=== PATIENT | female | born 1945 | race Caucasian/White ===

== ENCOUNTER 2020-06-04 11:11 | Outpatient (CLI) | payer MEDICARE, SELFPAY ==
--- NOTE | 2020-06-04 11:16 | ECG_ITS ---
Measurements Intervals [place] Rate: 115 P: [place]: 0 QRS: 224 QRSD: 149 T: 64 QT: 329 QTc: 457 Interpretive Statements ATRIAL FLUTTER/TACHYCARDIA WITH RAPID VENTRICULAR RESPONSE RIGHT AXIS DEVIATION RIGHT BUNDLE BRANCH BLOCK ABNORMAL ECG Electronically Signed On 06-04-2020 11:35:34 CDT by Eriberto Barone D.O.
== END 2020-06-04 11:12 | disposition home or self-care (01) ==
LOC: CHSCARD 11:16
PROVIDERS: PCP Nurse Practitioner Family; Visit Provider Family Medicine
DX: R00.0 Tachycardia, unspecified (principal)
CPT/HCPCS: 93005

== ENCOUNTER 2020-06-04 13:12 | Inpatient (IN) | payer MEDICARE, SELFPAY ==
[2020-06-04] VITALS (9 sets, daily range): BP systolic 122–145; BP diastolic 74–85; PULSE 116–120; RESP 13–20; TEMP 36.3–36.7; O2SAT 96–100; BMI 28.2
--- NOTE | ~2020-06-04 | XR_ITS ---
EXAMINATION: XR chest 2V DATE: 06/04/2020 14:31 INDICATION: Tachycardia. Chronic obstructive pulmonary disease. TECHNIQUE: Frontal and lateral views of the chest were obtained. COMPARISON: Chest 2 views 07/10/2017 FINDINGS: The chest demonstrates clear lungs without pneumonia, pleural effusion, or pneumothorax. Th e heart size is normal. IMPRESSION: 1. No acute cardiopulmonary disease. Reviewed, dictated and finalized at location A.
--- NOTE | 2020-06-04 13:39 | ECG_ITS ---
Measurements Intervals [place] Rate: 117 P: 178 NM: 231 QRS: 257 QRSD: 141 T: -19 QT: 372 QTc: 519 Interpretive Statements ATRIAL FLUTTER/TACHYCARDIA WITH RAPID VENTRICULAR RESPONSE RIGHT AXIS DEVIATION RIGHT BUNDLE BRANCH BLOCK ABNORMAL ECG Electronically Signed On 06-04-2020 14:12:55 CDT by Eriberto Barone D.O.
[2020-06-04] MEDS: SODIUM CHLORIDE 0.9% IV 1,000 ML 999 ML IV CONT (13:50)
[2020-06-04 14:12] LABS: Hematocrit 41.8 % (35.0-42.0); Hemoglobin 14.3 g/dL (11.7-13.8); Mean Corpuscular HGB Conc 34.2 g/dL (32.0-36.0); Mean Corpuscular Hemoglobin 33.3 pg (27.0-31.0); Mean Corpuscular Volume 97.4 fL (78.0-102.0); Mean Platelet Volume 8.6 fl (9.2-11.8); Platelet Count Result 248 K/mm3 (150-420); Red Blood Count 4.29 M/mm3 (4.20-5.40); Red Cell Distribution Width 14.1 % (11.6-14.4); White Blood Count 7.3 K/mm3 (4.8-10.8)
[2020-06-04 14:28] LABS: BNP 162 pg/mL (0-100)
[2020-06-04 14:38] LABS: Alanine Aminotransferase 20 U/L (14-59); Albumin Level 3.7 g/dL (3.4-5.0); Alkaline Phosphatase 97 U/L (46-116); Anion Gap 9 mmol/L (8-16); Aspartate Amino Transferase 18 U/L (15-37); Bilirubin,Total 0.7 mg/dL (0.00-1.00); Blood Urea Nitrogen 9 mg/dL (7-18); Carbon Dioxide 29 mmol/L (21-32); Chloride 98 mmol/L (98-108); Estimated Glomerular Filt Rate > 60; Glucose 138 mg/dL (70-99); Osmolality Calculated 282 mOsm/kg (285-295); Potassium 3.7 mmol/L (3.5-5.1); Sodium 136 mmol/L (136-145); Total Protein 7.1 g/dL (6.4-8.2)
[2020-06-04 14:39] LABS: Thyroid Stimulating Hormone 1.45 uIU/mL (0.36-3.74); Troponin I < 0.02 ng/mL (0.00-0.056)
[2020-06-04] MEDS: dilTIAZem HCl INJ 25 MG/5 ML VIAL 10 MG IV PUSH ×2 (14:48→15:30)
--- NOTE | 2020-06-04 16:01 | ED.ARRPALP ---
HPI - Arrhythmia/Palpitations General Chief Complaint: Arrhythmia/Palpitations Stated Complaint: Heart rate is high Source: patient and family Mode of arrival: ambulatory History of Present Illness HPI narrative: this is a 74-year-old female that presents after her primary care physician reviewed her EKG and found that she was in AFib/a flutter and recommended that she present to the emergency department. Currently the patient is asymptomatic with no chest pain no shortness of breath no abdominal no palpitations no fever chills. Patient has a history of COPD, diabetes mellitus type 2 with hypertension and a history of alcohol use drinks about 2 to 3 glasses of whiskey with Coke each night. MD complaint: rapid heart beat and atrial fibrillation Onset (ago): hour(s) Duration: constant Severity: moderate Context: occurred during rest Associated symptoms: denies other symptoms Related Data Home Medications Medication Instructions Recorded Confirmed budesonide 0.5 mg/2 mL suspension 0.5 mg INHALATION BID ml 08/12/19 06/04/20 for nebulization formoterol fumarate 20 mcg/2 mL 20 mcg INHALATION BID ml 08/12/19 06/04/20 solution for nebulization vitamins A,C,R-wewn-zxklka 14,320 1 cap PO BID 08/12/19 06/04/20 unit-226 mg-200 unit capsule amlodipine 10 mg PO DAILY 06/04/20 06/04/20 atenolol 50 mg PO DAILY 06/04/20 06/04/20 cholecalciferol (vitamin D3) 50 50 mcg PO DAILY 06/04/20 06/04/20 mcg (2,000 unit) capsule meloxicam 7.5 mg PO DAILY 06/04/20 06/04/20 metformin 500 mg PO DAILY 06/04/20 06/04/20 spironolactone 50 mg PO DAILY 06/04/20 06/04/20 Allergies Allergy/AdvReac Type Severity Reaction Status Date / Time JOAQUINA Inhibitors Allergy Intermediate angioedema Verified 06/13/11 14:19 acetaminophen Allergy Intermediate Sleepiness Verified 05/12/14 11:16 [Tylenol-Codeine #3] codeine [Tylenol-Codeine #3] Allergy Intermediate Sleepiness Verified 05/12/14 11:16 hydrochlorothiazide [Dyazide] Allergy Intermediate Hyponatremi Verified 06/13/11 13:49 a lisinopril Allergy Intermediate TONGUE Verified 08/28/18 12:34 SWELLING tramadol Allergy Intermediate nausea Verified 05/12/14 11:16 triamterene [Dyazide] Allergy Intermediate Hyponatremi Verified 06/13/11 13:49 a Review of Systems Review of Systems: All systems reviewed & are unremarkable except as noted in HPI and below PMFSH Past Medical History Medical History COPD (chronic obstructive pulmonary disease) Hearing loss Hypertension associated with diabetes Hypertensive retinopathy of both eyes Left wrist pain Macular degeneration Nicotine dependence Osteoarthritis Osteopenia Overweight Pseudophakia Type 2 diabetes mellitus, without long-term current use of insulin Venous stasis ulcer Vitamin D deficiency Surgical History Surgical History History of appendectomy History of cataract removal with insertion of prosthetic lens Right eye only History of cholecystectomy History of right knee joint replacement (~2014) Family History Family History Father Hypertension Mother Hypertension Ovarian cancer Social History Social History Smoking packs per day: 1 Smoking cigarettes per day: 20.0 Years smoked: 60 Smoking pack-years: 60.00 Smoking status: Current every day smoker Tobacco type: cigarettes Alcohol intake: never Substance use: never Substance use type: does not use 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 Gender identity (if verbalized by the patient): Female Exam Const: General: healthy appearing, no acute distress and alert Orientation/consciousness: patient oriented x3 HENMT: Head: normal to inspection Eyes: Conjunctivae: conjunctivae normal Pupils: Equal, round and reac
--- NOTE | 2020-06-04 17:00 | PC.NURSE ---
Patient admitted to floor from ED, oriented to room and call light. Telemetry applied.
[2020-06-04 17:01] LABS: Magnesium 1.5 mg/dL (1.8-2.4)
[2020-06-04] MEDS: BUDESONIDE RESPULE NEB 0.5 MG/2 ML AMP INHALATION (17:54)
[2020-06-04 18:52] LABS: Troponin I < 0.02 ng/mL (0.00-0.056)
[2020-06-04] MEDS: APIXABAN 2.5 MG TABLET PO (21:01)
[2020-06-04 21:39] LABS: Troponin I < 0.02 ng/mL (0.00-0.056)
[2020-06-05] VITALS (15 sets, daily range): BP systolic 112–141; BP diastolic 57–87; PULSE 56–120; RESP 16–18; TEMP 36.4–36.7; O2SAT 94–98
--- NOTE | 2020-06-05 03:34 | PC.NURSE ---
Telemetry continues. Denies discomfort.
[2020-06-05 05:56] LABS: Basophils Absolute Auto 0.04 K/mm3 (0.00-0.10); Basophils Percent Auto 0.6 % (0.0-1.0); Eosinophils Absolute Auto 0.11 K/mm3 (0.02-0.50); Eosinophils Percent Auto 1.7 % (1.0-6.0); Hematocrit 43.2 % (35.0-42.0); Hemoglobin 14.4 g/dL (11.7-13.8); Immature Granulocyte Absolute 0.01 K/mm3 (0.00-0.00); Immature Granulocyte Percent A 0.2 % (0.0-0.0); Lymphocytes Absolute Auto 1.78 K/mm3 (1.10-4.50); Lymphocytes Percent Auto 27.3 % (18.0-42.0); Mean Corpuscular HGB Conc 33.3 g/dL (32.0-36.0); Mean Corpuscular Hemoglobin 32.9 pg (27.0-31.0); Mean Corpuscular Volume 98.6 fL (78.0-102.0); Mean Platelet Volume 8.4 fl (9.2-11.8); Monocytes Absolute Auto 0.86 K/mm3 (0.10-0.90); Monocytes Percent Auto 13.2 % (2.0-11.0); Neutrophils Absolute Auto 3.7 K/mm3 (1.7-7.2); Platelet Count Result 240 K/mm3 (150-420); Red Blood Count 4.38 M/mm3 (4.20-5.40); Red Cell Distribution Width 14.4 % (11.6-14.4); White Blood Count 6.5 K/mm3 (4.8-10.8)
[2020-06-05 06:12] LABS: Alanine Aminotransferase 20 U/L (14-59); Albumin Level 3.9 g/dL (3.4-5.0); Alkaline Phosphatase 98 U/L (46-116); Anion Gap 9 mmol/L (8-16); Aspartate Amino Transferase 19 U/L (15-37); Bilirubin,Total 0.9 mg/dL (0.00-1.00); Blood Urea Nitrogen 5 mg/dL (7-18); Carbon Dioxide 29 mmol/L (21-32); Chloride 99 mmol/L (98-108); Estimated Glomerular Filt Rate > 60; Glucose 123 mg/dL (70-99); Osmolality Calculated 282 mOsm/kg (285-295); Potassium 3.4 mmol/L (3.5-5.1); Sodium 137 mmol/L (136-145); Total Protein 7.4 g/dL (6.4-8.2)
--- NOTE | 2020-06-05 07:15 | ECG_ITS ---
Measurements Intervals [place] Rate: 117 P: [place]: 0 QRS: 214 QRSD: 142 T: 23 QT: 361 QTc: 505 Interpretive Statements ATRIAL FLUTTER/TACHYCARDIA WITH RAPID VENTRICULAR RESPONSE RIGHT AXIS DEVIATION RIGHT BUNDLE BRANCH BLOCK BASELINE ARTIFACT- V3-V4 ABNORMAL ECG Electronically Signed On 06-05-2020 8:05:48 CDT by Eriberto Barone D.O.
--- NOTE | 2020-06-05 07:18 | PC.NURSE ---
Up in chair, denies needs, wants to go home, no chest pain
[2020-06-05] MEDS: BUDESONIDE RESPULE NEB 0.5 MG/2 ML AMP INHALATION ×2 (09:18→17:59)
[2020-06-05] MEDS: POTASSIUM CHLORIDE 20 MEQ TABLET 40 MEQ PO (09:24)
[2020-06-05] MEDS: APIXABAN 2.5 MG TABLET PO ×2 (09:25→11:06)
[2020-06-05] MEDS: metFORMIN HCL 500 MG TABLET PO (09:26)
[2020-06-05] MEDS: SPIRONOLACTONE 25 MG TABLET 50 MG PO (09:26)
[2020-06-05] MEDS: atenoloL 50 MG TABLET PO (09:26)
[2020-06-05] MEDS: OPTI-GEN TAB 1 TABLET PO ×2 (09:26→16:48)
[2020-06-05] MEDS: CHOLECALCIFEROL 1,000 UNITS TABLET 2000 UNITS PO (09:27)
--- NOTE | 2020-06-05 09:35 | PC.NURSE ---
Echo complete, am meds given, care coordination in to speak with patient, telemetry afib 118
--- NOTE | 2020-06-05 10:32 | PHAR ---
VERIFIED PT.'S PROAIR INHALER. TLS
--- NOTE | 2020-06-05 11:20 | PM.IMHP ---
H&P: HPI History of Present Illness Date/Time: 06/05/20 11:20 <MIKE Isaacs - Last Filed: 06/05/20 11:43> Chief complaint: tachycardia afib <MIKE Isaacs - Last Filed: 06/05/20 11:43> Narrative: Kelly Kaba is a 74 year old female that was sent from her primary care office Angélica Wang NP due to a EKG that indicated that she was in A. fib/a flutter. Patient has a past medical history of COPD, hearing loss, hypertension, diabetes, macular degeneration, nicotine dependency, osteoarthritis, osteopenia overweight, venous status ulcer, vitamin D and pseudophakia. The patient is asymptomatic and has no complaints of chest pain, palpitation, shortness of breath, dizziness, confusion, or weakness. Patient lives vital signs are 98.1, 18, 98, 123/80 with a heart rate between 110's and 120s. While in the ED patient was given Cardizem 20 mg IV, she was prescribed Cardizem 180 mg daily which was changed to 240 mg daily. Patient was also placed on Eliquis 5 mg every 12 hours. Patient has no complaints at this time and is anxious for discharge. She will possibly discharge tomorrow once her heart rate is better controlled. <MIKE Isaacs - Last Filed: 06/05/20 11:43> Review of Systems Review of Systems: All systems reviewed & are unremarkable except as noted in HPI and below (10 point system review) <MIKE Isaacs - Last Filed: 06/05/20 11:43> [facility] Past Medical History Medical History: Medical History COPD (chronic obstructive pulmonary disease) Hearing loss Hypertension associated with diabetes Hypertensive retinopathy of both eyes Left wrist pain Macular degeneration Nicotine dependence Osteoarthritis Osteopenia Overweight Pseudophakia Type 2 diabetes mellitus, without long-term current use of insulin Venous stasis ulcer Vitamin D deficiency <MIKE Isaacs - Last Filed: 06/05/20 11:43> Surgical History Surgical History: Surgical History History of appendectomy History of cataract removal with insertion of prosthetic lens Right eye only History of cholecystectomy History of right knee joint replacement (~2014) <MIKE Isaacs - Last Filed: 06/05/20 11:43> Family History Family History: Family History Father Hypertension Mother Hypertension Ovarian cancer <MIKE Isaacs - Last Filed: 06/05/20 11:43> Social History Social History: Social History Smoking packs per day: 1 Smoking cigarettes per day: 20.0 Years smoked: 60 Smoking pack-years: 60.00 Smoking status: Current every day smoker Tobacco type: cigarettes Second hand tobacco smoke exposure: No Alcohol intake: never Drinks per week: 21 Substance use: never Substance use type: does not use 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 Gender identity (if verbalized by the patient): Female Spiritual care concerns: No <MIKE Isaacs - Last Filed: 06/05/20 11:43> Meds Home Medications and Allergies Home medications: Home Medications Medication Instructions Recorded Confirmed Type budesonide 0.5 mg/2 mL suspension 0.5 mg INHALATION BID ml 08/12/19 06/04/20 History for nebulization formoterol fumarate 20 mcg/2 mL 20 mcg INHALATION BID ml 08/12/19 06/04/20 History solution for nebulization vitamins A,C,F-xcmy-qjumov 14,320 1 cap PO BID 08/12/19 06/04/20 History unit-226 mg-200 unit capsule amlodipine 10 mg PO DAILY 06/04/20 06/04/20 History atenolol 50 mg PO DAILY 06/04/20 06/04/20 History cholecalciferol (vitamin D3) 50 50 mcg PO DAILY 06/04/20 06/04/20 History mcg (2,000 unit) capsule meloxicam 7.5 mg PO DAILY 06/04/20 06/04/20 History metformin 500 mg PO PETER
--- NOTE | 2020-06-05 15:52 | PC.NURSE ---
In chair, denies needs, watching TV, telemetry rate decreased to 60 at this time
--- NOTE | 2020-06-05 16:17 | ECHO_ITS ---
Patient Info Name: Kelly Kaba Age: 74 years : 1945 Gender: Female Ht: 59 in Wt: 139 lbs BSA: 1.64 m2 HR: 116 bpm BP: 123 / 80 mmHg Technical Quality: Fair Exam Date: 06/05/2020 8:06 AM Exam Location: [facility] EM[facility] Patient Status: Inpatient Admit Date: 06/04/2020 Staff Ordering Physician: Bon King MD Cot Assembler: Wanda Packer RDCS Attending Provider: Bon King MD Referring Physician: Fernando BOOGIE; Exam Type: CA echo doppler color flow Study Info Indications I45.10 - Unspecified right bundle-branch block R94.31 - Abnormal electrocardiogram ECG EKG R00.0 - Tachycardia, unspecified I49.9 - Cardiac arrhythmia, unspecified Complete two-dimensional, color flow and Doppler transthoracic echocardiogram is performed. Strain analysis performed. History/Risk Factors Hypertension: Yes Congenital Heart Disease (CHD): No Diabetic Therapy: Oral Myocardial Infarction (MS): No Chronic Lung Disease: No Obesity: Yes Renal Disease: No Coronary Artery Disease (CAD) No Congestive Heart Failure (CHF): No Cardiomyopathy/LV Systolic Dysfunction: No Date of Last Tobacco Use: 06/04/2020 Diabetes Mellitus: Type II COPD: On Meds Tobacco Use: Current - Every Day If Any Current, Tobacco Type: Cigarettes If Current - Every Day \T\ Cigarettes, Amount: Heavy Tobacco Use (>=10/day) Cerebrovascular Disease: No DVT Treatment: Apixaban Deep Vein Thrombosis (DVT): None Dialysis: None Cardiac Arrest: No Summary 1. Complete two-dimensional, color flow and Doppler transthoracic echocardiogram is performed. 2. Left ventricular chamber dimension is normal. 3. Left ventricular systolic function is normal, estimated at 60-65%. 4. There is moderately increased left ventricular wall thickness. 5. The left ventricular diastolic function is abnormal. 6. E/e' 16 is elevated. 7. Global longitudinal strain is abnormal at -15.7%. 8. Left atrial chamber dimension is mildly enlarged. 9. There is mild aortic valve sclerosis. 10. There is mild tricuspid valve regurgitation. 11. Mild pulmonary hypertension, estimated pulmonary arterial systolic pressure is 44 mmHg. 12. Normal inferior vena cava with <50% collapse upon inspiration consistent with elevated right atrial pressure, 10 mmHg. Recommendations * Continue medical therapy for diabetes. * Smoking cessation counseling is recommended for this patient. Left Ventricle E/e' 16 is elevated. Global longitudinal strain is abnormal at -15.7%. Left ventricular chamber dimension is normal. Left ventricular systolic function is normal, estimated at 60-65%. There is moderately increased left ventricular wall thickness. The left ventricular diastolic function is abnormal. Right Ventricle Right ventricular chamber dimension is normal. Right ventricular systolic function is normal. Left Atria Left atrial chamber dimension is mildly enlarged. Right Atria Right atrial chamber dimension is normal. Aortic Valve The aortic valve is trileaflet. There is mild aortic valve sclerosis. There is no aortic valve stenosis. There is no aortic valve regurgitation. Pulmonic Valve There is no pulmonic regurgitation. Mitral Valve There is no mitral valve stenosis. There is no mitral valve regurgitation. Tricuspid Valve There is mild tricuspid valve regurgitation. Mild pulmonary hypertension, estimated pulmonary arterial systo
[2020-06-05] MEDS: APIXABAN 2.5 MG TABLET 5 MG PO (20:44)
--- NOTE | 2020-06-05 23:57 | PC.NURSE ---
Telemetry continues. Denies discomfort.
[2020-06-06] VITALS (14 sets, daily range): BP systolic 106–134; BP diastolic 52–84; PULSE 43–120; RESP 16–18; TEMP 36.4–37.1; O2SAT 95–98
[2020-06-06] MEDS: BUDESONIDE RESPULE NEB 0.5 MG/2 ML AMP INHALATION ×2 (05:35→17:50)
[2020-06-06 05:42] LABS: Hematocrit 41.2 % (35.0-42.0); Hemoglobin 13.8 g/dL (11.7-13.8); Mean Corpuscular HGB Conc 33.5 g/dL (32.0-36.0); Mean Corpuscular Hemoglobin 32.9 pg (27.0-31.0); Mean Corpuscular Volume 98.1 fL (78.0-102.0); Mean Platelet Volume 8.7 fl (9.2-11.8); Platelet Count Result 236 K/mm3 (150-420); Red Cell Distribution Width 14.2 % (11.6-14.4); White Blood Count 7.3 K/mm3 (4.8-10.8)
[2020-06-06 05:58] LABS: Alanine Aminotransferase 21 U/L (14-59); Albumin Level 3.7 g/dL (3.4-5.0); Alkaline Phosphatase 92 U/L (46-116); Anion Gap 7 mmol/L (8-16); Aspartate Amino Transferase 19 U/L (15-37); Bilirubin,Total 0.8 mg/dL (0.00-1.00); Blood Urea Nitrogen 6 mg/dL (7-18); CRP < 0.5 mg/dL (0.0-0.9); Calcium 9.6 mg/dL (8.5-10.1); Carbon Dioxide 28 mmol/L (21-32); Chloride 100 mmol/L (98-108); Estimated Glomerular Filt Rate > 60; Glucose 125 mg/dL (70-99); Magnesium 1.7 mg/dL (1.8-2.4); Osmolality Calculated 278 mOsm/kg (285-295); Potassium 4.1 mmol/L (3.5-5.1); Sodium 135 mmol/L (136-145); Total Protein 7.2 g/dL (6.4-8.2)
--- NOTE | 2020-06-06 07:18 | PC.NURSE ---
2330 Pt's heart rate is 39-40; Pt doesnt voice any c/o dizziness, weakness or shortness of breath.
[2020-06-06] MEDS: CHOLECALCIFEROL 1,000 UNITS TABLET 2000 UNITS PO (08:50)
[2020-06-06] MEDS: SPIRONOLACTONE 25 MG TABLET 50 MG PO (08:51)
[2020-06-06] MEDS: metFORMIN HCL 500 MG TABLET PO (08:51)
[2020-06-06] MEDS: atenoloL 50 MG TABLET PO (08:51)
[2020-06-06] MEDS: dilTIAZem HCL CD 180 MG CAP.ER.24H PO (08:51)
[2020-06-06] MEDS: OPTI-GEN TAB 1 TABLET PO ×2 (08:51→16:47)
[2020-06-06] MEDS: APIXABAN 2.5 MG TABLET 5 MG PO ×2 (08:51→20:07)
--- NOTE | 2020-06-06 09:24 | P.PN_ITS ---
Progress Note: A&P Assessment and Plan (1) Atypical atrial flutter: Code(s): I48.4 - Atypical atrial flutter Status: Acute Assessment and Plan: * EKG indicate a flutter/tachycardia with RVR with a heart rate of 117 * Patient asymptomatic * Started Cardizem 240 mg yesterday decrease the amount to Cardizem 180 mg daily due to bradycardia * Continue telemetry * Heart rate as high as 120 while standing up or ambulating and went as low as 30s to 40s overnight * Will adjust medication as needed * Patient on atenolol 50 mg daily * Eliquis 5 mg every 12 hours started (2) Tachycardia: Code(s): R00.0 - Tachycardia, unspecified Status: Acute Assessment and Plan: * Refer to Donell maldonado (3) Nicotine dependence: Code(s): F17.200 - Nicotine dependence, unspecified, uncomplicated Status: Acute Assessment and Plan: * Patient refused nicotine * Educated on cessation (4) COPD (chronic obstructive pulmonary disease): Code(s): J44.9 - Chronic obstructive pulmonary disease, unspecified Status: Acute Assessment and Plan: * Stable * Continue budesonide and as needed albuterol (5) Type 2 diabetes mellitus, without long-term current use of insulin: Code(s): E11.9 - Type 2 diabetes mellitus without complications Status: Acute Assessment and Plan: * Stable * Blood sugar 125 * Continue metformin 500 mg p.o. daily * (6) Vitamin D deficiency: Code(s): E55.9 - Vitamin D deficiency, unspecified Status: Acute Assessment and Plan: * Continue cholecalciferol (7) Hypertension associated with diabetes: Code(s): E11.59 - Type 2 diabetes mellitus with other circulatory complications; I10 - Essential (primary) hypertension Status: Acute Assessment and Plan: * * Continue spironolactone 50 mg p.o. daily and atenolol 50 mg p.o. daily * Will adjust as needed * Vital signs as ordered (8) Alcohol use disorder: Status: Acute Assessment and Plan: * Patient drinks 2 to 3 glasses of whiskey with coke daily * Librium added as needed for withdrawal symptoms * Patient educated on cessation Review of Systems Review of Systems: All systems reviewed & are unremarkable except as noted in HPI and below (10 point system review) Exam Narrative: Exam Narrative: GENERAL: This is a well-nourished, well-developed patient, in no apparent distress. HEAD: normocephalic, atraumatic. EYES: PERRL. Sclera clear/white. Vision is grossly intact. EARS: External ears normal, auditory canals clear and without drainage, TMs normal without perforation. Hearing grossly intact. NOSE: External nose normal with no obvious nasal discharge, nares without redness, no rhinorrhea. THROAT: Mucous membranes moist, posterior pharynx clear. NECK: Neck supple, non-tender without lymphadenopathy, masses or thyromegaly. CARDIOVASCULAR: irregular rate and irregular rhythm RESPIRATORY: Clear to auscultation. Breath sounds equal bilaterally. No wheezes, rales, or rhonchi. GASTROINTESTINAL: Abdomen soft, non-tender, nondistended. Bowel sounds are active. No hepato-splenomegaly, or palpable masses. No guarding. SKIN: warm, intact with no suspicious lesions or rash, good texture and turgor. NEURO: awake, alert, and oriented to person, place and time. There were no obvious focal neurologic abnormalities. Steady gait EXTREMITIES: Normal range of motion. No edema. No calf tenderness. Negative Homans sign bilaterally. BACK: Nontender without deformity or crepitance. No flank tendern
--- NOTE | 2020-06-06 09:24 | WPDPN ---
Progress Note: A&P Assessment and Plan (1) Atypical atrial flutter: Code(s): I48.4 - Atypical atrial flutter Status: Acute Assessment and Plan: EKG indicate a flutter/tachycardia with RVR with a heart rate of 117 Patient asymptomatic Started Cardizem 240 mg yesterday decrease the amount to Cardizem 180 mg daily due to bradycardia Continue telemetry Heart rate as high as 120 while standing up or ambulating and went as low as 30s to 40s overnight Will adjust medication as needed Patient on atenolol 50 mg daily Eliquis 5 mg every 12 hours started (2) Tachycardia: Code(s): R00.0 - Tachycardia, unspecified Status: Acute Assessment and Plan: Refer to AKasey maldonado (3) Nicotine dependence: Code(s): F17.200 - Nicotine dependence, unspecified, uncomplicated Status: Acute Assessment and Plan: Patient refused nicotine Educated on cessation (4) COPD (chronic obstructive pulmonary disease): Code(s): J44.9 - Chronic obstructive pulmonary disease, unspecified Status: Acute Assessment and Plan: Stable Continue budesonide and as needed albuterol (5) Type 2 diabetes mellitus, without long-term current use of insulin: Code(s): E11.9 - Type 2 diabetes mellitus without complications Status: Acute Assessment and Plan: Stable Blood sugar 125 Continue metformin 500 mg p.o. daily (6) Vitamin D deficiency: Code(s): E55.9 - Vitamin D deficiency, unspecified Status: Acute Assessment and Plan: Continue cholecalciferol (7) Hypertension associated with diabetes: Code(s): E11.59 - Type 2 diabetes mellitus with other circulatory complications; I10 - Essential (primary) hypertension Status: Acute Assessment and Plan: Continue spironolactone 50 mg p.o. daily and atenolol 50 mg p.o. daily Will adjust as needed Vital signs as ordered (8) Alcohol use disorder: Status: Acute Assessment and Plan: Patient drinks 2 to 3 glasses of whiskey with coke daily Librium added as needed for withdrawal symptoms Patient educated on cessation Review of Systems Review of Systems: All systems reviewed & are unremarkable except as noted in HPI and below (10 point system review) Exam Narrative: Exam Narrative: GENERAL: This is a well-nourished, well-developed patient, in no apparent distress. HEAD: normocephalic, atraumatic. EYES: PERRL. Sclera clear/white. Vision is grossly intact. EARS: External ears normal, auditory canals clear and without drainage, TMs normal without perforation. Hearing grossly intact. NOSE: External nose normal with no obvious nasal discharge, nares without redness, no rhinorrhea. THROAT: Mucous membranes moist, posterior pharynx clear. NECK: Neck supple, non-tender without lymphadenopathy, masses or thyromegaly. CARDIOVASCULAR: irregular rate and irregular rhythm RESPIRATORY: Clear to auscultation. Breath sounds equal bilaterally. No wheezes, rales, or rhonchi. GASTROINTESTINAL: Abdomen soft, non-tender, nondistended. Bowel sounds are active. No hepato-splenomegaly, or palpable masses. No guarding. SKIN: warm, intact with no suspicious lesions or rash, good texture and turgor. NEURO: awake, alert, and oriented to person, place and time. There were no obvious focal neurologic abnormalities. Steady gait EXTREMITIES: Normal range of motion. No edema. No calf tenderness. Negative Homans sign bilaterally. BACK: Nontender without deformity or crepitance. No flank tenderness. Objective Data Vital Signs Vital Signs: Vital Signs - 24 hr 06/05/20 09:26 06/05/20 09:29 06/05/20 11:12 Temperature Pulse Rate 116 H 119 H 118 H Respiratory Rate 18 Blood Pressure Pulse Oximetry 06/05/20 12:00 06/05/20 14:01 06/05/20 15:07 Temperature 98.1 F 97.8 F Pulse Rate 116 H 80 60 Respiratory Rate 18 18 Blood Pressure 141/87 H 112/57 L Pulse Oximetry 95 98 06/05/20 18
[2020-06-06] MEDS: MAGNESIUM SULF 2 GM/WATER 50ML 2 GM/50 ML BAG IVPB (09:30)
[2020-06-06 11:27] LABS: D Dimer 0.53 mg/L (0.19-0.50)
--- NOTE | 2020-06-06 15:21 | PC.NURSE ---
In chair watching TV, denies needs, no chest pain, no sob noted, independent in room
--- NOTE | 2020-06-06 16:31 | PC.NURSE ---
No needs voiced, in chair at this time
--- NOTE | 2020-06-06 20:21 | PC.NURSE ---
In bed watching TV, personal items and call light in reach of patient, denies needs
--- NOTE | 2020-06-06 21:40 | PM.EVENT ---
Event Note Event Note Event Note: I have examined the patient and reviewed the chart. I discussed the patient's care with Keyshawn Beebe APN and agree with her assessment and plan.
--- NOTE | 2020-06-06 22:49 | PC.NURSE ---
Eyes closed respirations non labored, telemetry afib 58
--- NOTE | 2020-06-07 01:35 | PC.NURSE ---
Resting in bed, no distress, telemetry afib 58-60
--- NOTE | 2020-06-07 03:30 | PC.NURSE ---
Resting in bed, no distress noted, call light in reach
[2020-06-07 04:00] VITALS: BP 112/60; PULSE 58; RESP 18; TEMP 36.6; O2SAT 95
--- NOTE | 2020-06-07 05:13 | PC.NURSE ---
Awake, up in chair, denies needs, telemetry afib 70's
[2020-06-07 05:33] LABS: Hematocrit 38.6 % (35.0-42.0); Mean Corpuscular HGB Conc 33.7 g/dL (32.0-36.0); Mean Corpuscular Hemoglobin 33.1 pg (27.0-31.0); Mean Corpuscular Volume 98.2 fL (78.0-102.0); Platelet Count Result 239 K/mm3 (150-420); Red Blood Count 3.93 M/mm3 (4.20-5.40); Red Cell Distribution Width 14.2 % (11.6-14.4); White Blood Count 7.4 K/mm3 (4.8-10.8)
[2020-06-07] MEDS: BUDESONIDE RESPULE NEB 0.5 MG/2 ML AMP INHALATION (05:35)
[2020-06-07 05:37] VITALS: PULSE 65; RESP 16
[2020-06-07 05:47] VITALS: PULSE 66; RESP 16
[2020-06-07 05:50] LABS: Alanine Aminotransferase 18 U/L (14-59); Albumin Level 3.7 g/dL (3.4-5.0); Alkaline Phosphatase 90 U/L (46-116); Anion Gap 8 mmol/L (8-16); Aspartate Amino Transferase 16 U/L (15-37); Bilirubin,Total 0.7 mg/dL (0.00-1.00); Blood Urea Nitrogen 8 mg/dL (7-18); Calcium 9.2 mg/dL (8.5-10.1); Carbon Dioxide 28 mmol/L (21-32); Chloride 98 mmol/L (98-108); Estimated Glomerular Filt Rate > 60; Glucose 128 mg/dL (70-99); Osmolality Calculated 278 mOsm/kg (285-295); Potassium 4.2 mmol/L (3.5-5.1); Sodium 134 mmol/L (136-145); Total Protein 6.7 g/dL (6.4-8.2)
[2020-06-07 07:40] VITALS: BP 115/59; PULSE 60; RESP 18; TEMP 36.9; O2SAT 97
[2020-06-07] MEDS: OPTI-GEN TAB 1 TABLET PO (08:31)
[2020-06-07] MEDS: CHOLECALCIFEROL 1,000 UNITS TABLET 2000 UNITS PO (08:31)
[2020-06-07 08:32] VITALS: PULSE 60
[2020-06-07] MEDS: SPIRONOLACTONE 25 MG TABLET 50 MG PO (08:32)
[2020-06-07] MEDS: atenoloL 50 MG TABLET PO (08:32)
[2020-06-07] MEDS: metFORMIN HCL 500 MG TABLET PO (08:32)
[2020-06-07] MEDS: dilTIAZem HCL CD 180 MG CAP.ER.24H PO (08:32)
[2020-06-07] MEDS: APIXABAN 2.5 MG TABLET 5 MG PO (08:32)
--- NOTE | 2020-06-07 09:00 | P.DS_ITS ---
DS: Admitting Diagnosis Admitting Diagnosis Admitting Diagnosis: tachycardia afib DS: Discharge Diagnosis Discharge Diagnosis (1) Atypical atrial flutter: Code(s): I48.4 - Atypical atrial flutter Status: Acute Assessment and Plan: * EKG indicate a flutter/tachycardia with RVR with a heart rate of 117 * Patient asymptomatic * Started Cardizem 240 mg yesterday decrease the amount to Cardizem 180 mg daily due to bradycardia * Continue telemetry * Heart rate as high as 120 while standing up or ambulating and went as low as 30s to 40s overnight * Will adjust medication as needed * Patient on atenolol 50 mg daily * Eliquis 5 mg every 12 hours started * Heart rate on the day of discharge between 58 while sleeping and 80s (2) Tachycardia: Code(s): R00.0 - Tachycardia, unspecified Status: Acute Assessment and Plan: * Refer to A. erica * Patient will be referred to a cardiology (3) Nicotine dependence: Code(s): F17.200 - Nicotine dependence, unspecified, uncomplicated Status: Acute Assessment and Plan: * Patient refused nicotine * Educated on cessation (4) COPD (chronic obstructive pulmonary disease): Code(s): J44.9 - Chronic obstructive pulmonary disease, unspecified Status: Acute Assessment and Plan: * Stable * Continue budesonide and as needed albuterol (5) Type 2 diabetes mellitus, without long-term current use of insulin: Code(s): E11.9 - Type 2 diabetes mellitus without complications Status: Acute Assessment and Plan: * Stable * Blood sugar 176 * Continue metformin 500 mg p.o. daily * (6) Vitamin D deficiency: Code(s): E55.9 - Vitamin D deficiency, unspecified Status: Acute Assessment and Plan: * Continue cholecalciferol (7) Hypertension associated with diabetes: Code(s): E11.59 - Type 2 diabetes mellitus with other circulatory complications; I10 - Essential (primary) hypertension Status: Acute Assessment and Plan: * * Continue spironolactone 50 mg p.o. daily and atenolol 50 mg p.o. daily * Will adjust as needed * Vital signs as ordered (8) Alcohol use disorder: Status: Acute Assessment and Plan: * Patient drinks 2 to 3 glasses of whiskey with coke daily * No withdrawal symptoms this day * Patient educated on cessation * Patient is educated on high risk for bleeding due to anticoagulant and alcohol use DS: Summary Time Spent with Patient Time attestation: Total time spent providing and/or coordinating discharge services:60 Exam Narrative: Exam Narrative: GENERAL: This is a well-nourished, well-developed patient, in no apparent distress. HEAD: normocephalic, atraumatic. EYES: PERRL. Sclera clear/white. Vision is grossly intact. EARS: External ears normal, auditory canals clear and without drainage, TMs normal without perforation. Hearing grossly intact. NOSE: External nose normal with no obvious nasal discharge, nares without redness, no rhinorrhea. THROAT: Mucous membranes moist, posterior pharynx clear. NECK: Neck supple, non-tender without lymphadenopathy, masses or thyromegaly. CARDIOVASCULAR: irregular rate and irregular rhythm RESPIRATORY: Clear to auscultation. Breath sounds equal bilaterally. No wheezes, rales, or rhonchi. GASTROINTESTINAL: Abdomen soft, non-tender, nondistended. Bowel sounds are active. No hepato-splenomegaly, or palpable masses. No guarding. SKIN: warm, intact with no suspicious lesions or rash, good texture and turgor. NEURO: awake, alert
--- NOTE | 2020-06-07 09:00 | PM.DS ---
DS: Admitting Diagnosis Admitting Diagnosis Admitting Diagnosis: tachycardia afib DS: Discharge Diagnosis Discharge Diagnosis (1) Atypical atrial flutter: Code(s): I48.4 - Atypical atrial flutter Status: Acute Assessment and Plan: EKG indicate a flutter/tachycardia with RVR with a heart rate of 117 Patient asymptomatic Started Cardizem 240 mg yesterday decrease the amount to Cardizem 180 mg daily due to bradycardia Continue telemetry Heart rate as high as 120 while standing up or ambulating and went as low as 30s to 40s overnight Will adjust medication as needed Patient on atenolol 50 mg daily Eliquis 5 mg every 12 hours started Heart rate on the day of discharge between 58 while sleeping and 80s (2) Tachycardia: Code(s): R00.0 - Tachycardia, unspecified Status: Acute Assessment and Plan: Refer to Angelita. erica Patient will be referred to a cardiology (3) Nicotine dependence: Code(s): F17.200 - Nicotine dependence, unspecified, uncomplicated Status: Acute Assessment and Plan: Patient refused nicotine Educated on cessation (4) COPD (chronic obstructive pulmonary disease): Code(s): J44.9 - Chronic obstructive pulmonary disease, unspecified Status: Acute Assessment and Plan: Stable Continue budesonide and as needed albuterol (5) Type 2 diabetes mellitus, without long-term current use of insulin: Code(s): E11.9 - Type 2 diabetes mellitus without complications Status: Acute Assessment and Plan: Stable Blood sugar 176 Continue metformin 500 mg p.o. daily (6) Vitamin D deficiency: Code(s): E55.9 - Vitamin D deficiency, unspecified Status: Acute Assessment and Plan: Continue cholecalciferol (7) Hypertension associated with diabetes: Code(s): E11.59 - Type 2 diabetes mellitus with other circulatory complications; I10 - Essential (primary) hypertension Status: Acute Assessment and Plan: Continue spironolactone 50 mg p.o. daily and atenolol 50 mg p.o. daily Will adjust as needed Vital signs as ordered (8) Alcohol use disorder: Status: Acute Assessment and Plan: Patient drinks 2 to 3 glasses of whiskey with coke daily No withdrawal symptoms this day Patient educated on cessation Patient is educated on high risk for bleeding due to anticoagulant and alcohol use DS: Summary Time Spent with Patient Time attestation: Total time spent providing and/or coordinating discharge services:60 Exam Narrative: Exam Narrative: GENERAL: This is a well-nourished, well-developed patient, in no apparent distress. HEAD: normocephalic, atraumatic. EYES: PERRL. Sclera clear/white. Vision is grossly intact. EARS: External ears normal, auditory canals clear and without drainage, TMs normal without perforation. Hearing grossly intact. NOSE: External nose normal with no obvious nasal discharge, nares without redness, no rhinorrhea. THROAT: Mucous membranes moist, posterior pharynx clear. NECK: Neck supple, non-tender without lymphadenopathy, masses or thyromegaly. CARDIOVASCULAR: irregular rate and irregular rhythm RESPIRATORY: Clear to auscultation. Breath sounds equal bilaterally. No wheezes, rales, or rhonchi. GASTROINTESTINAL: Abdomen soft, non-tender, nondistended. Bowel sounds are active. No hepato-splenomegaly, or palpable masses. No guarding. SKIN: warm, intact with no suspicious lesions or rash, good texture and turgor. NEURO: awake, alert, and oriented to person, place and time. There were no obvious focal neurologic abnormalities. Steady gait EXTREMITIES: Normal range of motion. No edema. No calf tenderness. Negative Homans sign bilaterally. BACK: Nontender without deformity or crepitance. No flank tenderness. CONSTITUTIONAL: Denies fever, chills, sweats. EYES: Denies visual changes, redness, discharge. ENT: Denies rhinorrhea, congestion, sore throat, otalgia. CARDI
== END 2020-06-07 11:35 | disposition home or self-care (01) | DRG 310 ==
LOC: CHSED 16:11 → CHS2ND 06-05 07:07
PROVIDERS: Nurse Practitioner; Admitting Provider Emergency Medicine; Emergency Provider Emergency Medicine; PCP Nurse Practitioner Family; Visit Provider Emergency Medicine
DX: I48.4 Atypical atrial flutter (principal); J44.9 Chronic obstructive pulmonary disease, unspecified; E11.9 Type 2 diabetes mellitus without complications; I10 Essential (primary) hypertension; E55.9 Vitamin D deficiency, unspecified; I87.2 Venous insufficiency (chronic) (peripheral); H35.033 Hypertensive retinopathy, bilateral; H35.30 Unspecified macular degeneration; M19.90 Unspecified osteoarthritis, unspecified site; M85.80 Other specified disorders of bone density and structure, unspecified site; Z96.651 Presence of right artificial knee joint; Z98.41 Cataract extraction status, right eye; Z96.1 Presence of intraocular lens; I48.92 Unspecified atrial flutter; F17.210 Nicotine dependence, cigarettes, uncomplicated; Z72.89 Other problems related to lifestyle
CPT/HCPCS: 36415; 71046; 80053; 83735; 83880; 84443; 84484; 85025; 85027; 85380; 86140; 93005; 93306; 94640; 96361; 96374; 96376; 99285; A9270; J3475; J7030

== ENCOUNTER 2020-06-13 10:07 | Outpatient (CLI) | payer MEDICARE, SELFPAY ==
[2020-06-13 10:27] LABS: Basophils Absolute Auto 0.05 K/mm3 (0.00-0.10); Basophils Percent Auto 0.6 % (0.0-1.0); Eosinophils Absolute Auto 0.09 K/mm3 (0.02-0.50); Eosinophils Percent Auto 1.1 % (1.0-6.0); Hematocrit 41.3 % (35.0-42.0); Hemoglobin 13.8 g/dL (11.7-13.8); Immature Granulocyte Absolute 0.03 K/mm3 (0.00-0.00); Immature Granulocyte Percent A 0.4 % (0.0-0.0); Lymphocytes Absolute Auto 2.28 K/mm3 (1.10-4.50); Lymphocytes Percent Auto 27.9 % (18.0-42.0); Mean Corpuscular HGB Conc 33.4 g/dL (32.0-36.0); Mean Corpuscular Hemoglobin 32.6 pg (27.0-31.0); Mean Corpuscular Volume 97.6 fL (78.0-102.0); Mean Platelet Volume 8.4 fl (9.2-11.8); Monocytes Absolute Auto 1.03 K/mm3 (0.10-0.90); Monocytes Percent Auto 12.6 % (2.0-11.0); Neutrophils Absolute Auto 4.7 K/mm3 (1.7-7.2); Neutrophils Percent Auto 57.4 % (50.0-70.0); Platelet Count Result 295 K/mm3 (150-420); Red Blood Count 4.23 M/mm3 (4.20-5.40); Red Cell Distribution Width 13.5 % (11.6-14.4); White Blood Count 8.2 K/mm3 (4.8-10.8)
[2020-06-13 10:37] LABS: Creatinine Urine 48.12 mg/dL (40-278)
[2020-06-13 10:43] LABS: Microalbumin Urine Random < 13.0 mg/L
[2020-06-13 10:47] LABS: Hemoglobin A1C 5.5 % (<5.7)
[2020-06-13 11:08] LABS: Alanine Aminotransferase 22 U/L (14-59); Albumin Level 4.1 g/dL (3.4-5.0); Alkaline Phosphatase 115 U/L (46-116); Anion Gap 9 mmol/L (8-16); Aspartate Amino Transferase 16 U/L (15-37); Bilirubin,Total 0.5 mg/dL (0.00-1.00); Blood Urea Nitrogen 7 mg/dL (7-18); Calcium 9.4 mg/dL (8.5-10.1); Carbon Dioxide 29 mmol/L (21-32); Chloride 98 mmol/L (98-108); Cholesterol 173 mg/dL (0-200); Estimated Glomerular Filt Rate > 60; Glucose 107 mg/dL (70-99); HDL Direct 79 mg/dL (40-60); LDL Cholesterol Calculated 82 mg/dL (<130); Osmolality Calculated 280 mOsm/kg (285-295); Sodium 136 mmol/L (136-145); Total Protein 7.9 g/dL (6.4-8.2); Triglycerides 58 mg/dL (0-150)
--- NOTE | 2020-06-15 15:40 | WPDHOLTEREM ---
Holter/Event Monitor Holter/Event Monitor Date of procedure: 06/13/20 Procedure Type: 48 hour holter monitor Indications: Atrial flutter Conclusion: 1. 48 hour holter monitor on 06/13/20. 2. Underlying rhythm is atrial flutter. HR range 54-124 bpm; average HR 103 bpm. 3. There are no other supraventricular arrrhythmias other than atrial flutter. 4. There are 1,420 premature ventricular complexes, 5 couplets and 3 ventricular trigeminy. No ventricular tachycardia. 5. The longest pause was indicated as 3.1 seconds at 4:04 am, but no strips of it noted. 6. No symptoms available for correlation.
== END 2020-06-13 10:08 | disposition home or self-care (01) ==
PROVIDERS: PCP Nurse Practitioner Family; Visit Provider Internal Medicine Cardiovascular Disease
DX: I48.4 Atypical atrial flutter (principal); E11.59 Type 2 diabetes mellitus with other circulatory complications; I10 Essential (primary) hypertension
CPT/HCPCS: 36415; 80053; 80061; 82043; 83036; 85025; 93225; 93226

== ENCOUNTER 2020-11-13 09:35 | Outpatient (CLI) | payer MEDICARE, SELFPAY ==
--- NOTE | ~2020-11-13 | XR_ITS ---
EXAMINATION: XR knee RT 3V DATE: 11/13/2020 09:56 INDICATION: Right knee pain. TECHNIQUE: 3 views of right knee were obtained. COMPARISON: Right knee radiographs 10/27/2014, 11/27/2018 FINDINGS: There is a total right knee arthroplasty with patellar resurfacing. Tibia demonstrate 6 deg juany valgus angulation and 9 degrees posterior angulation with respect to tibial component, which is stable from 10/27/2014. No fracture. No periprosthetic lucency to suggest loosening or infection. Ther e is diffuse osteopenia. No knee joint effusion. IMPRESSION: 1. Total right knee arthroplasty without change in alignment. Reviewed, dictated and finalized at location A. INSTRUCTOR
== END 2020-11-13 09:36 | disposition home or self-care (01) ==
LOC: CHSIMG 09:38
PROVIDERS: PCP Nurse Practitioner Family; Visit Provider Orthopaedic Surgery
DX: Z96.651 Presence of right artificial knee joint (principal)
CPT/HCPCS: 73562

== ENCOUNTER 2021-02-16 06:24 | Observation (INO) | payer MEDICARE, SELFPAY ==
[2021-02-16] VITALS (15 sets, daily range): BP systolic 131–151; BP diastolic 66–86; PULSE 18–118; RESP 18–98; TEMP 36.2–37.2; O2SAT 92–100; BMI 25.7
--- NOTE | ~2021-02-16 | XR_ITS ---
EXAMINATION: XR chest 1V portable EXAM DATE: 02/16/2021 06:52 INDICATION: Dyspnea and wheezing. TECHNIQUE: Portable AP frontal chest x-ray was obtained. Comparison is made to prior examination from 06/04/2020. FINDINGS: Small amount of bibasilar subsegmental atelectasis or possibly pneumonia. The lungs are oth erwise clear. There are no pleural effusions. The cardiomediastinal silhouette is within normal kohler its. There is no pneumothorax suspected. There is aortic arteriosclerosis. There are mild bony dege nerative changes. IMPRESSION: Small amount of bibasilar atelectasis or less likely pneumonia. Reviewed, dictated and finalized at location A.
--- NOTE | ~2021-02-16 | CT_ITS ---
EXAMINATION: CTA chest PE protocol EXAM DATE: 02/18/2021 03:58 INDICATION: Dyspnea. Eccentric pulse. TECHNIQUE: Spiral CTA of the chest (pulmonary arteries) was performed with 100 cc Omnipaque 350 intr avenous contrast injection. Images were acquired during the pulmonary arterial phase. Coronal maxi mum intensity projection 3D-reconstructions were created by the technologist on dedicated workstation . Axial, coronal and sagittal reformatted images were reviewed. The dose-length product (DLP) for t his examination was 198.81 mGy-cm. The exposure was tailored according to patient size (auto mA exp osure control), and iterative reconstruction (ASIR) was used as additional dose reduction technique. Correlation is made to chest x-ray 02/16/2021. FINDINGS: Pulmonary arteries are well opacified and without intraluminal filling defects. No thora cic aortic dissection. The lungs are clear. There are no pleural or pericardial effusions. Trach eobronchial tree is patent. There is no mediastinal, hilar or axillary lymphadenopathy. There is no pneumothorax. Heart normal in size. There is moderate coronary arterial calcification, arteria l sclerosis. Left adrenal 1.2 cm nodule probably adenoma. There is a left renal fluid density lesion consistent with cyst measuring 4 cm. There is mild thoracic spondylosis without osteoblastic or ost eolytic lesions identified. IMPRESSION: 1. No pulmonary emboli or acute cardiopulmonary findings. Reviewed, dictated and finalized at location A.
--- NOTE | 2021-02-16 06:29 | ED.SOB ---
HPI - SOB/Dyspnea General Chief Complaint: Unspecified <Boris Andrew MD - Last Filed: 02/16/21 07:09> Stated Complaint: shortness of breathe <Boris Andrew MD - Last Filed: 02/16/21 07:09> Time Seen by Provider: 02/16/21 06:30 <Boris Andrew MD - Last Filed: 02/16/21 07:09> Source: patient and family <Boris Andrew MD - Last Filed: 02/16/21 07:09> Mode of arrival: ambulatory <Boris Andrew MD - Last Filed: 02/16/21 07:09> Limitations: no limitations <Boris Andrew MD - Last Filed: 02/16/21 07:09> History of Present Illness HPI Narrative: 75-year-old woman with a history of smoking and COPD comes to the ER today with shortness of breath, cough, and rhinorrhea that started yesterday. She states that cough is nonproductive and she is having no Fever, ankle swelling, sore throat, back pain, or chest pain. She had the COVID vaccine and has had no sick exposures. <Boris Andrew MD - Last Filed: 02/16/21 07:09> MD elicited complaint: shortness of breath and cough <Boris Andrew MD - Last Filed: 02/16/21 07:09> Pertinent past history: COPD <Boris Andrew MD - Last Filed: 02/16/21 07:09> Onset (ago): day(s) (1) <Boris Andrew MD - Last Filed: 02/16/21 07:09> Timing: constant <Boris Andrew MD - Last Filed: 02/16/21 07:09> Severity: moderate <Boris Andrew MD - Last Filed: 02/16/21 07:09> Exacerbating factors: exertion <Boris Andrew MD - Last Filed: 02/16/21 07:09> Relieving factors: rest <Boris Andrew MD - Last Filed: 02/16/21 07:09> Known history of: COPD <Boris Andrew MD - Last Filed: 02/16/21 07:09> Associated symptoms: cough, wheezing and sputum production (clear) <Boris Andrew MD - Last Filed: 02/16/21 07:09> Treatment prior to arrival: none <Boris Andrew MD - Last Filed: 02/16/21 07:09> Related Data Home oxygen amount: none <Boris Andrew MD - Last Filed: 02/16/21 07:09> Home Medications: Home Medications Medication Instructions Recorded Confirmed budesonide 0.5 mg/2 mL suspension 0.5 mg INHALATION BID ml 08/12/19 02/16/21 for nebulization formoterol fumarate 20 mcg/2 mL 20 mcg INHALATION BID ml 08/12/19 02/16/21 solution for nebulization vitamins A,C,T-jqfb-mjowod 14,320 1 cap PO BID 08/12/19 02/16/21 unit-226 mg-200 unit capsule cholecalciferol (vitamin D3) 50 50 mcg PO DAILY 06/04/20 02/16/21 mcg (2,000 unit) capsule <Boris Andrew MD - Last Filed: 02/16/21 07:09> Allergies/Adverse Reactions: Allergies Allergy/AdvReac Type Severity Reaction Status Date / Time JOAQUINA Inhibitors Allergy Intermediate angioedema Verified 11/13/20 10:13 acetaminophen Allergy Intermediate Sleepiness Verified 11/13/20 10:13 [Tylenol-Codeine #3] codeine [Tylenol-Codeine #3] Allergy Intermediate Sleepiness Verified 11/13/20 10:13 hydrochlorothiazide [Dyazide] Allergy Intermediate Hyponatremi Verified 11/13/20 10:13 a lisinopril Allergy Intermediate TONGUE Verified 11/13/20 10:13 SWELLING tramadol Allergy Intermediate nausea Verified 11/13/20 10:13 triamterene [Dyazide] Allergy Intermediate Hyponatremi Verified 11/13/20 10:13 a <Boris Andrew MD - Last Filed: 02/16/21 07:09> Review of Systems Review of Systems: All systems reviewed & are unremarkable except as noted in HPI and below <Boris Andrew MD - Last Filed: 02/16/21 07:09> Constitutional: Constitutional: Denies chills and Denies fever(s) <Boris Andrew MD - Last Filed: 02/16/21 07:09> Eyes: Eyes: Denies change in vision and Denies photophobia <Boris Andrew MD - Last Filed: 02/16/21 07:09> ENT: Reports nasal congestion and Denies sore throat <Boris Andrew MD - Last Filed: 02/16/21 07:09> Cardiovascular: Cardiovascular: Denies chest pain and Denies radiating jaw, neck or arm pain <Kedar
--- NOTE | 2021-02-16 06:34 | ECG_ITS ---
Measurements Intervals Griffin Rate: 80 P: -35 NE: 99 QRS: 256 QRSD: 117 T: -25 QT: 348 QTc: 403 Interpretive Statements SINUS OR ECTOPIC ATRIAL RHYTHM WITH SHORT NE INTERVAL SUPRAVENTRICULAR BIGEMINY RIGHT AXIS DEVIATION RIGHT BUNDLE BRANCH BLOCK BASELINE ARTIFACT- I, II, III, AVR, AVL, AVF, V1-V6 ABNORMAL ECG Electronically Signed On 02-16-2021 18:01:16 CDT by Eriberto Barone D.O.
[2021-02-16 06:57] LABS: Basophils Absolute Auto 0.04 K/mm3 (0.00-0.10); Basophils Percent Auto 0.5 % (0.0-1.0); Eosinophils Absolute Auto 0.03 K/mm3 (0.02-0.50); Eosinophils Percent Auto 0.4 % (1.0-6.0); Hematocrit 42.5 % (35.0-42.0); Hemoglobin 14.8 g/dL (11.7-13.8); Immature Granulocyte Absolute 0.05 K/mm3 (0.00-0.00); Immature Granulocyte Percent A 0.6 % (0.0-0.0); Lymphocytes Absolute Auto 0.87 K/mm3 (1.10-4.50); Lymphocytes Percent Auto 10.7 % (18.0-42.0); Mean Corpuscular HGB Conc 34.8 g/dL (32.0-36.0); Mean Corpuscular Hemoglobin 34.3 pg (27.0-31.0); Mean Corpuscular Volume 98.6 fL (78.0-102.0); Mean Platelet Volume 8.2 fl (9.2-11.8); Monocytes Absolute Auto 0.67 K/mm3 (0.10-0.90); Monocytes Percent Auto 8.2 % (2.0-11.0); Neutrophils Absolute Auto 6.5 K/mm3 (1.7-7.2); Neutrophils Percent Auto 79.6 % (50.0-70.0); Platelet Count Result 270 K/mm3 (150-420); Red Blood Count 4.31 M/mm3 (4.20-5.40); Red Cell Distribution Width 13.4 % (11.6-14.4); White Blood Count 8.1 K/mm3 (4.8-10.8)
[2021-02-16] MEDS: methylPREDNISolone SOD SUCC 40 MG VIAL 80 MG IV PUSH (07:10)
[2021-02-16] MEDS: ALBUTEROL SULFATE (*SP) INHALER 4 PUFF INHALATION (07:11)
[2021-02-16 07:13] LABS: Lactic Acid Reflex 1.5 mmol/L (0.4-2.0)
[2021-02-16 07:15] LABS: SARS-CoV-2 Ag Negative (Negative)
[2021-02-16 07:17] LABS: Alanine Aminotransferase 22 U/L (14-59); Albumin Level 3.6 g/dL (3.4-5.0); Alkaline Phosphatase 155 U/L (46-116); Anion Gap 14 mmol/L (8-16); Aspartate Amino Transferase 16 U/L (15-37); Bilirubin,Total 0.2 mg/dL (0.00-1.00); Blood Urea Nitrogen 5 mg/dL (7-18); Carbon Dioxide 25 mmol/L (21-32); Chloride 94 mmol/L (98-108); Estimated CRCL calculation 58 ml/min; Estimated Glomerular Filt Rate > 60; Glucose 113 mg/dL (70-99); NT Pro B Type Natriuretic Pept 585 pg/mL (0-125); Osmolality Calculated 274 mOsm/kg (285-295); Potassium 4.1 mmol/L (3.5-5.1); Sodium 133 mmol/L (136-145); Total Protein 7.4 g/dL (6.4-8.2); Troponin I 8.3 ng/L (0.00-60.4)
[2021-02-16] MEDS: ALBUTEROL SULFATE NEB 2.5 MG/3 ML INH INHALATION (07:20)
[2021-02-16] MEDS: IPRATROPIUM 0.5 MG/ALBUTEROL SULFATE 2.5 MG AMPUL.NEB 3 ML INHALATION ×3 (07:20→17:59)
--- NOTE | 2021-02-16 07:53 | PC.NURSE ---
PT SPO2 88% ON RA, PT PLACED ON 2 L/NC PER [facility]OR[facility] DR BRADFORD. SPO2 UP TO 93% ON 2L/NC. PT STATES SHE FEELS BETTER, DR BRADFORD SPEAKING WITH PT ABOUT ADMISSION TO HOSPITAL. PT AGREES. FAMIY AT BEDSIDE.
--- NOTE | 2021-02-16 09:11 | PM.IMHP ---
H&P: HPI History of Present Illness Date/Time: 02/16/21 09:11 this is a 75-year-old female presented to emergency department due to shortness of breath. Patient has a past medical history of atypical atrial flutter, COPD, hypertension osteoarthritis, osteopenia, tachycardia, venous stasis ulcer, and vitamin D deficiency. According to patient yesterday her shortness of breath worsened patient notes that she took an inhaler and nebulizer treatment at home with no improvement. Patient notes this morning her breathing worsened she was unable to give herself a breathing treatment. Patient WBCs 8.1, hemoglobin 14.8, hematocrit 42.5, platelets 270, sodium 133, potassium 4.1, BUN 5, creatinine 0.5, liver function within normal limit, troponin 8.3, BUN 585, chest x-ray indicate possible pneumonia. While in the ED patient received Rocephin, azithromycin, Solu-Medrol, duo nebulizer, patient condition has improved . Patient did note that she has a chronic productive cough due to her COPD which is unchanged. Patient notes that the color of her sputum sputum is clear. Patient being admitted for COPD exacerbation and pneumonia Observation Time spent 60 minutes Chief complaint shortness of breath Disposition: Discharge home possibly tomorrow Chief Complaint: Shortness of breath Review of Systems Review of Systems: Narrative: A 14 organ system Review of Systems was performed and pertinent positives included in the HPI, otherwise remaining ROS is negative. [facility] Past Medical History Medical History (Updated 02/16/21 @ 09:22 by ELYSE IsaacsC) Atypical atrial flutter COPD (chronic obstructive pulmonary disease) Hearing loss Hypertension associated with diabetes Hypertensive retinopathy of both eyes Left wrist pain Macular degeneration Nicotine dependence Osteoarthritis Osteopenia Overweight Pseudophakia Tachycardia Type 2 diabetes mellitus, without long-term current use of insulin Venous stasis ulcer Vitamin D deficiency Surgical History Surgical History History of appendectomy History of cataract removal with insertion of prosthetic lens Right eye only History of cholecystectomy History of right knee joint replacement (~2014) Family History Family History (Updated 11/13/20 @ 14:51 by Taylor Ferreira, RT(R)) Father Hypertension Mother Hypertension Ovarian cancer Other Arthritis Diabetes mellitus Social History Social History Smoking packs per day: 1 Smoking cigarettes per day: 20.0 Years smoked: 60 Smoking pack-years: 60.00 Smoking status: Current every day smoker Tobacco type: cigarettes Second hand tobacco smoke exposure: No Alcohol intake: current Drinks per week: 3 Substance use: never Substance use type: does not use 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 Gender identity (if verbalized by the patient): Female Spiritual care concerns: No Meds Home Medications and Allergies Home Medications Medication Instructions Recorded Confirmed Type budesonide 0.5 mg/2 mL suspension 0.5 mg INHALATION BID ml 08/12/19 02/16/21 History for nebulization formoterol fumarate 20 mcg/2 mL 20 mcg INHALATION BID ml 08/12/19 02/16/21 History solution for nebulization vitamins A,C,Z-jbsd-jkqymq 14,320 1 cap PO BID 08/12/19 02/16/21 History unit-226 mg-200 unit capsule cholecalciferol (vitamin D3) 50 50 mcg PO DAILY 06/04/20 02/16/21 History mcg (2,000 unit) capsule diltiazem HCl 240 mg 240 mg PO DAILY #90 cap 07/09/20 02/16/21 Rx capsule,extended release 24 hr, controlled atenolol 50 mg tablet See Rx Instructions .ROUTE 10/26/20 02/16/21 Rx .COMPLEX #90 tablet metformin 500 mg tablet See Rx Instructions .ROUTE 11/02/20 02/16/21 Rx .COMPLEX #90 tablet spironolactone 50 mg tablet See Rx Instructions .ROUTE 11/02/20 02/16/21 Rx .CO
--- NOTE | 2021-02-16 10:55 | PC.NURSE ---
Pt admitted to 226 from the ER. DX: Pneumonia , COPD exacerbation. O2 @ 2L/ NC. Pt is alert and oreintated. All personal belongings kept with pt.
[2021-02-16] MEDS: methylPREDNISolone SOD SUCC 40 MG VIAL IV PUSH ×2 (11:58→17:59)
[2021-02-16 12:07] LABS: Glucose Point of Care 235 mg/dl (65-105)
[2021-02-16 17:07] LABS: Glucose Point of Care 197 mg/dl (65-105)
[2021-02-16] MEDS: APIXABAN 2.5 MG TABLET 5 MG BY MOUTH (17:59)
[2021-02-16] MEDS: OPTI-GEN TAB 1 TABLET PO (17:59)
[2021-02-16] MEDS: BUDESONIDE RESPULE NEB 0.5 MG/2 ML AMP INHALATION (18:00)
[2021-02-16] MEDS: guaiFENesin 12 HR 600 MG TABCR 1200 MG PO (20:46)
[2021-02-16 20:52] LABS: Glucose Point of Care 198 mg/dl (65-105)
--- NOTE | 2021-02-16 22:57 | PC.NURSE ---
PT RESTING IN BED, REPORT TO ALICE LOMELI. CALL DANIEL IN REACH. OXYGEN REMAINS ON.
[2021-02-17] VITALS (15 sets, daily range): BP systolic 103–151; BP diastolic 62–86; PULSE 80–123; RESP 16–20; TEMP 36.6–37.1; O2SAT 94–99
[2021-02-17] MEDS: methylPREDNISolone SOD SUCC 40 MG VIAL IV PUSH ×5 (00:37→23:37)
[2021-02-17] MEDS: IPRATROPIUM 0.5 MG/ALBUTEROL SULFATE 2.5 MG AMPUL.NEB 3 ML INHALATION ×3 (00:37→18:06)
[2021-02-17] MEDS: BUDESONIDE RESPULE NEB 0.5 MG/2 ML AMP INHALATION ×2 (06:34→18:05)
[2021-02-17 07:16] LABS: Hemoglobin 13.9 g/dL (11.7-13.8); Immature Granulocyte Absolute 0.02 K/mm3 (0.00-0.00); Immature Granulocyte Percent A 0.4 % (0.0-0.0); Lymphocytes Percent Auto 16.8 % (18.0-42.0); Mean Corpuscular HGB Conc 33.9 g/dL (32.0-36.0); Mean Corpuscular Hemoglobin 33.5 pg (27.0-31.0); Mean Corpuscular Volume 98.8 fL (78.0-102.0); Mean Platelet Volume 8.5 fl (9.2-11.8); Monocytes Absolute Auto 0.26 K/mm3 (0.10-0.90); Monocytes Percent Auto 4.9 % (2.0-11.0); Neutrophils Absolute Auto 4.2 K/mm3 (1.7-7.2); Neutrophils Percent Auto 77.9 % (50.0-70.0); Platelet Count Result 272 K/mm3 (150-420); Red Blood Count 4.15 M/mm3 (4.20-5.40); Red Cell Distribution Width 13.3 % (11.6-14.4); White Blood Count 5.4 K/mm3 (4.8-10.8)
[2021-02-17 07:39] LABS: Glucose Point of Care 206 mg/dl (65-105)
[2021-02-17 07:41] LABS: Alanine Aminotransferase 18 U/L (14-59); Albumin Level 3.5 g/dL (3.4-5.0); Alkaline Phosphatase 144 U/L (46-116); Anion Gap 7 mmol/L (8-16); Aspartate Amino Transferase 18 U/L (15-37); Bilirubin,Total 0.2 mg/dL (0.00-1.00); Blood Urea Nitrogen 6 mg/dL (7-18); Calcium 9.6 mg/dL (8.5-10.1); Carbon Dioxide 31 mmol/L (21-32); Chloride 93 mmol/L (98-108); Estimated CRCL calculation 56 ml/min; Estimated Glomerular Filt Rate > 60; Glucose 207 mg/dL (70-99); Magnesium 1.8 mg/dL (1.8-2.4); Osmolality Calculated 275 mOsm/kg (285-295); Potassium 3.9 mmol/L (3.5-5.1); Sodium 131 mmol/L (136-145); Total Protein 7.1 g/dL (6.4-8.2)
[2021-02-17 07:44] LABS: NT Pro B Type Natriuretic Pept 1352 pg/mL (0-125)
[2021-02-17] MEDS: guaiFENesin 12 HR 600 MG TABCR 1200 MG PO ×2 (09:36→21:09)
[2021-02-17] MEDS: CHOLECALCIFEROL 1,000 UNITS TABLET 2000 UNITS PO (09:36)
[2021-02-17] MEDS: metFORMIN HCL 500 MG TABLET PO (09:36)
[2021-02-17] MEDS: OPTI-GEN TAB 1 TABLET PO ×2 (09:36→16:33)
[2021-02-17] MEDS: APIXABAN 2.5 MG TABLET 5 MG BY MOUTH ×2 (09:37→16:34)
[2021-02-17] MEDS: SPIRONOLACTONE 25 MG TABLET 50 MG PO (09:37)
[2021-02-17] MEDS: atenoloL 50 MG TABLET BY MOUTH (09:37)
[2021-02-17] MEDS: SODIUM CHLORIDE 1 GM TABLET PO ×2 (10:14→16:34)
--- NOTE | 2021-02-17 11:11 | PC.NURSE ---
Pt has been off O2 for 2 hours. Pulse ox on RA is 97%.
[2021-02-17 11:36] LABS: Glucose Point of Care 203 mg/dl (65-105)
--- NOTE | 2021-02-17 12:20 | P.PN_ITS ---
Progress Note: A&P Assessment and Plan (1) Pneumonia: Qualifiers: Laterality: right Lung location: lower lobe of lung Pneumonia type: due to unspecified organism Qualified Code(s): J18.9 - Pneumonia, unspecified organism Code(s): J18.9 - Pneumonia, unspecified organism Status: Acute Assessment and Plan: * Chest x-ray indicates possible pneumonia * Continue Rocephin daily Solu-Medrol, duo nebulizer, and supplementary oxygen and guaifenesin. We will add Bactrim as request * Blood culture pending * Patient afebrile with WBCs within normal limits we will continue to monitor (2) COPD (chronic obstructive pulmonary disease): Qualifiers: COPD type: COPD with acute exacerbation Qualified Code(s): J44.1 - Chronic obstructive pulmonary disease with (acute) exacerbation Code(s): J44.9 - Chronic obstructive pulmonary disease, unspecified Status: Acute Assessment and Plan: * Worsened by pneumonia * Continue Solu-Medrol, Rocephin, supplementary oxygen, and duo nebulizers * Continue oxygen as ordered (3) Atypical atrial flutter: Code(s): I48.4 - Atypical atrial flutter Status: Acute Assessment and Plan: * Controlled * Continue Eliquis, atenolol, and Cardizem (4) Nicotine dependence: Qualifiers: Nicotine product type: cigarettes Substance use status: uncomplicated Qualified Code(s): F17.210 - Nicotine dependence, cigarettes, uncomplicated Code(s): F17.200 - Nicotine dependence, unspecified, uncomplicated Status: Acute Assessment and Plan: * Will start nicotine patch (5) Vitamin D deficiency: Code(s): E55.9 - Vitamin D deficiency, unspecified Status: Acute Assessment and Plan: * Continue home medication (6) Osteoarthritis: Qualifiers: Osteoarthritis location: unspecified site Osteoarthritis type: primary Qualified Code(s): M19.91 - Primary osteoarthritis, unspecified site Code(s): M19.90 - Unspecified osteoarthritis, unspecified site Status: Acute Assessment and Plan: * Continue home medication (7) Type 2 diabetes mellitus, without long-term current use of insulin: Code(s): E11.9 - Type 2 diabetes mellitus without complications Status: Acute Assessment and Plan: * Controlled slightly elevated due to use of steroids * Continue Metformin with hypoglycemic protocol, sliding scale and Accu-Cheks * Will adjust medication as needed (8) Osteopenia: Qualifiers: Osteopenia location: unspecified Qualified Code(s): M85.80 - Other specified disorders of bone density and structure, unspecified site Code(s): M85.80 - Other specified disorders of bone density and structure, unspecified site Status: Acute Assessment and Plan: * Continue home medication (9) Hypertension associated with diabetes: Code(s): E11.59 - Type 2 diabetes mellitus with other circulatory complications; I10 - Essential (primary) hypertension Status: Acute Assessment and Plan: * Control * Continue atenolol and spironolactone * Vital signs as ordered * Will adjust medication as needed (10) Sinus tachycardia: Code(s): R00.0 - Tachycardia, unspecified Status: Acute Assessment and Plan: * Heart rates as high as 120 * According to patient this is her baseline, she notes that when she take your breathing treatment it goes even higher * We will continue to monitor Review of Systems Review of Systems: Narrative: A 14 organ system Review o
--- NOTE | 2021-02-17 12:20 | WPDPN ---
Progress Note: A&P Assessment and Plan (1) Pneumonia: Qualifiers: Laterality: right Lung location: lower lobe of lung Pneumonia type: due to unspecified organism Qualified Code(s): J18.9 - Pneumonia, unspecified organism Code(s): J18.9 - Pneumonia, unspecified organism Status: Acute Assessment and Plan: Chest x-ray indicates possible pneumonia Continue Rocephin daily Solu-Medrol, duo nebulizer, and supplementary oxygen and guaifenesin. We will add Bactrim as request Blood culture pending Patient afebrile with WBCs within normal limits we will continue to monitor (2) COPD (chronic obstructive pulmonary disease): Qualifiers: COPD type: COPD with acute exacerbation Qualified Code(s): J44.1 - Chronic obstructive pulmonary disease with (acute) exacerbation Code(s): J44.9 - Chronic obstructive pulmonary disease, unspecified Status: Acute Assessment and Plan: Worsened by pneumonia Continue Solu-Medrol, Rocephin, supplementary oxygen, and duo nebulizers Continue oxygen as ordered (3) Atypical atrial flutter: Code(s): I48.4 - Atypical atrial flutter Status: Acute Assessment and Plan: Controlled Continue Eliquis, atenolol, and Cardizem (4) Nicotine dependence: Qualifiers: Nicotine product type: cigarettes Substance use status: uncomplicated Qualified Code(s): F17.210 - Nicotine dependence, cigarettes, uncomplicated Code(s): F17.200 - Nicotine dependence, unspecified, uncomplicated Status: Acute Assessment and Plan: Will start nicotine patch (5) Vitamin D deficiency: Code(s): E55.9 - Vitamin D deficiency, unspecified Status: Acute Assessment and Plan: Continue home medication (6) Osteoarthritis: Qualifiers: Osteoarthritis location: unspecified site Osteoarthritis type: primary Qualified Code(s): M19.91 - Primary osteoarthritis, unspecified site Code(s): M19.90 - Unspecified osteoarthritis, unspecified site Status: Acute Assessment and Plan: Continue home medication (7) Type 2 diabetes mellitus, without long-term current use of insulin: Code(s): E11.9 - Type 2 diabetes mellitus without complications Status: Acute Assessment and Plan: Controlled slightly elevated due to use of steroids Continue Metformin with hypoglycemic protocol, sliding scale and Accu-Cheks Will adjust medication as needed (8) Osteopenia: Qualifiers: Osteopenia location: unspecified Qualified Code(s): M85.80 - Other specified disorders of bone density and structure, unspecified site Code(s): M85.80 - Other specified disorders of bone density and structure, unspecified site Status: Acute Assessment and Plan: Continue home medication (9) Hypertension associated with diabetes: Code(s): E11.59 - Type 2 diabetes mellitus with other circulatory complications; I10 - Essential (primary) hypertension Status: Acute Assessment and Plan: Control Continue atenolol and spironolactone Vital signs as ordered Will adjust medication as needed (10) Sinus tachycardia: Code(s): R00.0 - Tachycardia, unspecified Status: Acute Assessment and Plan: Heart rates as high as 120 According to patient this is her baseline, she notes that when she take your breathing treatment it goes even higher We will continue to monitor Review of Systems Review of Systems: Narrative: A 14 organ system Review of Systems was performed and pertinent positives included in the HPI, otherwise remaining ROS is negative. Exam Narrative: Exam Narrative: GENERAL: This is a well-nourished, well-developed patient, in no apparent distress. HEAD: normocephalic, atraumatic. EYES: PERRL. Sclera clear/white. Vision is grossly intact. EARS: External ears normal, auditory canals clear and without drainage, TMs normal without perforatio
[2021-02-17] MEDS: atenoloL 25 MG TABLET PO (14:30)
[2021-02-17 16:45] LABS: Glucose Point of Care 122 mg/dl (65-105)
[2021-02-17 21:29] LABS: Glucose Point of Care 178 mg/dl (65-105)
--- NOTE | 2021-02-17 22:50 | PC.NURSE ---
report to arabella bonilla.
--- NOTE | 2021-02-17 23:51 | PC.NURSE ---
Pt given solumedrol 40 mg IVP as ordered.
[2021-02-18] VITALS (9 sets, daily range): BP systolic 131–140; BP diastolic 66–84; PULSE 69–133; RESP 20; TEMP 35.9–36.6; O2SAT 90–99
--- NOTE | 2021-02-18 03:16 | PC.NURSE ---
Dr. Salamanca notified of pt's heart rate of 135; New orders received and noted.
--- NOTE | 2021-02-18 03:23 | PC.NURSE ---
0315 physician notified 0g HR up to 136 then back down to 91 the back up to 135, back down to 90. Pt denies discomfort.
--- NOTE | 2021-02-18 03:30 | PC.NURSE ---
Pt taken to x-ray by wheelchair for CT scan
[2021-02-18 05:05] LABS: Hematocrit 41.8 % (35.0-42.0); Hemoglobin 13.9 g/dL (11.7-13.8); Mean Corpuscular HGB Conc 33.3 g/dL (32.0-36.0); Mean Corpuscular Hemoglobin 32.9 pg (27.0-31.0); Mean Corpuscular Volume 99.1 fL (78.0-102.0); Mean Platelet Volume 8.8 fl (9.2-11.8); Platelet Count Result 283 K/mm3 (150-420); Red Blood Count 4.22 M/mm3 (4.20-5.40); Red Cell Distribution Width 13.3 % (11.6-14.4); White Blood Count 10.3 K/mm3 (4.8-10.8)
[2021-02-18 05:32] LABS: Alanine Aminotransferase 18 U/L (14-59); Albumin Level 3.4 g/dL (3.4-5.0); Alkaline Phosphatase 126 U/L (46-116); Anion Gap 7 mmol/L (8-16); Aspartate Amino Transferase 14 U/L (15-37); Bilirubin,Total 0.3 mg/dL (0.00-1.00); Blood Urea Nitrogen 12 mg/dL (7-18); Calcium 9.4 mg/dL (8.5-10.1); Carbon Dioxide 29 mmol/L (21-32); Chloride 95 mmol/L (98-108); Estimated CRCL calculation 54 ml/min; Estimated Glomerular Filt Rate > 60; Glucose 184 mg/dL (70-99); Osmolality Calculated 276 mOsm/kg (285-295); Potassium 3.7 mmol/L (3.5-5.1); Sodium 131 mmol/L (136-145); Total Protein 6.8 g/dL (6.4-8.2)
[2021-02-18 05:33] LABS: Free T4 Free Thyroxine 0.94 ng/dL (0.76-1.46); Thyroid Stimulating Hormone 0.81 uIU/mL (0.36-3.74)
[2021-02-18] MEDS: BUDESONIDE RESPULE NEB 0.5 MG/2 ML AMP INHALATION (05:33)
[2021-02-18] MEDS: IPRATROPIUM 0.5 MG/ALBUTEROL SULFATE 2.5 MG AMPUL.NEB 3 ML INHALATION (05:34)
[2021-02-18] MEDS: methylPREDNISolone SOD SUCC 40 MG VIAL IV PUSH (06:00)
--- NOTE | 2021-02-18 06:00 | PC.NURSE ---
Pt given solumedrol 40 mg IVP as ordered.
--- NOTE | 2021-02-18 06:15 | PC.NURSE ---
Stool sample #2 obtained & sent to lab.
--- NOTE | 2021-02-18 06:21 | ECG_ITS ---
Measurements Intervals [place] Rate: 97 P: 230 TN: 182 QRS: -78 QRSD: 147 T: -32 QT: 371 QTc: 473 Interpretive Statements ATRIAL FLUTTER/TACHYCARDIA RIGHT BUNDLE BRANCH BLOCK LEFT ANTERIOR FASCICULAR BLOCK BASELINE ARTIFACT- I, III, AVR, AVL, AVF, V1, V3-V6 ABNORMAL ECG Electronically Signed On 02-18-2021 12:06:22 CDT by Eriberto Barone D.O.
[2021-02-18] MEDS: APIXABAN 2.5 MG TABLET 5 MG BY MOUTH (08:25)
[2021-02-18] MEDS: OPTI-GEN TAB 1 TABLET PO (08:25)
[2021-02-18] MEDS: metFORMIN HCL 500 MG TABLET PO (08:25)
[2021-02-18] MEDS: CHOLECALCIFEROL 1,000 UNITS TABLET 2000 UNITS PO (08:25)
[2021-02-18] MEDS: SODIUM CHLORIDE 1 GM TABLET PO (08:25)
[2021-02-18] MEDS: SPIRONOLACTONE 25 MG TABLET 50 MG PO (08:26)
[2021-02-18] MEDS: guaiFENesin 12 HR 600 MG TABCR 1200 MG PO (08:26)
[2021-02-18] MEDS: atenoloL 25 MG TABLET 75 MG BY MOUTH (08:26)
--- NOTE | 2021-02-18 11:05 | P.DS_ITS ---
DS: Admitting Diagnosis Admitting Diagnosis Admitting Diagnosis: COPD, pneumonia DS: Discharge Diagnosis Discharge Diagnosis (1) Pneumonia: Qualifiers: Laterality: right Lung location: lower lobe of lung Pneumonia type: due to unspecified organism Qualified Code(s): J18.9 - Pneumonia, unspecified organism Code(s): J18.9 - Pneumonia, unspecified organism Status: Acute Assessment and Plan: * Chest x-ray indicates possible pneumonia * Continue Rocephin daily Solu-Medrol, duo nebulizer, and supplementary oxygen and guaifenesin. We will add Bactrim as request * Blood culture preliminary no growth * Patient afebrile with WBCs within normal limits we will continue to monitor * Patient will discharge home with Bactrim and cefdinir x7 days (2) COPD (chronic obstructive pulmonary disease): Qualifiers: COPD type: COPD with acute exacerbation Qualified Code(s): J44.1 - Chronic obstructive pulmonary disease with (acute) exacerbation Code(s): J44.9 - Chronic obstructive pulmonary disease, unspecified Status: Acute Assessment and Plan: * Worsened by pneumonia * Continue Solu-Medrol, Rocephin, supplementary oxygen, and duo nebulizers * Continue oxygen as ordered (3) Atypical atrial flutter: Code(s): I48.4 - Atypical atrial flutter Status: Acute Assessment and Plan: * Controlled * Continue Eliquis, atenolol, and Cardizem * Spoke with patient's clinical trials manager Dr. Barone. Patient will need to follow-up within 1 week (4) Nicotine dependence: Qualifiers: Nicotine product type: cigarettes Substance use status: uncomplicated Qualified Code(s): F17.210 - Nicotine dependence, cigarettes, uncomplicated Code(s): F17.200 - Nicotine dependence, unspecified, uncomplicated Status: Acute Assessment and Plan: * Will start nicotine patch (5) Vitamin D deficiency: Code(s): E55.9 - Vitamin D deficiency, unspecified Status: Acute Assessment and Plan: * Continue home medication (6) Osteoarthritis: Qualifiers: Osteoarthritis location: unspecified site Osteoarthritis type: primary Qualified Code(s): M19.91 - Primary osteoarthritis, unspecified site Code(s): M19.90 - Unspecified osteoarthritis, unspecified site Status: Acute Assessment and Plan: * Continue home medication (7) Type 2 diabetes mellitus, without long-term current use of insulin: Code(s): E11.9 - Type 2 diabetes mellitus without complications Status: Acute Assessment and Plan: * Controlled slightly elevated due to use of steroids * Continue Metformin with hypoglycemic protocol, sliding scale and Accu-Cheks * Will adjust medication as needed (8) Osteopenia: Qualifiers: Osteopenia location: unspecified Qualified Code(s): M85.80 - Other specified disorders of bone density and structure, unspecified site Code(s): M85.80 - Other specified disorders of bone density and structure, unspecified site Status: Acute Assessment and Plan: * Continue home medication (9) Hypertension associated with diabetes: Code(s): E11.59 - Type 2 diabetes mellitus with other circulatory complications; I10 - Essential (primary) hypertension Status: Acute Assessment and Plan: * Control * Continue atenolol and spironolactone * Vital signs as ordered * Will adjust medication as needed (10) Sinus tachycardia: Code(s): R00.0 - Tachycardia, unspecified Status: Acute Assessment and Plan: * Sherlyn
--- NOTE | 2021-02-18 11:05 | PM.DS ---
DS: Admitting Diagnosis Admitting Diagnosis Admitting Diagnosis: COPD, pneumonia DS: Discharge Diagnosis Discharge Diagnosis (1) Pneumonia: Qualifiers: Laterality: right Lung location: lower lobe of lung Pneumonia type: due to unspecified organism Qualified Code(s): J18.9 - Pneumonia, unspecified organism Code(s): J18.9 - Pneumonia, unspecified organism Status: Acute Assessment and Plan: Chest x-ray indicates possible pneumonia Continue Rocephin daily Solu-Medrol, duo nebulizer, and supplementary oxygen and guaifenesin. We will add Bactrim as request Blood culture preliminary no growth Patient afebrile with WBCs within normal limits we will continue to monitor Patient will discharge home with Bactrim and cefdinir x7 days (2) COPD (chronic obstructive pulmonary disease): Qualifiers: COPD type: COPD with acute exacerbation Qualified Code(s): J44.1 - Chronic obstructive pulmonary disease with (acute) exacerbation Code(s): J44.9 - Chronic obstructive pulmonary disease, unspecified Status: Acute Assessment and Plan: Worsened by pneumonia Continue Solu-Medrol, Rocephin, supplementary oxygen, and duo nebulizers Continue oxygen as ordered (3) Atypical atrial flutter: Code(s): I48.4 - Atypical atrial flutter Status: Acute Assessment and Plan: Controlled Continue Eliquis, atenolol, and Cardizem Spoke with patient's stock mixer Dr. Barone. Patient will need to follow-up within 1 week (4) Nicotine dependence: Qualifiers: Nicotine product type: cigarettes Substance use status: uncomplicated Qualified Code(s): F17.210 - Nicotine dependence, cigarettes, uncomplicated Code(s): F17.200 - Nicotine dependence, unspecified, uncomplicated Status: Acute Assessment and Plan: Will start nicotine patch (5) Vitamin D deficiency: Code(s): E55.9 - Vitamin D deficiency, unspecified Status: Acute Assessment and Plan: Continue home medication (6) Osteoarthritis: Qualifiers: Osteoarthritis location: unspecified site Osteoarthritis type: primary Qualified Code(s): M19.91 - Primary osteoarthritis, unspecified site Code(s): M19.90 - Unspecified osteoarthritis, unspecified site Status: Acute Assessment and Plan: Continue home medication (7) Type 2 diabetes mellitus, without long-term current use of insulin: Code(s): E11.9 - Type 2 diabetes mellitus without complications Status: Acute Assessment and Plan: Controlled slightly elevated due to use of steroids Continue Metformin with hypoglycemic protocol, sliding scale and Accu-Cheks Will adjust medication as needed (8) Osteopenia: Qualifiers: Osteopenia location: unspecified Qualified Code(s): M85.80 - Other specified disorders of bone density and structure, unspecified site Code(s): M85.80 - Other specified disorders of bone density and structure, unspecified site Status: Acute Assessment and Plan: Continue home medication (9) Hypertension associated with diabetes: Code(s): E11.59 - Type 2 diabetes mellitus with other circulatory complications; I10 - Essential (primary) hypertension Status: Acute Assessment and Plan: Control Continue atenolol and spironolactone Vital signs as ordered Will adjust medication as needed (10) Sinus tachycardia: Code(s): R00.0 - Tachycardia, unspecified Status: Acute Assessment and Plan: Heart rates as high as 120 better controlled today According to patient this is her baseline, she notes that when she take your breathing treatment it goes even higher We will continue to monitor Follow-up with the stock mixer DS: Summary Hospital Course Reason for hospitalization: this is a 75-year-old female presented to emergency department due to shortness of breath. Patient has a past medical history
[2021-02-18 11:43] LABS: Glucose Point of Care 203 mg/dl (65-105)
--- NOTE | 2021-02-20 10:09 | PC.NURSE ---
Pt states she received and understood her discharge instructions. Pt also states her care was great.
--- NOTE | 2021-02-28 17:12 | ED.GENADULT ---
HPI - General Adult General Chief complaint: Unspecified Stated complaint: shortness of breathe Time Seen by Provider: 02/16/21 06:30 Source: patient and family Mode of arrival: ambulatory Limitations: no limitations Related Data Home Medications Medication Instructions Recorded Confirmed budesonide 0.5 mg/2 mL suspension 0.5 mg INHALATION BID ml 08/12/19 02/16/21 for nebulization formoterol fumarate 20 mcg/2 mL 20 mcg INHALATION BID ml 08/12/19 02/16/21 solution for nebulization vitamins A,C,K-uzyd-hyityn 14,320 1 cap PO BID 08/12/19 02/16/21 unit-226 mg-200 unit capsule cholecalciferol (vitamin D3) 50 50 mcg PO DAILY 06/04/20 02/16/21 mcg (2,000 unit) capsule Allergies Allergy/AdvReac Type Severity Reaction Status Date / Time JOAQUINA Inhibitors Allergy Intermediate angioedema Verified 02/21/21 10:24 acetaminophen Allergy Intermediate Sleepiness Verified 02/21/21 10:24 [Tylenol-Codeine #3] codeine [Tylenol-Codeine #3] Allergy Intermediate Sleepiness Verified 02/21/21 10:24 hydrochlorothiazide [Dyazide] Allergy Intermediate Hyponatremi Verified 02/21/21 10:24 a lisinopril Allergy Intermediate TONGUE Verified 02/21/21 10:24 SWELLING tramadol Allergy Intermediate nausea Verified 02/21/21 10:24 triamterene [Dyazide] Allergy Intermediate Hyponatremi Verified 02/21/21 10:24 a [facility] Past Medical History Medical History Atypical atrial flutter COPD (chronic obstructive pulmonary disease) Hearing loss Hypertension associated with diabetes Hypertensive retinopathy of both eyes Left wrist pain Macular degeneration Nicotine dependence Osteoarthritis Osteopenia Overweight Pseudophakia Tachycardia Type 2 diabetes mellitus, without long-term current use of insulin Venous stasis ulcer Vitamin D deficiency Surgical History Surgical History History of appendectomy History of cataract removal with insertion of prosthetic lens Right eye only History of cholecystectomy History of right knee joint replacement (~2014) Family History Family History Father Hypertension Mother Hypertension Ovarian cancer Other Arthritis Diabetes mellitus Social History Social History Smoking packs per day: 1 Smoking cigarettes per day: 20.0 Years smoked: 40 Smoking pack-years: 40.00 Smoking status: Current every day smoker Tobacco type: cigarettes Second hand tobacco smoke exposure: No Alcohol intake: current Drinks per week: 2 Substance use: never Substance use type: does not use 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 Gender identity (if verbalized by the patient): Female Spiritual care concerns: No Course Vital Signs Vital signs: Vital Signs Temperature 37.1 C 02/16/21 06:26 Pulse Rate 100 02/16/21 06:26 Respiratory Rate 22 H 02/16/21 06:26 Blood Pressure 151/80 H 02/16/21 06:26 Pulse Oximetry 93 02/16/21 06:26 Temperature 36.3 C L 02/18/21 07:42 Pulse Rate 94 02/18/21 08:26 Respiratory Rate 20 02/18/21 07:42 Blood Pressure 140/66 02/18/21 07:42 Pulse Oximetry 96 02/18/21 07:42 Medical Decision Making Vital Signs Vital Signs: Vital Signs Temperature 37.1 C 02/16/21 06:26 Pulse Rate 100 02/16/21 06:26 Respiratory Rate 22 H 02/16/21 06:26 Blood Pressure 151/80 H 02/16/21 06:26 Pulse Oximetry 93 02/16/21 06:26 Temperature 36.3 C L 02/18/21 07:42 Pulse Rate 94 02/18/21 08:26 Respiratory Rate 20 02/18/21 07:42 Blood Pressure 140/66 02/18/21 07:42 Pulse Oximetry 96 02/18/21 07:42 Lab Data Result diagrams: 02/18/21 04:42 02/18/21 04:42 Labs: Lab Results 02/16/21 02/16/21 02/16/21 Range/Units 06:50 06:50 06:50
== END 2021-02-18 11:30 | disposition home or self-care (01) ==
LOC: CHSED 07:56 → CHS2ND 09:16
PROVIDERS: Emergency Medicine; Admitting Provider Emergency Medicine; Emergency Provider Emergency Medicine; PCP Nurse Practitioner Family; Visit Provider Nurse Practitioner
DX: J44.1 Chronic obstructive pulmonary disease with (acute) exacerbation (principal); J44.0 Chronic obstructive pulmonary disease with (acute) lower respiratory infection; J18.9 Pneumonia, unspecified organism; I48.4 Atypical atrial flutter; I83.009 Varicose veins of unspecified lower extremity with ulcer of unspecified site; L97.909 Non-pressure chronic ulcer of unspecified part of unspecified lower leg with unspecified severity; E11.9 Type 2 diabetes mellitus without complications; E55.9 Vitamin D deficiency, unspecified; E66.3 Overweight; H35.033 Hypertensive retinopathy, bilateral; H35.30 Unspecified macular degeneration; M85.80 Other specified disorders of bone density and structure, unspecified site; M19.90 Unspecified osteoarthritis, unspecified site; R00.0 Tachycardia, unspecified; F17.200 Nicotine dependence, unspecified, uncomplicated; Z20.822 Contact with and (suspected) exposure to COVID-19; Z79.4 Long term (current) use of insulin; Z96.651 Presence of right artificial knee joint; Z90.49 Acquired absence of other specified parts of digestive tract; Z98.41 Cataract extraction status, right eye; Z96.1 Presence of intraocular lens
CPT/HCPCS: 36415; 71045; 71275; 80053; 82948; 83605; 83735; 83880; 84439; 84443; 84484; 85025; 85027; 87040; 87426; 93005; 94640; 96365; 96366; 96367; 96375; 96376; 99285; A9270; C9803; G0378; J0456; J0696; J1815; J2920; Q9967

== ENCOUNTER 2021-02-21 09:39 | Outpatient (CLI) | payer MEDICARE, SELFPAY ==
[2021-02-21 10:39] LABS: Alanine Aminotransferase 26 U/L (14-59); Albumin Level 3.6 g/dL (3.4-5.0); Alkaline Phosphatase 110 U/L (46-116); Anion Gap 13 mmol/L (8-16); Aspartate Amino Transferase 14 U/L (15-37); Bilirubin,Total 0.4 mg/dL (0.00-1.00); Blood Urea Nitrogen 14 mg/dL (7-18); Calcium 9.7 mg/dL (8.5-10.1); Carbon Dioxide 24 mmol/L (21-32); Chloride 91 mmol/L (98-108); Estimated Glomerular Filt Rate > 60; Glucose 146 mg/dL (70-99); Osmolality Calculated 269 mOsm/kg (285-295); Potassium 4.9 mmol/L (3.5-5.1); Sodium 128 mmol/L (136-145); Total Protein 6.8 g/dL (6.4-8.2)
== END 2021-02-21 09:40 | disposition home or self-care (01) ==
LOC: CHSLAB 09:42
PROVIDERS: PCP Nurse Practitioner Family; Visit Provider Nurse Practitioner
DX: E87.1 Hypo-osmolality and hyponatremia (principal)
CPT/HCPCS: 36415; 80053

== ENCOUNTER 2021-07-16 13:44 | Outpatient (CLI) | payer MEDICARE, SELFPAY ==
[2021-07-16 13:56] LABS: Basophils Absolute Auto 0.07 K/mm3 (0.00-0.10); Basophils Percent Auto 0.9 % (0.0-1.0); Eosinophils Absolute Auto 0.17 K/mm3 (0.02-0.50); Eosinophils Percent Auto 2.2 % (1.0-6.0); Hematocrit 46.7 % (35.0-42.0); Hemoglobin 15.9 g/dL (11.7-13.8); Immature Granulocyte Absolute 0.01 K/mm3 (0.00-0.00); Immature Granulocyte Percent A 0.1 % (0.0-0.0); Lymphocytes Absolute Auto 3.13 K/mm3 (1.10-4.50); Lymphocytes Percent Auto 40.3 % (18.0-42.0); Mean Corpuscular Hemoglobin 32.7 pg (27.0-31.0); Mean Corpuscular Volume 96.1 fL (78.0-102.0); Mean Platelet Volume 8.5 fl (9.2-11.8); Monocytes Absolute Auto 0.84 K/mm3 (0.10-0.90); Monocytes Percent Auto 10.8 % (2.0-11.0); Neutrophils Absolute Auto 3.5 K/mm3 (1.7-7.2); Neutrophils Percent Auto 45.7 % (50.0-70.0); Platelet Count Result 275 K/mm3 (150-420); Red Blood Count 4.86 M/mm3 (4.20-5.40); Red Cell Distribution Width 13.1 % (11.6-14.4); White Blood Count 7.8 K/mm3 (4.8-10.8)
[2021-07-16 14:05] LABS: Hemoglobin A1C 5.8 % (<5.7)
[2021-07-16 14:14] LABS: Creatinine Urine 89.81 mg/dL (40-278); MALB Creatinine Ratio 37.7 mg/g (0-30); Microalbumin Urine Random 33.9 mg/L
[2021-07-16 14:21] LABS: Alanine Aminotransferase 23 U/L (14-59); Albumin Level 4.4 g/dL (3.4-5.0); Alkaline Phosphatase 130 U/L (46-116); Anion Gap 10 mmol/L (8-16); Aspartate Amino Transferase 20 U/L (15-37); Bilirubin,Total 0.6 mg/dL (0.00-1.00); Blood Urea Nitrogen 7 mg/dL (7-18); Calcium 9.5 mg/dL (8.5-10.1); Carbon Dioxide 30 mmol/L (21-32); Chloride 96 mmol/L (98-108); Cholesterol 171 mg/dL (0-200); Estimated Glomerular Filt Rate > 60; Glucose 96 mg/dL (70-99); HDL Direct 79 mg/dL (40-60); LDL Cholesterol Calculated 82 mg/dL (<130); Osmolality Calculated 280 mOsm/kg (285-295); Potassium 4.4 mmol/L (3.5-5.1); Sodium 136 mmol/L (136-145); Total Protein 7.3 g/dL (6.4-8.2); Triglycerides 51 mg/dL (0-150)
== END 2021-07-16 13:45 | disposition home or self-care (01) ==
PROVIDERS: PCP Nurse Practitioner Family; Visit Provider Nurse Practitioner Family
DX: E11.59 Type 2 diabetes mellitus with other circulatory complications (principal); I10 Essential (primary) hypertension
CPT/HCPCS: 36415; 80053; 80061; 82043; 83036; 85025

== ENCOUNTER 2022-02-25 09:26 | Outpatient (CLI) | payer MEDICARE, SELFPAY ==
--- NOTE | ~2022-02-25 | US_ITS ---
EXAMINATION: US thyroid DATE: 02/25/2022 11:00 INDICATION: Nontoxic single thyroid nodule. TECHNIQUE: Multiple ultrasound images of the thyroid were obtained. COMPARISON: Ultrasound 12/14/2013 FINDINGS: The right thyroid lobe measures 4.6 x 1.8 x 1.9 cm. The left thyroid lobe measures 4.9 x 2.7 x 1.9 c m. In the left thyroid lobe, there is a 2.4 cm solid, hypoechoic, wider than tall nodule with smooth margin without echogenic foci (TI-RADS TR4), stable from 12/14/13, likely benign. In the left thyroid lobe, there is a 5 mm solid, hypoechoic, wider than tall nodule with smooth margin and peripheral gary cifications (TR4), stable from 12/14/13, likely benign. In the left thyroid lobe, there is a 10 mm anali d, isoechoic, wider than tall nodule with smooth margin without echogenic foci (TR3). In the right th yroid lobe, there is a 12 mm solid, isoechoic, wider than tall nodule with ill-defined margin without echogenic foci (TR3). IMPRESSION: 1. Thyroid nodules, likely not clinically significant. No follow-up is needed. Reviewed, dictated and finalized at location B.
== END 2022-02-25 09:27 | disposition home or self-care (01) ==
LOC: CHSIMG 09:30
PROVIDERS: PCP Nurse Practitioner Family; Visit Provider Nurse Practitioner Family
DX: E04.1 Nontoxic single thyroid nodule (principal)
CPT/HCPCS: 76536

== ENCOUNTER 2022-09-10 09:43 | Inpatient (IN) | payer MEDICARE, SELFPAY ==
[2022-09-10] VITALS (16 sets, daily range): BP systolic 145–197; BP diastolic 59–74; PULSE 62–70; RESP 16–24; TEMP 36.4–36.7; O2SAT 95–100; BMI 24.2
--- NOTE | ~2022-09-10 | MR_ITS ---
MRI of the brain Clinical History: Altered mental status, slurred speech Technique: Axial and sagittal T1-weighted images were acquired. These were followed by axial T2-weigh lorena, diffusion weighted, gradient, and FLAIR images. Following intravenous administration of 11 cc Mu ltiHance gadolinium, T1-weighted fat-sat imaging was performed in the axial, coronal, and sagittal pl anes. Findings: There is an 8 mm focal area of restricted diffusion in the anterior left thalamus, consiste nt with focal acute infarct. No intracranial hemorrhage identified. There is diffuse background chron ic white matter disease on FLAIR images, the additional involvement of the akash. Ventricles and subarachnoid spaces are mildly dilated. Orbits are unremarkable. Paranasal sinuses and mastoid air cells are clear. Major intracranial flow voids appear intact. Sagittal midline structures are intact. No abnormal postcontrast enhancement identified. IMPRESSION: 8 mm focal acute infarct in the anterior left thalamus. Diffuse chronic white matter disease, most likely severe chronic microvascular ischemic change. Reviewed, dictated and finalized at [facility]. OR WEB ARCHITECT
--- NOTE | ~2022-09-10 | XR_ITS ---
Clinical Indication: Altered mental status PA and lateral views of the chest: Comparison: 02/16/2021 Findings: The lungs are clear, without evidence of focal consolidation or pleural effusion. Cardiome diastinal silhouette is within normal limits. Bones and soft tissues are unremarkable. Impression: Normal chest. Reviewed, dictated and finalized at [facility]. OR OFFICE ASSISTANT Impression: Normal chest.
--- NOTE | ~2022-09-10 | CT_ITS ---
EXAMINATION: CTA BRAIN/CAROTID DATE: 09/10/2022 11:07 INDICATION: Subacute stroke TECHNIQUE: Computed tomographic angiography (CTA) of the head and neck was performed with 100 mL Omni paque-350 intravenous contrast. Multiplanar reconstructions and maximum intensity projection 3D-recon structions of the carotid arteries and of the intracranial arteries were created by the technologist on a separate workstation. Precontrast CT of the head was also obtained. Automated exposure control and iterative reconstruction technique were employed.The dose-length product was 895.10 mGy-cm. COMPARISON: None. FINDINGS: Carotid arteries: There is 20% stenosis of the right carotid bulb relative to normal distal artery lumen diameter (NASC ET criteria). There is 35% stenosis of the left carotid bulb relative to normal distal artery lumen d iameter. Visualized aortic arch is normal in caliber with scattered nonhemodynamically significant at herosclerotic plaque. There is mild nonhemodynamically significant atherosclerotic plaque at the inno minate and along the left common carotid arteries. 80% stenosis at the origin of the left subclavian artery. The vertebral arteries are codominant. The left vertebral artery has a normal anatomic varian t direct origin at the aortic arch between the left common carotid and left subclavian arteries with 40% stenosis at its origin. There is also 40% stenosis at the origin of the right vertebral artery wi th normal origin arising from the right subclavian artery. Multinodular goiter with dominant hyperenh ancing 2.6 cm left thyroid nodule. Visualized cervical soft tissues and the visualized upper mediasti num are otherwise unremarkable. Visualized airway and bilateral upper lungs are clear. Moderate lower cervical spondylosis. Intracranial arteries Atherosclerotic plaque without hemodynamically significant stenosis along the bilateral carotid sipho ns. There is no hemodynamically significant stenosis in the vertebral, basilar and internal carotid a rteries. Vertebral arteries are codominant. There are no aneurysms identified. Both A1 and P1 segmen ts are patent. The right P1 segment is diminutive with majority of flow to the right posterior circul ation arising from the right internal carotid artery via a patent right posterior communicating arter y. Cerebral arterial arborization appears symmetric. No abnormally enhancing brain lesions identified . IMPRESSION: 1. 20% stenosis of the right carotid bulb relative to normal distal artery lumen diameter (NASCET cri teria). 2. 35% stenosis of the left carotid bulb relative to normal distal artery lumen diameter. 3. Atherosclerotic plaque at the aortic arch and great vessels arising from the arch with 80% stenosi s at the proximal left subclavian artery and 40% stenosis at the origin of the bilateral vertebral ar teries, the left vertebral artery with normal anatomic variant separate origin from the aortic arch. 3. No cerebral arterial aneurysm or hemodynamically significant stenosis with normal anatomic variant diminutive right P1 segment with collateral supply via a larger caliber right posterior communicatin g artery. 4. Multinodular goiter. Recommend thyroid ultrasound for risk stratification with 2.5 m enhancing lef t thyroid nodule likely meeting criteria for ultrasound-guided biopsy. Reviewed, dictated and finalized at location A. O CASE AND BENCH ASSEMBLER IMPRESSION: 1. 20% stenosis of the right carotid bulb relative to normal distal artery lume n diameter (NASCET criteria). 2. 35% stenosis of the left carotid bulb relative to normal distal artery lumen diameter. 3. Atherosclerotic plaque at the aortic arch and great vessels arising from the arch with 80% stenosis at the proximal left subclavian artery and 40% stenosis at the
--- NOTE | ~2022-09-10 | US_ITS ---
Thyroid ultrasound. Clinical History: Thyroid nodule Findings: Real-time sonography of the thyroid gland was performed. The right lobe measures 4.2 x 1.4 x 1.5 cm. The left lobe measures 5.3 x 3.1 x 1.9 cm. The isthmus is 5 mm in AP diameter. There is a 1.0 x 0.8 x 0.7 cm solid round nodule at the right lower pole, with portions which are bot h isoechoic and hypoechoic. There is a 2.5 x 2.3 x 1.9 cm solid, mildly hypoechoic nodule at the left midpole posteriorly. Impression: 2.5 cm solid left midpole nodule, consistent with TR-4 lesion. Given size, FNA is advised. Reviewed, dictated and finalized at location . RVER GRAVITY PROSPECTING Impression: 2.5 cm solid left midpole nodule, consistent with TR-4 lesion. Given size, FNA is advised.
--- NOTE | ~2022-09-10 | CT_ITS ---
EXAMINATION: CT brain wo con INDICATION: Confusion COMPARISON: None TECHNIQUE: Standard unenhanced head CT. The dose-length product (DLP) was 529.67 mGy-cm. The mA was a djusted according to patient size. Iterative reconstruction technique was employed. FINDINGS: There is no acute intraparenchymal hemorrhage. No evidence of mass lesion. There is low-att enuation in the anterior limb of the right internal capsule and adjacent basal ganglia. There is mild periventricular and subcortical hypodensity probably related to small vessel ischemic disease. There is mild prominence of the sulci and ventricles related to cerebral atrophy. Intracranial calcified c erebral atherosclerosis is noted. There are no extra-axial collections. There is no mass effect or mi dline shift. Changes in the globes are likely from ocular lens surgery. The visualized sinuses and ma stoid air cells are well aerated. IMPRESSION: 1. Age indeterminate infarct of the right internal capsule and basal ganglia, possibly subacute. 2. Age related findings. Reviewed, dictated and finalized at location B. OSITE BOND WORKER IMPRESSION: 1. Age indeterminate infarct of the right internal capsule and basal ganglia, p ossibly subacute. 2. Age related findings.
--- NOTE | ~2022-09-10 | US_ITS ---
EXAMINATION: US FNA w image guidance DATE: 09/12/2022 12:42 INDICATION: Left thyroid nodule TECHNIQUE: A time-out was performed to verify the patient's name, date of , and procedure to be performed . The procedure and its benefits and risks were discussed with the patient. Risks specifically discus sed included bleeding and infection. The patient understood the risks and agreed to proceed. The neck was prepped and draped in the usual sterile manner. 3 mL 1% lidocaine was used for local anesthesia . 6 passes were made with a 25G needle into the lesion. Appropriate needle location was documented with continuous sonographic guidance. A sterile bandage was applied. There were no immediate compli cations. FINDINGS: Grayscale ultrasound images demonstrate biopsy needles advanced into the 2.9 cm TI RADS 4 nodule conc moshe at the mid to inferior left thyroid. IMPRESSION: 1. Successful ultrasound-guided fine needle aspiration of a 2.9 cm TI RADS 4 left thyroid nodule. Reviewed, dictated and finalized at location A. EM DEVELOPMENT ENGINEER IMPRESSION: 1. Successful ultrasound-guided fine needle aspiration of a 2.9 cm TI RADS 4 l eft thyroid nodule.
--- NOTE | 2022-09-10 09:52 | ECG_ITS ---
Measurements Intervals [place] Rate: 61 P: 66 DC: 204 QRS: 246 QRSD: 142 T: -8 QT: 445 QTc: 451 Interpretive Statements SINUS RHYTHM RIGHT BUNDLE BRANCH BLOCK [120+ ms QRS DURATION, UPRIGHT V1, 40+ ms S IN I/aVL/V4/V5/V6] COMPARED TO ECG 02/18/2021 06:32:59 SINUS RHYTHM NOW PRESENT Electronically Signed On 09-10-2022 13:23:12 [employer] by Simeon Lockwood M.D.
--- NOTE | 2022-09-10 09:58 | PC.NURSE ---
Dr. Borges at bedside to assess pt.
--- NOTE | 2022-09-10 10:10 | ED.AMS ---
HPI - Altered Mental Status General Chief Complaint: Altered Mental Status Stated Complaint: ams Time Seen by Provider: 09/10/22 09:45 Source: patient, family, RN notes reviewed and old records reviewed Mode of arrival: ambulatory Limitations: altered mental status History of Present Illness HPI narrative: This is a 77 year old female who presents with for evaluation of altered mental status. Patient's states patient has been acting odd for 2 days. He states last night she went to sleep with her hearing aides and dentures and he states that is abnormal. This morning patient was holding her nebulizer up to her ear, and she told her that is how you use it so he brought her in . He also reports patient has had delayed speech for a few weeks. He is unaware of medication change. he denies any recent falls. Patent is oriented to person, age and place. She denies any pain or any complaints. She denies weakness. Related Data Home Medications Medication Instructions Recorded Confirmed vitamins A,C,D-ifet-izypea 14,320 1 cap PO BID 08/12/19 09/10/22 unit-226 mg-200 unit capsule (ICaps AREDS) cholecalciferol (vitamin D3) 50 50 mcg PO DAILY 06/04/20 09/10/22 mcg (2,000 unit) capsule amlodipine 10 mg tablet 10 mg PO DAILY 10/07/21 09/10/22 Allergies Allergy/AdvReac Type Severity Reaction Status Date / Time JOAQUINA Inhibitors Allergy Intermediate angioedema Verified 04/14/22 13:14 acetaminophen Allergy Intermediate Sleepiness Verified 04/14/22 13:14 [Tylenol-Codeine #3] codeine [Tylenol-Codeine #3] Allergy Intermediate Sleepiness Verified 04/14/22 13:14 hydrochlorothiazide [Dyazide] Allergy Intermediate Hyponatremi Verified 04/14/22 13:14 a lisinopril Allergy Intermediate TONGUE Verified 04/14/22 13:14 SWELLING tramadol Allergy Intermediate nausea Verified 04/14/22 13:14 triamterene [Dyazide] Allergy Intermediate Hyponatremi Verified 04/14/22 13:14 a Review of Systems Review of Systems: ROS unobtainable: Yes unobtainable due to mental status PMFSH Past Medical History Medical History Alcohol use disorder Atypical atrial flutter COPD (chronic obstructive pulmonary disease) COPD exacerbation Edema of both legs Hearing loss Hypertension associated with diabetes Hypertensive retinopathy of both eyes Hyponatremia Left wrist pain Macular degeneration Nicotine dependence Osteoarthritis Osteopenia Pneumonia Preoperative general physical examination Pseudophakia Sinus tachycardia Tachycardia Tobacco abuse Type 2 diabetes mellitus, without long-term current use of insulin Venous stasis ulcer Vitamin D deficiency Surgical History Surgical History History of appendectomy History of cataract removal with insertion of prosthetic lens Right eye only History of cholecystectomy History of right knee joint replacement (~2014) Family History Family History Father Hypertension Mother Hypertension Ovarian cancer Other Arthritis Diabetes mellitus Social History Social History (Updated 09/10/22 @ 16:57 by Suad Aden NP) Social History: The patient continues to smoke 1 pack a cigarettes per day. She drinks 2 highballs a night. She lives with her . He is the durable power printing sales representative for healthcare. She has 2 children. 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 Code status full code Smoking packs per day: 1 Smoking cigarettes per day: 20.0 Years smoked: 40 Smoking pack-years: 40.00 Smoking status: Current every day smoker Tobacco type: cigarettes Second hand tobacco smoke exposure: Yes Alcohol intake: current Drinks per week: 2 Substance use: never Substance use type: does not use Lack of Transportation: No Lack of Food: Never True Current Housing: I Have Housing Concerned Abou
[2022-09-10 10:29] LABS: Basophils Absolute Auto 0.1 K/mm3 (0.0-0.1); Basophils Percent Auto 0.7 % (0.2-1.2); Eosinophils Absolute Auto 0.2 K/mm3 (0-0.3); Eosinophils Percent Auto 2.3 % (0-4.4); Hematocrit 46.3 % (37.0-47.0); Immature Granulocyte Absolute 0.02 K/mm3 (0.00-0.031); Immature Granulocyte Percent A 0.2 % (0-0.5); Lymphocytes Absolute Auto 1.86 K/mm3 (0.9-3.2); Lymphocytes Percent Auto 19.6 % (18.3-44.2); Mean Corpuscular HGB Conc 32.4 g/dl (32-36); Mean Corpuscular Hemoglobin 31.5 pg (26-34); Mean Corpuscular Volume 97.3 fl (80-100); Mean Platelet Volume 9.5 fl (7.4-10.4); Monocytes Percent Auto 10.1 % (2.6-8.5); Neutrophils Absolute Auto 6.4 K/mm3 (1.3-6.7); Neutrophils Percent Auto 67.1 % (45.5-73.1); Platelet Count Result 289 k/mm3 (150-375); Red Blood Count 4.76 M/mm3 (4.2-5.4); Red Cell Distribution Width 14.1 % (11.5-14.5); White Blood Count 9.5 K/mm3 (4.5-10.0)
[2022-09-10 10:38] LABS: Alanine Aminotransferase 33 U/L (6-35); Albumin Level 4.4 g/dL (3.5-5.1); Alkaline Phosphatase 101 U/L (38-126); Anion Gap 7 mmol/L (8-16); Aspartate Amino Transferase 50 U/L (14-36); Bilirubin,Total 0.9 mg/dL (0.2-1.3); Blood Urea Nitrogen 13 mg/dL (7-17); Calcium 9.4 mg/dL (8.4-10.2); Carbon Dioxide 28 mmol/L (22-30); Chloride 99 mmol/L (98-107); Estimated CRCL calculation 58 ml/min; Estimated Glomerular Filt Rate > 60; Glucose 112 mg/dL (65-110); Potassium 3.9 mmol/L (3.4-5.0); Sodium 134 mmol/L (137-145)
[2022-09-10 10:40] LABS: INR 1.3; Prothrombin Time 15.5 Seconds (11.1-14.7)
--- NOTE | 2022-09-10 10:40 | PC.NURSE ---
Patient off unit to CT.
[2022-09-10 10:41] LABS: Partial Thromboplastin Time 36.9 SECONDS (22.3-36.8)
--- NOTE | 2022-09-10 11:08 | PC.NURSE ---
Patient report given to ALICE Tenorio. All questions answered and care of patient transferred.
[2022-09-10] MEDS: LOSARTAN POTASSIUM 100 MG TABLET PO (11:26)
[2022-09-10] MEDS: ASPIRIN 81 MG CHEWABLE TABLET 324 MG PO (11:26)
[2022-09-10] MEDS: atenoloL 25 MG TABLET PO (11:26)
[2022-09-10 12:10] LABS: Troponin I < 0.012 ng/mL (0.000-0.034)
[2022-09-10 12:32] LABS: Influenza A QL RT-PCR Negative (Negative); Influenza B QL RT-PCR Negative (Negative); SARS-CoV-2 RNA PCR Negative
[2022-09-10 12:37] LABS: Add Urine Microscopic? YES; Appearance Urine Clear (Clear); Bilirubin Urine 1+ (Negative); Blood Urine Negative (Negative); Color Urine Light Yellow (Yellow); Glucose Urine UA Negative (Negative); Ketones Urine Negative (Negative); Leukocyte Esterase Ur Negative LEU/UL (Negative); Nitrate Urine Negative (Negative); Protein Urine Negative (Negative); Specific Grav Ur <= 1.005 (1.001-1.035); Urobilinogen Urine 0.2 mg/dL (<2.0)
[2022-09-10 12:39] LABS: Mucus Urine Rare /lpf; RBC Urine 0-2 /hpf (0-2); Squamous Epithelial Cell Urine Rare /hpf (Few); WBC Urine 0-3 /hpf
[2022-09-10 12:42] LABS: Ethanol < 10 mg/dL (<10)
[2022-09-10 12:52] LABS: Amphetamine Screen Urine Negative (Negative); Barbiturate Screen Urine Negative (Negative); Benzodiazepines Screen Urine Negative (Negative); Cannabinoid Screen Urine Negative (Negative); Cocaine Screen Urine Negative (Negative); Methadone Screen Urine Negative (Negative); Opiate Screen Urine Negative (Negative); Phencyclidine Screen Urine Negative (Negative)
--- NOTE | 2022-09-10 13:17 | PM.IMHP ---
H&P: HPI History of Present Illness Date/Time: 09/10/22 13:17 Chief Complaint: Altered mental status Narrative: This is a 77-year-old female patient who does have a history of hypertension. The patient was brought in to the emergency room for evaluation of altered mental status. According to the the patient has been acting odd for the last 2 days. The patient went to sleep in her hearing H which is not normal for her. She also slipped in her dentures which is not normal for her. This morning the patient was holding up her nebulizer treatment to her ear and stated this is how use a breathing machine. She has also had delayed speech for the last few weeks. No medication changes. The patient is orientated to person and place and her age. The patient is able to answer some questions but is also hard of hearing. Her speech is slow and delayed. The is answering the majority of the questions for me during the interview. The patient was noted to have a mild left facial droop and some mild weakness in the left upper and left lower extremity. Head and neck CTA was read as the following. 20% stenosis of the right carotid bulb relative to normal distal artery lumen diameter (NASCET criteria). 2. 35% stenosis of the left carotid bulb relative to normal distal artery lumen diameter. 3. Atherosclerotic plaque at the aortic arch and great vessels arising from the arch with 80% stenosis at the proximal left subclavian artery and 40% stenosis at the origin of the bilateral vertebral arteries, the left vertebral artery with normal anatomic variant separate origin from the aortic arch. 3. No cerebral arterial aneurysm or hemodynamically significant stenosis with normal anatomic variant diminutive right P1 segment with collateral supply via a larger caliber right posterior communicating artery. 4. Multinodular goiter. Recommend thyroid ultrasound for risk stratification with 2.5 m enhancing left thyroid nodule likely meeting criteria for ultrasound-guided biopsy. Chest x-ray is normal. Head CT was read as the following1. Age indeterminate infarct of the right internal capsule and basal ganglia, possibly subacute. 2. Age related findings. The patient is currently on Eliquis the patient is being admitted to observation status on the date of service of 2021. Review of Systems Review of Systems: See HPI All systems reviewed & are unremarkable except as noted in HPI and below Constitutional: Constitutional: Reports as per HPI and Reports no additional constitutional complaints Eyes: Eyes: Reports as per HPI and Reports no additional eye complaints ENT: Reports system reviewed and no additional complaints, except as documented and Reports Normal hearing present Cardiovascular: Cardiovascular: Reports no additional cardiovascular complaints Respiratory: Respiratory: Reports no additional respiratory complaints and Reports no additional respiratory complaints Gastrointestinal: Gastrointestinal: Reports as per HPI and Reports no additional gastrointestinal complaints Musculoskeletal: Musculoskeletal: Reports no additional musculoskeletal complaints Integumentary/Breasts: Skin/Breast: Reports system reviewed and no additional complaints, except as docu and Reports as per HPI Neurologic: Reports system reviewed and no additional complaints, except as documented, Reports as per HPI and Reports Normal hearing present Psychiatric: Psychiatric: Reports no additional psychiatric complaints and Reports as per HPI Endocrine: Endocrine: Reports no additional endocrine complaints Hematologic/Lymphatic: Hematologic/Lymphatic: Reports no additional hematologic/lymphatic complaints Allergic/Immunologic: Allergic/Immunologic: Reports no additional allergic/immunologic complaints PMFSH Past Medical History Medical History Alcohol use disorder Atypical atrial flutter COPD (chronic obstructive pulmonary
--- NOTE | 2022-09-10 14:37 | ADMGEN ---
This patient, Kelly Kaba, was admitted to [facility] Room 306-02. Patient/family oriented to hospital policies and general routines including ID bracelet, bed and alarms, visiting hours, pain management, procedures, bathroom and other care routines, personal items, smoking policy, room service/diet, and visiting hours. Information on how to activate the Rapid Response Team has been discussed. Patient/Family are encouraged to report perceived risks to care and to ask questions if they do not understand what they are told or what they should do.
[2022-09-10 16:55] LABS: Glucose Point of Care 93 mg/dl (65-105)
[2022-09-10 17:16] LABS: Hemoglobin A1C 5.8 % (<5.7)
[2022-09-10] MEDS: APIXABAN 5 MG TABLET BY MOUTH (17:34)
[2022-09-10] MEDS: amLODIPine BESYLATE 5 MG TABLET 10 MG PO (17:34)
[2022-09-10] MEDS: BUDESONIDE RESPULE NEB 0.5 MG/2 ML AMP INHALATION (20:38)
[2022-09-11] VITALS (10 sets, daily range): BP systolic 125–147; BP diastolic 58–65; PULSE 60–67; RESP 14–18; TEMP 36.3–36.6; O2SAT 95–99
[2022-09-11 00:14] LABS: Glucose Point of Care 124 mg/dl (65-105)
[2022-09-11 07:00] LABS: Glucose Point of Care 121 mg/dl (65-105)
[2022-09-11 07:05] LABS: Basophils Absolute Auto 0.1 K/mm3 (0.0-0.1); Basophils Percent Auto 0.8 % (0.2-1.2); Eosinophils Absolute Auto 0.3 K/mm3 (0-0.3); Immature Granulocyte Absolute 0.01 K/mm3 (0.00-0.031); Immature Granulocyte Percent A 0.1 % (0-0.5); Lymphocytes Absolute Auto 2.08 K/mm3 (0.9-3.2); Lymphocytes Percent Auto 26.9 % (18.3-44.2); Mean Corpuscular HGB Conc 33.3 g/dl (32-36); Mean Corpuscular Hemoglobin 31.2 pg (26-34); Mean Corpuscular Volume 93.6 fl (80-100); Mean Platelet Volume 9.7 fl (7.4-10.4); Monocytes Absolute Auto 0.7 K/mm3 (0.1-0.6); Monocytes Percent Auto 9.4 % (2.6-8.5); Neutrophils Absolute Auto 4.5 K/mm3 (1.3-6.7); Neutrophils Percent Auto 58.8 % (45.5-73.1); Platelet Count Result 281 k/mm3 (150-375); Red Blood Count 4.81 M/mm3 (4.2-5.4); Red Cell Distribution Width 13.9 % (11.5-14.5); White Blood Count 7.7 K/mm3 (4.5-10.0)
[2022-09-11 07:12] LABS: Alanine Aminotransferase 32 U/L (6-35); Albumin Level 4.1 g/dL (3.5-5.1); Alkaline Phosphatase 96 U/L (38-126); Anion Gap 7 mmol/L (8-16); Aspartate Amino Transferase 37 U/L (14-36); Bilirubin,Total 0.8 mg/dL (0.2-1.3); Blood Urea Nitrogen 10 mg/dL (7-17); Carbon Dioxide 29 mmol/L (22-30); Chloride 99 mmol/L (98-107); Estimated CRCL calculation 61 ml/min; Estimated Glomerular Filt Rate > 60; Glucose 108 mg/dL (65-110); Magnesium 1.8 mg/dL (1.6-2.3); Potassium 3.5 mmol/L (3.4-5.0); Sodium 135 mmol/L (137-145)
[2022-09-11 07:13] LABS: Lactic Acid Reflex 0.9 mmol/L (0.7-2.0)
[2022-09-11] MEDS: BUDESONIDE RESPULE NEB 0.5 MG/2 ML AMP INHALATION ×2 (08:15→21:47)
[2022-09-11 09:01] LABS: Glucose Point of Care 106 mg/dl (65-105)
[2022-09-11] MEDS: APIXABAN 5 MG TABLET BY MOUTH (09:35)
[2022-09-11] MEDS: FLUTICASONE PROPIONATE 0.05% NA SPR 16 GM BTL (*BKC) 2 SPRAY NASAL (09:35)
[2022-09-11] MEDS: CHOLECALCIFEROL 1,000 UNITS TABLET 2000 UNITS PO (09:35)
[2022-09-11] MEDS: SPIRONOLACTONE 50 MG TABLET BY MOUTH (09:35)
[2022-09-11] MEDS: atenoloL 25 MG TABLET BY MOUTH (09:36)
[2022-09-11] MEDS: amLODIPine BESYLATE 5 MG TABLET 10 MG PO (09:36)
[2022-09-11] MEDS: LOSARTAN POTASSIUM 100 MG TABLET PO (09:36)
[2022-09-11 09:43] LABS: Cholesterol 160 mg/dL (0-200); HDL Direct 39 mg/dL; Triglycerides 106 mg/dL (<150)
[2022-09-11 09:53] LABS: LDL Cholesterol Direct 80 mg/dL
--- NOTE | 2022-09-11 11:30 | PM.IMPN ---
Progress Note: A&P Assessment and Plan (1) CVA (cerebral vascular accident): Code(s): I63.9 - Cerebral infarction, unspecified Status: Acute Assessment and Plan: CT of the brain showed age-indeterminate infarct of the right internal capsule and basal ganglia possible subacute MRI of the brain did show an 8 mm infarct of the anterior left thalamus Head CT 20% stenosis of the right carotid bulb, 35% stenosis of the left carotid bulb, plaque at the aortic arch and great vessels from the arch with 80% stenosis of the subclavian, 40% stenosis of the bilateral vertebral arteries Dr. Carey has been consulted. Switch Eliquis to Xarelto since she had a new stroke Echo with bubble study has been ordered, but not taken PT OT and speech therapy evaluation would greatly be appreciated. (2) Thyroid nodule: Code(s): E04.1 - Nontoxic single thyroid nodule Status: Acute Assessment and Plan: Thyroid ultrasound on 02/26/2020 to which shows thyroid nodules likely not clinically significant no follow-up needed. Head neck CTA it shows a multi nodule goiter recommend thyroid ultrasound for risk stratification with a 2.5 mm enhance left thyroid nodule likely meeting criteria for ultrasound-guided biopsy. Ultrasound identified 2.5cm solid left midpole nodule consistent with TR-4, given size FNA recommended FNA ordered Await pathology report (3) Atypical atrial flutter: Code(s): I48.4 - Atypical atrial flutter Status: Acute Assessment and Plan: -the patient is on apixaban, which should be switched Xarelto as the patient has failed eliquis -continue with beta-link -tele monitor -Trend Heart rate (4) Macular degeneration: Code(s): H35.30 - Unspecified macular degeneration Status: Acute Assessment and Plan: -continue with patient's home medication (5) Hypertension associated with diabetes: Code(s): E11.59 - Type 2 diabetes mellitus with other circulatory complications; I10 - Essential (primary) hypertension Status: Acute Assessment and Plan: Current BP 147/65 Continue home medications Continue to trend BP Adjust therapy as indicated (6) Type 2 diabetes mellitus, without long-term current use of insulin: Code(s): E11.9 - Type 2 diabetes mellitus without complications Status: Acute Assessment and Plan: -sliding scale insulin with hypoglycemic protocol. -hold metformin and due to the recent dye injection -Current glucose 108 -Trend glucose -adjust therapy as indicated -Accu Cheks AC/HS (7) COPD (chronic obstructive pulmonary disease): Qualifiers: COPD type: COPD with acute exacerbation Qualified Code(s): J44.1 - Chronic obstructive pulmonary disease with (acute) exacerbation Code(s): J44.9 - Chronic obstructive pulmonary disease, unspecified Status: Acute Assessment and Plan: -continue with home inhalers and nebulizers. -Stable no complaints of increased wheezes, sputum, or shortness of breath -Continue to trend respiratory status Time Spent With Patient Time with patient: Greater than 35 minutes Subjective Date/time seen: 09/11/22 1130 Interval history: 09/11/221129 Patient is doing ok. She denies any current complaints. She did state that the facial drooping on the left was new. Will switch her from Eliquis to Xarelto as she failed Eliquis at this time. Ultrasound of the thyroid did show the patient is an FNA which has been ordered. Patient is unaware of why she is on Eliquis. Patient does seem to have some comprehension deficits. She denies any chest pain, shortness a breath, nausea, vomiting, diarrhea, constipation, weakness or fatigue. 09/10/22? 13:17 This is a 77-year-old female patient who does have a history of hypertension.? The patient was brought in to the emergency room for evaluati
[2022-09-11 12:43] LABS: Glucose Point of Care 148 mg/dl (65-105)
--- NOTE | 2022-09-11 12:48 | WPDNEURCNPN ---
Assessment and Plan Assessment and plan (1) CVA (cerebral vascular accident): Code(s): I63.9 - Cerebral infarction, unspecified Status: Acute Plan 1. Cerebrovascular accident with need for the echo with bubble study and further evaluation accordingly 2. Noted Meri thyroid nodule to be pursued further 3. Atypical flutter 4. Underlying macular degeneration 5. Hypertension 6. Diabetes mellitus Consult date: 09/11/22 HPI: Kelly Kaba is a 77 year old female admitted to the hospital through the emergency room for the complaints of change in the mental status. As per the information available from the patient's in the ER reportedly patient has been acting ordered for 48 hours and in the morning patient were noted to holding her nebulizer up to the ear and night before she went to sleep with her hearing aids and dentures on patient has been noted Meri not speaking well for the last several weeks. He has been taking only amlodipine 10 mg daily but does have ongoing history of atypical atrial flutter with alcohol use disorder COPD hypertension diabetes mellitus and macular degeneration in addition to the venous stasis ulcers, she does have ongoing history of smoking 40 pack years with currently everyday smoker currently alcohol intake or 2 drinks per week initial CT scan was documented as abnormal because of the subacute cerebrovascular accident her vital signs were fairly stable except her being hypertensive routine CBC was normal and so as the BMP except sodium of 134 hemoglobin A1c was 5.8. The CT scan documented age indeterminate infarct of the right internal capsule, basal ganglia and raising the possibility of subacute in time but CTA documented only 20% stenosis of right carotid bulb 35% stenosis of left carotid bulb atherosclerotic plaques in the aortic arch with 80% stenosis of the proximal left subclavian artery and 40% stenosis at the origin of the bilateral vertebral artery she was also noted to have multi nodular goiter Review of Systems Review of Systems: All systems reviewed & are unremarkable except as noted in HPI and below PMFSH Past Medical History Medical History Alcohol use disorder Atypical atrial flutter COPD (chronic obstructive pulmonary disease) COPD exacerbation Edema of both legs Hearing loss Hypertension associated with diabetes Hypertensive retinopathy of both eyes Hyponatremia Left wrist pain Macular degeneration Nicotine dependence Osteoarthritis Osteopenia Pneumonia Preoperative general physical examination Pseudophakia Sinus tachycardia Tachycardia Tobacco abuse Type 2 diabetes mellitus, without long-term current use of insulin Venous stasis ulcer Vitamin D deficiency Surgical History Surgical History History of appendectomy History of cataract removal with insertion of prosthetic lens Right eye only History of cholecystectomy History of right knee joint replacement (~2014) Family History Family History Father Hypertension Mother Hypertension Ovarian cancer Other Arthritis Diabetes mellitus Social History Social History (Updated 09/10/22 @ 16:57 by Suad Aden NP) Social History: The patient continues to smoke 1 pack a cigarettes per day. She drinks 2 highballs a night. She lives with her . He is the durable power assistant attorney general for healthcare. She has 2 children. 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 Code status full code Smoking packs per day: 1 Smoking cigarettes per day: 20.0 Years smoked: 40 Smoking pack-years: 40.00 Smoking status: Current every day smoker Tobacco type: cigarettes Second hand tobacco smoke exposure: Yes Alcohol intake: current Drinks per week: 2 Substance use: never Substance use type: does not use Lack of Transportation: No Lack of Food: Never
[2022-09-11 16:44] LABS: Free T4 Free Thyroxine 1.54 ng/mL (0.78-2.19)
[2022-09-11 17:25] LABS: Folic Acid > 20.0 ng/mL (2.76->20)
[2022-09-11 17:32] LABS: Glucose Point of Care 159 mg/dl (65-105)
[2022-09-11 21:22] LABS: Glucose Point of Care 161 mg/dl (65-105)
[2022-09-12] VITALS (7 sets, daily range): BP systolic 125–149; BP diastolic 60–66; PULSE 58–68; RESP 14–16; TEMP 36.3; O2SAT 96–100
--- NOTE | 2022-09-12 | ECHO_ITS ---
Patient Info Name: Kelly Kaba Age: 77 years : 1945 Gender: Female Ht: 61 in Wt: 128 lbs BSA: 1.59 m2 HR: 66 bpm Heart Rhythm: Sinus Rhythm Technical Quality: Good Exam Date: 09/12/2022 9:36 AM Exam Location: [facility] Patient Status: Inpatient Admit Date: 09/11/2022 Staff Ordering Physician: Suad Aden NP Drama Professor: Corrina Aragon RDCS Attending Provider: Pal Harding MD Referring Physician: Keiko SCHOFIELD; Exam Type: CA echo doppler w bubble study Study Info Indications - CVA Complete two-dimensional, color flow and Doppler transthoracic echocardiogram is performed with agitated saline. Contrast/Agitated Saline Contrast/Ag. Saline: Agitated Saline Amount: 20.00 ml Administered By: Corrina Aragon [facility] Existing IV Access: Yes IV Access Condition: patent with no signs of infiltration History/Risk Factors Hypertension: Yes Congenital Heart Disease (CHD): No Diabetic Therapy: Oral Myocardial Infarction (NC): No Chronic Lung Disease: No Obesity: Yes Renal Disease: No Coronary Artery Disease (CAD) No Congestive Heart Failure (CHF): No Cardiomyopathy/LV Systolic Dysfunction: No Date of Last Tobacco Use: 06/04/2020 Diabetes Mellitus: Type II COPD: On Meds Tobacco Use: Current - Every Day If Any Current, Tobacco Type: Cigarettes If Current - Every Day \T\ Cigarettes, Amount: Heavy Tobacco Use (>=10/day) Cerebrovascular Disease: No DVT Treatment: Apixaban Deep Vein Thrombosis (DVT): None Dialysis: None Cardiac Arrest: No Summary 1. Moderate concentric left ventricular hypertrophy with vigorous systolic function. 2. No significant valvular disease. 3. Moderately dilated left atrium. 4. Agitated saline contrast injection demonstrates no intracardiac shunts. 5. Normal sinus rhythm. Recommendations * Continue medical therapy for diabetes. * Smoking cessation counseling is recommended for this patient. Left Ventricle Left ventricular chamber dimension is normal. Left ventricular systolic function is normal, estimated at 65-70%. There is moderate concentric increased left ventricular wall thickness. The left ventricular diastolic function is grade I diastolic dysfunction. Right Ventricle Right ventricular chamber dimension is normal. Left Atria Left atrial chamber dimension is moderately enlarged. Right Atria Right atrial chamber dimension is normal. Atrial Septum Intact interatrial septum visualized by agitated saline imaging. Aortic Valve The aortic valve is normal. Pulmonic Valve The pulmonic valve is normal. There is trace pulmonic regurgitation. Mitral Valve The mitral valve has normal leaflets. Tricuspid Valve The tricuspid valve leaflets are normal. There is trace tricuspid valve regurgitation. Pericardium/Pleural The pericardium appears normal. Aorta The aortic root size at the sinus of Valsalva is normal. Left Ventricular Outflow Tract Name Value Normal LVOT 2D LVOT Diameter 2.0 cm LVOT Doppler
[2022-09-12 07:03] LABS: Basophils Absolute Auto 0.1 K/mm3 (0.0-0.1); Basophils Percent Auto 0.6 % (0.2-1.2); Eosinophils Absolute Auto 0.3 K/mm3 (0-0.3); Eosinophils Percent Auto 3.2 % (0-4.4); Hematocrit 44.2 % (37.0-47.0); Hemoglobin 14.6 g/dL (12.0-15.0); Immature Granulocyte Absolute 0.01 K/mm3 (0.00-0.031); Immature Granulocyte Percent A 0.1 % (0-0.5); Lymphocytes Absolute Auto 2.07 K/mm3 (0.9-3.2); Lymphocytes Percent Auto 24.9 % (18.3-44.2); Mean Corpuscular Hemoglobin 31.1 pg (26-34); Mean Platelet Volume 9.6 fl (7.4-10.4); Monocytes Absolute Auto 0.8 K/mm3 (0.1-0.6); Monocytes Percent Auto 10.1 % (2.6-8.5); Neutrophils Absolute Auto 5.1 K/mm3 (1.3-6.7); Neutrophils Percent Auto 61.1 % (45.5-73.1); Platelet Count Result 283 k/mm3 (150-375); White Blood Count 8.3 K/mm3 (4.5-10.0)
[2022-09-12 07:17] LABS: Alanine Aminotransferase 34 U/L (6-35); Albumin Level 4.1 g/dL (3.5-5.1); Alkaline Phosphatase 93 U/L (38-126); Anion Gap 7 mmol/L (8-16); Aspartate Amino Transferase 41 U/L (14-36); Bilirubin,Total 0.6 mg/dL (0.2-1.3); Blood Urea Nitrogen 12 mg/dL (7-17); Calcium 9.2 mg/dL (8.4-10.2); Carbon Dioxide 28 mmol/L (22-30); Chloride 105 mmol/L (98-107); Estimated CRCL calculation 61 ml/min; Estimated Glomerular Filt Rate > 60; Glucose 131 mg/dL (65-110); Potassium 3.5 mmol/L (3.4-5.0); Sodium 140 mmol/L (137-145)
[2022-09-12 07:56] LABS: Glucose Point of Care 131 mg/dl (65-105)
[2022-09-12] MEDS: BUDESONIDE RESPULE NEB 0.5 MG/2 ML AMP INHALATION ×2 (08:24→20:46)
[2022-09-12] MEDS: UMECLIDINIUM/VILANTEROL 62.5-25 MCG ELLIPTA 1 PUFF INHALATION (08:24)
[2022-09-12] MEDS: amLODIPine BESYLATE 5 MG TABLET 10 MG PO (09:17)
[2022-09-12] MEDS: CHOLECALCIFEROL 1,000 UNITS TABLET 2000 UNITS PO (09:17)
[2022-09-12] MEDS: FLUTICASONE PROPIONATE 0.05% NA SPR 16 GM BTL (*BKC) 2 SPRAY NASAL (09:18)
[2022-09-12] MEDS: atenoloL 25 MG TABLET BY MOUTH (09:18)
[2022-09-12] MEDS: SPIRONOLACTONE 50 MG TABLET BY MOUTH (09:18)
[2022-09-12] MEDS: LOSARTAN POTASSIUM 100 MG TABLET PO (09:18)
--- NOTE | 2022-09-12 10:54 | PCOTNOTE ---
Attempted to see pt for Occupational Therapy treatment, however, pt is unavailable at this time due to being in testing currently.
[2022-09-12 11:40] LABS: Glucose Point of Care 174 mg/dl (65-105)
--- NOTE | 2022-09-12 13:50 | WPDNEUROLOGY ---
Neurology EEG Report General Information Date of Study: 09/12/22 TEST eeg DIAGNOSIS altered mental status CONDITION OF RECORDING awake drowsy and sleep EEG NUMBER [id number] CLINICAL HISTORY patient was brought in to the hospital for confusion and weakness. EEG DESCRIPTION Background rhythm consists of low to medium voltage 5 to 7 hertz per 2nd theta activity admixed with intermittent 3 to 4 hertz per 2nd delta activity. Bilateral symmetrical sleep activity seen during sleep. Hyperventilation not done. Photic stimulation not done. Non paroxysmal. Nonfocal. Nonlateralizing. IMPRESSION Abnormal record due to the presence of bihemispheric slow activity without any paroxysmal discharge. This abnormality suggestive of underlying organic or metabolic encephalopathy or postictal slowing clinical correlation recommended
--- NOTE | 2022-09-12 14:30 | PM.IMPN ---
Progress Note: A&P Assessment and Plan (1) CVA (cerebral vascular accident): Code(s): I63.9 - Cerebral infarction, unspecified Status: Acute Assessment and Plan: CT of the brain showed age-indeterminate infarct of the right internal capsule and basal ganglia possible subacute MRI of the brain did show an 8 mm infarct of the anterior left thalamus Head CT 20% stenosis of the right carotid bulb, 35% stenosis of the left carotid bulb, plaque at the aortic arch and great vessels from the arch with 80% stenosis of the subclavian, 40% stenosis of the bilateral vertebral arteries Dr. Carey has been consulted. Switch Eliquis to Xarelto since she had a new stroke Echo with bubble study EF of 65-70% left ventricle wall thickness with a grade 1 diastolic dysfunction. PT OT and speech therapy evaluation would greatly be appreciated. (2) Thyroid nodule: Code(s): E04.1 - Nontoxic single thyroid nodule Status: Acute Assessment and Plan: Thyroid ultrasound on 02/26/2020 to which shows thyroid nodules likely not clinically significant no follow-up needed. Head neck CTA it shows a multi nodule goiter recommend thyroid ultrasound for risk stratification with a 2.5 mm enhance left thyroid nodule likely meeting criteria for ultrasound-guided biopsy. Ultrasound identified 2.5cm solid left midpole nodule consistent with TR-4, given size FNA recommended FNA performed Await pathology report (3) Atypical atrial flutter: Code(s): I48.4 - Atypical atrial flutter Status: Acute Assessment and Plan: -the patient is on apixaban, which should be switched Xarelto as the patient has failed eliquis -continue with beta-link -tele monitor -Trend Heart rate (4) Macular degeneration: Code(s): H35.30 - Unspecified macular degeneration Status: Acute Assessment and Plan: -continue with patient's home medication (5) Hypertension associated with diabetes: Code(s): E11.59 - Type 2 diabetes mellitus with other circulatory complications; I10 - Essential (primary) hypertension Status: Acute Assessment and Plan: Current BP 125/60 Continue home medications Continue to trend BP Adjust therapy as indicated (6) Type 2 diabetes mellitus, without long-term current use of insulin: Code(s): E11.9 - Type 2 diabetes mellitus without complications Status: Acute Assessment and Plan: -sliding scale insulin with hypoglycemic protocol. -hold metformin and due to the recent dye injection -Current glucose 131 -Trend glucose -adjust therapy as indicated -Accu Cheks AC/HS (7) COPD (chronic obstructive pulmonary disease): Qualifiers: COPD type: COPD with acute exacerbation Qualified Code(s): J44.1 - Chronic obstructive pulmonary disease with (acute) exacerbation Code(s): J44.9 - Chronic obstructive pulmonary disease, unspecified Status: Acute Assessment and Plan: -continue with home inhalers and nebulizers. -Stable no complaints of increased wheezes, sputum, or shortness of breath -Continue to trend respiratory status Time Spent With Patient Time with patient: Greater than 35 minutes Subjective Date/time seen: 09/12/22 143 Interval history: 09/12/221429 Patient is doing ok today. She does not complain of any current problems, including chest pain, shortness of breath, nausea, vomiting, diarrhea, constipation, weakness, fatigue. Site from the biopsy is clean, dry, and intact. 09/11/22 1130 Patient is doing ok. She denies any current complaints. She did state that the facial drooping on the left was new. Will switch her from Eliquis to Xarelto as she failed Eliquis at this time. Ultrasound of the thyroid did show the patient is an FNA which has been ordered. Patient is unaware of why she is on Eliquis. Patient does seem to have so
[2022-09-12 16:36] LABS: Glucose Point of Care 134 mg/dl (65-105)
[2022-09-13 05:38] VITALS: BP 146/60; PULSE 60; RESP 18; TEMP 36.3; O2SAT 98
[2022-09-13 07:51] LABS: Basophils Absolute Auto 0.1 K/mm3 (0.0-0.1); Basophils Percent Auto 0.6 % (0.2-1.2); Eosinophils Absolute Auto 0.2 K/mm3 (0-0.3); Eosinophils Percent Auto 2.9 % (0-4.4); Hematocrit 44.1 % (37.0-47.0); Hemoglobin 14.2 g/dL (12.0-15.0); Immature Granulocyte Absolute 0.02 K/mm3 (0.00-0.031); Immature Granulocyte Percent A 0.2 % (0-0.5); Lymphocytes Absolute Auto 2.27 K/mm3 (0.9-3.2); Lymphocytes Percent Auto 27.7 % (18.3-44.2); Mean Corpuscular HGB Conc 32.2 g/dl (32-36); Mean Corpuscular Volume 96.3 fl (80-100); Mean Platelet Volume 9.4 fl (7.4-10.4); Monocytes Absolute Auto 0.7 K/mm3 (0.1-0.6); Monocytes Percent Auto 8.4 % (2.6-8.5); Neutrophils Absolute Auto 4.9 K/mm3 (1.3-6.7); Neutrophils Percent Auto 60.2 % (45.5-73.1); Platelet Count Result 250 k/mm3 (150-375); Red Blood Count 4.58 M/mm3 (4.2-5.4); White Blood Count 8.2 K/mm3 (4.5-10.0)
[2022-09-13 08:07] LABS: Alanine Aminotransferase 31 U/L (6-35); Albumin Level 4.1 g/dL (3.5-5.1); Alkaline Phosphatase 87 U/L (38-126); Anion Gap 5 mmol/L (8-16); Aspartate Amino Transferase 34 U/L (14-36); Bilirubin,Total 0.5 mg/dL (0.2-1.3); Blood Urea Nitrogen 11 mg/dL (7-17); Carbon Dioxide 29 mmol/L (22-30); Chloride 101 mmol/L (98-107); Estimated CRCL calculation 61 ml/min; Estimated Glomerular Filt Rate > 60; Glucose 129 mg/dL (65-110); Magnesium 1.9 mg/dL (1.6-2.3); Potassium 3.7 mmol/L (3.4-5.0); Sodium 135 mmol/L (137-145)
[2022-09-13 08:27] LABS: Glucose Point of Care 139 mg/dl (65-105)
[2022-09-13] MEDS: CHOLECALCIFEROL 1,000 UNITS TABLET 2000 UNITS PO (08:51)
[2022-09-13] MEDS: atenoloL 25 MG TABLET BY MOUTH (08:51)
[2022-09-13] MEDS: SPIRONOLACTONE 50 MG TABLET BY MOUTH (08:51)
[2022-09-13] MEDS: amLODIPine BESYLATE 5 MG TABLET 10 MG PO (08:51)
[2022-09-13] MEDS: LOSARTAN POTASSIUM 100 MG TABLET PO (08:51)
[2022-09-13] MEDS: FLUTICASONE PROPIONATE 0.05% NA SPR 16 GM BTL (*BKC) 2 SPRAY NASAL (08:51)
[2022-09-13] MEDS: ASPIRIN 81 MG ENTERIC TABLET PO (08:52)
[2022-09-13] MEDS: BUDESONIDE RESPULE NEB 0.5 MG/2 ML AMP INHALATION (09:10)
[2022-09-13] MEDS: UMECLIDINIUM/VILANTEROL 62.5-25 MCG ELLIPTA 1 PUFF INHALATION (09:10)
[2022-09-13 09:12] VITALS: PULSE 62; RESP 14; O2SAT 97
--- NOTE | 2022-09-13 09:30 | PM.DS ---
DS: Admitting Diagnosis Discharge Date 09/13/22929 Admitting Diagnosis Acute CVA DS: Discharge Diagnosis Discharge Diagnosis (1) CVA (cerebral vascular accident): Code(s): I63.9 - Cerebral infarction, unspecified Status: Acute Assessment and Plan: CT of the brain showed age-indeterminate infarct of the right internal capsule and basal ganglia possible subacute MRI of the brain did show an 8 mm infarct of the anterior left thalamus Head CT 20% stenosis of the right carotid bulb, 35% stenosis of the left carotid bulb, plaque at the aortic arch and great vessels from the arch with 80% stenosis of the subclavian, 40% stenosis of the bilateral vertebral arteries Dr. Carey has been consulted. Switch Eliquis to Xarelto since she had a new stroke Echo with bubble study EF of 65-70% left ventricle wall thickness with a grade 1 diastolic dysfunction. PT OT and speech therapy evaluation would greatly be appreciated. (2) Thyroid nodule: Code(s): E04.1 - Nontoxic single thyroid nodule Status: Acute Assessment and Plan: Thyroid ultrasound on 02/26/2020 to which shows thyroid nodules likely not clinically significant no follow-up needed. Head neck CTA it shows a multi nodule goiter recommend thyroid ultrasound for risk stratification with a 2.5 mm enhance left thyroid nodule likely meeting criteria for ultrasound-guided biopsy. Ultrasound identified 2.5cm solid left midpole nodule consistent with TR-4, given size FNA recommended FNA performed Await pathology report (3) Atypical atrial flutter: Code(s): I48.4 - Atypical atrial flutter Status: Acute Assessment and Plan: -the patient is on apixaban, which should be switched Xarelto as the patient has failed eliquis -continue with beta-link -tele monitor -Trend Heart rate (4) Macular degeneration: Code(s): H35.30 - Unspecified macular degeneration Status: Acute Assessment and Plan: -continue with patient's home medication (5) Hypertension associated with diabetes: Code(s): E11.59 - Type 2 diabetes mellitus with other circulatory complications; I10 - Essential (primary) hypertension Status: Acute Assessment and Plan: Current BP 125/60 Continue home medications Continue to trend BP Adjust therapy as indicated (6) Type 2 diabetes mellitus, without long-term current use of insulin: Code(s): E11.9 - Type 2 diabetes mellitus without complications Status: Acute Assessment and Plan: -sliding scale insulin with hypoglycemic protocol. -hold metformin and due to the recent dye injection -Current glucose 131 -Trend glucose -adjust therapy as indicated -Accu Cheks AC/HS (7) COPD (chronic obstructive pulmonary disease): Qualifiers: COPD type: COPD with acute exacerbation Qualified Code(s): J44.1 - Chronic obstructive pulmonary disease with (acute) exacerbation Code(s): J44.9 - Chronic obstructive pulmonary disease, unspecified Status: Acute Assessment and Plan: -continue with home inhalers and nebulizers. -Stable no complaints of increased wheezes, sputum, or shortness of breath -Continue to trend respiratory status DS: Summary Hospital Course Hospital Course: Patient is a 77-year-old female with a past medical history of AFib, hypertension, diabetes who presented to the hospital with slight confusion, delayed speech and left-sided facial droop. CT of the brain showed age-indeterminate infarct of the right internal capsule and basal ganglia. CTA of the head showed 20% stenosis of the right carotid bulb, 35% stenosis of left carotid bulb, plaque at the aortic arch and great vessels from the arch 80% stenosis in the subclavian 40% stenosis of the bilateral vertebral arteries. MRI of the brain did show an 8 mm infarct to the anterior left thalamus. Patient
== END 2022-09-13 12:41 | disposition home health service (06) | DRG 65 ==
LOC: ANHED 10:08 → ANH3MEDSUR 14:03
PROVIDERS: Nurse Practitioner; Psychiatry & Neurology Neurology; Admitting Provider Internal Medicine; Emergency Provider General Practice; PCP Nurse Practitioner Family; Visit Provider Nurse Practitioner
DX: I63.9 Cerebral infarction, unspecified (principal); I48.4 Atypical atrial flutter; I65.23 Occlusion and stenosis of bilateral carotid arteries; I65.03 Occlusion and stenosis of bilateral vertebral arteries; I70.0 Atherosclerosis of aorta; I10 Essential (primary) hypertension; J44.9 Chronic obstructive pulmonary disease, unspecified; E04.1 Nontoxic single thyroid nodule; E11.9 Type 2 diabetes mellitus without complications; E55.9 Vitamin D deficiency, unspecified; M85.80 Other specified disorders of bone density and structure, unspecified site; M19.90 Unspecified osteoarthritis, unspecified site; H35.033 Hypertensive retinopathy, bilateral; H35.30 Unspecified macular degeneration; H91.90 Unspecified hearing loss, unspecified ear; F10.90 Alcohol use, unspecified, uncomplicated; F17.210 Nicotine dependence, cigarettes, uncomplicated; Z20.822 Contact with and (suspected) exposure to COVID-19; Z96.651 Presence of right artificial knee joint; Z79.01 Long term (current) use of anticoagulants
CPT/HCPCS: 10005; 36415; 51701; 70450; 70496; 70498; 70553; 71046; 76536; 80053; 80061; 80307; 81001; 82607; 82746; 82948; 83036; 83605; 83735; 84439; 84443; 84484; 85025; 85610; 85730; 87636; 88173; 88305; 92507; 92523; 93005; 93306; 94640; 95816; 96375; 97110; 97116; 97161; 97166; 97530; 99285; A9270; A9577; G0378; Q9967

== ENCOUNTER 2022-11-13 10:33 | Outpatient (CLI) | payer MEDICARE, SELFPAY ==
--- NOTE | 2022-11-13 10:40 | ECG_ITS ---
Measurements Intervals [place] Rate: 75 P: CA: 0 QRS: 256 QRSD: 147 T: 76 QT: 436 QTc: 490 Interpretive Statements ATRIAL FLUTTER/TACHYCARDIA RIGHT AXIS DEVIATION RIGHT BUNDLE BRANCH BLOCK ABNORMAL ECG COMPARED TO ECG 09/10/2022 09:57:46 ATRIAL FLUTTER NOW PRESENT Electronically Signed On 11-13-2022 11:13:36 BOWLING FLOOR MANAGER by Eriberto Barone D.O.
== END 2022-11-13 10:34 | disposition home or self-care (01) ==
LOC: CHSLAB 10:34
PROVIDERS: PCP Nurse Practitioner Family; Visit Provider Internal Medicine Cardiovascular Disease
DX: I48.4 Atypical atrial flutter (principal); R94.31 Abnormal electrocardiogram [ECG] [EKG]
CPT/HCPCS: 93005

== ENCOUNTER 2022-12-04 09:51 | Outpatient (CLI) | payer MEDICARE, SELFPAY ==
--- NOTE | ~2022-12-04 | US_ITS ---
EXAMINATION: US carotid duplex BI DATE: 12/04/2022 12:05 INDICATION: Left subclavian artery stenosis TECHNIQUE: Grayscale, color Doppler, and pulsed Doppler images of the cervical carotid arteries were obtained. The degree of vessel stenosis is placed in one of the following categories: normal, <50%, 5 0-69%, >=70% but less than near-occlusion, near-occlusion, or total occlusion. Note that percent sten osis relative to normal distal artery lumen diameter is indirectly measured from velocity measurement s as described by Adalid, et al. Radiology 2003; 229:340-346. COMPARISON: Carotid CT angiogram dated 09/10/2022 FINDINGS: RIGHT: The right common carotid artery (CCA) peak systolic velocity (PSV) is 89 cm/s. The right internal car otid artery (ICA) PSV is 78 cm/s. The right ICA end-diastolic velocity (EDV) is 17 cm/s. The right IC A/CCA PSV ratio is 0.9. Grayscale and color Doppler images yield an estimate of <50% diameter reducti on from plaque in the ICA. The external carotid artery (ECA) PSV is 94 cm/s. There is antegrade flow in the right vertebral artery. LEFT: The left CCA PSV is 48 cm/s. The left ICA PSV is 46 cm/s. The left ICA EDV is 11 cm/s. The left ICA/C CA PSV ratio is 1.0. Grayscale and color Doppler images yield an estimate of <50% diameter reduction from plaque in the ICA. The ECA PSV is 324 cm/s. There is antegrade flow in the left vertebral artery . IMPRESSION: 1. <50% stenosis in the right internal carotid artery. 2. <50% stenosis in the left internal carotid artery. 3. Cardiac arrhythmias present. Correlate with EKG. Reviewed, dictated and finalized at location A.
== END 2022-12-04 09:52 | disposition home or self-care (01) ==
PROVIDERS: PCP Nurse Practitioner Family
DX: I77.1 Stricture of artery (principal); I65.23 Occlusion and stenosis of bilateral carotid arteries; I49.8 Other specified cardiac arrhythmias
CPT/HCPCS: 93880

== ENCOUNTER 2023-01-05 16:46 | Observation (INO) | payer MEDICARE, SELFPAY ==
[2023-01-05] VITALS (11 sets, daily range): BP systolic 124–139; BP diastolic 54–74; PULSE 68–79; RESP 17; TEMP 37.4–37.8; O2SAT 96–100; BMI 22.6
--- NOTE | ~2023-01-05 | CT_ITS ---
EXAMINATION: CT brain wo con DATE: 01/05/2023 17:35 INDICATION: FEVER W/CONFUSION FATIGUE. HX STROKE IN AUG 2022. . TECHNIQUE: Computed tomography (CT) of the head was performed without intravenous contrast. The mA wa s adjusted according to patient size. Iterative reconstruction technique was employed. The dose-lengt h product was 529.67 mGy-cm. COMPARISON: None. FINDINGS: No acute intracranial hemorrhage or extra-axial fluid collection. No hydrocephalus, mass, or herniation. No acute ischemic infarct. Unremarkable dural venous sinus attenuation. No acute osseous abnormality. Mucosal thickening in the ethmoid air cells, aerated secretions in the right sphenoid sinus, the heather ining aerated spaces are clear. Moderate atrophy and severe chronic white matter change. Right frontal lobe laminar necrosis. Atheros clerotic intracranial calcification. Bilateral old basal ganglia and left thalamic lacunar infarcts. IMPRESSION: No acute intracranial process. Right sphenoid findings may represent acute sinusitis in the appropria te clinical context. Reviewed, dictated and finalized at location K. IMPRESSION: No acute intracranial process. Right sphenoid findings may represent acute sinu sitis in the appropriate clinical context.
--- NOTE | ~2023-01-05 | XR_ITS ---
EXAMINATION: XR chest 1V portable Exam Date/Time: 01/05/2023 17:30 CDT HISTORY: FEVER WITH CONFUSION AND FATIGUE. Comparison: 09/10/2022. RESULT: Lines, tubes, and devices: None. Lungs and pleura: Clear. Cardiomediastinal silhouette: Stable. Other: No acute osseous or upper abdominal finding. IMPRESSION: No acute cardiopulmonary process. Reviewed, dictated and finalized at location K.
--- NOTE | 2023-01-05 16:48 | ECG_ITS ---
Measurements Intervals [place] Rate: 75 P: [place]: 0 QRS: 265 QRSD: 158 T: 25 QT: 423 QTc: 475 Interpretive Statements ATRIAL FIBRILLATION RIGHT AXIS DEVIATION [QRS AXIS > 100] RIGHT BUNDLE BRANCH BLOCK [120+ ms QRS DURATION, UPRIGHT V1, 40+ ms S IN I/aVL/V4/V5/V6] ABNORMAL ECG COMPARED TO ECG 11/13/2022 10:46:56 ATRIAL FIBRILLATION NOW PRESENT Electronically Signed On 01-06-2023 14:27:14 CDT by Austin Alonzo M.D.
--- NOTE | 2023-01-05 16:52 | ED.AMS ---
HPI - Altered Mental Status General Chief Complaint: Altered Mental Status Stated Complaint: altered mental status Time Seen by Provider: 01/05/23 16:48 History of Present Illness HPI narrative: Pt presents with confusion and altered mental status since around 0700 this morning. Pt was confused about her medication per her son and had two pills in her hand that she had not taken and said she was going to throw them away. Pt had CVA end of last year and had speech therapy there today and they felt her speech was more slurred per son. Pt not aware of cough or fever. Pt denies MARQUEZ. Related Data Home Medications Medication Instructions Recorded Confirmed vitamins A,C,P-csoz-ehrbdv 4,296 1 cap PO BID 08/12/19 01/05/23 mcg-226 mg-90 mg capsule (ICaps AREDS) cholecalciferol (vitamin D3) 50 50 mcg PO DAILY 06/04/20 01/05/23 mcg (2,000 unit) capsule Allergies Allergy/AdvReac Type Severity Reaction Status Date / Time JOAQUINA Inhibitors Allergy Intermediate angioedema Verified 01/05/23 16:52 acetaminophen Allergy Intermediate Sleepiness Verified 01/05/23 16:52 [Tylenol-Codeine #3] codeine [Tylenol-Codeine #3] Allergy Intermediate Sleepiness Verified 01/05/23 16:52 hydrochlorothiazide [Dyazide] Allergy Intermediate Hyponatremi Verified 01/05/23 16:52 a lisinopril Allergy Intermediate TONGUE Verified 01/05/23 16:52 SWELLING tramadol Allergy Intermediate nausea Verified 01/05/23 16:52 triamterene [Dyazide] Allergy Intermediate Hyponatremi Verified 01/05/23 16:52 a Review of Systems Review of Systems: All systems reviewed & are unremarkable except as noted in HPI and below PMFSH Past Medical History Medical History Alcohol use disorder Atypical atrial flutter COPD (chronic obstructive pulmonary disease) COPD exacerbation Edema of both legs Hearing loss Hypertension associated with diabetes Hypertensive retinopathy of both eyes Hyponatremia Left wrist pain Macular degeneration Nicotine dependence Osteoarthritis Osteopenia Pneumonia Preoperative general physical examination Pseudophakia Sinus tachycardia Tachycardia Tobacco abuse Type 2 diabetes mellitus, without long-term current use of insulin Venous stasis ulcer Vitamin D deficiency Surgical History Surgical History History of appendectomy History of cataract removal with insertion of prosthetic lens Right eye only History of cholecystectomy History of right knee joint replacement (~2014) Family History Family History Father Hypertension Mother Hypertension Ovarian cancer Other Arthritis Diabetes mellitus Social History Social History Social History: The patient continues to smoke 1 pack a cigarettes per day. She drinks 2 highballs a night. She lives with her . He is the durable power personal injury attorney for healthcare. She has 2 children. 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 Code status full code Smoking packs per day: 0.5 Smoking cigarettes per day: 10.0 Years smoked: 40 Smoking pack-years: 20.00 Smoking status: Current every day smoker Tobacco type: cigarettes Second hand tobacco smoke exposure: Yes Alcohol intake: former Drinks per week: 2 Substance use: never Substance use type: does not use Lack of Transportation: No Lack of Food: Never True Current Housing: I Have Housing Concerned About Future Housing: No Difficulty Paying Gas/Electric Bills: No Difficulty Paying for Meds: No Currently Unemployed: No Education: High School Diploma/GED Difficulty w/ Childcare or Family Care: No Living arrangements: with family 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
[2023-01-05 17:12] LABS: Basophils Absolute Auto 0.07 K/mm3 (0.00-0.10); Basophils Percent Auto 0.8 % (0.0-1.0); Eosinophils Absolute Auto 0.03 K/mm3 (0.02-0.50); Eosinophils Percent Auto 0.3 % (1.0-6.0); Hematocrit 29.8 % (35.0-42.0); Hemoglobin 9.4 g/dL (11.7-13.8); Immature Granulocyte Absolute 0.04 K/mm3 (0.00-0.00); Immature Granulocyte Percent A 0.4 % (0.0-0.0); Lymphocytes Absolute Auto 1.56 K/mm3 (1.10-4.50); Mean Corpuscular HGB Conc 31.5 g/dL (32.0-36.0); Mean Corpuscular Hemoglobin 30.3 pg (27.0-31.0); Mean Corpuscular Volume 96.1 fL (78.0-102.0); Monocytes Absolute Auto 1.07 K/mm3 (0.10-0.90); Monocytes Percent Auto 11.6 % (2.0-11.0); Neutrophils Absolute Auto 6.4 K/mm3 (1.7-7.2); Neutrophils Percent Auto 69.9 % (50.0-70.0); Platelet Count Result 279 K/mm3 (150-420); Red Cell Distribution Width 16.5 % (11.6-14.4); White Blood Count 9.2 K/mm3 (4.8-10.8)
[2023-01-05 17:25] LABS: INR 1.3; Partial Thromboplastin Time 35.2 SEC (23.90-30.70)
[2023-01-05 17:27] LABS: Alanine Aminotransferase 19 U/L (14-59); Albumin Level 3.3 g/dL (3.4-5.0); Alkaline Phosphatase 114 U/L (46-116); Anion Gap 7 mmol/L (8-16); Aspartate Amino Transferase 24 U/L (15-37); Bilirubin,Total 0.3 mg/dL (0.00-1.00); Blood Urea Nitrogen 16 mg/dL (7-18); Carbon Dioxide 29 mmol/L (21-32); Chloride 100 mmol/L (98-108); Estimated Glomerular Filt Rate > 60; Glucose 120 mg/dL (70-99); Osmolality Calculated 284 mOsm/kg (285-295); Potassium 3.6 mmol/L (3.5-5.1); Sodium 136 mmol/L (136-145); Total Protein 6.8 g/dL (6.4-8.2)
[2023-01-05 17:32] LABS: Lactic Acid Reflex 1.5 mmol/L (0.4-2.0)
[2023-01-05 17:48] LABS: Influenza A QL RT-PCR Negative (Negative); Influenza B QL RT-PCR Negative (Negative); SARS-CoV-2 RNA PCR Positive (Negative)
--- NOTE | 2023-01-05 17:58 | PC.NURSE ---
patient straight cath for urine sample, RN at bedside for rectal exam.
[2023-01-05 18:01] LABS: Appearance Urine Clear (Clear); Bilirubin Urine Negative (Negative); Blood Urine Negative (Negative); Color Urine Yellow (Yellow); Glucose Urine UA Negative (Negative); Ketones Urine Negative (Negative); Leukocyte Esterase Ur Negative LEU/UL (Negative); Nitrate Urine Negative (Negative); Protein Urine Negative (Negative); Specific Grav Ur 1.015 (1.010-1.020)
[2023-01-05 18:06] LABS: Add Urine Microscopic? YES; Bacteria Urine Trace /hpf; RBC Urine 0-2 /hpf (0-2); Squamous Epithelial Cell Urine Few /hpf (Few); WBC Urine 0-3 /hpf (0-3)
[2023-01-05 18:31] LABS: Occult Blood Positive (Negative)
--- NOTE | 2023-01-05 19:10 | ADMGEN ---
This patient, Kelly Kaba, was admitted to 2nd Floor Room 206-1. Patient/family oriented to hospital policies and general routines including ID bracelet, bed and alarms, visiting hours, pain management, procedures, bathroom and other care routines, personal items, smoking policy, room service/diet, and visiting hours. Information on how to activate the Rapid Response Team has been discussed. Patient/Family are encouraged to report perceived risks to care and to ask questions if they do not understand what they are told or what they should do.
[2023-01-05] MEDS: RIVAROXABAN 10 MG TABLET 20 MG PO (21:06)
[2023-01-05] MEDS: ATORVASTATIN 40 MG TABLET PO (21:06)
[2023-01-05] MEDS: ALBUTEROL SULFATE (*SP) INHALER 2 PUFF INHALATION (21:06)
[2023-01-05] MEDS: OPTI-GEN TAB 1 TABLET PO (21:06)
[2023-01-05] MEDS: traZODone HCL 50 MG TABLET PO (21:07)
[2023-01-05 21:16] LABS: Glucose Point of Care 88 mg/dl (65-105)
[2023-01-06] VITALS: BP 152/68; PULSE 72; RESP 17; TEMP 36.9; O2SAT 97
--- NOTE | 2023-01-06 02:00 | PC.NURSE ---
Pt awake in bed, states she needs to go to toilet, states she attempted to use call light x2. Pt assisted to toilet, when back in bed education given production superintendent light use, pt able to return demonstration. Speech and mentation noted to be slow. Pt denies complaints.
[2023-01-06 05:14] LABS: Hematocrit 32.2 % (35.0-42.0); Hemoglobin 10.3 g/dL (11.7-13.8); Platelet Count Result 294 K/mm3 (150-420); Red Blood Count 3.32 M/mm3 (4.20-5.40); White Blood Count 9.5 K/mm3 (4.8-10.8)
[2023-01-06 05:35] LABS: Alanine Aminotransferase 22 U/L (14-59); Albumin Level 3.3 g/dL (3.4-5.0); Alkaline Phosphatase 115 U/L (46-116); Anion Gap 9 mmol/L (8-16); Aspartate Amino Transferase 20 U/L (15-37); Bilirubin,Total 0.5 mg/dL (0.00-1.00); Blood Urea Nitrogen 12 mg/dL (7-18); Calcium 9.1 mg/dL (8.5-10.1); Carbon Dioxide 29 mmol/L (21-32); Chloride 99 mmol/L (98-108); Estimated CRCL calculation 45 ml/min; Estimated Glomerular Filt Rate > 60; Glucose 108 mg/dL (70-99); Osmolality Calculated 284 mOsm/kg (285-295); Potassium 3.3 mmol/L (3.5-5.1); Sodium 137 mmol/L (136-145); Total Protein 6.9 g/dL (6.4-8.2)
[2023-01-06] MEDS: ALBUTEROL SULFATE (*SP) INHALER 2 PUFF INHALATION ×4 (05:56→20:30)
[2023-01-06] MEDS: SALMET XINAFT/FLUTIC PROPIN 250 MCG/50 MCG INH CAP 1 PUFF INHALATION ×2 (05:59→18:19)
[2023-01-06 08:00] VITALS: BP 156/72; PULSE 84; RESP 20; TEMP 36.1; O2SAT 95
--- NOTE | 2023-01-06 08:00 | PM.IMHP ---
H&P: HPI History of Present Illness Date/Time: 01/06/23 08:00 Chief Complaint: ams Narrative: this is a 77-year-old the meta presented to our emergency department with complaints altered mental status per her . Patient has a past medical history of alcohol use disorder, atypical AFib, COPD, edema of both legs, hypertension, diabetes, hyponatremia, nicotine dependence, osteoarthritis, osteopenia, sinus tachycardia , vitamin-D deficiency and history of a CVA. According to her she seen to be more confused since 7:00 a.m. yesterday morning. Patient does have a history of CVA and has been confused since her CVA but he notes that her confusion seems to have worsened yesterday . On admission patient's temperature was 101? WBC is 9.2, hemoglobin 9.4, hematocrit 29.8, platelets 279, sodium 136, potassium 3.6, BUN 16, creatinine 0.76, platelets 120 patient positive for COVID. CT of the head no new findings. Patient condition has improved today. Spoke with her he will feel more comfortable patient remained for 1 additional day for monitoring. Explained to him that she will need to be discharged tomorrow will keep patient for 1 additional day for monitoring. The patient denies SOB, CP, palpitation, extremity numbness, lightheadedness, dizziness, constipation, diarrhea, chills, or fever. Review of Systems Review of Systems: All systems reviewed & are unremarkable except as noted in HPI and below PMFSH Past Medical History Medical History Alcohol use disorder Atypical atrial flutter COPD (chronic obstructive pulmonary disease) COPD exacerbation Edema of both legs Hearing loss Hypertension associated with diabetes Hypertensive retinopathy of both eyes Hyponatremia Left wrist pain Macular degeneration Nicotine dependence Osteoarthritis Osteopenia Pneumonia Preoperative general physical examination Pseudophakia Sinus tachycardia Tachycardia Tobacco abuse Type 2 diabetes mellitus, without long-term current use of insulin Venous stasis ulcer Vitamin D deficiency Surgical History Surgical History History of appendectomy History of cataract removal with insertion of prosthetic lens Right eye only History of cholecystectomy History of right knee joint replacement (~2014) Family History Family History Father Hypertension Mother Hypertension Ovarian cancer Other Arthritis Diabetes mellitus Social History Social History Social History: The patient continues to smoke 1 pack a cigarettes per day. She drinks 2 highballs a night. She lives with her . He is the durable power kier operator for healthcare. She has 2 children. 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 Code status full code Smoking packs per day: 1 Smoking cigarettes per day: 20.0 Years smoked: 61 Smoking pack-years: 61.00 Smoking status: Current every day smoker Tobacco type: cigarettes Second hand tobacco smoke exposure: Yes Alcohol intake: current Drinks per week: 1 Substance use: never Substance use type: does not use Lack of Transportation: No Lack of Food: Never True Current Housing: I Have Housing Concerned About Future Housing: No Difficulty Paying Gas/Electric Bills: No Difficulty Paying for Meds: No Currently Unemployed: No Education: High School Diploma/GED Difficulty w/ Childcare or Family Care: No Living arrangements: with family 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
[2023-01-06 08:38] LABS: Glucose Point of Care 92 mg/dl (65-105)
[2023-01-06] MEDS: CHOLECALCIFEROL 1,000 UNITS TABLET 2000 UNITS PO (08:40)
[2023-01-06] MEDS: FLUTICASONE PROPIONATE 0.05% NA SPR 16 GM BTL (*BKC) 1 SPRAY NASAL (08:40)
[2023-01-06] MEDS: LOSARTAN POTASSIUM 50 MG TABLET 100 MG PO (08:41)
[2023-01-06] MEDS: SPIRONOLACTONE 25 MG TABLET 50 MG PO (08:41)
[2023-01-06] MEDS: ASPIRIN 81 MG ENTERIC TABLET PO (08:41)
[2023-01-06 08:42] VITALS: PULSE 84
[2023-01-06] MEDS: OPTI-GEN TAB 1 TABLET PO ×2 (08:42→16:38)
[2023-01-06] MEDS: AMIODARONE HCL 200 MG TABLET PO (08:42)
[2023-01-06] MEDS: POTASSIUM CHLORIDE 20 MEQ TABLET 40 MEQ PO (08:42)
[2023-01-06 09:33] VITALS: PULSE 80
[2023-01-06] MEDS: atenoloL 50 MG TABLET PO (09:33)
[2023-01-06 11:59] LABS: Glucose Point of Care 132 mg/dl (65-105)
[2023-01-06 15:33] VITALS: BP 141/76; PULSE 71; RESP 22; TEMP 36.5; O2SAT 95
[2023-01-06 16:38] LABS: Glucose Point of Care 120 mg/dl (65-105)
[2023-01-06] MEDS: RIVAROXABAN 10 MG TABLET 20 MG PO (16:38)
[2023-01-06 20:00] VITALS: PULSE 71; RESP 22; O2SAT 95
[2023-01-06] MEDS: traZODone HCL 50 MG TABLET PO (20:31)
[2023-01-06] MEDS: ATORVASTATIN 40 MG TABLET PO (20:31)
[2023-01-07] VITALS: BP 146/76; PULSE 101; RESP 18; TEMP 36.4; O2SAT 92
[2023-01-07 05:23] LABS: Hematocrit 29.4 % (35.0-42.0); Hemoglobin 9.3 g/dL (11.7-13.8); Mean Corpuscular HGB Conc 31.6 g/dL (32.0-36.0); Mean Corpuscular Hemoglobin 30.3 pg (27.0-31.0); Mean Corpuscular Volume 95.8 fL (78.0-102.0); Mean Platelet Volume 9.4 fl (9.2-11.8); Platelet Count Result 289 K/mm3 (150-420); Red Blood Count 3.07 M/mm3 (4.20-5.40)
[2023-01-07 05:34] LABS: Alanine Aminotransferase 20 U/L (14-59); Albumin Level 2.8 g/dL (3.4-5.0); Alkaline Phosphatase 98 U/L (46-116); Anion Gap 7 mmol/L (8-16); Aspartate Amino Transferase 24 U/L (15-37); Bilirubin,Total 0.5 mg/dL (0.00-1.00); Blood Urea Nitrogen 12 mg/dL (7-18); Calcium 8.6 mg/dL (8.5-10.1); Carbon Dioxide 28 mmol/L (21-32); Chloride 101 mmol/L (98-108); Estimated CRCL calculation 47 ml/min; Estimated Glomerular Filt Rate > 60; Glucose 116 mg/dL (70-99); Osmolality Calculated 282 mOsm/kg (285-295); Potassium 4.2 mmol/L (3.5-5.1); Sodium 136 mmol/L (136-145); Total Protein 7.1 g/dL (6.4-8.2)
[2023-01-07] MEDS: SALMET XINAFT/FLUTIC PROPIN 250 MCG/50 MCG INH CAP 1 PUFF INHALATION (05:45)
[2023-01-07] MEDS: ALBUTEROL SULFATE (*SP) INHALER 2 PUFF INHALATION (05:47)
[2023-01-07 08:00] VITALS: BP 115/69; PULSE 60; RESP 14; TEMP 36.4; O2SAT 98
--- NOTE | 2023-01-07 08:17 | PC.NURSE ---
Pt blood sugar is 116 this am per lab draw.
[2023-01-07] MEDS: LOSARTAN POTASSIUM 50 MG TABLET 100 MG PO (09:05)
[2023-01-07] MEDS: OPTI-GEN TAB 1 TABLET PO (09:05)
[2023-01-07 09:06] VITALS: PULSE 60
[2023-01-07] MEDS: CHOLECALCIFEROL 1,000 UNITS TABLET 2000 UNITS PO (09:06)
[2023-01-07] MEDS: atenoloL 50 MG TABLET PO (09:06)
[2023-01-07] MEDS: AMIODARONE HCL 200 MG TABLET PO (09:06)
[2023-01-07] MEDS: SPIRONOLACTONE 25 MG TABLET 50 MG PO (09:06)
[2023-01-07] MEDS: ASPIRIN 81 MG ENTERIC TABLET PO (09:07)
[2023-01-07] MEDS: FLUTICASONE PROPIONATE 0.05% NA SPR 16 GM BTL (*BKC) 1 SPRAY NASAL (09:07)
--- NOTE | 2023-01-07 11:10 | PC.NURSE ---
Pt discharged to home. RN gave discharge instructions to pt and spouse. Reviewed oxygen use at 2L/NC while active , reviewed safty policy with home O2. Medications reviewed, dosages, times, purpose and SE. Pt assisted to the family car via WC and assisted to get in.
[2023-01-07 11:17] VITALS: PULSE 60; RESP 14; O2SAT 95
[2023-01-07 12:00] LABS: Glucose Point of Care 181 mg/dl (65-105)
[2023-01-07 13:03] LABS: Glucose Point of Care 121 mg/dl (65-105)
--- NOTE | 2023-01-07 13:51 | PC.NURSE ---
Pt dischagred to home with [facility] from [place]. Discharge orders faxed to [facility]. Medication instruction regarding respiratory medications given to both pt and spouse. Pt and Spouse educated regarding S&S to report to PCP or come back to the ER if temp 100.5 or higher, increased SOB. Follow up appoint for 01/20/23 at [facility] [employer]. Pt and CG voiced understanding of all instructions.
--- NOTE | 2023-01-08 09:28 | PCCCNOTE ---
Faxed discharge information to [facility], discharge summary not available yet.
--- NOTE | 2023-01-09 14:40 | PC.NURSE ---
Spouse states they received and understood the discharge instructions. Spouse also states she's doing better than she did after her stroke .
--- NOTE | 2023-01-12 20:12 | PM.DS ---
DS: Admitting Diagnosis Discharge Date 01/07/23 Admitting Diagnosis confusion, COVID, Anemia DS: Discharge Diagnosis Discharge Diagnosis (1) COVID-19: Code(s): U07.1 - COVID-19 Status: Acute Assessment and Plan: asymptomatic continue to treat symptoms as they arise (2) Altered mental status: Code(s): R41.82 - Altered mental status, unspecified Status: Acute Assessment and Plan: stable at this time Follow up with primary care provider as needed (3) Anemia: Code(s): D64.9 - Anemia, unspecified Status: Acute Assessment and Plan: Stable at this time. Follow up with PCP as they will need to have hgb monitored (4) CVA (cerebral vascular accident): Code(s): I63.9 - Cerebral infarction, unspecified Status: Acute Assessment and Plan: Stable no s/s of anything acute rule out. DS: Summary Hospital Course Reason for hospitalization: Confusion, COVID- Asymptomatic Hospital Course: This is a 77 year old that has become more confused per family and was brought in although she has been confused since she had a stroke. Patient has greatly improved and was not having any distress noted and has remained a febrile. Mrs. Markham is Alert and somewhat orientated with confusion but back to her normal state. patient vitals on discharge. patient was treated with antipyretics, initially receive some IV fluids breathing treatments as needed no oxygen was indicated patient was placed in droplet isolation and she continued to improve. Patient is able to eat and drink without any difficulties with no nausea vomiting and/or diarrhea prior to discharge patient remained afebrile for the past 24 hours and was monitored for an additional 24 hours when she has remained stable. Patient will return home with home health patient's vitals on discharge was 115/69, pulse 60, respirations 14, temperature 97.6? Time Spent with Patient Time attestation: Total time spent providing and/or coordinating discharge services: Exam Narrative: GENERAL: This is a well-nourished, well-developed patient, in no apparent distress. HEAD: normocephalic, atraumatic. EYES: PERRL. Sclera clear/white. Vision is grossly intact. EARS: External ears normal NOSE: External nose normal THROAT: Mucous membranes moist, posterior pharynx clear. NECK: Neck supple CARDIOVASCULAR: Regular rate and rhythm RESPIRATORY: Clear to auscultation. Breath sounds equal bilaterally. GASTROINTESTINAL: Abdomen soft, non-tender, nondistended. Bowel sounds are active. SKIN: warm, intact with no suspicious lesions or rash, good texture and turgor. NEURO: awake, alert, to person and place which is her baseline per her . left-sided facial drooping due to a past CVA with slight cognitive impairment EXTREMITIES: Normal range of motion. No edema. Discharge Plan Discharge Attending physician on discharge: Dat Guillory Consulting providers: Mariah Beebe; Austin Alonzo; Robert Gautam Discharging Clinician: Angela Graham Anticipated Discharge Date/Time: 01/07/23 08:45 Patient Disposition: Home, Self-Care Activity: january shower Diet: diabetic Wound Care Instructions: follow printed instructions Discharge Instructions: Resume [facility]. Care Coordination has contacted them that you discharged today. Patient Instructions: Antibiotic Form, Albuterol (By breathing), Dementia (ED), Fall Prevention for Older Adults (DC), Weakness (DC), How to Use a Metered-Dose Inhaler and a Spacer (DC), COVID-19 (Coronavirus Disease 2019) (DC), COVID-19 and Chronic Health Conditions (DC) Stand Alone Forms: General Discharge Information Follow-up/Referrals: Angélica Horton NP [Primary Care Provider] - 01/20/23 10:15 am (Follow up in 7-10 days ) Discharge Medications: New albuterol sulfate [Proventil HFA] 90 mcg/actuation Hfa Aerosol Inhaler 2 puff inhalation
== END 2023-01-07 13:15 | disposition home or self-care (01) ==
LOC: CHSED 18:40 → CHS2ND 18:49
PROVIDERS: Nurse Practitioner; Admitting Provider Internal Medicine; Emergency Provider Emergency Medicine; PCP Nurse Practitioner Family; Visit Provider Internal Medicine
DX: U07.1 COVID-19 (principal); R41.82 Altered mental status, unspecified; I48.4 Atypical atrial flutter; I10 Essential (primary) hypertension; I87.2 Venous insufficiency (chronic) (peripheral); D64.9 Anemia, unspecified; J44.9 Chronic obstructive pulmonary disease, unspecified; E11.319 Type 2 diabetes mellitus with unspecified diabetic retinopathy without macular edema; E55.9 Vitamin D deficiency, unspecified; I69.319 Unspecified symptoms and signs involving cognitive functions following cerebral infarction; I69.392 Facial weakness following cerebral infarction; R19.5 Other fecal abnormalities; M85.80 Other specified disorders of bone density and structure, unspecified site; M19.90 Unspecified osteoarthritis, unspecified site; H35.30 Unspecified macular degeneration; F10.10 Alcohol abuse, uncomplicated; F17.210 Nicotine dependence, cigarettes, uncomplicated; Z96.651 Presence of right artificial knee joint; Z79.82 Long term (current) use of aspirin; Z96.1 Presence of intraocular lens
CPT/HCPCS: 36415; 70450; 71045; 80053; 81001; 82272; 82948; 83605; 85025; 85027; 85610; 85730; 87040; 87636; 93005; 99285; A9270; G0378

== ENCOUNTER 2023-01-20 11:07 | Outpatient (CLI) | payer MEDICARE, SELFPAY ==
[2023-01-20 11:20] LABS: Basophils Absolute Auto 0.06 K/mm3 (0.00-0.10); Basophils Percent Auto 0.5 % (0.0-1.0); Eosinophils Percent Auto 1.7 % (1.0-6.0); Hematocrit 28.8 % (35.0-42.0); Immature Granulocyte Absolute 0.08 K/mm3 (0.00-0.00); Immature Granulocyte Percent A 0.7 % (0.0-0.0); Lymphocytes Absolute Auto 2.33 K/mm3 (1.10-4.50); Lymphocytes Percent Auto 19.5 % (18.0-42.0); Mean Corpuscular HGB Conc 31.3 g/dL (32.0-36.0); Mean Corpuscular Hemoglobin 30.6 pg (27.0-31.0); Monocytes Percent Auto 7.5 % (2.0-11.0); Neutrophils Absolute Auto 8.4 K/mm3 (1.7-7.2); Neutrophils Percent Auto 70.1 % (50.0-70.0); Platelet Count Result 391 K/mm3 (150-420); Red Blood Count 2.94 M/mm3 (4.20-5.40); Red Cell Distribution Width 16.4 % (11.6-14.4); White Blood Count 11.9 K/mm3 (4.8-10.8)
[2023-01-20 11:36] LABS: Hemoglobin A1C 5.9 % (<5.7)
[2023-01-20 12:02] LABS: Alanine Aminotransferase 19 U/L (14-59); Albumin Level 3.5 g/dL (3.4-5.0); Alkaline Phosphatase 116 U/L (46-116); Anion Gap 8 mmol/L (8-16); Aspartate Amino Transferase 29 U/L (15-37); Bilirubin,Total 0.5 mg/dL (0.00-1.00); Blood Urea Nitrogen 21 mg/dL (7-18); Calcium 9.4 mg/dL (8.5-10.1); Carbon Dioxide 29 mmol/L (21-32); Chloride 102 mmol/L (98-108); Estimated Glomerular Filt Rate > 60; Glucose 108 mg/dL (70-99); Osmolality Calculated 292 mOsm/kg (285-295); Potassium 4.9 mmol/L (3.5-5.1); Sodium 139 mmol/L (136-145); Total Protein 6.7 g/dL (6.4-8.2)
== END 2023-01-20 11:08 | disposition home or self-care (01) ==
LOC: CHSLAB 11:10
PROVIDERS: PCP Nurse Practitioner Family; Visit Provider Nurse Practitioner Family
DX: E11.9 Type 2 diabetes mellitus without complications (principal); I10 Essential (primary) hypertension; D64.9 Anemia, unspecified
CPT/HCPCS: 36415; 80053; 83036; 85025

== ENCOUNTER 2023-03-10 13:49 | Outpatient (CLI) | payer MEDICARE, SELFPAY ==
--- NOTE | 2023-03-10 14:05 | ECG_ITS ---
Measurements Intervals [place] Rate: 57 P: IA: 0 QRS: -84 QRSD: 151 T: 20 QT: 479 QTc: 470 Interpretive Statements ATRIAL FIBRILLATION WITH SLOW VENTRICULAR RESPONSE LEFT AXIS DEVIATION [QRS AXIS < -30] RIGHT BUNDLE BRANCH BLOCK [120+ ms QRS DURATION, UPRIGHT V1, 40+ ms S IN I/aVL/V4/V5/V6] ABNORMAL ECG COMPARED TO ECG 01/05/2023 17:01:13 LEFT-AXIS DEVIATION NOW PRESENT Electronically Signed On 03-11-2023 11:50:42 CDT by Austin Alonzo M.D.
== END 2023-03-10 13:50 | disposition home or self-care (01) ==
LOC: CHSCARD 13:52
PROVIDERS: PCP Nurse Practitioner Family; Visit Provider Internal Medicine Cardiovascular Disease
DX: I48.4 Atypical atrial flutter (principal); I45.19 Other right bundle-branch block; R94.31 Abnormal electrocardiogram [ECG] [EKG]
CPT/HCPCS: 93005

== ENCOUNTER 2023-07-23 15:06 | Outpatient (CLI) | payer MEDICARE, SELFPAY ==
--- NOTE | 2023-07-23 15:14 | ECG_ITS ---
Measurements Intervals [place] Rate: 53 P: 89 WV: 231 QRS: 201 QRSD: 149 T: 66 QT: 498 QTc: 469 Interpretive Statements SINUS BRADYCARDIA WITH FIRST DEGREE AV BLOCK RIGHT BUNDLE BRANCH BLOCK CANNOT RULE OUT SEPTAL INFARCT, AGE INDETERMINATE BASELINE ARTIFACT- I, III, AVR, AVL, AVF ABNORMAL ECG COMPARED TO ECG 03/10/2023 14:16:39 SINUS BRADYCARDIA NOW PRESENT FIRST DEGREE AV BLOCK NOW PRESENT Electronically Signed On 07-23-2023 18:50:42 AGENCY SALES DEVELOPMENT ASSOCIATE by Eriberto Barone D.O.
== END 2023-07-23 15:07 | disposition home or self-care (01) ==
LOC: CHSCARD 15:09
PROVIDERS: PCP Nurse Practitioner Family; Visit Provider Internal Medicine Cardiovascular Disease
DX: I48.4 Atypical atrial flutter (principal); R00.1 Bradycardia, unspecified; I45.10 Unspecified right bundle-branch block; R94.31 Abnormal electrocardiogram [ECG] [EKG]
CPT/HCPCS: 93005

== ENCOUNTER 2023-07-27 11:05 | Emergency (ER) | payer MEDICARE, SELFPAY ==
[2023-07-27] VITALS (71 sets, daily range): BP systolic 104–157; BP diastolic 40–83; PULSE 31–60; RESP 10–23; TEMP 36.3–36.8; O2SAT 96–100
--- NOTE | ~2023-07-27 | XR_ITS ---
EXAMINATION: XR chest 1V portable DATE: 07/27/2023 11:20 INDICATION: Bradycardia. TECHNIQUE: A single frontal view of the chest was obtained. COMPARISON: Chest single view 01/05/2023 FINDINGS: There is no pneumonia, pleural effusion, or pneumothorax. The heart size is normal. IMPRESSION: 1. No acute cardiopulmonary disease. Reviewed, dictated and finalized at location A. RPRISE INFRASTRUCTURE ARCHITECT
--- NOTE | 2023-07-27 11:10 | ECG_ITS ---
Measurements Intervals [place] Rate: 34 P: 68 [place]: 196 QRS: 241 QRSD: 146 T: 46 QT: 547 QTc: 413 Interpretive Statements SLOW SINUS BRADYCARDIA RIGHT AXIS DEVIATION RIGHT BUNDLE BRANCH BLOCK ABNORMAL ECG COMPARED TO ECG 07/23/2023 15:25:25 HEART RATE HAS DECREASED Electronically Signed On 07-27-2023 12:56:38 ASSIGNMENT DESK ASSISTANT by Eriberto Barone D.O.
--- NOTE | 2023-07-27 11:11 | ED.WEAKNESS ---
HPI - Weakness General Chief complaint: Weakness Stated complaint: low heart rate Time Seen by Provider: 07/27/23 11:10 History of Present Illness HPI Narrative: Patient is a 77 year old female with history of prior CVA, afib/flutter, DM, HTN, COPD, ETOH abuse here with bradycardia from the clinic. Patient notes that she has been feeling weak for about a week or so. She denies any chest pain or shortness of breath. She denies any diarrhea or abdominal pain. She did see her senior product marketing manager, Dr. Barone for these symptoms on 07/23 and it appears that they started her on Amiodarone 200 mg daily for paroxysmal rapid rate a. flutter. She is on Eliquis. HR during that visit was in the 50s. She did get a call from Dr. Barone today and he decreased her Atenolol from 50 to 12.5. No cough, congestion, fever, chills. Related Data Home Medications Medication Instructions Recorded Confirmed vitamins A,C,E-ipim-dnntul 4,296 1 cap PO BID 08/12/19 07/27/23 mcg-226 mg-90 mg capsule (ICaps AREDS) cholecalciferol (vitamin D3) 50 50 mcg PO DAILY 06/04/20 07/27/23 mcg (2,000 unit) capsule losartan 50 mg tablet 50 mg PO DAILY 07/23/23 07/27/23 Allergies Allergy/AdvReac Type Severity Reaction Status Date / Time JOAQUINA Inhibitors Allergy Intermediate angioedema Verified 07/27/23 11:17 acetaminophen Allergy Intermediate Sleepiness Verified 07/27/23 11:17 [Tylenol-Codeine #3] codeine [Tylenol-Codeine #3] Allergy Intermediate Sleepiness Verified 07/27/23 11:17 hydrochlorothiazide [Dyazide] Allergy Intermediate Hyponatremi Verified 07/27/23 11:17 a lisinopril Allergy Intermediate TONGUE Verified 07/27/23 11:17 SWELLING tramadol Allergy Intermediate nausea Verified 07/27/23 11:17 triamterene [Dyazide] Allergy Intermediate Hyponatremi Verified 07/27/23 11:17 a cephalexin AdvReac Mild rash Verified 07/27/23 11:17 Review of Systems Review of Systems: All systems reviewed & are unremarkable except as noted in HPI and below PMFSH Past Medical History Medical History Alcohol use disorder Atypical atrial flutter COPD (chronic obstructive pulmonary disease) COPD exacerbation Edema of both legs Hearing loss Hypertension associated with diabetes Hypertensive retinopathy of both eyes Hyponatremia Left wrist pain Macular degeneration Nicotine dependence Osteoarthritis Osteopenia Pneumonia Preoperative general physical examination Pseudophakia Sinus tachycardia Tachycardia Tobacco abuse Type 2 diabetes mellitus, without long-term current use of insulin Venous stasis ulcer Vitamin D deficiency Surgical History Surgical History History of appendectomy History of cataract removal with insertion of prosthetic lens Right eye only History of cholecystectomy History of right knee joint replacement (~2014) Family History Family History Father Hypertension Mother Hypertension Ovarian cancer Other Arthritis Diabetes mellitus Social History Social History Social History: Patient lives with her . He is the durable power civil rights attorney for healthcare. She has 2 children. She is a retired [employer] for [employer]. Code status full code Smoking packs per day: 0.5 Smoking cigarettes per day: 10.0 Years smoked: 61 Smoking pack-years: 30.50 Smoking status: Current every day smoker Tobacco type: cigarettes Second hand tobacco smoke exposure: Yes Alcohol intake: former Substance use: never Substance use type: does not use Lack of Transportation: No Lack of Food: Never True Current Housing: I Have Housing Concerned About Future Housing: No Difficulty Paying Gas/Electric Bills: No Difficulty Paying for Meds: No Currently Unemployed: No Education: High School Diploma/GED Susi
[2023-07-27 11:28] LABS: Glucose Point of Care 112 mg/dl (65-105)
[2023-07-27 11:28] LABS: Basophils Absolute Auto 0.04 K/mm3 (0.00-0.10); Basophils Percent Auto 0.5 % (0.0-1.0); Eosinophils Absolute Auto 0.13 K/mm3 (0.02-0.50); Eosinophils Percent Auto 1.6 % (1.0-6.0); Hemoglobin 7.3 g/dL (11.7-13.8); Immature Granulocyte Absolute 0.03 K/mm3 (0.00-0.00); Immature Granulocyte Percent A 0.4 % (0.0-0.0); Lymphocytes Absolute Auto 2.08 K/mm3 (1.10-4.50); Lymphocytes Percent Auto 25.8 % (18.0-42.0); Mean Corpuscular HGB Conc 29.2 g/dL (32.0-36.0); Mean Corpuscular Hemoglobin 23.1 pg (27.0-31.0); Mean Corpuscular Volume 79.1 fL (78.0-102.0); Mean Platelet Volume 9.3 fl (9.2-11.8); Monocytes Absolute Auto 0.57 K/mm3 (0.10-0.90); Monocytes Percent Auto 7.1 % (2.0-11.0); Neutrophils Absolute Auto 5.2 K/mm3 (1.7-7.2); Neutrophils Percent Auto 64.6 % (50.0-70.0); Platelet Count Result 417 K/mm3 (150-420); Red Blood Count 3.16 M/mm3 (4.20-5.40); Red Cell Distribution Width 18.3 % (11.6-14.4); White Blood Count 8.1 K/mm3 (4.8-10.8)
[2023-07-27 11:44] LABS: INR 1.1; Partial Thromboplastin Time 31.1 SEC (23.90-30.70); Prothrombin Time 12.4 Seconds (9.50-12.10)
[2023-07-27 11:52] LABS: Alanine Aminotransferase 25 U/L (14-59); Albumin Level 3.3 g/dL (3.4-5.0); Alkaline Phosphatase 131 U/L (46-116); Anion Gap 10 mmol/L (8-16); Aspartate Amino Transferase 17 U/L (15-37); Bilirubin,Total 0.3 mg/dL (0.00-1.00); Blood Urea Nitrogen 45 mg/dL (7-18); Calcium 9.3 mg/dL (8.5-10.1); Carbon Dioxide 27 mmol/L (21-32); Chloride 104 mmol/L (98-108); Estimated CRCL calculation 22 ml/min; Estimated Glomerular Filt Rate 35; Glucose 112 mg/dL (70-99); Magnesium 2.3 mg/dL (1.8-2.4); NT Pro B Type Natriuretic Pept 1059 pg/mL (0-450); Osmolality Calculated 304 mOsm/kg (285-295); Potassium 4.8 mmol/L (3.5-5.1); Sodium 141 mmol/L (136-145); Troponin I 13.9 ng/L (0.00-60.4)
--- NOTE | 2023-07-27 12:40 | PC.NURSE ---
PT IS SLEEPING ON STRETCHER IN EXAM ROOM WITH AT BEDSIDE. PT AROUSES TO VERBAL STIMULI. PT CONTINUES TO DENY ANY NEEDS OR COMPLAINTS. PT IS AWAITING ON RETURN CALL FROM [facility] AT THIS TIME. WILL CONTINUE TO MONITOR.
[2023-07-27 14:50] LABS: Troponin I 13.6 ng/L (0.00-60.4)
--- NOTE | 2023-07-27 18:36 | PC.NURSE ---
SPOKE WITH GILLES, PUNCHER AND FASTENER AT [facility]. NO ROOM ASSIGNMENT AT THIS TIME. NO CHANGE IN PT STATUS. HR REMAINS IN THE 50'S AT THIS TIME, BP STABLE. PT COLOR HAS IMPROVED. PT REPORTS SHE IS FEELING MUCH BETTER THAN WHEN SHE CAME IN. WILL CONTINUE TO MONITOR.
[2023-07-27] MEDS: SODIUM CHLORIDE 0.9% IV 1,000 ML 150 ML IV CONT (18:50)
--- NOTE | 2023-07-27 19:00 | PC.NURSE ---
patient report received from ALICE Harkins. Patient awake and alert resting on stretcher with VSS. Patient offered food/drink at this time although patient refused. patient denies pain and states she is comfortable. RN monitoring. patient awaiting bed at transfer facility.
[2023-07-27 19:02] LABS: Appearance Urine Clear (Clear); Bilirubin Urine Negative (Negative); Blood Urine Trace-Intact (Negative); Color Urine Light Yellow (Yellow); Glucose Urine UA Negative (Negative); Ketones Urine Negative (Negative); Leukocyte Esterase Ur 1+ LEU/UL (Negative); Nitrate Urine Negative (Negative); Protein Urine Negative (Negative); Specific Grav Ur 1.015 (1.010-1.020); Urobilinogen Urine 0.2 mg/dL (0.2-1.0)
[2023-07-27 19:07] LABS: Add Urine Microscopic? YES; Bacteria Urine 1+ /hpf; Squamous Epithelial Cell Urine Few /hpf (Few)
[2023-07-27 21:16] LABS: Glucose Point of Care 77 mg/dl (65-105)
--- NOTE | 2023-07-30 13:49 | PC.NURSE ---
urine culture reviewed, no growth noted
== END 2023-07-27 21:29 | disposition short-term general hospital (02) ==
PROVIDERS: Emergency Provider Student in an Organized Health Care Education/Training Program; PCP Nurse Practitioner Family
DX: R00.1 Bradycardia, unspecified (principal); N39.0 Urinary tract infection, site not specified; D64.9 Anemia, unspecified; I48.91 Unspecified atrial fibrillation; E11.9 Type 2 diabetes mellitus without complications; I10 Essential (primary) hypertension; J44.9 Chronic obstructive pulmonary disease, unspecified; F17.210 Nicotine dependence, cigarettes, uncomplicated; Z86.73 Personal history of transient ischemic attack (TIA), and cerebral infarction without residual deficits
CPT/HCPCS: 36415; 71045; 80053; 81001; 82948; 83735; 83880; 84484; 85025; 85610; 85730; 87086; 93005; 96361; 96365; 99285; J0696; J7030

== ENCOUNTER 2023-07-27 22:38 | Inpatient (IN) | payer MEDICARE, SELFPAY ==
--- NOTE | ~2023-07-27 | XR_ITS ---
EXAMINATION: XR chest 1V portable DATE: 07/29/2023 12:46 INDICATION: Fluid overload. TECHNIQUE: A single frontal view of the chest was obtained. COMPARISON: Chest single view 07/27/2023 FINDINGS: There is no pneumonia, pleural effusion, or pneumothorax. The heart size is normal. IMPRESSION: 1. No acute cardiopulmonary disease. Reviewed, dictated and finalized at location A. ANDRY TECHNICIAN
--- NOTE | ~2023-07-27 | XR_ITS ---
EXAMINATION: XR chest 2V DATE: 08/02/2023 08:04 INDICATION: Atelectasis. TECHNIQUE: Frontal and lateral views of the chest were obtained. COMPARISON: Chest 2 views 07/31/2023, chest CT 02/18/2021 FINDINGS: There are airspace opacities at left lung base. There are small pleural effusions. No pneum othorax. The heart size is normal. There is an electronic implant in the heart. IMPRESSION: 1. Airspace opacities at left lung base with interval improvement, consistent with atelectasis versus pneumonia. 2. Small pleural effusions. Reviewed, dictated and finalized at location A. ANALYST DEVELOPER IMPRESSION: 1. Airspace opacities at left lung base with interval improvement, consistent w ith atelectasis versus pneumonia. 2. Small pleural effusions.
--- NOTE | ~2023-07-27 | XR_ITS ---
EXAMINATION: XR chest 1V portable DATE: 07/30/2023 16:03 INDICATION: Pacemaker insertion TECHNIQUE: frontal view of the chest was obtained. COMPARISON: Chest radiograph dated 07/29/23 FINDINGS: Airspace opacities in the left mid and lower lung zone with sharply defined oblique margin at the med ial mid lung zone. There is both elevation of the left hemidiaphragm as well as afterward shift of th e heart and mediastinum consistent with significant associated volume loss. Right lung remains clear. No pneumothorax or right-sided pleural effusion. Heart size is normal. New likely phleboliths intrav entricular pacemaker projecting over the heart. Partially visualized lumbar dextroscoliosis. IMPRESSION: 1. Opacities in the left mid and lower lung zones with significant associated volume loss and favor a telectasis including at least partial left lower lobar collapse over pneumonia. Reviewed, dictated and finalized at location A. [employer] IMPRESSION: 1. Opacities in the left mid and lower lung zones with significant associated v olume loss and favor atelectasis including at least partial left lower lobar co llapse over pneumonia.
--- NOTE | ~2023-07-27 | XR_ITS ---
EXAMINATION: XR chest 2V DATE: 07/31/2023 14:08 INDICATION: Pacer placement. TECHNIQUE: Frontal and lateral views of the chest were obtained. COMPARISON: Chest single view 07/30/2023, 07/29/23, chest CT 02/18/2021 FINDINGS: There is volume loss of left hemithorax with leftward shift the mediastinum. There are airs pace opacities in left mid and lower lung zones. No pleural effusion or pneumothorax. The heart size is normal. An implant overlies the heart. IMPRESSION: 1. Worsened volume loss of left hemithorax with worsened airspace opacities in left mid and lower alvaro g zones, consistent with atelectasis which may be secondary to mucous plugging. Reviewed, dictated and finalized at location A. [employer] IMPRESSION: 1. Worsened volume loss of left hemithorax with worsened airspace opacities in left mid and lower lung zones, consistent with atelectasis which may be seconda ry to mucous plugging.
[2023-07-27 10:00] VITALS: BP 151/58; PULSE 53; RESP 18; TEMP 36.4; O2SAT 100
--- NOTE | 2023-07-27 22:03 | PC.NURSE ---
This patient, Kelly Kaba, was admitted to IMU Room 200-01. Patient/family oriented to hospital policies and general routines including ID bracelet, bed and alarms, visiting hours, pain management, procedures, bathroom and other care routines, personal items, smoking policy, room service/diet, and visiting hours. Information on how to activate the Rapid Response Team has been discussed. Patient/Family are encouraged to report perceived risks to care and to ask questions if they do not understand what they are told or what they should do.
--- NOTE | 2023-07-27 22:39 | PM.IMHP ---
H&P: HPI History of Present Illness Date/Time: 07/27/23 22:45 Chief Complaint: Bradycardia. Narrative: This is a pleasant 77-year-old female smoker with history of stroke with residual right-sided facial droop, atrial fibrillation/flutter, hypertension, chronic obstructive pulmonary disease, type 2 diabetes mellitus, and alcohol use disorder (she denies alcohol in the last several weeks) who is being directly admitted to the IMU from the ED at the [facility] for further evaluation and Cardiology consultation after she was found to be bradycardic. The patient provides the following history. She had a routine appointment with her primary care provider and Dr. Barone today. She reported feeling weak and fatigued for about a week or so and office notes indicate that she complained of feeling lightheaded and that she would fall asleep while in the examination room. She was found to be bradycardic and she was sent to the ED for evaluation. On arrival to the outside ED, she was found to have heart rate in the 30s with stable blood pressures. She was not and has not had any active chest pain or shortness of breath and she has remained stable since that time. Looking through her chart, looks like she was recently started on amiodarone 200 mg daily for paroxysmal atrial flutter/fibrillation and she is also on atenolol 50 mg daily. Those medications are currently on hold and she is being transferred to [place] for consultation with her pet supplies salesperson, Dr. Barone. At the time my evaluation she is resting comfortably and has no current complaints. Of note she was unable to urinate at the outside facility and a Aleman catheter has been inserted. She reports that at time she has difficulties urinating but she has never had issues with retention to her knowledge. She denies fever, chills, sweats, nausea, vomiting, diarrhea, and dysuria. She also denies syncope or near syncope. On exam she is wearing a cardiac event monitor but does not remember why she is wearing it. She denies that she could have taken any extra medications than what is prescribed to her. Review of Systems Review of Systems: Twelve systems were reviewed. She reports chronic right-sided facial droop and slurred speech. No known history of thyroid disease. No longer on medication for diabetes after weight loss. Except as documented, all other systems were reviewed and are negative. [facility] Past Medical History Medical History (Updated 07/27/23 @ 22:51 by Pepper Faye PA-C) Alcohol use disorder Atypical atrial flutter Chronic anticoagulation Chronic obstructive pulmonary disease Hypertension associated with diabetes Hypertensive retinopathy of both eyes Macular degeneration Nicotine dependence Osteoarthritis Osteopenia Pseudophakia Tobacco abuse Type 2 diabetes mellitus, without long-term current use of insulin Venous stasis ulcer Vitamin D deficiency Surgical History Surgical History (Updated 07/27/23 @ 22:42 by Pepper Faye PA-C) History of appendectomy History of cataract removal with insertion of prosthetic lens Right eye only History of cholecystectomy History of right knee joint replacement (2014) Family History Family History Father Hypertension Mother Hypertension Ovarian cancer Other Arthritis Diabetes mellitus Social History Social History (Updated 07/27/23 @ 23:21 by Pepper Faye PA-C) Social History: Surrogate medical decision maker: Tomas Kaba, spouse. Code status: Full code. Smoking packs per day: 0.75 Smoking cigarettes per day: 15.0 Years smoked: 63 Smoking pack-years: 47.25 Smoking status: Current every day smoker Tobacco type: cigarettes Second hand tobacco smoke exposure: Yes Alcohol intake: current Alcohol use details: No alcohol in 2 weeks as of 07/27/2023. Substance use: never Substance use type: does not use Lack of Transpo
[2023-07-27 23:08] LABS: Anion Gap 10 mmol/L (8-16); Blood Urea Nitrogen 32 mg/dL (7-17); Carbon Dioxide 20 mmol/L (22-30); Chloride 110 mmol/L (98-107); Estimated Glomerular Filt Rate 54; Glucose 76 mg/dL (65-110); Magnesium 2.1 mg/dL (1.6-2.3); Potassium 4.3 mmol/L (3.4-5.0); Sodium 140 mmol/L (137-145)
[2023-07-27 23:36] VITALS: BP 145/52; PULSE 51; RESP 18; TEMP 36.4; O2SAT 100
[2023-07-28] VITALS (29 sets, daily range): BP systolic 88–169; BP diastolic 34–54; PULSE 33–64; RESP 14–18; TEMP 36.2–36.8; O2SAT 97–100; BMI 22.1
[2023-07-28] MEDS: ATORVASTATIN 40 MG TABLET BY MOUTH ×2 (00:10→20:35)
--- NOTE | 2023-07-28 07:53 | PM.CNCAR ---
Assessment and Plan Assessment and plan (1) Paroxysmal atrial fibrillation: Code(s): I48.0 - Paroxysmal atrial fibrillation Status: Acute Assessment and Plan: In sinus rhythm. HR did go as low at 38 bpm. Stopped Atenolol. Decrease Amiodarone 50 mg daily to maintain sinus rhythm. If HR drops with it, then will stop Amiodarone completely. [id number] 5. On Xarelto. (2) Bradycardia: Code(s): R00.1 - Bradycardia, unspecified Status: Inactive Assessment and Plan: Monitor on telemetry. (3) Anemia: Code(s): D64.9 - Anemia, unspecified Status: Acute Assessment and Plan: Workup as per hospitalist. If bleeding, may hold Xarelto. (4) Hypertension associated with diabetes: Code(s): E11.59 - Type 2 diabetes mellitus with other circulatory complications; I10 - Essential (primary) hypertension Status: Acute Assessment and Plan: Stable. (5) Nicotine dependence: Qualifiers: Nicotine product type: cigarettes Substance use status: uncomplicated Qualified Code(s): F17.210 - Nicotine dependence, cigarettes, uncomplicated Code(s): F17.200 - Nicotine dependence, unspecified, uncomplicated Status: Acute Assessment and Plan: Counseled regarding smoking cessation. (6) Urinary retention: Code(s): R33.9 - Retention of urine, unspecified Status: Acute Assessment and Plan: Workup as per hospitalist. History of Present Illness History of Present Illness Consult date/time: 07/28/23 07:53 Reason For Visit: Bradycardia Narrative: 77 yr old woman who is my regular cardiology patient presents to [facility] for fatigue then transferred to [place] for bradycardia. She has a history of paroxysmal atrial fib/flutter, DM, hypertension (allergic to Unruly inhibitors such as Lisinopril, HCTZ), COPD, smoking, alcohol abuse, covid infection on 01/05/23. In [facility] her HR was 38 bpm in sinus rhythm. Amiodarone and Atenolol discontinued and her HR as been in 50's bpm range. She had a confusion and believed to be due to a stroke in November 2022.? She has fatigue. Reports she can walk 1 block then has BOLAÑOS.? She smokes 1/2 ppd. Swelling of legs resolved.? Denies palpitations, chest pain, sob, orthopnea, PND, dizziness. Cardiovascular Procedures Echo/MUGA:: 09/02/22 Echo: EF 65-70%, mod LVH, grade I diastolic dysfunction, mod LAE, trace TR/PI. 06/05/20 Echo: EF 60-65%, mod LVH, diastolic dysfunction (E/e' 16), mild LAE, mild TR, RVSP 44 mmHg. Electrophysiology:: 03/10/23 EKG: Atrial fibrillation at 57 bpm, RBBB, QTc 470 ms. 01/05/23 EKG: Atrial fibrillation at 75 bpm, RAD, RBBB, QTc 475 ms. 11/13/22 EKG: Atrial fib/flutter at 75 bpm, RBBB. 09/10/22 EKG: Sinus rhythm, RBBB. 02/18/21 EKG: Atrial flutter at 97 bpm, RBBB, LAFB. 06/13/20 Holter: Atrial flutter at 54-124 bpm; average 103 bpm, 1,420 PVC's, 5 couplets and 3 trigeminy, 3.1 second pause at 4:04 am. 06/05/20 EKG: Atrial flutter at 117 bpm, RBBB. Stress Tests:: 12/04/22 Carotid duplex: <50% ICA stenosis bilaterally. 09/10/22 CT neck: 20% right ICA, 35% left ICA, prox ostial left subclavian 80%, 40 bilateral vertebral artery stenosis. 09/10/22 MRI brain: Severe chronic microvascular ischemic disease. 02/18/21 CT chest: No pulm embolism. Review of Systems Review of Systems: All systems reviewed & are unremarkable except as noted in HPI and below Constitutional: Constitutional: Reports as per HPI, Denies chills, Reports fatigue and Denies fever(s) Cardiovascular: Cardiovascular: Reports as per HPI, Denies chest pain and Denies irregular heart rhythm Respiratory: Respiratory: Reports as per HPI and Denies dyspnea Gastrointestinal: Gastrointestinal: Reports as per HPI and Denies abdominal pain Genitourinary: Genitourinary: Reports as per HPI Musculoskeletal: Musculoskeletal: Reports as per HPI Neurologic: Reports as per HPI, Denies dizziness and Denies syncope [facility] Past Medical History Medical
[2023-07-28 08:39] LABS: Hematocrit 25.8 % (37.0-47.0); Hemoglobin 7.5 g/dL (12.0-15.0); Mean Corpuscular HGB Conc 29.1 g/dl (32-36); Mean Corpuscular Hemoglobin 22.9 pg (26-34); Mean Corpuscular Volume 78.7 fl (80-100); Mean Platelet Volume 9.3 fl (7.4-10.4); Platelet Count Result 413 k/mm3 (150-375); Red Blood Count 3.28 M/mm3 (4.2-5.4); Red Cell Distribution Width 18.6 % (11.5-14.5); White Blood Count 8.6 K/mm3 (4.5-10.0)
[2023-07-28 08:43] LABS: Glucose Point of Care 133 mg/dl (65-105)
[2023-07-28 08:43] LABS: Glucose Point of Care 68 mg/dl (65-105)
[2023-07-28] MEDS: CHOLECALCIFEROL 1,000 UNITS TABLET 2000 UNITS PO (08:51)
[2023-07-28] MEDS: AMIODARONE HCL 50 MG TABLET PO (08:51)
[2023-07-28] MEDS: LOSARTAN POTASSIUM 50 MG TABLET PO (08:51)
[2023-07-28 08:55] LABS: Iron 27 ug/dL (37-170)
[2023-07-28 09:00] LABS: Transferrin 300 mg/dL (206-381)
[2023-07-28 09:05] LABS: Percent Iron Saturation 7 % (20-50)
[2023-07-28 09:55] LABS: Folic Acid 18.6 ng/mL (2.76->20)
--- NOTE | 2023-07-28 10:51 | ECG_ITS ---
Measurements Intervals [place] Rate: 35 P: IA: 0 QRS: 261 QRSD: 136 T: 15 QT: 562 QTc: 434 Interpretive Statements SLOW JUNCTIONAL RHYTHM RIGHT BUNDLE BRANCH BLOCK ABNORMAL ECG COMPARED TO ECG 07/28/2023 11:07:25 JUNCTIONAL RHYTHM NOW PRESENT Electronically Signed On 07-28-2023 11:29:19 [employer]LL[employer] by Eriberto Barone D.O.
[2023-07-28] MEDS: SODIUM CHLORIDE 0.9% IV 500 ML 75 ML IV CONT (11:25)
[2023-07-28] MEDS: ATROPINE SULFATE 1 MG/10 ML SYRINGE 0.5 MG IV PUSH (11:45)
[2023-07-28] MEDS: INSULIN ASPART (*BKC) 100 UNITS/ML SUB-Q (12:03)
[2023-07-28 12:20] LABS: Glucose Point of Care 259 mg/dl (65-105)
--- NOTE | 2023-07-28 14:02 | PM.IMPN ---
Progress Note: A&P Assessment and Plan (1) Bradycardia: Code(s): R00.1 - Bradycardia, unspecified Status: Inactive Assessment and Plan: Recently started on amlodipine 200 mg daily; also on atenolol 50 mg daily though that was decreased. Dr. Barone has been consulted and his input is appreciated. Dr. Garcia decreased patient's amlodipine 250 mg daily. Atenolol continue to hold. TSH within normal limits. (2) Urinary retention: Code(s): R33.9 - Retention of urine, unspecified Status: Acute Assessment and Plan: Patient had difficulties urinating at the outside facility and was found to be retaining greater than 400 cc of urine. Continue Aleman catheter for now. Will need voiding trial prior to discharge. (3) Anemia: Code(s): D64.9 - Anemia, unspecified Status: Acute Assessment and Plan: Patient was found to have a hemoglobin of 7.3 at [facility]. Repeat CBC with hemoglobin of 7.5. Xarelto on hold. Anemia labs ordered and revealed severe iron deficiency anemia. Will do 3 days of iron infusions. Daily iron supplement. Monitor CBC daily. Occult stool ordered. (4) Paroxysmal atrial fibrillation: Code(s): I48.0 - Paroxysmal atrial fibrillation Status: Acute Assessment and Plan: Currently in a sinus bradycardia. Amlodipine decreased to 50 mg daily. Atenolol on hold. Xarelto on hold due to anemia (5) Chronic obstructive pulmonary disease: Code(s): J44.9 - Chronic obstructive pulmonary disease, unspecified Status: Acute Assessment and Plan: No acute evidence to suggest exacerbation. Continue maintenance inhalers and p.r.n. nebulizers. (6) Tobacco abuse: Code(s): Z72.0 - Tobacco use Status: Acute Assessment and Plan: Smoking cessation is imperative and was discussed. (7) Alcohol use disorder: Status: Acute Assessment and Plan: Patient denies ever having signs or symptoms of alcohol withdrawal or withdrawal seizures. She has not had alcohol for 2 weeks. No signs of withdrawal. (8) Type 2 diabetes mellitus, without long-term current use of insulin: Qualifiers: Diabetes mellitus complication status: with ophthalmic complications Diabetes mellitus complication detail: with diabetic retinopathy Diabetic retinopathy severity: with unspecified retinopathy severity Diabetes mellitus macular edema: macular edema presence unspecified Laterality: unspecified laterality Qualified Code(s): E11.319 - Type 2 diabetes mellitus with unspecified diabetic retinopathy without macular edema Code(s): E11.9 - Type 2 diabetes mellitus without complications Status: Acute Assessment and Plan: Random glucose was 112, recent hemoglobin A1c was 5.9%. Hold metformin for now. Initiate sliding scale insulin, Accu-Cheks, and hypoglycemic protocol. Subjective Date/time seen: 07/28/23 14:02 Interval history: Patient is very thin and appears to be overall very weak. Will order PT and OT for the patient. She continues to be bradycardic. She was found to have a hemoglobin of 7.3 at [facility] and repeat was 7.5. Will hold her Xarelto for now. Anemia labs revealing severe iron deficiency anemia. Iron infusions will be given over the next 3 days. Continue to monitor H&H. Patient states that she does not feel particularly different. Her feels as if she has been more weak over the past several days. This could have been from her bradycardia or anemia. She denies any chest pain or heart palpitations, shortness of breath, dizziness, lightheadedness or pain. Cardiology following with appreciate their recommendations. Exam Narrative: GENERAL: Comfortable, no acute distress, thin HENMT: moist mucous membranes EYES: EOM intact b/l NECK: no lymphadenopathy RESPIRATORY: clear to auscultation CARDIO: regular rhythm, bradycardic GI:
[2023-07-28] MEDS: DOPamine 400 MG/D5W 250 ML 400 MG/250 ML BAG 5.79 MG IV CONT (16:27)
--- NOTE | 2023-07-28 17:24 | PM.CNCAR ---
Assessment and Plan Assessment and plan (1) Symptomatic bradycardia: Code(s): R00.1 - Bradycardia, unspecified Status: Acute Assessment and Plan: Patient presents with symptomatic sinus bradycardia and intermittent junctional rhythm. Has been on low-dose beta-link and amiodarone for paroxysmal atrial fibrillation. Options are to discontinue these and see how she tolerates recurrent AFib, but she had tachycardia in the past so the best option is to place a pacemaker for tachy-jordon syndrome. Discussed pacemaker implant with patient and and they are interested in proceeding with pacemaker implant. --last dose of Xarelto was Thursday so she should be okay for pacemaker implant on Thursday. --NPO after midnight for pacemaker implant. (2) Junctional rhythm: Code(s): I49.8 - Other specified cardiac arrhythmias Status: Acute Assessment and Plan: Intermittent junctional rhythm noted. 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 (5) H/O: stroke: Code(s): Z86.73 - Personal history of transient ischemic attack (TIA), and cerebral infarction without residual deficits Status: Acute Assessment and Plan: History of stroke, with persistent confusion. (6) Anemia, iron deficiency: Code(s): D50.9 - Iron deficiency anemia, unspecified Status: Acute Assessment and Plan: Longstanding microcytic anemia, slowly progressing. Noted to be iron deficient this admission. --GI evaluation? Iron infusion? --preferable to resume Xarelto after pacer implant due to CHADS2 Vasc score of 6 and high risk of recurrent stroke. History of Present Illness History of Present Illness Consult date/time: 07/28/23 17:24 Reason For Visit: Bradycardia Narrative: Kelly Kaba is a 77-year-old female whom we are asked to see at the request of Dr. Barone for advice and opinion regarding bradycardia and need for pacemaker implant, in consultation. She is followed by Dr. Barone far paroxysmal atrial fib/flutter, for which she takes amiodarone 100 mg daily, atenolol 12.5 mg daily and Xarelto. She also has hypertension, diabetes, COPD, tobacco use, and alcohol abuse. She has had trouble with confusion thought to be related to a stroke in November 2022. The patient can not give much history, so history was obtained from EMR and her . According to her , she has been sleeping 10-12 Hrs/night but in last 2 weeks has also been napping more, and using cane more, has more trouble walking, uses pineda for balance, more wobbly than normal and weaker than usual. When she saw Dr. Barone a week ago her heart rate was 57 but when she saw her PCP Angélica Horton yesterday her heart rate was in the 30s and she was admitted. She has sinus bradycardia and some junctional rhythm has been started on dopamine at 3 mics per kilos per minute. No CHF. No chest pain or shortness of breath, no syncope, or edema. Last dose of Xarelto was Thursday night. Last echo in 2019 showed normal LV systolic function EF 60-65% with diastolic dysfunction. No history of clavicular fracture. Review of Systems Constitutional: Constitutional: Reports fatigue, Denies fever(s), Reports lethargy and Reports weakness Eyes: Eyes: Reports no additional eye complaints ENT: Denies epistaxis Cardiovascular: Cardiovascular: Denies chest pain, Denies pedal edema, Denies lightheadedness and Denies dyspnea Respiratory: Respiratory: Denies chest congestion and Denies dyspnea Gastrointestinal: Gastrointestinal: Denies abdominal pain and Denies hematochezia Genitour
[2023-07-28 17:27] LABS: Glucose Point of Care 153 mg/dl (65-105)
--- NOTE | 2023-07-28 19:43 | PC.NURSE ---
1600 - CALLED [facility]- SPOKE WITH FRANCES JENKINS AND ASKED HER IF PT TOOK XARELTO ; SHE STATED PT DID NOT HAVE ANY PO MEDS HOME MEDS SINCE THE TIME SHE ARRIVED IN ED-10AM TO 9PM; PT THEN TRANSFERRED TO [facility]
[2023-07-28 20:28] LABS: Glucose Point of Care 169 mg/dl (65-105)
[2023-07-29] VITALS (26 sets, daily range): BP systolic 104–177; BP diastolic 42–75; PULSE 38–61; RESP 15–19; TEMP 36.2–37.1; O2SAT 90–100
[2023-07-29 05:33] LABS: Hematocrit 25.1 % (37.0-47.0); Hemoglobin 7.6 g/dL (12.0-15.0); Mean Corpuscular HGB Conc 30.3 g/dl (32-36); Mean Corpuscular Hemoglobin 23.1 pg (26-34); Mean Corpuscular Volume 76.3 fl (80-100); Mean Platelet Volume 9.8 fl (7.4-10.4); Platelet Count Result 457 k/mm3 (150-375); Red Blood Count 3.29 M/mm3 (4.2-5.4); Red Cell Distribution Width 18.5 % (11.5-14.5); White Blood Count 13.4 K/mm3 (4.5-10.0)
[2023-07-29 05:41] LABS: Alanine Aminotransferase 18 U/L (6-35); Albumin Level 3.7 g/dL (3.5-5.1); Alkaline Phosphatase 100 U/L (38-126); Anion Gap 10 mmol/L (8-16); Aspartate Amino Transferase 25 U/L (14-36); Bilirubin,Total 0.5 mg/dL (0.2-1.3); Blood Urea Nitrogen 33 mg/dL (7-17); Calcium 9.3 mg/dL (8.4-10.2); Carbon Dioxide 23 mmol/L (22-30); Chloride 106 mmol/L (98-107); Estimated CRCL calculation 26 ml/min; Estimated Glomerular Filt Rate 44; Glucose 141 mg/dL (65-110); Potassium 4.5 mmol/L (3.4-5.0); Sodium 139 mmol/L (137-145)
--- NOTE | 2023-07-29 07:18 | PM.PNCARD ---
Progress Note: A&P Assessment and Plan (1) Symptomatic bradycardia: Code(s): R00.1 - Bradycardia, unspecified Status: Acute (2) Anemia, iron deficiency: Code(s): D50.9 - Iron deficiency anemia, unspecified Status: Acute Plan 77-year-old lady with paroxysmal atrial fib/flutter concerning symptomatic bradycardia with junctional rhythm in the 30s at times. Implantation of pacemaker is reasonable but it is clearly not emergent and it is in my opinion it is imprudent to proceed with this non emergent procedure in the face of hemoglobin of 7.5. My recommendation is that she received 2 units of packed red blood cells today and I will try to get her back on the schedule for a Micra implant tomorrow Bon Adorno MD [facility] Subjective Date/time seen: Date of service 07/29/23 07:18 Interval history: Follow-up in this 77-year-old lady with concerning bradycardia she has paroxysmal atrial fib/flutter, concerning bradycardia with junctional rhythm and pacemaker implantation has been recommended. Discovered upon reviewing her chart this morning she is severely anemic with hemoglobin of 7.5 with microcytic indices. Patient is very hard of hearing but otherwise free of complaints this morning Exam Const: Other: Very frail pale-appearing elderly lady HENMT: Mouth: Yes moist mucous membranes Eyes: Sclera: sclerae normal Neck: Neck: supple and no JVD Resp: Effort & Inspection: normal respiratory effort Auscultation: clear to auscultation bilaterally Cardio: Rate: regular rate Rhythm: regular rhythm GI: GI Palp: Yes Soft to palpation Auscultation: normal bowel sounds Skin: Other: Skin is pale Neuro: Other: Alert and responsive very hard of hearing Extrem: Other: Adequate perfusion Objective Data Vital Signs Vital Signs: Vital Signs - 24 hr 07/28/23 07:52 07/28/23 08:51 07/28/23 10:20 Temperature 36.2 C L Pulse Rate 57 L 64 39 L Respiratory Rate 14 Blood Pressure 133/46 L Pulse Oximetry 100 Oxygen Delivery 07/28/23 10:20 07/28/23 10:30 07/28/23 10:30 Temperature Pulse Rate 39 L 39 L Respiratory Rate 16 16 Blood Pressure 95/37 L 116/40 L Pulse Oximetry Oxygen Delivery 07/28/23 12:00 07/28/23 08:09 07/28/23 12:15 Temperature 36.4 C L Pulse Rate 35 L 60 44 L Respiratory Rate 18 Blood Pressure 103/42 L Pulse Oximetry 100 Oxygen Delivery 07/28/23 14:00 07/28/23 15:20 07/28/23 15:25 Temperature Pulse Rate 43 L 38 L 35 L Respiratory Rate 16 Blood Pressure 88/35 L Pulse Oximetry Oxygen Delivery 07/28/23 15:30 07/28/23 16:27 07/28/23 17:00 Temperature 36.8 C Pulse Rate 40 L 39 L 39 L Respiratory Rate 16 16 Blood Pressure 91/39 L 95/34 L 122/46 L Pulse Oximetry 100 Oxygen Delivery 07/28/23 16:00 07/28/23 18:00 07/28/23 17:30 Temperature Pulse Rate 38 L 39 L 38 L Respiratory Rate Blood Pressure 103/41 L Pulse Oximetry Oxygen Delivery 07/28/23 18:19 07/28/23 19:32 07/28/23 20:34 Temperature 36.2 C L Pulse Rate 40 L 40 L 42 L Respiratory Rate 16 Blood Pressure 94/41 L 96/45 L Pulse Oximetry 99 Oxygen Delivery 07/28/23 22:21 07/28/23 22:25 07/28/23 20:00 Temperature Pulse Rate 33 L 33 L 37 L Respiratory Rate Blood Pressure 110/47 L 110/47 L Pulse Oximetry Oxygen Delivery 07/28/23 20:00 07/28/23 22:00 07/28/23 23:10 Temperature 36.4 C L Pulse Rate 37 L 57 L Respiratory Rate 16 Blood Pressure 169/54 H Pulse Oximetry 97 Oxygen Delivery Room Air 07/29/23 00:00 07/29/23 00:00 07/29/23 02:00 Temperature Pulse Rate 57 L 53 L Respiratory Rate Blood Pressure Pulse Oximetry Oxygen Delivery Room Air 07/29/23 04:00 07/29/23 04:00 07/29/23 04:00 Temperature 36.2 C L Pulse Rate 48 L 40 L Respiratory Rate 16 Blood Pressure 104/54 L Pulse Oximetry 98 Oxygen Delivery Room Air
--- NOTE | 2023-07-29 07:48 | PM.PNCARD ---
Progress Note: A&P Assessment and Plan (1) Paroxysmal atrial fibrillation: Code(s): I48.0 - Paroxysmal atrial fibrillation Status: Acute Assessment and Plan: In sinus rhythm. HR did go as low at 38 bpm. Stopped Atenolol. Tried low dose Amiodarone 50 mg daily but she had pauses up to 3.5 seconds and bradycardia with slow junctional rhythm in low 30's bpm. [id number] 5. Was on Xarelto, last dose on Thursday. (2) Anemia: Code(s): D64.9 - Anemia, unspecified Status: Acute Assessment and Plan: Workup and management as per hospitalist. Transfuse PRBC today. (3) Hypertension associated with diabetes: Code(s): E11.59 - Type 2 diabetes mellitus with other circulatory complications; I10 - Essential (primary) hypertension Status: Acute Assessment and Plan: Stable on Dopamine drip. (4) Nicotine dependence: Qualifiers: Nicotine product type: cigarettes Substance use status: uncomplicated Qualified Code(s): F17.210 - Nicotine dependence, cigarettes, uncomplicated Code(s): F17.200 - Nicotine dependence, unspecified, uncomplicated Status: Acute Assessment and Plan: Counseled regarding smoking cessation. (5) Urinary retention: Code(s): R33.9 - Retention of urine, unspecified Status: Acute Assessment and Plan: Workup as per hospitalist. (6) Symptomatic bradycardia: Code(s): R00.1 - Bradycardia, unspecified Status: Acute Assessment and Plan: Monitor on telemetry. Started Dopamine drip to maintain HR above 50 bpm and SBP>100 mmHg. Consulted [facility] [place] PPM and appreciate Dr. Viera's evaluation. Plan was for PPM today, but she is very anemic still with Hb 7.6 today. Plan for PRBC transfusion today and PPM implant for tomorrow by [facility]. (7) Tachy-jordon syndrome: Code(s): I49.5 - Sick sinus syndrome Status: Acute Subjective Date/time seen: 07/29/23 07:48 Interval history: Denies chest pain or sob. Feels weak. Hard of hearing. Exam Const: General: cooperative, healthy appearing and comfortable Orientation/consciousness: oriented to person, oriented to place and oriented to time Resp: Auscultation: clear to auscultation bilaterally, no crackles, no rales, no rhonchi and no wheezes Cardio: Rate: bradycardic Rhythm: regular rhythm Heart sounds: no murmurs Neuro: General: oriented to person, oriented to place and oriented to time Extrem: Right lower extremity: no edema Left lower extremity: no edema Objective Data Vital Signs Vital Signs: Vital Signs - 24 hr 07/28/23 07:52 07/28/23 08:51 07/28/23 10:20 Temperature 97.2 F L Pulse Rate 57 L 64 39 L Respiratory Rate 14 Blood Pressure 133/46 L Pulse Oximetry 100 Oxygen Delivery 07/28/23 10:20 07/28/23 10:30 07/28/23 10:30 Temperature Pulse Rate 39 L 39 L Respiratory Rate 16 16 Blood Pressure 95/37 L 116/40 L Pulse Oximetry Oxygen Delivery 07/28/23 12:00 07/28/23 08:09 07/28/23 12:15 Temperature 97.5 F L Pulse Rate 35 L 60 44 L Respiratory Rate 18 Blood Pressure 103/42 L Pulse Oximetry 100 Oxygen Delivery 07/28/23 14:00 07/28/23 15:20 07/28/23 15:25 Temperature Pulse Rate 43 L 38 L 35 L Respiratory Rate 16 Blood Pressure 88/35 L Pulse Oximetry Oxygen Delivery 07/28/23 15:30 07/28/23 16:27 07/28/23 17:00 Temperature 98.2 F Pulse Rate 40 L 39 L 39 L Respiratory Rate 16 16 Blood Pressure 91/39 L 95/34 L 122/46 L Pulse Oximetry 100 Oxygen Delivery 07/28/23 16:00 07/28/23 18:00 07/28/23 17:30 Temperature Pulse Rate 38 L 39 L 38 L Respiratory Rate Blood Pressure 103/41 L Pulse Oximetry Oxygen Delivery 07/28/23 18:19 07/28/23 19:32 07/28/23 20:34 Temperature 97.2 F L Pulse Rate 40 L 40 L 42 L Respiratory Rate 16 Blood Pressure 94/41 L 96/45 L Pulse Oximetry 99 Oxygen Delivery 07/28/23 22:21 07/28/23 22:25 07/28/23
[2023-07-29 08:38] LABS: Glucose Point of Care 141 mg/dl (65-105)
[2023-07-29] MEDS: CHOLECALCIFEROL 1,000 UNITS TABLET 2000 UNITS PO (08:42)
[2023-07-29] MEDS: IRON SUCROSE COMPLEX 500 MG in SODIUM CHLORIDE 0.9% IV 250 ML 78.57 MG IVPB (08:43)
[2023-07-29] MEDS: FERROUS GLUCONATE 324 MG TABLET PO (08:43)
[2023-07-29 08:55] LABS: Hematocrit 26.2 % (37.0-47.0); Hemoglobin 7.6 g/dL (12.0-15.0); Mean Corpuscular Hemoglobin 22.6 pg (26-34); Mean Platelet Volume 9.7 fl (7.4-10.4); Platelet Count Result 442 k/mm3 (150-375); Red Blood Count 3.36 M/mm3 (4.2-5.4); Red Cell Distribution Width 18.6 % (11.5-14.5); White Blood Count 10.9 K/mm3 (4.5-10.0)
--- NOTE | 2023-07-29 10:28 | P.PNIM_ITS ---
Progress Note: A&P Assessment and Plan (1) Bradycardia: Code(s): R00.1 - Bradycardia, unspecified Status: Inactive Assessment and Plan: 07/28/23: * Recently started on amlodipine 200 mg daily; also on atenolol 50 mg daily though that was decreased. * Dr. Barone has been consulted and his input is appreciated. * Dr. Garcia decreased patient's amlodipine 250 mg daily. * Atenolol continue to hold. * TSH within normal limits. 07/29/23: * H/H this a.m. 7.6/26.2, plan to transfuse 2 units PRBC today * Order for PICC line to be placed * Continue Dopamine infusion * Plan for PPM tomorrow with cardiology. (2) Urinary retention: Code(s): R33.9 - Retention of urine, unspecified Status: Acute Assessment and Plan: 07/28/23: * Patient had difficulties urinating at the outside facility and was found to be retaining greater than 400 cc of urine. * Continue Diaz catheter for now. * Will need voiding trial prior to discharge. 07/29/23: * Continue with diaz catheter for now * BUN 33, Creatinine 1.20, eGFR 44 (3) Anemia: Code(s): D64.9 - Anemia, unspecified Status: Acute Assessment and Plan: 07/28/23: * Patient was found to have a hemoglobin of 7.3 at [place]. Repeat CBC with hemoglobin of 7.5. * Xarelto on hold. * Anemia labs ordered and revealed severe iron deficiency anemia. * Will do 3 days of iron infusions. * Daily iron supplement. * Monitor CBC daily. * Occult stool ordered. 07/29/23: * H/H 7.6/26.2 will give 2 Units PRBC today * Recheck H/H post 2nd transfusion (4) Paroxysmal atrial fibrillation: Code(s): I48.0 - Paroxysmal atrial fibrillation Status: Acute Assessment and Plan: 07/28/23: * Currently in a sinus bradycardia. * Amlodipine decreased to 50 mg daily. * Atenolol on hold. * Xarelto on hold due to anemia 07/29/23: * Continue with current treatment plan (5) Chronic obstructive pulmonary disease: Code(s): J44.9 - Chronic obstructive pulmonary disease, unspecified Status: Acute Assessment and Plan: 07/28/23: * No acute evidence to suggest exacerbation. * Continue maintenance inhalers and p.r.n. nebulizers. 07/29/23: * Continue with current treatment plan * Lungs course to auscultation, patient has raspy cough, will get a chest x-ray today. (6) Tobacco abuse: Code(s): Z72.0 - Tobacco use Status: Acute Assessment and Plan: 07/28/23: * Smoking cessation is imperative and was discussed. 07/29/23: * Continue with current treatment plan (7) Alcohol use disorder: Status: Acute Assessment and Plan: 07/28/23: * Patient denies ever having signs or symptoms of alcohol withdrawal or withdrawal seizures. She has not had alcohol for 2 weeks. No signs of withd rishabh. 07/29/23: * No change to current treatment plan (8) Type 2 diabetes mellitus, without long-term current use of insulin: Qualifiers: Diabetes mellitus complication detail: with diabetic retinopathy Diabetes mellitus complication status: with ophthalmic complications Diabetes mellitus macular edema: macular edema presence unspecified Diabetic retinopathy severity: with unspecified retinopathy severity Laterality: unspecified laterality Qualified Code(s): E11.319 - Type 2 diabetes mellitus with unspecified diabetic retinopathy without macular edema Code(s): E11.
--- NOTE | 2023-07-29 10:28 | PM.IMPN ---
Progress Note: A&P Assessment and Plan (1) Bradycardia: Code(s): R00.1 - Bradycardia, unspecified Status: Inactive Assessment and Plan: 07/28/23: Recently started on amlodipine 200 mg daily; also on atenolol 50 mg daily though that was decreased. Dr. Barone has been consulted and his input is appreciated. Dr. Garcia decreased patient's amlodipine 250 mg daily. Atenolol continue to hold. TSH within normal limits. 07/29/23: H/H this a.m. 7.6/26.2, plan to transfuse 2 units PRBC today Order for PICC line to be placed Continue Dopamine infusion Plan for PPM tomorrow with cardiology. (2) Urinary retention: Code(s): R33.9 - Retention of urine, unspecified Status: Acute Assessment and Plan: 07/28/23: Patient had difficulties urinating at the outside facility and was found to be retaining greater than 400 cc of urine. Continue Diaz catheter for now. Will need voiding trial prior to discharge. 07/29/23: Continue with diaz catheter for now BUN 33, Creatinine 1.20, eGFR 44 (3) Anemia: Code(s): D64.9 - Anemia, unspecified Status: Acute Assessment and Plan: 07/28/23: Patient was found to have a hemoglobin of 7.3 at [place]. Repeat CBC with hemoglobin of 7.5. Xarelto on hold. Anemia labs ordered and revealed severe iron deficiency anemia. Will do 3 days of iron infusions. Daily iron supplement. Monitor CBC daily. Occult stool ordered. 07/29/23: H/H 7.6/26.2 will give 2 Units PRBC today Recheck H/H post 2nd transfusion (4) Paroxysmal atrial fibrillation: Code(s): I48.0 - Paroxysmal atrial fibrillation Status: Acute Assessment and Plan: 07/28/23: Currently in a sinus bradycardia. Amlodipine decreased to 50 mg daily. Atenolol on hold. Xarelto on hold due to anemia 07/29/23: Continue with current treatment plan (5) Chronic obstructive pulmonary disease: Code(s): J44.9 - Chronic obstructive pulmonary disease, unspecified Status: Acute Assessment and Plan: 07/28/23: No acute evidence to suggest exacerbation. Continue maintenance inhalers and p.r.n. nebulizers. 07/29/23: Continue with current treatment plan Lungs course to auscultation, patient has raspy cough, will get a chest x-ray today. (6) Tobacco abuse: Code(s): Z72.0 - Tobacco use Status: Acute Assessment and Plan: 07/28/23: Smoking cessation is imperative and was discussed. 07/29/23: Continue with current treatment plan (7) Alcohol use disorder: Status: Acute Assessment and Plan: 07/28/23: Patient denies ever having signs or symptoms of alcohol withdrawal or withdrawal seizures. She has not had alcohol for 2 weeks. No signs of withdrawal. 07/29/23: No change to current treatment plan (8) Type 2 diabetes mellitus, without long-term current use of insulin: Qualifiers: Diabetes mellitus complication detail: with diabetic retinopathy Diabetes mellitus complication status: with ophthalmic complications Diabetes mellitus macular edema: macular edema presence unspecified Diabetic retinopathy severity: with unspecified retinopathy severity Laterality: unspecified laterality Qualified Code(s): E11.319 - Type 2 diabetes mellitus with unspecified diabetic retinopathy without macular edema Code(s): E11.9 - Type 2 diabetes mellitus without complications Status: Acute Assessment and Plan: 07/28/23: Random glucose was 112, recent hemoglobin A1c was 5.9%. Hold metformin for now. Initiate sliding scale insulin, Accu-Cheks, and hypoglycemic protocol. 07/29/23: BG ranging 141-169 Continue with current treatment plan Subjective Date/time seen: 07/29/23 10:28 Interval history: Interval history: This is a 77 year old female who presented to the hospital on 07/27/23 for bradycardia. She initially presented to [facility]
[2023-07-29 12:29] LABS: Glucose Point of Care 125 mg/dl (65-105)
[2023-07-29] MEDS: SODIUM CHLORIDE 0.9% IV 250 ML 30 ML IV CONT (13:23)
[2023-07-29] MEDS: TUBING, BLOOD PLUM PUMP TUBING 1 EACH XX ×2 (13:23→18:28)
[2023-07-29 16:48] LABS: Glucose Point of Care 192 mg/dl (65-105)
[2023-07-29] MEDS: SODIUM CHLORIDE 0.9% IV 250 ML 30 ML (18:28)
[2023-07-29 20:34] LABS: Glucose Point of Care 171 mg/dl (65-105)
[2023-07-29] MEDS: ATORVASTATIN 40 MG TABLET BY MOUTH (20:56)
[2023-07-29] MEDS: DOPamine 400 MG/D5W 250 ML 400 MG/250 ML BAG 9.66 MG IV CONT (20:56)
[2023-07-30] VITALS (20 sets, daily range): BP systolic 122–169; BP diastolic 43–69; PULSE 57–70; RESP 16–20; TEMP 36.2–37; O2SAT 94–100
[2023-07-30 03:35] LABS: Basophils Absolute Auto 0.1 K/mm3 (0.0-0.1); Basophils Percent Auto 0.4 % (0.2-1.2); Eosinophils Absolute Auto 0.1 K/mm3 (0-0.3); Eosinophils Percent Auto 0.9 % (0-4.4); Hematocrit 33.4 % (37.0-47.0); Hemoglobin 10.4 g/dL (12.0-15.0); Immature Granulocyte Absolute 0.04 K/mm3 (0.00-0.031); Immature Granulocyte Percent A 0.3 % (0-0.5); Lymphocytes Percent Auto 17.1 % (18.3-44.2); Mean Corpuscular HGB Conc 31.1 g/dl (32-36); Mean Corpuscular Hemoglobin 24.5 pg (26-34); Mean Corpuscular Volume 78.8 fl (80-100); Mean Platelet Volume 9.2 fl (7.4-10.4); Monocytes Absolute Auto 1.2 K/mm3 (0.1-0.6); Monocytes Percent Auto 9.5 % (2.6-8.5); Neutrophils Absolute Auto 8.8 K/mm3 (1.3-6.7); Neutrophils Percent Auto 71.8 % (45.5-73.1); Platelet Count Result 376 k/mm3 (150-375); Red Blood Count 4.24 M/mm3 (4.2-5.4); White Blood Count 12.3 K/mm3 (4.5-10.0)
[2023-07-30 07:45] LABS: Glucose Point of Care 117 mg/dl (65-105)
--- NOTE | 2023-07-30 08:01 | PM.PNCARD ---
Progress Note: A&P Assessment and Plan (1) Paroxysmal atrial fibrillation: Code(s): I48.0 - Paroxysmal atrial fibrillation Status: Acute Assessment and Plan: In sinus rhythm. HR did go as low at 38 bpm. Stopped Atenolol. Tried low dose Amiodarone 50 mg daily but she had pauses up to 3.5 seconds and bradycardia with slow junctional rhythm in low 30's bpm. [id number] 5. Was on Xarelto, last dose on Thursday. (2) Anemia: Code(s): D64.9 - Anemia, unspecified Status: Acute Assessment and Plan: Workup and management as per hospitalist. Transfused 2 units PRBC on 07/29/23. (3) Hypertension associated with diabetes: Code(s): E11.59 - Type 2 diabetes mellitus with other circulatory complications; I10 - Essential (primary) hypertension Status: Acute Assessment and Plan: Stable on Dopamine drip. (4) Nicotine dependence: Qualifiers: Nicotine product type: cigarettes Substance use status: uncomplicated Qualified Code(s): F17.210 - Nicotine dependence, cigarettes, uncomplicated Code(s): F17.200 - Nicotine dependence, unspecified, uncomplicated Status: Acute Assessment and Plan: Counseled regarding smoking cessation. (5) Urinary retention: Code(s): R33.9 - Retention of urine, unspecified Status: Acute Assessment and Plan: Workup as per hospitalist. (6) Symptomatic bradycardia: Code(s): R00.1 - Bradycardia, unspecified Status: Acute Assessment and Plan: Monitor on telemetry. Started Dopamine drip to maintain HR above 50 bpm and SBP>100 mmHg. Consulted [facility] for PPM and appreciate Dr. Viera's evaluation. Plan was for PPM today. Then can stop Dopamine drip. And, then will resume Amiodarone. (7) Tachy-jordon syndrome: Code(s): I49.5 - Sick sinus syndrome Status: Acute Subjective Date/time seen: 07/30/23 08:01 Interval history: Denies chest pain or sob. Hard of hearing. Exam Const: General: cooperative, healthy appearing and comfortable Orientation/consciousness: oriented to person, oriented to place and oriented to time Resp: Auscultation: clear to auscultation bilaterally, no crackles, no rales, no rhonchi and no wheezes Cardio: Rate: regular rate Rhythm: regular rhythm Heart sounds: no murmurs Neuro: General: oriented to person, oriented to place and oriented to time Extrem: Right lower extremity: no edema Left lower extremity: no edema Objective Data Vital Signs Vital Signs: Vital Signs - 24 hr 07/29/23 11:05 07/29/23 13:20 07/29/23 12:00 Temperature 98.4 F 97.7 F Pulse Rate 42 L 45 L Respiratory Rate 15 18 Blood Pressure 121/42 L 135/49 L Pulse Oximetry 91 90 Oxygen Delivery Room Air 07/29/23 13:35 07/29/23 14:35 07/29/23 15:47 Temperature 98.4 F 98.4 F 98.4 F Pulse Rate 58 L 41 L 41 L Respiratory Rate 18 17 17 Blood Pressure 142/52 H 118/64 118/64 Pulse Oximetry 96 100 100 Oxygen Delivery 07/29/23 16:00 07/29/23 15:30 07/29/23 18:10 Temperature 97.8 F 97.6 F Pulse Rate 44 L 43 L Respiratory Rate 18 18 Blood Pressure 124/52 L 129/43 L Pulse Oximetry 100 99 Oxygen Delivery Room Air 07/29/23 18:25 07/29/23 19:25 07/29/23 10:00 Temperature 97.6 F 98.6 F Pulse Rate 45 L 60 38 L Respiratory Rate 19 16 Blood Pressure 129/48 L 177/61 H Pulse Oximetry 97 100 Oxygen Delivery 07/29/23 12:00 07/29/23 14:00 07/29/23 16:00 Temperature Pulse Rate 47 L 56 L 46 L Respiratory Rate Blood Pressure Pulse Oximetry Oxygen Delivery 07/29/23 18:00 07/29/23 19:46 07/29/23 20:00 Temperature 98.6 F Pulse Rate 43 L 60 Respiratory Rate 16 Blood Pressure 177/61 H Pulse Oximetry 100 Oxygen Delivery Room Air 07/29/23 20:25 07/29/23 20:56 07/29/23 23:04 Temperature 97.6 F 97.7 F Pulse Rate 59 L 61 59 L Respiratory Rate 16 16 Blood Pressure 172/75 H 163/64 H Pulse Oximetry 99 97 Oxygen Delivery
--- NOTE | 2023-07-30 08:42 | P.PNIM_ITS ---
Progress Note: A&P Assessment and Plan (1) Bradycardia: Code(s): R00.1 - Bradycardia, unspecified Status: Inactive Assessment and Plan: 07/28/23: * Recently started on amlodipine 200 mg daily; also on atenolol 50 mg daily though that was decreased. * Dr. Barone has been consulted and his input is appreciated. * Dr. Garcia decreased patient's amlodipine 250 mg daily. * Atenolol continue to hold. * TSH within normal limits. 07/29/23: * H/H this a.m. 7.6/26.2, plan to transfuse 2 units PRBC today * Order for PICC line to be placed * Continue Dopamine infusion * Plan for PPM tomorrow with cardiology. 07/30/23: * Hemoglobin 10.4, hematocrit 33.4 * Dopamine infusion discontinued. * Continue IV fluids overnight, will reassess morning * Patient taken to [employer] today for permanent pacemaker with Cardiology and had a Medtronic Micra 2 AV leadless pacemaker placed with anesthesia, without difficulty * Cardiology following * Right lower extremity restraint applied due to decreased mental status post PPM placement and inability to keep her leg straight until bedrest is up. May discontinue when bedrest is over. (2) Urinary retention: Code(s): R33.9 - Retention of urine, unspecified Status: Acute Assessment and Plan: 07/28/23: * Patient had difficulties urinating at the outside facility and was found to be retaining greater than 400 cc of urine. * Continue Diaz catheter for now. * Will need voiding trial prior to discharge. 07/29/23: * Continue with diaz catheter for now * BUN 33, Creatinine 1.20, eGFR 44 07/30/23: * Continue with Diaz catheter for now, will reassess in the morning for removal * BUN 20, creatinine 0.8 and GFR is>60 (3) Anemia: Code(s): D64.9 - Anemia, unspecified Status: Acute Assessment and Plan: 07/28/23: * Patient was found to have a hemoglobin of 7.3 at [place]. Repeat CBC with hemoglobin of 7.5. * Xarelto on hold. * Anemia labs ordered and revealed severe iron deficiency anemia. * Will do 3 days of iron infusions. * Daily iron supplement. * Monitor CBC daily. * Occult stool ordered. 07/29/23: * H/H 7.6/26.2 will give 2 Units PRBC today * Recheck H/H post 2nd transfusion 07/30/23: * H&H stable * No further transfusion needed * See above (4) Paroxysmal atrial fibrillation: Code(s): I48.0 - Paroxysmal atrial fibrillation Status: Acute Assessment and Plan: 07/28/23: * Currently in a sinus bradycardia. * Amlodipine decreased to 50 mg daily. * Atenolol on hold. * Xarelto on hold due to anemia 07/29/23: * Continue with current treatment plan 07/30/23: * Continue with current treatment plan (5) Chronic obstructive pulmonary disease: Code(s): J44.9 - Chronic obstructive pulmonary disease, unspecified Status: Acute Assessment and Plan: 07/28/23: * No acute evidence to suggest exacerbation. * Continue maintenance inhalers and p.r.n. nebulizers. 07/29/23: * Continue with current treatment plan * Lungs course to auscultation, patient has raspy cough, will get a chest x-ray today. 07/30/23: * Continue with current treatment (6) Tobacco abuse: Code(s): Z72.0 - Tobacco use Status: Acute Assessment and Plan: 07/28/23: * Smoking cessation is imperative and was discussed. 07/29/23: * Continue with current treatment plan
--- NOTE | 2023-07-30 08:42 | PM.IMPN ---
Progress Note: A&P Assessment and Plan (1) Bradycardia: Code(s): R00.1 - Bradycardia, unspecified Status: Inactive Assessment and Plan: 07/28/23: Recently started on amlodipine 200 mg daily; also on atenolol 50 mg daily though that was decreased. Dr. Barone has been consulted and his input is appreciated. Dr. Garcia decreased patient's amlodipine 250 mg daily. Atenolol continue to hold. TSH within normal limits. 07/29/23: H/H this a.m. 7.6/26.2, plan to transfuse 2 units PRBC today Order for PICC line to be placed Continue Dopamine infusion Plan for PPM tomorrow with cardiology. 07/30/23: Hemoglobin 10.4, hematocrit 33.4 Dopamine infusion discontinued. Continue IV fluids overnight, will reassess morning Patient taken to cath lab nurse today for permanent pacemaker with Cardiology and had a Medtronic Micra 2 AV leadless pacemaker placed with anesthesia, without difficulty Cardiology following Right lower extremity restraint applied due to decreased mental status post PPM placement and inability to keep her leg straight until bedrest is up. May discontinue when bedrest is over. (2) Urinary retention: Code(s): R33.9 - Retention of urine, unspecified Status: Acute Assessment and Plan: 07/28/23: Patient had difficulties urinating at the outside facility and was found to be retaining greater than 400 cc of urine. Continue Diaz catheter for now. Will need voiding trial prior to discharge. 07/29/23: Continue with diaz catheter for now BUN 33, Creatinine 1.20, eGFR 44 07/30/23: Continue with Diaz catheter for now, will reassess in the morning for removal BUN 20, creatinine 0.8 and GFR is>60 (3) Anemia: Code(s): D64.9 - Anemia, unspecified Status: Acute Assessment and Plan: 07/28/23: Patient was found to have a hemoglobin of 7.3 at [place]. Repeat CBC with hemoglobin of 7.5. Xarelto on hold. Anemia labs ordered and revealed severe iron deficiency anemia. Will do 3 days of iron infusions. Daily iron supplement. Monitor CBC daily. Occult stool ordered. 07/29/23: H/H 7.6/26.2 will give 2 Units PRBC today Recheck H/H post 2nd transfusion 07/30/23: H&H stable No further transfusion needed See above (4) Paroxysmal atrial fibrillation: Code(s): I48.0 - Paroxysmal atrial fibrillation Status: Acute Assessment and Plan: 07/28/23: Currently in a sinus bradycardia. Amlodipine decreased to 50 mg daily. Atenolol on hold. Xarelto on hold due to anemia 07/29/23: Continue with current treatment plan 07/30/23: Continue with current treatment plan (5) Chronic obstructive pulmonary disease: Code(s): J44.9 - Chronic obstructive pulmonary disease, unspecified Status: Acute Assessment and Plan: 07/28/23: No acute evidence to suggest exacerbation. Continue maintenance inhalers and p.r.n. nebulizers. 07/29/23: Continue with current treatment plan Lungs course to auscultation, patient has raspy cough, will get a chest x-ray today. 07/30/23: Continue with current treatment (6) Tobacco abuse: Code(s): Z72.0 - Tobacco use Status: Acute Assessment and Plan: 07/28/23: Smoking cessation is imperative and was discussed. 07/29/23: Continue with current treatment plan 07/30/23: no change to current treatment plan (7) Alcohol use disorder: Status: Acute Assessment and Plan: 07/28/23: Patient denies ever having signs or symptoms of alcohol withdrawal or withdrawal seizures. She has not had alcohol for 2 weeks. No signs of withdrawal. 07/29/23: No change to current treatment plan 07/30/23: No change to current treatment plan (8) Type 2 diabetes mellitus, without long-term current use of insulin: Qualifiers: Diabetes mellitus complication detail: with diabetic retinopathy Diabetes mellitus c
[2023-07-30 08:57] LABS: Alanine Aminotransferase 18 U/L (6-35); Albumin Level 3.7 g/dL (3.5-5.1); Alkaline Phosphatase 112 U/L (38-126); Anion Gap 10 mmol/L (8-16); Aspartate Amino Transferase 30 U/L (14-36); Bilirubin,Total 0.7 mg/dL (0.2-1.3); Blood Urea Nitrogen 20 mg/dL (7-17); Calcium 9.3 mg/dL (8.4-10.2); Carbon Dioxide 22 mmol/L (22-30); Chloride 108 mmol/L (98-107); Estimated CRCL calculation 38 ml/min; Estimated Glomerular Filt Rate > 60; Glucose 119 mg/dL (65-110); Potassium 4.3 mmol/L (3.4-5.0); Sodium 140 mmol/L (137-145)
[2023-07-30] MEDS: IRON SUCROSE COMPLEX 500 MG in SODIUM CHLORIDE 0.9% IV 250 ML 78.57 MG IVPB (10:01)
[2023-07-30] MEDS: CHOLECALCIFEROL 1,000 UNITS TABLET 2000 UNITS PO (10:02)
[2023-07-30] MEDS: FERROUS GLUCONATE 324 MG TABLET PO (10:02)
[2023-07-30 12:26] LABS: Glucose Point of Care 93 mg/dl (65-105)
--- NOTE | 2023-07-30 13:11 | WPDMODSED ---
Moderate Sedation Note-Pt Data Patient Data Diagnosis: paroxysmal atrial fibrillation with sick sinus syndrome Present Complaint: no complaints Procedure to be performed/Plan: permanent pacemaker implantation Allergies Allergy/AdvReac Type Severity Reaction Status Date / Time JOAQUINA Inhibitors Allergy Intermediate angioedema Verified 07/27/23 22:14 hydrochlorothiazide [Dyazide] Allergy Intermediate Hyponatremi Verified 07/27/23 22:14 a lisinopril Allergy Intermediate TONGUE Verified 07/27/23 22:14 SWELLING triamterene [Dyazide] Allergy Intermediate Hyponatremi Verified 07/27/23 22:14 a codeine [Tylenol-Codeine #3] AdvReac Intermediate Sleepiness Verified 07/28/23 08:14 tramadol AdvReac Intermediate nausea Verified 07/28/23 08:14 cephalexin AdvReac Mild rash Verified 07/27/23 22:14 Home Medications Medication Instructions Recorded Confirmed Type vitamins A,C,U-fbtu-faeyno 4,296 1 cap PO BID 08/12/19 07/27/23 History mcg-226 mg-90 mg capsule (ICaps AREDS) cholecalciferol (vitamin D3) 50 50 mcg PO DAILY 06/04/20 07/27/23 History mcg (2,000 unit) capsule aspirin 81 mg tablet,delayed 81 mg PO QAM #30 tabs 09/13/22 07/27/23 Rx release metformin 500 mg tablet See Rx Instructions .Route 02/16/23 07/27/23 Rx .COMPLEX #90 tabs spironolactone 50 mg tablet See Rx Instructions .Route 03/05/23 07/27/23 Rx .COMPLEX #90 tabs amiodarone 200 mg tablet 100 mg PO DAILY #90 tabs 03/30/23 07/27/23 Rx rivaroxaban 20 mg tablet (Xarelto) See Rx Instructions .Route 04/21/23 07/27/23 Rx .COMPLEX #90 tabs atorvastatin 40 mg tablet See Rx Instructions .Route 07/14/23 07/27/23 Rx .COMPLEX #90 tabs losartan 50 mg tablet 50 mg PO DAILY 07/23/23 07/27/23 History atenolol 25 mg tablet 12.5 mg PO DAILY #45 tabs 07/27/23 07/27/23 Rx Current Medications: Active Medications Acetaminophen (Acetaminophen 325 Mg Tablet) 650 mg PO Q4H PRN PRN Reason: Mild Pain (1-3) or Fever Atorvastatin Calcium (Atorvastatin 40 Mg Tablet) 40 mg BY MOUTH HS [facility] Last Admin: 07/29/23 20:56 Dose: 40 mg Dextrose (Dextrose 50% 25 Gm/50 Ml Syringe) 12.5 gm IV PUSH PRN PRN; Protocol PRN Reason: Hypoglycemia Ferrous Gluconate (Ferrous Gluconate 324 Mg Tablet) 324 mg PO DAILY@0800 [facility] Last Admin: 07/30/23 10:02 Dose: 324 mg Glucagon (Glucagon For Inj 1 Mg Vial) 1 mg IM PRN PRN; Protocol PRN Reason: Hypoglycemia Glucose (Glucose Oral Gel 15 Gm Of Glucse In 37.5 Gm Tube) 15 gm PO PRN PRN; Protocol PRN Reason: Hypoglycemia Dextrose (Dextrose 5% 1,000 Ml) 1,000 mls @ 100 mls/hr IVPB PRN PRN; Protocol PRN Reason: Hypoglycemia Iron Sucrose 500 mg/ Sodium (Chloride) 275 mls @ 78.571 mls/hr IVPB DAILY [place] Stop: 07/31/23 09:01 Last Admin: 07/30/23 10:01 Dose: 78.57 mls/hr Dopamine HCl/Dextrose (Dopamine 400 Mg/D5w 250 Ml) 400 mg in 250 mls @ 9.656 mls/hr IV CONT .Q24H [place] Last Infusion: 07/30/23 04:56 Dose: 5 mcg/kg/min, 9.66 mls/hr Insulin Aspart (Insulin Aspart (*Bkc) 100 Units/Ml) 2 - 5 units SUB-Q TIDWM [place]; Protocol Last Admin: 07/30/23 12:28 Dose: Not Given Insulin Aspart (Insulin Aspart (*Bkc) 100 Units/Ml) 1 - 2 units SUB-Q HS [place]; Protocol Last Admin: 07/29/23 20:53 Dose: Not Given Losartan Potassium (Losartan Potassium 50 Mg Tablet) 50 mg PO DAILY [facility] Last Admin: 07/28/23 08:51 Dose: 50 mg Vitamin D (Cholecalciferol 1,000 Units Tablet) 2,000 units PO DAILY [facility] Last Admin: 07/30/23 10:02 Dose: 2,000 units Sedation/Anesthesia: No previous sedation/anesthesia problems (including family history). [facility] Past Medical History Medical History (Updated 07/29/23 @ 07:53 by Eriberto Barone DO) Alcohol use disorder Anemia, iron deficiency Atypical atrial flutter Chronic anticoagulation Chronic obstructive pulmonary disease H/O: stroke Hypertension associated with diabetes Hypertensive retinopathy of both eyes Junctional rhythm Macular degeneration Nicotine dependence Osteoarthritis O
--- NOTE | 2023-07-30 13:46 | PCPTNOTE ---
Attempted PT evaluation, pt off the unit for procedure. Will follow.
--- NOTE | 2023-07-30 13:50 | ECG_ITS ---
Measurements Intervals [place] Rate: 61 P: 63 LA: 192 QRS: -69 QRSD: 148 T: 21 QT: 462 QTc: 466 Interpretive Statements SINUS RHYTHM RIGHT BUNDLE BRANCH BLOCK LEFT ANTERIOR FASCICULAR BLOCK BASELINE ARTIFACT- I, II, III, V1-V2, V4-V6 ABNORMAL ECG COMPARED TO ECG 07/28/2023 11:10:27 SINUS RHYTHM NOW PRESENT Electronically Signed On 07-30-2023 15:51:37 [employer]APH[employer]PER[employer] APPRENTICE by Eriberto Barone D.O.
--- NOTE | 2023-07-30 13:52 | P.PCNCC_ITS ---
Cardiac Cath Procedure Note Date of procedure:: 07/30/23 Performing physician:: Bon Adorno MD Indication:: paroxysmal atrial fibrillation with tachy-jordon syndrome Brief clinical history:: this is a 77 old woman with a history of paroxysmal atrial fibrillation has rhythm alternating with a between AF/ RVR and severe sinus bradycardia which is been symptomatic. Pacemaker implantation has been requested to allow for medical treatment of her AFib. Leadless device was recommended as the patient is rather frail Procedure Procedure performed:: implantation of Medtronic Micra AV leadless pacemaker Sedation/Medication given:: Versed 4 mg Access site:: right femoral vein Estimated blood loss:: 20 cc Procedure note:: patient was brought to the cardiac catheterization lab in the postabsorptive state the right femoral triangle was prepared and draped in the usual fashion. Anesthesia was infiltrated with 15 cc of block 1% lidocaine. Using the modified Seldinger technique the right femoral vein was punctured and a 5 Cameroonian vascular sheath was placed. The 5 Cameroonian sheath was then used to place a Super Stiff Amplatz wire into the venous circulation, through the IVC through the right atrium and out into the superior vena cava. Five Cameroonian sheath was then exchanged for a 22 Cameroonian dilator. This was then withdrawn and the Micra insertion sheath was placed into the puncture site and advanced under fluoroscopic visualization to the level of the right atrium. The dilator and Super Stiff wire were then removed. The Micra delivery system was then advanced into the level of the right atrium the inner delivery sheath was then withdrawn into the IVC. Both the sheath and the delivery catheter were connected to saline flush. The delivery catheter was then used to steer the tip of the delivery catheter across the tricuspid valve into the right ventricle. In the CARL projection with contrast injection septal position was confirmed. In the AP projection pressure was and exerted on to the catheter to create a gooseneck and the device was unlocked from the tether. The device was then deployed into the septal position and the delivery catheter was withdrawn into the vicinity of the tricuspid annulus. The annulus was used to confirm appropriate pacing and sensing performance as well as impedance measurements. Following this under fluoroscopic visualization the tug was made on the tether a demonstrating good movement of all 4 tines. The tether was then cut and slowly withdrawn from the device and then removed from the delivery system. The delivery system was then withdrawn from the sheath. A [id number] stitch was then made in the groin and as the delivery sheath was removed the knot was tied and direct pressure was then exert to obtain hemostasis for 17 minutes. Following this patient was taken to the holding area procedure was well tolerated and uncomplicated. Findings:: Patient received a Medtronic Micra AV2 leadless pacemaker model [id number] serial number [id number]. the R-waves are sensed at 8.7 mV impedance 790 Ohms pacing threshold 0.38 volts at 0.24 millisecond. Device is programmed VDD lower rate limit 50 upper rate limit 130 Conclusion:: successful uncomplicated implantation of Medtronic Micra 2 AV pacemaker for treatment of symptomatic sinus bradycardia and junctional bradycardia in this 77-year-old woman who also has paroxysmal AFib with RVR. Bon Adorno MD [facility]
[2023-07-30] MEDS: SODIUM CHLORIDE 0.9% IV 1,000 ML 50 ML IV CONT (16:11)
[2023-07-30 17:22] LABS: Glucose Point of Care 102 mg/dl (65-105)
[2023-07-30] MEDS: ATORVASTATIN 40 MG TABLET BY MOUTH (20:33)
[2023-07-30 20:43] LABS: Glucose Point of Care 105 mg/dl (65-105)
[2023-07-31] VITALS (11 sets, daily range): BP systolic 122–136; BP diastolic 49–59; PULSE 60–67; RESP 16–19; TEMP 36.4–36.8; O2SAT 94–95
[2023-07-31 05:37] LABS: Basophils Percent Auto 0.2 % (0.2-1.2); Eosinophils Percent Auto 0.1 % (0-4.4); Hematocrit 29.4 % (37.0-47.0); Hemoglobin 9.1 g/dL (12.0-15.0); Immature Granulocyte Absolute 0.07 K/mm3 (0.00-0.031); Immature Granulocyte Percent A 0.6 % (0-0.5); Lymphocytes Absolute Auto 1.26 K/mm3 (0.9-3.2); Mean Corpuscular Hemoglobin 24.8 pg (26-34); Mean Corpuscular Volume 80.1 fl (80-100); Mean Platelet Volume 9.8 fl (7.4-10.4); Monocytes Absolute Auto 1.5 K/mm3 (0.1-0.6); Monocytes Percent Auto 12.9 % (2.6-8.5); Neutrophils Absolute Auto 8.6 K/mm3 (1.3-6.7); Neutrophils Percent Auto 75.2 % (45.5-73.1); Platelet Count Result 320 k/mm3 (150-375); Red Blood Count 3.67 M/mm3 (4.2-5.4); White Blood Count 11.4 K/mm3 (4.5-10.0)
[2023-07-31 05:44] LABS: Alanine Aminotransferase 15 U/L (6-35); Albumin Level 3.4 g/dL (3.5-5.1); Alkaline Phosphatase 103 U/L (38-126); Anion Gap 10 mmol/L (8-16); Aspartate Amino Transferase 22 U/L (14-36); Bilirubin,Total 0.9 mg/dL (0.2-1.3); Blood Urea Nitrogen 15 mg/dL (7-17); Carbon Dioxide 22 mmol/L (22-30); Chloride 109 mmol/L (98-107); Estimated CRCL calculation 43 ml/min; Estimated Glomerular Filt Rate > 60; Glucose 104 mg/dL (65-110); Potassium 3.7 mmol/L (3.4-5.0); Sodium 141 mmol/L (137-145)
--- NOTE | 2023-07-31 07:37 | PM.PNCARD ---
Progress Note: A&P Assessment and Plan (1) Paroxysmal atrial fibrillation: Code(s): I48.0 - Paroxysmal atrial fibrillation Status: Acute Assessment and Plan: In sinus rhythm. HR did go as low at 38 bpm. Stopped Atenolol. Tried low dose Amiodarone 50 mg daily but she had pauses up to 3.5 seconds and bradycardia with slow junctional rhythm in low 30's bpm. [id number] 5. Was on Xarelto, last dose on Thursday. Resume Amiodarone low dose 100 mg daily to maintain sinus rhythm. (2) Anemia: Code(s): D64.9 - Anemia, unspecified Status: Acute Assessment and Plan: Workup and management as per hospitalist. Transfused 2 units PRBC on 07/29/23. (3) Hypertension associated with diabetes: Code(s): E11.59 - Type 2 diabetes mellitus with other circulatory complications; I10 - Essential (primary) hypertension Status: Acute Assessment and Plan: Stable. (4) Nicotine dependence: Qualifiers: Nicotine product type: cigarettes Substance use status: uncomplicated Qualified Code(s): F17.210 - Nicotine dependence, cigarettes, uncomplicated Code(s): F17.200 - Nicotine dependence, unspecified, uncomplicated Status: Acute Assessment and Plan: Counseled regarding smoking cessation. (5) Urinary retention: Code(s): R33.9 - Retention of urine, unspecified Status: Acute Assessment and Plan: Workup as per hospitalist. (6) Symptomatic bradycardia: Code(s): R00.1 - Bradycardia, unspecified Status: Acute Assessment and Plan: Monitor on telemetry. Started Dopamine drip to maintain HR above 50 bpm and SBP>100 mmHg. [place] [facility] [place] and appreciate Dr. Viera's evaluation. S/P Medtronic Micra leadless pacemaker implant by Dr. Adorno on 07/30/23. CXR showed partial LLL collapse or pneumonia. Start incentive spirometer. (7) Tachy-jordon syndrome: Code(s): I49.5 - Sick sinus syndrome Status: Acute Subjective Date/time seen: 07/31/23 07:37 Interval history: Denies chest pain or sob. Hard of hearing. Exam Const: General: cooperative, healthy appearing and comfortable Orientation/consciousness: oriented to person, oriented to place and oriented to time Resp: Auscultation: no crackles, no rales, no rhonchi, no wheezes and diminished lung sounds Cardio: Rate: regular rate Rhythm: regular rhythm Heart sounds: no murmurs Neuro: General: oriented to person, oriented to place and oriented to time Extrem: Right lower extremity: no edema Left lower extremity: no edema Objective Data Vital Signs Vital Signs: Vital Signs - 24 hr 07/30/23 08:20 07/30/23 12:00 07/30/23 14:15 Temperature 97.7 F 97.4 F L Pulse Rate 59 L 60 59 L Respiratory Rate 18 18 18 Blood Pressure 154/46 H 155/61 H 133/52 L Pulse Oximetry 97 100 95 Oxygen Delivery Room Air 07/30/23 14:30 07/30/23 14:45 07/30/23 15:00 Temperature Pulse Rate 59 L 60 59 L Respiratory Rate 20 20 20 Blood Pressure 169/59 H 166/66 H 146/67 H Pulse Oximetry 94 94 97 Oxygen Delivery Room Air Room Air Room Air 07/30/23 15:30 07/30/23 16:51 07/30/23 19:53 Temperature 98.1 F 98.6 F Pulse Rate 59 L 63 67 Respiratory Rate 18 16 16 Blood Pressure 156/56 H 132/69 141/51 H Pulse Oximetry 100 100 95 Oxygen Delivery Room Air 07/30/23 08:00 07/30/23 08:00 07/30/23 12:00 Temperature Pulse Rate 60 Respiratory Rate Blood Pressure Pulse Oximetry Oxygen Delivery Room Air Room Air 07/30/23 16:00 07/30/23 10:00 07/30/23 12:00 Temperature Pulse Rate 65 58 L Respiratory Rate Blood Pressure Pulse Oximetry Oxygen Delivery Room Air 07/30/23 16:00 07/30/23 18:00 07/30/23 16:00 Temperature 97.3 F L Pulse Rate 61 64 61 Respiratory Rate 20 Blood Pressure 122/43 L Pulse Oximetry 100 Oxygen Delivery 07/30/23 20:00 07/30/23 23:47 07/31/23 00:00 Temperature 97.9 F Pulse Rate 64 Respirato
[2023-07-31 08:11] LABS: Glucose Point of Care 104 mg/dl (65-105)
--- NOTE | 2023-07-31 08:59 | P.PNIM_ITS ---
Progress Note: A&P Assessment and Plan (1) Bradycardia: Code(s): R00.1 - Bradycardia, unspecified Status: Inactive Assessment and Plan: 07/28/23: * Recently started on amlodipine 200 mg daily; also on atenolol 50 mg daily though that was decreased. * Dr. Barone has been consulted and his input is appreciated. * Dr. Garcia decreased patient's amlodipine 250 mg daily. * Atenolol continue to hold. * TSH within normal limits. 07/29/23: * H/H this a.m. 7.6/26.2, plan to transfuse 2 units PRBC today * Order for PICC line to be placed * Continue Dopamine infusion * Plan for PPM tomorrow with cardiology. 07/30/23: * Hemoglobin 10.4, hematocrit 33.4 * Dopamine infusion discontinued. * Continue IV fluids overnight, will reassess morning * Patient taken to cardiac cath tech today for permanent pacemaker with Cardiology and had a Medtronic Micra 2 AV leadless pacemaker placed with anesthesia, without difficulty * Cardiology following * Right lower extremity restraint applied due to decreased mental status post PPM placement and inability to keep her leg straight until bedrest is up. May discontinue when bedrest is over. 07/31/23: * Hemoglobin 9.1, hematocrit 29.4 * IV fluids discontinued * Patient started on a heart healthy diet * Patient is postop day from a permanent pacemaker placement * Changed activity orders to out of bed to chair and ambulate * PT and OT also ordered * Cardiology still following, and started amiodarone today * Continue telemetry monitoring * Will transfer out of IMU today to regular floor with cardiac monitoring (2) Urinary retention: Code(s): R33.9 - Retention of urine, unspecified Status: Acute Assessment and Plan: 07/28/23: * Patient had difficulties urinating at the outside facility and was found to be retaining greater than 400 cc of urine. * Continue Diaz catheter for now. * Will need voiding trial prior to discharge. 07/29/23: * Continue with diaz catheter for now * BUN 33, Creatinine 1.20, eGFR 44 07/30/23: * Continue with Diaz catheter for now, will reassess in the morning for removal * BUN 20, creatinine 0.8 and GFR is>60 07/31/23: * Will remove Diaz catheter today * BUN 15, creatinine 0.7, creatinine clearance 43, EGFR greater than 60 * We will continue to monitor labs (3) Anemia: Code(s): D64.9 - Anemia, unspecified Status: Acute Assessment and Plan: 07/28/23: * Patient was found to have a hemoglobin of 7.3 at [place]. Repeat CBC with hemoglobin of 7.5. * Xarelto on hold. * Anemia labs ordered and revealed severe iron deficiency anemia. * Will do 3 days of iron infusions. * Daily iron supplement. * Monitor CBC daily. * Occult stool ordered. 07/29/23: * H/H 7.6/26.2 will give 2 Units PRBC today * Recheck H/H post 2nd transfusion 07/30/23: * H&H stable * No further transfusion needed * See above 07/31/23: * H&H is stable * No further transfusions needed * Resolved (4) Paroxysmal atrial fibrillation: Code(s): I48.0 - Paroxysmal atrial fibrillation Status: Acute Assessment and Plan: 07/28/23: * Currently in a sinus bradycardia. * Amlodipine decreased to 50 mg daily. * Atenolol on hold. * Xarelto on hold due to anemia 07/29/23: * Continue with current treatment plan 07/30/23: * Continue with current treatment plan (5) Chronic obstructive pulmonary disease: Code(s): J44.9
--- NOTE | 2023-07-31 08:59 | PM.IMPN ---
Progress Note: A&P Assessment and Plan (1) Bradycardia: Code(s): R00.1 - Bradycardia, unspecified Status: Inactive Assessment and Plan: 07/28/23: Recently started on amlodipine 200 mg daily; also on atenolol 50 mg daily though that was decreased. Dr. Barone has been consulted and his input is appreciated. Dr. Garcia decreased patient's amlodipine 250 mg daily. Atenolol continue to hold. TSH within normal limits. 07/29/23: H/H this a.m. 7.6/26.2, plan to transfuse 2 units PRBC today Order for PICC line to be placed Continue Dopamine infusion Plan for PPM tomorrow with cardiology. 07/30/23: Hemoglobin 10.4, hematocrit 33.4 Dopamine infusion discontinued. Continue IV fluids overnight, will reassess morning Patient taken to prosthetics lab technician today for permanent pacemaker with Cardiology and had a Medtronic Micra 2 AV leadless pacemaker placed with anesthesia, without difficulty Cardiology following Right lower extremity restraint applied due to decreased mental status post PPM placement and inability to keep her leg straight until bedrest is up. May discontinue when bedrest is over. 07/31/23: Hemoglobin 9.1, hematocrit 29.4 IV fluids discontinued Patient started on a heart healthy diet Patient is postop day from a permanent pacemaker placement Changed activity orders to out of bed to chair and ambulate PT and OT also ordered Cardiology still following, and started amiodarone today Continue telemetry monitoring Will transfer out of IMU today to regular floor with cardiac monitoring (2) Urinary retention: Code(s): R33.9 - Retention of urine, unspecified Status: Acute Assessment and Plan: 07/28/23: Patient had difficulties urinating at the outside facility and was found to be retaining greater than 400 cc of urine. Continue Diaz catheter for now. Will need voiding trial prior to discharge. 07/29/23: Continue with diaz catheter for now BUN 33, Creatinine 1.20, eGFR 44 07/30/23: Continue with Diaz catheter for now, will reassess in the morning for removal BUN 20, creatinine 0.8 and GFR is>60 07/31/23: Will remove Diaz catheter today BUN 15, creatinine 0.7, creatinine clearance 43, EGFR greater than 60 We will continue to monitor labs (3) Anemia: Code(s): D64.9 - Anemia, unspecified Status: Acute Assessment and Plan: 07/28/23: Patient was found to have a hemoglobin of 7.3 at [place]. Repeat CBC with hemoglobin of 7.5. Xarelto on hold. Anemia labs ordered and revealed severe iron deficiency anemia. Will do 3 days of iron infusions. Daily iron supplement. Monitor CBC daily. Occult stool ordered. 07/29/23: H/H 7.6/26.2 will give 2 Units PRBC today Recheck H/H post 2nd transfusion 07/30/23: H&H stable No further transfusion needed See above 07/31/23: H&H is stable No further transfusions needed Resolved (4) Paroxysmal atrial fibrillation: Code(s): I48.0 - Paroxysmal atrial fibrillation Status: Acute Assessment and Plan: 07/28/23: Currently in a sinus bradycardia. Amlodipine decreased to 50 mg daily. Atenolol on hold. Xarelto on hold due to anemia 07/29/23: Continue with current treatment plan 07/30/23: Continue with current treatment plan (5) Chronic obstructive pulmonary disease: Code(s): J44.9 - Chronic obstructive pulmonary disease, unspecified Status: Acute Assessment and Plan: 07/28/23: No acute evidence to suggest exacerbation. Continue maintenance inhalers and p.r.n. nebulizers. 07/29/23: Continue with current treatment plan Lungs course to auscultation, patient has raspy cough, will get a chest x-ray today. 07/30/23: Continue with current treatment (6) Tobacco abuse: Code(s): Z72.0 - Tobacco use Status: Acute Assessment and Plan: 07/28/23: Smoking cessation is imperative and was d
--- NOTE | 2023-07-31 09:02 | PCPTNOTE ---
Attempted PT evaluation, pt with respiratory. Will follow.
[2023-07-31] MEDS: FERROUS GLUCONATE 324 MG TABLET PO (09:10)
[2023-07-31] MEDS: LOSARTAN POTASSIUM 50 MG TABLET PO (09:10)
[2023-07-31] MEDS: CHOLECALCIFEROL 1,000 UNITS TABLET 2000 UNITS PO (09:10)
[2023-07-31] MEDS: IRON SUCROSE COMPLEX 500 MG in SODIUM CHLORIDE 0.9% IV 250 ML 78 MG IVPB (09:11)
--- NOTE | 2023-07-31 10:28 | PM.PNCARD ---
Progress Note: A&P Assessment and Plan (1) Symptomatic bradycardia: Code(s): R00.1 - Bradycardia, unspecified Status: Acute Plan 77-year-old lady status post implantation of permanent leadless pacemaker system yesterday for treatment of sick sinus syndrome/asystolic pauses also in the setting of paroxysmal AF with RVR. Device is functioning normally this morning. I cut and removed the [id number] stitch at the site of femoral venous access. Venous puncture site looks fine with no hematoma. Will sign off case at this time follow-up ongoing will be with Dr. Barone. Bon Adorno MD [facility] Subjective Date/time seen: Date of service: 07/31/23 10:28 Interval history: Follow-up visit in this 77-year-old lady with paroxysmal atrial fibrillation and sick sinus syndrome status post implantation of leadless pacemaker system yesterday. Device was interrogated this morning and is functioning normally. Patient resting comfortably without complaints Exam Const: Other: Frail elderly lady comfortable HENMT: Mouth: Yes moist mucous membranes Eyes: Sclera: sclerae normal Neck: Neck: supple Resp: Effort & Inspection: normal respiratory effort Auscultation: clear to auscultation bilaterally Cardio: Rate: regular rate Rhythm: regular rhythm Other: Intrinsic sinus rhythm pacemaker is inhibited GI: GI Palp: Yes Soft to palpation Auscultation: normal bowel sounds Skin: General skin exam: normal color Neuro: Other: Alert and oriented x3 Extrem: Other: No edema, good perfusion Objective Data Vital Signs Vital Signs: Vital Signs - 24 hr 07/30/23 12:00 07/30/23 14:15 07/30/23 14:30 Temperature 36.3 C L Pulse Rate 60 59 L 59 L Respiratory Rate 18 18 20 Blood Pressure 155/61 H 133/52 L 169/59 H Pulse Oximetry 100 95 94 Oxygen Delivery Room Air Room Air 07/30/23 14:45 07/30/23 15:00 07/30/23 15:30 Temperature Pulse Rate 60 59 L 59 L Respiratory Rate 20 20 18 Blood Pressure 166/66 H 146/67 H 156/56 H Pulse Oximetry 94 97 100 Oxygen Delivery Room Air Room Air Room Air 07/30/23 16:51 07/30/23 19:53 07/30/23 12:00 Temperature 36.7 C 37.0 C Pulse Rate 63 67 Respiratory Rate 16 16 Blood Pressure 132/69 141/51 H Pulse Oximetry 100 95 Oxygen Delivery Room Air 07/30/23 16:00 07/30/23 12:00 07/30/23 16:00 Temperature Pulse Rate 58 L 61 Respiratory Rate Blood Pressure Pulse Oximetry Oxygen Delivery Room Air 07/30/23 18:00 07/30/23 16:00 07/30/23 20:00 Temperature 36.3 C L Pulse Rate 64 61 Respiratory Rate 20 Blood Pressure 122/43 L Pulse Oximetry 100 Oxygen Delivery Room Air 07/30/23 23:47 07/31/23 00:00 07/30/23 20:00 Temperature 36.6 C Pulse Rate 64 66 Respiratory Rate Blood Pressure 140/48 L Pulse Oximetry 98 Oxygen Delivery Room Air 07/30/23 22:00 07/31/23 00:00 07/31/23 02:00 Temperature Pulse Rate 70 64 62 Respiratory Rate Blood Pressure Pulse Oximetry Oxygen Delivery 07/31/23 03:57 07/31/23 04:00 07/31/23 04:00 Temperature 36.8 C Pulse Rate 66 65 Respiratory Rate 16 Blood Pressure 136/52 L Pulse Oximetry 95 Oxygen Delivery Room Air 07/31/23 06:00 07/31/23 08:00 Temperature 36.7 C Pulse Rate 61 63 Respiratory Rate 19 Blood Pressure 136/59 L Pulse Oximetry 94 Oxygen Delivery Intake/Output Intake/Output: Intake & Output 07/28/23 07/29/23 07/30/23 07/31/23 23:59 23:59 23:59 23:59 Intake Total 1340 1695 352 400 Output Total 530 621 1916 350 Balance 1 9765 1177 50 Meds/Results Medications: Active Medications Generic Name Dose Route Start Last Admin Trade Name Freq PRN Reason Stop Dose Admin Acetaminophen 650 mg 07/27/23 22:38 Acetaminophen 325 Mg Tablet PO Q4H PRN Mild Pain (1-3) or Fever Amiodarone HCl 100 mg 07/31/23 08:00 07/31/23 09:12 Amiodarone Hcl 100 Mg Tablet PO Not Given
--- NOTE | 2023-07-31 12:00 | ADMGEN ---
This patient, Kelly Kaba, was admitted to [facility] Surg Room 306-01 @ 1200. Patient/family oriented to hospital policies and general routines including ID bracelet, bed and alarms, visiting hours, pain management, procedures, bathroom and other care routines, personal items, smoking policy, room service/diet, and visiting hours. Information on how to activate the Rapid Response Team has been discussed. Patient/Family are encouraged to report perceived risks to care and to ask questions if they do not understand what they are told or what they should do.
--- NOTE | 2023-07-31 12:14 | PC.NURSE ---
This patient, Kelly Kaba, was transferred to [facility] on 07/31/23 at 1145. Personal belongings sent with patient. Report given to RN. Appropriate documentation sent with patient.
[2023-07-31 16:48] LABS: Glucose Point of Care 143 mg/dl (65-105)
[2023-07-31] MEDS: ATORVASTATIN 40 MG TABLET BY MOUTH (20:14)
[2023-07-31 23:50] LABS: Glucose Point of Care 161 mg/dl (65-105)
[2023-08-01] VITALS (12 sets, daily range): BP systolic 121–130; BP diastolic 47–56; PULSE 54–65; RESP 18–20; TEMP 36.3–37.9; O2SAT 93–99
--- NOTE | 2023-08-01 00:02 | PC.NURSE ---
reported change in mental status to MD Islas, pt is difficult to arouse. Pt has been drowsy and difficulty to arouse all shift so far. Femoral dressing from pacemaker placement has been saturated twice, once on day shift, and again now. Stat H&h, continuous pulse ox, tele ordered for patient at this time. Md Islas to place other lab orders.
[2023-08-01 00:32] LABS: Glucose Point of Care 117 mg/dl (65-105)
[2023-08-01] MEDS: ACETAMINOPHEN 325 MG TABLET 650 MG PO ×2 (00:39→09:47)
[2023-08-01 01:07] LABS: Hematocrit 27.5 % (37.0-47.0); Hemoglobin 8.5 g/dL (12.0-15.0)
[2023-08-01 01:18] LABS: INR 1.4; Prothrombin Time 17.9 Seconds (11.1-14.7)
[2023-08-01 01:19] LABS: Partial Thromboplastin Time 54.7 SECONDS (22.3-36.8)
[2023-08-01 07:22] LABS: Basophils Percent Auto 0.3 % (0.2-1.2); Eosinophils Absolute Auto 0.1 K/mm3 (0-0.3); Eosinophils Percent Auto 0.5 % (0-4.4); Hematocrit 27.7 % (37.0-47.0); Hemoglobin 8.5 g/dL (12.0-15.0); Immature Granulocyte Absolute 0.07 K/mm3 (0.00-0.031); Immature Granulocyte Percent A 0.7 % (0-0.5); Lymphocytes Absolute Auto 1.15 K/mm3 (0.9-3.2); Lymphocytes Percent Auto 10.7 % (18.3-44.2); Mean Corpuscular HGB Conc 30.7 g/dl (32-36); Mean Corpuscular Hemoglobin 24.9 pg (26-34); Mean Corpuscular Volume 81.2 fl (80-100); Mean Platelet Volume 10.3 fl (7.4-10.4); Monocytes Absolute Auto 1.1 K/mm3 (0.1-0.6); Neutrophils Absolute Auto 8.4 K/mm3 (1.3-6.7); Neutrophils Percent Auto 77.8 % (45.5-73.1); Platelet Count Result 297 k/mm3 (150-375); Red Blood Count 3.41 M/mm3 (4.2-5.4); Red Cell Distribution Width 20.2 % (11.5-14.5); White Blood Count 10.8 K/mm3 (4.5-10.0)
--- NOTE | 2023-08-01 07:29 | PM.PNCARD ---
Progress Note: A&P Assessment and Plan (1) Paroxysmal atrial fibrillation: Code(s): I48.0 - Paroxysmal atrial fibrillation Status: Acute Assessment and Plan: In sinus rhythm. HR did go as low at 38 bpm. Stopped Atenolol. Tried low dose Amiodarone 50 mg daily but she had pauses up to 3.5 seconds and bradycardia with slow junctional rhythm in low 30's bpm. S/P leadless PPM implant. [id number] 5. Was on Xarelto, last dose on Thursday. Resumed Amiodarone low dose 100 mg daily to maintain sinus rhythm. (2) Anemia: Code(s): D64.9 - Anemia, unspecified Status: Acute Assessment and Plan: Workup and management as per hospitalist. Transfused 2 units PRBC on 07/29/23. (3) Hypertension associated with diabetes: Code(s): E11.59 - Type 2 diabetes mellitus with other circulatory complications; I10 - Essential (primary) hypertension Status: Acute Assessment and Plan: Stable. (4) Nicotine dependence: Qualifiers: Nicotine product type: cigarettes Substance use status: uncomplicated Qualified Code(s): F17.210 - Nicotine dependence, cigarettes, uncomplicated Code(s): F17.200 - Nicotine dependence, unspecified, uncomplicated Status: Acute Assessment and Plan: Counseled regarding smoking cessation. (5) Urinary retention: Code(s): R33.9 - Retention of urine, unspecified Status: Acute Assessment and Plan: Workup as per hospitalist. (6) Symptomatic bradycardia: Code(s): R00.1 - Bradycardia, unspecified Status: Acute Assessment and Plan: Monitor on telemetry. Started Dopamine drip to maintain HR above 50 bpm and SBP>100 mmHg. [place] [facility] [place] and appreciate Dr. Viera's evaluation. S/P Medtronic Micra leadless pacemaker implant by Dr. Adorno on 07/30/23. (7) Tachy-jordon syndrome: Code(s): I49.5 - Sick sinus syndrome Status: Acute (8) Collapse of left lung: Code(s): J98.11 - Atelectasis Status: Acute Assessment and Plan: CXR showed worsening of LLL collapse or pneumonia. Started incentive spirometer. May need pulmonary toilet. Management as per hospitalist. Subjective Date/time seen: 08/01/23 07:29 Interval history: Denies chest pain or sob. Hard of hearing. Exam Const: General: cooperative, healthy appearing and comfortable Orientation/consciousness: oriented to person, oriented to place and oriented to time Resp: Auscultation: no crackles, no rales, no rhonchi, no wheezes and diminished lung sounds (coarse breath sounds) Cardio: Rate: regular rate and bradycardic Rhythm: regular rhythm Heart sounds: no murmurs Neuro: General: oriented to person, oriented to place and oriented to time Extrem: Right lower extremity: no edema Left lower extremity: no edema Objective Data Vital Signs Vital Signs: Vital Signs - 24 hr 07/31/23 08:00 07/31/23 08:00 07/31/23 08:00 Temperature 98.1 F Pulse Rate 63 64 64 Respiratory Rate 19 19 Blood Pressure 136/59 L Pulse Oximetry 94 94 Oxygen Delivery Room Air 07/31/23 10:00 07/31/23 14:00 07/31/23 16:00 Temperature 97.5 F L Pulse Rate 64 66 67 Respiratory Rate 16 Blood Pressure 122/49 L Pulse Oximetry 95 Oxygen Delivery 07/31/23 12:00 07/31/23 20:23 07/31/23 20:00 Temperature 98.1 F Pulse Rate 60 Respiratory Rate 18 Blood Pressure 128/52 L Pulse Oximetry 95 95 Oxygen Delivery Room Air Room Air 07/31/23 20:00 08/01/23 00:39 08/01/23 00:00 Temperature 100.3 F H Pulse Rate 63 64 65 Respiratory Rate 18 Blood Pressure 130/53 L Pulse Oximetry 95 Oxygen Delivery 08/01/23 00:39 08/01/23 01:23 08/01/23 00:02 Temperature 100.3 F H 98.9 F 98.9 F Pulse Rate 64 Respiratory Rate 18 Blood Pressure 130/53 L Pulse Oximetry 95 Oxygen Delivery Room Air 08/01/23 02:39 08/01/23 04:00 08/01/23 04:00 Temperature 97.4 F L Pulse Rate 54 L 59 L Respirat
[2023-08-01 07:40] LABS: Alanine Aminotransferase 15 U/L (6-35); Alkaline Phosphatase 104 U/L (38-126); Anion Gap 8 mmol/L (8-16); Aspartate Amino Transferase 22 U/L (14-36); Bilirubin,Total 0.9 mg/dL (0.2-1.3); Blood Urea Nitrogen 16 mg/dL (7-17); Carbon Dioxide 25 mmol/L (22-30); Chloride 108 mmol/L (98-107); Estimated CRCL calculation 43 ml/min; Estimated Glomerular Filt Rate > 60; Glucose 125 mg/dL (65-110); Potassium 3.3 mmol/L (3.4-5.0); Sodium 141 mmol/L (137-145)
[2023-08-01 07:40] LABS: Glucose Point of Care 118 mg/dl (65-105)
--- NOTE | 2023-08-01 08:43 | P.PNIM_ITS ---
Progress Note: A&P Assessment and Plan (1) Bradycardia: Code(s): R00.1 - Bradycardia, unspecified Status: Inactive Assessment and Plan: 07/28/23: * Recently started on amlodipine 200 mg daily; also on atenolol 50 mg daily though that was decreased. * Dr. Barone has been consulted and his input is appreciated. * Dr. Garcia decreased patient's amlodipine 250 mg daily. * Atenolol continue to hold. * TSH within normal limits. 07/29/23: * H/H this a.m. 7.6/26.2, plan to transfuse 2 units PRBC today * Order for PICC line to be placed * Continue Dopamine infusion * Plan for PPM tomorrow with cardiology. 07/30/23: * Hemoglobin 10.4, hematocrit 33.4 * Dopamine infusion discontinued. * Continue IV fluids overnight, will reassess morning * Patient taken to school laboratory technician today for permanent pacemaker with Cardiology and had a Medtronic Micra 2 AV leadless pacemaker placed with anesthesia, without difficulty * Cardiology following * Right lower extremity restraint applied due to decreased mental status post PPM placement and inability to keep her leg straight until bedrest is up. May discontinue when bedrest is over. 07/31/23: * Hemoglobin 9.1, hematocrit 29.4 * IV fluids discontinued * Patient started on a heart healthy diet * Patient is postop day from a permanent pacemaker placement * Changed activity orders to out of bed to chair and ambulate * PT and OT also ordered * Cardiology still following, and started amiodarone today * Continue telemetry monitoring * Will transfer out of IMU today to regular floor with cardiac monitoring 08/01/23: * Patient is post op day 2 from a PPM placement * Continue with PT and OT * Cardiology following * Continue telemetry monitoring. * CXR yesterday revealing worsening volume loss of left hemithorax with worsened airspace opacities in left mid and lower lung zones consistent with atelectasis * I attempted education of the IS however she was unable to perform after multiple attempts, will order Pep therapy considering her non productive cough * Will repeat CXR in the morning. (2) Urinary retention: Code(s): R33.9 - Retention of urine, unspecified Status: Acute Assessment and Plan: 07/28/23: * Patient had difficulties urinating at the outside facility and was found to be retaining greater than 400 cc of urine. * Continue Diaz catheter for now. * Will need voiding trial prior to discharge. 07/29/23: * Continue with diaz catheter for now * BUN 33, Creatinine 1.20, eGFR 44 07/30/23: * Continue with Diaz catheter for now, will reassess in the morning for removal * BUN 20, creatinine 0.8 and GFR is>60 07/31/23: * Will remove Diaz catheter today * BUN 15, creatinine 0.7, creatinine clearance 43, EGFR greater than 60 * We will continue to monitor labs 08/01/23 * Voiding without difficulty * BUN 16, creatinine 0.70 * Continue to trend labs (3) Paroxysmal atrial fibrillation: Code(s): I48.0 - Paroxysmal atrial fibrillation Status: Acute Assessment and Plan: 07/28/23: * Currently in a sinus bradycardia. * Amlodipine decreased to 50 mg daily. * Atenolol on hold. * Xarelto on hold due to anemia 07/29/23: * Continue with current treatment plan 07/30/23: * Continue with current treatment plan (4) Chronic obstructive pulmonary disease: Code(s): J44.9 - Chronic obstructive pulmonary disease, unspecified Status: Acute Assessment and Plan: 07/28/23: * No a
--- NOTE | 2023-08-01 08:43 | PM.IMPN ---
Progress Note: A&P Assessment and Plan (1) Bradycardia: Code(s): R00.1 - Bradycardia, unspecified Status: Inactive Assessment and Plan: 07/28/23: Recently started on amlodipine 200 mg daily; also on atenolol 50 mg daily though that was decreased. Dr. Barone has been consulted and his input is appreciated. Dr. Garcia decreased patient's amlodipine 250 mg daily. Atenolol continue to hold. TSH within normal limits. 07/29/23: H/H this a.m. 7.6/26.2, plan to transfuse 2 units PRBC today Order for PICC line to be placed Continue Dopamine infusion Plan for PPM tomorrow with cardiology. 07/30/23: Hemoglobin 10.4, hematocrit 33.4 Dopamine infusion discontinued. Continue IV fluids overnight, will reassess morning Patient taken to equipment operator/laborer today for permanent pacemaker with Cardiology and had a Medtronic Micra 2 AV leadless pacemaker placed with anesthesia, without difficulty Cardiology following Right lower extremity restraint applied due to decreased mental status post PPM placement and inability to keep her leg straight until bedrest is up. May discontinue when bedrest is over. 07/31/23: Hemoglobin 9.1, hematocrit 29.4 IV fluids discontinued Patient started on a heart healthy diet Patient is postop day from a permanent pacemaker placement Changed activity orders to out of bed to chair and ambulate PT and OT also ordered Cardiology still following, and started amiodarone today Continue telemetry monitoring Will transfer out of IMU today to regular floor with cardiac monitoring 08/01/23: Patient is post op day 2 from a PPM placement Continue with PT and OT Cardiology following Continue telemetry monitoring. CXR yesterday revealing worsening volume loss of left hemithorax with worsened airspace opacities in left mid and lower lung zones consistent with atelectasis I attempted education of the IS however she was unable to perform after multiple attempts, will order Pep therapy considering her non productive cough Will repeat CXR in the morning. (2) Urinary retention: Code(s): R33.9 - Retention of urine, unspecified Status: Acute Assessment and Plan: 07/28/23: Patient had difficulties urinating at the outside facility and was found to be retaining greater than 400 cc of urine. Continue Diaz catheter for now. Will need voiding trial prior to discharge. 11/15/23: Continue with diaz catheter for now BUN 33, Creatinine 1.20, eGFR 44 07/30/23: Continue with Diaz catheter for now, will reassess in the morning for removal BUN 20, creatinine 0.8 and GFR is>60 07/31/23: Will remove Diaz catheter today BUN 15, creatinine 0.7, creatinine clearance 43, EGFR greater than 60 We will continue to monitor labs 08/01/23 Voiding without difficulty BUN 16, creatinine 0.70 Continue to trend labs (3) Paroxysmal atrial fibrillation: Code(s): I48.0 - Paroxysmal atrial fibrillation Status: Acute Assessment and Plan: 07/28/23: Currently in a sinus bradycardia. Amlodipine decreased to 50 mg daily. Atenolol on hold. Xarelto on hold due to anemia 07/29/23: Continue with current treatment plan 07/30/23: Continue with current treatment plan (4) Chronic obstructive pulmonary disease: Code(s): J44.9 - Chronic obstructive pulmonary disease, unspecified Status: Acute Assessment and Plan: 07/28/23: No acute evidence to suggest exacerbation. Continue maintenance inhalers and p.r.n. nebulizers. 07/29/23: Continue with current treatment plan Lungs course to auscultation, patient has raspy cough, will get a chest x-ray today. 07/30/23: Continue with current treatment (5) Tobacco abuse: Code(s): Z72.0 - Tobacco use Status: Acute Assessment and Plan: 07/28/23: Smoking cessation is imperative and was discussed. 07/29/23: Continue with current treatment plan 07/30/23:
[2023-08-01] MEDS: CHOLECALCIFEROL 1,000 UNITS TABLET 2000 UNITS PO (09:47)
[2023-08-01] MEDS: AMIODARONE HCL 100 MG TABLET PO (09:48)
[2023-08-01] MEDS: LOSARTAN POTASSIUM 25 MG TABLET PO (09:48)
[2023-08-01] MEDS: FERROUS GLUCONATE 324 MG TABLET PO (09:48)
[2023-08-01] MEDS: POTASSIUM CHLORIDE 20 MEQ ER TABLET 40 MEQ PO (09:50)
[2023-08-01 17:52] LABS: Glucose Point of Care 120 mg/dl (65-105)
[2023-08-01 17:52] LABS: Glucose Point of Care 153 mg/dl (65-105)
[2023-08-01] MEDS: ATORVASTATIN 40 MG TABLET BY MOUTH (20:06)
[2023-08-01 21:30] LABS: Glucose Point of Care 103 mg/dl (65-105)
[2023-08-02] VITALS (7 sets, daily range): BP systolic 132–136; BP diastolic 52–58; PULSE 54–65; RESP 16–18; TEMP 36.4–36.6; O2SAT 100
[2023-08-02 07:31] LABS: Basophils Percent Auto 0.3 % (0.2-1.2); Eosinophils Absolute Auto 0.2 K/mm3 (0-0.3); Eosinophils Percent Auto 1.9 % (0-4.4); Hematocrit 26.8 % (37.0-47.0); Hemoglobin 8.2 g/dL (12.0-15.0); Immature Granulocyte Absolute 0.04 K/mm3 (0.00-0.031); Immature Granulocyte Percent A 0.4 % (0-0.5); Lymphocytes Absolute Auto 1.19 K/mm3 (0.9-3.2); Lymphocytes Percent Auto 13.3 % (18.3-44.2); Mean Corpuscular HGB Conc 30.6 g/dl (32-36); Mean Corpuscular Hemoglobin 25.2 pg (26-34); Mean Corpuscular Volume 82.5 fl (80-100); Mean Platelet Volume 10.4 fl (7.4-10.4); Monocytes Absolute Auto 0.8 K/mm3 (0.1-0.6); Neutrophils Absolute Auto 6.7 K/mm3 (1.3-6.7); Neutrophils Percent Auto 75.1 % (45.5-73.1); Platelet Count Result 301 k/mm3 (150-375); Red Blood Count 3.25 M/mm3 (4.2-5.4); Red Cell Distribution Width 20.8 % (11.5-14.5)
[2023-08-02 07:43] LABS: Alanine Aminotransferase 14 U/L (6-35); Alkaline Phosphatase 103 U/L (38-126); Anion Gap 7 mmol/L (8-16); Aspartate Amino Transferase 21 U/L (14-36); Bilirubin,Total 0.7 mg/dL (0.2-1.3); Blood Urea Nitrogen 15 mg/dL (7-17); Calcium 8.9 mg/dL (8.4-10.2); Carbon Dioxide 25 mmol/L (22-30); Chloride 108 mmol/L (98-107); Estimated CRCL calculation 43 ml/min; Estimated Glomerular Filt Rate > 60; Glucose 95 mg/dL (65-110); Potassium 3.8 mmol/L (3.4-5.0); Sodium 140 mmol/L (137-145)
--- NOTE | 2023-08-02 08:00 | PM.PNCARD ---
Progress Note: A&P Assessment and Plan (1) Paroxysmal atrial fibrillation: Code(s): I48.0 - Paroxysmal atrial fibrillation Status: Acute Assessment and Plan: In sinus rhythm. HR did go as low at 38 bpm. Stopped Atenolol. Tried low dose Amiodarone 50 mg daily but she had pauses up to 3.5 seconds and bradycardia with slow junctional rhythm in low 30's bpm. S/P leadless PPM implant. [id number] 5. Was on Xarelto, last dose on Thursday. Resumed Amiodarone low dose 100 mg daily to maintain sinus rhythm. Due to worsening anemia will hold off on resuming Xarelto. (2) Anemia: Code(s): D64.9 - Anemia, unspecified Status: Acute Assessment and Plan: Workup and management as per hospitalist. Transfused 2 units PRBC on 07/29/23. (3) Hypertension associated with diabetes: Code(s): E11.59 - Type 2 diabetes mellitus with other circulatory complications; I10 - Essential (primary) hypertension Status: Acute Assessment and Plan: Stable. (4) Nicotine dependence: Qualifiers: Nicotine product type: cigarettes Substance use status: uncomplicated Qualified Code(s): F17.210 - Nicotine dependence, cigarettes, uncomplicated Code(s): F17.200 - Nicotine dependence, unspecified, uncomplicated Status: Acute Assessment and Plan: Counseled regarding smoking cessation. (5) Urinary retention: Code(s): R33.9 - Retention of urine, unspecified Status: Acute Assessment and Plan: Workup as per hospitalist. (6) Symptomatic bradycardia: Code(s): R00.1 - Bradycardia, unspecified Status: Acute Assessment and Plan: Monitor on telemetry. Started Dopamine drip to maintain HR above 50 bpm and SBP>100 mmHg. Consulted [facility] [place] for PPM and appreciate Dr. Viera's evaluation. S/P Medtronic Micra leadless pacemaker implant by Dr. Adorno on 07/30/23. (7) Tachy-jordon syndrome: Code(s): I49.5 - Sick sinus syndrome Status: Acute (8) Collapse of left lung: Code(s): J98.11 - Atelectasis Status: Acute Assessment and Plan: CXR showed worsening of LLL collapse or pneumonia. Started incentive spirometer. May need pulmonary toilet. Management as per hospitalist. Subjective Date/time seen: 08/02/23 08:00 Interval history: Denies chest pain or sob. Hard of hearing. Exam Const: General: cooperative, healthy appearing and comfortable Orientation/consciousness: oriented to person, oriented to place and oriented to time Resp: Auscultation: clear to auscultation bilaterally, no crackles, no rales, no rhonchi and no wheezes Cardio: Rate: regular rate Rhythm: regular rhythm Heart sounds: no murmurs Neuro: General: oriented to person, oriented to place and oriented to time Extrem: Right lower extremity: no edema Left lower extremity: no edema Objective Data Vital Signs Vital Signs: Vital Signs - 24 hr 08/01/23 09:46 08/01/23 09:48 08/01/23 11:31 Temperature Pulse Rate 62 Respiratory Rate Blood Pressure Pulse Oximetry Oxygen Delivery Room Air Room Air 08/01/23 09:45 08/01/23 16:00 08/01/23 20:00 Temperature 97.6 F Pulse Rate 64 Respiratory Rate 18 Blood Pressure 123/56 L Pulse Oximetry 94 94 Oxygen Delivery Room Air Room Air 08/01/23 20:00 08/01/23 20:01 08/01/23 19:45 Temperature 97.5 F L 97.5 F L Pulse Rate 56 L 54 L 54 L Respiratory Rate 20 20 Blood Pressure 126/51 L 126/51 L Pulse Oximetry 99 99 Oxygen Delivery 08/02/23 00:00 08/02/23 04:00 08/02/23 06:30 Temperature 97.6 F Pulse Rate 56 L 57 L 55 L Respiratory Rate 18 Blood Pressure 132/52 L Pulse Oximetry 100 Oxygen Delivery Intake/Output Intake/Output: Intake & Output 07/30/23 07/31/23 08/01/23 08/02/23 23:59 23:59 23:59 23:59 Intake Total 352 1275 530 100 Output Total 1525 350 Balance -1173 925 530 100 Meds/Results Medications: Active Medications Generic Nam
--- NOTE | 2023-08-02 08:11 | PM.DS ---
DS: Admitting Diagnosis Discharge Date 08/02/23 Admitting Diagnosis Bradycardia Urinary retention Paroxysmal atrial fibrillation COPD Tobacco use Alcohol use disorder Type 2 DM DS: Summary Hospital Course Reason for hospitalization: Bradycardia Hospital Course: This is a 77 year old female who presented to the hospital on 07/27/23 for bradycardia. She initially presented to [facility] and was transferred here for direct admission into IMU for closer monitoring and cardiology consultation for PPM placement. Patient reported that she was feeling weak, fatigued, and lightheaded for about 1 week prior to coming to the hospital. In ER they found her HR to be in the 30's however stable blood pressures. She was placed on Dopamine infusion. On 07/29/23 her H/H was low and we transfused 2u PRBC. On 07/30/23 patient went to cardiac quality assurance lab technician and had PPM placed without difficulty. She remained stable and was moved out of IMU and worked with PT and OT. Labs today reveal WBC 9.0, Hgb 8.2, Hct 26.8, Na+ 140, 3.8, Chlor 108, BUN 15, Creatinine 0.70. Blood sugars ranging 93-163. Patient is stable for discharge. She will need to follow up with her PCP and State [employer] Relations Deputy Director in the next week. Status at Discharge Cognitive/behavioral status at discharge: Alert and oriented x4 Functional status at discharge: uses cane/walker Overall status at discharge: patient is progressing back to baseline Time Spent with Patient Time attestation: Total time spent providing and/or coordinating discharge services: Time spent: Greater than 30 minutes Exam Narrative: General: In no acute distress, well nourished Head: atraumatic, no encephalopathy Eyes: EOMI, PERRLA, slcera clear ENT: moist mucous membranes, nasal passages clear Neck: supple, no JVD, no adenopathy, trachea midline Cardiac: Normal S1 and S2. No murmur, gallops or friction rubs, peripheral pulses intact. Respiratory: Lungs clear to auscultation, no adventitious lung sounds Gastrointestinal: soft, non-distended, non-tender, normoactive bowel sounds. : voiding without difficulty. Extremities: moves all extremities well, no edema, good ROM, strength 5/5 Skin: clean, dry, intact. No wounds or lesions. Neuro: Alert and oriented x4, cranial nerves intact, no neuro deficits. Psych: normal mood, normal affect, interactive DS: Data Data Completed and Pending Completed studies during hospitalization: CXR x6 Pending studies at discharge: none Labs on day of discharge: Labs from last 24 hours 08/02/23 08/01/23 08/01/23 06:23 19:49 17:35 WBC 9.0 RBC 3.25 L Hgb 8.2 L Hct 26.8 L MCV 82.5 MCH 25.2 L MCHC 30.6 L RDW 20.8 H Plt Count 301 MPV 10.4 Immature Gran % (Auto) 0.4 Neut % (Auto) 75.1 H Lymph % (Auto) 13.3 L [place] % (Auto) 9.0 H Eos % (Auto) 1.9 Baso % (Auto) 0.3 Lymph # (Auto) 1.19 [place] # (Auto) 0.8 H Eos # (Auto) 0.2 Baso # (Auto) 0.0 Abs Immat Gran (auto) 0.04 H Absolute Neuts (auto) 6.7 Absolute Nucleated RBC 0.0 Nucleated RBC % 0.0 Sodium 140 Potassium 3.8 Chloride 108 H Carbon Dioxide 25 Anion Gap 7 L BUN 15 Creatinine 0.70 Estim Creat Clear Calc 43 Estimated GFR > 60 Glucose 95 POC Capillary Glucose 103 120 H Calcium 8.9 Total Bilirubin 0.7 AST 21 ALT 14 Alkaline Phosphatase 103 Total Protein 6.0 L Albumin 3.0 L 08/01/23 12:17 WBC RBC Hgb Hct MCV MCH MCHC RDW Plt Count MPV Immature Gran % (Auto) Neut % (Auto) Lymph % (Auto) [place] % (Auto) Eos % (Auto) Baso % (Auto) Lymph # (Auto) [place] # (Auto) Eos # (Auto) Baso # (Auto) Abs Immat Gran (auto) Absolute Neuts (auto) Absolute Nucleated RBC Nucleated RBC % Sodium Potassium Chloride Carbon Dioxide Anion Gap BUN Creatinine Estim Creat Clear Calc Estimated GFR Glucose POC Capillary Glucose 153 H Calcium Total Bilirubin AST ALT Alkal
[2023-08-02 08:26] LABS: Glucose Point of Care 93 mg/dl (65-105)
[2023-08-02] MEDS: ACETAMINOPHEN 325 MG TABLET 650 MG PO (08:41)
[2023-08-02] MEDS: AMIODARONE HCL 100 MG TABLET PO (08:42)
[2023-08-02] MEDS: FERROUS GLUCONATE 324 MG TABLET PO (08:42)
[2023-08-02] MEDS: CHOLECALCIFEROL 1,000 UNITS TABLET 2000 UNITS PO (08:42)
[2023-08-02] MEDS: LOSARTAN POTASSIUM 25 MG TABLET PO (08:42)
[2023-08-02 12:07] LABS: Glucose Point of Care 164 mg/dl (65-105)
[2023-08-02 17:26] LABS: Glucose Point of Care 98 mg/dl (65-105)
== END 2023-08-02 18:30 | disposition home or self-care (01) | DRG 229 ==
LOC: ANHIMU 07-30 20:07 → ANH3MEDSUR 07-31 12:14
PROVIDERS: Internal Medicine; Internal Medicine Critical Care Medicine; Physician Assistant; Specialist; Admitting Provider Internal Medicine; PCP Nurse Practitioner Family; Visit Provider Nurse Practitioner Acute Care
PROC: 02HK3NZ Insertion of Intracardiac Pacemaker into Right Ventricle, Percutaneous Approach (ICD-10-PCS; CPT 33274; principal; 2023-07-30 13:00)
DX: I49.5 Sick sinus syndrome (principal); I48.92 Unspecified atrial flutter; J98.11 Atelectasis; I48.0 Paroxysmal atrial fibrillation; I69.392 Facial weakness following cerebral infarction; I69.328 Other speech and language deficits following cerebral infarction; F17.210 Nicotine dependence, cigarettes, uncomplicated; R33.9 Retention of urine, unspecified; D50.9 Iron deficiency anemia, unspecified; F10.10 Alcohol abuse, uncomplicated; E11.311 Type 2 diabetes mellitus with unspecified diabetic retinopathy with macular edema; J44.9 Chronic obstructive pulmonary disease, unspecified; E11.9 Type 2 diabetes mellitus without complications; Z79.84 Long term (current) use of oral hypoglycemic drugs; Z79.82 Long term (current) use of aspirin; Z96.651 Presence of right artificial knee joint; Z79.01 Long term (current) use of anticoagulants
CPT/HCPCS: 33274; 36415; 36430; 36569; 71045; 71046; 80048; 80053; 82607; 82728; 82746; 82948; 83540; 83550; 83735; 84443; 84466; 85014; 85018; 85025; 85027; 85610; 85730; 86850; 86900; 86901; 86923; 93005; 96361; 96374; 97161; 97165; A9270; C1786; C1894; G0378; G0379; J0461; J1265; J1644; J1756; J1815; J2250; J3010; J7030; J7040; J7050; P9016

== ENCOUNTER 2023-08-10 11:26 | Outpatient (CLI) | payer MEDICARE, SELFPAY ==
[2023-08-10 11:38] LABS: Basophils Absolute Auto 0.04 K/mm3 (0.00-0.10); Basophils Percent Auto 0.6 % (0.0-1.0); Eosinophils Absolute Auto 0.17 K/mm3 (0.02-0.50); Eosinophils Percent Auto 2.4 % (1.0-6.0); Hematocrit 32.5 % (35.0-42.0); Hemoglobin 9.6 g/dL (11.7-13.8); Immature Granulocyte Absolute 0.06 K/mm3 (0.00-0.00); Immature Granulocyte Percent A 0.8 % (0.0-0.0); Lymphocytes Absolute Auto 1.35 K/mm3 (1.10-4.50); Mean Corpuscular HGB Conc 29.5 g/dL (32.0-36.0); Mean Corpuscular Hemoglobin 25.2 pg (27.0-31.0); Mean Corpuscular Volume 85.3 fL (78.0-102.0); Mean Platelet Volume 9.9 fl (9.2-11.8); Monocytes Absolute Auto 0.68 K/mm3 (0.10-0.90); Monocytes Percent Auto 9.6 % (2.0-11.0); Neutrophils Absolute Auto 4.8 K/mm3 (1.7-7.2); Neutrophils Percent Auto 67.6 % (50.0-70.0); Platelet Count Result 391 K/mm3 (150-420); Red Blood Count 3.81 M/mm3 (4.20-5.40); Red Cell Distribution Width 24.7 % (11.6-14.4); White Blood Count 7.1 K/mm3 (4.8-10.8)
[2023-08-10 12:28] LABS: Alanine Aminotransferase 41 U/L (14-59); Alkaline Phosphatase 107 U/L (46-116); Anion Gap 7 mmol/L (8-16); Aspartate Amino Transferase 27 U/L (15-37); Bilirubin,Total 0.4 mg/dL (0.00-1.00); Blood Urea Nitrogen 25 mg/dL (7-18); Calcium 8.9 mg/dL (8.5-10.1); Carbon Dioxide 31 mmol/L (21-32); Chloride 104 mmol/L (98-108); Estimated Glomerular Filt Rate 55; Glucose 95 mg/dL (70-99); Iron 66 ug/dL (50-170); Osmolality Calculated 298 mOsm/kg (285-295); Potassium 4.6 mmol/L (3.5-5.1); Sodium 142 mmol/L (136-145); Total Protein 6.2 g/dL (6.4-8.2)
[2023-08-10 12:29] LABS: Ferritin > 1000 ng/mL (8-252)
== END 2023-08-10 11:27 | disposition home or self-care (01) ==
LOC: CHSLAB 11:28
PROVIDERS: PCP Nurse Practitioner Family; Visit Provider Nurse Practitioner Family
DX: D64.9 Anemia, unspecified (principal)
CPT/HCPCS: 36415; 80053; 82728; 83540; 85025

== ENCOUNTER 2023-10-23 12:24 | Emergency (ER) | payer MEDICARE, SELFPAY ==
--- NOTE | ~2023-10-23 | XR_ITS ---
Right ankle Technique: AP, oblique, and lateral views were obtained. Clinical History: Pain Findings: No acute fracture or dislocation is seen. Osseous alignment is anatomic. There is generaliz ed osteopenia. Ankle mortise and other visualized joint spaces are preserved. Soft tissues are other schwab unremarkable. Impression: No fracture or dislocation seen. Generalized osteopenia. If there is concern for radiographically occ ult fracture, then consider MR for more sensitive evaluation for fracture. Reviewed, dictated and finalized at location . ING SUPERVISOR Impression: No fracture or dislocation seen. Generalized osteopenia. If there is concern fo r radiographically occult fracture, then consider MR for more sensitive evaluat ion for fracture.
[2023-10-23 12:24] VITALS: BP 130/68; PULSE 80; RESP 18; TEMP 36.4; O2SAT 100
[2023-10-23] MEDS: FUROSEMIDE 40 MG TABLET PO (12:58)
[2023-10-23 13:00] VITALS: BP 127/65; PULSE 83; RESP 17; O2SAT 99
[2023-10-23 13:30] VITALS: BP 112/66; PULSE 81; RESP 17; O2SAT 99
--- NOTE | 2023-10-23 13:55 | ED.EXTPRO ---
HPI - Extremity Problem General Chief complaint: Extremity Problem,Nontraumatic Stated complaint: right foot and ankle pain Time Seen by Provider: 10/23/23 12:36 Source: patient Mode of arrival: ambulatory Limitations: no limitations History of Present Illness HPI Narrative: patient is a 78-year-old female with significant past medical history that presents today for right ankle edema. Patient is a very good ankle edema for the last couple days now. He has gotten worsen last day. She states that she has been working with physical therapy on debility for clicking. She does have a history of CHF and has a history of some other heart problems. She states her ankle is not very painful but just has some swelling around it. Her left ankle comparable is not very swollen. MD Complaint: extremity swelling Onset (ago): day(s) Pain Consistency: intermittent Location: right Severity scale (1-10): 3 Quality: aching Radiation: none Relieving factors: nothing Exacerbating factors: weight bearing Associated symptoms: denies other symptoms Related Data Home Medications Medication Instructions Recorded Confirmed vitamins A,C,Z-akby-qynuxp 4,296 1 cap PO BID 08/12/19 09/24/23 mcg-226 mg-90 mg capsule (ICaps AREDS) cholecalciferol (vitamin D3) 50 50 mcg PO DAILY 06/04/20 09/24/23 mcg (2,000 unit) capsule losartan 50 mg tablet 50 mg PO DAILY 07/23/23 09/24/23 vit C 250 mg-vit E 200 unit-zinc 1 cap PO BID 08/01/23 09/24/23 ox 12.5 ha-hbwdsv-oblvvb-zeax capsule (ICaps AREDS2) Allergies Allergy/AdvReac Type Severity Reaction Status Date / Time JOAQUINA Inhibitors Allergy Intermediate angioedema Verified 10/23/23 12:33 hydrochlorothiazide [Dyazide] Allergy Intermediate Hyponatremi Verified 10/23/23 12:33 a lisinopril Allergy Intermediate TONGUE Verified 10/23/23 12:33 SWELLING triamterene [Dyazide] Allergy Intermediate Hyponatremi Verified 10/23/23 12:33 a codeine [Tylenol-Codeine #3] AdvReac Intermediate Sleepiness Verified 10/23/23 12:33 tramadol AdvReac Intermediate nausea Verified 10/23/23 12:33 cephalexin AdvReac Mild rash Verified 10/23/23 12:33 Review of Systems Review of Systems: All systems reviewed & are unremarkable except as noted in HPI and below Constitutional: Constitutional: Reports no additional constitutional complaints Eyes: Eyes: Reports no additional eye complaints ENT: Reports system reviewed and no additional complaints, except as documented Cardiovascular: Cardiovascular: Reports no additional cardiovascular complaints Respiratory: Respiratory: Reports no additional respiratory complaints Gastrointestinal: Gastrointestinal: Reports no additional gastrointestinal complaints Genitourinary: Genitourinary: Reports no additional female genitourinary complaints Musculoskeletal: Musculoskeletal: Reports joint swelling (right ankle) Integumentary/Breasts: Skin/Breast: Reports system reviewed and no additional complaints, except as docu Neurologic: Reports system reviewed and no additional complaints, except as documented Psychiatric: Psychiatric: Reports no additional psychiatric complaints Endocrine: Endocrine: Reports no additional endocrine complaints Hematologic/Lymphatic: Hematologic/Lymphatic: Reports no additional hematologic/lymphatic complaints Allergic/Immunologic: Allergic/Immunologic: Reports no additional allergic/immunologic complaints PMFSH Past Medical History Medical History Alcohol use disorder Anemia, iron deficiency Atypical atrial flutter Chronic anticoagulation Chronic obstructive pulmonary disease H/O: stroke Hypertension associated with diabetes Hypertensive retinopathy of both eyes Junctional rhythm Macular degeneration Nicotine dependence Osteoarthritis Osteopenia Pseudophakia Symptomatic bradycardia Tobacco abuse Type 2 diabetes mellitus, without long-term current use of insulin Venous stasi
[2023-10-23 14:00] VITALS: BP 115/60; PULSE 64; RESP 17; O2SAT 99
[2023-10-23 14:30] VITALS: BP 117/60; PULSE 64; RESP 17; O2SAT 99
[2023-10-23 14:43] VITALS: BP 118/63; PULSE 65; RESP 17; TEMP 36.4; O2SAT 100
== END 2023-10-23 14:43 | disposition home or self-care (01) ==
PROVIDERS: Emergency Provider Family Medicine; PCP Family Medicine
DX: R60.0 Localized edema (principal); I11.0 Hypertensive heart disease with heart failure; I50.9 Heart failure, unspecified; E11.9 Type 2 diabetes mellitus without complications; F17.210 Nicotine dependence, cigarettes, uncomplicated; Z86.73 Personal history of transient ischemic attack (TIA), and cerebral infarction without residual deficits
CPT/HCPCS: 73610; 99283; A9270

== ENCOUNTER 2023-11-05 13:00 | Outpatient (RCR) | payer MEDICARE, SELFPAY ==
--- NOTE | 2023-08-13 11:11 | OPREHPOC ---
Outpatient Therapy Plan of Care This is a Multidisciplinary Plan of Care that may contain components documented by all disciplines (PT, OT, and ST.) PT Problem 1 PT Problem #1 Knowledge Deficit PT Goal 1 Goal Patient to demonstrate independence with HEP Target Visit 6 PT Problem 2 PT Problem #2 Impaired Strength PT Goal 1 Goal Patient to demonstrate 5/5 B LE strength to improve ability to complete house hold tasks and get up from chair at PLOF Target Visit 12 PT Problem 3 PT Problem #3 Impaired Functional Mobil PT Goal 1 Goal 1. Patient to complete 6 min walk test with only 1 seated rest break 2. Patient to complete 5TSTS in <15 seconds 3. Patient to complete TUG in <24 seconds to decrease fall risk Target Visit 12
--- NOTE | 2023-08-13 11:13 | PTOPEVAL1 ---
Assessment and note entered by Lorie Montoya DPT Evaluation Information Assessment Status Evaluation Diagnosis LE weakness, impaired balance Onset 08/10/23 Subjective Information Patient had a stroke in Aug. About 2 weeks ago she had a pacemaker placed. Patient reports she does not have any pain. She reports she has weakness and difficulty with balance. She is now walking with a quad cane but does have a walker at home too. She reports no steps or stairs at home. Patient reports she has difficulty with cooking and cleaning, poor balance and difficulty walking prolonged distances. Patient reports her is home with her all the time. Reported Pain Level Pain Score 0: Self Report Assessment PT Clinical Summary Mrs. Kaba is a 78 year old female who presents to PT with LE weakness and impaired balance. She demonstrates decreased B LE strength, impaired balance and impaired gait mechanics. She has difficulty with completing house hold tasks and ambulating at home and in the community. She would benefit from skilled PT to address impairments and return to PLOF. Plan of Care Interventions Gait Training,Hot Pack/Cold Pack,Manual Therapy, Neuro Re-education,Patient/Caregiver Educati, Therapeutic Activities,Therapeutic Exercise PT Services Indicated Yes Treatment Frequency and 2x weekly for 12 visits Duration These treatments will address the objective and functional deficits as defined above. The patient will be advanced safely and appropriately in order for the patient to progress towards his/her prior level of function. Additional exercises will be introduced and as well as a comprehensive home exercise program upon discharge, if needed, ?to ensure carryover of functional gains achieved in the clinic. This treatment plan has been reviewed and agreement upon by the patient.
--- NOTE | 2023-08-18 13:01 | BUSTOPEVAL1 ---
Assessment and note entered by Aliyah Lyles, CIVILIAN JAIL OFFICER Evaluation Information Assessment Status Evaluation Diagnosis CVA Z86.73, Aphasia R47.01 Subjective Information Patient was referred for an ST evaluation due to concerns with Aphasia post CVA. The patient reported that she has difficulty finding the words she wants to say and also has difficulty with her memory which impacts her ability to communicate wants/needs/ideas in various environments. ONSET: August 2022 Reported Pain Level Pain Score 0: Self Report Pain Score 0: Self Report Assessment ST Clinical Summary Patient was referred for an ST evaluation due to continued concerns with Aphasia post CVA one year ago. Patient's reported that the patient had some skilled home health ST treatment but it was infrequent. The patient continues to struggle with her memory, word finding skills and speech which is a change since her PLOF prior to the CVA. The SLUMS was administered and the patient received a score of 12/30. An informal language evaluation and cognitive evaluation was given during the assessment. The patient presented with difficulty following three step directions, moderate paragraph retention, functional reading comprehension skills, higher level confrontational naming, stating object function, divergent naming , thought organization (sequencing, categorization , functional math). The patient present with slurred speech and a wet/gurgle/hoarse vocal quality impacting the patient's overall speech intelligibility skills at the simple word and sentence level. Recommendation for skilled ST treatment to target aphasia post CVA to improve the patient's cognitive-communication skills to improve her ability to communicate with listener and attempt to return to PLOF with cognitive- communication abilities. Recommendation for ST 2x/ week for 10 sessions for the treatment of Aphasia R47.01. Plan of Care Interventions Treatment of Speech,Treatment of Language, Treatment for Cognitive F Treatment Frequency and 2x/week for 10 sessions Duration These treatments will address the objective and functional deficits as defined above. The patient will be advanced safely and appropriately in order for the patient to progress towards his/her prior level of function. Additional exercises will be introduced and as well as a comprehensive home exercise program upon discharge, if needed, ?to ensure carryover of functional gains a
--- NOTE | 2023-08-24 11:28 | BUOTOPEVAL ---
Assessment and note entered by Yee Mccartney OT Evaluation Information Assessment Status Evaluation Diagnosis Personal history of TIA and cerebral infarction Onset 2021 Subjective Information The patient reports that she does not know what she has a hard time doing at home. The patient's reported that he thinks she really needs strengthening in B UE and is not as coordinated as before. 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 Reported Pain Level Pain Score 0: Self Report Pain Score 0: Self Report Pain Score 0: Self Report Pain Score 0: Self Report Pain Score 0: Self Report Pain Score 0: Self Report Assessment OT Clinical Summary The patient is a 78 year old female who was referred to outpatient OT due to history of TIA within the past year. The patient has a pacemaker. The patient demonstrates significant deficits in UE strength, fine motor coordination, latex caster/pinch strength primarily in R UE that affects her ability to perform ADLs/IADLs safely at home. The patient previously demonstrated WFL UE strength, fine motor coordination and latex caster/pinch strength and performed all ADLs/IADLs independently. The patient requires skilled OT to address deficits and retun to PLOF. Plan of Care Interventions Therapeutic Exercise,Manual Therapy,Neuro Re- education,Therapeutic Activities,Hot Pack/Cold Pack,Cognitive Function,Sensory Integrative Techn, Self-Care/Home Management OT Services Indicated Yes Treatment Frequency and 3x/week for 10 visits. Duration These treatments will address the objective and functional deficits as defined above. The patient will be advanced safely and appropriately in order for the patient to progress towards his/her prior level of function. Additional exercises will be introduced and as well as a comprehensive home exercise program upon discharge, if needed, ?to ensure carryover of functional gains achieved in the clinic. This treatment plan has been reviewed and agreement upon by the patient.
--- NOTE | 2023-09-18 15:29 | OTOPPROG ---
Assessment and note entered by Yee Mccartney, OT Evaluation Information Assessment Status Progress Diagnosis Personal history of TIA and cerebral infarction Onset 2021 Subjective Information The patient reports that she does not do her UB exercises at home. She states that she cannot think of anything at home that she needs help to do. She stated that her normally does everything for her at home, there is only some things that she wishes she could do herself but cannot think of them during therapy session. Assessment OT Clinical Summary The patient demonstrates significant progress in UE strength and fine motor coordination leading to increased independence with ADLs of grooming and self feeding. The patient did not make progress in forest fire fighter/pinch strength due to not performing UE HEP. The therapist educated the patient on the importance to perform HEP and for increased improvements that the patient needs to use her hands in daily tasks and do fine motor coordination tasks at home. The patient requires continued skilled OT to address fine motor coordination and increase dexterity of R hand due to limited movement and carryover at home. Plan of Care Interventions Therapeutic Exercise,Manual Therapy,Neuro Re- education,Therapeutic Activities,Hot Pack/Cold Pack,Electrical Stimulation,Sensory Integrative Techn,Self-Care/Home Management,Prosthetic Training OT Services Indicated Yes Treatment Frequency and 2x/week for 4 weeks. Duration These treatments will address the objective and functional deficits as defined above. The patient will be advanced safely and appropriately in order for the patient to progress towards his/her prior level of function. Additional exercises will be introduced and as well as a comprehensive home exercise program upon discharge, if needed, ?to ensure carryover of functional gains achieved in the clinic. This treatment plan has been reviewed and agreement upon by the patient.
--- NOTE | 2023-09-25 07:33 | OPREHPOC ---
Outpatient Therapy Plan of Care This is a Multidisciplinary Plan of Care that may contain components documented by all disciplines (PT, OT, and ST.) PT Problem 1 PT Problem #1 Knowledge Deficit PT Goal 1 Goal Patient to demonstrate independence with HEP Target Visit 18 Progress Partially Met PT Problem 2 PT Problem #2 Impaired Strength PT Goal 1 Goal Patient to demonstrate 5/5 B LE strength to improve ability to complete house hold tasks and get up from chair at PLOF Target Visit 18 Progress Not Met PT Problem 3 PT Problem #3 Impaired Functional Mobil PT Goal 1 Goal 1. Patient to complete 6 min walk test with only 1 seated rest break 2. Patient to complete 5TSTS in <15 seconds 3. Patient to complete TUG in <24 seconds to decrease fall risk 4. tinett to display moderate fall risk or less Target Visit 18 Progress Not Met OT Problem 1 OT Problem #1 Knowledge Deficit OT Goal 1 Goal The patient will demonstrate 100% knowledge and return demonstration for UE HEP in order to improve UE strength for increased independence at home. Progress Partially Met OT Problem 2 OT Problem #2 Impaired Coordination OT Goal 1 Goal The patient will demonstrate increased fine motor coordination of R UE by performing 9-hole peg test in <32 seconds for increased dexterity during daily tasks. Target Visit 10 Progress Partially Met OT Problem 3 OT Problem #3 Impaired Strength OT Goal 1 Goal The patient will demonstrate 4+/5 muscle strength of B UE of B shouders, elbow and wrists with >26 lbs of hospital liaison strength in R hand in order to perform grooming tasks without dropping items. Target Visit [address] Problem 1 ST Problem #[address] Goal 1 Goal 1. Patient and family will participate in home programming to promote carryover/generalization of skills.
--- NOTE | 2023-09-25 07:33 | PTOPPROGNS ---
Assessment and note entered by JT File, PT Evaluation Information Assessment Status Progress Diagnosis LE weakness, impaired balance Onset 08/10/23 Subjective Information patient reports she continues to struggle with balance. she is getting PT, OT, and ST. she reports she continues to be fatigued with exercises in therapy, but thinks they are helping. Assessment PT Clinical Summary mrs. balderrama presents to skilled PT for her 10th skilled therapy visit today. she has made progress towards TUG and 5x sit to stand goals, but is still lacking in achievement of those and 6 minute walk test. she was also found to be a high fall risk per the tinetti today. she would benefit from continued skilled PT to address her remaining objective/functional deficits to achieve goals and return to her prior level functional activity performance/quality of life. Plan of Care Interventions Gait Training,Hot Pack/Cold Pack,Manual Therapy, Neuro Re-education,Patient/Caregiver Educati, Therapeutic Activities,Therapeutic Exercise PT Services Indicated Yes Treatment Frequency and continue skilled PT 2x weekly for 8 more visits Duration from today (18 total on POC) These treatments will address the objective and functional deficits as defined above. The patient will be advanced safely and appropriately in order for the patient to progress towards his/her prior level of function. Additional exercises will be introduced and as well as a comprehensive home exercise program upon discharge, if needed, ?to ensure carryover of functional gains achieved in the clinic. This treatment plan has been reviewed and agreement upon by the patient.
[2023-09-28 14:00] VITALS: O2SAT 60
--- NOTE | 2023-10-05 16:00 | PCSTNOTE ---
Patient called & cancelled scheduled appointment this date due to inclement weather.
[2023-10-08 13:00] VITALS: O2SAT 65
--- NOTE | 2023-10-08 14:06 | STOPPROG ---
Assessment and note entered by Aliyah Lyles, JUDGE Evaluation Information Assessment Status Progress Diagnosis CVA Z86.73, Aphasia R47.01 Onset August 2022 Subjective Information Patient was referred for an ST evaluation due to concerns with Aphasia post CVA. The patient reported that she has difficulty finding the words she wants to say and also has difficulty with her memory which impacts her ability to communicate wants/needs/ideas in various environments. The patient has completed a total of [address] sessions targeting aphasia treatment. Patient reported that she has noticed improvements in her memory, finding the words she wants to say and her speech being more clear. Assessment ST Clinical Summary Patient was referred for an ST evaluation due to continued concerns with Aphasia post CVA a little over one year ago. Patient's reported that the patient had some skilled home health ST treatment but it was infrequent. The patient continues to struggle with her memory, word finding skills and speech which is a change since her PLOF prior to the CVA. The patient has completed a total of [address] treatment sessions for the treatment of Aphasia. The patient reported that she has noticed improvements in her speech skills, memory and verbal expression skills. The SLUMS was re-administered and the patient received a score of 17/30 (improvement from 08/18/23 with a score of 12/30). The patient has shown improvements in short term memory skills , speech intelligibility at the sentence level, functional reading skills, organizational skills ( sequencing, categorizing), and verbal expression. However, the patient continues to demonstrate difficulty in all areas, due to goals not being met yet, therefore skilled ST 2x/week for 10 sessions is recommended. Recommendation for skilled ST treatment to target aphasia post CVA to improve the patient's cognitive-communication skills to improve her ability to communicate with listener and attempt to return to PLOF with cognitive-communication abilities. Recommendation for ST 2x/week for 10 sessions for the treatment of Aphasia R47.01. Plan of Care Interventions Treatment of Speech,Treatment of Language, Treatment for Cognitive F ST Services Indicated Yes
--- NOTE | 2023-10-12 14:19 | PCSTNOTE ---
Patient called & cancelled scheduled appointment this date due to having an eye procedure and being very dizzy.
--- NOTE | 2023-10-13 16:24 | PCPTNOTE ---
patient had an injection in her eye
--- NOTE | 2023-10-20 15:16 | OPREHPOC ---
Outpatient Therapy Plan of Care This is a Multidisciplinary Plan of Care that may contain components documented by all disciplines (PT, OT, and ST.) PT Problem 1 PT Problem #1 Knowledge Deficit PT Goal 1 Goal Patient to demonstrate independence with HEP Target Visit 18 Progress Met PT Problem 2 PT Problem #2 Impaired Strength PT Goal 1 Goal Patient to demonstrate 5/5 B LE strength to improve ability to complete house hold tasks and get up from chair at PLOF Target Visit 18 Progress Not Met PT Problem 3 PT Problem #3 Impaired Functional Mobil PT Goal 1 Goal 1. Patient to complete 6 min walk test with only 1 seated rest break 2. Patient to complete 5TSTS in <15 seconds 3. Patient to complete TUG in <24 seconds to decrease fall risk 4. tinetti to display moderate fall risk or less Target Visit 18 Progress Not Met OT Problem 1 OT Problem #1 Knowledge Deficit OT Goal 1 Goal The patient will demonstrate 100% knowledge and return demonstration for UE HEP in order to improve UE strength for increased independence at home. Progress Partially Met OT Problem 2 OT Problem #2 Impaired Coordination OT Goal 1 Goal The patient will demonstrate increased fine motor coordination of R UE by performing 9-hole peg test in <32 seconds for increased dexterity during daily tasks. 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 Target Visit [address] Problem 1 ST Problem #[address] Goal 1 Goal 1. Patient and family will participate in home programming to promote carryover/generalization of skills.
--- NOTE | 2023-10-20 15:17 | PTOPDC ---
Assessment and note entered by Lorie Montoya DPT Evaluation Information Assessment Status Re-evaluation Diagnosis LE weakness, impaired balance Onset 08/10/23 Subjective Information patient reports her balance has improved as well as her walking distance. She reports she is using the cane at home. she is getting a lot of help from her at home. she reports she does her HEP but is not always doing it everyday. Reported Pain Level Pain Score 0: Self Report Pain Score 0: Self Report Assessment PT Clinical Summary Mrs. Kaba has been seen for 18 visits of skilled PT. She has made minimal objective improvements since last re-evaluation on 10/07/23. She does report that since starting PT she feels she can walk further and has improved balance. She continues to be a high fall risk at this time. She was educated on continued HEP to maintain progress made in skilled PT. She will be discharged from skilled PT at this time. Plan of Care PT Services Indicated No
--- NOTE | 2023-10-30 13:46 | PCOTNOTE ---
The patient cancelled appointment this date due to weather conditions.
[2023-11-02 14:00] VITALS: O2SAT 63
--- NOTE | 2023-11-02 15:44 | OTOPDC ---
Assessment and note entered by Yee Mccartney, OT Evaluation Information Assessment Status Discharge Diagnosis Personal history of TIA and cerebral infarction Subjective Information The patient reports that she feels about the same as the start of therapy. She stated that she does not do many exercises at home. The patient stated that she will try to do her exercises at home after being discharged from OT. Reported Pain Level Pain Score 0: Self Report Pain Score 0: Self Report Assessment OT Clinical Summary The patient demonstrates minimal progress with excellence coach strength, UE strength, HEP carryover and fine motor coordination due to limited completion of exercises at home and patient's cognitive deficits . The patient has been educated to continue with UE HEP and endurance training at home in order to improve overall functioning and maintain safety while at home with decreased risk of decline and falls. The patient is discharged this date due to no longer requiring skilled OT, to perform HEP to maintain strength. Plan of Care OT Services Indicated No
--- NOTE | 2023-11-16 11:36 | PCSTNOTE ---
This treatment is being continued on visit number [id number]. Please see documentation on both accounts to view progress. Completed interventions, outcomes, and problems have been marked as Inactive to facilitate the copying of the Care plan routine for recurring accounts.
== END 2023-11-11 13:01 | disposition still patient (30) ==
LOC: CHSST 13:00
PROVIDERS: PCP Family Medicine; Visit Provider Nurse Practitioner Family
DX: Z95.0 Presence of cardiac pacemaker (principal); R13.0 Aphagia; R29.898 Other symptoms and signs involving the musculoskeletal system; Z86.73 Personal history of transient ischemic attack (TIA), and cerebral infarction without residual deficits
CPT/HCPCS: 92507; 92523; 96125; 97110; 97112; 97116; 97161; 97165; 97530; 97750

== ENCOUNTER 2023-11-27 09:34 | Outpatient (CLI) | payer MEDICARE, SELFPAY ==
[2023-11-27 10:21] LABS: LDL Cholesterol Direct 47 mg/dL (0-130)
[2023-11-27 10:22] LABS: Hemoglobin A1C 5.9 % (<5.7)
== END 2023-11-27 09:35 | disposition home or self-care (01) ==
PROVIDERS: PCP Nurse Practitioner Family; Visit Provider Student in an Organized Health Care Education/Training Program
DX: H35.033 Hypertensive retinopathy, bilateral (principal); E11.319 Type 2 diabetes mellitus with unspecified diabetic retinopathy without macular edema
CPT/HCPCS: 36415; 83036; 83721

== ENCOUNTER 2023-12-14 10:23 | Outpatient (CLI) | payer MEDICARE, SELFPAY ==
--- NOTE | 2023-12-14 10:29 | ECHO_ITS ---
Patient Info Name: Kelly Kaba Age: 78 years : 1945 Gender: Female Ht: 60 in Wt: 110 lbs BSA: 1.46 m2 HR: 75 bpm BP: 155 / 85 mmHg Heart Rhythm: Sinus Rhythm Technical Quality: Good Exam Date: 12/14/2023 10:26 AM Exam Location: Echo Lab Patient Status: Outpatient Admit Date: 12/14/2023 Staff Ordering Physician: Angélica Horton NP Surveying Teacher: Hugo Winter RDCS Attending Provider: Angélica Horton NP Referring Physician: Sol NUNEZ; Exam Type: CA echo doppler color flow Study Info Indications - edema, unspecify Complete two-dimensional, color flow and Doppler transthoracic echocardiogram is performed. History/Risk Factors Hypertension: Yes Congenital Heart Disease (CHD): No Diabetic Therapy: Oral Myocardial Infarction (MD): No Chronic Lung Disease: No Obesity: Yes Renal Disease: No Coronary Artery Disease (CAD) No Congestive Heart Failure (CHF): No Cardiomyopathy/LV Systolic Dysfunction: No Date of Last Tobacco Use: 06/04/2020 Diabetes Mellitus: Type II COPD: On Meds Tobacco Use: Current - Every Day If Any Current, Tobacco Type: Cigarettes If Current - Every Day \T\ Cigarettes, Amount: Heavy Tobacco Use (>=10/day) Cerebrovascular Disease: No DVT Treatment: Apixaban Deep Vein Thrombosis (DVT): None Dialysis: None Cardiac Arrest: No Summary 1. Complete two-dimensional, color flow and Doppler transthoracic echocardiogram is performed. 2. Left ventricular chamber dimension is normal. 3. Left ventricular systolic function is normal, estimated at 60-65%. 4. The left ventricular diastolic function is grade III diastolic dysfunction. 5. E/e' 27 is significantly elevated. 6. Left atrial chamber dimension is mildly enlarged. 7. There is mild aortic valve sclerosis. 8. There is mild mitral valve regurgitation. 9. There is mild tricuspid valve regurgitation. 10. No pulmonary hypertension, estimated pulmonary arterial systolic pressure is 39 mmHg. Recommendations * Continue medical therapy for diabetes. * Smoking cessation counseling is recommended for this patient. Left Ventricle E/e' 27 is significantly elevated. Left ventricular chamber dimension is normal. Left ventricular systolic function is normal, estimated at 60-65%. The left ventricular diastolic function is grade III diastolic dysfunction. Right Ventricle Right ventricular systolic function is normal and with normal TAPSE 2.9 cm. Right ventricular chamber dimension is normal. Left Atria Left atrial chamber dimension is mildly enlarged. Right Atria Right atrial chamber dimension is normal. Aortic Valve The aortic valve is trileaflet. There is mild aortic valve sclerosis. There is no aortic valve stenosis. There is no aortic valve regurgitation. Pulmonic Valve There is no pulmonic regurgitation. Mitral Valve There is no mitral valve stenosis. There is mild mitral valve regurgitation. Tricuspid Valve There is mild tricuspid valve regurgitation. No pulmonary hypertension, estimated pulmonary arterial systolic pressure is 39 mmHg. Pericardium/Pleural There is no pericardial effusion. Inferior Vena Cava Normal inferior vena cava with >50% collapse upon inspiration consistent with normal right atrial pressure, 5 mmHg. Aorta The aortic root size at the sinus of Valsalva is normal. Left Ventricular Outflow Tract Name Value Normal
== END 2023-12-14 10:24 | disposition home or self-care (01) ==
LOC: CHSIMG 10:24
PROVIDERS: PCP Nurse Practitioner Family; Visit Provider Nurse Practitioner Family
DX: R06.02 Shortness of breath (principal); R60.9 Edema, unspecified; I08.3 Combined rheumatic disorders of mitral, aortic and tricuspid valves
CPT/HCPCS: 93306

== ENCOUNTER 2024-02-04 14:00 | Outpatient (RCR) | payer MEDICARE, SELFPAY ==
[2023-11-12 00:01] VITALS: O2SAT 63
--- NOTE | 2023-11-16 11:39 | PCSTNOTE ---
The treatment documented on this account is a continuation of the treatment documented on visit number [id number]. Please see documentation on both accounts to view progress. The Plan of Care has been transitioned and updated within the new V#. I have addressed and agree with the discipline specific Problems, Interventions, and Goals for the current certification period. Completed interventions, outcomes, and problems have been marked as Inactive to facilitate the copying of the Care plan routine for recurring accounts.
--- NOTE | 2023-11-16 12:19 | PCSTNOTE ---
Patient was not seen the week of November 09 due to CUSTOMER TECHNICAL SERVICES MANAGER being out of the office. Patient did not wish to reschedule with alternate CUSTOMER TECHNICAL SERVICES MANAGER.
--- NOTE | 2023-11-24 12:44 | STOPPROG ---
Assessment and note entered by Aliyah Lyles, PACKAGING SALES CONSULTANT Evaluation Information Assessment Status Progress Diagnosis CVA Z86.73, Aphasia R47.01 Onset August 2022 Subjective Information Patient was referred for an ST evaluation due to concerns with Aphasia post CVA. The patient reported that she has difficulty finding the words she wants to say and also has difficulty with her memory which impacts her ability to communicate wants/needs/ideas in various environments. The patient has completed a total of [address] sessions targeting aphasia treatment since the previous progress report that was written. Patient reported that she has noticed improvements in her memory, finding the words she wants to say and her speech being more clear. The patient's has also noticed recent improvements in the patient's overall cognitive-communication skills. Assessment ST Clinical Summary Patient was referred for an ST evaluation due to continued concerns with Aphasia post CVA a little over one year ago. Patient's reported that the patient had some skilled home health ST treatment but it was infrequent. The patient continues to struggle with her memory, word finding skills and speech which is a change since her PLOF prior to the CVA. The patient has completed a total of [address] treatment sessions for the treatment of Aphasia since the previous progress report. The patient's has reported that he has noticed improvements in the patient's speech skills, memory and verbal expression skills. The SLUMS was re-administered and the patient received a score of 17/30 (same score as previous time given on 10/08/23). The MMSE was given during the assessment and the patient scored a 22/30 indicating a mild cognitive impairment. The patient has shown improvements in short term memory skills, speech intelligibility at the complex word , phrase and sentence level, functional reading skills, organizational skills ( sequencing, categorizing), and verbal expression. However, the patient continues to demonstrate difficulty in all areas, due to goals not being met yet, therefore skilled ST 1x/week for 10 sessions is recommended. Recommendation for skilled ST treatment to target aphasia post CVA to improve the patient's cognitive-communication skills to improve her ability to communicate wi
[2023-12-24 13:00] VITALS: O2SAT 85
[2024-02-04 14:00] VITALS: O2SAT 80
--- NOTE | 2024-02-04 16:37 | BUSTOPDC ---
Assessment and note entered by Aliyah Lyles, POST CLOSER Evaluation Information Assessment Status Discharge Diagnosis CVA Z86.73, Aphasia R47.01 Subjective Information Patient was referred for an ST evaluation due to concerns with Aphasia post CVA. The patient reported that she has difficulty finding the words she wants to say and also has difficulty with her memory which impacts her ability to communicate wants/needs/ideas in various environments. The patient has completed a total of [address] sessions targeting aphasia treatment since the previous progress report that was written on . Patient reported that she has noticed improvements in her memory, finding the words she wants to say and her speech being more clear. The patient's has also noticed recent improvements in the patient's overall cognitive- communication skills and is happy with where patient is at currently and is ready for discharge at this time. Reported Pain Level Pain Score 0: Self Report Pain Score 0: Self Report Pain Score 0: Self Report Pain Score 0: Self Report Pain Score 0: Self Report Pain Score 0: Self Report Pain Score 0: Self Report Pain Score 0: Self Report Pain Score 0: Self Report Pain Score 0: Self Report Pain Score 0: Self Report Pain Score 0: Self Report Pain Score 0: Self Report Pain Score 0: Self Report Additional Pain Score Comments Pt. denies having any pain. Assessment ST Clinical Summary Patient was referred for an ST evaluation due to continued concerns with Aphasia post CVA. Patient' s reported that the patient had some skilled home health ST treatment but it was infrequent. The patient continues to struggle with her memory, word finding skills and speech which is a change since her PLOF prior to the CVA. The patient has completed a total of [address] treatment sessions for the treatment of Aphasia since the previous progress report on 11-24-23. The patient's has reported that he has noticed improvements in the patient's speech skills, memory and
== END 2024-02-04 20:00 | disposition home or self-care (01) ==
LOC: CHSST 14:00
PROVIDERS: PCP Family Medicine; Visit Provider Nurse Practitioner Family
DX: Z95.0 Presence of cardiac pacemaker (principal); R13.0 Aphagia; R29.898 Other symptoms and signs involving the musculoskeletal system; Z86.73 Personal history of transient ischemic attack (TIA), and cerebral infarction without residual deficits
CPT/HCPCS: 92507

== ENCOUNTER 2024-06-13 08:32 | Emergency (ER) | payer MEDICARE, SELFPAY ==
[2024-06-13] VITALS (13 sets, daily range): BP systolic 93–113; BP diastolic 50–64; PULSE 60–76; RESP 18–22; TEMP 36.4; O2SAT 98–100
--- NOTE | ~2024-06-13 | CT_ITS ---
CT brain wo con Ordering provider: Paul Lugo DO History: 78 years Female with . AMS, CVA,CONFUSION,INC FATIGUE . Comparison: January 05, 2023 Technique: CT of the head without contrast. Radiation reduction technique utilized.The dose-length product was 605.33 mGy-cm. FINDINGS: BRAIN PARENCHYMA AND CSF SPACES: Hyperdense area seen in the right frontal lobe which is unchanged fr om previous examination suggestive of calcification. Mild leukoaraiosis and diffuse cortical atrophy. Mild atheromatous disease. No midline shift, mass effect or hemorrhage. The brain parenchyma and CS F spaces are otherwise normal. VISUALIZED PARANASAL SINUSES: Well aerated. MASTOIDS: Well aerated. BONES: The bones appear intact. SOFT TISSUES: Visualized nasopharynx is normal. Superficial soft tissues are normal. IMPRESSION: No acute intracranial findings. Reviewed, dictated and finalized at location A.
--- NOTE | 2024-06-13 08:42 | ED.GENADULT ---
HPI - General Adult General Chief complaint: Weakness Stated complaint: fatigue Time Seen by Provider: 06/13/24 08:34 History of Present Illness HPI narrative: Kelly is a 78F with a PMH of DMII, nicotine dependence, Afib, macular degeneration, CHF w/ pacemaker, etoh use disorder, COPD, osteopenia and a history of a CVA that presented to the ED with her with fatigue. She is very tired despite adequate sleep and just feels tired all the time. She denies CP, dyspnea or pain anywhere. She is eating and denies vomiting and diarrhea. She has had worsening facial droop and slurred speech for over a week as well. She has this at baseline from a CVA over a year ago. Related Data Allergies Allergy/AdvReac Type Severity Reaction Status Date / Time JOAQUINA Inhibitors Allergy Intermediate angioedema Verified 06/13/24 08:44 hydrochlorothiazide [Dyazide] Allergy Intermediate Hyponatremi Verified 06/13/24 08:44 a lisinopril Allergy Intermediate TONGUE Verified 06/13/24 08:44 SWELLING triamterene [Dyazide] Allergy Intermediate Hyponatremi Verified 06/13/24 08:44 a codeine [Tylenol-Codeine #3] AdvReac Intermediate Sleepiness Verified 06/13/24 08:44 tramadol AdvReac Intermediate nausea Verified 06/13/24 08:44 cephalexin AdvReac Mild rash Verified 06/13/24 08:44 Review of Systems Review of Systems: All systems reviewed & are unremarkable except as noted in HPI and below PMFSH Past Medical History Medical History Alcohol use disorder Anemia, iron deficiency Atypical atrial flutter Chronic anticoagulation Chronic obstructive pulmonary disease H/O: stroke Hypertension associated with diabetes Hypertensive retinopathy of both eyes Junctional rhythm Macular degeneration Nicotine dependence Osteoarthritis Osteopenia Pseudophakia Symptomatic bradycardia Tobacco abuse Type 2 diabetes mellitus, without long-term current use of insulin Venous stasis ulcer Vitamin D deficiency Surgical History Surgical History History of appendectomy History of cataract removal with insertion of prosthetic lens Right eye only History of cholecystectomy History of right knee joint replacement (2014) Family History Family History Father Hypertension Mother Hypertension Ovarian cancer Other Arthritis Diabetes mellitus Social History Social History Social History: Surrogate medical decision maker: Tomas Kaba, spouse. Code status: Full code. Smoking packs per day: 1 Smoking cigarettes per day: 20.0 Years smoked: 63 Smoking pack-years: 63.00 Smoking status: Current every day smoker Tobacco type: cigarettes Second hand tobacco smoke exposure: Yes Alcohol intake: current Alcohol use details: No alcohol in 2 weeks as of 07/27/2023. Substance use: never Substance use type: does not use Do You Feel Safe in your Home?: Yes Lack of Transportation: No Lack of Food: Never True Current Housing: I Have Housing Concerned About Future Housing: No Difficulty Paying Gas/Electric Bills: No Difficulty Paying for Meds: No Currently Unemployed: No Education: High School Diploma/GED Difficulty w/ Childcare or Family Care: No Living arrangements: with family Occupation/Education: retired Spiritual care concerns: No Exam Const: General: cooperative, comfortable, no acute distress, well developed, alert and awake Orientation/consciousness: oriented to person, oriented to place and oriented to time HENMT: Head: normal to inspection, normocephalic and atraumatic Ears: hearing grossly normal bilaterally and external ears normal Face/Nose/Sinus: Normal external nose present Eyes: General: appearance normal, both eyes and all related structures Periorbital: periorbital findings nor
--- NOTE | 2024-06-13 08:45 | ECG_ITS ---
Test Date: 2024-06-13 08:56:26 Measurements Intervals [place] Rate: 56 P: 0 VA: 0 QRS: 262 QRSD: 158 T: 82 QT: 466 QTc: 452 Interpretive Statements ATRIAL TACHYCARDIA WITH SLOW VENTRICULAR RESPONSE RIGHT AXIS DEVIATION RIGHT BUNDLE BRANCH BLOCK BASELINE ARTIFACT- II, III, AVR, AVL, AVF ABNORMAL ECG No previous ECG available for comparison Electronically Signed On 06-13-2024 09:56:56 CDT by Eriberto Barone D.O.
[2024-06-13 09:00] LABS: Basophils Absolute Auto 0.05 K/mm3 (0.00-0.10); Basophils Percent Auto 0.5 % (0.0-1.0); Eosinophils Absolute Auto 0.09 K/mm3 (0.02-0.50); Eosinophils Percent Auto 0.9 % (1.0-6.0); Hematocrit 29.6 % (35.0-42.0); Hemoglobin 9.3 g/dL (11.7-13.8); Immature Granulocyte Absolute 0.03 K/mm3 (0.00-0.00); Immature Granulocyte Percent A 0.3 % (0.0-0.0); Lymphocytes Absolute Auto 1.89 K/mm3 (1.10-4.50); Lymphocytes Percent Auto 19.8 % (18.0-42.0); Mean Corpuscular HGB Conc 31.4 g/dL (32-36); Mean Corpuscular Hemoglobin 29.2 pg (27.0-31.0); Mean Corpuscular Volume 92.8 fL (78.0-102.0); Mean Platelet Volume 8.8 fl (9.2-11.8); Monocytes Absolute Auto 0.82 K/mm3 (0.10-0.90); Monocytes Percent Auto 8.6 % (2.0-11.0); Neutrophils Absolute Auto 6.68 K/mm3 (1.70-7.20); Neutrophils Percent Auto 69.9 % (50.0-70.0); Platelet Count Result 283 K/mm3 (150-420); Red Blood Count 3.19 M/mm3 (4.20-5.40); Red Cell Distribution Width 15.6 % (11.6-14.4); White Blood Count 9.6 K/mm3 (4.8-10.8)
[2024-06-13 09:28] LABS: CRP 1.8 mg/dL (0.0-0.9); Magnesium 2.1 mg/dL (1.8-2.4); Troponin I 9.3 ng/L (0.00-60.4)
--- NOTE | 2024-06-13 09:34 | PC.NURSE ---
pt has returned from ct, at bedside. nad noted. pt denies any needs or complaints. pt is awaiting results. will continue to monitor.
[2024-06-13 09:35] LABS: SARS-CoV-2 RNA PCR Negative (Negative)
[2024-06-13 09:40] LABS: Influenza A QL RT-PCR Negative (Negative); Influenza B QL RT-PCR Negative (Negative); RSV RNA, RT-PCR Negative (Negative)
[2024-06-13 09:41] LABS: Thyroid Stimulating Hormone 0.98 uIU/mL (0.36-3.74)
[2024-06-13 09:44] LABS: Alanine Aminotransferase 23 U/L (14-59); Albumin Level 2.9 g/dL (3.4-5.0); Alkaline Phosphatase 119 U/L (46-116); Ammonia 17 umol/L (11-32); Anion Gap 6 mmol/L (4-12); Aspartate Amino Transferase 24 U/L (15-37); Bilirubin,Total 0.5 mg/dL (0.00-1.00); Blood Urea Nitrogen 23 mg/dL (7-18); Calcium 9.2 mg/dL (8.5-10.1); Carbon Dioxide 32 mmol/L (21-32); Chloride 103 mmol/L (98-108); Estimated CRCL calculation 31 ml/min; Estimated Glomerular Filt Rate 56; Glucose 124 mg/dL (70-99); Osmolality Calculated 296 mOsm/kg (285-295); Potassium 4.1 mmol/L (3.5-5.1); Sodium 141 mmol/L (136-145); Total Protein 6.8 g/dL (6.4-8.2)
--- NOTE | 2024-06-13 10:28 | PC.NURSE ---
straight cath completed, pt tolerated well. another warm blanket provided, remains at bedside, pt denies any other needs or complaints. will continue to monitor.
[2024-06-13 10:29] LABS: Add Urine Microscopic? YES; Appearance Urine Clear (Clear); Bilirubin Urine Negative (Negative); Blood Urine Negative (Negative); Color Urine Light Yellow (Yellow); Glucose Urine UA Negative (Negative); Ketones Urine Trace (Negative); Leukocyte Esterase Ur 2+ LEU/UL (Negative); Nitrate Urine Negative (Negative); Protein Urine Negative (Negative)
[2024-06-13 10:34] LABS: Bacteria Urine 1+ /hpf; RBC Urine None seen /hpf (0-2); Squamous Epithelial Cell Urine Many /hpf (Few)
[2024-06-13 10:35] LABS: Amphetamine Screen Urine Negative (Negative); Barbiturate Screen Urine Negative (Negative); Benzodiazepines Screen Urine Negative (Negative); Cannabinoid Screen Urine Negative (Negative); Cocaine Screen Urine Negative (Negative); Methadone Screen Urine Negative (Negative); Opiate Screen Urine Negative (Negative); Phencyclidine Screen Urine Negative (Negative)
[2024-06-13 11:01] LABS: Lactic Acid Reflex 1.8 mmol/L (0.4-2.0)
--- NOTE | 2024-06-13 11:28 | PC.NURSE ---
ERP WENT OVER DC INSTRUCTIONS WITH PT AND . HE VERBALIZED UNDERSTANDING. PT DENIES ANY COMPLAINTS OR NEEDS.
--- NOTE | 2024-06-15 12:19 | PC.NURSE ---
urine culture reviewed, no growth noted.
== END 2024-06-13 11:30 | disposition home or self-care (01) ==
PROVIDERS: Emergency Provider Family Medicine; PCP Nurse Practitioner Family
DX: R53.83 Other fatigue (principal); I48.91 Unspecified atrial fibrillation; E11.9 Type 2 diabetes mellitus without complications; I11.0 Hypertensive heart disease with heart failure; I50.9 Heart failure, unspecified; J44.9 Chronic obstructive pulmonary disease, unspecified; F17.210 Nicotine dependence, cigarettes, uncomplicated; Z20.822 Contact with and (suspected) exposure to COVID-19; Z86.73 Personal history of transient ischemic attack (TIA), and cerebral infarction without residual deficits; Z79.899 Other long term (current) drug therapy
CPT/HCPCS: 36415; 70450; 80053; 80307; 81001; 82140; 83605; 83735; 84443; 84484; 85025; 86140; 87086; 87637; 93005; 99284

== ENCOUNTER 2024-08-23 11:30 | Outpatient (RCR) | payer MEDICARE, SELFPAY ==
--- NOTE | 2024-06-28 11:59 | PTOPEVAL1 ---
Assessment and note entered by Lorie Hagan DPT Evaluation Information Assessment Status Evaluation Diagnosis weakness ICD-10 Condition Codes (PT) Weakness R53.1 Subjective Information Patient reports her MD sent her here for weakness. She has a prior history of a stroke and has used a quad cane since. She denies falls. She reports no steps or stairs at home. She reports walking long distances is difficult. She reports her balance is okay . She reports her does the cooking and cleaning. She denies pain Reported Pain Level Pain Score 0: Self Report Assessment PT Clinical Summary Mrs. Kaba is a 78 year old female who presents to PT with weakness. She demonstrates B LE weakness, impaired gait mechanics and impaired balance limiting her ability to ambulate house hold and community distances and complete house hold tasks. She would benefit from skilled PT to address impairments and return to PLOF. Plan of Care Interventions Gait Training,Hot Pack/Cold Pack,Manual Therapy, Neuro Re-education,Patient/Caregiver Educati, Therapeutic Activities,Therapeutic Exercise PT Services Indicated Yes Treatment Frequency and 2x weekly for 10 visits Duration These treatments will address the objective and functional deficits as defined above. The patient will be advanced safely and appropriately in order for the patient to progress towards his/her prior level of function. Additional exercises will be introduced and as well as a comprehensive home exercise program upon discharge, if needed, ?to ensure carryover of functional gains achieved in the clinic. This treatment plan has been reviewed and agreement upon by the patient.
--- NOTE | 2024-07-19 13:35 | BUSTOPEVAL1 ---
Assessment and note entered by Aliyah Lyles, MEDICAL AND HEALTH SERVICES MANAGER Evaluation Information Assessment Status Evaluation Diagnosis CVA I63.9 (2021), Aphasia R47.01, weakness R53.1 ICD-10 Condition Codes (ST) I69.81,I69.82,I69.820 Subjective Information Patient was referred for a skilled ST evaluation due to a recent ER visit with suspected mini stroke on 06-13-24. This impacted the patient's overall speech skills with an increase in difficulty in word finding and production of speech. The patient reported that she has not noticed a significant decrease in skills but her has noticed. Throughout the evaluation the patient demonstrated difficulty with short term memory skills for recent events, difficulty with orientation recall, word retrieval difficulties and decrease speech intelligibility through slurred and slow speech rate due to dysarthria. The Mini-Mental State Examination was administered during the evaluation with a score of 18/30 indicating mild-moderate cognitive impairment ( range for mild cognitive impairment is a score between 18-23). Reported Pain Level Pain Score 0: Self Report Pain Score 0: Self Report Pain Score 0: Self Report Pain Score 0: Self Report Pain Score 0: Self Report Pain Score 0: Self Report Pain Score 0: Self Report Assessment ST Clinical Summary Patient was referred for a skilled ST evaluation due to a recent mini stroke episode on 06-13-24 resulting in increased difficulty with speech and weakness. Patient's reported that he has noticed a change in the patient's overall speech intelligibility skills with increased slurred speech and frequent repetition due to difficulty understanding what the patient is saying. Throughout the assessment the patient presented with dysarthria symptoms through slow, slurred speech with wet/gurgle vocal quality noted. The patient required and increase in time for formulate responses when asked various questions. The Mini-Mental State Examination was administered during the evaluation with a score of 18/30 indicating mild-moderate cognitive impairment ( range for mild cognitive impairment is a score between 18-23). Speech and language skills were evaluated with difficulties noted in moderate/ complex paragraph retention, reading comprehension at the paragraph level, verbal expression skills at the complex word level, sentence level, complex confrontational naming, divergent naming and picture description at the sentence level due to decreased speech intelligibility skills. Recommendation for skilled ST treatment to target speech-language deficits to improve the patient's ability to return to prior level of function with communication skills. Recommendation for skilled ST treatment 1x/week for 10 visits. Plan of Care Interventions Treatment of Speech,Treatment of Language, Treatment for Cognitive F Treatment Frequency and 1x/week for 10 visits Duration These treatments will address the objective and functional deficits as defined above. The patient will be advanced safely and appropriately in order for the patient to progress towards his/her prior level of function. Additional exercises will be introduced and as well as a comprehensive home exercise program upon discharge, if needed, ?to ensure carryover of functional gains achieved in the clinic. This treatment plan has been reviewed and agreement upon by the patient.
--- NOTE | 2024-07-28 13:59 | OPREHPOC ---
Outpatient Therapy Plan of Care This is a Multidisciplinary Plan of Care that may contain components documented by all disciplines (PT, OT, and ST.) PT Problem 1 PT Problem #1 Knowledge Deficit PT Goal 1 Goal / Goal Update patient to demonstrate independence with HEP Target Visit 18 Progress Not Met PT Goal 2 Goal / Goal Update continue PT Problem 2 PT Problem #2 Impaired Strength PT Goal 1 Goal / Goal Update Patient to demonstrate 4+/5 B LE strength to improve ability to ambulate prolonged distance Progress Not Met PT Goal 2 Goal / Goal Update continue Target Visit 18 PT Problem 3 PT Problem #3 Impaired Functional Mobil PT Goal 1 Goal / Goal Update 1. Patient to improve Tinetti Balance score by 5 points to decrease fall risk within the home 2. Patient to demonstrate TUG in <15 seconds to decrease fall risk within the home 3. Patient to ambulate 300' with no instance of R toe drag to decrease fall risk Progress Not Met PT Goal 2 Goal / Goal Update continue Target Visit [address] Problem #[address] Goal 1 Goal / Goal Update 1. Patient will participate in home programming to facilitate improve carryover of skills to home environment. Target Visit [address] Problem #[address] Goal 1 Goal / Goal Update 1. Patient will demonstrate improved orientation skills (temporal) with 90% accuracy and minimal cues. 2. Patient will complete recent memory and working memory tasks through paragraph recall, picture recall, paired words with 90% accuracy and minimal cues. 3. Patient will perform thought organizational tasks (sequencing, categorization tasks) with 90% accuracy and minimal cues. ST Problem 3 ST Problem #[address] Goal 1 Goal / Goal Update 1. Patient will complete word retrieval tasks through word finding activities (opposites, object function, synonyms) with 90% accuracy and minimal cues. 2. Patient will complete convergent/divergent naming tasks with 90% accuracy (naming 12+ items) with minimal cues. Target Visit [address] Problem #[address] Goal 1 Goal / Goal Update 1. Patient will imitate trisyllabic words with 90% accuracy and minimal cues to improve speech intelligibility skills. 2. Patient will imitate sentences at the 7+ word level with 90% accuracy and minimal cues to improve overall speech intelligibility skills through use of SLOP. Target Visit 10
--- NOTE | 2024-07-28 13:59 | PTOPPROG ---
Assessment and note entered by Jennyfer Herrmann, PT Evaluation Information Assessment Status Progress Diagnosis weakness ICD-10 Condition Codes (PT) Weakness R53.1 Other ICD-10 Condition Codes ( I63.9 PT) Onset 06/20/24 Subjective Information Kelly Kaba reports she has not had any falls since she has been participating in PT. Her reports she is able to walk down their hallway without her cane but otherwise she needs to use the cane. He reports she is not doing her exercises at home and he feels she could benefit from more PT. Assessment PT Clinical Summary Kelly Kaba has completed 9 skilled PT visits for weakness following a CVA sustained in 2022. She and her is reporting no falls but she is still weak. She objectively demonstrates decreased dynamic balance, decreased right LE strength, shuffling gait, and decreased endurance. She is making progress toward her goals but has not met them. She will benefit from continued skilled PT to further address ongoing deficits. Plan of Care Interventions Neuro Re-education,Patient/Caregiver Educati, Therapeutic Activities,Therapeutic Exercise PT Services Indicated Yes Treatment Frequency and 2 times a week for 9 more visits Duration These treatments will address the objective and functional deficits as defined above. The patient will be advanced safely and appropriately in order for the patient to progress towards his/her prior level of function. Additional exercises will be introduced and as well as a comprehensive home exercise program upon discharge, if needed, ?to ensure carryover of functional gains achieved in the clinic. This treatment plan has been reviewed and agreement upon by the patient.
[2024-08-04 13:00] VITALS: O2SAT 50
--- NOTE | 2024-08-24 14:31 | OPREHPOC ---
Outpatient Therapy Plan of Care This is a Multidisciplinary Plan of Care that may contain components documented by all disciplines (PT, OT, and ST.) PT Problem 1 PT Problem #1 Knowledge Deficit PT Goal 1 Goal / Goal Update patient to demonstrate independence with HEP Target Visit 18 Progress Not Met PT Goal 2 Goal / Goal Update continue Progress Met PT Problem 2 PT Problem #2 Impaired Strength PT Goal 1 Goal / Goal Update Patient to demonstrate 4+/5 B LE strength to improve ability to ambulate prolonged distance Progress Not Met PT Goal 2 Goal / Goal Update continue Target Visit 18 Progress Partially Met PT Problem 3 PT Problem #3 Impaired Functional Mobility PT Goal 1 Goal / Goal Update 1. Patient to improve Tinetti Balance score by 5 points to decrease fall risk within the home 2. Patient to demonstrate TUG in <15 seconds to decrease fall risk within the home 3. Patient to ambulate 300' with no instance of R toe drag to decrease fall risk Progress Not Met PT Goal 2 Goal / Goal Update continue Target Visit [address] Problem 1 ST Problem #[address] Goal 1 Goal / Goal Update 1. Patient will participate in home programming to facilitate improve carryover of skills to home environment. Target Visit [address] Problem #[address] Goal 1 Goal / Goal Update 1. Patient will demonstrate improved orientation skills (temporal) with 90% accuracy and minimal cues. 2. Patient will complete recent memory and working memory tasks through paragraph recall, picture recall, paired words with 90% accuracy and minimal cues. 3. Patient will perform thought organizational tasks (sequencing, categorization tasks) with 90% accuracy and minimal cues. ST Problem 3 ST Problem #[address] Goal 1 Goal / Goal Update 1. Patient will complete word retrieval tasks through word finding activities (opposites, object function, synonyms) with 90% accuracy and minimal cues. 2. Patient will complete convergent/divergent naming tasks with 90% accuracy (naming 12+ items) with minimal cues. Target Visit [address] Problem #[address] Goal 1 Goal / Goal Update 1. Patient will imitate trisyllabic words with 90% accuracy and minimal cues to improve speech intelligibility skills. 2. Patient will imitate sentences at the 7+ word level with 90% accuracy and minimal cues to improve overall speech intelligibility skills through use of SLOP. Target Visit 10
--- NOTE | 2024-08-24 14:31 | PTOPDC ---
Assessment and note entered by Jennyfer Herrmann, PT Evaluation Information Assessment Status Progress Diagnosis weakness ICD-10 Condition Codes (PT) Weakness R53.1 Other ICD-10 Condition Codes ( I63.9 PT) Onset 06/20/24 Subjective Information Kelly Kaba reports she has not fallen and is ready to be done with PT. She denies pain. Her reports she seems burnt out on PT and he notices she does not put much effort into it anymore. Reported Pain Level Pain Score 0: Self Report Pain Score 0: Self Report Assessment PT Clinical Summary Kelly Kaba has completed 16 skilled PT visits for weakness following a CVA. She is denying falls recently and requests to be discharged from PT. She demonstrates improved LE strength. She continues to demonstrate poor balance, decreased hip strength, and impaired gait. She is still a high fall risk and continues to demonstrate a shuffling gait pattern. She will be discharged to her home exercise program. Plan of Care PT Services Indicated No
--- NOTE | 2024-09-01 14:56 | PCSTNOTE ---
Patient's father called & cancelled scheduled appointment this date due to patient currently in the hospital as an inpatient.
== END 2024-08-23 15:40 | disposition home or self-care (01) ==
LOC: CHSST 11:30
PROVIDERS: PCP Family Medicine; Visit Provider Nurse Practitioner Family
DX: I63.9 Cerebral infarction, unspecified (principal); R53.1 Weakness; R47.01 Aphasia
CPT/HCPCS: 92507; 92523; 96125; 97110; 97112; 97161; 97530; 97750

== ENCOUNTER 2024-08-31 08:06 | Emergency (ER) | payer MEDICARE, SELFPAY ==
[2024-08-31] VITALS (11 sets, daily range): BP systolic 113–132; BP diastolic 55–86; PULSE 65–73; RESP 14–21; TEMP 36.6; O2SAT 96–100
--- NOTE | ~2024-08-31 | XR_ITS ---
XR chest 1V portable Ordering provider: Bryn Talbert MD History: 79 years Female with . neuro symptoms, left leg heaviness . Comparison: August 02, 2023 FINDINGS: MEDIASTINUM: The cardiac silhouette is slightly enlarged. Device projected over the left hemithorax. LUNGS: No infiltrates, effusions or pneumothorax. OTHER: No free air under the diaphragm. IMPRESSION: No acute cardiopulmonary pathology. Reviewed, dictated and finalized at location A. LITY MAINTENANCE HELPER
--- NOTE | ~2024-08-31 | CT_ITS ---
EXAMINATION: CT brain wo con DATE: 08/31/2024 08:52 INDICATION: Weakness TECHNIQUE: Computed tomography (CT) of the head was performed without intravenous contrast. Sagittal and coronal reconstructions were performed. The mA was adjusted according to patient size. Iterative reconstruction technique was employed. The dose-length product was 605.33 mGy-cm. COMPARISON: head CT dated 06/13/24 FINDINGS: There is a small region of increased attenuation along the deep margin of the gyrus in the right fron thu lobe consistent with small focus of hemorrhage and favor intraparenchymal versus subarachnoid. Th ere are small old lacunar infarcts at left thalamus and bilateral basal ganglia including the bilater al lentiform nuclei and right caudate nucleus. No acute infarction or abnormal extra axial fluid gretel ection. There is extensive white matter hypoattenuation consistent with chronic small vessel ischemic disease. Symmetric prominence of the sulci consistent with mild to moderate age-appropriate diffuse cerebral volume loss. Ventricles are normal and symmetric. No mass/mass effect. Changes of bilateral intraocular lens replacement. Mild mucosal thickening with some bubbly mucus in the right sphenoid si nus. The orbits and mastoid air cells are normal. Intracranial calcified cerebral atherosclerosis is noted. IMPRESSION: 1. Small focus of acute hemorrhage at the right frontal lobe and favor intraparenchymal or subarachno id. Dr. Aranda discussed these findings with Dr. Stanton at 8:55 AM. 2. Aging brain with extensive white matter hypoattenuation consistent with chronic small vessel ische ni disease and a few small lacunar infarcts in the bilateral basal ganglia and left thalamus. Reviewed, dictated and finalized at location A. ICAL PSYCHOLOGY TEACHER IMPRESSION: 1. Small focus of acute hemorrhage at the right frontal lobe and favor intrapar enchymal or subarachnoid. Dr. Aranda discussed these findings with Dr. Sam persaud at 8:55 AM. 2. Aging brain with extensive white matter hypoattenuation consistent with chrome tanner pamela small vessel ischemic disease and a few small lacunar infarcts in the bilat eral basal ganglia and left thalamus.
--- NOTE | 2024-08-31 08:14 | ECG_ITS ---
Test Date: 2024-08-31 08:12:18 Measurements Intervals [place] Rate: 75 P: 0 OK: 0 QRS: 88 QRSD: 161 T: -32 QT: 425 QTc: 475 Interpretive Statements ELECTRONIC VENTRICULAR PACEMAKER Compared to ECG 06/13/2024 08:56:26 PACED RHYTHM NOW PRESENT Electronically Signed On 08-31-2024 14:42:13 TALENT ACQUISITION PARTNER by Simeon Lockwood M.D.
[2024-08-31 08:17] LABS: Glucose Point of Care 135 mg/dl (65-105)
[2024-08-31 08:50] LABS: Basophils Percent Auto 0.4 % (0.2-1.2); Eosinophils Absolute Auto 0.1 K/mm3 (0-0.3); Eosinophils Percent Auto 1.5 % (0-4.4); Hematocrit 27.4 % (37.0-47.0); Hemoglobin 8.3 g/dL (12.0-15.0); Immature Granulocyte Absolute 0.03 K/mm3 (0.00-0.031); Immature Granulocyte Percent A 0.3 % (0-0.5); Lymphocytes Absolute Auto 1.76 K/mm3 (0.9-3.2); Lymphocytes Percent Auto 19.2 % (18.3-44.2); Mean Corpuscular HGB Conc 30.3 g/dl (32-36); Mean Corpuscular Volume 89.3 fl (80-100); Mean Platelet Volume 8.8 fl (7.4-10.4); Monocytes Absolute Auto 0.7 K/mm3 (0.1-0.6); Neutrophils Absolute Auto 6.5 K/mm3 (1.3-6.7); Neutrophils Percent Auto 70.6 % (45.5-73.1); Platelet Count Result 370 k/mm3 (150-375); Red Blood Count 3.07 M/mm3 (4.2-5.4); White Blood Count 9.2 K/mm3 (4.5-10.0)
[2024-08-31 09:00] LABS: INR 2.1; Prothrombin Time 23.9 Seconds (11.1-14.7)
[2024-08-31 09:01] LABS: Partial Thromboplastin Time 43.5 Seconds (22.3-36.8)
[2024-08-31 09:07] LABS: Alanine Aminotransferase 28 U/L (6-35); Albumin Level 3.8 g/dL (3.5-5.1); Alkaline Phosphatase 101 U/L (38-126); Anion Gap 5 mmol/L (4-12); Aspartate Amino Transferase 33 U/L (14-36); Bilirubin,Total 0.4 mg/dL (0.2-1.3); Blood Urea Nitrogen 30 mg/dL (7-17); Calcium 9.4 mg/dL (8.4-10.2); Carbon Dioxide 27 mmol/L (22-30); Chloride 109 mmol/L (98-107); Estimated CRCL calculation 61 ml/min; Estimated Glomerular Filt Rate > 60; Glucose 120 mg/dL (65-110); Potassium 4.3 mmol/L (3.4-5.0); Sodium 141 mmol/L (137-145)
[2024-08-31 09:17] LABS: Troponin I < 0.012 ng/mL (0.000-0.034)
--- NOTE | 2024-08-31 09:42 | ED.NEUROSD ---
HPI - Neuro Symptoms/Deficit General Chief Complaint: Neuro Symptoms/Deficit Stated Complaint: left leg heavy, LNK 1800 last night Source: family Mode of arrival: EMS Limitations: no limitations History of Present Illness HPI Narrative: 79-year-old with a history of hypertension, diabetes, hyperlipidemia, AFib on Xarelto, CVA 3 years ago presents to the ER via ambulance with the complaints of left leg heaviness which started this morning. states that she was fine last night woke up this morning with the heaviness in the left leg and unable to ambulate. Patient denies any headache. Denies any falls. Onset (ago): hour(s) (2) Timing confirmed by: spouse Location: left leg Severity: moderate On Anticoagulants: Yes Associated symptoms: denies other symptoms Related Data Allergies Allergy/AdvReac Type Severity Reaction Status Date / Time JOAQUINA Inhibitors Allergy Intermediate angioedema Verified 08/31/24 08:47 hydrochlorothiazide (Dyazide) Allergy Intermediate Hyponatremi Verified 08/31/24 08:47 a lisinopril Allergy Intermediate TONGUE Verified 08/31/24 08:47 SWELLING triamterene (Dyazide) Allergy Intermediate Hyponatremi Verified 08/31/24 08:47 a codeine (Tylenol-Codeine #3) AdvReac Intermediate Sleepiness Verified 08/31/24 08:47 tramadol AdvReac Intermediate nausea Verified 08/31/24 08:47 cephalexin AdvReac Mild rash Verified 08/31/24 08:47 Review of Systems Review of Systems: All systems reviewed & are unremarkable except as noted in HPI and below Constitutional: Constitutional: Reports no additional constitutional complaints Eyes: Eyes: Reports no additional eye complaints ENT: Reports system reviewed and no additional complaints, except as documented Cardiovascular: Cardiovascular: Reports no additional cardiovascular complaints Respiratory: Respiratory: Reports no additional respiratory complaints Gastrointestinal: Gastrointestinal: Reports no additional gastrointestinal complaints Musculoskeletal: Musculoskeletal: Reports no additional musculoskeletal complaints Neurologic: Reports as per HPI Psychiatric: Psychiatric: Reports no additional psychiatric complaints [facility] Past Medical History Medical History Anemia, iron deficiency H/O: stroke Junctional rhythm Symptomatic bradycardia Chronic anticoagulation Chronic obstructive pulmonary disease Tobacco abuse Alcohol use disorder Atypical atrial flutter Pseudophakia Hypertensive retinopathy of both eyes Nicotine dependence Vitamin D deficiency Venous stasis ulcer Osteopenia Osteoarthritis Macular degeneration Hypertension associated with diabetes Type 2 diabetes mellitus, without long-term current use of insulin Surgical History Surgical History History of cataract removal with insertion of prosthetic lens Right eye only History of right knee joint replacement (2014) History of cholecystectomy History of appendectomy Family History Family History Father Hypertension Mother Hypertension Ovarian cancer Other Arthritis Diabetes mellitus Social History Social History Social History: Surrogate medical decision maker: Tomas Kaba, spouse. Code status: Full code. Smoking packs per day: 1 Smoking cigarettes per day: 20.0 Years smoked: 63 Smoking pack-years: 63.00 Smoking status: Current every day smoker Tobacco type: cigarettes Second hand tobacco smoke exposure: Yes Alcohol intake: current Alcohol use details: No alcohol in 2 weeks as of 07/27/2023. Substance use: never Substance use type: does not use Do You Feel Safe in your Home?: Yes Lack of Transportation: No Lack of Food: Never True Current Housing: I Have Housing Concerned About Future Housing: No Difficulty Paying Gas/Electric Bills: No Difficulty Paying for Meds: No Currently Unemployed: No Education: High School Diploma/GED Difficulty w/ Childcare or Family Care: No Living arrangements: with family Occupation/Education: retired Spiritual care concerns: No Exam Narrative: GENERAL: Well-appearing, well-nourished, and in no acute distress. HEAD: Normocephalic, atraumatic. EYES: PERRLA and EOMI. ENT: Nares clear, no rhinorrhea or epistaxis. Mucous membranes moist.has old left facial droop NECK: Supple. CHEST: Clear to auscultation. No respiratory distress. HEART: Regular rate and rhythm. No murmur heard. Normal peripheral pulses. ABDOMEN: Soft, nontender, nondistended, normal active bowel sounds. EXTREMITIES: Normal range of motion. No edema. SKIN: Warm, dry, no rash. NEURO: right hemiplegia Alert and oriented x3. PSYCH: Normal mood and affect. Course Course Emergency Course: Notified patient and about her lab work and CT findings. I discussed with the Stroke Neurology at [facility] agreed with management will accept the pt in transfer . Notified . Dr. Gallardo will accept the Pt. to ED . CT of the head shows a small intraparenchymal bleed , she is on Xarelto will give Kcentra. Vital Signs Vital signs: Vital Signs Temperature 36.6 C 08/31/24 08:04 Pulse Rate 70 08/31/24 08:04 Respiratory Rate 17 08/31/24 08:04 Blood Pressure 132/65 08/31/24 08:04 Pulse Oximetry 100 08/31/24 08:04 Oxygen Delivery Room Air 08/31/24 08:04 Temperature 36.6 C 08/31/24 08:04 Pulse Rate 71 08/31/24 09:15 Respiratory Rate 21 H 08/31/24 09:15 Blood Pressure 116/56 L 08/31/24 09:15 Pulse Oximetry 96 08/31/24 09:15 Oxygen Delivery Room Air 08/31/24 08:04 MDM - Neuro Symptoms/Deficit MDM Narrative Medical decision making narrative: 39-year-old with a history of CVA, AFib on Xarelto with sudden onset of the weakness and, heaviness in the left leg will do a CT of the head to rule out stroke, obtain lab work we did Differential Diagnosis Differential diagnosis: Likely subarachnoid hemorrhage, cerebrovascular accident and transient cerebral ischemia Medical Records Attestation: I reviewed the patient's medical records. Medical records narrative: ITS Impressions Chest X-Ray 08/31/24 08:22 IMPRESSION: No acute cardiopulmonary pathology. Head CT 08/31/24 08:55 IMPRESSION: 1. Small focus of acute hemorrhage at the right frontal lobe and favor intraparenchymal or subarachnoid. Dr. Aranda discussed these findings with Dr. Stanton at 8:55 AM. 2. Aging brain with extensive white matter hypoattenuation consistent with chronic small vessel ischemic disease and a few small lacunar infarcts in the bilateral basal ganglia and left thalamus. Lab Data 08/31/24 08:43 08/31/24 08:43 Labs: Lab Results 08/31/24 08/31/24 Range/Units 08:14 08:43 WBC 9.2 (4.5-10.0) K/mm3 RBC 3.07 L (4.2-5.4) M/mm3 Hgb 8.3 L (12.0-15.0) g/dL Hct 27.4 L (37.0-47.0) % MCV 89.3 (80-100) fl MCH 27.0 (26-34) pg MCHC 30.3 L (32-36) g/dl RDW 15.0 H (11.5-14.5) % Plt Count 370 (150-375) k/mm3 MPV 8.8 (7.4-10.4) fl Immature Gran % (Auto) 0.3 (0-0.5) % Neut % (Auto) 70.6 (45.5-73.1) % Lymph % (Auto) 19.2 (18.3-44.2) % [place] % (Auto) 8.0 (2.6-8.5) % Eos % (Auto) 1.5 (0-4.4) % Baso % (Auto) 0.4 (0.2-1.2) % Lymph # (Auto) 1.76 (0.9-3.2) K/mm3 [place] # (Auto) 0.7 H (0.1-0.6) K/mm3 Eos # (Auto) 0.1 (0-0.3) K/mm3 Baso # (Auto) 0.0 (0.0-0.1) K/mm3 Abs Immat Gran (auto) 0.03 (0.00-0.031) K/mm3 Absolute Neuts (auto) 6.5 (1.3-6.7) K/mm3 Absolute Nucleated RBC 0.000 (0.0-0.012) K/mm3 Nucleated RBC % 0.0 (0.0-0.2) % PT 23.9 H (11.1-14.7) Seconds INR 2.1 APTT 43.5 H (22.3-36.8) Seconds Sodium 141 (137-145) mmol/L Potassium 4.3 (3.4-5.0) mmol/L Chloride 109 H (98-107) mmol/L Carbon Dioxide 27 (22-30) mmol/L Anion Gap 5 (4-12) mmol/L BUN 30 H D (7-17) mg/dL Creatinine 0.90 (0.7-1.0) mg/dL Estim Creat Clear Calc 61 ml/min Estimated GFR > 60 (59 - ) Glucose 120 H (65-110) mg/dL POC Capillary Glucose 135 H (65-105) mg/dl Calcium 9.4 (8.4-10.2) mg/dL Total Bilirubin 0.4 (0.2-1.3) mg/dL AST 33 (14-36) U/L ALT 28 (6-35) U/L Alkaline Phosphatase 101 (38-126) U/L Troponin I < 0.012 (0.000-0.034) ng/mL Total Protein 7.0 (6.3-8.2) g/dL Albumin 3.8 (3.5-5.1) g/dL ECG Data EKG #1: ECG completion date: 08/31/24 ECG completion time: 08:12 Ischemic changes: poor r wave progression EKG Interpretation: normal rate (75) Pacemaker function: normal pacer function Critical Care Time Critical Care Time Critical Care Time: Yes Total Critical Care Time: 45 Discharge Plan Discharge Clinical Impression: Hemorrhagic stroke Patient Disposition: Acute Care Hospital Condition: Stable Patient Language: Moroccan Prescriptions: No Action atenolol 25 mg tablet 12.5 mg .ROUTE .COMPLEX Qty: 45 3RF Rx Instructions: 12.5 mg; aspirin 81 mg Tablet,Delayed Release (Dr/Ec) 81 mg PO QAM Qty: 30 0RF albuterol sulfate 2.5 mg /3 mL (0.083 %) solution for nebulization See Rx Instructions .ROUTE .COMPLEX Qty: 30 11RF Dose Instruction: USE 1 VIAL IN NEBULIZER DAILY - for rescue Rx Instructions: USE 1 VIAL IN NEBULIZER DAILY - for rescue metformin 500 mg tablet See Rx Instructions .ROUTE .COMPLEX Qty: 90 3RF Dose Instruction: TAKE 1 TABLET BY MOUTH DAILY Rx Instructions: TAKE 1 TABLET BY MOUTH DAILY spironolactone 50 mg tablet See Rx Instructions .ROUTE .COMPLEX Qty: 90 3RF Dose Instruction: TAKE 1 TABLET BY MOUTH DAILY Rx Instructions: TAKE 1 TABLET BY MOUTH DAILY losartan 50 mg tablet See Rx Instructions .ROUTE .COMPLEX Qty: 90 3RF Dose Instruction: TAKE 1 TABLET BY MOUTH DAILY Rx Instructions: TAKE 1 TABLET BY MOUTH DAILY amiodarone 100 mg tablet 100 mg PO DAILY Qty: 90 2RF Xarelto 20 mg tablet See Rx Instructions .ROUTE .COMPLEX Qty: 90 3RF Dose Instruction: TAKE 1 TABLET BY MOUTH DAILY AT 1700 Rx Instructions: TAKE 1 TABLET BY MOUTH DAILY AT 1700 atorvastatin 40 mg tablet See Rx Instructions .ROUTE .COMPLEX Qty: 90 3RF Dose Instruction: TAKE 1 TABLET BY MOUTH AT BEDTIME Rx Instructions: TAKE 1 TABLET BY MOUTH AT BEDTIME Perforomist 20 mcg/2 mL solution for nebulization See Rx Instructions .ROUTE .COMPLEX Qty: 60 11RF Dose Instruction: USE 1 VIAL IN NEBULIZER TWICE DAILY - morning and evening Rx Instructions: USE 1 VIAL IN NEBULIZER TWICE DAILY - morning and evening budesonide 0.5 mg/2 mL suspension for nebulization See Rx Instructions .ROUTE .COMPLEX Qty: 60 11RF Dose Instruction: USE 1 VIAL IN NEBULIZER TWICE DAILY - Rinse Mouth After Each Treatment Rx Instructions: USE 1 VIAL IN NEBULIZER TWICE DAILY - Rinse Mouth After Each Treatment Follow-up/Referrals: Angélica Horton NP [Primary Care Provider] - Time of Disposition: 09:57 Quality Stroke Date of last known normal: 08/30/24 Time of last known normal: 18:00 Stroke Scale Stroke Scale 1: Stroke scale date:: 08/31/24 Stroke scale time:: 08:30 1a Level of consciousness: alert-0 1b Level of consciousness questions: answers both correctly-0 1c Level of consciousness commands: obeys both correctly-0 2 Best gaze: normal-0 3 Visual: no visual loss-0 4 Facial palsy: partial paralysis-2 (left( Old )) 5a Motor: left arm: no drift-0 5b Motor: right arm: no drift-0 6a Motor: left leg: no drift-0 6b Motor: right leg: no drift-0 7 Limb ataxia: absent-0 8 Sensory: normal-0 9 Best language: some loss of fluency-1 10 Dysarthria: normal-0 11 Extinction and inattention: no abnormality-0 Level:: 3
[2024-08-31] MEDS: HUMAN PROTHROMBIN COMPLEX IV CONT (09:46)
[2024-08-31] MEDS: [UNRECOGNIZED DRUG - OTHER] IV CONT (09:46)
== END 2024-08-31 10:12 | disposition short-term general hospital (02) ==
PROVIDERS: Emergency Provider Family Medicine; PCP Nurse Practitioner Family
DX: I62.9 Nontraumatic intracranial hemorrhage, unspecified (principal); R29.703 NIHSS score 3; J44.9 Chronic obstructive pulmonary disease, unspecified; I48.91 Unspecified atrial fibrillation; I48.4 Atypical atrial flutter; E11.9 Type 2 diabetes mellitus without complications; I15.2 Hypertension secondary to endocrine disorders; E55.9 Vitamin D deficiency, unspecified; D50.9 Iron deficiency anemia, unspecified; H35.30 Unspecified macular degeneration; H35.033 Hypertensive retinopathy, bilateral; M85.80 Other specified disorders of bone density and structure, unspecified site; M19.90 Unspecified osteoarthritis, unspecified site; F17.210 Nicotine dependence, cigarettes, uncomplicated; Z96.1 Presence of intraocular lens; Z98.41 Cataract extraction status, right eye; Z90.49 Acquired absence of other specified parts of digestive tract; Z79.01 Long term (current) use of anticoagulants; Z79.84 Long term (current) use of oral hypoglycemic drugs; Z79.82 Long term (current) use of aspirin; Z79.899 Other long term (current) drug therapy
CPT/HCPCS: 36415; 70450; 71045; 80053; 82948; 84484; 85025; 85610; 85730; 93005; 96374; 99291; J7168

== ENCOUNTER 2024-11-03 12:18 | Outpatient (CLI) | payer MEDICARE, SELFPAY ==
--- NOTE | ~2024-11-03 | US_ITS ---
EXAMINATION: US thyroid DATE: 11/03/2024 12:49 INDICATION: Nontoxic single thyroid nodule. TECHNIQUE: Multiple ultrasound images of the thyroid were obtained. COMPARISON: Ultrasound 09/02/2022, 12/14/2013 FINDINGS: The right thyroid lobe measures 4.0 x 1.3 x 2.0 cm. The left thyroid lobe measures 4.7 x 1.8 x 2.8 c m. In the right thyroid lobe, there is a 7 mm solid, hypoechoic, solid nodule with lobulated margin without echogenic foci (TI-RADS TR4). In the left thyroid lobe, there is a 6 mm solid, hypoechoic, wi jyothi than tall nodule with smooth margin and peripheral calcifications (TR4). In the left thyroid lobe , there is a 22 mm solid, hypoechoic, wider than tall nodule with smooth margin without echogenic foc i (TR4), stable from 12/14/13, likely benign. IMPRESSION: 1. Thyroid nodules, likely not clinically significant. No follow-up is needed. Reviewed, dictated and finalized at location A. DERING CLERK
--- OUTSIDE RECORDS SUMMARY | 2024-11-03 12:21 | XMS_ITS | Clinical Summary ---
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 Role Phone Angélica Horton NP Primary Care Provider [phone] Allergies Active Allergy Reactions Criticality Noted Date Comments Unruly Inhibitors Angioedema High 10/16/2022 Acetaminophen Fatigue Low 10/16/2022 Codeine Fatigue Low 10/16/2022 Hydrochlorothiazide Other (See comments) High 2022 HYPONATREMIA Lisinopril Swollen tongue High 10/16/2022 Tramadol Nausea only Low 10/16/2022 Triamterene Other (See comments) Low 10/16/2022 HYPONATREMIA Medications Xarelto 20 mg tablet 1 tablet (20 mg total) 3 Active aspirin 81 mg enteric coated tablet 1 tablet (81 mg total) 2 Active atorvastatin (LIPITOR) 40 mg tablet 1 tablet (40 mg total) 3 Active atenoloL (TENORMIN) 25 mg tablet 1 tablet (25 mg total) 2 Active losartan (COZAAR) 100 mg tablet 1 tablet (100 mg total) 2 Active spironolactone (ALDACTONE) 50 mg tablet 1 tablet (50 mg total) 3 Active metFORMIN (GLUCOPHAGE) 500 mg tablet 1 tablet (500 mg total) 3 Active vitamins A,C,E-zinc-mayela er (ICAPS) 14,320-226-200 cmef-mc-owmy capsule Take by mouth Active cholecalciferol (VITAMIN D-3) 81611 unit tablet Take 2,000 Units by mouth daily Active albuterol 2.5 mg /3 mL (0.083 %) nebulizer solution Take 3 mL (2.5 mg total) by nebulization every 6 (six) hours as needed for wheezing Active budesonide (PULMICORT) 0.25 mg/2 mL nebulizer solution Take 2 mL (0.25 mg total) by nebulization daily Rinse mouth with water after use. Do not swallow. Active formoterol (PERFOROMIST) 20 mcg/2 mL nebulizer solution Take by nebulization 2 (two) times a day Active amiodarone (PACERONE) 200 mg tablet Take 1 tablet (200 mg total) by mouth daily 3 Active fluticasone (VERAMYST) 27.5 mcg/actuation nasal sprayIndication s:Allergic Rhinitis Administer 2 sprays into each nostril daily Active Active Problems Problem Noted Date Diagnosed Date Cardiac pacemaker in situ 07/30/2023 Overview (07/30/2023): Medtronic Micra AV Leadless Pacemaker. Dx; Tachy/Deniz, Junctional, PAF. DOI 07/30/2023-Tila. Carelink has not been ordered yet. Atrial fibrillation (CMS/[facility]) 02/20/2023 Aphasia as late effect of stroke 02/20/2023 Neuropathy 02/20/2023 Cerebrovascular accident 02/20/2023 Chronic obstructive pulmonary disease 10/16/2022 Enthesopathy of knee 10/16/2022 Essential hypertension 10/16/2022 Osteoarthritis of knee 10/16/2022 Peripheral enthesopathy 10/16/2022 Right bundle branch block 10/16/2022 Immunizations Immunization Administration Dates Next Due Influenza, Quad, Adjuvantate d, Intramuscular 07/16/2021 Influenza, Quadrivalent, Hig h Dose, Preservative Free, Intrr 07/17/2022 Influenza, Trivalent, High D ose, Split, Preservative Free, Intramuscular 06/21/2019,07/06/2018,06/23/2017,06/30,08/02/2015 Influenza, Unspecified 09/29/2014 Pneumococcal Conjugate PCV 13 06/19/2020 Tdap 03/26/2011 Surgical History Surgery Date Site/Laterality Comments CHOLECYSTECTOMY 09/14/1969 - 09/13/1970 TOTAL KNEE ARTHROPLASTY 09/14/2009 - 09/13/2010 OVARIAN CYST SURGERY 09/14/1971 - 09/13/1972 Medical History Medical History Date Comments Chronic obstructive pulmonary disease (HCC) COPD Hypertension Hypertension Abnormal ECG Carotid artery disease (HCC) Type 2 diabetes mellitus (HCC) Infectious viral hepatitis Osteoarthritis Stroke (HCC) Family History Medical History Relation Name Comments Cancer Brother Heart disease Father Lung cancer Father Cancer Mother Hypertension Mother Other Other No family histo ry of Thyroid disorder; Relation Name Status Comments Brother Father Mother Other Social History Tobacco Use Types Packs/Day Years Used Date Smoking Tobacco: Every Day Cigarettes Smokeless Tobacco: Never Tobacco Cessation:Ready to Q uit: Not Asked; Counseling Given: Not Answered Alcohol Use Standard Drinks/Week Comments Yes 0 (1 standard drink = 0.6 oz pur e alcohol) AUDIT-C Answer Date Recorded Q1: How often do you have a drink containing alcohol? Never 10/16/2022 Q2: How many drinks containi ng alcohol do you have on a typical day when you are drinking? Patient does not drink Q3: How often do you have si x or more drinks on one occasion? 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 Gender Identity Not on file Sexual Orientation Not on file Obstetrics History Last Filed Vital Signs Vital Sign Reading Time Taken Comments Blood Pressure 103/57 02/20/2023 9:22 AM CDT Pulse 53 02/20/2023 9:22 AM CDT Temperature 36.4 C (97.5 F) 12/24/2022 8:33 AM CDT Respiratory Rate - - Oxygen Saturation 100% 12/24/2022 8:33 AM CDT Inhaled Oxygen Concentration - - Weight 57.6 kg (127 lb) 02/20/2023 9:22 AM CDT Height 157.5 cm (5' 2 ) 02/20/2023 9:22 AM CDT Body Mass Index 23.23 02/20/2023 9:22 AM CDT Plan of Treatment Health Maintenance Due Date Last Done Comments Depression Screening 1945 Fall Risk Assessment 1945 Hepatitis C Screening 1945 Osteoporosis Screening-Bone Density Scan 1945 Hepatitis B Screening 1965 Zoster Vaccine (1 of 2) 1997 Well Visit 65+ 2012 Pneumococcal vaccine 65+ (2 of 2 - PPSV23) 08/14/2020 06/19/2020 DTaP/Tdap/Td Vaccine (2 - Td or Tdap) 03/26/2021 03/26/2011 Covid-19 Vaccine (5 - 2023-2 5 season) 2024 07/17/2022, 07/16/2021, 12/13/2020, Additional history exists Influenza Vaccine (#1) 2024 , 07/16/2021, 06/21/2019, Additional history exists Insurance MEDICARE AETNA MEDICARE AETNA Care Teams Dredge Pump Operator Relationship Specialty Start Date End Date Angélica Horton NP [address] [place] [address] PCP - General Nurse Practitioner 10/07/22
--- OUTSIDE RECORDS SUMMARY | 2024-11-03 12:21 | XMS_ITS | Clinical Summary ---
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 Name Role Phone Unavailable Primary Care Provider Unavailabl e Social History Tobacco Use Types Packs/Day Years Used Date Smoking Tobacco: Never Assessed Comments Unknown Sex and Gender Information Value Date Recorded Sex Assigned at Not on file Legal Sex Female 11:51 AM CDT Gender Identity Not on file Sexual Orientation Not on file Plan of Treatment Health Maintenance Due Date Last Done Comments Hepatitis C 1965 DTaP, Tdap and Td Vaccines ( 1 - Tdap) 1966 Zoster Vaccines (1 of 2) 1997 Annual Medicare Wellness Visit 2012 Dexa Scan (General) 2012 Pneumococcal Vaccine: 65+ Ye ars (1 of 1 - PCV) 2012 RSV Immunization or 60+ Years (1 - 1-dose 75+ series) 2022 COVID-19 Vaccine ( - 2023-2 5 season) 2024 Influenza Adult (#1) 2024 Meningococcal B Vaccine Aged Out No l onger eligible based on patient's age to complete this topic Meningococcal Vaccine Aged Out No noris era eligible based on patient's age to complete this topic RSV Immunizations Under 20 Months Aged Out No longer eligible based on patient's age to complete this topic Insurance MEDICARE [facility]
--- OUTSIDE RECORDS SUMMARY | 2024-11-03 12:21 | XMS_ITS | Clinical Summary ---
Author Organization [facility] Address [address] [place] [address] Care Team Providers Care Mottle Lay Up Operator Name Role Phone Provider, No Pcp Primary Care Provider Unavailab le Source Comments [facility],non-owned Affiliates and Associated Physician Practices is amultiple site organization consisting of ambulatory clinics and hospital sitesin [place], [place], [place] and [place]. This disclosure is being madepursuant to the Care Everywhere program and may not contain all information available regarding this patient. Last updated 18.[facility] Allergies Active Allergy Reactions Criticality Noted Date Comments Unruly Inhibitors Angioedema,Anaphylaxis High Acetaminophen Other Low 10/16/2022 Codeine Other Low 10/16/2022 Hydrochlorothiazide Other High 10/16/2022 HYPONATREMIA Tramadol Nausea and/or Vomiting Low 10/16/2022 Triamterene Other Low 10/16/2022 HYPONATREMIA Medications * Be aware that medications may not be up to date on this document. Alwaysverify current medications with the patient. Medication Sig Dispensed Refills Start Date End Date Status amiodarone (Pacerone) 100 MG tabletIndications: Atrial Fibrillation Take 1 (one) tablet by mouth once daily Reasons: Atrial Fibrillation 90 tablet 3 09/04/2024 09/04/2025 Active atenolol (Tenormin) 25 MG tabletIndications: Atrial Fibrillation Take 1 (one) tablet by mouth once daily Reasons: Atrial Fibrillation 90 tablet 3 09/04/2024 09/04/2025 Active atorvastatin (Lipitor) 40 MG tablet Take 1 (one) tablet by mouth at bedtime 100 tablet 3 09/03/2024 09/03/2025 Active losartan (Cozaar) 50 MG tablet Take 1 (one) tablet by mouth once daily 100 tablet 3 09/04/2024 09/04/2025 Active rivaroxaban (Xarelto) 20 MG tabletIndications: Atrial Fibrillation,Deep Vein Thrombosis Take 1 (one) tablet by mouth daily with dinner Reasons: Atrial Fibrillation, Blood Clot in a Deep Vein 90 tablet 3 09/03/2024 09/03/2025 Active spironolactone (Aldactone) 50 MG tablet Take 1 (one) tablet by mouth once daily 90 tablet 3 09/04/2024 09/04/2025 Active vitamin D3 (Cholecalciferol) 25 MCG (1000 UNITS) tablet Take 2 (two) tablets by mouth once daily Active Multiple Vitamins-Minerals (PreserVision AREDS 2) capsule Take 2 (two) capsules by mouth 2 times daily Active Active Problems Problem Noted Date Diagnosed Date Left leg weakness 09/02/2024 ICH (intracerebral hemorrhage) 08/31/2024 A-fib 08/31/2024 COPD (chronic obstructive pulmonary disease) HLD (hyperlipidemia) 08/31/2024 DM (diabetes mellitus) 08/31/2024 Nontraumatic hemorrhage of right cerebral hemisp here 08/31/2024 Generalized weakness 08/31/2024 Encounters Date Type Department Care Team Description 10/31/2024 10:30 AM [facility] Video Visit [facility] - Neurology [address] [place] [address] Maris Abbott PA-C 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) ; Primary hypertension; Longstanding persistent atrial fibrillation (HCC); Type 2 diabetes mellitus without complication, without long-term current use of insulin (HCC) 08/31/2024 10:40 AM PRODUCT C[facility]FTSMAN - 09/03/2024 2:12 PM [facility] Hospital Encounter [facility] 5N ACUTE [address] [place] [id number] Austin Stapleton MD Esechie, Aimalohi, MD Linares, MD [facility] Discharge Disposition: Home or Self Care 08/31/2024 Travel from Last 3 Months Social History Tobacco Use Types Packs/Day Years Used Date Smoking Tobacco: Never Smokeless Tobacco: Never Tobacco Cessation:Counseling Given: Not Answered Alcohol Use Standard Drinks/Week Comments Not Currently 0 (1 standard drink = 0.6 oz pur e alcohol) AUDIT-C Answer Date Recorded Q1: How often do you have a drink containing alc ohol? Monthly or less 08/31/2024 Q2: How many drinks containi ng alcohol do you have on a typical day when you are drinking? 3 or 4 08/31/2024 Q3: How often do you have si x or more drinks on one occasion? Less than monthly 08/31/2024 Overall Financial Resource Strain (CARDIA) Answe r Date Recorded How hard is it for you to pa y for the very basics like food, housing, medical care, and heating? Not hard at all 08/31/2024 PHQ-2 Answer Date Recorded Patient Health Questionnaire-2 Score 0 09/03/2024 [facility] - Occupational Stress Questionnaire Answer Date Recorded Do you feel stress - tense, restless, nervous, or anxious, or unable to sleep at night because your mind is troubled all the time - these days? Only a little 08/31/2024 Hunger Vital Sign Answer Date Recorded Within the past 12 months, y ou worried that your food would run out before you got the money to buy more. Never true 08/31/20 24 Within the past 12 months, t he food you bought just didn't last and you didn't have money to get more. Never true 08/31/2024 PRAPARE - Transportation Answer Date Re corded In the past 12 months, has l ack of transportation kept you from medical appointments or from getting medications? No 08/14 In the past 12 months, has l ack of transportation kept you from meetings, work, or from getting things needed for daily living? No 08/31/2024 Housing Stability Vital Sign Answer Brendon e Recorded In the last 12 months, was t here a time when you were not able to pay the mortgage or rent on time? No 08/31/2024 In the past 12 months, how m any times have you moved where you were living? 0 08/31/2024 At any time in the past 12 m [facility], were you homeless or living in a retirement (including now)? No 08/31/2024 Sex and Gender Information Value Date Recorded Sex Assigned at Not on file Gender Identity Not on file Sexual Orientation Not on file Last Filed Vital Signs Vital Sign Reading Time Taken Comments Blood Pressure 141/70 09/03/2024 8:04 AM PRODUCT [facility]FTSMAN Pulse 105 09/03/2024 8:04 AM [facility]ODUCT [facility]FTSMAN Temperature 36.6 C (97.9 F) 09/03/2024 8:04 AM PRODUCT [facility]FTSMAN Respiratory Rate 18 09/03/2024 8:04 AM PRODUCT CRAFTSMAN Oxygen Saturation 100% 09/03/2024 8:04 AM PRODUCT CRAFTSMAN Inhaled Oxygen Concentration - - Weight 56.7 kg (125 lb) 09/01/2024 8:07 PM PRODUCT C[facility]FTSMAN Height 162.6 cm (5' 4 ) 09/01/2024 8:07 PM [facility]ODUCT [facility]SMAN Body Mass Index 21.46 09/01/2024 8:07 PM PRODUCT CRAFTSMAN Plan of Treatment Health Maintenance Due Date Last Done Comments BONE DENSITY TESTING 1945 MEDICARE AWV 12 MONTHS 1945 HEPATITIS C SCREENING 08/01/1965 DTAP/TDAP/TD VACCINES (1 - Tdap) 1966 PNEUMOCOCCAL VACCINE 50+ (1 of 2 - PCV) 1966 ZOSTER VACCINE (1 of 2) 1997 Respiratory Syncytial Virus (RSV) Vaccine Pt: or over 60 yrs (1 - 1-dose 75+ series) 2022 DIABETES RETINOPATHY SCREENING 08/31/2024 DIABETES-FOOT EXAM WITH MONOFILAMENT 08/31/2024 DEPRESSION SCREENING 09/14/2024 08/31/2024 DIABETES - URINE PROTEIN SCREENING 09/14/2024 DIABETES-HGB A1C 03/01/2025 08/31/2024 DIABETES-SERUM CREATININE 09/03/20252023, 09/02/2024, 09/01/2024, Additional history exists COVID-19 VACCINE Completed 06/07/2024, , 07/17/2022, Additional history exists INFLUENZA VACCINE Completed 06/07/2024, , 07/17/2022, Additional history exists HEPATITIS B VACCINE Aged Out No longe r eligible based on patient's age to complete this topic HIB VACCINE Aged Out No longer eligi ble based on patient's age to complete this topic HPV VACCINE Aged Out No longer eligi ble based on patient's age to complete this topic MENINGOCOCCAL (Group B) VACCINE Aged Out No longer eligible based on patient's age to complete this topic MENINGOCOCCAL VACCINE Aged Out No noris era eligible based on patient's age to complete this topic Procedures Procedure Name Priority Date/Time Associated Diagnosis Comments GLUCOSE - POINT OF CARE Routine 09/03/2024 12:25 PM [facility]SMAN PHOSPHORUS BLOOD Routine 09/03/2024 2:10 AM [facility] [facility]SMAN 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) MAGNESIUM BLOOD Routine 09/03/2024 2:10 AM [employer]SMAN 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) CBC W AUTO DIFFERENTIAL Routine 09/03/2024 2:10 AM [facility] [facility] 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) BASIC METABOLIC PANEL (CALCIUM TOTAL) Routine 09/03/2024 2:10 AM [facility] [facility]SM[facility] 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) GLUCOSE - POINT OF CARE Routine 09/02/2024 11:25 PM [facility]SMAN GLUCOSE - POINT OF CARE Routine 09/02/2024 9:19 PM [facility]SM[facility] MRI BRAIN WO CONTRAST Routine 09/02/2024 4:44 PM [facility] [facility]SMAN 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) GLUCOSE - POINT OF CARE Routine 09/02/2024 11:58 AM [facility] [facility]SMAN VAS BILATERAL VENOUS DUPLEX LE Routine 09/02/2024 11:36 AM [facility] [facility]SMAN Acute deep vein thrombosis (DVT) of distal vein of left lower extremity (HCC) GLUCOSE - POINT OF CARE Routine 09/02/2024 3:55 AM [facility]FTSMAN CBC W AUTO DIFFERENTIAL Routine 09/02/2024 1:56 AM [facility] [facility] 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) PHOSPHORUS BLOOD Routine 09/02/2024 1:55 AM [facility] [facility] 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) MAGNESIUM BLOOD Routine 09/02/2024 1:55 AM [facility] [facility] 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) BASIC METABOLIC PANEL (CALCIUM TOTAL) Routine 09/02/2024 1:55 AM [facility] [facility] 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) GLUCOSE - POINT OF CARE Routine 09/01/2024 11:57 PM [facility] [facility]SMAN GLUCOSE - POINT OF CARE Routine 09/01/2024 8:07 PM [facility] [facility]FTSMAN GLUCOSE - POINT OF CARE Routine 09/01/2024 4:05 PM [facility] [facility]SMAN GLUCOSE - POINT OF CARE Routine 09/01/2024 11:21 AM [employer] [facility]FTSMAN GLUCOSE - POINT OF CARE Routine 09/01/2024 7:57 AM [facility] [facility]FTSMAN GLUCOSE - POINT OF CARE Routine 09/01/2024 3:52 AM [facility] [facility] PHOSPHORUS BLOOD Routine 09/01/2024 1:42 AM [facility]SMAN 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) MAGNESIUM BLOOD Routine 09/01/2024 1:42 AM [facility] [facility]SM[facility] 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) CBC W AUTO DIFFERENTIAL Routine 09/01/2024 1:42 AM [facility] [facility]SM[facility] 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) BASIC METABOLIC PANEL (CALCIUM TOTAL) Routine 09/01/2024 1:42 AM [facility]SM[facility] 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) GLUCOSE - POINT OF CARE Routine 09/01/2024 12:18 AM [facility]SMAN GLUCOSE - POINT OF CARE Routine 08/31/2024 9:27 PM [facility] [facility]FTSMAN GLUCOSE - POINT OF CARE Routine 08/31/2024 6:32 PM [facility]SMAN GLUCOSE - POINT OF CARE Routine 08/31/2024 5:44 PM [facility] BLOOD TYPE VERIFICATION STAT 08/31/2024 4:12 PM [facility] HEMOGLOBIN A1C Add on 08/31/2024 4:12 PM [facility]AN 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) TROPONIN-I HIGH SENSITIVE BASELINE + 1HR Add on 08/31/2024 4:12 PM [facility]SMAN 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) GLUCOSE - POINT OF CARE Routine 08/31/2024 3:01 PM [facility]SMAN URINALYSIS REFLEX TO MICROSCOPIC NO CULTURE STAT 08/31/2024 2:54 PM [facility] [facility]FTSMAN URINE DRUG SCREEN IMMUNOASSAY STAT 08/31/2024 2:54 PM [facility] [facility]SM[facility] 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) CULTURE URINE STAT 08/31/2024 2:54 PM PRODUCT CRAFTSMAN EKG 12-LEAD STAT 08/31/2024 11:06 AM PRODUCT CRAFTSMAN Generalized weakness TYPE + SCREEN PANEL STAT 08/31/2024 1 1:02 AM PRODUCT CRAFTSMAN PTT SLH Routine 08/31/2024 11:02 AM [facility]ODUCT [employer]SMAN 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) PT-INR [facility]H STAT 08/31/2024 11:02 AM [facility] [facility]SMAN COMPREHENSIVE METABOLIC PANEL STAT 08/31/2024 11:02 AM PRODUCT CRAFTSMAN CBC W AUTO DIFFERENTIAL STAT 08/31/2024 11:[address] ANGIO BRAIN NECK STROKE STAT 08/31/2024 11:00 AM PRODUCT CRAFTSMAN Generalized weakness CREATININE - POCT INTERFACED Routine 08/31/2024 10:53 AM PRODUCT CRAFTSMAN INR WHOLE BLOOD - POINT OF CARE (IP) STROKE Routine 08/31/2024 10:[address] BRAIN STROKE STAT 08/31/2024 10:50 AM PRODUCT C[employer]FTSMAN Generalized weakness GLUCOSE - POINT OF CARE Routine 08/31/2024 10:45 AM PRODUCT CRAFTSMAN from Last 3 Months Results * (ABNORMAL) GLUCOSE - POINT OF CARE (09/03/2024 12:25 PM PRODUCT CRAFTSMAN) Only the most recent of17 resultswithin the time period is included. [facility] Glucose WB/POC 168(H) 70 - 99 mg/dL 09/03/2024 2:56 PM PRODUCT C[facility]FTSMAN [facility] Specimen Type Arterial 09/03/2024 2:56 PM PRODUCT C[employer]FTSMAN [facility] Blood BLOOD SPECIMEN / Unknown 09/03/2024 12:25 PM PRODUCT CRAFTSMAN 09/03/2024 2:56 PM PRODUCT CRAFTSMAN Reina Ma MD LAB - POINT OF CARE ORDERABLES Performing Organization Address City/State/[facility] Co de Phone Number [facility] [address] [place] [phone], [facility] [phone] * (ABNORMAL) CBC W AUTO DIFFERENTIAL (09/03/2024 2:10 AM PRODUCT CRAFTSMAN) Only the most recent of4 resultswithin the time period is included. [facility] WBC 9.3 4.0 - 10.7 x10E9/L 09/03/2024 3:08 AM [facility] RBC Count 3.38(L) 3.90 - 5.20 x10E12/L 09/03/2024 3:08 AM [facility] Hemoglobin 9.0(L) 11.9 - 15.8 g/dL 09/03/2024 3:08 AM [facility] Hematocrit 28.4(L) 34.8 - 46.1 % 09/03/2024 3:08 AM [facility] MCV 84.0 80.0 - 98.0 fL 09/03/2024 3:08 AM [facility] MCH 26.6(L) 26.7 - 33.6 pg 09/03/2024 3:08 AM [facility] MCHC 31.7 31.7 - 36.3 g/dL 09/03/2024 3:08 AM [facility] RDW-CV 15.0(H) 11.3 - 14.8 % 09/03/2024 3:08 AM [facility] Platelet Count 356 150 - 420 x10E9/L 09/03/2024 3:08 AM [facility] MPV 9.6 7.8 - 11.4 fL 09/03/2024 3:08 AM [facility] Neutrophil % 56.8 41.0 - 74.0 % 09/03/2024 3:08 AM [facility] Lymphocyte % 28.1 17.0 - 47.0 % 09/03/2024 3:08 AM [facility] Monocyte % 11.5(H) 3.0 - 11.0 % 09/03/2024 3:08 AM [facility] Eosinophil % 2.8 0.0 - 7.0 % 09/03/2024 3:08 AM [facility] Basophil % 0.4 0.0 - 1.6 % 09/03/2024 3:08 AM [facility] Immature Granulocytes % 0.4 0.0 - 1.0 % 09/03/2024 3:08 AM [facility] Neutrophil Absolute 5.27 1.60 - 7.50 x10E9/L 09/03/2024 3:08 AM [facility] Lymphocyte Absolute 2.61 1.00 - 4.40 x10E9/L 09/03/2024 3:08 AM [facility] Monocyte Absolute 1.07(H) 0.15 - 1.00 x10E9/L 09/03/2024 3:08 AM [facility] Eosinophil Absolute 0.26 0.00 - 0.60 x10E9/L 09/03/2024 3:08 AM [facility] Basophil Absolute 0.04 0.00 - 0.13 x10E9/L 09/03/2024 3:08 AM [facility] Blood BLOOD SPECIMEN / Unknown Lab Venipuncture / Unknown 09/03/2024 2:10 AM PR[facility]FTSMAN 09/03/2024 3:02 AM PRODUCT C[employer]FTSMAN Reina aM MD LAB - HEMATOLOGY ORD ERABLES [facility] [address] [place] [address], [facility] [phone] * (ABNORMAL) BASIC METABOLIC PANEL (CALCIUM TOTAL) (09/03/2024 2:10 AM PRODUCT [facility]FTSMAN) Only the most recent of3 resultswithin the time period is included. BUN 26 7 - 26 mg/dL 09/03/2024 3:29 AM [facility] Creatinine 0.87 0.56 - 0.96 mg/dL 09/03/2024 3:29 AM [facility] Sodium 139 136 - 145 mmol/L 09/03/2024 3:29 AM [facility] Potassium 4.6(H) 3.5 - 4.5 mmol/L 09/03/2024 3:29 AM [facility] Chloride 109(H) 98 - 107 mmol/L 09/03/2024 3:29 AM [facility] CO2 22 22 - 29 mmol/L 09/03/2024 3:29 AM [facility] Glucose 125(H) 70 - 99 mg/dL 09/03/2024 3:29 AM [facility] Calcium 8.9 8.4 - 10.2 mg/dL 09/03/2024 3:29 AM [facility] Anion Gap 8 6 - 16 09/03/2024 3:29 AM [facility] BUN/Creatinine Ratio 30(H) 7 - 23 09/03/2024 3:29 AM [facility] Osmolality Calculated 294 275 - 295 mOsm/kg 09/03/2024 3:29 AM [facility] eGFR by CKD-EPI 69(L) >=90 mL/min/1.7 3 m2 09/03/2024 3:29 AM [facility] Blood BLOOD SPECIMEN / Unknown Lab Venipuncture / Unknown 09/03/2024 2:10 AM PR[facility]FTSMAN 09/03/2024 3:02 AM PR[employer] [facility]FTSMAN Reina Ma MD LAB - CHEMISTRY JONG DUNHAM Performing Organization Address City/[facility]/ZIP Co de Phone Number [address] [address], [place] [phone] * PHOSPHORUS BLOOD (09/03/2024 2:10 AM PRODUCT CRAFTSMAN) Only the most recent of3 resultswithin the time period is included. Phosphorus 3.1 2.9 - 5.1 mg/dL 09/03/2024 3:29 AM PR[facility]FTSM[facility] Blood BLOOD SPECIMEN / Unknown Lab Venipuncture / Unknown 09/03/2024 2:10 AM PRODUCT C[employer]FTSMAN 09/03/2024 3:02 AM PRODUCT CRAFTSMAN Reina Ma MD LAB - CHEMISTRY JONG DUNHAM Performing Organization Address [facility] Co de Phone Number [address] [address], [place] [phone] * MAGNESIUM BLOOD (09/03/2024 2:10 AM PRODUCT CRAFTSMAN) Only the most recent of3 resultswithin the time period is included. Magnesium 2.2 1.6 - 2.6 mg/dL 09/03/2024 3:29 AM PR[facility] C[employer]FTSM[facility] Blood BLOOD SPECIMEN / Unknown Lab Venipuncture / Unknown 09/03/2024 2:10 AM PRODUCT [employer]FTSMAN 09/03/2024 3:02 AM PR[employer]RAFTSMAN Reina Ma MD LAB - CHEMISTRY JONG DUNHAM Performing Organization Address [facility]/ZIP Co de Phone Number [address] [address], [place] [phone] * MRI Brain Wo Contrast (09/02/2024 4:44 PM PRODUCT CRAFTSMAN) Anatomical Region Laterality Modality Head Magnetic Resonan ce 09/02/2024 4:25 PM [facility]SMAN Impressions 09/04/2024 12:47 PM [facility] [facility]FTSMAN IMPRESSION: 1. No evidence of acute infarct. 2. Redemonstration of a small evolving intraparenchymal hemorrhage in the right frontal lobe. A small focus of chronic microhemorrhage in the right mesial temporal lobe. 3. Diffuse cerebral volume loss. Extensive periventricular, subcortical, and pontine white matter FLAIR hyperintensities likely represent sequelae of chronic small vessel ischemic disease. Multiple small chronic lacunar infarcts in the basal ganglia and thalami. Preliminary findings were discussed in detail with the patient's care provider, Dr. Brian Randall by Dr. Roberto Eden via telephone at 09/02/2024 5:13 PM with readback comprehension and verification. Report dictated by Roberto Eden MD, PhD (residential therapist). I, Loren Marin MD have personally reviewed and interpreted this examination/study. 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 CONTRAST: COMPARISON: Noncontrast head CT dated 08/31/2024. FINDINGS: No evidence of acute cerebral infarction is seen. There is an area of susceptibility artifact in the right frontal lobe, corresponding to acute intraparenchymal hemorrhages seen on the previous head CT. A small punctate chronic microhemorrhage is noted in the right anterior mesial temporal lobe. There is moderate cerebral volume loss with associated ex vacuo ventricular dilatation. No mass effect or midline shift is seen. Extensive periventricular, subcortical, and pontine white matter FLAIR hyperintensities likely represent sequelae of chronic small vessel ischemic disease. Multiple small chronic lacunar infarcts in the basal ganglia and thalami. Diffuse thinning of the corpus callosum. The posterior fossa, brainstem, and craniocervical junction appear normal. Other than bilateral cataract extractions and chronic right sphenoid sinus disease, the visualized portions of the orbits, paranasal sinuses, and mastoids appear normal. Normal flow voids are demonstrated in the carotid arteries and basilar artery. The calvarium and visualized cervical spine appear normal. 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 CONTRAST: COMPARISON: Noncontrast head CT dated 08/31/2024. FINDINGS: No evidence of acute cerebral infarction is seen. There is an area of susceptibility artifact in the right frontal lobe, corresponding toacute intraparenchymal hemorrhages seen on the previous head CT. A smallpunctate chronic microhemorrhage is noted in the right anterior mesial temporal lobe. There is moderate cerebral volume loss with associated ex vacuo ventricular dilatation. No mass effect or midline shift is seen.Extensive periventricular, subcortical, and pontine white matter FLAIR hyperintensities likely represent sequelae of chronic small vesselischemic disease. Multiple small chronic lacunar infarcts in the basal gangliaand thalami. Diffuse thinning of the corpus callosum. The posterior fossa, brainstem, and craniocervical junction appear normal. Other than bilateral cataract extractions and chronic right sphenoidsinus disease, the visualized portions of the orbits, paranasal sinuses, and mastoids appear normal. Normal flow voids are demonstrated in thecarotid arteries and basilar artery. The calvarium and visualized cervical spine appear normal. IMPRESSION: 1. No evidence of acute infarct. 2. Redemonstration of a small evolving intraparenchymal hemorrhage inthe right frontal lobe. A small focus of chronic microhemorrhage in theright mesial temporal lobe. 3. Diffuse cerebral volume loss. Extensive periventricular, subcortical, and pontine white matter FLAIR hyperintensities likely representsequelae of chronic small vessel ischemic disease. Multiple small chronic lacunar infarcts in the basal ganglia and thalami. Preliminary findings were discussed in detail with the patient's care provider, Dr. Brian Randall by Dr. Roberto Eden via telephone at 09/02/2024 5:13 PM with readback comprehension and verification. Report dictated by Roberto Eden MD, PhD (residential therapist). I, Loren Marin MD have personally reviewed and interpreted this examination/study. > Interpreting Provider: Loren Marin MD on 09/04/2024 12:47 PM Reina Ma MD MR ORDERABLES * VAS Bilateral Venous Duplex Le (09/02/2024 11:36 AM PR[facility]FTSMAN) Anatomical Region Laterality Modality Lower Extremity Ultrasound 09/02/2024 8:59 AM PR[facility]FTSMAN Narrative Procedure Note Bon Garcia MD - 09/02/2024 Reina Ma MD VASCULAR LAB ORDERAB LES * TROPONIN-I HIGH SENSITIVE BASELINE + 1HR (08/31/2024 4:12 PM PRODUCT CRAFTSMAN) Pathologist [facility] Troponin I High Sensitive <3 <=14 ng/L 08/31/2024 5:08 PM PR[facility]FT[facility] Blood BLOOD SPECIMEN / Unknown Lab Venipuncture / Unknown 08/31/2024 4:12 PM PR[facility] C[employer]FTSMAN 08/31/2024 4:32 PM PR[employer]FTSMAN Ayan Livingston MD LAB - CHEMISTRY ORDE ROLY [facility] [address] [place] [address], [place] [phone] * BLOOD TYPE VERIFICATION (08/31/2024 4:12 PM PRODUCT CRAFTSMAN) ABO Rh A POS 08/31/2024 5:1 3 PM [facility] Blood Bank BLOOD SPECIMEN / Unknown Lab Venipuncture / Unknown 08/31/2024 4:12 PM PR[employer] C[employer]FTSMAN 08/31/2024 4:40 PM [employer]FTSMAN Ayan Livingston MD LAB - BLOOD BANK ORD ERABLES [facility] [address] [place] [address], [place] [phone] * (ABNORMAL) HEMOGLOBIN A1C (08/31/2024 4:12 PM [facility] [facility]SM[facility]) Hemoglobin A1c 6.0(H) <=5.6 % 09/01/2024 8:55 AM [facility] Estimated Average Glucose 126 mg/dL 09/01/2024 8:55 AM [facility] Comment: HbA1c Interpretation: Normal : < 5.7% Pre-diabetes: 5.7-6.4% Diabetes: Equal to or greater than 6.5% Test results diagnostic of diabetes should be repeated for confirmation. Treatment target values recommended by ADA and other clinical organizations should be used to evaluate metabolic control in patients. Reference: [place] [employer], Standards of Care in Diabetes -2020 In patients 70 years and older consider HbA1c target range of 7.0-7.5% (Reference: Davon Goldstein et al. JAMDA. 2012) The Sebia assay for the measurement of HbA1c is a National Glycohemoglobin Standardization Program (NGSP) certified method. Blood BLOOD SPECIMEN / Unknown Lab Venipuncture / Unknown 08/31/2024 4:12 PM PRODUCT CRAFTSMAN 08/31/2024 4:33 PM PR[employer]AN Ayan Livingston MD LAB - CHEMISTRY JONG DUNHAM [facility] Organization Address City/State/ZIP Co de Phone Number [address] [address], [facility] [phone] * (ABNORMAL) URINALYSIS REFLEX TO MICROSCOPIC NO CULTURE (08/31/2024 2:54 PM PRODUCT C[employer]FTSMAN) Color UA Yellow Straw, Yellow 08/31/2024 3:23 PM [facility] Clarity UA Clear Clear 08/31/2024 3:23 PM [facility] Specific [place] UA 1.029 1.005 - 1.030 08/31/2024 3:23 PM [facility] pH UA 5.0 5.0 - 8.0 pH 08/31/2024 3:23 PM [facility] Protein UA Negative Negative 08/31/2024 3:23 PM [facility] Glucose UA Negative Negative 08/31/2024 3:23 PM [facility] Ketone UA Negative Negative 08/31/2024 3:23 PM PRODUCT [employer] Bilirubin UA Negative Negative 08/31/2024 3:23 PM [facility] Blood UA Negative Negative 08/31/2024 3:23 PM [facility] Nitrite UA Negative Negative 08/31/2024 3:23 PM [facility] Leukocyte Esterase Negative Negative 08/31/2024 3:23 PM [facility] Urobilinogen UA Negative Negative mg/dL 08/31/2024 3:23 PM [facility] RBC UA 3-5 None Seen, 0-2, 3-5 /HPF 08/31/2024 3:23 PM [facility] WBC UA 6-10(A) None Seen, 0-5 /HPF 08/31/2024 3:23 PM [facility] Squamous Epithelial Cells UA 0-2 None Seen, 0-2, 3-5 /HPF 08/31/2024 3:23 PM [facility] Urine URINE SPECIMEN OBTAINED BY SINGLE CATHETERIZATION OF URINARY BLADDER / Unknown Collection / Unknown 08/31/2024 2:54 PM PRODUCT C[employer]FTSMAN 08/31/2024 3:00 PM PRODUCT C[employer]FTSMAN Narrative [facility] - 08/31/2024 3:23 PM PRODUCT C[employer]FTSMAN Reina Ma MD LAB - URINALYSIS ORD ERABLES [facility] [address] [place] [address], [place] [phone] * CULTURE URINE (08/31/2024 2:54 PM PRODUCT CRAFTSMAN) Culture Urine No growth (<100 CFU/mL) KRISTIN 09/01/2024 9:37 PM PRODUCT CRAFTSMAN [facility] MICROBIOLOGY Urine URINE SPECIMEN OBTAINED BY SINGLE CATHETERIZATION OF URINARY BLADDER / Unknown Collection / Unknown 08/31/2024 2:54 PM PRODUCT C[employer]FTSMAN 08/31/2024 3:00 PM PR[employer] C[employer]FTSMAN Reina Ma MD LAB - MICROBIOLOGY O RDERABLES [facility] MICROBIOLOG[facility] [address] [place] [address], [facility] [phone] * URINE DRUG SCREEN IMMUNOASSAY (08/31/2024 2:54 PM PRODUCT C[employer]FTSMAN) Amphetamines Screen Urine Negative Negative: < 1000 ng/mL 08/31/2024 3:25 PM [facility] Barbiturates Screen Urine Negative Negative: < 200 ng/mL 08/31/2024 3:25 PM [facility] Benzodiazepine Screen Urine Negative Negative: < 200 ng/mL 08/31/2024 3:25 PM [facility] Opiates Urine Negative Negative: < 300 ng/mL 08/31/2024 3:25 PM [facility] Cocaine Metabolites Urine Negative Negative: < 300 ng/mL 08/31/2024 3:25 PM [facility] Phencyclidine Screen Urine Negative Negative: < 25 ng/ml 08/31/2024 3:25 PM [facility] Cannabinoids Screen Urine Negative Negative: <50 ng/mL 08/31/2024 3:25 PM [facility] Methadone Screen Urine Negative Negative: < 300 ng/mL 08/31/2024 3:25 PM [facility] Fentanyl Screen Urine Negative Negative: <1.5 ng/mL 08/31/2024 3:25 PM [facility] Urine URINE / Unknown Collection / Unknown 08/31/2024 2:54 PM PRODUCT [employer]SMAN 08/31/2024 3:00 PM [facility] - 08/31/2024 3:25 PM PRODUCT CRAFTSMAN The Urine Toxicology Screening Panel does not screen for Propoxyphene, Meprobamate, Carisoprodol, Trazodone, annd-www-lpmgzal medications and/or volatiles (Acetone, Isopropanol, Methanol or Ethylene Glycol). Ethanol, Salicylate, Acetaminophen, Tricyclic Antidepressants and several therapeutic drugs may be individually assayed in serum or plasma specimen. Toxicology testing by the [facility] is an aid to medical diagnosis and treatment of patients. No documented chain of custody was maintained. Results are intended to be used for clinical purposes only. Reina Ma MD LAB - URINE CHEMISTR Y ORDERABLES [facility] [address] [place] [address], [facility] [phone] * EKG 12-LEAD (08/31/2024 11:06 AM PRODUCT CRAFTSMAN) [facility] Ventricular Rate 76 BPM [facility] MUSE Atrial Rate 76 BPM [facility] MUSE P-R Interval 384 ms [facility] MUSE QRS Duration ms 160 ms [facility] MUSE Q-T Interval ms 432 ms [facility] MUSE QTC Calculation (Bezet) 486 ms [facility] MUSE Calculated R [employer] -92 degrees [facility] MUSE Calculated T [employer] 43 degrees [facility] MUSE Interpretation EKG SINUS RHYTHM WITH 1ST DEGREE A-V BLOCK RIGHT BUNDLE BRANCH BLOCK ABNORMAL ECG NO PREVIOUS ECGS AVAILABLE Confirmed by KOLE GOODEN MD ([id number]) on 08/31/2024 5:06:06 PM [facility] MUSE 08/31/2024 11:0 6 AM PR[employer]SMAN 08/31/2024 5:06 PM [facility] Ayan Livingston MD ECG ORDERABLES Performing Organization Address City/[facility]/ZIP Co de Phone Number [facility] * (ABNORMAL) PTT [facility] (08/31/2024 11:02 AM PRODUCT CRAFTSMAN) [facility] APTT 40.4(H) 23.0 - 38.4 Seconds 08/31/2024 11:30 AM PR[employer]FTSM[employer] [facility]ORATORY [facility] Comment:Suggested therapeuti c range for full dose I.V. unfractionated heparin therapy for venous thromboembolism is 71 to 109 seconds. Blood BLOOD SPECIMEN / Unknown Venipuncture / Unknown 08/31/2024 11:02 AM PR[employer]SMAN 08/31/2024 11:10 AM PR[employer] Reina Ma MD LAB - COAGULATION OR DERABLES [facility] [address] [place] [address], [facility] [phone] * (ABNORMAL) PT-INR [facility] (08/31/2024 11:02 AM PRODUCT CRAFTSMAN) [facility] PT 18.3(H) 12.1 - 14.8 Seconds 08/31/2024 11:30 AM [facility] INR 1.6 See Comment 08/31/2024 11:30 AM [facility] Comment:The suggested therap eutic range for standard coumadin (warfarin) therapy is an INR of 2.0-3.0. For high-risk patients (Mechanical Mitral Valve Prosthesis, etc.), the suggested prophylactic therapeutic range is an INR of 2.5-3.5. Blood BLOOD SPECIMEN / Unknown Venipuncture / Unknown 08/31/2024 11:02 AM PR[employer]SMAN 08/31/2024 11:10 AM [employer] Ayan Livingston MD LAB - COAGULATION OR DERABLES Performing Organization Address City/[facility]/ZIP Co de Phone Number [address] [address], [facility] [phone] * TYPE + SCREEN PANEL (08/31/2024 11:02 AM PRODUCT CRAFTSMAN) Pathologist [facility] Antibody Screen NEG 11:[address] [facility]OD [facility] LAB ABO Rh A POS 08/31/2024 11:[address] [facility] LAB Blood Bank BLOOD SPECIMEN / Unknown Venipuncture / Unknown 08/31/2024 11:02 AM PRODUCT C[employer]FTSMAN 08/31/2024 11:08 AM PR[employer] Ayan Livingston MD LAB - BLOOD BANK ORD ERABLES Performing Organization Address [facility]/ZIP Co de Phone Number [facility] BLOOD [facility] LAB [address] [place] [address], [facility] [phone] * (ABNORMAL) COMPREHENSIVE METABOLIC PANEL (08/31/2024 11:02 AM PRODUCT C[employer]FTSMAN) BUN 28(H) 7 - 26 mg/dL 08/31/2024 11:[address] [facility] Creatinine 0.79 0.56 - 0.96 mg/dL 08/31/2024 11:36 AM [facility] Sodium 140 136 - 145 mmol/L 08/31/2024 11:36 AM [facility] Potassium 4.2 3.5 - 4.5 mmol/L 08/31/2024 11:36 AM [facility] Chloride 113(H) 98 - 107 mmol/L 08/31/2024 11:36 AM [facility] CO2 25 22 - 29 mmol/L 08/31/2024 11:36 AM [facility] Glucose 87 70 - 99 mg/dL 08/31/2024 11:36 AM [facility] Calcium 9.5 8.4 - 10.2 mg/dL 08/31/2024 11:36 AM [facility] Protein Total 6.4 6.0 - 8.3 g/dL 08/31/2024 11:36 AM [facility] Albumin 3.4 3.4 - 5.0 g/dL 08/31/2024 11:36 AM [facility] Bilirubin Total 0.2 0.2 - 1.2 mg/dL 08/31/2024 11:36 AM [facility] Alkaline Phosphatase 103 40 - 150 U/L 08/31/2024 11:36 AM [facility] ALT 23 5 - 55 U/L 08/31/2024 11:36 AM [facility] AST 22 5 - 34 U/L 08/31/2024 11:36 AM [facility] Anion Gap 2(L) 6 - 16 08/31/2024 11:36 AM [facility] BUN/Creatinine Ratio 35(H) 7 - 23 08/31/2024 11:36 AM [facility] Osmolality Calculated 295 275 - 295 mOsm/kg 08/31/2024 11:36 AM [facility] Albumin/Globulin Ratio 1.1 1.1 - 2.3 08/31/2024 11:36 AM [facility] eGFR by CKD-EPI 77(L) >=90 mL/min/1.7 3 m2 08/31/2024 11:36 AM [facility] Blood BLOOD SPECIMEN / Unknown Venipuncture / Unknown 08/31/2024 11:02 AM [facility] 08/31/2024 11:10 AM [facility] Ayan Livingston MD LAB - CHEMISTRY JONG DUNHAM [facility] Organization Address City/State/ZIP Co de Phone Number [facility] [address] [place] [address], [facility] [phone] * CT ANGIO BRAIN NECK STROKE (08/31/2024 11:00 AM PRODUCT CRAFTSMAN) Anatomical Region Laterality Modality Head Computed Tomogra phy 08/31/2024 11:2 3 AM PRODUCT CRAFTSMAN Impressions 08/31/2024 12:09 PM PRODUCT CRAFTSMAN IMPRESSION: 1. No large arterial occlusions or significant stenoses identified in the head or neck. 2. Multiple bilateral inferior lobar thyroid nodules measuring up to 1 cm. This preliminary report was dictated by Demar Elkins MD (DR/IR Resident). I, Loren Marin MD have personally reviewed and interpreted this examination/study. > Interpreting Provider: Loren Marin MD on 08/31/2024 12:09 PM Narrative 08/31/2024 12:09 PM PRODUCT C[employer]FTSMAN PROCEDURE: CT ANGIO BRAIN NECK STROKE, DATE/TIME OF EXAM: 08/31/2024 11:00 AM, LOCATION [facility] INDICATION: Code Stroke ADDITIONAL CLINICAL INFORMATION: Ordering Provider Reason For Exam: Code stroke Technologist Note: Additional: Code stroke EXAMINATION: 1. Computed tomographic (CT) angiography of the head without and with contrast 2. CT angiography of the neck with contrast TECHNIQUE: CT of the head was performed without contrast according to standard protocol. Then CT angiography of the head and neck was obtained after the uneventful administration of intravenous contrast. Three dimensional postprocessing was performed by the technologist and sent to the workstation for review. CONTRAST: 75 mL Isovue-370 COMPARISON: No prior study is available for comparison at the time of this dictation. FINDINGS: Non-angiographic findings: Head: Please refer to the report of a concurrent noncontrasted head CT for detailed intracranial findings. Neck: There is significant streak artifact noted from left approach contrast bolus. There are multiple bilateral inferior lobe thyroid nodules measuring up to 1 cm. Mild multilevel degenerative disc and joint disease in the cervical spine. Angiographic findings: Neck: There is atherosclerotic disease of the aortic arch. The left vertebral artery arises directly from the aortic arch. There is scattered atherosclerotic calcification of the innominate and subclavian arteries. There is atherosclerotic disease in the right carotid bifurcation and origin of the right internal carotid artery with less than 50 percent focal stenosis. The right common and internal carotid arteries otherwise appear patent. There is atherosclerotic disease in the left carotid bifurcation and origin of the left internal carotid artery with less than 50 percent focal stenosis. The left common and internal carotid arteries otherwise appear patent. Other than mild focal stenosis at their origins due to atherosclerotic disease, the cervical vertebral arteries are patent. Head: There is atherosclerotic disease involving the distal internal carotid arteries without significant focal stenosis. The anterior cerebral arteries are patent. The middle cerebral arteries are patent. The posterior cerebral arteries are patent with origin of the right posterior cerebral artery. The distal vertebral arteries are patent. The basilar artery is patent patent. No aneurysms, spot sign, or signs of a high flow vascular malformation are identified. Procedure Note Loren Marin MD - 08/31/2024 PROCEDURE: CT ANGIO BRAIN NECK STROKE, DATE/TIME OF EXAM: 08/31/2024 11:00 AM, LOCATION [facility] INDICATION: Code Stroke ADDITIONAL CLINICAL INFORMATION: Ordering Provider Reason For Exam: Code stroke Technologist Note: Additional: Code stroke EXAMINATION: 1. Computed tomographic (CT) angiography of the head without and with contrast 2. CT angiography of the neck with contrast TECHNIQUE: CT of the head was performed without contrast according to standard protocol. Then CT angiography of the head and neck was obtained after the uneventful administration of intravenous contrast. Three dimensional postprocessing was performed by the technologist and sent to the workstation for review. CONTRAST: 75 mL Isovue-370 COMPARISON: No prior study is available for comparison at the time ofthis dictation. FINDINGS: Non-angiographic findings: Head: Please refer to the report of a concurrent noncontrasted head CT for detailed intracranial findings. Neck: There is significant streak artifact noted from left approach contrast bolus. There are multiple bilateral inferior lobe thyroid nodules measuring upto 1 cm. Mild multilevel degenerative disc and joint disease in thecervical spine. Angiographic findings: Neck: There is atherosclerotic disease of the aortic arch. The left vertebral artery arises directly from the aortic arch. There is scattered atherosclerotic calcification of the innominate and subclavian arteries. There is atherosclerotic disease in the right carotid bifurcation and origin of the right internal carotid artery with less than 50 percentfocal stenosis. The right common and internal carotid arteries otherwiseappear patent. There is atherosclerotic disease in the left carotid bifurcation and origin of the left internal carotid artery with less than 50 percent focal stenosis. The left common and internal carotid arteries otherwise appear patent. Other than mild focal stenosis at their origins due to atherosclerotic disease, the cervical vertebral arteries are patent. Head: There is atherosclerotic disease involving the distal internal carotid arteries without significant focal stenosis. The anterior cerebralarteries are patent. The middle cerebral arteries are patent. The posterior cerebral arteries are patent with origin of the right posterior cerebral artery. The distal vertebral arteries are patent. The basilar artery is patent patent. No aneurysms, spot sign, or signs of a high flow vascular malformationare identified. IMPRESSION: 1. No large arterial occlusions or significant stenoses identified inthe head or neck. 2. Multiple bilateral inferior lobar thyroid nodules measuring up to 1cm. This preliminary report was dictated by Demar Elkins MD (DR/IR Resident). I, Loren Marin MD have personally reviewed and interpreted this examination/study. > Interpreting Provider: Loren Marin MD on 08/31/2024 12:09 PM Ayan Livingston MD CT ORDERABLES * INR WHOLE BLOOD - POINT OF CARE (IP) STROKE (08/31/2024 10:53 AM PRODUCT CRAFTSMAN) INR 1.2 0.9 - 1.2 08/31/2024 10:54 AM [facility] Device [id number] 08/31/2024 10:54 AM [facility] [employer] Consult[employer] ID [id number] 08/31/2024 10:54 AM [facility] Blood BLOOD SPECIMEN / Unknown 08/31/2024 10:53 AM PRODUCT C[employer]FTSMAN 08/31/2024 10:54 AM PRODUCT CRAFTSMAN Provider Unknown LAB - POINT OF CARE ORDERABLES Performing Organization Address City/State/[facility] Co de Phone Number [facility] [address] [place] [address], [facility] [phone] * CREATININE - POCT INTERFACED (08/31/2024 10:53 AM PRODUCT CRAFTSMAN) Creatinine POCT 0.56 0.30 - 1.30 mg/dL 08/31/2024 11:00 AM [facility] eGFR >90 >=90 mL/min/1.7 3 m2 08/31/2024 11:00 AM [facility] Blood BLOOD SPECIMEN / Unknown 08/31/2024 10:53 AM PR[employer]SMAN 08/31/2024 11:00 AM PRODUCT C[employer]FTSMAN Provider Unknown LAB - POINT OF CARE ORDERABLES [facility] [address] [place] [address], [facility] [phone] * CT BRAIN - Stroke (08/31/2024 10:50 AM PRODUCT CRAFTSMAN) Anatomical Region Laterality Modality Head Computed Tomogra phy 08/31/2024 11:0 4 AM PRODUCT C[employer]FTSMAN Impressions 08/31/2024 11:09 AM PRODUCT C[employer]FTSMAN IMPRESSION: 1. A small amount of hyperattenuation in the right frontal lobe may represent small volume acute intraparenchymal hemorrhage versus mineralization. 2. Chronic small vessel ischemic disease of the brain with cerebral volume loss. These findings were discussed in detail with the patient's care provider, Dr. Rose by Dr. Marin via telephone at 11:08 AM on 08/31/2024 with readback comprehension and verification. > Interpreting Provider: Loren Marin MD on 08/31/2024 11:09 AM Narrative 08/31/2024 11:09 AM PR[employer]SMAN PROCEDURE: CT BRAIN STROKE, DATE/TIME OF EXAM: 08/31/2024 10:50 AM, LOCATION [facility] INDICATION: Code Stroke ADDITIONAL CLINICAL INFORMATION: Ordering Provider Reason For Exam: Technologist Note: Additional: TECHNIQUE: CT of the head was performed without contrast according to standard protocol. CONTRAST: COMPARISON: No prior study is available for comparison at the time of this dictation. FINDINGS: A small amount of hyperattenuation in the right frontal lobe may represent small volume acute intraparenchymal hemorrhage versus mineralization. There is moderate cerebral volume loss with associated ex vacuo ventricular dilatation. The basal cisterns are patent. No mass effect or midline shift is seen. The delaney-white matter differentiation is normal. Extensive periventricular white matter hypoattenuation is nonspecific, but can be seen in the setting of chronic small vessel ischemic disease. There is atherosclerotic calcification of the carotid siphons. Other than mild paranasal sinus disease, the visualized portions of the orbits, paranasal sinuses, and mastoids appear normal. No acute calvarial fracture is identified. Procedure Note Loren Marin MD - 08/31/2024 PROCEDURE: CT BRAIN STROKE, DATE/TIME OF EXAM: 08/31/2024 10:50 AM, LOCATION [facility] INDICATION: Code Stroke ADDITIONAL CLINICAL INFORMATION: Ordering Provider Reason For Exam: Technologist Note: Additional: TECHNIQUE: CT of the head was performed without contrast according to standard protocol. CONTRAST: COMPARISON: No prior study is available for comparison at the time ofthis dictation. FINDINGS: A small amount of hyperattenuation in the right frontal lobe mayrepresent small volume acute intraparenchymal hemorrhage versus mineralization.There is moderate cerebral volume loss with associated ex vacuo ventricular dilatation. The basal cisterns are patent. No mass effect or midlineshift is seen. The delaney-white matter differentiation is normal. Extensive periventricular white matter hypoattenuation is nonspecific, but can be seen in the setting of chronic small vessel ischemic disease. There is atherosclerotic calcification of the carotid siphons. Other than mild paranasal sinus disease, the visualized portions of the orbits, paranasal sinuses, and mastoids appear normal. No acute calvarial fracture is identified. IMPRESSION: 1. A small amount of hyperattenuation in the right frontal lobe may represent small volume acute intraparenchymal hemorrhage versus mineralization. 2. Chronic small vessel ischemic disease of the brain with cerebralvolume loss. These findings were discussed in detail with the patient's careprovider, Dr. Rose by Dr. Marin via telephone at 11:08 AM on 08/31/2024 with readback comprehension and verification. > Interpreting Provider: Loren Marin MD on 08/31/2024 11:09 AM Ayan Livingston MD CT ORDERABLES from Last 3 Months Advance Directives * Full Code (Latest Code Status on File) Date Activated Date Inactivated Comments 08/31/2024 11:06 AM 09/03/2024 3:17 PM Care Teams [employer] Relationship Specialty Start Date End Date Provider, No Pcp PCP - General 08/30/24
--- OUTSIDE RECORDS SUMMARY | 2024-11-03 12:21 | XMS_ITS | Referral Summary ---
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 This disclosure is being madepursuant to the Care Everywhere program and may not contain all information available regarding this patient. 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 Hospital Encounter [facility] 5N ACUTE [address] [place] [address] Austin Stapleton MD Esechie, Aimalohi, MD Linares, Guillermo, MD Neurology Discharge Disposition: Home or Self Care 08/31/2024 Travel from Last 3 Months Allergies Active Allergy Reactions Criticality Noted Date [...] cerebral hemisp here 08/31/2024 Generalized weakness 08/31/2024 Social History Tobacco Use Types Packs/Day Years [...] Recorded Patient Health Questionnaire-2 Score 0 09/03/2024 [facility] - [...] any time in the past 12 m [facility], were you homeless or living in a half-way (including now)? No 08/31/2024 Sex and Gender Information Value Date Recorded Sex Assigned at Not on file Gender Identity Not on file Sexual Orientation Not on file Last Filed Vital Signs Vital Sign Reading Time Taken Comments Blood Pressure 141/70 09/03/2024 8:04 AM FIRST [facility] Pulse 105 09/03/2024 8:04 AM FIRST [facility] Temperature 36.6 C (97.9 F) 09/03/2024 8:04 AM FIRST [facility] Respiratory Rate 18 09/03/2024 8:04 AM FIRST [facility]HER Oxygen Saturation 100% 09/03/2024 8:04 AM FIRST [facility] Inhaled Oxygen Concentration - - Weight 56.7 kg (125 lb) 09/01/2024 8:07 PM FIRST CR[facility]HER Height 162.6 cm (5' 4 ) 09/01/2024 8:07 PM FIRST [facility]HER Body Mass Index 21.46 09/01/2024 8:07 PM [facility]HER Functional Status Functional Status Response Date of Assess ment Is person deaf or have serious hearing difficult y? Yes 08/31/2024 Is person blind or have serious difficulty seein g? No 08/31/2024 Does person have serious dif ficulty walking/climbing stairs? Yes 08/31/2024 Does person have difficulty dressing/bathing? Ye s 08/31/2024 Does person have difficulty doing errands alone? Yes 08/31/2024 Cognitive Status Response Date of Assessm ent Does person have difficulty concentrating/remembering/making decisions? 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) BASIC METABOLIC PANEL (CALCIUM TOTAL) Routine 09/03/2024 2:10 AM [facility] 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) GLUCOSE - POINT OF CARE Routine 09/02/2024 11:25 PM [facility] GLUCOSE - POINT OF CARE Routine 09/02/2024 9:19 PM FIRST [facility] MRI BRAIN WO CONTRAST Routine 09/02/2024 4:44 PM [facility] 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) GLUCOSE - POINT OF CARE Routine 09/02/2024 11:58 AM FIRST CR[facility]HER VAS BILATERAL VENOUS DUPLEX LE Routine 09/02/2024 11:36 AM FIRST [facility] Acute deep vein thrombosis (DVT) of distal vein of left lower extremity (HCC) GLUCOSE - POINT OF CARE Routine 09/02/2024 3:55 AM FIRST CR[facility]HER CBC W AUTO DIFFERENTIAL Routine 09/02/2024 1:56 AM [facility] 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) PHOSPHORUS BLOOD Routine 09/02/2024 1:55 AM [facility] 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) MAGNESIUM BLOOD Routine 09/02/2024 1:55 AM [facility] 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) BASIC METABOLIC PANEL (CALCIUM TOTAL) Routine 09/02/2024 1:55 AM [facility] 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) GLUCOSE - POINT OF CARE Routine 09/01/2024 11:57 PM [facility]HER GLUCOSE - POINT OF CARE Routine 09/01/2024 8:07 PM [facility] GLUCOSE - POINT OF CARE Routine 09/01/2024 4:05 PM [facility] GLUCOSE - POINT OF CARE Routine 09/01/2024 11:21 AM [facility] GLUCOSE - POINT OF CARE Routine 09/01/2024 7:57 AM [facility] GLUCOSE - POINT OF CARE Routine 09/01/2024 3:52 AM [facility] PHOSPHORUS BLOOD Routine 09/01/2024 1:42 AM [facility] 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) MAGNESIUM BLOOD Routine 09/01/2024 1:42 AM [facility] 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) CBC W AUTO DIFFERENTIAL Routine 09/01/2024 1:42 AM [facility] 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) BASIC METABOLIC PANEL (CALCIUM TOTAL) Routine 09/01/2024 1:42 AM [facility] 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) GLUCOSE - POINT OF CARE Routine 09/01/2024 12:18 AM [facility] GLUCOSE - POINT OF CARE Routine 08/31/2024 9:27 PM [facility] GLUCOSE - POINT OF CARE Routine 08/31/2024 6:32 PM [facility] GLUCOSE - POINT OF CARE Routine 08/31/2024 5:44 PM [facility] BLOOD TYPE VERIFICATION STAT 08/31/2024 4:12 PM [facility] HEMOGLOBIN A1C Add on 08/31/2024 4:12 PM [facility] 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) TROPONIN-I HIGH SENSITIVE BASELINE + 1HR Add on 08/31/2024 4:12 PM [facility] 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) GLUCOSE - POINT OF CARE Routine 08/31/2024 3:01 PM [facility]HER URINALYSIS REFLEX TO MICROSCOPIC NO CULTURE STAT 08/31/2024 2:54 PM [facility] URINE DRUG SCREEN IMMUNOASSAY STAT 08/31/2024 2:54 PM [facility] 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) CULTURE URINE STAT 08/31/2024 2:54 PM FIRST [facility] EKG 12-LEAD STAT 08/31/2024 11:06 AM FIRST [facility] Generalized weakness TYPE + SCREEN PANEL STAT 08/31/2024 1 1:02 AM FIRST [facility]HER PTT [facility] Routine 08/31/2024 11:02 AM FIRST [facility] 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) PT-INR [facility] STAT 08/31/2024 11:02 AM [facility] COMPREHENSIVE METABOLIC PANEL STAT 08/31/2024 11:02 AM FIRST [facility] CBC W AUTO DIFFERENTIAL STAT 08/31/2024 11:[address] ANGIO BRAIN NECK STROKE STAT 08/31/2024 11:00 AM FIRST [facility] Generalized weakness CREATININE - POCT INTERFACED Routine 08/31/2024 10:53 AM FIRST CR[facility]HER INR WHOLE BLOOD - POINT OF CARE (IP) STROKE Routine 08/31/2024 10:[address] BRAIN STROKE STAT 08/31/2024 10:50 AM [facility] Generalized weakness GLUCOSE - POINT OF CARE Routine 08/31/2024 10:45 AM FIRST CRUSHER from Last 3 Months Results * (ABNORMAL) GLUCOSE - POINT OF CARE (09/03/2024 12:25 PM FIRST CRUSHER) Only the most recent of17 resultswithin the time period is included. Glucose WB/POC 168(H) 70 - 99 mg/dL 09/03/2024 2:56 PM [facility] Specimen Type Arterial 09/03/2024 2:56 PM [facility] Blood BLOOD SPECIMEN / Unknown 09/03/2024 12:25 PM [facility] 09/03/2024 2:56 PM [facility] Reina Ma MD LAB - POINT OF CARE ORDERABLES [facility] [address] [place] [address], [facility] [phone] * (ABNORMAL) CBC W AUTO DIFFERENTIAL (09/03/2024 2:10 AM FIRST [facility]HER) Only the most recent of4 resultswithin the time period is included. WBC 9.3 4.0 - 10.7 x10E9/L 09/03/2024 3:08 AM [facility] RBC Count 3.38(L) 3.90 - 5.20 x10E12/L 09/03/2024 3:08 AM [facility] Hemoglobin 9.0(L) 11.9 - 15.8 g/dL 09/03/2024 3:08 AM [facility] Hematocrit 28.4(L) 34.8 - 46.1 % 09/03/2024 3:08 AM [facility] MCV 84.0 80.0 - 98.0 fL 09/03/2024 3:08 AM [facility] MCH 26.6(L) 26.7 - 33.6 pg 09/03/2024 3:08 AM [facility] MCHC 31.7 31.7 - 36.3 g/dL 09/03/2024 3:08 AM [facility] RDW-CV 15.0(H) 11.3 - 14.8 % 09/03/2024 3:08 AM [facility] Platelet Count 356 150 - 420 x10E9/L 09/03/2024 3:08 AM [facility] MPV 9.6 7.8 - 11.4 fL 09/03/2024 3:08 AM [facility] Neutrophil % 56.8 41.0 - 74.0 % 09/03/2024 3:08 AM [facility] Lymphocyte % 28.1 17.0 - 47.0 % 09/03/2024 3:08 AM [facility] Monocyte % 11.5(H) 3.0 - 11.0 % 09/03/2024 3:08 AM [facility] Eosinophil % 2.8 0.0 - 7.0 % 09/03/2024 3:08 AM [facility] Basophil % 0.4 0.0 - 1.6 % 09/03/2024 3:08 AM [facility] Immature Granulocytes % 0.4 0.0 - 1.0 % 09/03/2024 3:08 AM [facility] Neutrophil Absolute 5.27 1.60 - 7.50 x10E9/L 09/03/2024 3:08 AM [facility] Lymphocyte Absolute 2.61 1.00 - 4.40 x10E9/L 09/03/2024 3:08 AM [facility] Monocyte Absolute 1.07(H) 0.15 - 1.00 x10E9/L 09/03/2024 3:08 AM [facility] Eosinophil Absolute 0.26 0.00 - 0.60 x10E9/L 09/03/2024 3:08 AM [facility] Basophil Absolute 0.04 0.00 - 0.13 x10E9/L 09/03/2024 3:08 AM [facility] Blood BLOOD SPECIMEN / Unknown Lab Venipuncture / Unknown 09/03/2024 2:10 AM [facility] 09/03/2024 3:[address] [facility] Reina Ma MD LAB - HEMATOLOGY ORD ERABLES [facility] [address] [place] [address], [facility] [phone] * (ABNORMAL) BASIC METABOLIC PANEL (CALCIUM TOTAL) (09/03/2024 2:10 AM [facility]HER) Only the most recent of3 resultswithin the time period is included. BUN 26 7 - 26 mg/dL 09/03/2024 3:29 AM [facility] Creatinine 0.87 0.56 - 0.96 mg/dL 09/03/2024 3:29 AM [facility] Sodium 139 136 - 145 mmol/L 09/03/2024 3:29 AM [facility] Potassium 4.6(H) 3.5 - 4.5 mmol/L 09/03/2024 3:29 AM [facility] Chloride 109(H) 98 - 107 mmol/L 09/03/2024 3:29 AM [facility] CO2 22 22 - 29 mmol/L 09/03/2024 3:29 AM [facility] Glucose 125(H) 70 - 99 mg/dL 09/03/2024 3:29 AM [facility] Calcium 8.9 8.4 - 10.2 mg/dL 09/03/2024 3:29 AM [facility] Anion Gap 8 6 - 16 09/03/2024 3:29 AM [facility] BUN/Creatinine Ratio 30(H) 7 - 23 09/03/2024 3:29 AM [facility] Osmolality Calculated 294 275 - 295 mOsm/kg 09/03/2024 3:29 AM [facility] eGFR by CKD-EPI 69(L) >=90 mL/min/1.7 3 m2 09/03/2024 3:29 AM [facility] Blood BLOOD SPECIMEN / Unknown Lab Venipuncture / Unknown 09/03/2024 2:10 AM [facility] 09/03/2024 3:02 AM [facility] Reina Ma MD LAB - CHEMISTRY [facility] [address] [address], [place] [phone] * PHOSPHORUS BLOOD (09/03/2024 2:10 AM [facility]HER) Only the most recent of3 resultswithin the time period is included. Phosphorus 3.1 2.9 - 5.1 mg/dL 09/03/2024 3:29 AM [facility] Blood BLOOD SPECIMEN / Unknown Lab Venipuncture / Unknown 09/03/2024 2:10 AM [facility] 09/03/2024 3:02 AM [facility] Reina Ma MD LAB - CHEMISTRY [facility] [address] [address], [place] [phone] * MAGNESIUM BLOOD (09/03/2024 2:10 AM FIRST [facility]HER) Only the most recent of3 resultswithin the time period is included. Magnesium 2.2 1.6 - 2.6 mg/dL 09/03/2024 3:29 AM [facility] Blood BLOOD SPECIMEN / Unknown Lab Venipuncture / Unknown 09/03/2024 2:10 AM [facility] 09/03/2024 3:02 AM [facility] Reina Ma MD LAB - CHEMISTRY [facility] Organization Address City/State/ZIP Co de Phone Number [facility] [address] [place] [address], [facility] [phone] * MRI Brain Wo Contrast (09/02/2024 4:44 PM FIRST [facility]HER) Anatomical Region Laterality Modality Head Magnetic Resonan ce 09/02/2024 4:25 PM [facility] Impressions 09/04/2024 12:47 PM [facility] IMPRESSION: 1. No evidence of acute infarct. [...] Report dictated by Roberto Eden MD, PhD (dental resident). I, Loren Marin MD have personally reviewed and interpreted this examination/study. > Interpreting Provider: Loren Marin MD on 09/04/2024 12:47 PM Narrative 09/04/2024 12:47 PM [facility] PROCEDURE: MRI BRAIN WO CONTRAST, DATE/TIME OF EXAM: 09/02/2024 4:44 PM, LOCATION [facility] INDICATION: I61.2: Nontraumatic hemorrhage of right cerebral [...] CONTRAST, DATE/TIME OF EXAM: 09/02/2024 4:44PM, LOCATION [facility] INDICATION: I61.2: Nontraumatic hemorrhage of right cerebral [...] Report dictated by Roberto Eden MD, PhD (dental resident). I, Loren Marin MD have personally reviewed and interpreted this examination/study. > Interpreting Provider: Loren Marin MD on 09/04/2024 12:47 PM Reina Ma MD MR ORDERABLES * VAS Bilateral Venous Duplex Le (09/02/2024 11:36 AM FIRST [facility]HER) Anatomical Region Laterality Modality Lower Extremity Ultrasound 09/02/2024 8:59 AM FIRST [facility] Narrative Procedure Note Bon Garcia MD - 09/02/2024 Reina Ma MD VASCULAR LAB ORDERAB LES * TROPONIN-I HIGH SENSITIVE BASELINE + 1HR (08/31/2024 4:12 PM FIRST [facility]HER) Pathologist [facility] Troponin I High Sensitive <3 <=14 ng/L 08/31/2024 5:08 PM [facility] Blood BLOOD SPECIMEN / Unknown Lab Venipuncture / Unknown 08/31/2024 4:12 PM [facility] 08/31/2024 4:32 PM [facility] Ayan Livingston MD LAB - CHEMISTRY TAISHAE ROLY [facility] [address] [place] [phone], [facility] [phone] * BLOOD TYPE VERIFICATION (08/31/2024 4:12 PM FIRST [facility]HER) ABO Rh A POS 08/31/2024 5:1 3 PM [facility] B[facility] LAB Blood Bank BLOOD SPECIMEN / Unknown Lab Venipuncture / Unknown 08/31/2024 4:12 PM [facility] 08/31/2024 4:40 PM [facility] Ayan Livingston MD LAB - BLOOD BANK ORD TIFFANY Performing Organization Address City/[facility]/ZIP Co de Phone Number [facility] [address] [place] [phone], [facility] [phone] * (ABNORMAL) HEMOGLOBIN A1C (08/31/2024 4:12 PM [facility]HER) Hemoglobin A1c 6.0(H) <=5.6 % 09/01/2024 8:55 AM [facility] Estimated Average Glucose 126 mg/dL 09/01/2024 8:55 AM [facility] Comment: HbA1c Interpretation: Normal : < 5.7% Pre-diabetes: 5.7-6.4% Diabetes: Equal to or greater than 6.5% Test results diagnostic of diabetes should be repeated for confirmation. Treatment target values recommended by ADA and other clinical organizations should be used to evaluate metabolic control in patients. Reference: [place] [employer], Standards of Care in Diabetes -2020 In patients 70 years and older consider HbA1c target range of 7.0-7.5% (Reference: Davon Goldstein et al. JAMDA. 2012) The Sebia assay for the measurement of HbA1c is a National Glycohemoglobin Standardization Program (NGSP) certified method. Blood BLOOD SPECIMEN / Unknown Lab Venipuncture / Unknown 08/31/2024 4:12 PM [facility] 08/31/2024 4:33 PM [facility] Ayan Livingston MD LAB - CHEMISTRY JONG DUNH[facility] [address] [place] [address], [facility] [phone] * (ABNORMAL) URINALYSIS REFLEX TO MICROSCOPIC NO CULTURE (08/31/2024 2:54 PM [facility]HER) Color UA Yellow Straw, Yellow 08/31/2024 3:23 PM [facility] Clarity UA Clear Clear 08/31/2024 3:23 PM [facility] Specific [place]alimar UA 1.029 1.005 - 1.030 08/31/2024 3:23 PM [facility] pH UA 5.0 5.0 - 8.0 pH 08/31/2024 3:23 PM [facility] Protein UA Negative Negative 08/31/2024 3:23 PM [facility] Glucose UA Negative Negative 08/31/2024 3:23 PM [facility] Ketone UA Negative Negative 08/31/2024 3:23 PM [facility] Bilirubin UA Negative Negative 08/31/2024 3:23 PM [facility] Blood UA Negative Negative 08/31/2024 3:23 PM [facility] Nitrite UA Negative Negative 08/31/2024 3:23 PM [facility] Leukocyte Esterase Negative Negative 08/31/2024 3:23 PM [facility] Urobilinogen UA Negative Negative mg/dL 08/31/2024 3:23 PM [facility] RBC UA 3-5 None Seen, 0-2, 3-5 /HPF 08/31/2024 3:23 PM [facility] WBC UA 6-10(A) None Seen, 0-5 /HPF 08/31/2024 3:23 PM [facility] Squamous Epithelial Cells UA 0-2 None Seen, 0-2, 3-5 /HPF 08/31/2024 3:23 PM [facility] Urine URINE SPECIMEN OBTAINED BY SINGLE CATHETERIZATION OF URINARY BLADDER / Unknown Collection / Unknown 08/31/2024 2:54 PM [facility] 08/31/2024 3:00 PM [facility] Narrative [facility] - 08/31/2024 3:23 PM [facility] Reina Ma MD LAB - URINALYSIS ORD ERABLES [facility] [address] [place] [address], [facility] [phone] * CULTURE URINE (08/31/2024 2:54 PM FIRST [facility]HER) Culture Urine No growth (<100 CFU/mL) KRISTIN 09/01/2024 9:37 PM FIRST [facility]CRO[facility]OLOG[facility] Urine URINE SPECIMEN OBTAINED BY SINGLE CATHETERIZATION OF URINARY BLADDER / Unknown Collection / Unknown 08/31/2024 2:54 PM [facility] 08/31/2024 3:00 PM [facility] Reina Ma MD LAB - MICROBIOLOGY O RDERABLES [facility] [address] [place] [address], [facility] [phone] * URINE DRUG SCREEN IMMUNOASSAY (08/31/2024 2:54 PM [facility]) Amphetamines Screen Urine Negative Negative: < 1000 ng/mL 08/31/2024 3:25 PM [facility] Barbiturates Screen Urine Negative Negative: < 200 ng/mL 08/31/2024 3:25 PM [facility] Benzodiazepine Screen Urine Negative Negative: < 200 ng/mL 08/31/2024 3:25 PM [facility] Opiates Urine Negative Negative: < 300 ng/mL 08/31/2024 3:25 PM [facility] Cocaine Metabolites Urine Negative Negative: < 300 ng/mL 08/31/2024 3:25 PM [facility] Phencyclidine Screen Urine Negative Negative: < 25 ng/ml 08/31/2024 3:25 PM [facility] Cannabinoids Screen Urine Negative Negative: <50 ng/mL 08/31/2024 3:25 PM [facility] Methadone Screen Urine Negative Negative: < 300 ng/mL 08/31/2024 3:25 PM [facility] Fentanyl Screen Urine Negative Negative: <1.5 ng/mL 08/31/2024 3:25 PM [facility] Urine URINE / Unknown Collection / Unknown 08/31/2024 2:54 PM [facility] 08/31/2024 3:00 PM [facility] Narrative [facility] - 08/31/2024 3:25 PM FIRST CRUSHER The Urine Toxicology Screening Panel does not screen for Propoxyphene, Meprobamate, Carisoprodol, Trazodone, oecy-sjg-ovrznuo medications and/or volatiles (Acetone, Isopropanol, Methanol or Ethylene Glycol). Ethanol, Salicylate, Acetaminophen, Tricyclic Antidepressants and several therapeutic drugs may be individually assayed in serum or plasma specimen. Toxicology testing by the [facility] is an aid to medical diagnosis and treatment of patients. No documented chain of custody was maintained. Results are intended to be used for clinical purposes only. Reina Ma MD LAB - URINE CHEMISTR Y ORDERABLES Performing Organization Address City/[facility] Co de Phone Number [facility] [address] [place] [address], [facility] [phone] * EKG 12-LEAD (08/31/2024 11:06 AM FIRST [facility]HER) Ventricular Rate 76 BPM SL MUSE Atrial Rate 76 BPM [facility] MUSE P-R Interval 384 ms [facility] MUSE QRS Duration ms 160 ms [facility] MUSE Q-T Interval ms 432 ms [facility] MUSE QTC Calculation (Bezet) 486 ms [facility] MUSE Calculated R Lamont -92 degrees [facility] MUSE Calculated T Lamont 43 degrees [facility] MUSE Interpretation EKG SINUS RHYTHM WITH 1ST DEGREE A-V BLOCK RIGHT BUNDLE BRANCH BLOCK ABNORMAL ECG NO PREVIOUS ECGS AVAILABLE Confirmed by KOLE GOODEN MD ([id number]) on 08/31/2024 5:06:06 PM [facility] MUSE 08/31/2024 11:0 6 AM [facility] 08/31/2024 5:06 PM [facility] Ayan Livingston MD ECG ORDERABLES Performing Organization Address [facility] Co de Phone Number [facility] MUSE * (ABNORMAL) PTT SLH (08/31/2024 11:02 AM FIRST [facility]HER) APTT 40.4(H) 23.0 - 38.4 Seconds 08/31/2024 11:30 AM [facility] Comment:Suggested therapeuti c range for full dose I.V. unfractionated heparin therapy for venous thromboembolism is 71 to 109 seconds. Blood BLOOD SPECIMEN / Unknown Venipuncture / Unknown 08/31/2024 11:02 AM [facility] 08/31/2024 11:10 AM [facility] Reina Ma MD LAB - COAGULATION OR DERABLES Performing Organization Address City/[facility]/ZIP Co de Phone Number [facility] [address] [place] [address], [facility] [phone] * (ABNORMAL) PT-INR [facility] (08/31/2024 11:02 AM FIRST CRUSHER) Pathologist [facility] PT 18.3(H) 12.1 - 14.8 Seconds 08/31/2024 11:30 AM [facility] INR 1.6 See Comment 08/31/2024 11:30 AM [facility] Comment:The suggested therap eutic range for standard coumadin (warfarin) therapy is an INR of 2.0-3.0. For high-risk patients (Mechanical Mitral Valve Prosthesis, etc.), the suggested prophylactic therapeutic range is an INR of 2.5-3.5. Blood BLOOD SPECIMEN / Unknown Venipuncture / Unknown 08/31/2024 11:02 AM [facility] 08/31/2024 11:10 AM [facility] Ayan Livingston MD LAB - COAGULATION OR DERABLES [facility] [address] [place] [phone], [facility] [phone] * TYPE + SCREEN PANEL (08/31/2024 11:02 AM FIRST CRUSHER) Pathologist [facility] Antibody Screen NEG 11:44 AM [facility] ABO Rh A POS 08/31/2024 11:44 AM [facility] LAB Blood Bank BLOOD SPECIMEN / Unknown Venipuncture / Unknown 08/31/2024 11:02 AM [facility] 08/31/2024 11:[address] [facility] Ayan Livingston MD LAB - BLOOD BANK ORD ERABLES Performing Organization Address [facility]/State/ZIP Co de Phone Number [facility] [address] [place] [address] [phone] * (ABNORMAL) COMPREHENSIVE METABOLIC PANEL (08/31/2024 11:[address] [facility]) BUN 28(H) 7 - 26 mg/dL 08/31/2024 11:36 AM [facility] Creatinine 0.79 0.56 - 0.96 mg/dL 08/31/2024 11:36 AM [facility] Sodium 140 136 - 145 mmol/L 08/31/2024 11:36 AM [facility] Potassium 4.2 3.5 - 4.5 mmol/L 08/31/2024 11:36 AM [facility] Chloride 113(H) 98 - 107 mmol/L 08/31/2024 11:36 AM [facility] CO2 25 22 - 29 mmol/L 08/31/2024 11:36 AM [facility] Glucose 87 70 - 99 mg/dL 08/31/2024 11:36 AM [facility] Calcium 9.5 8.4 - 10.2 mg/dL 08/31/2024 11:36 AM [facility] Protein Total 6.4 6.0 - 8.3 g/dL 08/31/2024 11:36 AM [facility] [facility] Albumin 3.4 3.4 - 5.0 g/dL 08/31/2024 11:36 AM [facility] Bilirubin Total 0.2 0.2 - 1.2 mg/dL 08/31/2024 11:36 AM [facility] Alkaline Phosphatase 103 40 - 150 U/L 08/31/2024 11:36 AM [facility] ALT 23 5 - 55 U/L 08/31/2024 11:36 AM [facility] AST 22 5 - 34 U/L 08/31/2024 11:36 AM [facility] Anion Gap 2(L) 6 - 16 08/31/2024 11:36 AM [facility] BUN/Creatinine Ratio 35(H) 7 - 23 08/31/2024 11:36 AM [facility] Osmolality Calculated 295 275 - 295 mOsm/kg 08/31/2024 11:36 AM [facility] Albumin/Globulin Ratio 1.1 1.1 - 2.3 08/31/2024 11:36 AM [facility] eGFR by CKD-EPI 77(L) >=90 mL/min/1.7 3 m2 08/31/2024 11:36 AM [facility] Blood BLOOD SPECIMEN / Unknown Venipuncture / Unknown 08/31/2024 11:02 AM [facility] 08/31/2024 11:10 AM [facility] Ayan Livingston MD [facility] Organization Address City/State/ZIP Co de Phone Number [facility] [address] [place] [phone], [facility] [phone] * CT ANGIO BRAIN NECK STROKE (08/31/2024 11:00 AM [facility]) Anatomical Region Laterality Modality Head Computed Tomogra phy 08/31/2024 11:2 3 AM [facility] Impressions 08/31/2024 12:09 PM [facility] IMPRESSION: 1. No large arterial occlusions or significant stenoses identified in the head or neck. 2. Multiple bilateral inferior lobar thyroid nodules measuring up to 1 cm. This preliminary report was dictated by Demar Elkins MD (DR/IR Resident). I, Loren Marin MD have personally reviewed and interpreted this examination/study. > Interpreting Provider: Loren Marin MD on 08/31/2024 12:09 PM Narrative 08/31/2024 12:09 PM [facility] PROCEDURE: CT ANGIO BRAIN NECK STROKE, DATE/TIME OF EXAM: 08/31/2024 11:00 AM, LOCATION [facility] INDICATION: Code Stroke ADDITIONAL CLINICAL INFORMATION: Ordering [...] DATE/TIME OF EXAM: 08/31/2024 11:00 AM, LOCATION [facility] INDICATION: Code Stroke ADDITIONAL CLINICAL INFORMATION: Ordering [...] OF CARE (IP) STROKE (08/31/2024 10:53 AM [facility]) INR 1.2 0.9 - 1.2 08/31/2024 10:54 AM [facility] Device [id number] 08/31/2024 10:54 AM [facility] Puller Out ID [id number] 08/31/2024 10:54 AM [facility] Blood BLOOD SPECIMEN / Unknown 08/31/2024 10:53 AM [facility] 08/31/2024 10:54 AM [facility] Provider Unknown LAB - POINT OF CARE ORDERABLES [facility] [address] [place] [address], [facility] [phone] * CREATININE - POCT INTERFACED (08/31/2024 10:[address] [facility]) Creatinine POCT 0.56 0.30 - 1.30 mg/dL 08/31/2024 11:00 AM [facility] eGFR >90 >=90 mL/min/1.7 3 m2 08/31/2024 11:00 AM [facility] Blood BLOOD SPECIMEN / Unknown 08/31/2024 10:53 AM [facility] 08/31/2024 11:00 AM [facility] Provider Unknown LAB - POINT OF CARE ORDERABLES Performing Organization Address City/[facility]/ZIP Co de Phone Number [facility] [address] [place] [phone], [facility] [phone] * CT BRAIN - Stroke (08/31/2024 10:50 AM [facility]) Anatomical Region Laterality Modality Head Computed Tomogra phy 08/31/2024 11:0 4 AM [facility] Impressions 08/31/2024 11:09 AM [facility] IMPRESSION: 1. 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
--- OUTSIDE RECORDS SUMMARY | 2024-11-03 12:21 | XMS_ITS | Continuity of Care Document ---
Author Organization [facility] Address [address] [place] [address] Phone Care Team Providers Care Conference Service Coordinator Name Role Phone Femi Wiggins MD Unavailable [...] Diagnoses Date Provider Providers Copied on Encounter [facility], [address], [place], [place], [id number], [place] tel:[phone] SEC Jason SARMIENTO Professional Diabetic eye exam (chief complaint) Type 2 diabetes mellitus without complication sPresence of intraocular lensExdtve age-rel mclr degn, right eye, with inact chrdl neovasNexdtv e age-related mclr degn, left eye, early dry stage 3 Feliciano Kahn. [address] [facility], [facility] [place], [address], [place]. tel:[phone] Referring Provider: Angelina Marroquin MD K, [address], [address], [place], [address]. tel:[phone] Office/outpa tient Visit, Est [facility], [address] [employer] [address], [place], [place], [address], tel:[phone] SEC [place] Professional 6 month Complete (chief complaint) Presence of intraocular lensExdtve age-rel mclr degn, right eye, with inact chrdl neovasHistor y of endophthalmi tisOther secondary cataract, right eyeType 2 diabetes mellitus without complication sVitreous degeneration , bilateral Maurice- 2 Jerrica OD Denise. [facility] [employer], [address], [place], [place], [address], [place]. tel:[phone] Referring Provider: Angelina Dela Cruz, [address] [place] [address], [facility] [address], [place], [address]. tel:[phone] [facility], [facility] [employer] [address], [place], [place], [address], tel:[phone] SEC Jason SARMIENTO Professional 1 month s/p PCIOL (chief complaint) Post op visit Aug- 1 Jerrica OD Denise. [facility] [employer], [address], [place], [place], [address], [place]. tel:[phone] Referring Provider: Angelina Dela Cruz, [address], [facility] [address], [place], [address]. tel:[phone] [facility], [address] [employer] [address], [place], [place], [address], tel:[phone] SEC Jason SARMIENTO Professional 1 wk po PCIOL OS (08/14/21) (chief complaint) Post op visit Dec-0 1 Jerrica OD Denise. [facility] [employer], [address], [place], [place], [address], . tel:[phone] Referring Provider: Angelina Dela Cruz, [address] [facility] [address], [address], [place], [address]. tel:[phone] [facility], [address], [place], [place], [address], [place] tel:[phone] SEC [place] Professional 1 day s/p PCIOL (chief complaint) Post op visit 0 1 Jerrica BRYANT Denise. [address] [place] [address] [address], [address], [place], [place], [address], [place]. tel:[phone] Referring Provider: Angelina Dela Cruz, [address], [facility] [address], [place], [address]. tel:[phone] [facility], [address], [place], [place], [address], [place] tel:[phone] [facility] No Information 1 Feliciano Kahn. [address] [facility], [place], [address], [place]. tel:[phone] Referring Provider: Angelina Dela Cruz, [address] [place] [address], [facility] [address], [place], [address]. tel:[phone] [facility], [address], [place], [place], [address], [place] [phone] SEC Jason GUILLERMINA Professional No Information 1 Feliciano Kahn. [address] [facility], [address], [place], [place], [address], [place]. tel:[phone] Referring Provider: Angelina Dela Cruz, [address], [address], [place], [address]. tel:[phone] Office/outpa tient Visit, Est [facility], [address], [place], [place], [address], [place] [phone] SEC [place] Professional 6 month Cataract check (chief complaint) Exdtve age-rel mclr degn, right eye, with inact chrdl neovasType 2 diabetes mellitus without complication sNexdtve age-related mclr degn, left eye, early dry stageCombine d forms of age-related cataract, left eye Oct-2 1 Feliciano Kahn. [address], [address] [place], [address], [place]. tel:[phone] Referring Provider: Angelina Dela Cruz, [address], [address], [place], [address]. tel:[phone] [facility], [address], [place], [place], [address], [place] tel:[phone] SEC Jason SARMIENTO Professional 6 month Cataract check (chief complaint) Nexdtve age-related mclr degn, left eye, early dry stageExdtve age-rel mclr degn, right eye, with inact chrdl neovasPseudo phakia of right eyeAge-relat ed nuclear cataract, left eyeOther secondary cataract, right eyeVitreous degeneration , bilateralTyp e 2 diabetes mellitus without complication s Apr-2 1 Feliciano Kahn. [address], [place], [place], [address], [place]. tel:[phone] Referring Provider: Angelina Dela Cruz, [address], [address], [place], [address]. tel:[phone] [facility], [address], [place], [place], [address], [place] [phone] SEC Jason [place] Professional No Information Apr-0 1 Feliciano Kahn. [address], [place], [place], [address], [place]. tel:[phone] Office/outpa tient Visit, Est [facility], [address] [place] [address] [address], [place], [place], [address], tel:[phone] SEC Jason SARMIENTO Professional Complete exam (chief complaint) Type 2 diabetes mellitus without complication sPseudophaki a of right eyeNexdtve age-related mclr degn, left eye, early dry stageCombine d forms of age-related cataract, left eyeOther secondary cataract, right eyeExdtve age-rel mclr degn, right eye, with inact chrdl neovas Oct-2 7202 0 Feliciano Kahn. [address] [facility], [address], [place], [place], [address], [place]. tel:[phone] Referring Provider: Angelina Dela Cruz, [address] [place] [address], [facility] [address], [place], [address]. tel:[phone] [facility], [address] [place] [address] [address], [place], [place], [address], tel:[phone] SEC Jason SARMIENTO Professional Postop PCIOL OD (11/30/19) (chief complaint) Post op visit Dec-2 202 0 Bety OD Fermín. [address], [address], [place], [address], [place]. tel:[phone] Referring Provider: Angelina Dela Cruz, [address] [place] [address], [address], [place], [address]. tel:[phone] [facility], [address] [place] [address] [address], [place], [place], [address], [place] tel:[phone] SEC [place] Shelbiyonis 1 week s/p PCIOL (chief complaint) Post op visit Nov-3 0-202 0 Kristy Funes. [address] [place] [address] Drive, [address], [place], [place], [address], [place]. tel:[phone] Referring Provider: Angelina Dela Cruz, [address], [facility] [address], [place], [address]. tel:[phone] [facility], [address], [place], [place], [address], [place] tel:[phone] SEC Jason SARMIENTO Professional 1 day s/p PCIOL (chief complaint) Post op visit 0 Bety MANNY Fermín. [address] [facility], [address], [place], [address], [place]. tel:[phone] Referring Provider: Angelina Dela Cruz, [address], [address], [place], [address]. tel:[phone] [facility], [address], [place], [place], [address], [place] tel:[phone] [facility] No Information 0 Feliciano Kahn. [address] [facility], [facility] [place], [place], [address], [place]. tel:[phone] Referring Provider: Angelina Dela Cruz, [address], [address], [place], [address]. tel:[phone] [facility], [address], [place], [place], [address], [place] tel:[phone] SEC Jason SARMIENTO Professional No Information 0 Feliciano Kahn. [address] [facility], [facility] [place], [address], [place]. tel:[phone] Referring Provider: Angelina Dela Cruz, [address], [address], [place], [address]. tel:[phone] Office/outpa tient Visit, [facility], [address], [place], [place], [address], [place] tel:[phone] SEC Jason SARMIENTO Professional Cataract evaluation (chief complaint) Combined forms of age-related cataract, bilateralTyp e 2 diabetes mellitus without complication sNexdtve age-related mclr degn, left eye, early dry stagePunctat e keratitis, left eyeHistory of endophthalmi tisExdtve age-rel mclr degn, right eye, with inact chrdl neovas 0-202 0 Feliciano Kahn. [address] [facility], [address], [place], [place], [address], [place]. tel:[phone] Referring Provider: Angelina Marroquin MD K, [address], [address], [place], [address]. tel:[phone] [facility], [address], [place], [place], [address], [place] tel:[phone] SEC [place] GUILLERMINA Professional No Information 0 Feliciano Kahn. [address] [facility], [facility] [address], [place], [place], [address], [place]. tel:[phone] [facility], [address], [place], [place], [address], [place] tel:[phone] SEC [place] GUILLERMINA Professional Blurry vision (chief complaint) Lesion of eyelidNuclea r sclerosis of both eyesMacular pigment epithelial detachment, rightType 2 diabetes mellitus without complication s 3-201 6 Feliciano Kahn. [address] [facility], [facility] [address], [place], [place], [address], [place]. tel:[phone] Referring Provider: Sharonda Aparicio OD, [facility] [address] [facility], [place], [address]. tel:[phone] Family History Family Member Type Diagnosis Age At Onset No Information Payers Payer name Insurance type Covered libertarian ID Authoriza tion(s) [place] GRECIA [id number] [employer] Mdcr Supp CI [id number] Social History Type Description Quantity Date Captured [...]
--- OUTSIDE RECORDS SUMMARY | 2024-11-03 12:21 | XMS_ITS | Patient Health Summary ---
Author Organization [facility] [place] Address [address] [place] [address] Care Team Providers Care Industrial Production Manager Name Role Phone Provider, No Pcp Primary Care Provider Unavailab le Note from [facility],non-owned Affiliates and Associated Physician Practices is amultiple site organization consisting of ambulatory clinics and hospital sitesin [place], [place], [place] and [place]. This disclosure is being madepursuant to the Care Everywhere program and may not contain all information available regarding this patient. Last updated 18.[facility] Allergies * Unruly Inhibitors(Angioedema,Anaphylaxis) -High Criticality * Acetaminophen(Other) -Low Criticality * Codeine(Other) -Low Criticality * Hydrochlorothiazide(Other) -High Criticality * Tramadol(Nausea and/or Vomiting) -Low Criticality * Triamterene(Other) -Low Criticality Medications * Be aware that medications may not be up to date on this document. Alwaysverify current medications with the patient. * amiodarone (Pacerone) 100 MG tablet(Started 09/04/2024) Take 1 (one) tablet by mouth once daily Reasons: Atrial Fibrillation 3 refills by 09/03/2025 * atenolol (Tenormin) 25 MG tablet(Started 09/04/2024) Take 1 (one) tablet by mouth once daily Reasons: Atrial Fibrillation 3 refills by 09/03/2025 * atorvastatin (Lipitor) 40 MG tablet(Started 09/03/2024) Take 1 (one) tablet by mouth at bedtime 3 refills by 09/03/2025 * losartan (Cozaar) 50 MG tablet(Started 09/04/2024) Take 1 (one) tablet by mouth once daily 3 refills by 09/03/2025 * rivaroxaban (Xarelto) 20 MG tablet(Started 09/03/2024) Take 1 (one) tablet by mouth daily with dinner Reasons: Atrial Fibrillation, Blood Clot in a Deep Vein 3 refills by 09/03/2025 * spironolactone (Aldactone) 50 MG tablet(Started 09/04/2024) Take 1 (one) tablet by mouth once daily 3 refills by 09/03/2025 * vitamin D3 (Cholecalciferol) 25 MCG (1000 UNITS) tablet Take 2 (two) tablets by mouth once daily * Multiple Vitamins-Minerals (PreserVision AREDS 2) capsule Take 2 (two) capsules by mouth 2 times daily Active Problems Problem Noted Date Diagnosed Date [...] Recorded Patient Health Questionnaire-2 Score 0 09/03/2024 [facility] of Occupat ional Health - Occupational Stress [...] [facility] in the [facility] were you homeless or living in a assisted (including now)? No 08/31/2024 Sex and Gender Information Value Date Recorded Sex Assigned at Not on file Gender Identity Not on file Sexual Orientation Not on file Last Filed Vital Signs Vital Sign Reading Time Taken Comments Blood Pressure 141/70 09/03/2024 8:04 AM ODD SHOE EXAMINER Pulse 105 09/03/2024 8:04 AM ODD SHOE EXAMINER Temperature 36.6 C (97.9 F) 09/03/2024 8:04 AM ODD SHOE EXAMINER Respiratory Rate 18 09/03/2024 8:04 AM ODD SHOE EXAMINER Oxygen Saturation 100% 09/03/2024 8:04 AM ODD SHOE EXAMINER Inhaled Oxygen Concentration - - Weight 56.7 kg (125 lb) 09/01/2024 8:07 PM ODD SHOE EXAMINER Height 162.6 cm (5' 4 ) 09/01/2024 8:07 PM ODD SHOE EXAMINER Body Mass Index 21.46 09/01/2024 8:07 PM ODD SHOE EXAMINER Procedures * GLUCOSE - POINT OF CARE(Performed 09/03/2024) * PHOSPHORUS BLOOD(Performed 09/03/2024) Performed for 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) * MAGNESIUM BLOOD(Performed 09/03/2024) Performed for 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) * CBC W AUTO DIFFERENTIAL(Performed 09/03/2024) Performed for 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) * BASIC METABOLIC PANEL (CALCIUM TOTAL)(Performed 09/03/2024) Performed for 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) * GLUCOSE - POINT OF CARE(Performed 09/02/2024) * GLUCOSE - POINT OF CARE(Performed 09/02/2024) * MRI BRAIN WO CONTRAST(Performed 09/02/2024) Performed for 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) * GLUCOSE - POINT OF CARE(Performed 09/02/2024) * VAS BILATERAL VENOUS DUPLEX LE(Performed 09/02/2024) Performed for Acute deep vein thrombosis (DVT) of distal vein of left lower extremity (HCC) * GLUCOSE - POINT OF CARE(Performed 09/02/2024) * CBC W AUTO DIFFERENTIAL(Performed 09/02/2024) Performed for 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) * PHOSPHORUS BLOOD(Performed 09/02/2024) Performed for 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) * MAGNESIUM BLOOD(Performed 09/02/2024) Performed for 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) * BASIC METABOLIC PANEL (CALCIUM TOTAL)(Performed 09/02/2024) Performed for 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) * GLUCOSE - POINT OF CARE(Performed 09/01/2024) * GLUCOSE - POINT OF CARE(Performed 09/01/2024) * GLUCOSE - POINT OF CARE(Performed 09/01/2024) * GLUCOSE - POINT OF CARE(Performed 09/01/2024) * GLUCOSE - POINT OF CARE(Performed 09/01/2024) * GLUCOSE - POINT OF CARE(Performed 09/01/2024) * PHOSPHORUS BLOOD(Performed 09/01/2024) Performed for 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) * MAGNESIUM BLOOD(Performed 09/01/2024) Performed for 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) * CBC W AUTO DIFFERENTIAL(Performed 09/01/2024) Performed for 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) * BASIC METABOLIC PANEL (CALCIUM TOTAL)(Performed 09/01/2024) Performed for 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) * GLUCOSE - POINT OF CARE(Performed 09/01/2024) * GLUCOSE - POINT OF CARE(Performed 08/31/2024) * GLUCOSE - POINT OF CARE(Performed 08/31/2024) * GLUCOSE - POINT OF CARE(Performed 08/31/2024) * BLOOD TYPE VERIFICATION(Performed 08/31/2024) * HEMOGLOBIN A1C(Performed 08/31/2024) Performed for 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) * TROPONIN-I HIGH SENSITIVE BASELINE + 1HR(Performed 08/31/2024) Performed for 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) * GLUCOSE - POINT OF CARE(Performed 08/31/2024) * URINALYSIS REFLEX TO MICROSCOPIC NO CULTURE(Performed 08/31/2024) * URINE DRUG SCREEN IMMUNOASSAY(Performed 08/31/2024) Performed for 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) * CULTURE URINE(Performed 08/31/2024) * EKG 12-LEAD(Performed 08/31/2024) Performed for Generalized weakness * TYPE + SCREEN PANEL(Performed 08/31/2024) * PTT [facility](Performed 08/31/2024) Performed for 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) * PT-INR [facility](Performed 08/31/2024) * COMPREHENSIVE METABOLIC PANEL(Performed 08/31/2024) * CBC W AUTO DIFFERENTIAL(Performed 08/31/2024) * CT ANGIO BRAIN NECK STROKE(Performed 08/31/2024) Performed for Generalized weakness * CREATININE - POCT INTERFACED(Performed 08/31/2024) * INR WHOLE BLOOD - POINT OF CARE (IP) STROKE(Performed 08/31/2024) * CT BRAIN STROKE(Performed 08/31/2024) Performed for Generalized weakness * GLUCOSE - POINT OF CARE(Performed 08/31/2024) Results * (ABNORMAL) GLUCOSE - POINT OF CARE (09/03/2024 12:25 PM ODD SHOE EXAMINER) Only the most recent of17 resultswithin the time period is included. Glucose WB/POC 168(H) 70 - 99 mg/dL 09/03/2024 2:56 PM ODD SHOE EXAMINER [facility] Specimen Type Arterial 09/03/2024 2:56 PM ODD SHOE EXAMINER [facility] Blood BLOOD SPECIMEN / Unknown 09/03/2024 12:25 PM ODD SHOE EXAMINER 09/03/2024 2:56 PM ODD SHOE EXAMINER Reina Ma MD LAB - POINT OF CARE ORDERABLES [facility] [address] [place] [address], [facility] [phone] * (ABNORMAL) CBC W AUTO DIFFERENTIAL (09/03/2024 2:10 AM ODD SHOE EXAMINER) Only the most recent of4 resultswithin the time period is included. WBC 9.3 4.0 - 10.7 x10E9/L 09/03/2024 3:08 AM [facility] RBC Count 3.38(L) 3.90 - 5.20 x10E12/L 09/03/2024 3:08 AM [facility] Hemoglobin 9.0(L) 11.9 - 15.8 g/dL 09/03/2024 3:08 AM [facility] Hematocrit 28.4(L) 34.8 - 46.1 % 09/03/2024 3:08 AM [facility] MCV 84.0 80.0 - 98.0 fL 09/03/2024 3:08 AM [facility] MCH 26.6(L) 26.7 - 33.6 pg 09/03/2024 3:08 AM [facility] MCHC 31.7 31.7 - 36.3 g/dL 09/03/2024 3:08 AM [facility] RDW-CV 15.0(H) 11.3 - 14.8 % 09/03/2024 3:08 AM [facility] Platelet Count 356 150 - 420 x10E9/L 09/03/2024 3:08 AM [facility] MPV 9.6 7.8 - 11.4 fL 09/03/2024 3:08 AM [facility] Neutrophil % 56.8 41.0 - 74.0 % 09/03/2024 3:08 AM [facility] Lymphocyte % 28.1 17.0 - 47.0 % 09/03/2024 3:08 AM [facility] Monocyte % 11.5(H) 3.0 - 11.0 % 09/03/2024 3:08 AM [facility] Eosinophil % 2.8 0.0 - 7.0 % 09/03/2024 3:08 AM [facility] Basophil % 0.4 0.0 - 1.6 % 09/03/2024 3:08 AM [facility] Immature Granulocytes % 0.4 0.0 - 1.0 % 09/03/2024 3:08 AM [facility] Neutrophil Absolute 5.27 1.60 - 7.50 x10E9/L 09/03/2024 3:08 AM [facility] Lymphocyte Absolute 2.61 1.00 - 4.40 x10E9/L 09/03/2024 3:08 AM [facility] Monocyte Absolute 1.07(H) 0.15 - 1.00 x10E9/L 09/03/2024 3:08 AM [facility] Eosinophil Absolute 0.26 0.00 - 0.60 x10E9/L 09/03/2024 3:08 AM [facility] Basophil Absolute 0.04 0.00 - 0.13 x10E9/L 09/03/2024 3:08 AM [facility] Blood BLOOD SPECIMEN / Unknown Lab Venipuncture / Unknown 09/03/2024 2:10 AM ODD SHOE EXAMINER 09/03/2024 3:02 AM [facility] Reina Ma MD LAB - HEMATOLOGY ORD ERABLES [facility] [address] [place] [id number], [facility] [phone] * (ABNORMAL) BASIC METABOLIC PANEL (CALCIUM TOTAL) (09/03/2024 2:10 AM ODD SHOE EXAMINER) Only the most recent of3 resultswithin the time period is included. BUN 26 7 - 26 mg/dL 09/03/2024 3:29 AM [facility] Creatinine 0.87 0.56 - 0.96 mg/dL 09/03/2024 3:29 AM [facility] Sodium 139 136 - 145 mmol/L 09/03/2024 3:29 AM [facility] Potassium 4.6(H) 3.5 - 4.5 mmol/L 09/03/2024 3:29 AM [facility] Chloride 109(H) 98 - 107 mmol/L 09/03/2024 3:29 AM [facility] CO2 22 22 - 29 mmol/L 09/03/2024 3:29 AM [facility] Glucose 125(H) 70 - 99 mg/dL 09/03/2024 3:29 AM [facility] Calcium 8.9 8.4 - 10.2 mg/dL 09/03/2024 3:29 AM [facility] Anion Gap 8 6 - 16 09/03/2024 3:29 AM [facility] BUN/Creatinine Ratio 30(H) 7 - 23 09/03/2024 3:29 AM [facility] Osmolality Calculated 294 275 - 295 mOsm/kg 09/03/2024 3:29 AM [facility] eGFR by CKD-EPI 69(L) >=90 mL/min/1.7 3 m2 09/03/2024 3:29 AM [facility] Blood BLOOD SPECIMEN / Unknown Lab Venipuncture / Unknown 09/03/2024 2:10 AM ODD SHOE EXAMINER 09/03/2024 3:02 AM ODD SHOE EXAMINER Reina Ma MD LAB - CHEMISTRY ORDE ROLY [facility] Organization Address City/State/ZIP Co de Phone Number [facility] [address] [place] [phone], [facility] [phone] * PHOSPHORUS BLOOD (09/03/2024 2:10 AM ODD SHOE EXAMINER) Only the most recent of3 resultswithin the time period is included. Phosphorus 3.1 2.9 - 5.1 mg/dL 09/03/2024 3:29 AM [facility] Blood BLOOD SPECIMEN / Unknown Lab Venipuncture / Unknown 09/03/2024 2:10 AM ODD SHOE EXAMINER 09/03/2024 3:02 AM ODD SHOE EXAMINER Reina Ma MD LAB - CHEMISTRY ORDE RABLES Performing Organization Address City/[facility]/ZIP Co de Phone Number [facility] [address] [place] [address], [facility] [phone] * MAGNESIUM BLOOD (09/03/2024 2:10 AM ODD SHOE EXAMINER) Only the most recent of3 resultswithin the time period is included. Magnesium 2.2 1.6 - 2.6 mg/dL 09/03/2024 3:29 AM ODD SHOE EXAMINER [facility] Blood BLOOD SPECIMEN / Unknown Lab Venipuncture / Unknown 09/03/2024 2:10 AM ODD SHOE EXAMINER 09/03/2024 3:02 AM ODD SHOE EXAMINER Reina Ma MD LAB - CHEMISTRY JONG DUNHAM Performing Organization Address [facility] Co de Phone Number [place] [id number] [place] [address], [facility] [phone] * MRI Brain Wo Contrast (09/02/2024 4:44 PM ODD SHOE EXAMINER) Anatomical Region Laterality Modality Head Magnetic Resonan ce 09/02/2024 4:25 PM ODD SHOE EXAMINER Impressions 09/04/2024 12:47 PM ODD SHOE EXAMINER IMPRESSION: 1. No evidence of acute infarct. [...] 09/04/2024 12:47 PM Narrative 09/04/2024 12:47 PM ODD SHOE EXAMINER PROCEDURE: MRI BRAIN WO CONTRAST, DATE/TIME OF EXAM: 09/02/2024 4:44 PM, LOCATION [facility] INDICATION: I61.2: Nontraumatic hemorrhage of right [...] CONTRAST, DATE/TIME OF EXAM: 09/02/2024 4:44PM, LOCATION [facility] INDICATION: I61.2: Nontraumatic hemorrhage of right [...] Bilateral Venous Duplex Le (09/02/2024 11:36 AM ODD SHOE EXAMINER) Anatomical Region Laterality Modality Lower Extremity Ultrasound 09/02/2024 8:59 AM ODD SHOE EXAMINER Narrative Procedure Note Bon Garcia MD - 09/02/2024 Reina Ma MD VASCULAR LAB ORDERAB LES * TROPONIN-I HIGH SENSITIVE BASELINE + 1HR (08/31/2024 4:12 PM ODD SHOE EXAMINER) Troponin I High Sensitive <3 <=14 ng/L 08/31/2024 5:08 PM ODD SHOE EXAMINER [facility] Blood BLOOD SPECIMEN / Unknown Lab Venipuncture / Unknown 08/31/2024 4:12 PM ODD SHOE EXAMINER 08/31/2024 4:32 PM ODD SHOE EXAMINER Ayan Livingston MD LAB - CHEMISTRY ORDE RABMERLIN [facility] [address] [place] [address], [facility] [phone] * BLOOD TYPE VERIFICATION (08/31/2024 4:12 PM ODD SHOE EXAMINER) [facility] ABO Rh A POS 08/31/2024 5:1 3 PM [facility] BLOOD [facility] Blood Bank BLOOD SPECIMEN / Unknown Lab Venipuncture / Unknown 08/31/2024 4:12 PM ODD SHOE EXAMINER 08/31/2024 4:40 PM ODD SHOE EXAMINER Ayan Livingston MD LAB - BLOOD BANK ORD ERABLES Performing Organization Address [facility]/ZIP Co de Phone Number [facility] [address] [place] [address], [facility] [phone] * (ABNORMAL) HEMOGLOBIN A1C (08/31/2024 4:12 PM ODD SHOE EXAMINER) [facility] Hemoglobin A1c 6.0(H) <=5.6 % 09/01/2024 8:55 AM [facility] Estimated Average Glucose 126 mg/dL 09/01/2024 8:55 AM [facility] Comment: HbA1c Interpretation: Normal : < 5.7% Pre-diabetes: 5.7-6.4% Diabetes: Equal to or greater than 6.5% Test results diagnostic of diabetes should be repeated for confirmation. Treatment target values recommended by ADA and other clinical organizations should be used to evaluate metabolic control in patients. Reference: [place] [employer], Standards of Care in Diabetes -2020 In patients 70 years and older consider HbA1c target range of 7.0-7.5% (Reference: Davon Goldstein et al. JAMDA. 2012) The Sebia assay for the measurement of HbA1c is a National Glycohemoglobin Standardization Program (NGSP) certified method. Blood BLOOD SPECIMEN / Unknown Lab Venipuncture / Unknown 08/31/2024 4:12 PM ODD SHOE EXAMINER 08/31/2024 4:33 PM ODD SHOE EXAMINER Ayan Livingston MD LAB - CHEMISTRY JONG Burns Organization Address City/State/ZIP Co de Phone Number [facility] [address] [place] [phone], [facility] [phone] * (ABNORMAL) URINALYSIS REFLEX TO MICROSCOPIC NO CULTURE (08/31/2024 2:54 PM ODD SHOE EXAMINER) Color UA Yellow Straw, Yellow 08/31/2024 3:23 PM [facility] Clarity UA Clear Clear 08/31/2024 3:23 PM [facility] Specific [place] UA 1.029 1.005 - 1.030 08/31/2024 3:23 PM [facility] pH UA 5.0 5.0 - 8.0 pH 08/31/2024 3:23 PM [facility] Protein UA Negative Negative 08/31/2024 3:23 PM [facility] Glucose UA Negative Negative 08/31/2024 3:23 PM [facility] Ketone UA Negative Negative 08/31/2024 3:23 PM [facility] Bilirubin UA Negative Negative 08/31/2024 3:23 PM [facility] Blood UA Negative Negative 08/31/2024 3:23 PM [facility] Nitrite UA Negative Negative 08/31/2024 3:23 PM [facility] Leukocyte Esterase Negative Negative 08/31/2024 3:23 PM [facility] Urobilinogen UA Negative Negative mg/dL 08/31/2024 3:23 PM [facility] RBC UA 3-5 None Seen, 0-2, 3-5 /HPF 08/31/2024 3:23 PM [facility] WBC UA 6-10(A) None Seen, 0-5 /HPF 08/31/2024 3:23 PM [facility] Squamous Epithelial Cells UA 0-2 None Seen, 0-2, 3-5 /HPF 08/31/2024 3:23 PM ODD SHOE EXAMINER [facility] Urine URINE SPECIMEN OBTAINED BY SINGLE CATHETERIZATION OF URINARY BLADDER / Unknown Collection / Unknown 08/31/2024 2:54 PM ODD SHOE EXAMINER 08/31/2024 3:00 PM ODD SHOE EXAMINER [facility] - 08/31/2024 3:23 PM ODD SHOE EXAMINER Reina Ma MD LAB - URINALYSIS ORD ERABLES Performing Organization Address City/[facility]/ZIP Co de Phone Number [facility] [address] [place] [address], [facility] [phone] * CULTURE URINE (08/31/2024 2:54 PM ODD SHOE EXAMINER) Culture Urine No growth (<100 CFU/mL) KRISTIN 09/01/2024 9:37 PM ODD SHOE EXAMINER [facility] MICRO[facility] Urine URINE SPECIMEN OBTAINED BY SINGLE CATHETERIZATION OF URINARY BLADDER / Unknown Collection / Unknown 08/31/2024 2:54 PM ODD SHOE EXAMINER 08/31/2024 3:00 PM ODD SHOE EXAMINER Reina Ma MD LAB - MICROBIOLOGY O RDERABLES [facility] [address] [place] [address], [facility] [phone] * URINE DRUG SCREEN IMMUNOASSAY (08/31/2024 2:54 PM ODD SHOE EXAMINER) Amphetamines Screen Urine Negative Negative: < 1000 ng/mL 08/31/2024 3:25 PM ODD SHOE EXAMINER [facility] Barbiturates Screen Urine Negative Negative: < 200 ng/mL 08/31/2024 3:25 PM [facility] Benzodiazepine Screen Urine Negative Negative: < 200 ng/mL 08/31/2024 3:25 PM [facility] Opiates Urine Negative Negative: < 300 ng/mL 08/31/2024 3:25 PM [facility] Cocaine Metabolites Urine Negative Negative: < 300 ng/mL 08/31/2024 3:25 PM [facility] Phencyclidine Screen Urine Negative Negative: < 25 ng/ml 08/31/2024 3:25 PM [facility] Cannabinoids Screen Urine Negative Negative: <50 ng/mL 08/31/2024 3:25 PM [facility] Methadone Screen Urine Negative Negative: < 300 ng/mL 08/31/2024 3:25 PM [facility] Fentanyl Screen Urine Negative Negative: <1.5 ng/mL 08/31/2024 3:25 PM [facility] Urine URINE / Unknown Collection / Unknown 08/31/2024 2:54 PM ODD SHOE EXAMINER 08/31/2024 3:00 PM [facility] Narrative [facility] - 08/31/2024 3:25 PM ODD SHOE EXAMINER The Urine Toxicology Screening Panel does not screen for Propoxyphene, Meprobamate, Carisoprodol, Trazodone, [id number]-[id number]-[id number] medications and/or volatiles (Acetone, Isopropanol, Methanol or Ethylene Glycol). Ethanol, Salicylate, Acetaminophen, Tricyclic Antidepressants and several therapeutic drugs may be individually assayed in serum or plasma specimen. Toxicology testing by the [facility] is an aid to medical diagnosis and treatment of patients. No documented chain of custody was maintained. Results are intended to be used for clinical purposes only. Reina Ma MD LAB - URINE CHEMISTR Y ORDERABLES [facility] [address] [place] [phone], [facility] [phone] * EKG 12-LEAD (08/31/2024 11:06 AM ODD SHOE EXAMINER) Ventricular Rate 76 BPM [facility] Atrial Rate 76 BPM [facility] P-R Interval 384 ms [facility] QRS Duration ms 160 ms [facility] Q-T Interval ms 432 ms [facility] QTC Calculation (Bezet) 486 ms [facility] Calculated R [place] -92 degrees [facility] Calculated T [place] 43 degrees [facility] Interpretation EKG SINUS RHYTHM WITH 1ST DEGREE A-V BLOCK RIGHT BUNDLE BRANCH BLOCK ABNORMAL ECG NO PREVIOUS ECGS AVAILABLE Confirmed by KOLE GOODEN MD ([id number]) on 08/31/2024 5:06:06 PM [facility] 08/31/2024 11:0 6 AM ODD SHOE EXAMINER 08/31/2024 5:06 PM ODD SHOE EXAMINER Ayan Livingston MD ECG ORDERABLES Performing Organization Address [facility] Co de Phone Number [facility] * (ABNORMAL) PTT [facility] (08/31/2024 11:02 AM ODD SHOE EXAMINER) APTT 40.4(H) 23.0 - 38.4 Seconds 08/31/2024 11:30 AM [facility] Comment:Suggested therapeuti c range for full dose I.V. unfractionated heparin therapy for venous thromboembolism is 71 to 109 seconds. Blood BLOOD SPECIMEN / Unknown Venipuncture / Unknown 08/31/2024 11:02 AM ODD SHOE EXAMINER 08/31/2024 11:10 AM ODD SHOE EXAMINER Reina Ma MD LAB - COAGULATION OR DERABLES Performing Organization Address [facility] Co de Phone Number [address] [address], [facility] [phone] * (ABNORMAL) PT-INR [facility] (08/31/2024 11:02 AM ODD SHOE EXAMINER) PT 18.3(H) 12.1 - 14.8 Seconds 08/31/2024 11:30 AM [facility] INR 1.6 See Comment 08/31/2024 11:30 AM [facility] Comment:The suggested therap eutic range for standard coumadin (warfarin) therapy is an INR of 2.0-3.0. For high-risk patients (Mechanical Mitral Valve Prosthesis, etc.), the suggested prophylactic therapeutic range is an INR of 2.5-3.5. Blood BLOOD SPECIMEN / Unknown Venipuncture / Unknown 08/31/2024 11:02 AM ODD SHOE EXAMINER 08/31/2024 11:10 AM ODD SHOE EXAMINER Ayan Livingston MD LAB - COAGULATION OR DERABLES Performing Organization Address [facility] Co de Phone Number [address] [address], [place] [phone] * TYPE + SCREEN PANEL (08/31/2024 11:02 AM ODD SHOE EXAMINER) [facility] Antibody Screen NEG 11:44 AM [facility] LAB ABO Rh A POS 08/31/2024 11:44 AM [facility] Blood Bank BLOOD SPECIMEN / Unknown Venipuncture / Unknown 08/31/2024 11:02 AM ODD SHOE EXAMINER 08/31/2024 11:08 AM [facility] Ayan Livingston MD LAB - BLOOD BANK ORD ERABLES [facility] BLOOD BANK LAB [address] [place] [address], [facility] [phone] * (ABNORMAL) COMPREHENSIVE METABOLIC PANEL (08/31/2024 11:02 AM [facility]) [facility] BUN 28(H) 7 - 26 mg/dL 08/31/2024 11:36 AM [facility] Creatinine 0.79 0.56 - 0.96 mg/dL 08/31/2024 11:36 AM [facility] Sodium 140 136 - 145 mmol/L 08/31/2024 11:36 AM [facility] Potassium 4.2 3.5 - 4.5 mmol/L 08/31/2024 11:36 AM [facility] Chloride 113(H) 98 - 107 mmol/L 08/31/2024 11:36 AM [facility] CO2 25 22 - 29 mmol/L 08/31/2024 11:36 AM [facility] Glucose 87 70 - 99 mg/dL 08/31/2024 11:36 AM [facility] Calcium 9.5 8.4 - 10.2 mg/dL 08/31/2024 11:36 AM [facility] Protein Total 6.4 6.0 - 8.3 g/dL 08/31/2024 11:36 AM [facility] Albumin 3.4 3.4 - 5.0 g/dL 08/31/2024 11:36 AM [facility] Bilirubin Total 0.2 0.2 - 1.2 mg/dL 08/31/2024 11:36 AM [facility] Alkaline Phosphatase 103 40 - 150 U/L 08/31/2024 11:36 AM [facility] ALT 23 5 - 55 U/L 08/31/2024 11:36 AM [facility] AST 22 5 - 34 U/L 08/31/2024 11:36 AM [facility] Anion Gap 2(L) 6 - 16 08/31/2024 11:36 AM [facility] BUN/Creatinine Ratio 35(H) 7 - 23 08/31/2024 11:36 AM [facility] Osmolality Calculated 295 275 - 295 mOsm/kg 08/31/2024 11:36 AM [facility] Albumin/Globulin Ratio 1.1 1.1 - 2.3 08/31/2024 11:36 AM [facility] eGFR by CKD-EPI 77(L) >=90 mL/min/1.7 3 m2 08/31/2024 11:36 AM [facility] Blood BLOOD SPECIMEN / Unknown Venipuncture / Unknown 08/31/2024 11:02 AM ODD SHOE EXAMINER 08/31/2024 11:10 AM ODD SHOE EXAMINER Ayan Livingston MD [facility] Organization Address City/State/ZIP Co de Phone Number [facility] [address] [place] [id number], [facility] [phone] * CT ANGIO BRAIN NECK STROKE (08/31/2024 11:00 AM ODD SHOE EXAMINER) Anatomical Region Laterality Modality Head Computed Tomogra phy 08/31/2024 11:2 3 AM ODD SHOE EXAMINER Impressions 08/31/2024 12:09 PM ODD SHOE EXAMINER IMPRESSION: 1. No large arterial occlusions or significant stenoses identified in the head or neck. 2. Multiple bilateral inferior lobar thyroid nodules measuring up to 1 cm. This preliminary report was dictated by Demar Elkins MD (DR/IR Resident). I, Loren Marin MD have personally reviewed and interpreted this examination/study. > Interpreting Provider: Loren Marin MD on 08/31/2024 12:09 PM Narrative 08/31/2024 12:09 PM ODD SHOE EXAMINER PROCEDURE: CT ANGIO BRAIN NECK STROKE, DATE/TIME OF EXAM: 08/31/2024 11:00 AM, LOCATION [facility] INDICATION: Code Stroke ADDITIONAL CLINICAL INFORMATION: [...] DATE/TIME OF EXAM: 08/31/2024 11:00 AM, LOCATION [facility] INDICATION: Code Stroke ADDITIONAL CLINICAL INFORMATION: [...] OF CARE (IP) STROKE (08/31/2024 10:53 AM ODD SHOE EXAMINER) INR 1.2 0.9 - 1.2 08/31/2024 10:54 AM [facility] Device [id number] 08/31/2024 10:54 AM [facility] Lead Generation Specialist ID [id number] 08/31/2024 10:54 AM [facility] Blood BLOOD SPECIMEN / Unknown 08/31/2024 10:53 AM ODD SHOE EXAMINER 08/31/2024 10:54 AM ODD SHOE EXAMINER Provider Unknown LAB - POINT OF CARE ORDERABLES [facility] [address] [place] [address], [facility] [phone] * CREATININE - POCT INTERFACED (08/31/2024 10:53 AM ODD SHOE EXAMINER) Creatinine POCT 0.56 0.30 - 1.30 mg/dL 08/31/2024 11:00 AM [facility] eGFR >90 >=90 mL/min/1.7 3 m2 08/31/2024 11:00 AM [facility] Blood BLOOD SPECIMEN / Unknown 08/31/2024 10:53 AM ODD SHOE EXAMINER 08/31/2024 11:00 AM ODD SHOE EXAMINER Provider Unknown LAB - POINT OF CARE ORDERABLES [facility] [address] [place] [address], [place] [phone] * CT BRAIN - Stroke (08/31/2024 10:50 AM ODD SHOE EXAMINER) Anatomical Region Laterality Modality Head Computed Tomogra phy 08/31/2024 11:0 4 AM ODD SHOE EXAMINER Impressions 08/31/2024 11:09 AM ODD SHOE EXAMINER IMPRESSION: 1. A small amount of hyperattenuation [...] 08/31/2024 11:09 AM Narrative 08/31/2024 11:09 AM ODD SHOE EXAMINER PROCEDURE: CT BRAIN STROKE, DATE/TIME OF EXAM: 08/31/2024 10:50 AM, LOCATION [facility] INDICATION: Code Stroke ADDITIONAL CLINICAL INFORMATION: [...] DATE/TIME OF EXAM: 08/31/2024 10:50 AM, LOCATION [facility] INDICATION: Code Stroke ADDITIONAL CLINICAL INFORMATION: [...] 11:09 AM Ayan Livingston MD CT ORDERABLES Care Teams Industrial Production Manager Relationship Specialty Start Date End Date Provider, No Pcp PCP - General 08/30/24
--- OUTSIDE RECORDS SUMMARY | 2024-11-03 12:21 | XMS_ITS | Referral Summary ---
Author Organization [facility] [address] Address [address] [place] [address] Care Team Providers Care Teachers' Aide Name Role Phone Angélica Horton NP Primary Care Provider [phone] Allergies Active Allergy Reactions Criticality Noted Date [...] 3 Active vitamins A,C,E-zinc-mayela er (ICAPS) 14,320-226-200 kmdg-mj-dwar capsule Take by mouth Active cholecalciferol (VITAMIN D-3) 17754 unit tablet Take 2,000 Units by mouth [...] has not been ordered yet. 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
== END 2024-11-03 12:19 | disposition home or self-care (01) ==
PROVIDERS: PCP Nurse Practitioner Family; Visit Provider Nurse Practitioner Family
DX: E04.2 Nontoxic multinodular goiter (principal)
CPT/HCPCS: 76536

== ENCOUNTER 2024-11-23 15:39 | Outpatient (CLI) | payer MEDICARE, SELFPAY ==
[2024-11-23 15:48] LABS: Basophils Absolute Auto 0.05 K/mm3 (0.00-0.10); Basophils Percent Auto 0.6 % (0.0-1.0); Eosinophils Absolute Auto 0.15 K/mm3 (0.02-0.50); Eosinophils Percent Auto 1.9 % (1.0-6.0); Hematocrit 31.9 % (35.0-42.0); Hemoglobin 9.6 g/dL (11.7-13.8); Immature Granulocyte Absolute 0.05 K/mm3 (0.00-0.00); Immature Granulocyte Percent A 0.6 % (0.0-0.0); Lymphocytes Absolute Auto 2.52 K/mm3 (1.10-4.50); Lymphocytes Percent Auto 31.5 % (18.0-42.0); Mean Corpuscular HGB Conc 30.1 g/dL (32-36); Mean Corpuscular Hemoglobin 25.7 pg (27.0-31.0); Mean Corpuscular Volume 85.3 fL (78.0-102.0); Mean Platelet Volume 8.9 fl (9.2-11.8); Monocytes Absolute Auto 0.93 K/mm3 (0.10-0.90); Monocytes Percent Auto 11.6 % (2.0-11.0); Neutrophils Absolute Auto 4.29 K/mm3 (1.70-7.20); Neutrophils Percent Auto 53.8 % (50.0-70.0); Platelet Count Result 289 K/mm3 (150-420); Red Blood Count 3.74 M/mm3 (4.20-5.40); Red Cell Distribution Width 20.9 % (11.6-14.4)
[2024-11-23 16:24] LABS: Hemoglobin A1C 7.2 % (<5.7)
[2024-11-23 16:52] LABS: Alanine Aminotransferase 83 U/L (14-59); Albumin Level 3.5 g/dL (3.4-5.0); Alkaline Phosphatase 137 U/L (46-116); Anion Gap 7 mmol/L (4-12); Aspartate Amino Transferase 44 U/L (15-37); Bilirubin,Total 0.3 mg/dL (0.00-1.00); Blood Urea Nitrogen 40 mg/dL (7-18); Calcium 9.5 mg/dL (8.5-10.1); Carbon Dioxide 28 mmol/L (21-32); Chloride 108 mmol/L (98-108); Estimated Glomerular Filt Rate 46; Glucose 84 mg/dL (70-99); Iron 76 ug/dL (50-170); Magnesium 2.3 mg/dL (1.8-2.4); Osmolality Calculated 304 mOsm/kg (285-295); Percent Iron Saturation 19 % (12-57); Potassium 5.1 mmol/L (3.5-5.1); Sodium 143 mmol/L (136-145); Total Protein 6.8 g/dL (6.4-8.2); Vitamin B12 400 pg/mL (193-986)
--- OUTSIDE RECORDS SUMMARY | 2024-11-23 17:32 | XMS_ITS | Clinical Summary ---
Author Organization [facility] [address] Address [address] [place] [address] Care Team Providers Care Casing Splitter Name Role Phone Angélica Horton NP Primary Care Provider [phone] Allergies Active Allergy Reactions Criticality Noted Date [...] 3 Active vitamins A,C,E-zinc-mayela er (ICAPS) 14,320-226-200 lvit-pv-nacp capsule Take by mouth Active cholecalciferol (VITAMIN D-3) 00372 unit tablet Take 2,000 Units by mouth [...] has not been ordered yet. 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
--- OUTSIDE RECORDS SUMMARY | 2024-11-23 17:32 | XMS_ITS | Clinical Summary ---
Author Organization [facility] Address [address] [place] [address] Care Team Providers Care Hi Ranger Operator Name Role Phone Provider, No Pcp Primary Care Provider Unavailab le Source Comments [facility],non-owned Affiliates and Associated Physician Practices is amultiple site organization consisting of ambulatory clinics and hospital sitesin [place], [place], [place] and [place]. This disclosure is being madepursuant to the Care Everywhere program and may not contain all information available regarding this patient. 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) ; Primary hypertension; Longstanding persistent atrial fibrillation (HCC); Type 2 diabetes mellitus without complication, without long-term current use of insulin (HCC) 08/31/2024 10:40 AM MACHINE ASSEMBLER SUPERVISOR - 09/03/2024 2:12 PM MACHINE ASSEMBLER SUPERVISOR Hospital Encounter [facility] 5N ACUTE [address] [place] [id number] Austin Stapleton MD Esechie, Aimalohi, MD Linares, [...] Recorded Patient Health Questionnaire-2 Score 0 09/03/2024 [facility] - [...] any time in the past 12 m [facility], were you homeless or living in a chcf (including now)? No 08/31/2024 Sex and Gender Information Value Date Recorded Sex Assigned at Not on file Gender Identity Not on file Sexual Orientation Not on file Last Filed Vital Signs Vital Sign Reading Time Taken Comments Blood Pressure 141/70 09/03/2024 8:04 AM MACHINE ASSEMBLER SUPERVISOR Pulse 105 09/03/2024 8:04 AM MACHINE ASSEMBLER SUPERVISOR Temperature 36.6 C (97.9 F) 09/03/2024 8:04 AM MACHINE ASSEMBLER SUPERVISOR Respiratory Rate 18 09/03/2024 8:04 AM MACHINE ASSEMBLER SUPERVISOR Oxygen Saturation 100% 09/03/2024 8:04 AM MACHINE ASSEMBLER SUPERVISOR Inhaled Oxygen Concentration - - Weight 56.7 kg (125 lb) 09/01/2024 8:07 PM MACHINE ASSEMBLER SUPERVISOR Height 162.6 cm (5' 4 ) 09/01/2024 8:07 PM MACHINE ASSEMBLER SUPERVISOR Body Mass Index 21.46 09/01/2024 8:07 PM MACHINE ASSEMBLER SUPERVISOR Plan of Treatment Health Maintenance Due Date [...] complete this topic MENINGOCOCCAL (Group B) VACCINE SHARED DECISION-MAKING Aged Out No longer eligible based on patient's age to complete this topic MENINGOCOCCAL GROUPS A/C/Y/W VACCINE Aged Out No longer eligible based on patient's age to complete this topic Procedures Procedure Name Priority Date/Time Associated Diagnosis Comments GLUCOSE - POINT OF CARE Routine 09/03/2024 12:25 PM MACHINE ASSEMBLER SUPERVISOR PHOSPHORUS BLOOD Routine 09/03/2024 2:10 AM MACHINE ASSEMBLER SUPERVISOR 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) MAGNESIUM BLOOD Routine 09/03/2024 2:10 AM MACHINE ASSEMBLER SUPERVISOR 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) CBC W AUTO DIFFERENTIAL Routine 09/03/2024 2:10 AM MACHINE ASSEMBLER SUPERVISOR 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) BASIC METABOLIC PANEL (CALCIUM TOTAL) Routine 09/03/2024 2:10 AM MACHINE ASSEMBLER SUPERVISOR 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) GLUCOSE - POINT OF CARE Routine 09/02/2024 11:25 PM MACHINE ASSEMBLER SUPERVISOR GLUCOSE - POINT OF CARE Routine 09/02/2024 9:19 PM MACHINE ASSEMBLER SUPERVISOR MRI BRAIN WO CONTRAST Routine 09/02/2024 4:44 PM MACHINE ASSEMBLER SUPERVISOR 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) GLUCOSE - POINT OF CARE Routine 09/02/2024 11:58 AM MACHINE ASSEMBLER SUPERVISOR VAS BILATERAL VENOUS DUPLEX LE Routine 09/02/2024 11:36 AM MACHINE ASSEMBLER SUPERVISOR Acute deep vein thrombosis (DVT) of distal vein of left lower extremity (HCC) GLUCOSE - POINT OF CARE Routine 09/02/2024 3:55 AM MACHINE ASSEMBLER SUPERVISOR CBC W AUTO DIFFERENTIAL Routine 09/02/2024 1:56 AM MACHINE ASSEMBLER SUPERVISOR 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) PHOSPHORUS BLOOD Routine 09/02/2024 1:55 AM MACHINE ASSEMBLER SUPERVISOR 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) MAGNESIUM BLOOD Routine 09/02/2024 1:55 AM MACHINE ASSEMBLER SUPERVISOR 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) BASIC METABOLIC PANEL (CALCIUM TOTAL) Routine 09/02/2024 1:55 AM MACHINE ASSEMBLER SUPERVISOR 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) GLUCOSE - POINT OF CARE Routine 09/01/2024 11:57 PM MACHINE ASSEMBLER SUPERVISOR GLUCOSE - POINT OF CARE Routine 09/01/2024 8:07 PM MACHINE ASSEMBLER SUPERVISOR GLUCOSE - POINT OF CARE Routine 09/01/2024 4:05 PM MACHINE ASSEMBLER SUPERVISOR GLUCOSE - POINT OF CARE Routine 09/01/2024 11:21 AM MACHINE ASSEMBLER SUPERVISOR GLUCOSE - POINT OF CARE Routine 09/01/2024 7:57 AM MACHINE ASSEMBLER SUPERVISOR GLUCOSE - POINT OF CARE Routine 09/01/2024 3:52 AM MACHINE ASSEMBLER SUPERVISOR PHOSPHORUS BLOOD Routine 09/01/2024 1:42 AM MACHINE ASSEMBLER SUPERVISOR 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) MAGNESIUM BLOOD Routine 09/01/2024 1:42 AM MACHINE ASSEMBLER SUPERVISOR 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) CBC W AUTO DIFFERENTIAL Routine 09/01/2024 1:42 AM MACHINE ASSEMBLER SUPERVISOR 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) BASIC METABOLIC PANEL (CALCIUM TOTAL) Routine 09/01/2024 1:42 AM MACHINE ASSEMBLER SUPERVISOR 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) GLUCOSE - POINT OF CARE Routine 09/01/2024 12:18 AM MACHINE ASSEMBLER SUPERVISOR GLUCOSE - POINT OF CARE Routine 08/31/2024 9:27 PM MACHINE ASSEMBLER SUPERVISOR GLUCOSE - POINT OF CARE Routine 08/31/2024 6:32 PM MACHINE ASSEMBLER SUPERVISOR GLUCOSE - POINT OF CARE Routine 08/31/2024 5:44 PM MACHINE ASSEMBLER SUPERVISOR BLOOD TYPE VERIFICATION STAT 08/31/2024 4:12 PM MACHINE ASSEMBLER SUPERVISOR HEMOGLOBIN A1C Add on 08/31/2024 4:12 PM MACHINE ASSEMBLER SUPERVISOR 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) TROPONIN-I HIGH SENSITIVE BASELINE + 1HR Add on 08/31/2024 4:12 PM MACHINE ASSEMBLER SUPERVISOR 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) GLUCOSE - POINT OF CARE Routine 08/31/2024 3:01 PM MACHINE ASSEMBLER SUPERVISOR URINALYSIS REFLEX TO MICROSCOPIC NO CULTURE STAT 08/31/2024 2:54 PM MACHINE ASSEMBLER SUPERVISOR URINE DRUG SCREEN IMMUNOASSAY STAT 08/31/2024 2:54 PM MACHINE ASSEMBLER SUPERVISOR 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) CULTURE URINE STAT 08/31/2024 2:54 PM MACHINE ASSEMBLER SUPERVISOR EKG 12-LEAD STAT 08/31/2024 11:06 AM MACHINE ASSEMBLER SUPERVISOR Generalized weakness TYPE + SCREEN PANEL STAT 08/31/2024 1 1:02 AM MACHINE ASSEMBLER SUPERVISOR PTT [facility] Routine 08/31/2024 11:02 AM MACHINE ASSEMBLER SUPERVISOR 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) PT-INR [facility] STAT 08/31/2024 11:02 AM MACHINE ASSEMBLER SUPERVISOR COMPREHENSIVE METABOLIC PANEL STAT 08/31/2024 11:02 AM MACHINE ASSEMBLER SUPERVISOR CBC W AUTO DIFFERENTIAL STAT 08/31/2024 11:02 AM MACHINE ASSEMBLER SUPERVISOR CT ANGIO BRAIN NECK STROKE STAT 08/31/2024 11:00 AM MACHINE ASSEMBLER SUPERVISOR Generalized weakness CREATININE - POCT INTERFACED Routine 08/31/2024 10:53 AM MACHINE ASSEMBLER SUPERVISOR INR WHOLE BLOOD - POINT OF CARE (IP) STROKE Routine 08/31/2024 10:53 AM MACHINE ASSEMBLER SUPERVISOR CT BRAIN STROKE STAT 08/31/2024 10:50 AM MACHINE ASSEMBLER SUPERVISOR Generalized weakness GLUCOSE - POINT OF CARE Routine 08/31/2024 10:45 AM MACHINE ASSEMBLER SUPERVISOR from Last 3 Months Results * (ABNORMAL) GLUCOSE - POINT OF CARE (09/03/2024 12:25 PM MACHINE ASSEMBLER SUPERVISOR) Only the most recent of17 resultswithin the time period is included. [facility] Glucose WB/POC 168(H) 70 - 99 mg/dL 09/03/2024 2:56 PM MACHINE ASSEMBLER SUPERVISOR [facility] Specimen Type Arterial 09/03/2024 2:56 PM MACHINE ASSEMBLER SUPERVISOR [facility] Blood BLOOD SPECIMEN / Unknown 09/03/2024 12:25 PM MACHINE ASSEMBLER SUPERVISOR 09/03/2024 2:56 PM MACHINE ASSEMBLER SUPERVISOR Reina Ma MD LAB - POINT OF CARE ORDERABLES [address] [address], [facility] [phone] * (ABNORMAL) CBC W AUTO DIFFERENTIAL (09/03/2024 2:10 AM MACHINE ASSEMBLER SUPERVISOR) Only the most recent of4 resultswithin the time period is included. [facility] WBC 9.3 4.0 - 10.7 x10E9/L 09/03/2024 3:08 AM [facility] RBC Count 3.38(L) 3.90 - 5.20 x10E12/L 09/03/2024 3:08 AM [facility] Hemoglobin 9.0(L) 11.9 - 15.8 g/dL 09/03/2024 3:08 AM [facility] Hematocrit 28.4(L) 34.8 - 46.1 % 09/03/2024 3:08 AM [facility] MCV 84.0 80.0 - 98.0 fL 09/03/2024 3:08 AM [facility] MCH 26.6(L) 26.7 - 33.6 pg 09/03/2024 3:08 AM [facility] MCHC 31.7 31.7 - 36.3 g/dL 09/03/2024 3:08 AM [facility] RDW-CV 15.0(H) 11.3 - 14.8 % 09/03/2024 3:08 AM [facility] Platelet Count 356 150 - 420 x10E9/L 09/03/2024 3:08 AM [facility] MPV 9.6 7.8 - 11.4 fL 09/03/2024 3:08 AM [facility] Neutrophil % 56.8 41.0 - 74.0 % 09/03/2024 3:08 AM [facility] Lymphocyte % 28.1 17.0 - 47.0 % 09/03/2024 3:08 AM [facility] Monocyte % 11.5(H) 3.0 - 11.0 % 09/03/2024 3:08 AM [facility] Eosinophil % 2.8 0.0 - 7.0 % 09/03/2024 3:08 AM [facility] Basophil % 0.4 0.0 - 1.6 % 09/03/2024 3:08 AM [facility] Immature Granulocytes % 0.4 0.0 - 1.0 % 09/03/2024 3:08 AM [facility] Neutrophil Absolute 5.27 1.60 - 7.50 x10E9/L 09/03/2024 3:08 AM [facility] Lymphocyte Absolute 2.61 1.00 - 4.40 x10E9/L 09/03/2024 3:08 AM [facility] Monocyte Absolute 1.07(H) 0.15 - 1.00 x10E9/L 09/03/2024 3:08 AM [facility] Eosinophil Absolute 0.26 0.00 - 0.60 x10E9/L 09/03/2024 3:08 AM [facility] Basophil Absolute 0.04 0.00 - 0.13 x10E9/L 09/03/2024 3:08 AM [facility] Blood BLOOD SPECIMEN / Unknown Lab Venipuncture / Unknown 09/03/2024 2:10 AM MACHINE ASSEMBLER SUPERVISOR 09/03/2024 3:02 AM MACHINE ASSEMBLER SUPERVISOR Reina Ma MD LAB - HEMATOLOGY ORD ERABLES [facility] [address] [place] [address], [facility] [phone] * (ABNORMAL) BASIC METABOLIC PANEL (CALCIUM TOTAL) (09/03/2024 2:10 AM MACHINE ASSEMBLER SUPERVISOR) Only the most recent of3 resultswithin the time period is included. BUN 26 7 - 26 mg/dL 09/03/2024 3:29 AM [facility] Creatinine 0.87 0.56 - 0.96 mg/dL 09/03/2024 3:29 AM [facility] Sodium 139 136 - 145 mmol/L 09/03/2024 3:29 AM [facility] Potassium 4.6(H) 3.5 - 4.5 mmol/L 09/03/2024 3:29 AM [facility] Chloride 109(H) 98 - 107 mmol/L 09/03/2024 3:29 AM [facility] CO2 22 22 - 29 mmol/L 09/03/2024 3:29 AM [facility] Glucose 125(H) 70 - 99 mg/dL 09/03/2024 3:29 AM [facility] Calcium 8.9 8.4 - 10.2 mg/dL 09/03/2024 3:29 AM [facility] Anion Gap 8 6 - 16 09/03/2024 3:29 AM [facility] BUN/Creatinine Ratio 30(H) 7 - 23 09/03/2024 3:29 AM [facility] Osmolality Calculated 294 275 - 295 mOsm/kg 09/03/2024 3:29 AM [facility] eGFR by CKD-EPI 69(L) >=90 mL/min/1.7 3 m2 09/03/2024 3:29 AM [facility] Blood BLOOD SPECIMEN / Unknown Lab Venipuncture / Unknown 09/03/2024 2:10 AM MACHINE ASSEMBLER SUPERVISOR 09/03/2024 3:02 AM MACHINE ASSEMBLER SUPERVISOR Reina Ma MD LAB - CHEMISTRY JONG [facility]UNHAM Performing Organization Address City/[facility]/ZIP Co de Phone Number [address] [address], [facility] [phone] * PHOSPHORUS BLOOD (09/03/2024 2:10 AM MACHINE ASSEMBLER SUPERVISOR) Only the most recent of3 resultswithin the time period is included. Phosphorus 3.1 2.9 - 5.1 mg/dL 09/03/2024 3:29 AM MACHINE ASSEMBLER SUPERVISOR [facility] Blood BLOOD SPECIMEN / Unknown Lab Venipuncture / Unknown 09/03/2024 2:10 AM MACHINE ASSEMBLER SUPERVISOR 09/03/2024 3:02 AM MACHINE ASSEMBLER SUPERVISOR Reina Ma MD LAB - CHEMISTRY JONG DUNHAM Performing Organization Address [facility]/ZIP Co de Phone Number [address] [address], [facility] [phone] * MAGNESIUM BLOOD (09/03/2024 2:10 AM MACHINE ASSEMBLER SUPERVISOR) Only the most recent of3 resultswithin the time period is included. Magnesium 2.2 1.6 - 2.6 mg/dL 09/03/2024 3:29 AM MACHINE ASSEMBLER SUPERVISOR [facility] Blood BLOOD SPECIMEN / Unknown Lab Venipuncture / Unknown 09/03/2024 2:10 AM MACHINE ASSEMBLER SUPERVISOR 09/03/2024 3:02 AM MACHINE ASSEMBLER SUPERVISOR Reina Ma MD LAB - CHEMISTRY JONG DUNHAM Performing Organization Address City/[facility]/ZIP Co de Phone Number [address] [address], [facility] [phone] * MRI Brain Wo Contrast (09/02/2024 4:44 PM MACHINE ASSEMBLER SUPERVISOR) Anatomical Region Laterality Modality Head Magnetic Resonan ce 09/02/2024 4:25 PM MACHINE ASSEMBLER SUPERVISOR Impressions 09/04/2024 12:47 PM MACHINE ASSEMBLER SUPERVISOR IMPRESSION: 1. No evidence of acute infarct. [...] Report dictated by Roberto Eden MD, PhD (hvac technician residential). I, Loren Marin MD have personally reviewed and interpreted this examination/study. > Interpreting Provider: Loren Marin MD on 09/04/2024 12:47 PM Narrative 09/04/2024 12:47 PM MACHINE ASSEMBLER SUPERVISOR PROCEDURE: MRI BRAIN WO CONTRAST, DATE/TIME OF EXAM: 09/02/2024 4:44 PM, LOCATION [facility] INDICATION: I61.2: Nontraumatic hemorrhage of right cerebral [...] CONTRAST, DATE/TIME OF EXAM: 09/02/2024 4:44PM, LOCATION [facility] INDICATION: I61.2: Nontraumatic hemorrhage of right cerebral [...] Report dictated by Roberto Eden MD, PhD (hvac technician residential). I, Loren Marin MD have personally reviewed and interpreted this examination/study. > Interpreting Provider: Loren Marin MD on 09/04/2024 12:47 PM Reina Ma MD MR ORDERABLES * VAS Bilateral Venous Duplex Le (09/02/2024 11:36 AM MACHINE ASSEMBLER SUPERVISOR) Anatomical Region Laterality Modality Lower Extremity Ultrasound 09/02/2024 8:59 AM MACHINE ASSEMBLER SUPERVISOR Narrative Procedure Note Bon Garcia MD - 09/02/2024 Reina Ma MD VASCULAR LAB ORDERAB LES * TROPONIN-I HIGH SENSITIVE BASELINE + 1HR (08/31/2024 4:12 PM MACHINE ASSEMBLER SUPERVISOR) Troponin I High Sensitive <3 <=14 ng/L 08/31/2024 5:08 PM MACHINE ASSEMBLER SUPERVISOR [facility] Blood BLOOD SPECIMEN / Unknown Lab Venipuncture / Unknown 08/31/2024 4:12 PM MACHINE ASSEMBLER SUPERVISOR 08/31/2024 4:32 PM MACHINE ASSEMBLER SUPERVISOR Ayan Livingston MD LAB - CHEMISTRY ORDE ROLY [facility] [address] [place] [address], [place] [phone] * BLOOD TYPE VERIFICATION (08/31/2024 4:12 PM MACHINE ASSEMBLER SUPERVISOR) ABO Rh A POS 08/31/2024 5:1 3 PM MACHINE ASSEMBLER SUPERVISOR [facility] BLOOD BANK LAB Blood Bank BLOOD SPECIMEN / Unknown Lab Venipuncture / Unknown 08/31/2024 4:12 PM MACHINE ASSEMBLER SUPERVISOR 08/31/2024 4:40 PM MACHINE ASSEMBLER SUPERVISOR Ayan Livingston MD LAB - BLOOD BANK ORD ERAJHOAN [facility] [address] [place] [address], [place] [phone] * (ABNORMAL) HEMOGLOBIN A1C (08/31/2024 4:12 PM MACHINE ASSEMBLER SUPERVISOR) Hemoglobin A1c 6.0(H) <=5.6 % 09/01/2024 8:55 AM [facility] Estimated Average Glucose 126 mg/dL 09/01/2024 8:55 AM [facility] Comment: HbA1c Interpretation: Normal : < 5.7% Pre-diabetes: 5.7-6.4% Diabetes: Equal to or greater than 6.5% Test results diagnostic of diabetes should be repeated for confirmation. Treatment target values recommended by ADA and other clinical organizations should be used to evaluate metabolic control in patients. Reference: [place] [employer], Standards of Care in Diabetes -2020 In patients 70 years and older consider HbA1c target range of 7.0-7.5% (Reference: Davon Goldstein et al. JAMDA. 2012) The Sebia assay for the measurement of HbA1c is a National Glycohemoglobin Standardization Program (NGSP) certified method. Blood BLOOD SPECIMEN / Unknown Lab Venipuncture / Unknown 08/31/2024 4:12 PM MACHINE ASSEMBLER SUPERVISOR 08/31/2024 4:33 PM MACHINE ASSEMBLER SUPERVISOR Ayan Livingston MD LAB - CHEMISTRY [facility]ONG [facility] Organization Address City/State/ZIP Co de Phone Number [address] [address], [facility] [phone] * (ABNORMAL) URINALYSIS REFLEX TO MICROSCOPIC NO CULTURE (08/31/2024 2:54 PM MACHINE ASSEMBLER SUPERVISOR) Color UA Yellow Straw, Yellow 08/31/2024 3:23 PM [facility] Clarity UA Clear Clear 08/31/2024 3:23 PM [facility] Specific Zahl UA 1.029 1.005 - 1.030 08/31/2024 3:23 PM [facility] pH UA 5.0 5.0 - 8.0 pH 08/31/2024 3:23 PM [facility] Protein UA Negative Negative 08/31/2024 3:23 PM [facility] Glucose UA Negative Negative 08/31/2024 3:23 PM [facility] Ketone UA Negative Negative 08/31/2024 3:23 PM [facility] Bilirubin UA Negative Negative 08/31/2024 3:23 PM [facility] Blood UA Negative Negative 08/31/2024 3:23 PM [facility] Nitrite UA Negative Negative 08/31/2024 3:23 PM [facility] Leukocyte Esterase Negative Negative 08/31/2024 3:23 PM [facility] Urobilinogen UA Negative Negative mg/dL 08/31/2024 3:23 PM [facility] RBC UA 3-5 None Seen, 0-2, 3-5 /HPF 08/31/2024 3:23 PM [facility] WBC UA 6-10(A) None Seen, 0-5 /HPF 08/31/2024 3:23 PM [facility] Squamous Epithelial Cells UA 0-2 None Seen, 0-2, 3-5 /HPF 08/31/2024 3:23 PM [facility] Urine URINE SPECIMEN OBTAINED BY SINGLE CATHETERIZATION OF URINARY BLADDER / Unknown Collection / Unknown 08/31/2024 2:54 PM MACHINE ASSEMBLER SUPERVISOR 08/31/2024 3:00 PM MACHINE ASSEMBLER SUPERVISOR Narrative [facility] - 08/31/2024 3:23 PM MACHINE ASSEMBLER SUPERVISOR Reina Ma MD LAB - URINALYSIS ORD ERABLES [facility] [address] [place] [address], [place] [phone] * CULTURE URINE (08/31/2024 2:54 PM MACHINE ASSEMBLER SUPERVISOR) Culture Urine No growth (<100 CFU/mL) KRISTIN 09/01/2024 9:37 PM MACHINE ASSEMBLER SUPERVISOR [facility] MICROBIOLOGY Urine URINE SPECIMEN OBTAINED BY SINGLE CATHETERIZATION OF URINARY BLADDER / Unknown Collection / Unknown 08/31/2024 2:54 PM MACHINE ASSEMBLER SUPERVISOR 08/31/2024 3:00 PM MACHINE ASSEMBLER SUPERVISOR Reina Ma MD LAB - MICROBIOLOGY O RDERABLES [facility] MICROBIOLOGY [address] [place] [address] [phone] * URINE DRUG SCREEN IMMUNOASSAY (08/31/2024 2:54 PM MACHINE ASSEMBLER SUPERVISOR) Amphetamines Screen Urine Negative Negative: < 1000 ng/mL 08/31/2024 3:25 PM [facility] Barbiturates Screen Urine Negative Negative: < 200 ng/mL 08/31/2024 3:25 PM [facility] Benzodiazepine Screen Urine Negative Negative: < 200 ng/mL 08/31/2024 3:25 PM [facility] Opiates Urine Negative Negative: < 300 ng/mL 08/31/2024 3:25 PM [facility] Cocaine Metabolites Urine Negative Negative: < 300 ng/mL 08/31/2024 3:25 PM [facility] Phencyclidine Screen Urine Negative Negative: < 25 ng/ml 08/31/2024 3:25 PM [facility] Cannabinoids Screen Urine Negative Negative: <50 ng/mL 08/31/2024 3:25 PM [facility] Methadone Screen Urine Negative Negative: < 300 ng/mL 08/31/2024 3:25 PM [facility] Fentanyl Screen Urine Negative Negative: <1.5 ng/mL 08/31/2024 3:25 PM [facility] Urine URINE / Unknown Collection / Unknown 08/31/2024 2:54 PM MACHINE ASSEMBLER SUPERVISOR 08/31/2024 3:00 PM [facility] - 08/31/2024 3:25 PM MACHINE ASSEMBLER SUPERVISOR The Urine Toxicology Screening Panel does not screen for Propoxyphene, Meprobamate, Carisoprodol, Trazodone, etah-bgb-szrljxt medications and/or volatiles (Acetone, Isopropanol, Methanol or Ethylene Glycol). Ethanol, Salicylate, Acetaminophen, Tricyclic Antidepressants and several therapeutic drugs may be individually assayed in serum or plasma specimen. Toxicology testing by the [facility] is an aid to medical diagnosis and treatment of patients. No documented chain of custody was maintained. Results are intended to be used for clinical purposes only. Reina Ma MD LAB - URINE CHEMISTR Y ORDERABLES [facility] [address] [place] [address], [facility] [phone] * EKG 12-LEAD (08/31/2024 11:06 AM MACHINE ASSEMBLER SUPERVISOR) Pathologist [facility] Ventricular Rate 76 BPM [facility] MUSE Atrial Rate 76 BPM [facility] MUSE P-R Interval 384 ms [facility] QRS Duration ms 160 ms [facility] MUSE Q-T Interval ms 432 ms [facility] QTC Calculation (Bezet) 486 ms [facility] MUSE Calculated R [place] -92 degrees [facility] MUSE Calculated T [place] 43 degrees [facility] MUSE Interpretation EKG SINUS RHYTHM WITH 1ST DEGREE A-V BLOCK RIGHT BUNDLE BRANCH BLOCK ABNORMAL ECG NO PREVIOUS ECGS AVAILABLE Confirmed by KOLE GOODEN MD ([id number]) on 08/31/2024 5:06:06 PM [facility] MUSE 08/31/2024 11:0 6 AM MACHINE ASSEMBLER SUPERVISOR 08/31/2024 5:06 PM MACHINE ASSEMBLER SUPERVISOR Ayan Livingston MD ECG ORDERABLES Performing Organization Address City/[facility]/ZIP Co de Phone Number [facility] * (ABNORMAL) PTT [facility] (08/31/2024 11:02 AM MACHINE ASSEMBLER SUPERVISOR) [facility] APTT 40.4(H) 23.0 - 38.4 Seconds 08/31/2024 11:30 AM MACHINE ASSEMBLER SUPERVISOR [facility] Comment:Suggested therapeuti c range for full dose I.V. unfractionated heparin therapy for venous thromboembolism is 71 to 109 seconds. Blood BLOOD SPECIMEN / Unknown Venipuncture / Unknown 08/31/2024 11:02 AM MACHINE ASSEMBLER SUPERVISOR 08/31/2024 11:10 AM MACHINE ASSEMBLER SUPERVISOR Reina Ma MD LAB - COAGULATION OR DERABLES [facility] [address] [place] [address], [facility] [phone] * (ABNORMAL) PT-INR [facility] (08/31/2024 11:02 AM MACHINE ASSEMBLER SUPERVISOR) [facility] PT 18.3(H) 12.1 - 14.8 Seconds 08/31/2024 11:30 AM [facility] INR 1.6 See Comment 08/31/2024 11:30 AM [facility] Comment:The suggested therap eutic range for standard coumadin (warfarin) therapy is an INR of 2.0-3.0. For high-risk patients (Mechanical Mitral Valve Prosthesis, etc.), the suggested prophylactic therapeutic range is an INR of 2.5-3.5. Blood BLOOD SPECIMEN / Unknown Venipuncture / Unknown 08/31/2024 11:02 AM MACHINE ASSEMBLER SUPERVISOR 08/31/2024 11:10 AM MACHINE ASSEMBLER SUPERVISOR Ayan Livingston MD LAB - COAGULATION OR DERABLES Performing Organization Address City/[facility]/ZIP Co de Phone Number [address] [address], [facility] [phone] * TYPE + SCREEN PANEL (08/31/2024 11:02 AM MACHINE ASSEMBLER SUPERVISOR) Antibody Screen NEG 11:44 AM [facility] BLOOD BANK LAB ABO Rh A POS 08/31/2024 11:44 AM [facility] BLOOD BANK LAB Blood Bank BLOOD SPECIMEN / Unknown Venipuncture / Unknown 08/31/2024 11:02 AM MACHINE ASSEMBLER SUPERVISOR 08/31/2024 11:08 AM MACHINE ASSEMBLER SUPERVISOR Ayan Livingston MD LAB - BLOOD BANK ORD ERABLES Performing Organization Address [facility] [facility]/ZIP Co de Phone Number [facility] BLOOD BANK LAB [address] [place] [address], [facility] [phone] * (ABNORMAL) COMPREHENSIVE METABOLIC PANEL (08/31/2024 11:02 AM MACHINE ASSEMBLER SUPERVISOR) BUN 28(H) 7 - 26 mg/dL 08/31/2024 11:36 AM [facility] Creatinine 0.79 0.56 - 0.96 mg/dL 08/31/2024 11:36 AM [facility] Sodium 140 136 - 145 mmol/L 08/31/2024 11:36 AM [facility] Potassium 4.2 3.5 - 4.5 mmol/L 08/31/2024 11:36 AM [facility] Chloride 113(H) 98 - 107 mmol/L 08/31/2024 11:36 AM [facility] CO2 25 22 - 29 mmol/L 08/31/2024 11:36 AM [facility] Glucose 87 70 - 99 mg/dL 08/31/2024 11:36 AM [facility] Calcium 9.5 8.4 - 10.2 mg/dL 08/31/2024 11:36 AM [facility] Protein Total 6.4 6.0 - 8.3 g/dL 08/31/2024 11:36 AM [facility] Albumin 3.4 3.4 - 5.0 g/dL 08/31/2024 11:36 AM [facility] Bilirubin Total 0.2 0.2 - 1.2 mg/dL 08/31/2024 11:36 AM [facility] Alkaline Phosphatase 103 40 - 150 U/L 08/31/2024 11:36 AM [facility] ALT 23 5 - 55 U/L 08/31/2024 11:36 AM [facility] AST 22 5 - 34 U/L 08/31/2024 11:36 AM [facility] Anion Gap 2(L) 6 - 16 08/31/2024 11:36 AM [facility] BUN/Creatinine Ratio 35(H) 7 - 23 08/31/2024 11:36 AM [facility] Osmolality Calculated 295 275 - 295 mOsm/kg 08/31/2024 11:36 AM [facility] Albumin/Globulin Ratio 1.1 1.1 - 2.3 08/31/2024 11:36 AM [facility] eGFR by CKD-EPI 77(L) >=90 mL/min/1.7 3 m2 08/31/2024 11:36 AM [facility] Blood BLOOD SPECIMEN / Unknown Venipuncture / Unknown 08/31/2024 11:02 AM [facility] 08/31/2024 11:10 AM [facility] Ayan Livingston MD LAB - CHEMISTRY JONG DUNHAM [facility] Organization Address City/State/ZIP Co de Phone Number [facility] [address] [place] [address] [phone] * CT ANGIO BRAIN NECK STROKE (08/31/2024 11:00 AM MACHINE ASSEMBLER SUPERVISOR) Anatomical Region Laterality Modality Head Computed Tomogra phy 08/31/2024 11:2 3 AM MACHINE ASSEMBLER SUPERVISOR Impressions 08/31/2024 12:09 PM MACHINE ASSEMBLER SUPERVISOR IMPRESSION: 1. No large arterial occlusions or significant stenoses identified in the head or neck. 2. Multiple bilateral inferior lobar thyroid nodules measuring up to 1 cm. This preliminary report was dictated by Demar Elkins MD (DR/IR Resident). I, Loren Marin MD have personally reviewed and interpreted this examination/study. > Interpreting Provider: Loren Marin MD on 08/31/2024 12:09 PM Narrative 08/31/2024 12:09 PM MACHINE ASSEMBLER SUPERVISOR PROCEDURE: CT ANGIO BRAIN NECK STROKE, DATE/TIME OF EXAM: 08/31/2024 11:00 AM, LOCATION [facility] INDICATION: Code Stroke ADDITIONAL CLINICAL INFORMATION: Ordering [...] DATE/TIME OF EXAM: 08/31/2024 11:00 AM, LOCATION [facility] INDICATION: Code Stroke ADDITIONAL CLINICAL INFORMATION: Ordering [...] OF CARE (IP) STROKE (08/31/2024 10:53 AM [facility]) INR 1.2 0.9 - 1.2 08/31/2024 10:54 AM [facility] Device [id number] 08/31/2024 10:54 AM [facility] Staff Training And Development Manager ID [id number] 08/31/2024 10:54 AM [facility] Blood BLOOD SPECIMEN / Unknown 08/31/2024 10:53 AM MACHINE ASSEMBLER SUPERVISOR 08/31/2024 10:54 AM [facility] Provider Unknown LAB - POINT OF CARE ORDERABLES [facility] [address] [place] [address], [facility] [phone] * CREATININE - POCT INTERFACED (08/31/2024 10:53 AM MACHINE ASSEMBLER SUPERVISOR) Creatinine POCT 0.56 0.30 - 1.30 mg/dL 08/31/2024 11:00 AM [facility] eGFR >90 >=90 mL/min/1.7 3 m2 08/31/2024 11:00 AM [facility] Blood BLOOD SPECIMEN / Unknown 08/31/2024 10:53 AM MACHINE ASSEMBLER SUPERVISOR 08/31/2024 11:00 AM MACHINE ASSEMBLER SUPERVISOR Provider Unknown LAB - POINT OF CARE ORDERABLES [facility] [address] [place] [address], [facility] [phone] * CT BRAIN - Stroke (08/31/2024 10:50 AM MACHINE ASSEMBLER SUPERVISOR) Anatomical Region Laterality Modality Head Computed Tomogra phy 08/31/2024 11:0 4 AM MACHINE ASSEMBLER SUPERVISOR Impressions 08/31/2024 11:09 AM MACHINE ASSEMBLER SUPERVISOR IMPRESSION: 1. A small amount of hyperattenuation [...] 08/31/2024 11:09 AM Narrative 08/31/2024 11:09 AM MACHINE ASSEMBLER SUPERVISOR PROCEDURE: CT BRAIN STROKE, DATE/TIME OF EXAM: 08/31/2024 10:50 AM, LOCATION [facility] INDICATION: Code Stroke ADDITIONAL CLINICAL INFORMATION: Ordering [...] effect or midline shift is seen. The edlaney-white matter differentiation is normal. Extensive periventricular white [...] DATE/TIME OF EXAM: 08/31/2024 10:50 AM, LOCATION [facility] INDICATION: Code Stroke ADDITIONAL CLINICAL INFORMATION: Ordering [...] 11:06 AM 09/03/2024 3:17 PM Care Teams Hi Ranger Operator Relationship Specialty Start Date End Date Provider, No Pcp PCP - General 08/30/24
--- OUTSIDE RECORDS SUMMARY | 2024-11-23 17:32 | XMS_ITS | Continuity of Care Document ---
Author Organization [facility] Address [address] [place] [address] Phone Care Team Providers Care Financial Planning Adviser Name Role Phone Femi Wiggins MD Unavailable [...] Diagnoses Date Provider Providers Copied on Encounter [facility], [address], [place], [place], [address], [place] tel:[phone] SEC Jason SARMIENTO Professional Diabetic eye exam (chief complaint) Type 2 diabetes mellitus without complication sPresence of intraocular lensExdtve age-rel mclr degn, right eye, with inact chrdl neovasNexdtv e age-related mclr degn, left eye, early dry stage 3 Feliciano Kahn. [address] [facility], [facility] [place], [address], [place]. tel:[phone] Referring Provider: Angelina Marroquin MD K, [address] [facility], [address], [place], [address]. tel:[phone] Office/outpa tient Visit, Est [facility], [address], [place], [place], [address], tel:[phone] SEC [place] Professional 6 month Complete (chief complaint) Presence of intraocular lensExdtve age-rel mclr degn, right eye, with inact chrdl neovasHistor y of endophthalmi tisOther secondary cataract, right eyeType 2 diabetes mellitus without complication sVitreous degeneration , bilateral Maurice- 2 Jerrica OD Denise. [facility] [employer], [address], [place], [place], [address], [place]. tel:[phone] Referring Provider: Angelina Dela Cruz, [address] [place] [address], [facility] [address], [place], [address]. tel:[phone] [facility], [facility] [address], [place], [place], [address], tel:[phone] SEC Jason SARMIENTO Professional 1 month s/p PCIOL (chief complaint) Post op visit Aug- 1 Jerrica OD Denise. [facility] [employer], [address], [place], [place], [address], [place]. tel:[phone] Referring Provider: Angelina Dela Cruz, [address] [facility], [facility] [address], [place], [address]. tel:[phone] [facility], [address], [place], [place], [address], tel:[phone] SEC Jason SARMIENTO Professional 1 wk po PCIOL OS (08/14/21) (chief complaint) Post op visit Dec-0 1 Jerrica OD Denise. [facility] [employer], [address], [place], [place], [address], . tel:[phone] Referring Provider: Angelina Dela Cruz, [address] [facility], [address], [place], [address]. tel:[phone] [facility], [address], [place], [place], [address], [place] tel:[phone] SEC [place] Professional 1 day s/p PCIOL (chief complaint) Post op visit 0 1 Jerrica BRYANT Denise. [address] [place] [address] Drive, [address], [place], [place], [address], [place]. tel:[phone] Referring Provider: Angelina Dela Cruz, [address] [facility], [facility] [address], [place], [address]. tel:[phone] [facility], [address], [place], [place], [address], [place] tel:[phone] [facility] [place] No Information 1 Feliciano Kahn. [address] [facility], [place], [address], [place]. tel:[phone] Referring Provider: Angelina Dela Cruz, [address] [place] [address], [facility] [address], [place], [address]. tel:[phone] [facility], [address], [place], [place], [address], [place] [phone] SEC [place] GUILLERMINA Professional No Information 1 Feliciano Kahn. [address] [facility], [address], [place], [place], [address], [place]. tel:[phone] Referring Provider: Angelina Dela Cruz, [address] [facility], [address], [place], [address]. tel:[phone] Office/outpa tient Visit, Est [facility], [address], [place], [place], [address], [place] [phone] SEC [place] Professional 6 month Cataract check (chief complaint) Exdtve age-rel mclr degn, right eye, with inact chrdl neovasType 2 diabetes mellitus without complication sNexdtve age-related mclr degn, left eye, early dry stageCombine d forms of age-related cataract, left eye Oct-2 1 Feliciano Kahn. [address] [facility], [address] [place], [address], [place]. tel:[phone] Referring Provider: Angelina Dela Cruz, [address] [facility], [address], [place], [address]. tel:[phone] [facility], [address], [place], [place], [address], [place] tel:[phone] SEC Jason SARMIENTO Professional 6 month Cataract check (chief complaint) Nexdtve age-related mclr degn, left eye, early dry stageExdtve age-rel mclr degn, right eye, with inact chrdl neovasPseudo phakia of right eyeAge-relat ed nuclear cataract, left eyeOther secondary cataract, right eyeVitreous degeneration , bilateralTyp e 2 diabetes mellitus without complication s Apr-2 1 Feliciano Kahn. [address] [facility], [address], [place], [place], [address], [place]. tel:[phone] Referring Provider: Angelina Dela Cruz, [address] [facility], [address], [place], [address]. tel:[phone] [facility], [address], [place], [place], [address], [place] [phone] Professional No Information Apr-0 1 Feliciano Kahn. [address] [facility], [address], [place], [place], [address], [place]. tel:[phone] Office/outpa tient Visit, Est [facility], [address] [place] [address] [address], [place], [place], [address], tel:[phone] SEC Jason SARMIENTO Professional Complete exam (chief complaint) Type 2 diabetes mellitus without complication sPseudophaki a of right eyeNexdtve age-related mclr degn, left eye, early dry stageCombine d forms of age-related cataract, left eyeOther secondary cataract, right eyeExdtve age-rel mclr degn, right eye, with inact chrdl neovas Oct-2 7202 0 Feliciano Kahn. [address] [facility], [address], [place], [place], [address], [place]. tel:[phone] Referring Provider: Angelina Dela Cruz, [address] [place] [address], [facility] [address], [place], [address]. tel:[phone] [facility], [address] [place] [address] [address], [place], [place], [address], tel:[phone] SEC Jason SARMIENTO Professional Postop PCIOL OD (11/30/19) (chief complaint) Post op visit Dec-2 202 0 Bety OD Fermín. [address] [facility], [address], [place], [address], [place]. tel:[phone] Referring Provider: Angelina Dela Cruz, [address] [place] [address], [address], [place], [address]. tel:[phone] [facility], [address] [place] [address] [address], [place], [place], [address], [place] tel:[phone] SEC [place] N Shelbiyonis 1 week s/p PCIOL (chief complaint) Post op visit Nov-3 0-202 0 Kristy Funes. [address] [place] [address] Drive, [address], [place], [place], [address], [place]. tel:[phone] Referring Provider: Angelina Dela Cruz, [address] [facility], [facility] [address], [place], [address]. tel:[phone] [facility], [address], [place], [place], [address], [place] tel:[phone] SEC Jason SARMIENTO Professional 1 day s/p PCIOL (chief complaint) Post op visit 0 Bety MANNY Fermín. [address] [facility], 6th [address], [place], [address], [place]. tel:[phone] Referring Provider: Angelina Dela Cruz, [address] [facility], [address], [place], [address]. tel:[phone] [facility], [address], [place], [place], [address], [place] tel:[phone] [facility] No Information 0 Feliciano Kahn. [address] [facility], [facility] [place], [address], [place]. tel:[phone] Referring Provider: Angelina Dela Cruz, [address] [facility], [address], [place], [address]. tel:[phone] [facility], [address], [place], [place], [address], [place] tel:[phone] SEC Jason SARMIENTO Professional No Information 0 Feliciano Kahn. [address] [facility], [facility] [place], [address], [place]. tel:[phone] Referring Provider: Angelina Dela Cruz, [address] [facility], [address], [place], [address]. tel:[phone] Office/outpa tient Visit, [facility], [address], [place], [place], [address], [place] tel:[phone] SEC Jason SARMIENTO Professional Cataract evaluation (chief complaint) Combined forms of age-related cataract, bilateralTyp e 2 diabetes mellitus without complication sNexdtve age-related mclr degn, left eye, early dry stagePunctat e keratitis, left eyeHistory of endophthalmi tisExdtve age-rel mclr degn, right eye, with inact chrdl neovas 0-202 0 Feliciano Kahn. [address] [facility], [address], [place], [place], [address], [place]. tel:[phone] Referring Provider: Angelina Marroquin MD K, [address] [facility], [address], [place], [address]. tel:[phone] [facility], [address], [place], [place], [address], [place] tel:[phone] SEC Jason GUILLERMINA Professional No Information 0 Feliciano Kahn. [address] [facility], [facility] [address], [place], [place], [address], [place]. tel:[phone] [facility], [address], [place], [place], [address], [place] tel:[phone] SEC Jason GUILLERMINA Professional Blurry vision (chief complaint) Lesion of eyelidNuclea r sclerosis of both eyesMacular pigment epithelial detachment, rightType 2 diabetes mellitus without complication s 3-201 6 Feliciano Kahn. [address] [facility], [facility] [address], [place], [place], [address], [place]. tel:[phone] Referring Provider: Sharonda Aparicio OD, [facility] [address] [facility], [place], [address]. tel:[phone] Family History Family Member Type Diagnosis Age At Onset No Information Payers Payer name Insurance type Covered alliance party ID Authoriza tion(s) Medicare [place] GRECIA [id number] A[employer] Mdcr Supp CI [id number] Social History Type Description Quantity Date Captured [...]
--- OUTSIDE RECORDS SUMMARY | 2024-11-23 17:32 | XMS_ITS | Clinical Summary ---
Author Organization [facility] Address [address] [place] [address] Care Team Providers Care Euclid Operator Name Role Phone Unavailable Primary Care Provider [...] age to complete this topic Insurance MEDICARE [place] [facility]
--- OUTSIDE RECORDS SUMMARY | 2024-11-23 17:32 | XMS_ITS | Referral Summary ---
Author Organization [facility] [address] Address [address] [place] [address] Care Team Providers Care Money Counter Name Role Phone Angélica Horton NP Primary Care Provider [phone] Allergies Active Allergy Reactions Criticality Noted Date Comments Unruyl Inhibitors Angioedema High 10/16/2022 Acetaminophen Fatigue Low [...] 3 Active vitamins A,C,E-zinc-mayela er (ICAPS) 14,320-226-200 twwl-gz-vogl capsule Take by mouth Active cholecalciferol (VITAMIN D-3) 31311 unit tablet Take 2,000 Units by mouth [...] tablet (200 mg total) by mouth daily Active fluticasone (VERAMYST) 27.5 mcg/actuation nasal sprayIndication [...] on file Legal Sex Female 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
--- OUTSIDE RECORDS SUMMARY | 2024-11-23 17:32 | XMS_ITS | Patient Health Summary ---
Author Organization [facility] Cued Address [address] [place] [address] Care Team Providers Care Grades 9 Thru 12 Visiting Teacher Name Role Phone Provider, No Pcp Primary Care Provider Unavailab le Note from [facility],non-owned Affiliates and Associated Physician Practices is amultiple site organization consisting of ambulatory clinics and hospital sitesin [place], [place], [place] and [place]. This disclosure is being madepursuant to the Care Everywhere program and may not contain all information available regarding this patient. Last updated 18.[facility] Allergies * Unruly Inhibitors(Angioedema,Anaphylaxis) -High Criticality * [...] Recorded Patient Health Questionnaire-2 Score 0 09/03/2024 [facility] of Occupat ional Health - Occupational Stress [...] any time in the past 12 m [facility], were you homeless or living in a longterm (including now)? No 08/31/2024 Sex and Gender Information Value Date Recorded Sex Assigned at Not on file Gender Identity Not on file Sexual Orientation Not on file Last Filed Vital Signs Vital Sign Reading Time Taken Comments Blood Pressure 141/70 09/03/2024 8:04 AM [facility] Pulse 105 09/03/2024 8:04 AM [facility] Temperature 36.6 C (97.9 F) 09/03/2024 8:04 AM [facility] Respiratory Rate 18 09/03/2024 8:04 AM [facility] Oxygen Saturation 100% 09/03/2024 8:04 AM [facility] Inhaled Oxygen Concentration - - Weight 56.7 kg (125 lb) 09/01/2024 8:07 PM [facility] Height 162.6 cm (5' 4 ) 09/01/2024 8:07 PM [facility] Body Mass Index 21.46 09/01/2024 8:07 PM [facility] Procedures * GLUCOSE - POINT OF CARE(Performed [...] - POINT OF CARE (09/03/2024 12:25 PM [facility]) Only the most recent of17 resultswithin the time period is included. Glucose WB/POC 168(H) 70 - 99 mg/dL 09/03/2024 2:56 PM [facility] Specimen Type Arterial 09/03/2024 2:56 PM [facility] Blood BLOOD SPECIMEN / Unknown 09/03/2024 12:25 PM [facility] 09/03/2024 2:56 PM [facility] Reina Ma MD LAB - POINT OF CARE ORDERABLES [facility] [address] [place] [address], [facility] [phone] * (ABNORMAL) CBC W AUTO DIFFERENTIAL (09/03/2024 2:10 AM [facility]) Only the most recent of4 resultswithin the time period is included. WBC 9.3 4.0 - 10.7 x10E9/L 09/03/2024 3:08 AM [facility] RBC Count 3.38(L) 3.90 - 5.20 x10E12/L 09/03/2024 3:08 AM [facility] Hemoglobin 9.0(L) 11.9 - 15.8 g/dL 09/03/2024 3:08 AM [facility] Hematocrit 28.4(L) 34.8 - 46.1 % 09/03/2024 3:08 AM [facility] MCV 84.0 80.0 - 98.0 fL 09/03/2024 3:08 AM [facility] MCH 26.6(L) 26.7 - 33.6 pg 09/03/2024 3:08 AM [facility] MCHC 31.7 31.7 - 36.3 g/dL 09/03/2024 3:08 AM [facility] RDW-CV 15.0(H) 11.3 - 14.8 % 09/03/2024 3:08 AM [facility] Platelet Count 356 150 - 420 x10E9/L 09/03/2024 3:08 AM [facility] MPV 9.6 7.8 - 11.4 fL 09/03/2024 3:08 AM [facility] Neutrophil % 56.8 41.0 - 74.0 % 09/03/2024 3:08 AM [facility] Lymphocyte % 28.1 17.0 - 47.0 % 09/03/2024 3:08 AM [facility] Monocyte % 11.5(H) 3.0 - 11.0 % 09/03/2024 3:08 AM [facility] Eosinophil % 2.8 0.0 - 7.0 % 09/03/2024 3:08 AM [facility] Basophil % 0.4 0.0 - 1.6 % 09/03/2024 3:08 AM [facility] Immature Granulocytes % 0.4 0.0 - 1.0 % 09/03/2024 3:08 AM [facility] Neutrophil Absolute 5.27 1.60 - 7.50 x10E9/L 09/03/2024 3:08 AM [facility] Lymphocyte Absolute 2.61 1.00 - 4.40 x10E9/L 09/03/2024 3:08 AM [facility] Monocyte Absolute 1.07(H) 0.15 - 1.00 x10E9/L 09/03/2024 3:08 AM [facility] Eosinophil Absolute 0.26 0.00 - 0.60 x10E9/L 09/03/2024 3:08 AM [facility] Basophil Absolute 0.04 0.00 - 0.13 x10E9/L 09/03/2024 3:08 AM [facility] Blood BLOOD SPECIMEN / Unknown Lab Venipuncture / Unknown 09/03/2024 2:10 AM [facility] 09/03/2024 3:02 AM [facility] Reina Ma MD LAB - HEMATOLOGY ORD ERABLES [facility] [address] [place] [phone], [facility] [phone] * (ABNORMAL) BASIC METABOLIC PANEL (CALCIUM TOTAL) (09/03/2024 2:10 AM [facility]) Only the most recent of3 resultswithin the time period is included. BUN 26 7 - 26 mg/dL 09/03/2024 3:29 AM [facility] Creatinine 0.87 0.56 - 0.96 mg/dL 09/03/2024 3:29 AM [facility] Sodium 139 136 - 145 mmol/L 09/03/2024 3:29 AM [facility] Potassium 4.6(H) 3.5 - 4.5 mmol/L 09/03/2024 3:29 AM [facility] Chloride 109(H) 98 - 107 mmol/L 09/03/2024 3:29 AM [facility] CO2 22 22 - 29 mmol/L 09/03/2024 3:29 AM [facility] Glucose 125(H) 70 - 99 mg/dL 09/03/2024 3:29 AM [facility] Calcium 8.9 8.4 - 10.2 mg/dL 09/03/2024 3:29 AM [facility] Anion Gap 8 6 - 16 09/03/2024 3:29 AM [facility] BUN/Creatinine Ratio 30(H) 7 - 23 09/03/2024 3:29 AM [facility] Osmolality Calculated 294 275 - 295 mOsm/kg 09/03/2024 3:29 AM [facility] eGFR by CKD-EPI 69(L) >=90 mL/min/1.7 3 m2 09/03/2024 3:29 AM [facility] Blood BLOOD SPECIMEN / Unknown Lab Venipuncture / Unknown 09/03/2024 2:10 AM [facility] 09/03/2024 3:02 AM [facility] Reina Ma MD LAB - CHEMISTRY ORDE ROLY [facility] Organization Address City/State/ZIP Co de Phone Number [facility] [address] [place] [phone], [facility] [phone] * PHOSPHORUS BLOOD (09/03/2024 2:10 AM [facility]) Only the most recent of3 resultswithin the time period is included. Phosphorus 3.1 2.9 - 5.1 mg/dL 09/03/2024 3:29 AM [facility] Blood BLOOD SPECIMEN / Unknown Lab Venipuncture / Unknown 09/03/2024 2:10 AM [facility] 09/03/2024 3:02 AM [facility] Reina Ma MD LAB - CHEMISTRY ORDE RABLES Performing Organization Address City/[facility]/ZIP Co de Phone Number [facility] [address] [place] [address], [facility] [phone] * MAGNESIUM BLOOD (09/03/2024 2:10 AM [facility]) Only the most recent of3 resultswithin the time period is included. Magnesium 2.2 1.6 - 2.6 mg/dL 09/03/2024 3:29 AM [facility] Blood BLOOD SPECIMEN / Unknown Lab Venipuncture / Unknown 09/03/2024 2:10 AM [facility] 09/03/2024 3:02 AM [facility] Reina Ma MD LAB - CHEMISTRY JONG DUNHAM Performing Organization Address [facility] Co de Phone Number [place] [phone] [place] [address], [facility] [phone] * MRI Brain Wo Contrast (09/02/2024 4:44 PM [facility]) Anatomical Region Laterality Modality Head Magnetic Resonan ce 09/02/2024 4:25 PM [facility] Impressions 09/04/2024 12:47 PM [facility] IMPRESSION: 1. No evidence of acute infarct. [...] dictated by Roberto Eden MD, PhD (residential mortgage manager). I, Loren Marin MD have personally reviewed and interpreted this examination/study. > Interpreting Provider: Loren Marin MD on 09/04/2024 12:47 PM Narrative 09/04/2024 12:47 PM [facility] PROCEDURE: MRI BRAIN WO CONTRAST, DATE/TIME OF EXAM: 09/02/2024 4:44 PM, LOCATION [facility] INDICATION: I61.2: Nontraumatic hemorrhage of [...] CONTRAST, DATE/TIME OF EXAM: 09/02/2024 4:44PM, LOCATION [facility] INDICATION: I61.2: Nontraumatic hemorrhage of [...] dictated by Roberto Eden MD, PhD (residential mortgage manager). I, Loren Marin MD have personally reviewed and interpreted this examination/study. > Interpreting Provider: Loren Marin MD on 09/04/2024 12:47 PM Reina Ma MD MR ORDERABLES * VAS Bilateral Venous Duplex Le (09/02/2024 11:36 AM [facility]) Anatomical Region Laterality Modality Lower Extremity Ultrasound 09/02/2024 8:59 AM [facility] Narrative Procedure Note Bon Garcia MD - 09/02/2024 Reina Ma MD VASCULAR LAB ORDERAB LES * TROPONIN-I HIGH SENSITIVE BASELINE + 1HR (08/31/2024 4:12 PM [facility]) Troponin I High Sensitive <3 <=14 ng/L 08/31/2024 5:08 PM [facility] Blood BLOOD SPECIMEN / Unknown Lab Venipuncture / Unknown 08/31/2024 4:12 PM [facility] 08/31/2024 4:32 PM [facility] Ayan Livingston MD LAB - CHEMISTRY ORDE RABMERLIN [facility] [address] [place] [address], [facility] [phone] * BLOOD TYPE VERIFICATION (08/31/2024 4:12 PM [facility]) [facility] ABO Rh A POS 08/31/2024 5:[address] [facility] BLOOD [facility] Blood Bank BLOOD SPECIMEN / Unknown Lab Venipuncture / Unknown 08/31/2024 4:12 PM [facility] 08/31/2024 4:40 PM [facility] Ayan Livingston MD LAB - BLOOD BANK ORD ERABLES Performing Organization Address [facility]/ZIP Co de Phone Number [facility] [address] [place] [address], [facility] [phone] * (ABNORMAL) HEMOGLOBIN A1C (08/31/2024 4:12 PM [facility]) [facility] Hemoglobin A1c 6.0(H) <=5.6 % 09/01/2024 8:55 AM [facility] Estimated Average Glucose 126 mg/dL 09/01/2024 8:55 AM [facility] Comment: HbA1c Interpretation: Normal : < 5.7% Pre-diabetes: 5.7-6.4% Diabetes: Equal to or greater than 6.5% Test results diagnostic of diabetes should be repeated for confirmation. Treatment target values recommended by ADA and other clinical organizations should be used to evaluate metabolic control in patients. Reference: British Diabetes Association, Standards of Care in Diabetes -2020 In patients 70 years and older consider HbA1c target range of 7.0-7.5% (Reference: Davon Goldstein et al. JAMDA. 2012) The Sebia assay for the measurement of HbA1c is a National Glycohemoglobin Standardization Program (NGSP) certified method. Blood BLOOD SPECIMEN / Unknown Lab Venipuncture / Unknown 08/31/2024 4:12 PM [facility] 08/31/2024 4:33 PM [facility] Ayan Livingston MD LAB - CHEMISTRY JONG Burns Organization Address City/State/ZIP Co de Phone Number [facility] [address] [place] [phone], [facility] [phone] * (ABNORMAL) URINALYSIS REFLEX TO MICROSCOPIC NO CULTURE (08/31/2024 2:54 PM [facility]) Color UA Yellow Straw, Yellow 08/31/2024 3:23 PM [facility] Clarity UA Clear Clear 08/31/2024 3:23 PM [facility] Specific [place] UA 1.029 1.005 - 1.030 08/31/2024 3:23 PM [facility] pH UA 5.0 5.0 - 8.0 pH 08/31/2024 3:23 PM [facility] Protein UA Negative Negative 08/31/2024 3:23 PM [facility] Glucose UA Negative Negative 08/31/2024 3:23 PM [facility] Ketone UA Negative Negative 08/31/2024 3:23 PM [facility] Bilirubin UA Negative Negative 08/31/2024 3:23 PM [facility] Blood UA Negative Negative 08/31/2024 3:23 PM [facility] Nitrite UA Negative Negative 08/31/2024 3:23 PM [facility] Leukocyte Esterase Negative Negative 08/31/2024 3:23 PM [facility] Urobilinogen UA Negative Negative mg/dL 08/31/2024 3:23 PM [facility] RBC UA 3-5 None Seen, 0-2, 3-5 /HPF 08/31/2024 3:23 PM [facility] WBC UA 6-10(A) None Seen, 0-5 /HPF 08/31/2024 3:23 PM [facility] Squamous Epithelial Cells UA 0-2 None Seen, 0-2, 3-5 /HPF 08/31/2024 3:23 PM [facility] Urine URINE SPECIMEN OBTAINED BY SINGLE CATHETERIZATION OF URINARY BLADDER / Unknown Collection / Unknown 08/31/2024 2:54 PM [facility] 08/31/2024 3:00 PM [facility] - 08/31/2024 3:23 PM [facility] Reina aM MD LAB - URINALYSIS ORD ERABLES Performing Organization Address City/[facility]/ZIP Co de Phone Number [facility] [address] [place] [address], [facility] [phone] * CULTURE URINE (08/31/2024 2:54 PM [facility]) Culture Urine No growth (<100 CFU/mL) KRISTIN 09/01/2024 9:37 PM [facility] Urine URINE SPECIMEN OBTAINED BY SINGLE CATHETERIZATION OF URINARY BLADDER / Unknown Collection / Unknown 08/31/2024 2:54 PM [facility] 08/31/2024 3:00 PM [facility] Reina Ma MD LAB - MICROBIOLOGY O RDERABLES [facility] [address] [place] [address], [facility] [phone] * URINE DRUG SCREEN IMMUNOASSAY (08/31/2024 2:54 PM [facility]) Amphetamines Screen Urine Negative Negative: < 1000 ng/mL 08/31/2024 3:25 PM [facility] Barbiturates Screen Urine Negative Negative: < 200 ng/mL 08/31/2024 3:25 PM [facility] Benzodiazepine Screen Urine Negative Negative: < 200 ng/mL 08/31/2024 3:25 PM [facility] Opiates Urine Negative Negative: < 300 ng/mL 08/31/2024 3:25 PM [facility] Cocaine Metabolites Urine Negative Negative: < 300 ng/mL 08/31/2024 3:25 PM [facility] Phencyclidine Screen Urine Negative Negative: < 25 ng/ml 08/31/2024 3:25 PM [facility] Cannabinoids Screen Urine Negative Negative: <50 ng/mL 08/31/2024 3:25 PM [facility] Methadone Screen Urine Negative Negative: < 300 ng/mL 08/31/2024 3:25 PM [facility] Fentanyl Screen Urine Negative Negative: <1.5 ng/mL 08/31/2024 3:25 PM [facility] Urine URINE / Unknown Collection / Unknown 08/31/2024 2:54 PM [facility] 08/31/2024 3:00 PM [facility] Narrative [facility] - 08/31/2024 3:25 PM [facility] The Urine Toxicology Screening Panel does not screen for Propoxyphene, Meprobamate, Carisoprodol, Trazodone, [id number] medications and/or volatiles (Acetone, Isopropanol, Methanol or Ethylene Glycol). Ethanol, Salicylate, Acetaminophen, Tricyclic Antidepressants and several therapeutic drugs may be individually assayed in serum or plasma specimen. Toxicology testing by the [facility] is an aid to medical diagnosis and treatment of patients. No documented chain of custody was maintained. Results are intended to be used for clinical purposes only. Reina Ma MD LAB - URINE CHEMISTR Y ORDERABLES [facility] [address] [place] [phone], [facility] [phone] * EKG 12-LEAD (08/31/2024 11:06 AM [facility]) Ventricular Rate 76 BPM [facility] MUSE Atrial Rate 76 BPM [facility] MUSE P-R Interval 384 ms [facility] QRS Duration ms 160 ms [facility] Q-T Interval ms 432 ms [facility] QTC Calculation (Bezet) 486 ms [facility] MUSE Calculated R [place] -92 degrees [facility] MUSE Calculated T [place] 43 degrees [facility] Interpretation EKG SINUS RHYTHM WITH 1ST DEGREE A-V BLOCK RIGHT BUNDLE BRANCH BLOCK ABNORMAL ECG NO PREVIOUS ECGS AVAILABLE Confirmed by KOLE GOODEN MD ([id number]) on 08/31/2024 5:06:06 PM [facility] MUSE 08/31/2024 11:0 6 AM [facility] 08/31/2024 5:06 PM [facility] Ayan Livingston MD ECG ORDERABLES Performing Organization Address [facility] Co de Phone Number [facility] * (ABNORMAL) PTT [facility] (08/31/2024 11:02 AM [facility]) APTT 40.4(H) 23.0 - 38.4 Seconds 08/31/2024 11:30 AM [facility] Comment:Suggested therapeuti c range for full dose I.V. unfractionated heparin therapy for venous thromboembolism is 71 to 109 seconds. Blood BLOOD SPECIMEN / Unknown Venipuncture / Unknown 08/31/2024 11:02 AM [facility] 08/31/2024 11:10 AM [facility] Reina Ma MD LAB - COAGULATION OR DERABLES Performing Organization Address [facility] Co de Phone Number [address] [address], [facility] [phone] * (ABNORMAL) PT-INR [facility] (08/31/2024 11:02 AM [facility]) PT 18.3(H) 12.1 - 14.8 Seconds 08/31/2024 11:30 AM [facility] INR 1.6 See Comment 08/31/2024 11:30 AM [facility] Comment:The suggested therap eutic range for standard coumadin (warfarin) therapy is an INR of 2.0-3.0. For high-risk patients (Mechanical Mitral Valve Prosthesis, etc.), the suggested prophylactic therapeutic range is an INR of 2.5-3.5. Blood BLOOD SPECIMEN / Unknown Venipuncture / Unknown 08/31/2024 11:02 AM [facility] 08/31/2024 11:10 AM [facility] Ayan Livingston MD LAB - COAGULATION OR DERABLES Performing Organization Address [facility] Co de Phone Number [address] [address], [place] [phone] * TYPE + SCREEN PANEL (08/31/2024 11:02 AM [facility]) [facility] Antibody Screen NEG 11:[address] [facility] ABO Rh A POS 08/31/2024 11:[address] [facility] Blood Bank BLOOD SPECIMEN / Unknown Venipuncture / Unknown 08/31/2024 11:02 AM [facility] 08/31/2024 11:08 AM [facility] Ayan Livingston MD LAB - BLOOD BANK ORD ERABLES [facility] [address] [place] [address], [facility] [phone] * (ABNORMAL) COMPREHENSIVE METABOLIC PANEL (08/31/2024 11:02 AM [facility]) [facility] BUN 28(H) 7 - 26 mg/dL 08/31/2024 11:36 AM [facility] Creatinine 0.79 0.56 - 0.96 mg/dL 08/31/2024 11:36 AM [facility] Sodium 140 136 - 145 mmol/L 08/31/2024 11:36 AM [facility] Potassium 4.2 3.5 - 4.5 mmol/L 08/31/2024 11:36 AM [facility] Chloride 113(H) 98 - 107 mmol/L 08/31/2024 11:36 AM [facility] CO2 25 22 - 29 mmol/L 08/31/2024 11:36 AM [facility] Glucose 87 70 - 99 mg/dL 08/31/2024 11:36 AM [facility] Calcium 9.5 8.4 - 10.2 mg/dL 08/31/2024 11:36 AM [facility] Protein Total 6.4 6.0 - 8.3 g/dL 08/31/2024 11:36 AM [facility] Albumin 3.4 3.4 - 5.0 g/dL 08/31/2024 11:36 AM [facility] Bilirubin Total 0.2 0.2 - 1.2 mg/dL 08/31/2024 11:36 AM [facility] Alkaline Phosphatase 103 40 - 150 U/L 08/31/2024 11:36 AM [facility] ALT 23 5 - 55 U/L 08/31/2024 11:36 AM [facility] AST 22 5 - 34 U/L 08/31/2024 11:36 AM [facility] Anion Gap 2(L) 6 - 16 08/31/2024 11:36 AM [facility] BUN/Creatinine Ratio 35(H) 7 - 23 08/31/2024 11:36 AM [facility] Osmolality Calculated 295 275 - 295 mOsm/kg 08/31/2024 11:36 AM [facility] Albumin/Globulin Ratio 1.1 1.1 - 2.3 08/31/2024 11:36 AM [facility] eGFR by CKD-EPI 77(L) >=90 mL/min/1.7 3 m2 08/31/2024 11:36 AM [facility] Blood BLOOD SPECIMEN / Unknown Venipuncture / Unknown 08/31/2024 11:02 AM [facility] 08/31/2024 11:10 AM [facility] Ayan Livingston MD [facility] Organization Address City/State/ZIP Co de Phone Number [facility] [address] [place] [phone], [facility] [phone] * CT ANGIO BRAIN NECK STROKE (08/31/2024 11:00 AM [facility]) Anatomical Region Laterality Modality Head Computed Tomogra phy 08/31/2024 11:2 3 AM [facility] Impressions 08/31/2024 12:09 PM [facility] IMPRESSION: 1. No large arterial occlusions or significant stenoses identified in the head or neck. 2. Multiple bilateral inferior lobar thyroid nodules measuring up to 1 cm. This preliminary report was dictated by Demar Elkins MD (DR/IR Resident). I, Loren Marin MD have personally reviewed and interpreted this examination/study. > Interpreting Provider: Loren Marin MD on 08/31/2024 12:09 PM Narrative 08/31/2024 12:09 PM [facility] PROCEDURE: CT ANGIO BRAIN NECK STROKE, DATE/TIME OF EXAM: 08/31/2024 11:00 AM, LOCATION [facility] INDICATION: Code Stroke ADDITIONAL CLINICAL [...] DATE/TIME OF EXAM: 08/31/2024 11:00 AM, LOCATION [facility] INDICATION: Code Stroke ADDITIONAL CLINICAL [...] OF CARE (IP) STROKE (08/31/2024 10:53 AM [facility]) INR 1.2 0.9 - 1.2 08/31/2024 10:54 AM [facility] Device [id number] 08/31/2024 10:54 AM [facility] Marketing Secretary ID [id number] 08/31/2024 10:54 AM [facility] Blood BLOOD SPECIMEN / Unknown 08/31/2024 10:53 AM [facility] 08/31/2024 10:54 AM [facility] Provider Unknown LAB - POINT OF CARE ORDERABLES [facility] [address] [place] [address], [facility] [phone] * CREATININE - POCT INTERFACED (08/31/2024 10:53 AM [facility]) Creatinine POCT 0.56 0.30 - 1.30 mg/dL 08/31/2024 11:00 AM [facility] eGFR >90 >=90 mL/min/1.7 3 m2 08/31/2024 11:00 AM [facility] Blood BLOOD SPECIMEN / Unknown 08/31/2024 10:53 AM [facility] 08/31/2024 11:00 AM [facility] Provider Unknown LAB - POINT OF CARE ORDERABLES [facility] [address] [place] [address], [place] [phone] * CT BRAIN - Stroke (08/31/2024 10:50 AM [facility]) Anatomical Region Laterality Modality Head Computed Tomogra phy 08/31/2024 11:0 4 AM [facility] Impressions 08/31/2024 11:09 AM [facility] IMPRESSION: 1. A small amount of hyperattenuation [...] 08/31/2024 11:09 AM Narrative 08/31/2024 11:09 AM [facility] PROCEDURE: CT BRAIN STROKE, DATE/TIME OF EXAM: 08/31/2024 10:50 AM, LOCATION [facility] INDICATION: Code Stroke ADDITIONAL CLINICAL [...] DATE/TIME OF EXAM: 08/31/2024 10:50 AM, LOCATION [facility] INDICATION: Code Stroke ADDITIONAL CLINICAL [...] Ayan Livingston MD CT ORDERABLES Care Teams Grades 9 Thru 12 Visiting Teacher Relationship Specialty Start Date End Date Provider, No Pcp PCP - General 08/30/24
--- OUTSIDE RECORDS SUMMARY | 2024-11-23 17:32 | XMS_ITS | Referral Summary ---
Author Organization [facility] [email or web address] Address [address] [place] [address] Care Team Providers Care Digital Coordinator Name Role Phone Provider, No Pcp Primary Care Provider Unavailab le Source Comments [facility],non-owned Affiliates and Associated Physician Practices is amultiple site organization consisting of ambulatory clinics and hospital sitesin [place], [place], [place] and [place]. This disclosure is being madepursuant to the Care Everywhere program and may not contain all information available regarding this patient. 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) ; Primary hypertension; Longstanding persistent atrial fibrillation (HCC); Type 2 diabetes mellitus without complication, without long-term current use of insulin (HCC) 08/31/2024 10:40 AM DIE HARDENER - 09/03/2024 2:12 PM [facility] Hospital Encounter [facility] 5N ACUTE [address] [place] [address] Austin Stapleton MD Esechie, Aimalohi, MD Linares, [...] Recorded Patient Health Questionnaire-2 Score 0 09/03/2024 [facility] - Occupational Stress [...] any time in the past 12 m [facility], were you homeless or living in a halfway (including now)? No 08/31/2024 Sex and Gender Information Value Date Recorded Sex Assigned at Not on file Gender Identity Not on file Sexual Orientation Not on file Last Filed Vital Signs Vital Sign Reading Time Taken Comments Blood Pressure 141/70 09/03/2024 8:04 AM DIE HARDENER Pulse 105 09/03/2024 8:04 AM DIE HARDENER Temperature 36.6 C (97.9 F) 09/03/2024 8:04 AM DIE HARDENER Respiratory Rate 18 09/03/2024 8:04 AM DIE HARDENER Oxygen Saturation 100% 09/03/2024 8:04 AM DIE HARDENER Inhaled Oxygen Concentration - - Weight 56.7 kg (125 lb) 09/01/2024 8:07 PM DIE HARDENER Height 162.6 cm (5' 4 ) 09/01/2024 8:07 PM DIE HARDENER Body Mass Index 21.46 09/01/2024 8:07 PM DIE HARDENER Functional Status Functional Status Response Date of [...] POINT OF CARE Routine 09/03/2024 12:25 PM DIE HARDENER PHOSPHORUS BLOOD Routine 09/03/2024 2:10 AM DIE HARDENER 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) MAGNESIUM BLOOD Routine 09/03/2024 2:10 AM DIE HARDENER 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) CBC W AUTO DIFFERENTIAL Routine 09/03/2024 2:10 AM DIE HARDENER 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) BASIC METABOLIC PANEL (CALCIUM TOTAL) Routine 09/03/2024 2:10 AM DIE HARDENER 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) GLUCOSE - POINT OF CARE Routine 09/02/2024 11:25 PM DIE HARDENER GLUCOSE - POINT OF CARE Routine 09/02/2024 9:19 PM DIE HARDENER MRI BRAIN WO CONTRAST Routine 09/02/2024 4:44 PM DIE HARDENER 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) GLUCOSE - POINT OF CARE Routine 09/02/2024 11:58 AM DIE HARDENER VAS BILATERAL VENOUS DUPLEX LE Routine 09/02/2024 11:36 AM DIE HARDENER Acute deep vein thrombosis (DVT) of distal vein of left lower extremity (HCC) GLUCOSE - POINT OF CARE Routine 09/02/2024 3:55 AM DIE HARDENER CBC W AUTO DIFFERENTIAL Routine 09/02/2024 1:56 AM DIE HARDENER 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) PHOSPHORUS BLOOD Routine 09/02/2024 1:55 AM DIE HARDENER 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) MAGNESIUM BLOOD Routine 09/02/2024 1:55 AM DIE HARDENER 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) BASIC METABOLIC PANEL (CALCIUM TOTAL) Routine 09/02/2024 1:55 AM DIE HARDENER 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) GLUCOSE - POINT OF CARE Routine 09/01/2024 11:57 PM DIE HARDENER GLUCOSE - POINT OF CARE Routine 09/01/2024 8:07 PM DIE HARDENER GLUCOSE - POINT OF CARE Routine 09/01/2024 4:05 PM DIE HARDENER GLUCOSE - POINT OF CARE Routine 09/01/2024 11:21 AM DIE HARDENER GLUCOSE - POINT OF CARE Routine 09/01/2024 7:57 AM DIE HARDENER GLUCOSE - POINT OF CARE Routine 09/01/2024 3:52 AM DIE HARDENER PHOSPHORUS BLOOD Routine 09/01/2024 1:42 AM DIE HARDENER 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) MAGNESIUM BLOOD Routine 09/01/2024 1:42 AM DIE HARDENER 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) CBC W AUTO DIFFERENTIAL Routine 09/01/2024 1:42 AM DIE HARDENER 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) BASIC METABOLIC PANEL (CALCIUM TOTAL) Routine 09/01/2024 1:42 AM DIE HARDENER 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) GLUCOSE - POINT OF CARE Routine 09/01/2024 12:18 AM DIE HARDENER GLUCOSE - POINT OF CARE Routine 08/31/2024 9:27 PM DIE HARDENER GLUCOSE - POINT OF CARE Routine 08/31/2024 6:32 PM DIE HARDENER GLUCOSE - POINT OF CARE Routine 08/31/2024 5:44 PM DIE HARDENER BLOOD TYPE VERIFICATION STAT 08/31/2024 4:12 PM DIE HARDENER HEMOGLOBIN A1C Add on 08/31/2024 4:12 PM DIE HARDENER 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) TROPONIN-I HIGH SENSITIVE BASELINE + 1HR Add on 08/31/2024 4:12 PM DIE HARDENER 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) GLUCOSE - POINT OF CARE Routine 08/31/2024 3:01 PM DIE HARDENER URINALYSIS REFLEX TO MICROSCOPIC NO CULTURE STAT 08/31/2024 2:54 PM DIE HARDENER URINE DRUG SCREEN IMMUNOASSAY STAT 08/31/2024 2:54 PM DIE HARDENER 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) CULTURE URINE STAT 08/31/2024 2:54 PM DIE HARDENER EKG 12-LEAD STAT 08/31/2024 11:06 AM DIE HARDENER Generalized weakness TYPE + SCREEN PANEL STAT 08/31/2024 1 1:02 AM DIE HARDENER PTT [facility] Routine 08/31/2024 11:02 AM DIE HARDENER 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) PT-INR [facility] STAT 08/31/2024 11:02 AM DIE HARDENER COMPREHENSIVE METABOLIC PANEL STAT 08/31/2024 11:02 AM DIE HARDENER CBC W AUTO DIFFERENTIAL STAT 08/31/2024 11:[address] ANGIO BRAIN NECK STROKE STAT 08/31/2024 11:00 AM DIE HARDENER Generalized weakness CREATININE - POCT INTERFACED Routine 08/31/2024 10:53 AM DIE HARDENER INR WHOLE BLOOD - POINT OF CARE (IP) STROKE Routine 08/31/2024 10:[address] BRAIN STROKE STAT 08/31/2024 10:50 AM DIE HARDENER Generalized weakness GLUCOSE - POINT OF CARE Routine 08/31/2024 10:45 AM DIE HARDENER from Last 3 Months Results * (ABNORMAL) GLUCOSE - POINT OF CARE (09/03/2024 12:25 PM DIE HARDENER) Only the most recent of17 resultswithin the time period is included. Glucose WB/POC 168(H) 70 - 99 mg/dL 09/03/2024 2:56 PM DIE HARDENER [facility] Specimen Type Arterial 09/03/2024 2:56 PM DIE HARDENER [facility] Blood BLOOD SPECIMEN / Unknown 09/03/2024 12:25 PM DIE HARDENER 09/03/2024 2:56 PM DIE HARDENER Reina Ma MD LAB - POINT OF CARE ORDERABLES [facility] [address] [place] [address], [facility] [phone] * (ABNORMAL) CBC W AUTO DIFFERENTIAL (09/03/2024 2:10 AM DIE HARDENER) Only the most recent of4 resultswithin the [...] Lab Venipuncture / Unknown 09/03/2024 2:10 AM DIE HARDENER 09/03/2024 3:02 AM [facility] Reina Ma MD LAB - HEMATOLOGY ORD ERABLES [facility] [address] [place] [address], [facility] [phone] * (ABNORMAL) BASIC METABOLIC PANEL (CALCIUM TOTAL) (09/03/2024 2:10 AM DIE HARDENER) Only the most recent of3 resultswithin the [...] Lab Venipuncture / Unknown 09/03/2024 2:10 AM DIE HARDENER 09/03/2024 3:02 AM DIE HARDENER Reina Ma MD LAB - CHEMISTRY [place] [place] [address] [address], [place] [phone] * PHOSPHORUS BLOOD (09/03/2024 2:10 AM DIE HARDENER) Only the most recent of3 resultswithin the time period is included. Phosphorus 3.1 2.9 - 5.1 mg/dL 09/03/2024 3:29 AM [facility] Blood BLOOD SPECIMEN / Unknown Lab Venipuncture / Unknown 09/03/2024 2:10 AM DIE HARDENER 09/03/2024 3:02 AM DIE HARDENER Reina Ma MD LAB - CHEMISTRY [place] [place] [address] [address], [place] [phone] * MAGNESIUM BLOOD (09/03/2024 2:10 AM DIE HARDENER) Only the most recent of3 resultswithin the time period is included. Magnesium 2.2 1.6 - 2.6 mg/dL 09/03/2024 3:29 AM DIE HARDENER [facility] Blood BLOOD SPECIMEN / Unknown Lab Venipuncture / Unknown 09/03/2024 2:10 AM DIE HARDENER 09/03/2024 3:02 AM DIE HARDENER Reina Ma MD LAB - CHEMISTRY [facility] Organization Address City/State/ZIP Co de Phone Number [facility] [address] [place] [address], [facility] [phone] * MRI Brain Wo Contrast (09/02/2024 4:44 PM DIE HARDENER) Anatomical Region Laterality Modality Head Magnetic Resonan ce 09/02/2024 4:25 PM DIE HARDENER Impressions 09/04/2024 12:47 PM DIE HARDENER IMPRESSION: 1. No evidence of acute infarct. [...] Report dictated by Roberto Eden MD, PhD (senior vice president & general counsel). I, Loren Marin MD have personally reviewed and interpreted this examination/study. > Interpreting Provider: Loren Marin MD on 09/04/2024 12:47 PM Narrative 09/04/2024 12:47 PM DIE HARDENER PROCEDURE: MRI BRAIN WO CONTRAST, DATE/TIME OF EXAM: 09/02/2024 4:44 PM, LOCATION [facility] INDICATION: I61.2: Nontraumatic hemorrhage of [...] CONTRAST, DATE/TIME OF EXAM: 09/02/2024 4:44PM, LOCATION [facility] INDICATION: I61.2: Nontraumatic hemorrhage of [...] Report dictated by Roberto Eden MD, PhD (senior vice president & general counsel). I, Loren Marin MD have personally reviewed and interpreted this examination/study. > Interpreting Provider: Loren Marin MD on 09/04/2024 12:47 PM Reina Ma MD MR ORDERABLES * VAS Bilateral Venous Duplex Le (09/02/2024 11:36 AM DIE HARDENER) Anatomical Region Laterality Modality Lower Extremity Ultrasound 09/02/2024 8:59 AM DIE HARDENER Narrative Procedure Note Bon Garcia MD - 09/02/2024 Reina Ma MD VASCULAR LAB ORDERAB LES * TROPONIN-I HIGH SENSITIVE BASELINE + 1HR (08/31/2024 4:12 PM DIE HARDENER) Pathologist [facility] Troponin I High Sensitive <3 <=14 ng/L 08/31/2024 5:08 PM DIE HARDENER [facility] Blood BLOOD SPECIMEN / Unknown Lab Venipuncture / Unknown 08/31/2024 4:12 PM DIE HARDENER 08/31/2024 4:32 PM DIE HARDENER Ayan Livingston MD LAB - CHEMISTRY TIASHAE ROLY [facility] [address] [place] [phone], [facility] [phone] * BLOOD TYPE VERIFICATION (08/31/2024 4:12 PM DIE HARDENER) ABO Rh A POS 08/31/2024 5:1 3 PM DIE HARDENER [facility] Blood Bank BLOOD SPECIMEN / Unknown Lab Venipuncture / Unknown 08/31/2024 4:12 PM DIE HARDENER 08/31/2024 4:40 PM DIE HARDENER Ayan Livingston MD LAB - BLOOD BANK ORD TIFFANY Performing Organization Address City/[facility]/ZIP Co de Phone Number [facility] [address] [place] [address], [facility] [phone] * (ABNORMAL) HEMOGLOBIN A1C (08/31/2024 4:12 PM DIE HARDENER) Hemoglobin A1c 6.0(H) <=5.6 % 09/01/2024 8:55 AM [facility] Estimated Average Glucose 126 mg/dL 09/01/2024 8:55 AM [facility] Comment: HbA1c Interpretation: Normal : < 5.7% Pre-diabetes: 5.7-6.4% Diabetes: Equal to or greater than 6.5% Test results diagnostic of diabetes should be repeated for confirmation. Treatment target values recommended by ADA and other clinical organizations should be used to evaluate metabolic control in patients. Reference: [place] [employer], Standards of Care in Diabetes -2020 In patients 70 years and older consider HbA1c target range of 7.0-7.5% (Reference: Davon Goldstein et al. JAMDA. 2012) The Sebia assay for the measurement of HbA1c is a National Glycohemoglobin Standardization Program (NGSP) certified method. Blood BLOOD SPECIMEN / Unknown Lab Venipuncture / Unknown 08/31/2024 4:12 PM DIE HARDENER 08/31/2024 4:33 PM DIE HARDENER Ayan Livingston MD LAB - CHEMISTRY [facility] [place] [address] [place] [address], [facility] [phone] * (ABNORMAL) URINALYSIS REFLEX TO MICROSCOPIC NO CULTURE (08/31/2024 2:54 PM DIE HARDENER) Color UA Yellow Straw, Yellow 08/31/2024 3:23 PM [facility] Clarity UA Clear Clear 08/31/2024 3:23 PM [facility] Specific [place] UA 1.029 1.005 - 1.030 08/31/2024 3:23 [...] 3-5 /HPF 08/31/2024 3:23 PM [facility] Urine URINE SPECIMEN OBTAINED BY SINGLE CATHETERIZATION OF URINARY BLADDER / Unknown Collection / Unknown 08/31/2024 2:54 PM DIE HARDENER 08/31/2024 3:00 PM DIE HARDENER Narrative [facility] - 08/31/2024 3:23 PM DIE HARDENER Reina Ma MD LAB - URINALYSIS ORD ERABLES [facility] [address] [place] [address], [facility] [phone] * CULTURE URINE (08/31/2024 2:54 PM DIE HARDENER) Culture Urine No growth (<100 CFU/mL) KRISTIN 09/01/2024 9:37 PM DIE HARDENER [facility] MICROBIOLOGY Urine URINE SPECIMEN OBTAINED BY SINGLE CATHETERIZATION OF URINARY BLADDER / Unknown Collection / Unknown 08/31/2024 2:54 PM DIE HARDENER 08/31/2024 3:00 PM DIE HARDENER Reina Ma MD LAB - MICROBIOLOGY O RDERABLES [facility] MICROBIOLOGY [address] [place] [address], [facility] [phone] * URINE DRUG SCREEN IMMUNOASSAY (08/31/2024 2:54 PM DIE HARDENER) Amphetamines Screen Urine Negative Negative: < 1000 ng/mL 08/31/2024 3:25 PM DIE HARDENER [facility] Barbiturates Screen Urine Negative Negative: < 200 ng/mL 08/31/2024 3:25 PM [facility] Benzodiazepine Screen Urine Negative Negative: < 200 ng/mL 08/31/2024 3:25 PM DIE HARDENER [facility] Opiates Urine Negative Negative: < 300 ng/mL 08/31/2024 3:25 PM DIE HARDENER [facility] Cocaine Metabolites Urine Negative Negative: < 300 ng/mL 08/31/2024 3:25 PM [facility] Phencyclidine Screen Urine Negative Negative: < 25 ng/ml 08/31/2024 3:25 PM [facility] Cannabinoids Screen Urine Negative Negative: <50 ng/mL 08/31/2024 3:25 PM [facility] Methadone Screen Urine Negative Negative: < 300 ng/mL 08/31/2024 3:25 PM DIE HARDENER [facility] Fentanyl Screen Urine Negative Negative: <1.5 ng/mL 08/31/2024 3:25 PM [facility] Urine URINE / Unknown Collection / Unknown 08/31/2024 2:54 PM DIE HARDENER 08/31/2024 3:00 PM DIE HARDENER Narrative [facility] - 08/31/2024 3:25 PM DIE HARDENER The Urine Toxicology Screening Panel does not screen for Propoxyphene, Meprobamate, Carisoprodol, Trazodone, yglq-uei-fkzhuio medications and/or volatiles (Acetone, Isopropanol, Methanol or Ethylene Glycol). Ethanol, Salicylate, Acetaminophen, Tricyclic Antidepressants and several therapeutic drugs may be individually assayed in serum or plasma specimen. Toxicology testing by the [facility] is an aid to medical diagnosis and treatment of patients. No documented chain of custody was maintained. Results are intended to be used for clinical purposes only. Reina Ma MD LAB - URINE CHEMISTR Y ORDERABLES Performing Organization Address City/[facility] Co de Phone Number [facility] [address] [place] [address], [facility] [phone] * EKG 12-LEAD (08/31/2024 11:06 AM DIE HARDENER) Ventricular Rate 76 BPM SL MUSE Atrial Rate 76 BPM [facility] MUSE P-R Interval 384 ms [facility] MUSE QRS Duration ms 160 ms [facility] MUSE Q-T Interval ms 432 ms [facility] MUSE QTC Calculation (Bezet) 486 ms [facility] MUSE Calculated R [place] -92 degrees [facility] MUSE Calculated T [place] 43 degrees [facility] MUSE Interpretation EKG SINUS RHYTHM WITH 1ST DEGREE A-V BLOCK RIGHT BUNDLE BRANCH BLOCK ABNORMAL ECG NO PREVIOUS ECGS AVAILABLE Confirmed by KOLE GOODEN MD ([id number]) on 08/31/2024 5:06:06 PM [facility] MUSE 08/31/2024 11:0 6 AM DIE HARDENER 08/31/2024 5:06 PM DIE HARDENER Ayan Livingston MD ECG ORDERABLES Performing Organization Address [facility] Co de Phone Number [facility] MUSE * (ABNORMAL) PTT [facility] (08/31/2024 11:02 AM DIE HARDENER) APTT 40.4(H) 23.0 - 38.4 Seconds 08/31/2024 11:30 AM [facility] Comment:Suggested therapeuti c range for full dose I.V. unfractionated heparin therapy for venous thromboembolism is 71 to 109 seconds. Blood BLOOD SPECIMEN / Unknown Venipuncture / Unknown 08/31/2024 11:02 AM DIE HARDENER 08/31/2024 11:10 AM DIE HARDENER Reina Ma MD LAB - COAGULATION OR DERABLES Performing Organization Address City/[facility]/ZIP Co de Phone Number [facility] [address] [place] [address], [facility] [phone] * (ABNORMAL) PT-INR [facility] (08/31/2024 11:02 AM DIE HARDENER) Pathologist [facility] PT 18.3(H) 12.1 - 14.8 Seconds 08/31/2024 [...] Unknown Venipuncture / Unknown 08/31/2024 11:02 AM DIE HARDENER 08/31/2024 11:10 AM DIE HARDENER Ayan Livingston MD LAB - COAGULATION OR DERABLES [facility] [address] [place] [address], [facility] [phone] * TYPE + SCREEN PANEL (08/31/2024 11:02 AM DIE HARDENER) Pathologist [facility] Antibody Screen NEG 11:44 AM [facility] ABO Rh A POS 08/31/2024 11:44 AM [facility] Blood Bank BLOOD SPECIMEN / Unknown Venipuncture / Unknown 08/31/2024 11:02 AM DIE HARDENER 08/31/2024 11:08 AM [facility] Ayan Livingston MD LAB - BLOOD BANK ORD ERABLES Performing Organization Address [facility]/State/ZIP Co de Phone Number [facility] [address] [place] [address] [phone] * (ABNORMAL) COMPREHENSIVE METABOLIC PANEL (08/31/2024 11:02 AM [facility]) BUN 28(H) 7 - 26 mg/dL [...] Unknown Venipuncture / Unknown 08/31/2024 11:02 AM DIE HARDENER 08/31/2024 11:10 AM DIE HARDENER Ayan Livingston MD [facility] Organization Address City/State/ZIP Co de Phone Number [facility] [address] [place] [phone], [facility] [phone] * CT ANGIO BRAIN NECK STROKE (08/31/2024 11:00 AM DIE HARDENER) Anatomical Region Laterality Modality Head Computed Tomogra phy 08/31/2024 11:2 3 AM DIE HARDENER Impressions 08/31/2024 12:09 PM DIE HARDENER IMPRESSION: 1. No large arterial occlusions or significant stenoses identified in the head or neck. 2. Multiple bilateral inferior lobar thyroid nodules measuring up to 1 cm. This preliminary report was dictated by Demar Elkins MD (DR/IR Resident). I, Loren Marin MD have personally reviewed and interpreted this examination/study. > Interpreting Provider: Loren Marin MD on 08/31/2024 12:09 PM Narrative 08/31/2024 12:09 PM DIE HARDENER PROCEDURE: CT ANGIO BRAIN NECK STROKE, DATE/TIME OF EXAM: 08/31/2024 11:00 AM, LOCATION [facility] INDICATION: Code Stroke ADDITIONAL CLINICAL [...] DATE/TIME OF EXAM: 08/31/2024 11:00 AM, LOCATION [facility] INDICATION: Code Stroke ADDITIONAL CLINICAL [...] OF CARE (IP) STROKE (08/31/2024 10:53 AM DIE HARDENER) INR 1.2 0.9 - 1.2 08/31/2024 10:54 AM [facility] Device [id number] 08/31/2024 10:54 AM [facility] Director Of Employer Services ID [id number] 08/31/2024 10:54 AM [facility] Blood BLOOD SPECIMEN / Unknown 08/31/2024 10:53 AM DIE HARDENER 08/31/2024 10:54 AM DIE HARDENER Provider Unknown LAB - POINT OF CARE ORDERABLES [facility] [address] [place] [address], [facility] [phone] * CREATININE - POCT INTERFACED (08/31/2024 10:53 AM [facility]) Creatinine POCT 0.56 0.30 - 1.30 mg/dL 08/31/2024 11:00 AM [facility] eGFR >90 >=90 mL/min/1.7 3 m2 08/31/2024 11:00 AM [facility] Blood BLOOD SPECIMEN / Unknown 08/31/2024 10:53 AM DIE HARDENER 08/31/2024 11:00 AM DIE HARDENER Provider Unknown LAB - POINT OF CARE ORDERABLES Performing Organization Address City/[facility]/ZIP Co de Phone Number [facility] [address] [place] [phone], [facility] [phone] * CT BRAIN - Stroke (08/31/2024 10:50 AM DIE HARDENER) Anatomical Region Laterality Modality Head Computed Tomogra phy 08/31/2024 11:0 4 AM DIE HARDENER Impressions 08/31/2024 11:09 AM DIE HARDENER IMPRESSION: 1. A small amount of hyperattenuation [...] 08/31/2024 11:09 AM Narrative 08/31/2024 11:09 AM DIE HARDENER PROCEDURE: CT BRAIN STROKE, DATE/TIME OF EXAM: 08/31/2024 10:50 AM, LOCATION [facility] INDICATION: Code Stroke ADDITIONAL CLINICAL [...] DATE/TIME OF EXAM: 08/31/2024 10:50 AM, LOCATION [facility] INDICATION: Code Stroke ADDITIONAL CLINICAL [...] 11:06 AM 09/03/2024 3:17 PM Care Teams Digital Coordinator Relationship Specialty Start Date End Date Provider, No Pcp PCP - General 08/30/24
[2024-11-25 02:44] LABS: Vitamin D 25 Hydroxy 56 ng/mL (30-100)
[2024-11-25 17:53] LABS: Red Blood Cell Folate 670 ng/mL RBC (>280)
== END 2024-11-23 15:40 | disposition home or self-care (01) ==
LOC: CHSLAB 15:40
PROVIDERS: PCP Nurse Practitioner Family; Visit Provider Nurse Practitioner Family
DX: I10 Essential (primary) hypertension (principal); D50.9 Iron deficiency anemia, unspecified; D64.9 Anemia, unspecified; E53.8 Deficiency of other specified B group vitamins; Z79.899 Other long term (current) drug therapy; E11.319 Type 2 diabetes mellitus with unspecified diabetic retinopathy without macular edema
CPT/HCPCS: 36415; 80053; 82306; 82607; 82747; 83036; 83540; 83550; 83735; 85025

== ENCOUNTER 2024-11-28 09:57 | Outpatient (CLI) | payer MEDICARE, SELFPAY ==
[2024-11-28 10:25] LABS: Add Urine Microscopic? YES; Appearance Urine Clear (Clear); Bilirubin Urine Negative (Negative); Blood Urine Negative (Negative); Color Urine Light Yellow (Yellow); Glucose Urine UA Negative (Negative); Ketones Urine Negative (Negative); Leukocyte Esterase Ur 1+ LEU/UL (Negative); Nitrate Urine Negative (Negative); Protein Urine Negative (Negative); Urobilinogen Urine 0.2 mg/dL (0.2-1.0)
[2024-11-28 10:29] LABS: Bacteria Urine Trace /hpf; RBC Urine 0-2 /hpf (0-2); Squamous Epithelial Cell Urine Rare /hpf (Few)
[2024-11-28 10:45] LABS: Alanine Aminotransferase 128 U/L (14-59); Albumin Level 3.4 g/dL (3.4-5.0); Alkaline Phosphatase 134 U/L (46-116); Anion Gap 7 mmol/L (4-12); Aspartate Amino Transferase 81 U/L (15-37); Bilirubin,Total 0.4 mg/dL (0.00-1.00); Blood Urea Nitrogen 32 mg/dL (7-18); Calcium 9.3 mg/dL (8.5-10.1); Carbon Dioxide 29 mmol/L (21-32); Chloride 105 mmol/L (98-108); Estimated Glomerular Filt Rate 57; Glucose 169 mg/dL (70-99); Osmolality Calculated 302 mOsm/kg (285-295); Potassium 4.6 mmol/L (3.5-5.1); Sodium 141 mmol/L (136-145); Total Protein 6.7 g/dL (6.4-8.2)
--- OUTSIDE RECORDS SUMMARY | 2024-11-28 11:18 | XMS_ITS | Clinical Summary ---
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
--- OUTSIDE RECORDS SUMMARY | 2024-11-28 11:18 | XMS_ITS | Continuity of Care Document ---
Author Organization [facility] [place] [address] [place] [address] Phone Care Team Providers Care Wood Milling Machine Tender Name Role Phone Femi Wiggins MD Unavailable [...] Date Provider Providers Copied on Encounter [facility], [address], [place], [place], [address], [place] tel:[phone] SEC Jason SARMIENTO Professional Diabetic eye exam (chief complaint) Type 2 diabetes mellitus without complication sPresence of intraocular lensExdtve age-rel mclr degn, right eye, with inact chrdl neovasNexdtv e age-related mclr degn, left eye, early dry stage 3 Feliciano Kahn. [address] [facility], [facility] [place], [address], [place]. tel:[phone] Referring Provider: Angelina Marroquin MD K, [address] [facility], [address], [place], [address]. tel:[phone] Office/outpa tient Visit, Est [facility], [address] [employer] [address], [place], [place], [address], tel:[phone] SEC [place] Professional 6 month Complete (chief complaint) Presence of intraocular lensExdtve age-rel mclr degn, right eye, with inact chrdl neovasHistor y of endophthalmi tisOther secondary cataract, right eyeType 2 diabetes mellitus without complication sVitreous degeneration , bilateral Maurice- 2 Jerrica OD Denise. [facility] [employer], [address], [place], [place], [address], [place]. tel:[phone] Referring Provider: Angelina Dela Cruz, [address] [place] [address], [facility] [address], [place], [address]. tel:[phone] [facility], [facility] [employer] [address], [place], [place], [address], tel:[phone] SEC Jason SARMIENTO Professional 1 month s/p PCIOL (chief complaint) Post op visit Aug- 1 Jerrica OD Denise. [facility] [employer], [address], [place], [place], [address], [place]. tel:[phone] Referring Provider: Angelina Dela Cruz, [address] [facility], [facility] [address], [place], [address]. tel:[phone] [facility], [address] [employer] [address], [place], [place], [address], tel:[phone] SEC Jason SARMIENTO Professional 1 wk po PCIOL OS (08/14/21) (chief complaint) Post op visit Dec-0 1 Jerrica OD Denise. [facility] [employer], [address], [place], [place], [address], . tel:[phone] Referring Provider: Angelina Dela Cruz, [address] [facility], [address], [place], [address]. tel:[phone] [facility], [address], [place], [place], [address], [place] tel:[phone] SEC [place] Professional 1 day s/p PCIOL (chief complaint) Post op visit 0 1 Jerrica BRYANT Denise. [address] [place] [address] [address], [address], [place], [place], [address], [place]. tel:[phone] Referring Provider: Angelina Dela Cruz, [address] [facility], [facility] [address], [place], [address]. tel:[phone] [facility], [address], [place], [place], [address], [place] tel:[phone] [facility] No Information 1 Feliciano Kahn. [address], [address] [place], [address], [place]. tel:[phone] Referring Provider: Angelina Dela Cruz, [address] [place] [address], [facility] [address], [place], [address]. tel:[phone] [facility], [address], [place], [place], [address], [place] [phone] SEC [place]ERMIN[place] Professional No Information 1 Feliciano Kahn. [address] [facility], [address], [place], [place], [address], [place]. tel:[phone] Referring Provider: Angelina Dela Cruz, [address] [facility], [address], [place], [address]. tel:[phone] Office/outpa tient Visit, Est [facility], [address], [place], [place], [address], [place] [phone] SEC [place] Professional 6 month Cataract check (chief complaint) Exdtve age-rel mclr degn, right eye, with inact chrdl neovasType 2 diabetes mellitus without complication sNexdtve age-related mclr degn, left eye, early dry stageCombine d forms of age-related cataract, left eye Oct-2 1 Feliciano Kahn. [address], [address] [place], [address], [place]. tel:[phone] Referring Provider: Angelina Dela Cruz, [address] [facility], [address], [place], [address]. tel:[phone] [facility], [address], [place], [place], [address], [place] tel:[phone] SEC Jason SARMIENTO Professional 6 month Cataract check (chief complaint) Nexdtve age-related mclr degn, left eye, early dry stageExdtve age-rel mclr degn, right eye, with inact chrdl neovasPseudo phakia of right eyeAge-relat ed nuclear cataract, left eyeOther secondary cataract, right eyeVitreous degeneration , bilateralTyp e 2 diabetes mellitus without complication s Apr-2 1 Feliciano Kahn. [address], [address], [place], [place], [address], [place]. tel:[phone] Referring Provider: Angelina Dela Cruz, [address] [facility], [address], [place], [address]. tel:[phone] [facility], [address], [place], [place], [address], [place] [phone] SEC Jason [place] Professional No Information Apr-0 1 Feliciano Kahn. [address], [address], [place], [place], [address], [place]. tel:[phone] Office/outpa tient Visit, Est [facility] [place] [facility], [address] [place] [address] [address], [place], [place], [address], tel:[phone] SEC Jason SARMIENTO Professional Complete exam (chief complaint) Type 2 diabetes mellitus without complication sPseudophaki a of right eyeNexdtve age-related mclr degn, left eye, early dry stageCombine d forms of age-related cataract, left eyeOther secondary cataract, right eyeExdtve age-rel mclr degn, right eye, with inact chrdl neovas Oct-2 7202 0 Feliciano Kahn. [address] [facility], [address], [place], [place], [address], [place]. tel:[phone] Referring Provider: Angelina Dela Cruz, [address] [place] [address], [facility] [address], [place], [address]. tel:[phone] [facility], [address] [place] [address] [address], [place], [place], [address], tel:[phone] SEC Jason SARMIENTO Professional Postop PCIOL OD (11/30/19) (chief complaint) Post op visit Dec-2 202 0 Bety OD Fermín. [address] [facility], [address], [place], [address], [place]. tel:[phone] Referring Provider: Angelina Dela Cruz, [address] [place] [address], [address], [place], [address]. tel:[phone] [facility], [address] [place] [address] [address], [place], [place], [address], [place] tel:[phone] SEC Cool N Shelbiyonis 1 week s/p PCIOL (chief complaint) Post op visit Nov-3 0-202 0 Kristy Funes. [address] [place] [address] Drive, [address], [place], [place], [address], [place]. tel:[phone] Referring Provider: Angelina Dela Cruz, [address] [facility], [facility] [address], [place], [address]. tel:[phone] [facility], [address], [place], [place], [address], [place] tel:[phone] SEC Jason SARMIENTO Professional 1 day s/p PCIOL (chief complaint) Post op visit 0 Bety MANNY Fermín. [address] [facility], [address]th [address], [place], [address], [place]. tel:[phone] Referring Provider: Angelina Dela Cruz, [address] [facility], [address], [place], [address]. tel:[phone] [facility], [address], [place], [place], [address], [place] tel:[phone] [facility] No Information 0 Feliciano Kahn. [address] [facility], [facility] [place], [place], [address], [place]. tel:[phone] Referring Provider: Angelina Dela Cruz, [address] [facility], [address], [place], [address]. tel:[phone] [facility], [address], [place], [place], [address], [place] tel:[phone] SEC Jason SARMIENTO Professional No Information 0 Feliciano Kahn. [address] [facility], [facility] [place], [address], [place]. tel:[phone] Referring Provider: Angelina Dela Cruz, [address] [facility], [address], [place], [address]. tel:[phone] Office/outpa tient Visit, [facility], [address], [place], [place], [address], [place] tel:[phone] SEC Jason SARMIENTO Professional Cataract evaluation (chief complaint) Combined forms of age-related cataract, bilateralTyp e 2 diabetes mellitus without complication sNexdtve age-related mclr degn, left eye, early dry stagePunctat e keratitis, left eyeHistory of endophthalmi tisExdtve age-rel mclr degn, right eye, with inact chrdl neovas 0-202 0 Feliciano Kahn. [address] [facility], [address], [place], [place], [address], [place]. tel:[phone] Referring Provider: Angelina Marroquin MD K, [address] [facility], [address], [place], [address]. tel:[phone] [facility] [place] [facility], [address], [place], [place], [address], [place] tel:[phone] SEC Jason GUILLERMINA Professional No Information 0 Feliciano Kahn. [address] [facility], [facility] [address], [place], [place], [address], [place]. tel:[phone] [facility], [address], [place], [place], [address], [place] tel:[phone] SEC Jason GUILLERMINA Professional Blurry vision (chief complaint) Lesion of eyelidNuclea r sclerosis of both eyesMacular pigment epithelial detachment, rightType 2 diabetes mellitus without complication s 3-201 6 Feliciano Kahn. [address] [facility], [facility] [address], [place], [place], [address], [place]. tel:[phone] Referring Provider: Sharonda Aparicio OD, [facility] [address] [facility], [place], [address]. tel:[phone] Family History Family Member Type Diagnosis Age At Onset No Information Payers Payer name Insurance type Covered alliance party ID Authoriza tion(s) [place] GRECIA [id number] Aet[employer] Mdcr Supp CI [id number] Social History Type Description Quantity Date Captured [...]
--- OUTSIDE RECORDS SUMMARY | 2024-11-28 11:18 | XMS_ITS | Referral Summary ---
Author Organization [facility] [id number] Address [address] [place] [address] Care Team Providers Care Internet Consultant Name Role Phone Provider, No Pcp Primary Care Provider Unavailab le Source Comments [facility],non-owned Affiliates and Associated Physician Practices is amultiple site organization consisting of ambulatory clinics and hospital sitesin [place], [place], [place] and [place]. This disclosure is being madepursuant to the Care Everywhere program and may not contain all information available regarding this patient. 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 5N ACUTE [address] [place] [address] Austin Stapleton MD Esechie, Aimalohi, MD Linares, [...] Recorded Patient Health Questionnaire-2 Score 0 09/03/2024 [facility] - Occupational Stress [...] in the past 12 m [facility], were you homeless or living in a usp (including now)? No 08/31/2024 Sex and Gender Information Value Date Recorded Sex Assigned at Not on file Gender Identity Not on file Sexual Orientation Not on file Last Filed Vital Signs Vital Sign Reading Time Taken Comments Blood Pressure 141/70 09/03/2024 8:04 AM FLORAL DECORATOR Pulse 105 09/03/2024 8:04 AM FLORAL DECORATOR Temperature 36.6 C (97.9 F) 09/03/2024 8:04 AM FLORAL DECORATOR Respiratory Rate 18 09/03/2024 8:04 AM FLORAL DECORATOR Oxygen Saturation 100% 09/03/2024 8:04 AM FLORAL DECORATOR Inhaled Oxygen Concentration - - Weight 56.7 kg (125 lb) 09/01/2024 8:07 PM FLORAL DECORATOR Height 162.6 cm (5' 4 ) 09/01/2024 8:07 PM FLORAL DECORATOR Body Mass Index 21.46 09/01/2024 8:07 PM FLORAL DECORATOR Functional Status Functional Status Response Date of [...] POINT OF CARE Routine 09/03/2024 12:25 PM FLORAL DECORATOR PHOSPHORUS BLOOD Routine 09/03/2024 2:10 AM FLORAL DECORATOR 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) MAGNESIUM BLOOD Routine 09/03/2024 2:10 AM FLORAL DECORATOR 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) CBC W AUTO DIFFERENTIAL Routine 09/03/2024 2:10 AM FLORAL DECORATOR 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) BASIC METABOLIC PANEL (CALCIUM TOTAL) Routine 09/03/2024 2:10 AM FLORAL DECORATOR 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) GLUCOSE - POINT OF CARE Routine 09/02/2024 11:25 PM FLORAL DECORATOR GLUCOSE - POINT OF CARE Routine 09/02/2024 9:19 PM FLORAL DECORATOR MRI BRAIN WO CONTRAST Routine 09/02/2024 4:44 PM FLORAL DECORATOR 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) GLUCOSE - POINT OF CARE Routine 09/02/2024 11:58 AM FLORAL DECORATOR VAS BILATERAL VENOUS DUPLEX LE Routine 09/02/2024 11:36 AM FLORAL DECORATOR Acute deep vein thrombosis (DVT) of distal vein of left lower extremity (HCC) GLUCOSE - POINT OF CARE Routine 09/02/2024 3:55 AM FLORAL DECORATOR CBC W AUTO DIFFERENTIAL Routine 09/02/2024 1:56 AM FLORAL DECORATOR 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) PHOSPHORUS BLOOD Routine 09/02/2024 1:55 AM FLORAL DECORATOR 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) MAGNESIUM BLOOD Routine 09/02/2024 1:55 AM FLORAL DECORATOR 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) BASIC METABOLIC PANEL (CALCIUM TOTAL) Routine 09/02/2024 1:55 AM FLORAL DECORATOR 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) GLUCOSE - POINT OF CARE Routine 09/01/2024 11:57 PM FLORAL DECORATOR GLUCOSE - POINT OF CARE Routine 09/01/2024 8:07 PM FLORAL DECORATOR GLUCOSE - POINT OF CARE Routine 09/01/2024 4:05 PM FLORAL DECORATOR GLUCOSE - POINT OF CARE Routine 09/01/2024 11:21 AM FLORAL DECORATOR GLUCOSE - POINT OF CARE Routine 09/01/2024 7:57 AM FLORAL DECORATOR GLUCOSE - POINT OF CARE Routine 09/01/2024 3:52 AM FLORAL DECORATOR PHOSPHORUS BLOOD Routine 09/01/2024 1:42 AM FLORAL DECORATOR 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) MAGNESIUM BLOOD Routine 09/01/2024 1:42 AM FLORAL DECORATOR 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) CBC W AUTO DIFFERENTIAL Routine 09/01/2024 1:42 AM FLORAL DECORATOR 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) BASIC METABOLIC PANEL (CALCIUM TOTAL) Routine 09/01/2024 1:42 AM FLORAL DECORATOR 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) GLUCOSE - POINT OF CARE Routine 09/01/2024 12:18 AM FLORAL DECORATOR GLUCOSE - POINT OF CARE Routine 08/31/2024 9:27 PM FLORAL DECORATOR GLUCOSE - POINT OF CARE Routine 08/31/2024 6:32 PM FLORAL DECORATOR GLUCOSE - POINT OF CARE Routine 08/31/2024 5:44 PM FLORAL DECORATOR BLOOD TYPE VERIFICATION STAT 08/31/2024 4:12 PM FLORAL DECORATOR HEMOGLOBIN A1C Add on 08/31/2024 4:12 PM FLORAL DECORATOR 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) TROPONIN-I HIGH SENSITIVE BASELINE + 1HR Add on 08/31/2024 4:12 PM FLORAL DECORATOR 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 STAT 08/31/2024 11:02 AM FLORAL DECORATOR COMPREHENSIVE METABOLIC PANEL STAT 08/31/2024 11:02 AM FLORAL DECORATOR CBC W AUTO DIFFERENTIAL STAT 08/31/2024 11:[address] ANGIO BRAIN NECK STROKE STAT 08/31/2024 11:00 AM FLORAL DECORATOR Generalized weakness CREATININE - POCT INTERFACED Routine 08/31/2024 10:53 AM FLORAL DECORATOR INR WHOLE BLOOD - POINT OF CARE (IP) STROKE Routine 08/31/2024 10:[address] BRAIN STROKE STAT 08/31/2024 10:50 AM FLORAL DECORATOR Generalized weakness GLUCOSE - POINT OF CARE Routine 08/31/2024 10:45 AM FLORAL DECORATOR from Last 3 Months Results * (ABNORMAL) GLUCOSE - POINT OF CARE (09/03/2024 12:25 PM FLORAL DECORATOR) Only the most recent of17 resultswithin the time period is included. Glucose WB/POC 168(H) 70 - 99 mg/dL 09/03/2024 2:56 PM FLORAL DECORATOR [facility] Specimen Type Arterial 09/03/2024 2:56 PM FLORAL DECORATOR [facility] Blood BLOOD SPECIMEN / Unknown 09/03/2024 12:25 PM FLORAL DECORATOR 09/03/2024 2:56 PM FLORAL DECORATOR Reina Ma MD LAB - POINT OF CARE ORDERABLES [facility] [address] [place] [address], [facility] [phone] * (ABNORMAL) CBC W AUTO DIFFERENTIAL (09/03/2024 2:10 AM FLORAL DECORATOR) Only the most recent of4 resultswithin the [...] Lab Venipuncture / Unknown 09/03/2024 2:10 AM FLORAL DECORATOR 09/03/2024 3:02 AM [facility] Reina Ma MD LAB - HEMATOLOGY ORD ERABLES [facility] [address] [place] [address], [facility] [phone] * (ABNORMAL) BASIC METABOLIC PANEL (CALCIUM TOTAL) (09/03/2024 2:10 AM FLORAL DECORATOR) Only the most recent of3 resultswithin the [...] Lab Venipuncture / Unknown 09/03/2024 2:10 AM FLORAL DECORATOR 09/03/2024 3:02 AM FLORAL DECORATOR Reina Ma MD LAB - CHEMISTRY [facility] [address] [address], [place] [phone] * PHOSPHORUS BLOOD (09/03/2024 2:10 AM FLORAL DECORATOR) Only the most recent of3 resultswithin the time period is included. Phosphorus 3.1 2.9 - 5.1 mg/dL 09/03/2024 3:29 AM [facility] Blood BLOOD SPECIMEN / Unknown Lab Venipuncture / Unknown 09/03/2024 2:10 AM FLORAL DECORATOR 09/03/2024 3:02 AM FLORAL DECORATOR Reina Ma MD LAB - CHEMISTRY [facility] [address] [address], [place] [phone] * MAGNESIUM BLOOD (09/03/2024 2:10 AM FLORAL DECORATOR) Only the most recent of3 resultswithin the time period is included. Magnesium 2.2 1.6 - 2.6 mg/dL 09/03/2024 3:29 AM FLORAL DECORATOR [facility] Blood BLOOD SPECIMEN / Unknown Lab Venipuncture / Unknown 09/03/2024 2:10 AM FLORAL DECORATOR 09/03/2024 3:02 AM FLORAL DECORATOR Reina Ma MD LAB - CHEMISTRY [facility] Organization Address City/State/ZIP Co de Phone Number [facility] [address] [place] [address], [facility] [phone] * MRI Brain Wo Contrast (09/02/2024 4:44 PM FLORAL DECORATOR) Anatomical Region Laterality Modality Head Magnetic Resonan ce 09/02/2024 4:25 PM FLORAL DECORATOR Impressions 09/04/2024 12:47 PM FLORAL DECORATOR IMPRESSION: 1. No evidence of acute infarct. [...] Report dictated by Roberto Eden MD, PhD (ceo and president). I, Loren Marin MD have personally reviewed and interpreted this examination/study. > Interpreting Provider: Loren Marin MD on 09/04/2024 12:47 PM Narrative 09/04/2024 12:47 PM FLORAL DECORATOR PROCEDURE: MRI BRAIN WO CONTRAST, DATE/TIME OF EXAM: 09/02/2024 4:44 PM, LOCATION [facility] INDICATION: I61.2: Nontraumatic hemorrhage of [...] CONTRAST, DATE/TIME OF EXAM: 09/02/2024 4:44PM, LOCATION [facility] INDICATION: I61.2: Nontraumatic hemorrhage of [...] Report dictated by Roberto Eden MD, PhD (ceo and president). I, Loren Marin MD have personally reviewed and interpreted this examination/study. > Interpreting Provider: Loren Marin MD on 09/04/2024 12:47 PM Reina Ma MD MR ORDERABLES * VAS Bilateral Venous Duplex Le (09/02/2024 11:36 AM FLORAL DECORATOR) Anatomical Region Laterality Modality Lower Extremity Ultrasound 09/02/2024 8:59 AM FLORAL DECORATOR Narrative Procedure Note Bon Garcia MD - 09/02/2024 Reina Ma MD VASCULAR LAB ORDERAB LES * TROPONIN-I HIGH SENSITIVE BASELINE + 1HR (08/31/2024 4:12 PM FLORAL DECORATOR) Pathologist [facility] Troponin I High Sensitive <3 <=14 ng/L 08/31/2024 5:08 PM FLORAL DECORATOR [facility]ORY [facility] Blood BLOOD SPECIMEN / Unknown Lab Venipuncture / Unknown 08/31/2024 4:12 PM FLORAL DECORATOR 08/31/2024 4:32 PM FLORAL DECORATOR Ayan Livingston MD LAB - CHEMISTRY TAISHAE ROLY [facility] [address] [place] [address], [facility] [phone] * BLOOD TYPE VERIFICATION (08/31/2024 4:12 PM FLORAL DECORATOR) ABO Rh A POS 08/31/2024 5:1 3 PM FLORAL DECORATOR [facility] BLOOD BANK LAB Blood Bank BLOOD SPECIMEN / Unknown Lab Venipuncture / Unknown 08/31/2024 4:12 PM FLORAL DECORATOR 08/31/2024 4:40 PM FLORAL DECORATOR Ayan Livingston MD LAB - BLOOD BANK ORD TIFFANY Performing Organization Address City/[facility]/ZIP Co de Phone Number [facility] BLOOD BANK LAB [address] [place] [address], [facility] [phone] * (ABNORMAL) HEMOGLOBIN A1C (08/31/2024 4:12 PM FLORAL DECORATOR) Hemoglobin A1c 6.0(H) <=5.6 % 09/01/2024 8:55 AM [facility] Estimated Average Glucose 126 mg/dL 09/01/2024 8:55 AM [facility] Comment: HbA1c Interpretation: Normal : < 5.7% Pre-diabetes: 5.7-6.4% Diabetes: Equal to or greater than 6.5% Test results diagnostic of diabetes should be repeated for confirmation. Treatment target values recommended by ADA and other clinical organizations should be used to evaluate metabolic control in patients. Reference: [place] Diabetes Association, Standards of Care in Diabetes -2020 In patients 70 years and older consider HbA1c target range of 7.0-7.5% (Reference: Davon Goldstein et al. JAMDA. 2012) The Sebia assay for the measurement of HbA1c is a National Glycohemoglobin Standardization Program (NGSP) certified method. Blood BLOOD SPECIMEN / Unknown Lab Venipuncture / Unknown 08/31/2024 4:12 PM FLORAL DECORATOR 08/31/2024 4:33 PM FLORAL DECORATOR Ayan Livingston MD LAB - CHEMISTRY JONG DUNHAM [facility] [address] [place] [address], [facility] [phone] * (ABNORMAL) URINALYSIS REFLEX TO MICROSCOPIC NO CULTURE (08/31/2024 2:54 PM FLORAL DECORATOR) Color UA Yellow Straw, Yellow 08/31/2024 3:23 PM [facility] Clarity UA Clear Clear 08/31/2024 3:23 PM [facility] Specific [place] UA 1.029 1.005 - 1.030 08/31/2024 3:23 PM [facility] pH UA 5.0 5.0 - 8.0 pH 08/31/2024 3:23 PM [facility] Protein UA Negative Negative 08/31/2024 3:23 PM [facility] Glucose UA Negative Negative 08/31/2024 3:23 PM [facility] Ketone UA Negative Negative 08/31/2024 3:23 PM [facility] Bilirubin UA Negative Negative 08/31/2024 3:23 PM [...] Unknown Collection / Unknown 08/31/2024 2:54 PM FLORAL DECORATOR 08/31/2024 3:00 PM FLORAL DECORATOR Narrative [facility] - 08/31/2024 3:23 PM FLORAL DECORATOR Reina Ma MD LAB - URINALYSIS ORD ERABLES [facility] [address] [place] [address], [facility] [phone] * CULTURE URINE (08/31/2024 2:54 PM FLORAL DECORATOR) Culture Urine No growth (<100 CFU/mL) KRISTIN 09/01/2024 9:37 PM FLORAL DECORATOR [facility] MICROBIOLOGY Urine URINE SPECIMEN OBTAINED BY SINGLE CATHETERIZATION OF URINARY BLADDER / Unknown Collection / Unknown 08/31/2024 2:54 PM FLORAL DECORATOR 08/31/2024 3:00 PM FLORAL DECORATOR Reina Ma MD LAB - MICROBIOLOGY O RDERABLES [facility] MICROBIOLOGY [address] [place] [address], [facility] [phone] * URINE DRUG SCREEN IMMUNOASSAY (08/31/2024 2:54 PM FLORAL DECORATOR) Amphetamines Screen Urine Negative Negative: < 1000 ng/mL 08/31/2024 3:25 PM FLORAL DECORATOR [facility] Barbiturates Screen Urine Negative Negative: < 200 ng/mL 08/31/2024 3:25 PM [facility] Benzodiazepine Screen Urine Negative Negative: < 200 ng/mL 08/31/2024 3:25 PM FLORAL DECORATOR [facility] Opiates Urine Negative Negative: < 300 ng/mL 08/31/2024 3:25 PM FLORAL DECORATOR [facility] Cocaine Metabolites Urine Negative Negative: < 300 ng/mL 08/31/2024 3:25 PM [facility] Phencyclidine Screen Urine Negative Negative: < 25 ng/ml 08/31/2024 3:25 PM [facility] Cannabinoids Screen Urine Negative Negative: <50 ng/mL 08/31/2024 3:25 PM [facility] Methadone Screen Urine Negative Negative: < 300 ng/mL 08/31/2024 3:25 PM FLORAL DECORATOR [facility] Fentanyl Screen Urine Negative Negative: <1.5 ng/mL 08/31/2024 3:25 PM [facility] Urine URINE / Unknown Collection / Unknown 08/31/2024 2:54 PM FLORAL DECORATOR 08/31/2024 3:00 PM FLORAL DECORATOR Narrative [facility] - 08/31/2024 3:25 PM FLORAL DECORATOR The Urine Toxicology Screening Panel does not screen for Propoxyphene, Meprobamate, Carisoprodol, Trazodone, hxlm-jjy-ggovans medications and/or volatiles (Acetone, Isopropanol, Methanol or Ethylene Glycol). Ethanol, Salicylate, Acetaminophen, Tricyclic Antidepressants and several therapeutic drugs may be individually assayed in serum or plasma specimen. Toxicology testing by the [facility] is an aid to medical diagnosis and treatment of patients. No documented chain of custody was maintained. Results are intended to be used for clinical purposes only. Reina Ma MD LAB - URINE CHEMISTR Y ORDERABLES Performing Organization Address City/[facility] Co de Phone Number [facility] [address] [place] [address], [facility] [phone] * EKG 12-LEAD (08/31/2024 11:06 AM FLORAL DECORATOR) Ventricular Rate 76 BPM SL MUSE Atrial Rate 76 BPM [facility] MUSE P-R Interval 384 ms [facility] MUSE QRS Duration ms 160 ms [facility] MUSE Q-T Interval ms 432 ms [facility] MUSE QTC Calculation (Bezet) 486 ms [facility] MUSE Calculated R [place] -92 degrees [facility] MUSE Calculated T [place] 43 degrees [facility] MUSE Interpretation EKG SINUS RHYTHM WITH 1ST DEGREE A-V BLOCK RIGHT BUNDLE BRANCH BLOCK ABNORMAL ECG NO PREVIOUS ECGS AVAILABLE Confirmed by KOLE GOODEN MD ([id number]) on 08/31/2024 5:06:06 PM [facility] MUSE 08/31/2024 11:0 6 AM FLORAL DECORATOR 08/31/2024 5:06 PM FLORAL DECORATOR Ayan Livingston MD ECG ORDERABLES Performing Organization Address [facility] Co de Phone Number [facility] MUSE * (ABNORMAL) PTT SLH (08/31/2024 11:02 AM FLORAL DECORATOR) APTT 40.4(H) 23.0 - 38.4 Seconds 08/31/2024 11:30 AM [facility] Comment:Suggested therapeuti c range for full dose I.V. unfractionated heparin therapy for venous thromboembolism is 71 to 109 seconds. Blood BLOOD SPECIMEN / Unknown Venipuncture / Unknown 08/31/2024 11:02 AM FLORAL DECORATOR 08/31/2024 11:10 AM FLORAL DECORATOR Reina Ma MD LAB - COAGULATION OR DERABLES Performing Organization Address City/[facility]/ZIP Co de Phone Number [facility] [address] [place] [address], [facility] [phone] * (ABNORMAL) PT-INR [facility] (08/31/2024 11:02 AM FLORAL DECORATOR) Pathologist [facility] PT 18.3(H) 12.1 - 14.8 Seconds 08/31/2024 [...] Unknown Venipuncture / Unknown 08/31/2024 11:02 AM FLORAL DECORATOR 08/31/2024 11:10 AM FLORAL DECORATOR Ayan Livingston MD LAB - COAGULATION OR DERABLES [facility] [address] [place] [phone], [facility] [phone] * TYPE + SCREEN PANEL (08/31/2024 11:02 AM FLORAL DECORATOR) Pathologist [facility] Antibody Screen NEG 11:44 AM [facility] BLOOD BANK LAB ABO Rh A POS 08/31/2024 11:44 AM [facility] BLOOD BANK LAB Blood Bank BLOOD SPECIMEN / Unknown Venipuncture / Unknown 08/31/2024 11:02 AM FLORAL DECORATOR 08/31/2024 11:08 AM [facility] Ayan Livingston MD LAB - BLOOD BANK ORD ERABLES Performing Organization Address [facility]/State/ZIP Co de Phone Number [facility] BLOOD BANK LAB [address] [place] [address] [phone] * (ABNORMAL) COMPREHENSIVE METABOLIC PANEL (08/31/2024 11:02 AM [facility]) BUN 28(H) 7 - 26 mg/dL 08/31/2024 11:36 AM [facility] Creatinine 0.79 0.56 - 0.96 mg/dL 08/31/2024 [...] Unknown Venipuncture / Unknown 08/31/2024 11:02 AM FLORAL DECORATOR 08/31/2024 11:10 AM FLORAL DECORATOR Ayan Livingston MD [facility] Organization Address City/State/ZIP Co de Phone Number [facility] [address] [place] [phone], [facility] [phone] * CT ANGIO BRAIN NECK STROKE (08/31/2024 11:00 AM FLORAL DECORATOR) Anatomical Region Laterality Modality Head Computed Tomogra phy 08/31/2024 11:2 3 AM FLORAL DECORATOR Impressions 08/31/2024 12:09 PM FLORAL DECORATOR IMPRESSION: 1. No large arterial occlusions or significant stenoses identified in the head or neck. 2. Multiple bilateral inferior lobar thyroid nodules measuring up to 1 cm. This preliminary report was dictated by Demar Elkins MD (DR/IR Resident). I, Loren Marin MD have personally reviewed and interpreted this examination/study. > Interpreting Provider: Loren Marin MD on 08/31/2024 12:09 PM Narrative 08/31/2024 12:09 PM FLORAL DECORATOR PROCEDURE: CT ANGIO BRAIN NECK STROKE, DATE/TIME OF EXAM: 08/31/2024 11:00 AM, LOCATION [facility] INDICATION: Code Stroke ADDITIONAL CLINICAL [...] DATE/TIME OF EXAM: 08/31/2024 11:00 AM, LOCATION [facility] INDICATION: Code Stroke ADDITIONAL CLINICAL [...] OF CARE (IP) STROKE (08/31/2024 10:53 AM FLORAL DECORATOR) INR 1.2 0.9 - 1.2 08/31/2024 10:54 AM [facility] Device [id number] 08/31/2024 10:54 AM [facility] Ict Security Specialist ID [id number] 08/31/2024 10:54 AM [facility] Blood BLOOD SPECIMEN / Unknown 08/31/2024 10:53 AM FLORAL DECORATOR 08/31/2024 10:54 AM FLORAL DECORATOR Provider Unknown LAB - POINT OF CARE ORDERABLES [facility] [address] [place] [address], [facility] [phone] * CREATININE - POCT INTERFACED (08/31/2024 10:53 AM [facility]) Creatinine POCT 0.56 0.30 - 1.30 mg/dL 08/31/2024 11:00 AM [facility] eGFR >90 >=90 mL/min/1.7 3 m2 08/31/2024 11:00 AM [facility] Blood BLOOD SPECIMEN / Unknown 08/31/2024 10:53 AM FLORAL DECORATOR 08/31/2024 11:00 AM FLORAL DECORATOR Provider Unknown LAB - POINT OF CARE ORDERABLES Performing Organization Address City/[facility]/ZIP Co de Phone Number [facility] [address] [place] [phone], [facility] [phone] * CT BRAIN - Stroke (08/31/2024 10:50 AM FLORAL DECORATOR) Anatomical Region Laterality Modality Head Computed Tomogra phy 08/31/2024 11:0 4 AM FLORAL DECORATOR Impressions 08/31/2024 11:09 AM FLORAL DECORATOR IMPRESSION: 1. A small amount of hyperattenuation [...] 08/31/2024 11:09 AM Narrative 08/31/2024 11:09 AM FLORAL DECORATOR PROCEDURE: CT BRAIN STROKE, DATE/TIME OF EXAM: 08/31/2024 10:50 AM, LOCATION [facility] INDICATION: Code Stroke ADDITIONAL CLINICAL [...] DATE/TIME OF EXAM: 08/31/2024 10:50 AM, LOCATION [facility] INDICATION: Code Stroke ADDITIONAL CLINICAL [...] 11:06 AM 09/03/2024 3:17 PM Care Teams Internet Consultant Relationship Specialty Start Date End Date Provider, No Pcp PCP - General 08/30/24
--- OUTSIDE RECORDS SUMMARY | 2024-11-28 11:18 | XMS_ITS | Clinical Summary ---
Author Organization [facility] Address [address] [place] [id number] Care Team Providers Care Doorperson Or Luggage Porter Name Role Phone Unavailable Primary Care Provider [...] age to complete this topic Insurance [facility]IC[facility]
--- OUTSIDE RECORDS SUMMARY | 2024-11-28 11:18 | XMS_ITS | Patient Health Summary ---
Author Organization [facility] Zeenoh Address [address] [place] [address] Care Team Providers Care Front End Drupal Developer Name Role Phone Provider, No Pcp Primary Care Provider Unavailab le Note from [facility],non-owned Affiliates and Associated Physician Practices is amultiple site organization consisting of ambulatory clinics and hospital sitesin [place], [place], [place] and [place]. This disclosure is being madepursuant to the Care Everywhere program and may not contain all information available regarding this patient. Last updated 18.[facility] Allergies * Unruly Inhibitors(Angioedema,Anaphylaxis) -High Criticality * [...] Recorded Patient Health Questionnaire-2 Score 0 09/03/2024 [facility] [place] of Occupat ional Health - Occupational Stress [...] any time in the past 12 m [facility], were you homeless or living in a fci (including now)? No 08/31/2024 Sex and Gender Information Value Date Recorded Sex Assigned at Not on file Gender Identity Not on file Sexual Orientation Not on file Last Filed Vital Signs Vital Sign Reading Time Taken Comments Blood Pressure 141/70 09/03/2024 8:04 AM OFFLINE EDITOR Pulse 105 09/03/2024 8:04 AM OFFLINE EDITOR Temperature 36.6 C (97.9 F) 09/03/2024 8:04 AM OFFLINE EDITOR Respiratory Rate 18 09/03/2024 8:04 AM OFFLINE EDITOR Oxygen Saturation 100% 09/03/2024 8:04 AM OFFLINE EDITOR Inhaled Oxygen Concentration - - Weight 56.7 kg (125 lb) 09/01/2024 8:07 PM OFFLINE EDITOR Height 162.6 cm (5' 4 ) 09/01/2024 8:07 PM OFFLINE EDITOR Body Mass Index 21.46 09/01/2024 8:07 PM OFFLINE EDITOR Procedures * GLUCOSE - POINT OF CARE(Performed [...] - POINT OF CARE (09/03/2024 12:25 PM OFFLINE EDITOR) Only the most recent of17 resultswithin the time period is included. Glucose WB/POC 168(H) 70 - 99 mg/dL 09/03/2024 2:56 PM OFFLINE EDITOR [facility] Specimen Type Arterial 09/03/2024 2:56 PM OFFLINE EDITOR [facility] Blood BLOOD SPECIMEN / Unknown 09/03/2024 12:25 PM OFFLINE EDITOR 09/03/2024 2:56 PM OFFLINE EDITOR Reina Ma MD LAB - POINT OF CARE ORDERABLES [facility] [address] [place] [address], [facility] [phone] * (ABNORMAL) CBC W AUTO DIFFERENTIAL (09/03/2024 2:10 AM OFFLINE EDITOR) Only the most recent of4 resultswithin the time period is included. WBC 9.3 4.0 - 10.7 x10E9/L 09/03/2024 3:08 AM [facility] RBC Count 3.38(L) 3.90 - 5.20 x10E12/L 09/03/2024 3:08 AM [facility] Hemoglobin 9.0(L) 11.9 - 15.8 g/dL 09/03/2024 3:08 AM [facility] Hematocrit 28.4(L) 34.8 - 46.1 % 09/03/2024 3:08 AM [facility] MCV 84.0 80.0 - 98.0 fL 09/03/2024 3:08 AM [facility] MCH 26.6(L) 26.7 - 33.6 pg 09/03/2024 3:08 AM [facility] MCHC 31.7 31.7 - 36.3 g/dL 09/03/2024 3:08 AM [facility] RDW-CV 15.0(H) 11.3 - 14.8 % 09/03/2024 3:08 AM [facility] Platelet Count 356 150 - 420 x10E9/L 09/03/2024 3:08 AM [facility] MPV 9.6 7.8 - 11.4 fL 09/03/2024 3:08 AM [facility] Neutrophil % 56.8 41.0 - 74.0 % 09/03/2024 3:08 AM [facility] Lymphocyte % 28.1 17.0 - 47.0 % 09/03/2024 3:08 AM [facility] Monocyte % 11.5(H) 3.0 - 11.0 % 09/03/2024 3:08 AM [facility] Eosinophil % 2.8 0.0 - 7.0 % 09/03/2024 3:08 AM [facility] Basophil % 0.4 0.0 - 1.6 % 09/03/2024 3:08 AM [facility] Immature Granulocytes % 0.4 0.0 - 1.0 % 09/03/2024 3:08 AM [facility] Neutrophil Absolute 5.27 1.60 - 7.50 x10E9/L 09/03/2024 3:08 AM [facility] Lymphocyte Absolute 2.61 1.00 - 4.40 x10E9/L 09/03/2024 3:08 AM [facility] Monocyte Absolute 1.07(H) 0.15 - 1.00 x10E9/L 09/03/2024 3:08 AM [facility] Eosinophil Absolute 0.26 0.00 - 0.60 x10E9/L 09/03/2024 3:08 AM [facility] Basophil Absolute 0.04 0.00 - 0.13 x10E9/L 09/03/2024 3:08 AM [facility] Blood BLOOD SPECIMEN / Unknown Lab Venipuncture / Unknown 09/03/2024 2:10 AM OFFLINE EDITOR 09/03/2024 3:02 AM [facility] Reina Ma MD LAB - HEMATOLOGY ORD ERABLES [facility] [address] [place] [address], [facility] [phone] * (ABNORMAL) BASIC METABOLIC PANEL (CALCIUM TOTAL) (09/03/2024 2:10 AM OFFLINE EDITOR) Only the most recent of3 resultswithin the time period is included. BUN 26 7 - 26 mg/dL 09/03/2024 3:29 AM [facility] Creatinine 0.87 0.56 - 0.96 mg/dL 09/03/2024 3:29 AM [facility] Sodium 139 136 - 145 mmol/L 09/03/2024 3:29 AM [facility] Potassium 4.6(H) 3.5 - 4.5 mmol/L 09/03/2024 3:29 AM [facility] Chloride 109(H) 98 - 107 mmol/L 09/03/2024 3:29 AM [facility] CO2 22 22 - 29 mmol/L 09/03/2024 3:29 AM [facility] Glucose 125(H) 70 - 99 mg/dL 09/03/2024 3:29 AM [facility] Calcium 8.9 8.4 - 10.2 mg/dL 09/03/2024 3:29 AM [facility] Anion Gap 8 6 - 16 09/03/2024 3:29 AM [facility] BUN/Creatinine Ratio 30(H) 7 - 23 09/03/2024 3:29 AM [facility] Osmolality Calculated 294 275 - 295 mOsm/kg 09/03/2024 3:29 AM [facility] eGFR by CKD-EPI 69(L) >=90 mL/min/1.7 3 m2 09/03/2024 3:29 AM [facility] Blood BLOOD SPECIMEN / Unknown Lab Venipuncture / Unknown 09/03/2024 2:10 AM OFFLINE EDITOR 09/03/2024 3:02 AM OFFLINE EDITOR Reina Ma MD LAB - CHEMISTRY ORDE ROLY [facility] [place] [place] Organization Address City/State/ZIP Co de Phone Number [facility] [address] [place] [address], [facility] [phone] * PHOSPHORUS BLOOD (09/03/2024 2:10 AM OFFLINE EDITOR) Only the most recent of3 resultswithin the time period is included. Phosphorus 3.1 2.9 - 5.1 mg/dL 09/03/2024 3:29 AM [facility] Blood BLOOD SPECIMEN / Unknown Lab Venipuncture / Unknown 09/03/2024 2:10 AM OFFLINE EDITOR 09/03/2024 3:02 AM OFFLINE EDITOR Reina Ma MD LAB - CHEMISTRY ORDE RABLES Performing Organization Address City/[facility]/ZIP Co de Phone Number [facility] [address] [place] [address], [facility] [phone] * MAGNESIUM BLOOD (09/03/2024 2:10 AM OFFLINE EDITOR) Only the most recent of3 resultswithin the time period is included. Magnesium 2.2 1.6 - 2.6 mg/dL 09/03/2024 3:29 AM OFFLINE EDITOR [facility] Blood BLOOD SPECIMEN / Unknown Lab Venipuncture / Unknown 09/03/2024 2:10 AM OFFLINE EDITOR 09/03/2024 3:02 AM OFFLINE EDITOR Reina Ma MD LAB - CHEMISTRY JONG DUNHAM Performing Organization Address [facility] Co de Phone Number [place] [address] [place] [address], [facility] [phone] * MRI Brain Wo Contrast (09/02/2024 4:44 PM OFFLINE EDITOR) Anatomical Region Laterality Modality Head Magnetic Resonan ce 09/02/2024 4:25 PM OFFLINE EDITOR Impressions 09/04/2024 12:47 PM OFFLINE EDITOR IMPRESSION: 1. No evidence of acute infarct. [...] Report dictated by Roberto Eden MD, PhD (radiology interventional physician). I, Loren Marin MD have personally reviewed and interpreted this examination/study. > Interpreting Provider: Loren Marin MD on 09/04/2024 12:47 PM Narrative 09/04/2024 12:47 PM OFFLINE EDITOR PROCEDURE: MRI BRAIN WO CONTRAST, DATE/TIME OF EXAM: 09/02/2024 4:44 PM, LOCATION [facility] INDICATION: I61.2: Nontraumatic hemorrhage of right cerebral [...] CONTRAST, DATE/TIME OF EXAM: 09/02/2024 4:44PM, LOCATION [facility] INDICATION: I61.2: Nontraumatic hemorrhage of right cerebral [...] Report dictated by Roberto Eden MD, PhD (radiology interventional physician). I, Loren Marin MD have personally reviewed and interpreted this examination/study. > Interpreting Provider: Loren Marin MD on 09/04/2024 12:47 PM Reina Ma MD MR ORDERABLES * VAS Bilateral Venous Duplex Le (09/02/2024 11:36 AM OFFLINE EDITOR) Anatomical Region Laterality Modality Lower Extremity Ultrasound 09/02/2024 8:59 AM OFFLINE EDITOR Narrative Procedure Note Bon Garcia MD - 09/02/2024 Reina Ma MD VASCULAR LAB ORDERAB LES * TROPONIN-I HIGH SENSITIVE BASELINE + 1HR (08/31/2024 4:12 PM OFFLINE EDITOR) Troponin I High Sensitive <3 <=14 ng/L 08/31/2024 5:08 PM OFFLINE EDITOR [facility] Blood BLOOD SPECIMEN / Unknown Lab Venipuncture / Unknown 08/31/2024 4:12 PM OFFLINE EDITOR 08/31/2024 4:32 PM OFFLINE EDITOR Ayan Livingston MD LAB - CHEMISTRY ORDE RABMERLIN [facility] [address] [place] [address], [facility] [phone] * BLOOD TYPE VERIFICATION (08/31/2024 4:12 PM OFFLINE EDITOR) [facility] ABO Rh A POS 08/31/2024 5:1 3 PM [facility] BLOOD [facility] Blood Bank BLOOD SPECIMEN / Unknown Lab Venipuncture / Unknown 08/31/2024 4:12 PM OFFLINE EDITOR 08/31/2024 4:40 PM OFFLINE EDITOR Ayan Livingston MD LAB - BLOOD BANK ORD ERABLES Performing Organization Address [facility]/ZIP Co de Phone Number [facility] [address] [place] [address], [facility] [phone] * (ABNORMAL) HEMOGLOBIN A1C (08/31/2024 4:12 PM OFFLINE EDITOR) [facility] Hemoglobin A1c 6.0(H) <=5.6 % 09/01/2024 8:55 AM [facility] Estimated Average Glucose 126 mg/dL 09/01/2024 8:55 AM [facility] Comment: HbA1c Interpretation: Normal : < 5.7% Pre-diabetes: 5.7-6.4% Diabetes: Equal to or greater than 6.5% Test results diagnostic of diabetes should be repeated for confirmation. Treatment target values recommended by ADA and other clinical organizations should be used to evaluate metabolic control in patients. Reference: [place] [employer], Standards of Care in Diabetes -2020 In patients 70 years and older consider HbA1c target range of 7.0-7.5% (Reference: Davon Goldstein et al. JAMDA. 2012) The Sebia assay for the measurement of HbA1c is a National Glycohemoglobin Standardization Program (NGSP) certified method. Blood BLOOD SPECIMEN / Unknown Lab Venipuncture / Unknown 08/31/2024 4:12 PM OFFLINE EDITOR 08/31/2024 4:33 PM OFFLINE EDITOR Ayan Livingston MD LAB - CHEMISTRY JONG Burns Organization Address City/State/ZIP Co de Phone Number [facility] [address] [place] [address], [facility] [phone] * (ABNORMAL) URINALYSIS REFLEX TO MICROSCOPIC NO CULTURE (08/31/2024 2:54 PM OFFLINE EDITOR) Color UA Yellow Straw, Yellow 08/31/2024 3:23 PM [facility] Clarity UA Clear Clear 08/31/2024 3:23 PM [facility] Specific [place] UA 1.029 1.005 - 1.030 08/31/2024 3:23 PM [facility] pH UA 5.0 5.0 - 8.0 pH 08/31/2024 3:23 PM [facility] Protein UA Negative Negative 08/31/2024 3:23 PM [facility] Glucose UA Negative Negative 08/31/2024 3:23 PM [facility] Ketone UA Negative Negative 08/31/2024 3:23 PM [facility] Bilirubin UA Negative Negative 08/31/2024 3:23 PM [facility] Blood UA Negative Negative 08/31/2024 3:23 PM [facility] Nitrite UA Negative Negative 08/31/2024 3:23 PM [facility] Leukocyte Esterase Negative Negative 08/31/2024 3:23 PM [facility] Urobilinogen UA Negative Negative mg/dL 08/31/2024 3:23 PM [facility] RBC UA 3-5 None Seen, 0-2, 3-5 /HPF 08/31/2024 3:23 PM [facility] WBC UA 6-10(A) None Seen, 0-5 /HPF 08/31/2024 3:23 PM [facility] Squamous Epithelial Cells UA 0-2 None Seen, 0-2, 3-5 /HPF 08/31/2024 3:23 PM OFFLINE EDITOR [facility] Urine URINE SPECIMEN OBTAINED BY SINGLE CATHETERIZATION OF URINARY BLADDER / Unknown Collection / Unknown 08/31/2024 2:54 PM OFFLINE EDITOR 08/31/2024 3:00 PM OFFLINE EDITOR [facility] - 08/31/2024 3:23 PM OFFLINE EDITOR Reina Ma MD LAB - URINALYSIS ORD ERABLES Performing Organization Address City/[facility]/ZIP Co de Phone Number [facility] [address] [place] [address], [facility] [phone] * CULTURE URINE (08/31/2024 2:54 PM OFFLINE EDITOR) Culture Urine No growth (<100 CFU/mL) KRISTIN 09/01/2024 9:37 PM OFFLINE EDITOR [facility] Urine URINE SPECIMEN OBTAINED BY SINGLE CATHETERIZATION OF URINARY BLADDER / Unknown Collection / Unknown 08/31/2024 2:54 PM OFFLINE EDITOR 08/31/2024 3:00 PM OFFLINE EDITOR Reina Ma MD LAB - MICROBIOLOGY O RDERABLES [facility] [address] [place] [address], [facility] [phone] * URINE DRUG SCREEN IMMUNOASSAY (08/31/2024 2:54 PM OFFLINE EDITOR) Amphetamines Screen Urine Negative Negative: < 1000 ng/mL 08/31/2024 3:25 PM OFFLINE EDITOR [facility] Barbiturates Screen Urine Negative Negative: < 200 ng/mL 08/31/2024 3:25 PM [facility] Benzodiazepine Screen Urine Negative Negative: < 200 ng/mL 08/31/2024 3:25 PM [facility] Opiates Urine Negative Negative: < 300 ng/mL 08/31/2024 3:25 PM [facility] Cocaine Metabolites Urine Negative Negative: < 300 ng/mL 08/31/2024 3:25 PM [facility] Phencyclidine Screen Urine Negative Negative: < 25 ng/ml 08/31/2024 3:25 PM [facility] Cannabinoids Screen Urine Negative Negative: <50 ng/mL 08/31/2024 3:25 PM [facility] Methadone Screen Urine Negative Negative: < 300 ng/mL 08/31/2024 3:25 PM [facility] Fentanyl Screen Urine Negative Negative: <1.5 ng/mL 08/31/2024 3:25 PM [facility] Urine URINE / Unknown Collection / Unknown 08/31/2024 2:54 PM OFFLINE EDITOR 08/31/2024 3:00 PM [facility] Narrative [facility] - 08/31/2024 3:25 PM OFFLINE EDITOR The Urine Toxicology Screening Panel does not screen for Propoxyphene, Meprobamate, Carisoprodol, Trazodone, nylw-wbp-qcupqef medications and/or volatiles (Acetone, Isopropanol, Methanol or Ethylene Glycol). Ethanol, Salicylate, Acetaminophen, Tricyclic Antidepressants and several therapeutic drugs may be individually assayed in serum or plasma specimen. Toxicology testing by the [facility] is an aid to medical diagnosis and treatment of patients. No documented chain of custody was maintained. Results are intended to be used for clinical purposes only. Reina Ma MD LAB - URINE CHEMISTR Y ORDERABLES [facility] [address] [place] [address], [facility] [phone] * EKG 12-LEAD (08/31/2024 11:06 AM OFFLINE EDITOR) Ventricular Rate 76 BPM [facility] Atrial Rate 76 BPM [facility] P-R Interval 384 ms [facility] QRS Duration ms 160 ms [facility] Q-T Interval ms 432 ms [facility] QTC Calculation (Bezet) 486 ms [facility] Calculated R [place] -92 degrees [facility] Calculated T [place] 43 degrees [facility] Interpretation EKG SINUS RHYTHM WITH 1ST DEGREE A-V BLOCK RIGHT BUNDLE BRANCH BLOCK ABNORMAL ECG NO PREVIOUS ECGS AVAILABLE Confirmed by KOLE GOODEN MD ([id number]) on 08/31/2024 5:06:06 PM [facility] 08/31/2024 11:0 6 AM OFFLINE EDITOR 08/31/2024 5:06 PM OFFLINE EDITOR Ayan Livingston MD ECG ORDERABLES Performing Organization Address [facility] Co de Phone Number [facility] * (ABNORMAL) PTT [facility] (08/31/2024 11:02 AM OFFLINE EDITOR) APTT 40.4(H) 23.0 - 38.4 Seconds 08/31/2024 11:30 AM [facility] Comment:Suggested therapeuti c range for full dose I.V. unfractionated heparin therapy for venous thromboembolism is 71 to 109 seconds. Blood BLOOD SPECIMEN / Unknown Venipuncture / Unknown 08/31/2024 11:02 AM OFFLINE EDITOR 08/31/2024 11:10 AM OFFLINE EDITOR Reina Ma MD LAB - COAGULATION OR DERABLES Performing Organization Address [facility] Co de Phone Number [address] [address], [facility] [phone] * (ABNORMAL) PT-INR [facility] (08/31/2024 11:02 AM OFFLINE EDITOR) PT 18.3(H) 12.1 - 14.8 Seconds 08/31/2024 11:30 AM [facility] INR 1.6 See Comment 08/31/2024 11:30 AM [facility] Comment:The suggested therap eutic range for standard coumadin (warfarin) therapy is an INR of 2.0-3.0. For high-risk patients (Mechanical Mitral Valve Prosthesis, etc.), the suggested prophylactic therapeutic range is an INR of 2.5-3.5. Blood BLOOD SPECIMEN / Unknown Venipuncture / Unknown 08/31/2024 11:02 AM OFFLINE EDITOR 08/31/2024 11:10 AM OFFLINE EDITOR Ayan Livingston MD LAB - COAGULATION OR DERABLES Performing Organization Address [facility] Co de Phone Number [address] [address], [place] [phone] * TYPE + SCREEN PANEL (08/31/2024 11:02 AM OFFLINE EDITOR) [facility] Antibody Screen NEG 11:44 AM [facility] BLOOD BANK LAB ABO Rh A POS 08/31/2024 11:44 AM [facility] B[facility]OD [facility] LAB Blood Bank BLOOD SPECIMEN / Unknown Venipuncture / Unknown 08/31/2024 11:02 AM OFFLINE EDITOR 08/31/2024 11:08 AM [facility] Ayan Livingston MD LAB - BLOOD BANK ORD ERABLES [facility] [address] [place] [address], [facility] [phone] * (ABNORMAL) COMPREHENSIVE METABOLIC PANEL (08/31/2024 11:02 AM [facility]) [facility] BUN 28(H) 7 - 26 mg/dL 08/31/2024 11:36 AM [facility] Creatinine 0.79 0.56 - 0.96 mg/dL 08/31/2024 11:36 AM [facility] Sodium 140 136 - 145 mmol/L 08/31/2024 11:36 AM [facility] Potassium 4.2 3.5 - 4.5 mmol/L 08/31/2024 11:36 AM [facility] Chloride 113(H) 98 - 107 mmol/L 08/31/2024 11:36 AM [facility] CO2 25 22 - 29 mmol/L 08/31/2024 11:36 AM [facility] Glucose 87 70 - 99 mg/dL 08/31/2024 11:36 AM [facility] Calcium 9.5 8.4 - 10.2 mg/dL 08/31/2024 11:36 AM [facility] Protein Total 6.4 6.0 - 8.3 g/dL 08/31/2024 11:36 AM [facility] Albumin 3.4 3.4 - 5.0 g/dL 08/31/2024 11:36 AM [facility] Bilirubin Total 0.2 0.2 - 1.2 mg/dL 08/31/2024 11:36 AM [facility] Alkaline Phosphatase 103 40 - 150 U/L 08/31/2024 11:36 AM [facility] ALT 23 5 - 55 U/L 08/31/2024 11:36 AM [facility] AST 22 5 - 34 U/L 08/31/2024 11:36 AM [facility] Anion Gap 2(L) 6 - 16 08/31/2024 11:36 AM [facility] BUN/Creatinine Ratio 35(H) 7 - 23 08/31/2024 11:36 AM [facility] Osmolality Calculated 295 275 - 295 mOsm/kg 08/31/2024 11:36 AM [facility] Albumin/Globulin Ratio 1.1 1.1 - 2.3 08/31/2024 11:36 AM [facility] eGFR by CKD-EPI 77(L) >=90 mL/min/1.7 3 m2 08/31/2024 11:36 AM [facility] Blood BLOOD SPECIMEN / Unknown Venipuncture / Unknown 08/31/2024 11:02 AM OFFLINE EDITOR 08/31/2024 11:10 AM OFFLINE EDITOR Ayan Livingston MD LAB - CHEMISTRY [facility] Organization Address City/State/ZIP Co de Phone Number [facility] [address] [place] [address], [facility] [phone] * CT ANGIO BRAIN NECK STROKE (08/31/2024 11:00 AM OFFLINE EDITOR) Anatomical Region Laterality Modality Head Computed Tomogra phy 08/31/2024 11:2 3 AM OFFLINE EDITOR Impressions 08/31/2024 12:09 PM OFFLINE EDITOR IMPRESSION: 1. No large arterial occlusions or significant stenoses identified in the head or neck. 2. Multiple bilateral inferior lobar thyroid nodules measuring up to 1 cm. This preliminary report was dictated by Demar Elkins MD (DR/IR Resident). I, Loren Marin MD have personally reviewed and interpreted this examination/study. > Interpreting Provider: Loren Marin MD on 08/31/2024 12:09 PM Narrative 08/31/2024 12:09 PM OFFLINE EDITOR PROCEDURE: CT ANGIO BRAIN NECK STROKE, DATE/TIME OF EXAM: 08/31/2024 11:00 AM, LOCATION [facility] INDICATION: Code Stroke ADDITIONAL CLINICAL INFORMATION: Ordering [...] DATE/TIME OF EXAM: 08/31/2024 11:00 AM, LOCATION [facility] INDICATION: Code Stroke ADDITIONAL CLINICAL INFORMATION: Ordering [...] OF CARE (IP) STROKE (08/31/2024 10:53 AM OFFLINE EDITOR) INR 1.2 0.9 - 1.2 08/31/2024 10:54 AM [facility] Device [id number] 08/31/2024 10:54 AM [facility] Air Table Operator ID [id number] 08/31/2024 10:54 AM [facility] Blood BLOOD SPECIMEN / Unknown 08/31/2024 10:53 AM OFFLINE EDITOR 08/31/2024 10:54 AM OFFLINE EDITOR Provider Unknown LAB - POINT OF CARE ORDERABLES [facility] [address] [place] [address], [facility] [phone] * CREATININE - POCT INTERFACED (08/31/2024 10:53 AM OFFLINE EDITOR) Creatinine POCT 0.56 0.30 - 1.30 mg/dL 08/31/2024 11:00 AM [facility] eGFR >90 >=90 mL/min/1.7 3 m2 08/31/2024 11:00 AM [facility] Blood BLOOD SPECIMEN / Unknown 08/31/2024 10:53 AM OFFLINE EDITOR 08/31/2024 11:00 AM OFFLINE EDITOR Provider Unknown LAB - POINT OF CARE ORDERABLES [facility] [address] [place] [address], [place] [phone] * CT BRAIN - Stroke (08/31/2024 10:50 AM OFFLINE EDITOR) Anatomical Region Laterality Modality Head Computed Tomogra phy 08/31/2024 11:0 4 AM OFFLINE EDITOR Impressions 08/31/2024 11:09 AM OFFLINE EDITOR IMPRESSION: 1. A small amount of hyperattenuation [...] 08/31/2024 11:09 AM Narrative 08/31/2024 11:09 AM OFFLINE EDITOR PROCEDURE: CT BRAIN STROKE, DATE/TIME OF EXAM: 08/31/2024 10:50 AM, LOCATION [facility] INDICATION: Code Stroke ADDITIONAL CLINICAL INFORMATION: Ordering [...] DATE/TIME OF EXAM: 08/31/2024 10:50 AM, LOCATION [facility] INDICATION: Code Stroke ADDITIONAL CLINICAL INFORMATION: Ordering [...] Ayan Livingston MD CT ORDERABLES Care Teams Front End Drupal Developer Relationship Specialty Start Date End Date Provider, No Pcp PCP - General 08/30/24
--- OUTSIDE RECORDS SUMMARY | 2024-11-28 11:19 | XMS_ITS | Referral Summary ---
Author Organization [facility] [place] [address] [facility] [address] Address [address] [place] [address] Care Team Providers Care [employer] Name Role Phone Angélica Horton NP Primary Care Provider [phone] Allergies Active Allergy Reactions Criticality Noted Date [...] 3 Active vitamins A,C,E-zinc-mayela er (ICAPS) 14,320-226-200 ukmz-ih-bzyx capsule Take by mouth Active cholecalciferol (VITAMIN D-3) 07901 unit tablet Take 2,000 Units by mouth [...] on file Legal Sex Female 3:59 PM [employer] Gender Identity Not on file Sexual Orientation [...] of Treatment Not on file Insurance MEDICARE [facility] Address: [address] [address] [place] [address] [employer] MED[employer]ARE [employer] Care Teams [employer] Relationship Specialty Start Date End Date Angélica Horton NP [address] [place] [address] PCP - General Nurse Practitioner 10/07/22
--- OUTSIDE RECORDS SUMMARY | 2024-11-28 11:19 | XMS_ITS | Clinical Summary ---
Author Organization [facility] [employer] Address [address] [place] [address] Care Team Providers Care News Director Name Role Phone Provider, No Pcp Primary Care Provider Unavailab le Source Comments [facility] [employer],non-owned Affiliates and Associated Physician Practices is amultiple site organization consisting of ambulatory clinics and hospital sitesin [place], [place], [place] and [place]. This disclosure is being madepursuant to the Care Everywhere program and may not contain all information available regarding this patient. 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) ; Primary hypertension; Longstanding persistent atrial fibrillation (HCC); Type 2 diabetes mellitus without complication, without long-term current use of insulin (HCC) 08/31/2024 10:40 AM DERRICK BOAT LEVER OPERATOR - 09/03/2024 2:12 PM DERRICK BOAT LEVER OPERATOR Hospital Encounter [facility] ACUTE [address] [place] [id number] Austin Stapleton MD Esechie, Aimalohi, MD Linares, [...] Recorded Patient Health Questionnaire-2 Score 0 09/03/2024 [facility] - Occupational [...] Comments Blood Pressure 141/70 09/03/2024 8:04 AM DERRICK BOAT LEVER OPERATOR Pulse 105 09/03/2024 8:04 AM DERRICK BOAT LEVER OPERATOR Temperature 36.6 C (97.9 F) 09/03/2024 8:04 AM DERRICK BOAT LEVER OPERATOR Respiratory Rate 18 09/03/2024 8:04 AM DERRICK BOAT LEVER OPERATOR Oxygen Saturation 100% 09/03/2024 8:04 AM DERRICK BOAT LEVER OPERATOR Inhaled Oxygen Concentration - - Weight 56.7 kg (125 lb) 09/01/2024 8:07 PM DERRICK BOAT LEVER OPERATOR Height 162.6 cm (5' 4 ) 09/01/2024 8:07 PM DERRICK BOAT LEVER OPERATOR Body Mass Index 21.46 09/01/2024 8:07 PM DERRICK BOAT LEVER OPERATOR Plan of Treatment Health Maintenance Due Date [...] POINT OF CARE Routine 09/03/2024 12:25 PM DERRICK BOAT LEVER OPERATOR PHOSPHORUS BLOOD Routine 09/03/2024 2:10 AM DERRICK BOAT LEVER OPERATOR 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) MAGNESIUM BLOOD Routine 09/03/2024 2:10 AM DERRICK BOAT LEVER OPERATOR 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) CBC W AUTO DIFFERENTIAL Routine 09/03/2024 2:10 AM DERRICK BOAT LEVER OPERATOR 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) BASIC METABOLIC PANEL (CALCIUM TOTAL) Routine 09/03/2024 2:10 AM DERRICK BOAT LEVER OPERATOR 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) GLUCOSE - POINT OF CARE Routine 09/02/2024 11:25 PM DERRICK BOAT LEVER OPERATOR GLUCOSE - POINT OF CARE Routine 09/02/2024 9:19 PM DERRICK BOAT LEVER OPERATOR MRI BRAIN WO CONTRAST Routine 09/02/2024 4:44 PM DERRICK BOAT LEVER OPERATOR 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) GLUCOSE - POINT OF CARE Routine 09/02/2024 11:58 AM DERRICK BOAT LEVER OPERATOR VAS BILATERAL VENOUS DUPLEX LE Routine 09/02/2024 11:36 AM DERRICK BOAT LEVER OPERATOR Acute deep vein thrombosis (DVT) of distal vein of left lower extremity (HCC) GLUCOSE - POINT OF CARE Routine 09/02/2024 3:55 AM DERRICK BOAT LEVER OPERATOR CBC W AUTO DIFFERENTIAL Routine 09/02/2024 1:56 AM DERRICK BOAT LEVER OPERATOR 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) PHOSPHORUS BLOOD Routine 09/02/2024 1:55 AM DERRICK BOAT LEVER OPERATOR 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) MAGNESIUM BLOOD Routine 09/02/2024 1:55 AM DERRICK BOAT LEVER OPERATOR 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) BASIC METABOLIC PANEL (CALCIUM TOTAL) Routine 09/02/2024 1:55 AM DERRICK BOAT LEVER OPERATOR 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) GLUCOSE - POINT OF CARE Routine 09/01/2024 11:57 PM DERRICK BOAT LEVER OPERATOR GLUCOSE - POINT OF CARE Routine 09/01/2024 8:07 PM DERRICK BOAT LEVER OPERATOR GLUCOSE - POINT OF CARE Routine 09/01/2024 4:05 PM DERRICK BOAT LEVER OPERATOR GLUCOSE - POINT OF CARE Routine 09/01/2024 11:21 AM DERRICK BOAT LEVER OPERATOR GLUCOSE - POINT OF CARE Routine 09/01/2024 7:57 AM DERRICK BOAT LEVER OPERATOR GLUCOSE - POINT OF CARE Routine 09/01/2024 3:52 AM DERRICK BOAT LEVER OPERATOR PHOSPHORUS BLOOD Routine 09/01/2024 1:42 AM DERRICK BOAT LEVER OPERATOR 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) MAGNESIUM BLOOD Routine 09/01/2024 1:42 AM DERRICK BOAT LEVER OPERATOR 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) CBC W AUTO DIFFERENTIAL Routine 09/01/2024 1:42 AM DERRICK BOAT LEVER OPERATOR 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) BASIC METABOLIC PANEL (CALCIUM TOTAL) Routine 09/01/2024 1:42 AM DERRICK BOAT LEVER OPERATOR 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) GLUCOSE - POINT OF CARE Routine 09/01/2024 12:18 AM DERRICK BOAT LEVER OPERATOR GLUCOSE - POINT OF CARE Routine 08/31/2024 9:27 PM DERRICK BOAT LEVER OPERATOR GLUCOSE - POINT OF CARE Routine 08/31/2024 6:32 PM DERRICK BOAT LEVER OPERATOR GLUCOSE - POINT OF CARE Routine 08/31/2024 5:44 PM DERRICK BOAT LEVER OPERATOR BLOOD TYPE VERIFICATION STAT 08/31/2024 4:12 PM DERRICK BOAT LEVER OPERATOR HEMOGLOBIN A1C Add on 08/31/2024 4:12 PM DERRICK BOAT LEVER OPERATOR 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) TROPONIN-I HIGH SENSITIVE BASELINE + 1HR Add on 08/31/2024 4:12 PM DERRICK BOAT LEVER OPERATOR 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) GLUCOSE - POINT OF CARE Routine 08/31/2024 3:01 PM DERRICK BOAT LEVER OPERATOR URINALYSIS REFLEX TO MICROSCOPIC NO CULTURE STAT 08/31/2024 2:54 PM DERRICK BOAT LEVER OPERATOR URINE DRUG SCREEN IMMUNOASSAY STAT 08/31/2024 2:54 PM DERRICK BOAT LEVER OPERATOR 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) CULTURE URINE STAT 08/31/2024 2:54 PM DERRICK BOAT LEVER OPERATOR EKG 12-LEAD STAT 08/31/2024 11:06 AM DERRICK BOAT LEVER OPERATOR Generalized weakness TYPE + SCREEN PANEL STAT 08/31/2024 1 1:02 AM DERRICK BOAT LEVER OPERATOR PTT [facility] Routine 08/31/2024 11:02 AM DERRICK BOAT LEVER OPERATOR 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) PT-INR [facility] STAT 08/31/2024 11:02 AM DERRICK BOAT LEVER OPERATOR COMPREHENSIVE METABOLIC PANEL STAT 08/31/2024 11:02 AM DERRICK BOAT LEVER OPERATOR CBC W AUTO DIFFERENTIAL STAT 08/31/2024 11:02 AM DERRICK BOAT LEVER OPERATOR CT ANGIO BRAIN NECK STROKE STAT 08/31/2024 11:00 AM DERRICK BOAT LEVER OPERATOR Generalized weakness CREATININE - POCT INTERFACED Routine 08/31/2024 10:53 AM DERRICK BOAT LEVER OPERATOR INR WHOLE BLOOD - POINT OF CARE (IP) STROKE Routine 08/31/2024 10:53 AM DERRICK BOAT LEVER OPERATOR CT BRAIN STROKE STAT 08/31/2024 10:50 AM DERRICK BOAT LEVER OPERATOR Generalized weakness GLUCOSE - POINT OF CARE Routine 08/31/2024 10:45 AM DERRICK BOAT LEVER OPERATOR from Last 3 Months Results * (ABNORMAL) GLUCOSE - POINT OF CARE (09/03/2024 12:25 PM DERRICK BOAT LEVER OPERATOR) Only the most recent of17 resultswithin the time period is included. [facility] Glucose WB/POC 168(H) 70 - 99 mg/dL 09/03/2024 2:56 PM DERRICK BOAT LEVER OPERATOR [facility] Specimen Type Arterial 09/03/2024 2:56 PM DERRICK BOAT LEVER OPERATOR [facility] Blood BLOOD SPECIMEN / Unknown 09/03/2024 12:25 PM DERRICK BOAT LEVER OPERATOR 09/03/2024 2:56 PM DERRICK BOAT LEVER OPERATOR Reina Ma MD LAB - POINT OF CARE ORDERABLES [address] [address], [facility] [phone] * (ABNORMAL) CBC W AUTO DIFFERENTIAL (09/03/2024 2:10 AM DERRICK BOAT LEVER OPERATOR) Only the most recent of4 resultswithin the time period is included. [facility] WBC 9.3 4.0 - 10.7 x10E9/L 09/03/2024 3:[address] [facility] RBC Count 3.38(L) 3.90 - 5.20 x10E12/L 09/03/2024 3:08 AM [facility] Hemoglobin 9.0(L) 11.9 - 15.8 g/dL 09/03/2024 3:08 AM [facility] Hematocrit 28.4(L) 34.8 - 46.1 % 09/03/2024 3:08 AM [facility] MCV 84.0 80.0 - 98.0 fL 09/03/2024 3:08 AM [facility] MCH 26.6(L) 26.7 - 33.6 pg 09/03/2024 3:08 AM [facility] MCHC 31.7 31.7 - 36.3 g/dL 09/03/2024 3:08 AM [facility] RDW-CV 15.0(H) 11.3 - 14.8 % 09/03/2024 3:08 AM [facility] Platelet Count 356 150 - 420 x10E9/L 09/03/2024 3:08 AM [facility] MPV 9.6 7.8 - 11.4 fL 09/03/2024 3:08 AM [facility] Neutrophil % 56.8 41.0 - 74.0 % 09/03/2024 3:08 AM [facility] Lymphocyte % 28.1 17.0 - 47.0 % 09/03/2024 3:08 AM [facility] Monocyte % 11.5(H) 3.0 - 11.0 % 09/03/2024 3:08 AM [facility] Eosinophil % 2.8 0.0 - 7.0 % 09/03/2024 3:08 AM [facility] Basophil % 0.4 0.0 - 1.6 % 09/03/2024 3:08 AM [facility] Immature Granulocytes % 0.4 0.0 - 1.0 % 09/03/2024 3:08 AM [facility] Neutrophil Absolute 5.27 1.60 - 7.50 x10E9/L 09/03/2024 3:08 AM [facility] Lymphocyte Absolute 2.61 1.00 - 4.40 x10E9/L 09/03/2024 3:08 AM [facility] Monocyte Absolute 1.07(H) 0.15 - 1.00 x10E9/L 09/03/2024 3:08 AM [facility] Eosinophil Absolute 0.26 0.00 - 0.60 x10E9/L 09/03/2024 3:08 AM [facility] Basophil Absolute 0.04 0.00 - 0.13 x10E9/L 09/03/2024 3:08 AM [facility] Blood BLOOD SPECIMEN / Unknown Lab Venipuncture / Unknown 09/03/2024 2:10 AM DERRICK BOAT LEVER OPERATOR 09/03/2024 3:02 AM DERRICK BOAT LEVER OPERATOR Reina Ma MD LAB - HEMATOLOGY ORD ERABLES [facility] [address] [place] [address], [facility] [phone] * (ABNORMAL) BASIC METABOLIC PANEL (CALCIUM TOTAL) (09/03/2024 2:10 AM DERRICK BOAT LEVER OPERATOR) Only the most recent of3 resultswithin the time period is included. BUN 26 7 - 26 mg/dL 09/03/2024 3:29 AM [facility] Creatinine 0.87 0.56 - 0.96 mg/dL 09/03/2024 3:29 AM [facility] Sodium 139 136 - 145 mmol/L 09/03/2024 3:29 AM [facility] Potassium 4.6(H) 3.5 - 4.5 mmol/L 09/03/2024 3:29 AM [facility] Chloride 109(H) 98 - 107 mmol/L 09/03/2024 3:29 AM [facility] CO2 22 22 - 29 mmol/L 09/03/2024 3:29 AM [facility] Glucose 125(H) 70 - 99 mg/dL 09/03/2024 3:29 AM [facility] Calcium 8.9 8.4 - 10.2 mg/dL 09/03/2024 3:29 AM [facility] Anion Gap 8 6 - 16 09/03/2024 3:29 AM [facility] BUN/Creatinine Ratio 30(H) 7 - 23 09/03/2024 3:29 AM [facility] Osmolality Calculated 294 275 - 295 mOsm/kg 09/03/2024 3:29 AM [facility] eGFR by CKD-EPI 69(L) >=90 mL/min/1.7 3 m2 09/03/2024 3:29 AM [facility] Blood BLOOD SPECIMEN / Unknown Lab Venipuncture / Unknown 09/03/2024 2:10 AM DERRICK BOAT LEVER OPERATOR 09/03/2024 3:02 AM DERRICK BOAT LEVER OPERATOR Reina Ma MD LAB - CHEMISTRY JONG DUNHAM Performing Organization Address City/[facility]/ZIP Co de Phone Number [address] [address], [facility] [phone] * PHOSPHORUS BLOOD (09/03/2024 2:10 AM DERRICK BOAT LEVER OPERATOR) Only the most recent of3 resultswithin the time period is included. Phosphorus 3.1 2.9 - 5.1 mg/dL 09/03/2024 3:29 AM DERRICK BOAT LEVER OPERATOR [facility] Blood BLOOD SPECIMEN / Unknown Lab Venipuncture / Unknown 09/03/2024 2:10 AM DERRICK BOAT LEVER OPERATOR 09/03/2024 3:02 AM DERRICK BOAT LEVER OPERATOR Reina Ma MD LAB - CHEMISTRY JONG DUNHAM Performing Organization Address [facility]/ZIP Co de Phone Number [address] [address], [facility] [phone] * MAGNESIUM BLOOD (09/03/2024 2:10 AM DERRICK BOAT LEVER OPERATOR) Only the most recent of3 resultswithin the time period is included. Magnesium 2.2 1.6 - 2.6 mg/dL 09/03/2024 3:29 AM DERRICK BOAT LEVER OPERATOR [facility] Blood BLOOD SPECIMEN / Unknown Lab Venipuncture / Unknown 09/03/2024 2:10 AM DERRICK BOAT LEVER OPERATOR 09/03/2024 3:02 AM DERRICK BOAT LEVER OPERATOR Reina Ma MD LAB - CHEMISTRY JONG DUNHAM Performing Organization Address City/[facility]/ZIP Co de Phone Number [address] [address], [facility] [phone] * MRI Brain Wo Contrast (09/02/2024 4:44 PM DERRICK BOAT LEVER OPERATOR) Anatomical Region Laterality Modality Head Magnetic Resonan ce 09/02/2024 4:25 PM DERRICK BOAT LEVER OPERATOR Impressions 09/04/2024 12:47 PM DERRICK BOAT LEVER OPERATOR IMPRESSION: 1. No evidence of acute infarct. [...] Report dictated by Roberto Eden MD, PhD (vice president of recruiting). I, Loren Marin MD have personally reviewed and interpreted this examination/study. > Interpreting Provider: Loren Marin MD on 09/04/2024 12:47 PM Narrative 09/04/2024 12:47 PM DERRICK BOAT LEVER OPERATOR PROCEDURE: MRI BRAIN WO CONTRAST, DATE/TIME OF EXAM: 09/02/2024 4:44 PM, LOCATION [facility] INDICATION: I61.2: Nontraumatic hemorrhage of right cerebral [...] CONTRAST, DATE/TIME OF EXAM: 09/02/2024 4:44PM, LOCATION [facility] INDICATION: I61.2: Nontraumatic hemorrhage of right cerebral [...] care provider, Dr. Brian Randall by Dr. Robreto Eden via telephone at 09/02/2024 5:13 PM with readback comprehension and verification. Report dictated by Roberto Eden MD, PhD (vice president of recruiting). I, Loren Marin MD have personally reviewed and interpreted this examination/study. > Interpreting Provider: Loren Marin MD on 09/04/2024 12:47 PM Reina Ma MD MR ORDERABLES * VAS Bilateral Venous Duplex Le (09/02/2024 11:36 AM DERRICK BOAT LEVER OPERATOR) Anatomical Region Laterality Modality Lower Extremity Ultrasound 09/02/2024 8:59 AM DERRICK BOAT LEVER OPERATOR Narrative Procedure Note Bon Garcia MD - 09/02/2024 Reina Ma MD VASCULAR LAB ORDERAB LES * TROPONIN-I HIGH SENSITIVE BASELINE + 1HR (08/31/2024 4:12 PM DERRICK BOAT LEVER OPERATOR) Troponin I High Sensitive <3 <=14 ng/L 08/31/2024 5:08 PM DERRICK BOAT LEVER OPERATOR [facility] Blood BLOOD SPECIMEN / Unknown Lab Venipuncture / Unknown 08/31/2024 4:12 PM DERRICK BOAT LEVER OPERATOR 08/31/2024 4:32 PM DERRICK BOAT LEVER OPERATOR Ayan Livingston MD LAB - CHEMISTRY ORDE ROLY [facility] [address] [place] [address], [place] [phone] * BLOOD TYPE VERIFICATION (08/31/2024 4:12 PM DERRICK BOAT LEVER OPERATOR) ABO Rh A POS 08/31/2024 5:1 3 PM DERRICK BOAT LEVER OPERATOR [facility] Blood Bank BLOOD SPECIMEN / Unknown Lab Venipuncture / Unknown 08/31/2024 4:12 PM DERRICK BOAT LEVER OPERATOR 08/31/2024 4:40 PM DERRICK BOAT LEVER OPERATOR Ayan Livingston MD LAB - BLOOD BANK ORD ERAJHOAN [facility] [address] [place] [address], [place] [phone] * (ABNORMAL) HEMOGLOBIN A1C (08/31/2024 4:12 PM DERRICK BOAT LEVER OPERATOR) Hemoglobin A1c 6.0(H) <=5.6 % 09/01/2024 8:55 AM [facility] Estimated Average Glucose 126 mg/dL 09/01/2024 8:55 AM [facility] Comment: HbA1c Interpretation: Normal : < 5.7% Pre-diabetes: 5.7-6.4% Diabetes: Equal to or greater than 6.5% Test results diagnostic of diabetes should be repeated for confirmation. Treatment target values recommended by ADA and other clinical organizations should be used to evaluate metabolic control in patients. Reference: [place] [employer], Standards of Care in Diabetes -2020 In patients 70 years and older consider HbA1c target range of 7.0-7.5% (Reference: Davon Goldstein et al. JAMDA. 2012) The Sebia assay for the measurement of HbA1c is a National Glycohemoglobin Standardization Program (NGSP) certified method. Blood BLOOD SPECIMEN / Unknown Lab Venipuncture / Unknown 08/31/2024 4:12 PM DERRICK BOAT LEVER OPERATOR 08/31/2024 4:33 PM DERRICK BOAT LEVER OPERATOR Ayan Livingston MD LAB - CHEMISTRY JONG DUNHAM [facility] Organization Address City/State/ZIP Co de Phone Number [address] [address], [facility] [phone] * (ABNORMAL) URINALYSIS REFLEX TO MICROSCOPIC NO CULTURE (08/31/2024 2:54 PM DERRICK BOAT LEVER OPERATOR) Color UA Yellow Straw, Yellow 08/31/2024 3:23 PM [facility] Clarity UA Clear Clear 08/31/2024 3:23 PM [facility] Specific [place] UA 1.029 1.005 - 1.030 08/31/2024 3:23 PM [facility] pH UA 5.0 5.0 - 8.0 pH 08/31/2024 3:23 PM [facility] Protein UA Negative Negative 08/31/2024 3:23 PM [facility] Glucose UA Negative Negative 08/31/2024 3:23 PM [facility] Ketone UA Negative Negative 08/31/2024 3:23 PM [facility] Bilirubin UA Negative Negative 08/31/2024 3:23 PM [facility] Blood UA Negative Negative 08/31/2024 3:23 PM [facility] Nitrite UA Negative Negative 08/31/2024 3:23 PM [facility] Leukocyte Esterase Negative Negative 08/31/2024 3:23 PM [facility] Urobilinogen UA Negative Negative mg/dL 08/31/2024 3:23 PM [facility] RBC UA 3-5 None Seen, 0-2, 3-5 /HPF 08/31/2024 3:23 PM [facility] WBC UA 6-10(A) None Seen, 0-5 /HPF 08/31/2024 3:23 PM [facility] Squamous Epithelial Cells UA 0-2 None Seen, 0-2, 3-5 /HPF 08/31/2024 3:23 PM [facility] Urine URINE SPECIMEN OBTAINED BY SINGLE CATHETERIZATION OF URINARY BLADDER / Unknown Collection / Unknown 08/31/2024 2:54 PM DERRICK BOAT LEVER OPERATOR 08/31/2024 3:00 PM DERRICK BOAT LEVER OPERATOR Narrative [facility] - 08/31/2024 3:23 PM DERRICK BOAT LEVER OPERATOR Reina aM MD LAB - URINALYSIS ORD ERABLES [facility] [address] [place] [address], [place] [phone] * CULTURE URINE (08/31/2024 2:54 PM DERRICK BOAT LEVER OPERATOR) Culture Urine No growth (<100 CFU/mL) KRISTIN 09/01/2024 9:37 PM DERRICK BOAT LEVER OPERATOR [facility] MICROBIOLOGY Urine URINE SPECIMEN OBTAINED BY SINGLE CATHETERIZATION OF URINARY BLADDER / Unknown Collection / Unknown 08/31/2024 2:54 PM DERRICK BOAT LEVER OPERATOR 08/31/2024 3:00 PM DERRICK BOAT LEVER OPERATOR Reina Ma MD LAB - MICROBIOLOGY O RDERABLES [facility]CRO[facility] [address] [place] [address] [phone] * URINE DRUG SCREEN IMMUNOASSAY (08/31/2024 2:54 PM DERRICK BOAT LEVER OPERATOR) Amphetamines Screen Urine Negative Negative: < 1000 ng/mL 08/31/2024 3:25 PM [facility] Barbiturates Screen Urine Negative Negative: < 200 ng/mL 08/31/2024 3:25 PM [facility] Benzodiazepine Screen Urine Negative Negative: < 200 ng/mL 08/31/2024 3:25 PM [facility] Opiates Urine Negative Negative: < 300 ng/mL 08/31/2024 3:25 PM [facility] Cocaine Metabolites Urine Negative Negative: < 300 ng/mL 08/31/2024 3:25 PM [facility] Phencyclidine Screen Urine Negative Negative: < 25 ng/ml 08/31/2024 3:25 PM [facility] Cannabinoids Screen Urine Negative Negative: <50 ng/mL 08/31/2024 3:25 PM [facility] Methadone Screen Urine Negative Negative: < 300 ng/mL 08/31/2024 3:25 PM [facility] Fentanyl Screen Urine Negative Negative: <1.5 ng/mL 08/31/2024 3:25 PM [facility] Urine URINE / Unknown Collection / Unknown 08/31/2024 2:54 PM DERRICK BOAT LEVER OPERATOR 08/31/2024 3:00 PM [facility] - 08/31/2024 3:25 PM DERRICK BOAT LEVER OPERATOR The Urine Toxicology Screening Panel does not screen for Propoxyphene, Meprobamate, Carisoprodol, Trazodone, dloz-gid-bvapzqi medications and/or volatiles (Acetone, Isopropanol, Methanol or Ethylene Glycol). Ethanol, Salicylate, Acetaminophen, Tricyclic Antidepressants and several therapeutic drugs may be individually assayed in serum or plasma specimen. Toxicology testing by the [facility] is an aid to medical diagnosis and treatment of patients. No documented chain of custody was maintained. Results are intended to be used for clinical purposes only. Reina Ma MD LAB - URINE CHEMISTR Y ORDERABLES [facility] [address] [place] [address], [facility] [phone] * EKG 12-LEAD (08/31/2024 11:06 AM DERRICK BOAT LEVER OPERATOR) Pathologist [facility] Ventricular Rate 76 BPM [facility] Atrial Rate 76 BPM [facility] P-R Interval 384 ms [facility] QRS Duration ms 160 ms [facility] Q-T Interval ms 432 ms [facility] QTC Calculation (Bezet) 486 ms [facility] Calculated R [place] -92 degrees [facility] Calculated T [place] 43 degrees [facility] Interpretation EKG SINUS RHYTHM WITH 1ST DEGREE A-V BLOCK RIGHT BUNDLE BRANCH BLOCK ABNORMAL ECG NO PREVIOUS ECGS AVAILABLE Confirmed by KOLE GOODEN MD ([id number]) on 08/31/2024 5:06:06 PM [facility] 08/31/2024 11:0 6 AM DERRICK BOAT LEVER OPERATOR 08/31/2024 5:06 PM DERRICK BOAT LEVER OPERATOR Ayan Livingston MD ECG ORDERABLES Performing Organization Address City/[facility]/ZIP Co de Phone Number [facility] * (ABNORMAL) PTT [facility] (08/31/2024 11:02 AM DERRICK BOAT LEVER OPERATOR) [facility] APTT 40.4(H) 23.0 - 38.4 Seconds 08/31/2024 11:30 AM DERRICK BOAT LEVER OPERATOR [facility] Comment:Suggested therapeuti c range for full dose I.V. unfractionated heparin therapy for venous thromboembolism is 71 to 109 seconds. Blood BLOOD SPECIMEN / Unknown Venipuncture / Unknown 08/31/2024 11:02 AM DERRICK BOAT LEVER OPERATOR 08/31/2024 11:10 AM DERRICK BOAT LEVER OPERATOR Reina Ma MD LAB - COAGULATION OR DERABLES [facility] [address] [place] [address], [facility] [phone] * (ABNORMAL) PT-INR [facility] (08/31/2024 11:02 AM DERRICK BOAT LEVER OPERATOR) [facility] PT 18.3(H) 12.1 - 14.8 Seconds 08/31/2024 11:30 AM [facility] INR 1.6 See Comment 08/31/2024 11:30 AM [facility] Comment:The suggested therap eutic range for standard coumadin (warfarin) therapy is an INR of 2.0-3.0. For high-risk patients (Mechanical Mitral Valve Prosthesis, etc.), the suggested prophylactic therapeutic range is an INR of 2.5-3.5. Blood BLOOD SPECIMEN / Unknown Venipuncture / Unknown 08/31/2024 11:02 AM DERRICK BOAT LEVER OPERATOR 08/31/2024 11:10 AM DERRICK BOAT LEVER OPERATOR Ayan Livingston MD LAB - COAGULATION OR DERABLES Performing Organization Address City/[facility]/ZIP Co de Phone Number [address] [address], [facility] [phone] * TYPE + SCREEN PANEL (08/31/2024 11:02 AM DERRICK BOAT LEVER OPERATOR) Antibody Screen NEG 11:44 AM [facility] ABO Rh A POS 08/31/2024 11:44 AM [facility] Blood Bank BLOOD SPECIMEN / Unknown Venipuncture / Unknown 08/31/2024 11:02 AM [employer] OPERATOR 08/31/2024 11:08 AM [employer] OPERATOR Ayan Livingston MD LAB - BLOOD BANK ORD ERABLES Performing Organization Address [facility]/ZIP Co de Phone Number [facility] [address] [place] [phone], [facility] [phone] * (ABNORMAL) COMPREHENSIVE METABOLIC PANEL (08/31/2024 11:02 AM [employer] OPERATOR) BUN 28(H) 7 - 26 mg/dL 08/31/2024 11:36 AM [facility] Creatinine 0.79 0.56 - 0.96 mg/dL 08/31/2024 11:36 AM [facility] Sodium 140 136 - 145 mmol/L 08/31/2024 11:36 AM [facility] Potassium 4.2 3.5 - 4.5 mmol/L 08/31/2024 11:36 AM [facility] Chloride 113(H) 98 - 107 mmol/L 08/31/2024 11:36 AM [facility] CO2 25 22 - 29 mmol/L 08/31/2024 11:36 AM [facility] Glucose 87 70 - 99 mg/dL 08/31/2024 11:36 AM [facility] Calcium 9.5 8.4 - 10.2 mg/dL 08/31/2024 11:36 AM [facility] [facility] Protein Total 6.4 6.0 - 8.3 g/dL 08/31/2024 11:36 AM [facility] Albumin 3.4 3.4 - 5.0 g/dL 08/31/2024 11:36 AM [facility] Bilirubin Total 0.2 0.2 - 1.2 mg/dL 08/31/2024 11:36 AM [facility] Alkaline Phosphatase 103 40 - 150 U/L 08/31/2024 11:36 AM [facility] ALT 23 5 - 55 U/L 08/31/2024 11:36 AM [facility] AST 22 5 - 34 U/L 08/31/2024 11:36 AM [facility] Anion Gap 2(L) 6 - 16 08/31/2024 11:36 AM [facility] BUN/Creatinine Ratio 35(H) 7 - 23 08/31/2024 11:36 AM [facility] Osmolality Calculated 295 275 - 295 mOsm/kg 08/31/2024 11:36 AM [facility] Albumin/Globulin Ratio 1.1 1.1 - 2.3 08/31/2024 11:36 AM [facility] eGFR by CKD-EPI 77(L) >=90 mL/min/1.7 3 m2 08/31/2024 11:36 AM [facility] Blood BLOOD SPECIMEN / Unknown Venipuncture / Unknown 08/31/2024 11:02 AM [facility] 08/31/2024 11:10 AM [facility] Ayan Livingston MD LAB - CHEMISTRY JONG DUNH[facility] Organization Address City/State/ZIP Co de Phone Number [facility] [address] [place] [address] [phone] * CT ANGIO BRAIN NECK STROKE (08/31/2024 11:00 AM DERRICK BOAT LEVER OPERATOR) Anatomical Region Laterality Modality Head Computed Tomogra phy 08/31/2024 11:2 3 AM DERRICK BOAT LEVER OPERATOR Impressions 08/31/2024 12:09 PM DERRICK BOAT LEVER OPERATOR IMPRESSION: 1. No large arterial occlusions or significant stenoses identified in the head or neck. 2. Multiple bilateral inferior lobar thyroid nodules measuring up to 1 cm. This preliminary report was dictated by Demar Elkins MD (DR/IR Resident). I, Loren Marin MD have personally reviewed and interpreted this examination/study. > Interpreting Provider: Loren Marin MD on 08/31/2024 12:09 PM Narrative 08/31/2024 12:09 PM DERRICK BOAT LEVER OPERATOR PROCEDURE: CT ANGIO BRAIN NECK STROKE, DATE/TIME OF EXAM: 08/31/2024 11:00 AM, LOCATION [facility] INDICATION: Code Stroke ADDITIONAL CLINICAL INFORMATION: Ordering [...] DATE/TIME OF EXAM: 08/31/2024 11:00 AM, LOCATION [facility] INDICATION: Code Stroke ADDITIONAL CLINICAL INFORMATION: Ordering [...] OF CARE (IP) STROKE (08/31/2024 10:53 AM [facility]) INR 1.2 0.9 - 1.2 08/31/2024 10:54 AM [facility] Device [id number] 08/31/2024 10:54 AM [facility] Photographic Supervisor ID [id number] 08/31/2024 10:54 AM [facility] Blood BLOOD SPECIMEN / Unknown 08/31/2024 10:53 AM DERRICK BOAT LEVER OPERATOR 08/31/2024 10:54 AM [facility] Provider Unknown LAB - POINT OF CARE ORDERABLES [facility] [address] [place] [address], [facility] [phone] * CREATININE - POCT INTERFACED (08/31/2024 10:53 AM DERRICK BOAT LEVER OPERATOR) Creatinine POCT 0.56 0.30 - 1.30 mg/dL 08/31/2024 11:00 AM [facility] eGFR >90 >=90 mL/min/1.7 3 m2 08/31/2024 11:00 AM [facility] Blood BLOOD SPECIMEN / Unknown 08/31/2024 10:53 AM DERRICK BOAT LEVER OPERATOR 08/31/2024 11:00 AM DERRICK BOAT LEVER OPERATOR Provider Unknown LAB - POINT OF CARE ORDERABLES [facility] [address] [place] [address], [facility] [phone] * CT BRAIN - Stroke (08/31/2024 10:50 AM DERRICK BOAT LEVER OPERATOR) Anatomical Region Laterality Modality Head Computed Tomogra phy 08/31/2024 11:0 4 AM DERRICK BOAT LEVER OPERATOR Impressions 08/31/2024 11:09 AM DERRICK BOAT LEVER OPERATOR IMPRESSION: 1. A small amount of hyperattenuation [...] 08/31/2024 11:09 AM Narrative 08/31/2024 11:09 AM DERRICK BOAT LEVER OPERATOR PROCEDURE: CT BRAIN STROKE, DATE/TIME OF EXAM: 08/31/2024 10:50 AM, LOCATION [facility] INDICATION: Code Stroke ADDITIONAL CLINICAL INFORMATION: Ordering [...] DATE/TIME OF EXAM: 08/31/2024 10:50 AM, LOCATION [facility] INDICATION: Code Stroke ADDITIONAL CLINICAL INFORMATION: Ordering [...] 11:06 AM 09/03/2024 3:17 PM Care Teams News Director Relationship Specialty Start Date End Date Provider, No Pcp PCP - General 08/30/24
[2024-11-30 01:38] LABS: Hepatitis B Surface Antigen NON-REACTIVE (NON-REACTIVE)
[2024-11-30 01:58] LABS: Hepatitis A Antibody IgM NON-REACTIVE (NON-REACTIVE); Hepatitis B Core Antibody NON-REACTIVE (NON-REACTIVE)
[2024-11-30 02:23] LABS: Hepatitis C Virus Antibody NON-REACTIVE (NON-REACTIVE)
== END 2024-11-28 09:58 | disposition home or self-care (01) ==
LOC: CHSLAB 10:00
PROVIDERS: PCP Nurse Practitioner Family; Visit Provider Nurse Practitioner Family
DX: N28.9 Disorder of kidney and ureter, unspecified (principal); R74.8 Abnormal levels of other serum enzymes; Z87.898 Personal history of other specified conditions; F10.90 Alcohol use, unspecified, uncomplicated
CPT/HCPCS: 36415; 80053; 80074; 81001; 87086

== ENCOUNTER 2024-12-02 07:50 | Outpatient (CLI) | payer MEDICARE, SELFPAY ==
--- NOTE | ~2024-12-02 | CT_ITS ---
CT of the Abdomen: Indication: Abnormal serum enzyme levels Technique: 2.5 mm axial scans were obtained through the abdomen following intravenous administration of 100 cc of Omnipaque 350. Dose reduction technique was used on this scan by utilizing automated ex posure control and iterative reconstruction technique. The dose-length product (DLP) was 187.89 mGy-c m. Findings: Scans through the lung bases are unremarkable. The liver, spleen, pancreas, adrenals and kidneys are within normal limits, aside from renal cysts. C holecystectomy clips are present. There are extensive atherosclerotic calcifications of the aorta. Th ere is severe atherosclerotic calcification at the celiac and SMA origins, with probable severe steno sis, and possible conjoint trunk of the celiac and SMA. No lymphadenopathy. Visualized bowel loops are unremarkable. No ascites. Impression: Severe atherosclerotic disease of the aorta, celiac axis, SMA, as detailed above. No acute abnormality seen. Reviewed, dictated and finalized at location M. Impression: Severe atherosclerotic disease of the aorta, celiac axis, SMA, as detailed abov e. No acute abnormality seen.
--- OUTSIDE RECORDS SUMMARY | 2024-12-02 07:55 | XMS_ITS | Clinical Summary ---
Author Organization [facility] Address [address] [place] [address] Care Team Providers Care Field Contractor Name Role Phone Unavailable Primary Care Provider [...] age to complete this topic Insurance MEDICARE [facility]
--- OUTSIDE RECORDS SUMMARY | 2024-12-02 07:55 | XMS_ITS | Referral Summary ---
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
--- OUTSIDE RECORDS SUMMARY | 2024-12-02 07:55 | XMS_ITS | Clinical Summary ---
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
--- OUTSIDE RECORDS SUMMARY | 2024-12-02 07:55 | XMS_ITS | Clinical Summary ---
Author Organization [facility] Address [address] [place] [address] Care Team Providers Care Parts Sales Manager Name Role Phone Provider, No Pcp Primary Care Provider Unavailab le Source Comments [facility],non-owned Affiliates and Associated Physician Practices is amultiple site organization consisting of ambulatory clinics and hospital sitesin [place], [place], [place] and [place]. This disclosure is being madepursuant to the Care Everywhere program and may not contain all information available regarding this patient. 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 ; Primary hypertension; Longstanding persistent atrial fibrillation; Type 2 diabetes mellitus without complication, without long-term current use of insulin 08/31/2024 10:40 AM TRAFFIC SUPERINTENDENT - 09/03/2024 2:12 PM [facility] Hospital Encounter [facility] [address] [place] [address] Austin Stapleton MD Esechie, Aimalohi, MD Linares, Guillermo, MD Neurology Discharge Disposition: Home or Self Care from Last 3 Months Social History Tobacco [...] Recorded Patient Health Questionnaire-2 Score 0 09/03/2024 [facility] Occupat ional Health - Occupational Stress [...] any time in the past 12 m [facility], were you homeless or living in a usp (including now)? No 08/31/2024 Sex and Gender Information Value Date Recorded Sex Assigned at Not on file Gender Identity Not on file Sexual Orientation Not on file Last Filed Vital Signs Vital Sign Reading Time Taken Comments Blood Pressure 141/70 09/03/2024 8:04 AM TRAFFIC SUPERINTENDENT Pulse 105 09/03/2024 8:04 AM TRAFFIC SUPERINTENDENT Temperature 36.6 C (97.9 F) 09/03/2024 8:04 AM TRAFFIC SUPERINTENDENT Respiratory Rate 18 09/03/2024 8:04 AM TRAFFIC SUPERINTENDENT Oxygen Saturation 100% 09/03/2024 8:04 AM TRAFFIC SUPERINTENDENT Inhaled Oxygen Concentration - - Weight 56.7 kg (125 lb) 09/01/2024 8:07 PM TRAFFIC SUPERINTENDENT Height 162.6 cm (5' 4 ) 09/01/2024 8:07 PM TRAFFIC SUPERINTENDENT Body Mass Index 21.46 09/01/2024 8:07 PM TRAFFIC SUPERINTENDENT Plan of Treatment Health Maintenance Due Date [...] POINT OF CARE Routine 09/03/2024 12:25 PM TRAFFIC SUPERINTENDENT PHOSPHORUS BLOOD Routine 09/03/2024 2:10 AM TRAFFIC SUPERINTENDENT Nontraumatic hemorrhage of right cerebral hemisphere MAGNESIUM BLOOD Routine 09/03/2024 2:10 AM TRAFFIC SUPERINTENDENT Nontraumatic hemorrhage of right cerebral hemisphere CBC W AUTO DIFFERENTIAL Routine 09/03/2024 2:10 AM TRAFFIC SUPERINTENDENT Nontraumatic hemorrhage of right cerebral hemisphere BASIC METABOLIC PANEL (CALCIUM TOTAL) Routine 09/03/2024 2:10 AM TRAFFIC SUPERINTENDENT Nontraumatic hemorrhage of right cerebral hemisphere HEMOGLOBIN A1C Add on 08/31/2024 4:12 PM TRAFFIC SUPERINTENDENT Nontraumatic hemorrhage of right cerebral hemisphere from Last 3 Months or Most Recently Relevant to Health Maintenance Results * (ABNORMAL) GLUCOSE - POINT OF CARE (09/03/2024 12:25 PM TRAFFIC SUPERINTENDENT) Pathologist [facility] Glucose WB/POC 168(H) 70 - 99 mg/dL 09/03/2024 2:56 PM TRAFFIC SUPERINTENDENT [facility] Specimen Type Arterial 09/03/2024 2:56 PM TRAFFIC SUPERINTENDENT [facility] Blood BLOOD SPECIMEN / Unknown 09/03/2024 12:25 PM TRAFFIC SUPERINTENDENT 09/03/2024 2:56 PM TRAFFIC SUPERINTENDENT Reina Ma MD LAB - POINT OF CARE ORDERABLES [address] [address], [facility] [phone] * (ABNORMAL) CBC W AUTO DIFFERENTIAL (09/03/2024 2:10 AM TRAFFIC SUPERINTENDENT) Pathologist [facility] WBC 9.3 4.0 - 10.7 x10E9/L 09/03/2024 3:08 AM TRAFFIC SUPERINTENDENT [facility] RBC Count 3.38(L) 3.90 - 5.20 x10E12/L 09/03/2024 3:08 AM [facility] Hemoglobin 9.0(L) 11.9 - 15.8 g/dL 09/03/2024 3:08 AM [facility] Hematocrit 28.4(L) 34.8 - 46.1 % 09/03/2024 3:08 AM [facility] MCV 84.0 80.0 - 98.0 fL 09/03/2024 3:08 AM [facility] MCH 26.6(L) 26.7 - 33.6 pg 09/03/2024 3:08 AM [facility] MCHC 31.7 31.7 - 36.3 g/dL 09/03/2024 3:08 AM [facility] RDW-CV 15.0(H) 11.3 - 14.8 % 09/03/2024 3:08 AM [facility] Platelet Count 356 150 - 420 x10E9/L 09/03/2024 3:08 AM [facility] MPV 9.6 7.8 - 11.4 fL 09/03/2024 3:08 AM [facility] Neutrophil % 56.8 41.0 - 74.0 % 09/03/2024 3:08 AM [facility] Lymphocyte % 28.1 17.0 - 47.0 % 09/03/2024 3:08 AM [facility] Monocyte % 11.5(H) 3.0 - 11.0 % 09/03/2024 3:08 AM [facility] Eosinophil % 2.8 0.0 - 7.0 % 09/03/2024 3:08 AM [facility] Basophil % 0.4 0.0 - 1.6 % 09/03/2024 3:08 AM [facility] Immature Granulocytes % 0.4 0.0 - 1.0 % 09/03/2024 3:08 AM [facility] Neutrophil Absolute 5.27 1.60 - 7.50 x10E9/L 09/03/2024 3:08 AM [facility] Lymphocyte Absolute 2.61 1.00 - 4.40 x10E9/L 09/03/2024 3:08 AM [facility] Monocyte Absolute 1.07(H) 0.15 - 1.00 x10E9/L 09/03/2024 3:08 AM [facility] Eosinophil Absolute 0.26 0.00 - 0.60 x10E9/L 09/03/2024 3:08 AM [facility] Basophil Absolute 0.04 0.00 - 0.13 x10E9/L 09/03/2024 3:08 AM [facility] Blood BLOOD SPECIMEN / Unknown Lab Venipuncture / Unknown 09/03/2024 2:10 AM TRAFFIC SUPERINTENDENT 09/03/2024 3:02 AM [facility] Reina Ma MD LAB - HEMATOLOGY ORD ERABLES [facility] [address] [place] [address], [facility] [phone] * (ABNORMAL) BASIC METABOLIC PANEL (CALCIUM TOTAL) (09/03/2024 2:10 AM [facility]) BUN 26 7 - 26 mg/dL 09/03/2024 3:29 AM [facility] Creatinine 0.87 0.56 - 0.96 mg/dL 09/03/2024 3:29 AM [facility] Sodium 139 136 - 145 mmol/L 09/03/2024 3:29 AM [facility] Potassium 4.6(H) 3.5 - 4.5 mmol/L 09/03/2024 3:29 AM [facility] Chloride 109(H) 98 - 107 mmol/L 09/03/2024 3:29 AM [facility] CO2 22 22 - 29 mmol/L 09/03/2024 3:29 AM [facility] Glucose 125(H) 70 - 99 mg/dL 09/03/2024 3:29 AM [facility] Calcium 8.9 8.4 - 10.2 mg/dL 09/03/2024 3:29 AM [facility] Anion Gap 8 6 - 16 09/03/2024 3:29 AM [facility] BUN/Creatinine Ratio 30(H) 7 - 23 09/03/2024 3:29 AM [facility] Osmolality Calculated 294 275 - 295 mOsm/kg 09/03/2024 3:29 AM [facility] eGFR by CKD-EPI 69(L) >=90 mL/min/1.7 3 m2 09/03/2024 3:29 AM [facility] Blood BLOOD SPECIMEN / Unknown Lab Venipuncture / Unknown 09/03/2024 2:10 AM TRAFFIC SUPERINTENDENT 09/03/2024 3:02 AM TRAFFIC SUPERINTENDENT Reina Ma MD LAB - CHEMISTRY JONG DUNH[facility] [address] [address], [place] [phone] * PHOSPHORUS BLOOD (09/03/2024 2:10 AM TRAFFIC SUPERINTENDENT) Phosphorus 3.1 2.9 - 5.1 mg/dL 09/03/2024 3:29 AM [facility] Blood BLOOD SPECIMEN / Unknown Lab Venipuncture / Unknown 09/03/2024 2:10 AM TRAFFIC SUPERINTENDENT 09/03/2024 3:02 AM TRAFFIC SUPERINTENDENT Reina Ma MD LAB - CHEMISTRY JONG DUNHAM Performing Organization Address City/[facility]/ZIP Co de Phone Number [address] [address], [place] [phone] * MAGNESIUM BLOOD (09/03/2024 2:10 AM TRAFFIC SUPERINTENDENT) Magnesium 2.2 1.6 - 2.6 mg/dL 09/03/2024 3:29 AM TRAFFIC SUPERINTENDENT [facility] Blood BLOOD SPECIMEN / Unknown Lab Venipuncture / Unknown 09/03/2024 2:10 AM TRAFFIC SUPERINTENDENT 09/03/2024 3:02 AM TRAFFIC SUPERINTENDENT Reina Ma MD LAB - CHEMISTRY JONG DUNHAM [address] [address], [place] [phone] * (ABNORMAL) HEMOGLOBIN A1C (08/31/2024 4:12 PM TRAFFIC SUPERINTENDENT) Hemoglobin A1c 6.0(H) <=5.6 % 09/01/2024 8:55 AM [facility] Estimated Average Glucose 126 mg/dL 09/01/2024 8:55 AM [facility] Comment: HbA1c Interpretation: Normal : < 5.7% Pre-diabetes: 5.7-6.4% Diabetes: Equal to or greater than 6.5% Test results diagnostic of diabetes should be repeated for confirmation. Treatment target values recommended by ADA and other clinical organizations should be used to evaluate metabolic control in patients. Reference: [place] [employer], Standards of Care in Diabetes -2020 In patients 70 years and older consider HbA1c target range of 7.0-7.5% (Reference: Davon Goldstein et al. JAMDA. 2012) The Sebia assay for the measurement of HbA1c is a National Glycohemoglobin Standardization Program (NGSP) certified method. Blood BLOOD SPECIMEN / Unknown Lab Venipuncture / Unknown 08/31/2024 4:12 PM TRAFFIC SUPERINTENDENT 08/31/2024 4:33 PM TRAFFIC SUPERINTENDENT Ayan Livingston MD LAB - CHEMISTRY JONG DUNHAM [facility] Organization Address City/State/ZIP Co de Phone Number [facility] [address] [place] [address], [facility] [phone] from Last 3 Months or Most Recently Relevant to Health Maintenance Advance Directives * Full Code (Latest Code Status on File) Date Activated Date Inactivated Comments 08/31/2024 11:06 AM 09/03/2024 3:17 PM Care Teams Parts Sales Manager Relationship Specialty Start Date End Date Provider, No Pcp PCP - General 08/30/24
--- OUTSIDE RECORDS SUMMARY | 2024-12-02 07:55 | XMS_ITS | Continuity of Care Document ---
Author Organization [employer] [facility] [place], [place] Address [address] [place] [address] Phone Care Team Providers Care Clocksmith Name Role Phone Femi Wiggins MD Unavailable [...] Diagnoses Date Provider Providers Copied on Encounter [facility], [address], [place], [place], [address], [place] tel:[phone] SEC Jason SARMIENTO Professional Diabetic eye exam (chief complaint) Type 2 diabetes mellitus without complication sPresence of intraocular lensExdtve age-rel mclr degn, right eye, with inact chrdl neovasNexdtv e age-related mclr degn, left eye, early dry stage 3 Feliciano Kahn. [address] [facility], [facility] [place], [address], [place]. tel:[phone] Referring Provider: Angelina Marroquin MD K, [address] [facility], [address], [place], [address]. tel:[phone] Office/outpa tient Visit, Est [facility], [address], [place], [place], [address], tel:[phone] SEC [place] Professional 6 month Complete (chief complaint) Presence of intraocular lensExdtve age-rel mclr degn, right eye, with inact chrdl neovasHistor y of endophthalmi tisOther secondary cataract, right eyeType 2 diabetes mellitus without complication sVitreous degeneration , bilateral Maurice- 2 Jerrica OD Denise. [facility] [place] Self [employer] Document Preparation, [address], [place], [place], [address], [place]. tel:[phone] Referring Provider: Angelina Dela Cruz, [address] [place] [address], [facility] [address], [place], [address]. tel:[phone] [employer] [facility], [facility] [address], [place], [place], [address], tel:[phone] SEC Jason SARMIENTO Professional 1 month s/p PCIOL (chief complaint) Post op visit Aug- 1 Jerrica OD Denise. [facility] [place] [employer] Document Preparation, [address], [place], [place], [address], [place]. tel:[phone] Referring Provider: Angelina Dela Cruz, [address] [facility], [facility] [address], [place], [address]. tel:[phone] [employer] [facility], [address], [place], [place], [address], tel:[phone] SEC Jason SARMIENTO Professional 1 wk po PCIOL OS (08/14/21) (chief complaint) Post op visit Dec-0 1 Jerrica OD Denise. [facility] [place] [employer] Document Preparation, [address], [place], [place], [address], . tel:[phone] Referring Provider: Angelina Dela Cruz, [address] [facility], [address], [place], [address]. tel:[phone] [facility], [address] [place], [place], [place], [address], [place] tel:[phone] SEC [place] Professional 1 day s/p PCIOL (chief complaint) Post op visit 0 1 Jerrica BRYANT Denise. [address] [place] [address] Drive, [address], [place], [place], [address], [place]. tel:[phone] Referring Provider: Angelina Dela Cruz, [address] [facility], [facility] [address], [place], [address]. tel:[phone] [facility], [address] [place], [place], [place], [address], [place] tel:[phone] [place] [facility] [place] No Information 1 Feliciano Kahn. [address] [facility], [place], [address], [place]. tel:[phone] Referring Provider: Angelina Dela Cruz, [address] [place] [address], [facility] [address], [place], [address]. tel:[phone] [facility], [address] [place] [address], [place], [place], [address], [place] [phone] SEC [place] Professional No Information 1 Feliciano Kahn. [address] [facility], [address], [place], [place], [address], [place]. tel:[phone] Referring Provider: Angelina Dela Cruz, [address] [facility], [address], [place], [address]. tel:[phone] Office/outpa tient Visit, Est [facility], [address] [place], [place], [place], [address], [place] [phone] SEC [place] Professional 6 month Cataract check (chief complaint) Exdtve age-rel mclr degn, right eye, with inact chrdl neovasType 2 diabetes mellitus without complication sNexdtve age-related mclr degn, left eye, early dry stageCombine d forms of age-related cataract, left eye Oct-2 1 Feliciano Kahn. [address] [employer], [address] [place], [address], [place]. tel:[phone] Referring Provider: Angelina Dela Cruz, [address] [facility], [address], [place], [address]. tel:[phone] [facility], [address] [place] [address], [place], [place], [address], [place] tel:[phone] SEC Jason SARMIENTO Professional 6 month Cataract check (chief complaint) Nexdtve age-related mclr degn, left eye, early dry stageExdtve age-rel mclr degn, right eye, with inact chrdl neovasPseudo phakia of right eyeAge-relat ed nuclear cataract, left eyeOther secondary cataract, right eyeVitreous degeneration , bilateralTyp e 2 diabetes mellitus without complication s Apr-2 1 Feliciano Kahn. [address] [employer], [address], [place], [place], [address], [place]. tel:[phone] Referring Provider: Angelina Dela Cruz, [address] [facility], [address], [place], [address]. tel:[phone] [facility], [address] [place], [place], [place], [address], [place] [phone] SEC Jason [place] Professional No Information Apr-0 1 Feliciano Kahn. [address] [employer], [address], [place], [place], [address], [place]. tel:[phone] Office/outpa tient Visit, Est [facility], [address] [place] [address] [address], [place], [place], [address], tel:[phone] SEC Jason SARMIENTO Professional Complete exam (chief complaint) Type 2 diabetes mellitus without complication sPseudophaki a of right eyeNexdtve age-related mclr degn, left eye, early dry stageCombine d forms of age-related cataract, left eyeOther secondary cataract, right eyeExdtve age-rel mclr degn, right eye, with inact chrdl neovas Oct-2 7202 0 Feliciano Kahn. [address] [facility], [address], [place], [place], [address], [place]. tel:[phone] Referring Provider: Angelina Dela Cruz, [address] [place] [address], [facility] [address], [place], [address]. tel:[phone] [facility], [address] [place] [address] [address], [place], [place], [address], tel:[phone] SEC Jason SARMIENTO Professional Postop PCIOL OD (11/30/19) (chief complaint) Post op visit Dec-2 202 0 Bety OD Fermín. [address] [facility], 6th Floor, [place], [address], [place]. tel:[phone] Referring Provider: Angelina Dela Cruz, [address] [place] [address], [address], [place], [address]. tel:[phone] [facility], [address] [place] [address] [address], [place], [place], [address], [place] tel:[phone] SEC [place] Shelbi[place] 1 week s/p PCIOL (chief complaint) Post op visit Nov-3 0-202 0 Kristy Funes. [address] [place] [address] Drive, [address], [place], [place], [address], [place]. tel:[phone] Referring Provider: Angelina Dela Cruz, [address] [facility], [facility] [address], [place], [address]. tel:[phone] [facility], [address] [place] [address], [place], [place], [address], [place] tel:[phone] SEC Jason SARMIENTO Professional 1 day s/p PCIOL (chief complaint) Post op visit 0 Bety MANNY Fermín. [address] [facility], 6th Floor, [place], [address], [place]. tel:[phone] Referring Provider: Angelina Dela Cruz, [address] [facility], [address], [place], [address]. tel:[phone] [facility], [address] [place] [address], [place], [place], [address], [place] tel:[phone] [facility] No Information 0 Feliciano Kahn. [address] [facility], [facility] [place], [address], [place]. tel:[phone] Referring Provider: Angelina Dela Cruz, [address] [facility], [address], [place], [address]. tel:[phone] [facility], [address] [place] [address], [place], [place], [address], [place] tel:[phone] SEC Jason SARMIENTO Professional No Information 0 Feliciano Kahn. [address] [facility], [facility] [place], [address], [place]. tel:[phone] Referring Provider: Angelina Dela Cruz, [address] [facility], [address], [place], [address]. tel:[phone] Office/outpa tient Visit, [facility], [address] [place] [address], [place], [place], [address], [place] tel:[phone] SEC Jason SARMIENTO Professional Cataract evaluation (chief complaint) Combined forms of age-related cataract, bilateralTyp e 2 diabetes mellitus without complication sNexdtve age-related mclr degn, left eye, early dry stagePunctat e keratitis, left eyeHistory of endophthalmi tisExdtve age-rel mclr degn, right eye, with inact chrdl neovas 0-202 0 Feliciano Kahn. [address] [facility], [address], [place], [place], [address], [place]. tel:[phone] Referring Provider: Angelina Marroquin MD K, [address] [facility], [address], [place], [address]. tel:[phone] [facility], [address] [place] [address], [place], [place], [address], [place] tel:[phone] SEC Jason GUILLER[place] Professional No Information 0 Feliciano Kahn. [address] [facility], [facility] [address], [place], [place], [address], [place]. tel:[phone] [facility], [address] [place] [address], [place], [place], [address], [place] tel:[phone] SEC Jason GUILLERMINA Professional Blurry vision (chief complaint) Lesion of eyelidNuclea r sclerosis of both eyesMacular pigment epithelial detachment, rightType 2 diabetes mellitus without complication s 3-201 6 Feliciano Kahn. [address] [facility], [facility] [address], [place], [place], [address], [place]. tel:[phone] Referring Provider: Sharonda Aparicio OD, [facility] [address] [facility], [place], [address]. tel:[phone] Family History Family Member Type Diagnosis Age At Onset No Information Payers Payer name Insurance type Covered constitution party ID Authoriza tion(s) [place] GRECIA [id number] Aetna Mdcr Supp CI [id number] Social History Type Description Quantity Date Captured [...]
== END 2024-12-02 07:51 | disposition home or self-care (01) ==
LOC: CHSIMG 07:51
PROVIDERS: PCP Nurse Practitioner Family; Visit Provider Nurse Practitioner Family
DX: R74.8 Abnormal levels of other serum enzymes (principal); I70.0 Atherosclerosis of aorta
CPT/HCPCS: 74160; Q9967

== ENCOUNTER 2024-12-08 13:00 | Outpatient (RCR) | payer MEDICARE, SELFPAY ==
--- NOTE | 2024-09-13 14:55 | OPREHPOC ---
Outpatient Therapy Plan of Care This is a Multidisciplinary Plan of Care that may contain components documented by all disciplines (PT, OT, and ST.) PT Problem 1 PT Problem #1 Knowledge Deficit PT Goal 1 Goal / Goal Update The patient will be independent in a home exercise program. Target Visit 4 PT Problem 2 PT Problem #2 Impaired Functional Mobility PT Goal 1 Goal / Goal Update The patient will be able to ambulate 300 feet with the least restrictive AD possible. Target Visit 12 PT Problem 3 PT Problem #3 Impaired Balance PT Goal 1 Goal / Goal Update The patient will score at least 20/28 on the Tinetti Balance Scale indicating a moderate fall risk rather than high fall risk. The patient will improve TUG time to under 15 seconds. Target Visit 12 PT Problem 4 PT Problem #4 Impaired Strength PT Goal 1 Goal / Goal Update The patient will demonstrate 4+/5 in bilateral LE myotomes. The patient will be able to transfer sit to stand without help from her UE indicating improved functional strength in the LE. Target Visit 12
--- NOTE | 2024-09-13 14:55 | PTOPEVAL1 ---
Assessment and note entered by Jennyfer Herrmann PT Evaluation Information Assessment Status Evaluation Diagnosis Nontraumatic Intracerebral hemorrhage Other ICD-10 Condition Codes ( I61.9 PT) Onset 08/31/24 Subjective Information Kelly presents with her who reports she had another stroke on 08/31/24. She was found to have a brain bleed and a blood clot in her left leg. Her reports she had trouble walking on so he called an ambulance and was taken to [facility] and then transferred to [facility] where she stayed until 09/03/24. She was evaluated by PT at the hospital. She is now using a walker instead of a cane. She is able to perform bathing, grooming, and toileting on her own. Her is helping with donning socks and buttoning her shirt occasionally. 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 She has not had any falls since returning home. She is able to get up and go to the bathroom in the middle of the night by herself. She did not have home health after she was discharged. Reported Pain Level Pain Score Moderate Pain: Valdez Homer Additional Pain Score Comments Left knee Assessment PT Clinical Summary Kelly Kaba presents nearly 2 weeks s/p intracerebral hemorrhage. She spent 4 days in the hospital. She has had a decline in her ability to ambulate since then and has had to go back to using a walker instead of a cane. Her also reports he has to help her with getting dressed. She objectively demonstrates decreased LE strength , impaired gait, decreased endurance, and decreased balance. She is currently a high fall risk. She will benefit from skilled PT to address these limitations. Plan of Care Interventions Gait Training,Neuro Re-education,Patient/Caregiver Education,Therapeutic Activities,Therapeutic Exercise PT Services Indicated Yes Treatment Frequency and 3 times a week for 12 visits Duration These treatments will address the objective and functional deficits as defined above. The patient will be advanced safely and appropriately in order for the patient to progress towards his/her prior level of function. Additional exercises will be introduced and as well as a comprehensive home exercise program upon discharge, if needed, ?to ensure carryover of functional gains achieved in the clinic. This treatment plan has been reviewed and agreement upon by the patient.
--- NOTE | 2024-09-13 14:57 | BUSTOPEVAL1 ---
Assessment and note entered by Aliyah Lyles DATA REDUCTION TECHNICIAN Evaluation Information Assessment Status Evaluation Other ICD-10 Condition Codes ( R47.[address]) Subjective Information Patient was referred for a skilled ST evaluation due to a recent CVA on August 31, 2024 impacting patient's ability to walk and speak. The patient' s reported that upon onset the patient had difficulty standing up and he called 911. The patient was hospitalized for several days and now has returned home. The patient's father reported that he notices an increase in slurred speech along with difficulty with language skills and cognition. The patient was recently being seen for skilled ST prior to recent CVA and was showing good progression in verbal expression skills, memory, organizational skills and speech intelligibility skills. Reported Pain Level Pain Score Moderate Pain: Valdez Coronel Pain Score 7: Self Report Additional Pain Score Comments Left knee Additional Pain Score Comments Patient reported sharp pain in her knee while sitting down during assessment. She reported that the pain went away toward the end of the session. Assessment ST Clinical Summary Patient was referred for a skilled ST evaluation due to a recent CVA August 31, 2024 resulting in an increase in slurred speech, difficulty with memory, and difficulty with verbal expression skills. Patient's reported that she is more difficult to understanding now and also has an increase in difficulty walking since this most recent stroke. The patient was participating in ST treatment prior to this most recent CVA. During the evaluation the patient presented with an increase in difficulty with speech intelligibility skills with frequent request to repeat utterance spoken. Patient presented with an increase in slurred speech, slow rate and wet/gurgle vocal quality at the word, phrase, sentence and conversation level. She presented with weak labial seal and facial droop resulting in anterior loss of saliva while speaking during the assessment. The patient reported that she has an increase in difficulty managing her saliva but does not have any difficulty with swallowing at this time. The Mini-Mental State Examination was administered during the session with a score of 18/30 indicating a moderate level of impairment at this time. Through testing during the evaluation patient presented with difficulties; following 3 step directions, moderate/complex paragraph retention, moderate/complex reading comprehension, difficulty solving functional mathematical equations, bisyllabic word repetition, phrase and sentence repetition, complex confrontational naming, sentence formation, divergent naming and connected speech tasks. Recommendation for skilled ST treatment to target aphasia to improve patient 's cognitive-communication skills to reduce frustration and improve overall communication abilities within patient's environment. Recommendation for skilled ST 1x/week for 10 visits. Plan of Care Interventions Treatment of Speech,Treatment of Language Treatment Frequency and 1x/week for 10 visits Duration These treatments will address the objective and functional deficits as defined above. The patient will be advanced safely and appropriately in order for the patient to progress towards his/her prior level of function. Additional exercises will be introduced and as well as a comprehensive home exercise program upon discharge, if needed, ?to ensure carryover of functional gains achieved in the clinic. This treatment plan has been reviewed and agreement upon by the patient.
--- NOTE | 2024-09-23 10:11 | PCPTNOTE ---
reports he is coming down with a cold and does not want to get out in this weather.
--- NOTE | 2024-10-18 13:51 | OPREHPOC ---
Outpatient Therapy Plan of Care This is a Multidisciplinary Plan of Care that may contain components documented by all disciplines (PT, OT, and ST.) PT Problem 1 PT Problem #1 Knowledge Deficit PT Goal 1 Goal / Goal Update The patient will be independent in a home exercise program. Target Visit 4 Progress Met PT Goal 2 Goal / Goal Update uses for assistance PT Problem 2 PT Problem #2 Impaired Functional Mobility PT Goal 1 Goal / Goal Update The patient will be able to ambulate 300 feet with the least restrictive AD possible. Target Visit 12 Progress Met PT Problem 3 PT Problem #3 Impaired Balance PT Goal 1 Goal / Goal Update The patient will score at least 20/28 on the Tinetti Balance Scale indicating a moderate fall risk rather than high fall risk. The patient will improve TUG time to under 15 seconds. progressing towards Target Visit 12 PT Problem 4 PT Problem #4 Impaired Strength PT Goal 1 Goal / Goal Update The patient will demonstrate 4+/5 in bilateral LE myotomes. The patient will be able to transfer sit to stand without help from her UE indicating improved functional strength in the LE. able to complete, but uses UE's for safety Target Visit [address] Problem 1 ST Problem #[address] Goal 1 Goal / Goal Update 1. Patient will participate in home programming to improve carryover/generalization of skills to patient's environment. Target Visit [address] Problem #[address] Goal 1 Goal / Goal Update 1. Patient will complete recent memory and working memory tasks through paragraph recall, pic recall , paired words with 90% accuracy and min cues. 2. Patient will perform thought organization tasks (sequencing, categorization tasks) with 90% accuracy and minimal cues. ST Problem 3 ST Problem #[address] Goal 1 Goal / Goal Update 1. Patient will complete word retrieval tasks through word finding activities (opposites, object function, synonyms) with 90% accuracy and min cues. 2. Patient will complete convergent/divergent naming tasks with 90% accuracy (naming 12+ items) with min cues. 3. Patient will describe various pictures through complete sentences with minimal cues and 90% accuracy. Target Visit [address] Problem #[address] Goal 1 Goal / Goal Update 1. Patient will imitate trisyllabic words with 90% accuracy and minimal cues to improve speech intelligibility skills. 2. Patient will imitate sentences at the 7+ word level w/ 90% accuracy and minimal cues to improve overall speech intelligibility skills through use of SLOP. Target Visit 10
--- NOTE | 2024-10-18 13:52 | PTOPPROGNS ---
Assessment and note entered by JT File, PT Evaluation Information Assessment Status Progress Diagnosis Nontraumatic Intracerebral hemorrhage Other ICD-10 Condition Codes ( I61.9 PT) Onset 08/31/24 Subjective Information patient reports she feels Good today. she reports she has no pain. she reports she has had no falls. she reports she does exercises at home with her . Assessment PT Clinical Summary mrs. balderrama presents to skilled PT services for her 10th skilled therapy visit today. she presents with improved performance on the TUG test, 5x sit to stand, and ambulation endurance. she is progressing towards and has met several goals thus far in skilled PT. continued skilled PT is indicated to improve patients remaining objective/ functional deficits and return to her prior level functional activity performance/quality of life. Plan of Care Interventions Gait Training,Neuro Re-education,Patient/Caregiver Education,Therapeutic Activities,Therapeutic Exercise PT Services Indicated Yes Treatment Frequency and continue per initial POC Duration These treatments will address the objective and functional deficits as defined above. The patient will be advanced safely and appropriately in order for the patient to progress towards his/her prior level of function. Additional exercises will be introduced and as well as a comprehensive home exercise program upon discharge, if needed, ?to ensure carryover of functional gains achieved in the clinic. This treatment plan has been reviewed and agreement upon by the patient.
[2024-10-27 13:05] VITALS: O2SAT 50
--- NOTE | 2024-11-03 14:59 | OPREHPOC ---
Outpatient Therapy Plan of Care This is a Multidisciplinary Plan of Care that may contain components documented by all disciplines (PT, OT, and ST.) PT Problem 1 PT Problem #1 Knowledge Deficit PT Goal 1 Goal / Goal Update The patient will be independent in a home exercise program. -met Target Visit 4 Progress Met PT Goal 2 Goal / Goal Update uses for assistance PT Problem 2 PT Problem #2 Impaired Functional Mobility PT Goal 1 Goal / Goal Update The patient will be able to ambulate 300 feet with the least restrictive AD possible. -met Target Visit 12 Progress Met PT Problem 3 PT Problem #3 Impaired Balance PT Goal 1 Goal / Goal Update The patient will score at least 20/28 on the Tinetti Balance Scale indicating a moderate fall risk rather than high fall risk. -met The patient will improve TUG time to under 15 seconds. -not met Target Visit 12 Progress Partially Met PT Problem 4 PT Problem #4 Impaired Strength PT Goal 1 Goal / Goal Update The patient will demonstrate 4+/5 in bilateral LE myotomes. -partially met (4/5 for right hip flexion) The patient will be able to transfer sit to stand without help from her UE indicating improved functional strength in the LE. -met Target Visit [address] Problem 1 ST Problem #[address] Goal 1 Goal / Goal Update 1. Patient will participate in home programming to improve carryover/generalization of skills to patient's environment. Target Visit [address] Problem #[address] Goal 1 Goal / Goal Update 1. Patient will complete recent memory and working memory tasks through paragraph recall, pic recall , paired words with 90% accuracy and min cues. 2. Patient will perform thought organization tasks (sequencing, categorization tasks) with 90% accuracy and minimal cues. ST Problem 3 ST Problem #[address] Goal 1 Goal / Goal Update 1. Patient will complete word retrieval tasks through word finding activities (opposites, object function, synonyms) with 90% accuracy and min cues. 2. Patient will complete convergent/divergent naming tasks with 90% accuracy (naming 12+ items) with min cues. 3. Patient will describe various pictures through complete sentences with minimal cues and 90% accuracy. Target Visit [address] Problem #[address] Goal 1 Goal / Goal Update 1. Patient will imitate trisyllabic words with 90% accuracy and minimal cues to improve speech intelligibility skills. 2. Patient will imitate sentences at the 7+ word level w/ 90% accuracy and minimal cues to improve overall speech intelligibility skills through use of SLOP. Target Visit 10
--- NOTE | 2024-11-03 14:59 | PTOPDC ---
Assessment and note entered by Jennyfer Herrmann, PT Evaluation Information Assessment Status Discharge Diagnosis Non-traumatic Intracerebral Hemorrhage Other ICD-10 Condition Codes ( I61.9 PT) Onset 08/31/24 Subjective Information Kelly Kaba reports she has not had any falls at home and she is able to get around her home independently. She has returned to getting dressed , showering, and going to the bathroom independently as well. She denies pain. She would like to be discharged from PT. Reported Pain Level Pain Score 0: Self Report Pain Score 0: Self Report Assessment PT Clinical Summary Kelly Kaba has completed 12 skilled PT visits for weakness following a CVA sustained on 08/31/24. She is reporting no pain, no falls, and independence with dressing, toileting, and bathing . She demonstrates improved LE strength, improved balance, and improved endurance. She does still have a moderate fall risk. She will be discharged from skilled PT. Plan of Care PT Services Indicated No
--- NOTE | 2024-11-24 18:46 | STOPPROG ---
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 The patient' s reported that upon onset the patient had difficulty standing up and he called 911. The patient was hospitalized for several days and now has returned home. The patient's reported that he notices an increase in slurred speech along with difficulty with language skills and cognition. The patient was recently being seen for skilled ST prior to recent CVA and was showing good progression in verbal expression skills, memory, organizational skills and speech intelligibility skills. Patient has completed a total of [address] sessions for the treatment of speech and language skills. The patient continues to demonstrate difficulty with production of speech due to dysarthria along with reported increase in difficulty with swallowing. Patient reported that she feels she has some difficulty with her swallowing and her reported that he notices difficulty with most meals. To target some compensatory techniques along with exercises to improve swallowing function and decrease risk for aspiration. Assessment ST Clinical Summary Patient was referred for a skilled ST evaluation due to a recent CVA August 31, 2024 resulting in an increase in slurred speech, difficulty with memory, and difficulty with verbal expression skills. Patient's reported that she is more difficult to understanding now and also has an increase in difficulty walking since this most recent stroke. The patient was participating in ST treatment prior to this most recent CVA. The patient has completed a total of [address] treatment sessions for the treatment of aphasia since the initial evaluation on 09-13-24. The Mini -Mental State Examination was administered during the initial evaluation with a score of 18/30 indicating a moderate level of impairment. Test was re-administered during the session this date with a score of 24/30 indicating a mild cognitive impairment at this time. Patient has shown improvements in memory tasks, sequencing household tasks (4 steps), word retrieval skills, and production of multisyllabic words through use of SLOP (slow, loud, over articulate and pause between words). Patient and recently reported that the patient continues to have more difficulty with swallowing since this most recent stroke. Patient was seen with trials of level 7 solids and level 0 thin fluids during the session and patient presented with decreased strength/ROM of lips and tongue impacting bolus formation and propulsion. Patient presented with significant holding of fluids indicating difficulty initiating swallow placing at an increased risk for aspiration. The Mc Assessment of Swallowing Ability (MASA) was given with a score of 160 indicating moderate dysphagia and a mild risk for aspiration at this time. Recommendation for skilled ST treatment to target aphasia and dysphagia I69.891 to improve patient's cognitive- communication skills to reduce frustration, improve overall communication abilities within patient's environment, and reduce risk for aspiration through improved tolerance of least restrictive diet. Recommendation for skilled ST 1x /week for 10 visits. Plan of Care Interventions Treatment of Speech,Treatment of Language ST Services Indicated Yes Treatment Frequency and 1x/week for 10 visits Duration These treatments will address the objective and functional deficits as defined above. The patient will be advanced safely and appropriately in order for the patient to progress towards his/her prior level of function. Additional exercises will be introduced and as well as a comprehensive home exercise program upon discharge, if needed, ?to ensure carryover of functional gains achieved in the clinic. This treatment plan has been reviewed and agreement upon by the patient.
[2024-12-01 13:05] VITALS: O2SAT 90
--- NOTE | 2024-12-13 15:30 | PCSTNOTE ---
This treatment is being continued on visit number [id number]. Please see documentation on both accounts to view progress. Completed interventions, outcomes, and problems have been marked as Inactive to facilitate the copying of the Care plan routine for recurring accounts.
== END 2024-12-12 23:59 | disposition home or self-care (01) ==
LOC: CHSST 13:00
PROVIDERS: PCP Nurse Practitioner Family; Visit Provider Nurse Practitioner Family
DX: R47.01 Aphasia (principal)
CPT/HCPCS: 76536; 92507; 92523; 92526; 96125; 97110; 97112; 97161; 97530; 97750

== ENCOUNTER 2025-02-01 11:22 | Outpatient (CLI) | payer MEDICARE, SELFPAY ==
--- OUTSIDE RECORDS SUMMARY | 2025-02-01 11:49 | XMS_ITS | Clinical Summary ---
Author Organization [facility] [address] Address [address] [place] [address] Care Team Providers Care Shear Operator Helper Name Role Phone Angélica Horton NP Primary Care Provider [phone] Allergies Active Allergy Reactions Criticality Noted Date [...] 3 Active vitamins A,C,E-zinc-mayela er (ICAPS) 14,320-226-200 zanv-ss-oxkq capsule Take by mouth Active cholecalciferol (VITAMIN D-3) 23320 unit tablet Take 2,000 Units by mouth [...] 2 sprays into each nostril daily Active multivitamin tabletIndicatio ns:Vitamin Deficiency Prevention Take 1 tablet by mouth Active Active Problems Problem Noted Date Diagnosed Date Mixed hyperlipidemia 12/30/2024 Assessment & Plan (12/30/2024 10:49 AM CDT): Stable continue Lipitor Mesenteric artery stenosis 12/30/2024 Assessment & Plan (12/30/2024 10:48 AM CDT): Evidence of moderate to severe atherosclerotic disease to the visceral vessels, overall is asymptomatic from a mesenteric ischemia standpoint, no unintended weight loss abdominal pain or food fear. Needs no further testing from my standpoint. If she develops symptoms suggestive of chronic mesenteric ischemia happy to see her as needed. Cardiac pacemaker in situ 07/30/2023 Overview (07/30/2023): [employer] Micra AV Leadless Pacemaker. Dx; Tachy/Deniz, Junctional, PAF. DOI 07/30/2023-Tila. Janialink has not been ordered yet. Atrial fibrillation 02/20/2023 Aphasia as late effect of stroke 02/20/2023 Neuropathy 02/20/2023 Cerebrovascular accident 02/20/2023 Chronic obstructive pulmonary disease 10/16/2022 Enthesopathy of knee 10/16/2022 Essential hypertension 10/16/2022 Assessment & Plan (12/30/2024 10:49 AM CDT): Stable continue atenolol Osteoarthritis of knee 10/16/2022 Peripheral enthesopathy 10/16/2022 Right bundle branch block 10/16/2022 Encounters Date Type Department Care Team Description 12/28/2024 9:45 AM CDT Office Visit [facility] [address] [place] [address] John Arshad MD Mesenteric artery stenosis (Primary Dx); Chronic vascular insufficiency of intestine; Essential hypertension; Atrial fibrillation, unspecified type (HCC); Mixed hyperlipidemia from Last 3 Months Immunizations Immunization Administration Dates Next Due Influenza, [...] you are drinking? Patient does not drink 3 Q3: How often do you have si x or more drinks on one occasion? 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 Gender Identity Not on file Sexual Orientation Not on file Obstetrics History Last Filed Vital Signs Vital Sign Reading Time Taken Comments Blood Pressure 119/77 12/28/2024 10:20 AM CDT Pulse 75 12/28/2024 10:20 AM CDT Temperature 36.4 C (97.5 F) 12/24/2022 8:33 AM CDT Respiratory Rate - - Oxygen Saturation 100% 12/28/2024 10:20 AM CDT Inhaled Oxygen Concentration - - Weight 54.4 kg (120 lb) 12/28/2024 10:20 AM CDT Height 152.4 cm (5') 12/28/2024 10:20 AM CDT Body Mass Index 23.44 12/28/2024 10:20 AM CDT Plan of Treatment Health Maintenance [...] 07/16/2021, 12/13/2020, Additional history exists Influenza Vaccine (Season Ended) 2025 07/17/2022, 07/16/2021, 06/21/2019, Additional history exists Insurance MEDICARE [employer] MEDICARE [employer] SENIOR SUPPLEMENT Care Teams Shear Operator Helper Relationship Specialty Start Date End Date Angélica Horton CYTOLOGY LABORATORY MANAGER [address] [place] [address] PCP - General Nurse Practitioner 10/07/22
--- OUTSIDE RECORDS SUMMARY | 2025-02-01 11:49 | XMS_ITS | Clinical Summary ---
Author Organization [facility] [employer] Address [address] [place] [address] Care Team Providers Care Lift Team Technician Name Role Phone Provider, No Pcp Primary Care Provider Unavailab le Source Comments [facility] [employer]non-owned Affiliates and Associated Physician Practices is amultiple site organization consisting of ambulatory clinics and hospital sitesin [place], [place], [place] and [place]. This disclosure is being madepursuant to the Care Everywhere program and may not contain all information available regarding this patient. Last updated 18.[facility] [employer] Allergies Active Allergy Reactions Criticality Noted Date Comments Unruly Inhibitors Angioedema,Anaphylaxis High 3 Acetaminophen Other Low 10/16/2022 Codeine Other Low 10/16/2022 Hydrochlorothiazide Other High 10/16/2022 HYPONATREMIA Tramadol Nausea and/or Vomiting Low 10/16/2022 Triamterene Other Low 10/16/2022 HYPONATREMIA Medications * Be aware that medications may not be up to date on this document. Alwaysverify current medications with the patient. amiodarone (Pacerone) 100 MG tabletIndication s:Atrial Fibrillation Take 1 (one) tablet by mouth once daily Reasons: Atrial Fibrillation 90 tablet 3 4 025 Active atenolol (Tenormin) 25 MG tabletIndication s:Atrial Fibrillation Take 1 (one) tablet by mouth once daily Reasons: Atrial Fibrillation 90 tablet 3 4 025 Active atorvastatin (Lipitor) 40 MG tablet Take 1 (one) tablet by mouth at bedtime 100 tablet 3 4 025 Active losartan (Cozaar) 50 MG tablet Take 1 (one) tablet by mouth once daily 100 tablet 3 4 025 Active rivaroxaban (Xarelto) 20 MG tabletIndication s:Atrial Fibrillation,Cher p Vein Thrombosis Take 1 (one) tablet by mouth daily with dinner Reasons: Atrial Fibrillation, Blood Clot in a Deep Vein 90 tablet 3 4 025 Active spironolactone (Aldactone) 50 MG tablet Take 1 (one) tablet by mouth once daily 90 tablet 3 4 025 Active vitamin D3 (Cholecalciferol ) 25 MCG (1000 UNITS) tablet Take 2 (two) tablets by mouth once daily Active Multiple Vitamins-Mineral s (PreserVision AREDS 2) capsule Take 2 (two) [...] Recorded Patient Health Questionnaire-2 Score 0 09/03/2024 [facility] Occupat ional [facility] - Occupational Stress [...] any time in the past 12 m [facility], were you homeless or living in a snf (including now)? No 08/31/2024 Comments Unknown Sex and Gender Information Value Date Recorded Sex Assigned at Not on file Legal Sex Female 4:14 PM BUSHEL GIRL Gender Identity Not on file Sexual Orientation Not on file Last Filed Vital Signs Vital Sign Reading Time Taken Comments Blood Pressure 141/70 09/03/2024 8:04 AM BUSHEL GIRL Pulse 105 09/03/2024 8:04 AM [facility] GIRL Temperature 36.6 C (97.9 F) 09/03/2024 8:04 AM [facility] GIRL Respiratory Rate 18 09/03/2024 8:04 AM BUSHEL GIRL Oxygen Saturation 100% 09/03/2024 8:04 AM [facility]HEL GIRL Inhaled Oxygen Concentration - - Weight 56.7 kg (125 lb) 09/01/2024 8:07 PM BUSHEL GIRL Height 162.6 cm (5' 4 ) 09/01/2024 8:07 PM BUSHEL GIRL Body Mass Index 21.46 09/01/2024 8:07 PM BUSHEL GIRL Plan of Treatment Health Maintenance Due Date [...] 08/31/2024 DIABETES - URINE PROTEIN SCREENING 09/14/2024 COVID-19 VACCINE ( season) 2024 06/07/2024, 06/12/2023, 07/17/2022, Additional history exists DIABETES-HGB A1C 03/01/2025 08/31/2024 DIABETES-SERUM CREATININE 09/03/20252023, 09/02/2024, 09/01/2024, Additional history exists INFLUENZA VACCINE Completed 06/07/2024, [...] Procedure Name Priority Date/Time Associated Diagnosis Comments BASIC METABOLIC PANEL (CALCIUM TOTAL) Routine 09/03/2024 2:10 AM BUSHEL GIRL Nontraumatic hemorrhage of right cerebral hemisphere HEMOGLOBIN A1C Add on 08/31/2024 4:12 PM BUSHEL GIRL Nontraumatic hemorrhage of right cerebral hemisphere from Last 3 Months or Most Recently Relevant to Health Maintenance Results * (ABNORMAL) BASIC METABOLIC PANEL (CALCIUM TOTAL) (09/03/2024 2:10 AM BUSHEL GIRL) BUN 26 7 - 26 mg/dL 09/03/2024 3:29 AM [facility] Creatinine 0.87 0.56 - 0.96 mg/dL 09/03/2024 3:29 AM [facility] Sodium 139 136 - 145 mmol/L 09/03/2024 3:29 AM [facility] Potassium 4.6(H) 3.5 - 4.5 mmol/L 09/03/2024 3:29 AM [facility] Chloride 109(H) 98 - 107 mmol/L 09/03/2024 3:29 AM [facility] CO2 22 22 - 29 mmol/L 09/03/2024 3:29 AM [facility] Glucose 125(H) 70 - 99 mg/dL 09/03/2024 3:29 AM [facility] Calcium 8.9 8.4 - 10.2 mg/dL 09/03/2024 3:29 AM [facility] Anion Gap 8 6 - 16 09/03/2024 3:29 AM [facility] BUN/Creatinine Ratio 30(H) 7 - 23 09/03/2024 3:29 AM [facility] Osmolality Calculated 294 275 - 295 mOsm/kg 09/03/2024 3:29 AM [facility] eGFR by CKD-EPI 69(L) >=90 mL/min/1.7 3 m2 09/03/2024 3:29 AM [facility] Blood BLOOD SPECIMEN / Unknown Lab Venipuncture / Unknown 09/03/2024 2:10 AM [facility]HEL GIRL 09/03/2024 3:02 AM [facility] us Reina Ma MD LAB - CHEMISTRY ORDERABLES F inal Result [facility] [address] [place] [address], [facility] [phone] * (ABNORMAL) HEMOGLOBIN A1C (08/31/2024 4:12 PM BUSHEL GIRL) Hemoglobin A1c 6.0(H) <=5.6 % 09/01/2024 8:55 AM BUSHEL GIRL [facility] Estimated Average Glucose 126 mg/dL 09/01/2024 8:55 AM BUSHEL GIRL [facility] Comment: HbA1c Interpretation: Normal : < 5.7% Pre-diabetes: 5.7-6.4% Diabetes: Equal to or greater than 6.5% Test results diagnostic of diabetes should be repeated for confirmation. Treatment target values recommended by ADA and other clinical organizations should be used to evaluate metabolic control in patients. Reference: [place] [employer], Standards of Care in Diabetes -2020 In patients 70 years and older consider HbA1c target range of 7.0-7.5% (Reference: Davon Goldstein et al. JAMDA. 2012) The Sebia assay for the measurement of HbA1c is a National Glycohemoglobin Standardization Program (NGSP) certified method. Blood BLOOD SPECIMEN / Unknown Lab Venipuncture / Unknown 08/31/2024 4:12 PM BUSHEL GIRL 08/31/2024 4:33 PM BUSHEL GIRL Ayan Livingston MD LAB - CHEMISTRY ORDERABLES Fi nal Result [facility] [address] [place] [address], [facility] [phone] from Last 3 Months or Most Recently Relevant to Health Maintenance Insurance MEDICARE AET MEDICARE AET Advance Directives * Full Code (Latest Code Status on File) Date Activated Date Inactivated Comments 08/31/2024 11:06 AM 09/03/2024 3:17 PM Care Teams Lift Team Technician Relationship Specialty Start Date End Date Provider, No Pcp PCP - General 08/30/24
--- OUTSIDE RECORDS SUMMARY | 2025-02-01 11:49 | XMS_ITS | Continuity of Care Document ---
Author Organization [employer] [facility] Address [address] [place] [address] Phone Care Team Providers Care Rn Hospice Name Role Phone Femi Wiggins MD Unavailable [...] Diagnoses Date Provider Providers Copied on Encounter [facility], [address], [place], [place], [address], [place] tel:[phone] SEC Jason SARMIENTO Professional Diabetic eye exam (chief complaint) Type 2 diabetes mellitus without complication sPresence of intraocular lensExdtve age-rel mclr degn, right eye, with inact chrdl neovasNexdtv e age-related mclr degn, left eye, early dry stage 3 Feliciano Kahn. [address] [facility], [facility] [place], [address], [place]. tel:[phone] Referring Provider: Angelina Marroquin MD K, [address] [facility], [address], [place], [address]. tel:[phone] Office/outpa tient Visit, Est [facility], [address] [employer] [address], [place], [place], [address], tel:[phone] SEC [place] Professional 6 month Complete (chief complaint) Presence of intraocular lensExdtve age-rel mclr degn, right eye, with inact chrdl neovasHistor y of endophthalmi tisOther secondary cataract, right eyeType 2 diabetes mellitus without complication sVitreous degeneration , bilateral Maurice- 2 Jerrica OD Denise. [facility] [address], [address], [place], [place], [address], [place]. tel:[phone] Referring Provider: Angelina Dela Cruz, [address] [place] [address], [facility] [address], [place], [address]. tel:[phone] [employer] [facility] [employer] [facility], [facility] [employer] [address], [place], [place], [address], tel:[phone] SEC Jason SARMIENTO Professional 1 month s/p PCIOL (chief complaint) Post op visit Aug- 1 Jerrica OD Denise. [facility] [address], [address], [place], [place], [address], [place]. tel:[phone] Referring Provider: Angelina Dela Cruz, [address] [facility], [facility] [address], [place], [address]. tel:[phone] [employer] [facility] [employer] [facility], [address] [employer] [address], [place], [place], [address], tel:[phone] SEC Jason SARMIENTO Professional 1 wk po PCIOL OS (08/14/21) (chief complaint) Post op visit Dec-0 1 Jerrica OD Denise. [facility] [address], [address], [place], [place], [address], . tel:[phone] Referring Provider: Angelina Dela Cruz, [address] [facility], [address], [place], [address]. tel:[phone] [facility], [address], [place], [place], [address], [place] tel:[phone] SEC Jason [place] Professional 1 day s/p PCIOL (chief complaint) Post op visit 0 1 Jerrica BRYANT Denise. [address] [place] [address] Drive, [address], [place], [place], [address], [place]. tel:[phone] Referring Provider: Angelina Dela Cruz, [address] [facility], [facility] [address], [place], [address]. tel:[phone] [facility], [address], [place], [place], [address], [place] tel:[phone] [facility] [facility] No Information 1 Feliciano Kahn. [address] [facility], [place], [address], [place]. tel:[phone] Referring Provider: Angelina Dela Cruz, [address] [place] [address], [facility] [address], [place], [address]. tel:[phone] [facility], [address], [place], [place], [address], [place] [phone] SEC Jason GUILLERMINA Professional No Information 1 Feliciano Kahn. [address] [facility], [address], [place], [place], [address], [place]. tel:[phone] Referring Provider: Angelina Dela Cruz, [address] [facility], [address], [place], [address]. tel:[phone] Office/outpa tient Visit, Est [facility], [address], [place], [place], [address], [place] [phone] SEC [place] Professional 6 month Cataract check (chief complaint) Exdtve age-rel mclr degn, right eye, with inact chrdl neovasType 2 diabetes mellitus without complication sNexdtve age-related mclr degn, left eye, early dry stageCombine d forms of age-related cataract, left eye Oct-2 1 Feliciano Kahn. [address] [employer], [address] [place], [address], [place]. tel:[phone] Referring Provider: Angelina Dela Cruz, [address] [facility], [address], [place], [address]. tel:[phone] [facility], [address], [place], [place], [address], [place] tel:[phone] SEC Jason SARMIENTO Professional 6 month Cataract check (chief complaint) Nexdtve age-related mclr degn, left eye, early dry stageExdtve age-rel mclr degn, right eye, with inact chrdl neovasPseudo phakia of right eyeAge-relat ed nuclear cataract, left eyeOther secondary cataract, right eyeVitreous degeneration , bilateralTyp e 2 diabetes mellitus without complication s Apr-2 1 Feliciano Kahn. [address] [employer], [address], [place], [place], [address], [place]. tel:[phone] Referring Provider: Angelina Dela Cruz, [address] [facility], [address], [place], [address]. tel:[phone] [facility], [address], [place], [place], [address], [place] [phone] SEC Jason [place] Professional No Information Apr-0 1 Feliciano Kahn. [address] [employer], [address], [place], [place], [address], [place]. tel:[phone] Office/outpa tient Visit, Est [facility] [facility], [address] [place] [address] [address], [place], [place], [address], tel:[phone] SEC Jason SARMIENTO Professional Complete exam (chief complaint) Type 2 diabetes mellitus without complication sPseudophaki a of right eyeNexdtve age-related mclr degn, left eye, early dry stageCombine d forms of age-related cataract, left eyeOther secondary cataract, right eyeExdtve age-rel mclr degn, right eye, with inact chrdl neovas Oct-2 7202 0 Feliciano Kahn. [address] [facility], [address], [place], [place], [address], [place]. tel:[phone] Referring Provider: Angelina Dela Cruz, [address] [place] [address], [facility] [address], [place], [address]. tel:[phone] [facility], [address] [place] [address] [address], [place], [place], [address], tel:[phone] SEC Jason SARMIENTO Professional Postop PCIOL OD (11/30/19) (chief complaint) Post op visit Dec-2 202 0 Bety OD Fermín. [address] [facility], [address], [place], [address], [place]. tel:[phone] Referring Provider: Angelina Dela Cruz, [address] [place] [address], [address], [place], [address]. tel:[phone] [facility], [address] [place] [address] [address], [place], [place], [address], [place] tel:[phone] SEC [place] N Shelbiyonis 1 week s/p PCIOL (chief complaint) Post op visit Nov-3 0-202 0 Kristy Funes. [address] [place] [address] Drive, [address], [place], [place], [address], [place]. tel:[phone] Referring Provider: Angelina Dela Cruz, [address] [facility], [facility] [address], [place], [address]. tel:[phone] [facility], [address], [place], [place], [address], [place] tel:[phone] SEC Jason SARMIENTO Professional 1 day s/p PCIOL (chief complaint) Post op visit 0 Bety MANNY Fermín. [address] [facility], [address]th [address], [place], [address], [place]. tel:[phone] Referring Provider: Angelina Dela Cruz, [address] [facility], [address], [place], [address]. tel:[phone] [facility], [address], [place], [place], [address], [place] tel:[phone] [facility] No Information 0 Feliciano Kahn. [address] [facility], [facility] [place], [address], [place]. tel:[phone] Referring Provider: Angelina Dela Cruz, [address] [facility], [address], [place], [address]. tel:[phone] [facility], [address], [place], [place], [address], [place] tel:[phone] SEC Jason SARMIENTO Professional No Information 0 Feliciano Kahn. [address] [facility], [facility] [place], [address], [place]. tel:[phone] Referring Provider: Angelina Dela Cruz, [address] [facility], [address], [place], [address]. tel:[phone] Office/outpa tient Visit, [facility], [address], [place], [place], [address], [place] tel:[phone] SEC Jason SARMIENTO Professional Cataract evaluation (chief complaint) Combined forms of age-related cataract, bilateralTyp e 2 diabetes mellitus without complication sNexdtve age-related mclr degn, left eye, early dry stagePunctat e keratitis, left eyeHistory of endophthalmi tisExdtve age-rel mclr degn, right eye, with inact chrdl neovas 0-202 0 Feliciano Kahn. [address] [facility], [address], [place], [place], [address], [place]. tel:[phone] Referring Provider: Angelina Marroquin MD K, [address] [facility], [address], [place], [address]. tel:[phone] [facility] [facility], [address], [place], [place], [address], [place] tel:[phone] SEC Jason GUILLERMINA Professional No Information 0 Feliciano Kahn. [address] [facility], [facility] [address], [place], [place], [address], [place]. tel:[phone] [facility], [address], [place], [place], [address], [place] tel:[phone] SEC [place] GUILLERMINA Professional Blurry vision (chief complaint) Lesion of eyelidNuclea r sclerosis of both eyesMacular pigment epithelial detachment, rightType 2 diabetes mellitus without complication s 3-201 6 Feliciano Kahn. [address] [facility], [facility] [address], [place], [place], [address], [place]. tel:[phone] Referring Provider: Sharonda Aparicio OD, [facility] [address] [facility], [place], [address]. tel:[phone] Family History Family Member Type Diagnosis Age At Onset No Information Payers Payer name Insurance type Covered democrat ID Authoriza tion(s) Medicare [place] GRECIA [id number] Aetna Mdcr Supp CI [id number] Social History Type Description Quantity Date Captured [...]
--- OUTSIDE RECORDS SUMMARY | 2025-02-01 11:49 | XMS_ITS | Referral Summary ---
Author Organization [facility] [address] Address [address] [place] [address] Care Team Providers Care Fitness Worker Name Role Phone Angléica Horton NP Primary Care Provider [phone] Encounters Date Type Department Care Team Description 12/28/2024 9:45 AM CDT Office Visit [facility] at [address] [place] [address] John Arshad MD Mesenteric artery stenosis (Primary Dx); Chronic vascular insufficiency of intestine; Essential hypertension; Atrial fibrillation, unspecified type (HCC); Mixed hyperlipidemia from Last 3 Months Allergies Active Allergy [...] 3 Active vitamins A,C,E-zinc-mayela er (ICAPS) 14,320-226-200 hliq-nb-bwxt capsule Take by mouth Active cholecalciferol (VITAMIN D-3) 34831 unit tablet Take 2,000 Units by mouth [...] on file 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
[2025-02-01 12:15] LABS: Basophils Absolute Auto 0.04 K/mm3 (0.00-0.10); Basophils Percent Auto 0.6 % (0.0-1.0); Eosinophils Absolute Auto 0.12 K/mm3 (0.02-0.50); Eosinophils Percent Auto 1.7 % (1.0-6.0); Hematocrit 33.6 % (35.0-42.0); Hemoglobin 10.3 g/dL (11.7-13.8); Immature Granulocyte Absolute 0.02 K/mm3 (0.00-0.00); Immature Granulocyte Percent A 0.3 % (0.0-0.0); Lymphocytes Absolute Auto 1.71 K/mm3 (1.10-4.50); Mean Corpuscular HGB Conc 30.7 g/dL (32-36); Mean Corpuscular Hemoglobin 27.7 pg (27.0-31.0); Mean Corpuscular Volume 90.3 fL (78.0-102.0); Mean Platelet Volume 9.7 fl (9.2-11.8); Monocytes Absolute Auto 0.57 K/mm3 (0.10-0.90); Neutrophils Absolute Auto 4.66 K/mm3 (1.70-7.20); Neutrophils Percent Auto 65.4 % (50.0-70.0); Platelet Count Result 287 K/mm3 (150-420); Red Blood Count 3.72 M/mm3 (4.20-5.40); Red Cell Distribution Width 18.9 % (11.6-14.4); White Blood Count 7.1 K/mm3 (4.8-10.8)
[2025-02-01 12:40] LABS: Alanine Aminotransferase 93 U/L (6-35); Albumin Level 3.9 g/dL (3.5-5.1); Alkaline Phosphatase 95 U/L (38-126); Anion Gap 5 mmol/L (4-12); Aspartate Amino Transferase 81 U/L (14-36); Bilirubin,Total 0.4 mg/dL (0.2-1.3); Blood Urea Nitrogen 29 mg/dL (7-17); Calcium 9.3 mg/dL (8.4-10.2); Carbon Dioxide 27 mmol/L (22-30); Chloride 106 mmol/L (98-107); Estimated Glomerular Filt Rate 59; Glucose 156 mg/dL (65-110); Iron 60 ug/dL (37-170); Osmolality Calculated 294 mOsm/kg (285-295); Potassium 4.7 mmol/L (3.4-5.0); Sodium 138 mmol/L (137-145); Total Protein 6.3 g/dL (6.3-8.2)
[2025-02-01 12:49] LABS: Percent Iron Saturation 16 % (20-50)
[2025-02-01 12:56] LABS: Free T4 Free Thyroxine 1.84 ng/dL (0.78-2.19)
[2025-02-02 20:27] LABS: Vitamin D 25 Hydroxy 51 ng/mL (30-100)
[2025-02-03 06:03] LABS: Total Triiodothyronine (T3) 48 ng/dL (76-181)
== END 2025-02-01 11:23 | disposition home or self-care (01) ==
LOC: CHSLAB 11:24
PROVIDERS: PCP Nurse Practitioner Family; Visit Provider Nurse Practitioner Family
DX: E04.1 Nontoxic single thyroid nodule (principal); E03.9 Hypothyroidism, unspecified; E55.9 Vitamin D deficiency, unspecified; D50.9 Iron deficiency anemia, unspecified; Z79.899 Other long term (current) drug therapy; I10 Essential (primary) hypertension; R74.8 Abnormal levels of other serum enzymes; R79.89 Other specified abnormal findings of blood chemistry; D64.9 Anemia, unspecified; E53.8 Deficiency of other specified B group vitamins
CPT/HCPCS: 36415; 80053; 82306; 82607; 82728; 83540; 83550; 83735; 84439; 84443; 84480; 85025

== ENCOUNTER 2025-03-13 14:00 | Outpatient (RCR) | payer MEDICARE, SELFPAY ==
[2024-12-13 00:02] VITALS: O2SAT 50; O2SAT 90
--- NOTE | 2024-12-13 15:31 | PCSTNOTE ---
The treatment documented on this account is a continuation of the treatment documented on visit number [id number]. Please see documentation on both accounts to view progress. The Plan of Care has been transitioned and updated within the new A#. I have addressed and agree with the discipline specific Problems, Interventions, and Goals for the current certification period. Completed interventions, outcomes, and problems have been marked as Inactive to facilitate the copying of the Care plan routine for recurring accounts.
[2024-12-15 13:00] VITALS: O2SAT 70
[2025-01-05 13:00] VITALS: O2SAT 83
--- NOTE | 2025-01-26 17:49 | PCSTNOTE ---
Patient's called & cancelled scheduled appointment this date due to extreme fatigue.
--- NOTE | 2025-02-13 11:08 | BUSTOPEVAL1 ---
Assessment and note entered by Aliyah Lyles, WASH OPERATOR Evaluation Information Assessment Status Progress ICD-10 Condition Codes (ST) Dysarthria following other cerebrovascular disease I69.822,Dysphagia following other cerebrovascular disease I69.891 Other ICD-10 Condition Codes ( R47.01 Aphasia, Dysarthria I69.822 ST) Subjective Information Patient was referred for a skilled ST evaluation due to a recent CVA on August 31, 2024 impacting patient's ability to walk, speak, and increased difficulty swallowing. The patient's reported that upon onset the patient had difficulty standing up and he called 911. The patient was hospitalized for several days and now has returned home. The patient was recently being seen for skilled ST prior to recent CVA and was showing good progression in verbal expression skills, memory, organizational skills and speech intelligibility skills. Patient has completed a total of [address] sessions for the treatment of speech and language skills since the previous progress report written on 11-24-24. The patient continues to demonstrate difficulty with production of speech due to dysarthria along with difficulty swallowing. Swallowing has been a focus throughout the past [address] sessions targeting strengthening, diet modification/ training and compensatory techniques to improve airway protection with noted improvements. Patient and reported improvements but continues to see difficulty tolerating solids/liquids at times. Plan for skilled ST treatment is to shift focus to primarily dysarthria for speech/ strengthening oral motor function along with swallowing function to improve airway protection and decrease risk for aspiration. Reported Pain Level Pain Score 0: Self Report Pain Score 0: Self Report Pain Score 0: Self Report Pain Score 0: Self Report Pain Score 0: Self Report Pain Score 0: Self Report Pain Score 0: Self Report Pain Score 0: Self Report Pain Score 0: Self Report Additional Pain Score Comments Left knee Assessment ST Clinical Summary Patient was referred for a skilled ST evaluation due to a recent CVA August 31, 2024 resulting in an increase in slurred speech, difficulty with memory, and difficulty with verbal expression skills. The patient was participating in ST treatment prior to this most recent CVA. The patient has completed a total of [address] treatment sessions for the treatment of aphasia since the previous progress report written on . Patient and have noticed improvements in cognitive-communication skills along with swallowing function. The Mini-Mental State examination (MMSE) was given on 09-13-24 with a score of 18/30 indicating moderate cognitive impairment (range is 18-23), MMSE was given during the session on 11-24-24 with score of 24/30 indicating mild cognitive impairment at this time (range 20-25) for testing and again was given this date 02-09-25 with score of 21/30 indicating mild cognitive impairment at this time (range 20-25) for testing. Difficulty noted with word recall and orientation questions. Patient has shown improvements in memory tasks, sequencing household tasks (4 steps), word retrieval skills, and production of multisyllabic words through use of SLOP (slow, loud, over articulate and pause between words). The patient continues to demonstrate difficulty with swallowing with shift in focus for skilled ST treatment to target dysarthria and dysphagia at this time due to the plateau in skills for cognitive function at this time. The Mc Assessment of Swallowing Ability ( MASA) was given on 11-24-24 with a score of 160 indicating moderate dysphagia and a mild risk for aspiration at this time. Recommendation for skilled ST treatment to target dysarthria and dysphagia I69.891 to improve patient's cognitive- communication skills to reduce frustration, improve overall communication abilities within patient's environment, and reduce risk for aspiration through improved tolerance of least restrictive diet. Recommendation for skilled ST 1x /week for 10 visits. These treatments will address the objective and functional deficits as defined above. The patient will be advanced safely and appropriately in order for the patient to progress towards his/her prior level of function. Additional exercises will be introduced and as well as a comprehensive home exercise program upon discharge, if needed, ?to ensure carryover of functional gains achieved in the clinic. This treatment plan has been reviewed and agreement upon by the patient.
--- NOTE | 2025-02-13 11:09 | OPREHPOC ---
Outpatient Therapy Plan of Care This is a Multidisciplinary Plan of Care that may contain components documented by all disciplines (PT, OT, and ST.) PT Problem 1 PT Problem #1 Knowledge Deficit PT Goal 1 Goal / Goal Update The patient will be independent in a home exercise program. -met Target Visit 4 Progress Met PT Goal 2 Goal / Goal Update uses for assistance PT Problem 2 PT Problem #2 Impaired Functional Mobility PT Goal 1 Goal / Goal Update The patient will be able to ambulate 300 feet with the least restrictive AD possible. -met Target Visit 12 Progress Met PT Problem 3 PT Problem #3 Impaired Balance PT Goal 1 Goal / Goal Update The patient will score at least 20/28 on the Tinetti Balance Scale indicating a moderate fall risk rather than high fall risk. -met The patient will improve TUG time to under 15 seconds. -not met Target Visit 12 Progress Partially Met PT Problem 4 PT Problem #4 Impaired Strength PT Goal 1 Goal / Goal Update The patient will demonstrate 4+/5 in bilateral LE myotomes. -partially met (4/5 for right hip flexion) The patient will be able to transfer sit to stand without help from her UE indicating improved functional strength in the LE. -met Target Visit [address] Problem 1 ST Problem #[address] Goal 1 Goal / Goal Update 1. Patient will participate in home programming to improve carryover/generalization of skills to patient's environment. Target Visit [address] Problem 2 ST Problem #[address] Goal 1 Goal / Goal Update 1. Patient will complete recent memory and working memory tasks through paragraph recall, pic recall , paired words with 90% accuracy and min cues. 11-24-24: Continue goal with 70% accuracy and moderate cues. 02-09-25: Discharge goal with no change in MMSE and 50-66% accuracy for paragraph recall at the simple level. 2. Patient will perform thought organization tasks (sequencing, categorization tasks) with 90% accuracy and minimal cues. 11-24-24: Continue goal with 60% accuracy and max cues. 02-09-25: Discharge goal with 70% accuracy and moderate cues. Target Visit [address] Goal 2 Goal / Goal Update Discharge goals with shift in focus for swallowing and dysarthria ST Problem 3 ST Problem #[address] Goal 1 Goal / Goal Update GOALS discharged: 1. Patient will complete word retrieval tasks through word finding activities (opposites, object function, synonyms) with 90% accuracy and min cues. 11-24-24: Continue goal with 75% accuracy and minimal cues. 02-09-25: Discharge goal with 60-70% accuracy and minimal to moderate cues. 2. Patient will complete convergent/divergent naming tasks with 90% accuracy (naming 12+ items) with min cues. 11-24-24: Continue goal with 65% accuracy and moderate cues. 02-09-25: Discharge goal with 60% accuracy and moderate cues. 3. Patient will describe various pictures through complete sentences with minimal cues and 90% accuracy. 11-24-24: Discharge goal with limited progress with 50% accuracy over several sessions. Target Visit [address] Goal 2 Goal / Goal Update Speech intelligibility: 1. Patient will imitate trisyllabic words with 90% accuracy and minimal cues to improve speech intelligibility skills. 11-24-24: Continue goal with 65% accuracy and moderate cues. 02-09-25: Continue goal with 75% accuracy and moderate cues. 2. Patient will imitate sentences at the 7+ word level w/ 90% accuracy and minimal cues to improve overall speech intelligibility skills through use of SLOP. 11-24-24: Continue goal with 50% accuracy and max cues. 02-09-25: Continue goal with 55% accuracy and moderate cues. GOAL ADDED: 1. Patient will perform diadochokinetic tasks completing 5-10 reps (3 productions of /p,t,k/) for 15 seconds with minimal cues to improve speech production. Target Visit [address] Problem 4 ST Problem #[address] Goal 1 Goal / Goal Update Swallowin. Patient will utilized trained compensatory techniques to improve airway protection with minimal cues and no overt signs or symptoms of aspiration. 02-09-25: Continue goal with with moderate cues and cough 0-1x with trials. 2. Patient will perform oral motor exercises ( lingual, labial, lingual backing) to improve strength for bolus formation/propulsion 12 reps with minimal cues. 02-09-25: Continue goal with 12 reps with moderate cues. 3. Patient will perform laryngeal elevation/ adduction exercises 12 reps with minimal cues to improve airway protection. 02-09-25: Continue goal with 10 reps and moderate/ max cues. Target Visit 10 Progress Not Met
--- NOTE | 2025-03-16 09:04 | PCSTNOTE ---
This treatment is being continued on visit number [id number]. Please see documentation on both accounts to view progress. Completed interventions, outcomes, and problems have been marked as Inactive to facilitate the copying of the Care plan routine for recurring accounts.
== END 2025-03-15 23:59 | disposition home or self-care (01) ==
LOC: CHSST 14:00
PROVIDERS: PCP Nurse Practitioner Family; Visit Provider Nurse Practitioner Family
DX: R47.01 Aphasia (principal); I61.9 Nontraumatic intracerebral hemorrhage, unspecified
CPT/HCPCS: 92507; 92526

== ENCOUNTER 2025-03-20 14:28 | Outpatient (CLI) | payer MEDICARE, SELFPAY ==
--- OUTSIDE RECORDS SUMMARY | 2025-03-20 14:31 | XMS_ITS | Clinical Summary ---
Author Organization [facility] Address [address] [place] [address] Care Team Providers Care Sterile Processing Tech Name Role Phone Provider, No Pcp Primary Care Provider Unavailab le Source Comments [facility],non-owned Affiliates and Associated Physician Practices is amultiple site organization consisting of ambulatory clinics and hospital sitesin [place], [place], [place] and [place]. This disclosure is being madepursuant to the Care Everywhere program and may not contain all information available regarding this patient. Last updated 18.[facility] Allergies Active Allergy Reactions Criticality Noted Date [...] Recorded Patient Health Questionnaire-2 Score 0 09/03/2024 [facility] - Occupational Stress [...] time in the past 12 m [facility], were you homeless or living in a snf (including now)? No 08/31/2024 Comments Unknown Sex and Gender Information Value Date Recorded Sex Assigned at Not on file Legal Sex Female 4:14 PM TANK BUILDER HELPER Gender Identity Not on file Sexual Orientation Not on file Last Filed Vital Signs Vital Sign Reading Time Taken Comments Blood Pressure 141/70 09/03/2024 8:04 AM TANK BUILDER HELPER Pulse 105 09/03/2024 8:04 AM TANK BUILDER HELPER Temperature 36.6 C (97.9 F) 09/03/2024 8:04 AM TANK BUILDER HELPER Respiratory Rate 18 09/03/2024 8:04 AM TANK BUILDER HELPER Oxygen Saturation 100% 09/03/2024 8:04 AM TANK BUILDER HELPER Inhaled Oxygen Concentration - - Weight 56.7 kg (125 lb) 09/01/2024 8:07 PM TANK BUILDER HELPER Height 162.6 cm (5' 4) 09/01/2024 8:07 PM TANK BUILDER HELPER Body Mass Index 21.46 09/01/2024 8:07 PM TANK BUILDER HELPER Plan of Treatment Health Maintenance Due Date [...] Additional history exists DIABETES-HGB A1C 03/01/2025 08/31/2024 INFLUENZA VACCINE (#1) 2025 , 06/12/2023, 07/17/2022, Additional history exists DIABETES-SERUM CREATININE 09/03/20252023, 09/02/2024, 09/01/2024, Additional history exists HEPATITIS B VACCINE Aged [...] PANEL (CALCIUM TOTAL) Routine 09/03/2024 2:10 AM TANK BUILDER HELPER Nontraumatic hemorrhage of right cerebral hemisphere HEMOGLOBIN A1C Add on 08/31/2024 4:12 PM TANK BUILDER HELPER Nontraumatic hemorrhage of right cerebral hemisphere from Last 3 Months or Most Recently Relevant to Health Maintenance Results * (ABNORMAL) BASIC METABOLIC PANEL (CALCIUM TOTAL) (09/03/2024 2:10 AM TANK BUILDER HELPER) BUN 26 7 - 26 mg/dL 09/03/2024 3:29 AM [facility] Creatinine 0.87 0.56 - 0.96 mg/dL 09/03/2024 3:29 AM [facility] Sodium 139 136 - 145 mmol/L 09/03/2024 3:29 AM [facility] Potassium 4.6(H) 3.5 - 4.5 mmol/L 09/03/2024 3:29 AM [facility] Chloride 109(H) 98 - 107 mmol/L 09/03/2024 3:29 AM [facility] CO2 22 22 - 29 mmol/L 09/03/2024 3:29 AM [facility] Glucose 125(H) 70 - 99 mg/dL 09/03/2024 3:29 AM [facility] Calcium 8.9 8.4 - 10.2 mg/dL 09/03/2024 3:29 AM [facility] Anion Gap 8 6 - 16 09/03/2024 3:29 AM [facility] BUN/Creatinine Ratio 30(H) 7 - 23 09/03/2024 3:29 AM [facility] Osmolality Calculated 294 275 - 295 mOsm/kg 09/03/2024 3:29 AM [facility] eGFR by CKD-EPI 69(L) >=90 mL/min/1.7 3 m2 09/03/2024 3:29 AM [facility] Blood BLOOD SPECIMEN / Unknown Lab Venipuncture / Unknown 09/03/2024 2:10 AM TANK BUILDER HELPER 09/03/2024 3:02 AM [facility] us Reina Ma MD LAB - CHEMISTRY ORDERABLES F inal Result [facility] [address] [place] [id number], [facility] [phone] * (ABNORMAL) HEMOGLOBIN A1C (08/31/2024 4:12 PM [facility]) Hemoglobin A1c 6.0(H) <=5.6 % 09/01/2024 8:55 AM [facility] Estimated Average Glucose 126 mg/dL 09/01/2024 8:55 AM [facility] Comment: HbA1c Interpretation: Normal : < 5.7% Pre-diabetes: 5.7-6.4% Diabetes: Equal to or greater than 6.5% Test results diagnostic of diabetes should be repeated for confirmation. Treatment target values recommended by ADA and other clinical organizations should be used to evaluate metabolic control in patients. Reference: [place] [employer], Standards of Care in Diabetes -2020 In patients 70 years and older consider HbA1c target range of 7.0-7.5% (Reference: Davon Goldstein et al. JAMDA. 2012) The Sebia assay for the measurement of HbA1c is a National Glycohemoglobin Standardization Program (NGSP) certified method. Blood BLOOD SPECIMEN / Unknown Lab Venipuncture / Unknown 08/31/2024 4:12 PM TANK BUILDER HELPER 08/31/2024 4:33 PM TANK BUILDER HELPER Ayan Livingston MD LAB - CHEMISTRY ORDERABLES Fi nal Result [facility] [address] [place] [address], [facility] [phone] from Last 3 Months or Most Recently Relevant to Health Maintenance Insurance MEDICARE AETNA MEDICARE AETNA Advance Directives * Full Code (Latest Code Status on File) Date Activated Date Inactivated Comments 08/31/2024 11:06 AM 09/03/2024 3:17 PM Care Teams Sterile Processing Tech Relationship Specialty Start Date End Date Provider, No Pcp PCP - General 08/30/24
--- OUTSIDE RECORDS SUMMARY | 2025-03-20 14:31 | XMS_ITS | Continuity of Care Document ---
Author Organization [facility] [place] [place] Address [address] [place] [address] Phone Care Team Providers Care Application Internship Name Role Phone Femi Wiggins MD [...] Provider Providers Copied on Encounter [facility], [address], [place], [place], [id number], [place] tel:[phone] SEC Jason SARMIENTO Professional Diabetic eye exam (chief complaint) Type 2 diabetes mellitus without complication sPresence of intraocular lensExdtve age-rel mclr degn, right eye, with inact chrdl neovasNexdtv e age-related mclr degn, left eye, early dry stage 3 Feliciano Kahn. [address], [facility] [place], [address], [place]. tel:[phone] Referring Provider: Angelina Marroquin MD K, [address], [address], [place], [address]. tel:[phone] Office/outpa tient Visit, Est [facility], [address], [place], [place], [address], tel:[phone] SEC [place] Professional 6 month Complete (chief complaint) Presence of intraocular lensExdtve age-rel mclr degn, right eye, with inact chrdl neovasHistor y of endophthalmi tisOther secondary cataract, right eyeType 2 diabetes mellitus without complication sVitreous degeneration , bilateral Maurice- 2 Jerrica OD Denise. [facility] [address], [address], [place], [place], [address], [place]. tel:[phone] Referring Provider: Angelina Dela Cruz, [address] [place] [address], [facility] [place], [place], [address]. tel:[phone] [facility], [facility] [address], [place], [place], [address], tel:[phone] SEC Jason SARMIENTO Professional 1 month s/p PCIOL (chief complaint) Post op visit Aug- 1 Jerrica OD Denise. [facility] [address], [address], [place], [place], [address], [place]. tel:[phone] Referring Provider: Angelina Dela Cruz, [address], [facility] [address], [place], [address]. tel:[phone] [facility], [address], [place], [place], [address], tel:[phone] SEC Jason SARMIENTO Professional 1 wk po PCIOL OS (08/14/21) (chief complaint) Post op visit Dec-0 1 Jerrica OD Denise. [facility] [address], [address], [place], [place], [address], . tel:[phone] Referring Provider: Angelina Dela Cruz, [address] [address], [address], [place], [address]. tel:[phone] [facility], [address], [place], [place], [address], [place] tel:[phone] SEC [place] Professional 1 day s/p PCIOL (chief complaint) Post op visit 0 1 Jerrica BRYANT Denise. [address] [place] [address] Drive, [address], [place], [place], [address], [place]. tel:[phone] Referring Provider: Angelina Dela Cruz, [address], [facility] [address], [place], [address]. tel:[phone] [facility], [address], [place], [place], [address], [place] tel:[phone] [facility] [place] No Information 1 Feliciano Kahn. [address], [address] [place], [address], [place]. tel:[phone] Referring Provider: Angelina Dela Cruz, [address] [place] [address], [facility] [address], [place], [address]. tel:[phone] [facility], [address], [place], [place], [address], [place] [phone] SEC Jason GUILLERMINA Professional No Information 1 Feliciano Kahn. [address], [address], [place], [place], [address], [place]. tel:[phone] Referring Provider: Angelina Dela Cruz, [address], [address], [place], [address]. tel:[phone] Office/outpa tient Visit, Est [facility], [address], [place], [place], [address], [place] [phone] SEC [place] Professional 6 month Cataract check (chief complaint) Exdtve age-rel mclr degn, right eye, with inact chrdl neovasType 2 diabetes mellitus without complication sNexdtve age-related mclr degn, left eye, early dry stageCombine d forms of age-related cataract, left eye Oct-2 1 Feliciano Kahn. [address], [address] [place], [address], [place]. tel:[phone] Referring Provider: Angelina Dela Cruz, [address], [address], [place], [address]. tel:[phone] [facility], [address], [place], [place], [address], [place] tel:[phone] SEC Jason SARMIENTO Professional 6 month Cataract check (chief complaint) Nexdtve age-related mclr degn, left eye, early dry stageExdtve age-rel mclr degn, right eye, with inact chrdl neovasPseudo phakia of right eyeAge-relat ed nuclear cataract, left eyeOther secondary cataract, right eyeVitreous degeneration , bilateralTyp e 2 diabetes mellitus without complication s Apr-2 1 Feliciano Kahn. [address], [address], [place], [place], [address], [place]. tel:[phone] Referring Provider: Angelina Dela Cruz, [address], [address], [place], [address]. tel:[phone] [facility], [address], [place], [place], [address], [place] [phone] SEC Jason [place] Professional No Information Apr-0 1 Feliciano Kahn. [address], [address], [place], [place], [address], [place]. tel:[phone] Office/outpa tient Visit, Est [facility], [id number] [place] [address] [address], [place], [place], [address], tel:[phone] SEC Jason SARMIENTO Professional Complete exam (chief complaint) Type 2 diabetes mellitus without complication sPseudophaki a of right eyeNexdtve age-related mclr degn, left eye, early dry stageCombine d forms of age-related cataract, left eyeOther secondary cataract, right eyeExdtve age-rel mclr degn, right eye, with inact chrdl neovas Oct-2 7202 0 Feliciano Kahn. [address] [facility], [address], [place], [place], [address], [place]. tel:[phone] Referring Provider: Angelina Dela Cruz, [address] [place] [address], [facility] [address], [place], [address]. tel:[phone] [facility], [address] [place] [address] [address], [place], [place], [address], tel:[phone] SEC Jason SARMIENTO Professional Postop PCIOL OD (11/30/19) (chief complaint) Post op visit Dec-2 202 0 Bety OD Fermín. [address] [address], [address], [place], [address], [place]. tel:[phone] Referring Provider: Angelina Dela Cruz, [address] [place] [address], [address], [place], [address]. tel:[phone] [facility], [address] [place] [address] [address], [place], [place], [address], [place] tel:[phone] SEC [place] N Shelbiyonis 1 week s/p PCIOL (chief complaint) Post op visit Nov-3 0-202 0 Kristy Funes. [address] [place] [address] Drive, [address], [place], [place], [address], [place]. tel:[phone] Referring Provider: Angelina Dela Cruz, [address] [facility], [facility] [address], [place], [address]. tel:[phone] [facility], [address], [place], [place], [address], [place] tel:[phone] SEC Jason SARMIENTO Professional 1 day s/p PCIOL (chief complaint) Post op visit 0 Bety MANNY Fermín. [address] [facility], [address], [place], [address], [place]. tel:[phone] Referring Provider: Angelina Dela Cruz, [address] [facility], [address], [place], [address]. tel:[phone] [facility], [address], [place], [place], [address], [place] tel:[phone] [facility] No Information 0 Feliciano Kahn. [address] [facility] [facility], [facility] [place], [address], [place]. tel:[phone] Referring Provider: Angelina Dela Cruz, [address] [facility], [address], [place], [address]. tel:[phone] [facility], [address], [place], [place], [address], [place] tel:[phone] SEC Jason SARMIENTO Professional No Information 0 Feliciano Kahn. [address] [facility], [facility] [place], [address], [place]. tel:[phone] Referring Provider: Angelina Dela Cruz, [address] [facility], [address], [place], [address]. tel:[phone] Office/outpa tient Visit, [facility], [address], [place], [place], [address], [place] tel:[phone] SEC Jason SARMIENTO Professional Cataract evaluation (chief complaint) Combined forms of age-related cataract, bilateralTyp e 2 diabetes mellitus without complication sNexdtve age-related mclr degn, left eye, early dry stagePunctat e keratitis, left eyeHistory of endophthalmi tisExdtve age-rel mclr degn, right eye, with inact chrdl neovas 0-202 0 Feliciano Kahn. [address] [facility], [address], [place], [place], [address], [place]. tel:[phone] Referring Provider: Angelina Marroquin MD K, [address] [facility], [address], [place], [address]. tel:[phone] [facility], [address], [place], [place], [address], [place] tel:[phone] SEC Jason GUILLERMINA Professional No Information 0 Feliciano Kanh. [address] [facility], [facility] [address], [place], [place], [address], [place]. tel:[phone] [facility], [address], [place], [place], [address], [place] tel:[phone] SEC [place] GUILLERMINA Professional Blurry vision (chief complaint) Lesion of eyelidNuclea r sclerosis of both eyesMacular pigment epithelial detachment, rightType 2 diabetes mellitus without complication s 3-201 6 Feliciano Kahn. [address] [facility], [facility] [address], [place], [place], [address], [place]. tel:[phone] Referring Provider: Sharonda Aparicio OD, [facility] [address] [facility], [place], [address]. tel:[phone] Family History Family Member Type Diagnosis Age At Onset No Information Payers Payer name Insurance type Covered green party ID Authoriza tion(s) Medicare [place] GRECIA [id number] [employer] Mdcr Supp CI [id number] Social History Type Description Quantity Date Captured [...]
--- OUTSIDE RECORDS SUMMARY | 2025-03-20 14:31 | XMS_ITS | Clinical Summary ---
Author Organization [facility] james [facility] Address [address] [place] [address] Care Team Providers Care Gem Stone Cutter Name Role Phone Unavailable Primary Care Provider Unavailabl e Allergies Active Allergy Reactions Criticality Noted Date Comments Unruly Inhibitors Anaphylaxis,Other (S ee Comments),Angioedema High 10/16/2022 Angioedema Acetaminophen Other (See Comments) Low 10/16/2022 Tongue swelling Cephalexin Rash Low 03/20/2025 Codeine Other (See Comments) Low 10/16/2022 Sleepiness Hydrochlorothiazide Other (See Comments) High 2022 HYPONATREMIA Tramadol Nausea and Vomiting Low 10/16/2022 Triamterene Other (See Comments) Low 10/16/2022 HYPONATREMIA Medications amiodarone (CORDARONE) 100 mg Tablet Take 100 mg by mouth daily. 09/04/2024 5 Active atenoloL (TENORMIN) 25 mg tablet Take 25 mg by mouth daily. 08/25/2022 5 Active atorvastatin (LIPITOR) 40 mg tablet Take 40 mg by mouth daily at bedtime. 10/04/2022 5 Active losartan (COZAAR) 50 mg tablet Take 50 mg by mouth daily. 09/04/2024 5 Active rivaroxaban (XARELTO) 20 mg Tablet Take 20 mg by mouth. 10/04/2022 5 Active spironolactone (ALDACTONE) 50 mg tablet Take 50 mg by mouth daily. 09/25/2022 5 Active ferrous sulfate 325 mg (65 mg iron) tablet 325 MG ORALLY DAILY 02/02/2025 Active cholecalciferol, vitamin D3, 1,000 unit Take 2,000 Units by mouth daily. Active vit C/E/Zn/coppr/lut ein/zeaxan (EYE HEALTH AREDS-2 ORAL) Take by mouth. Active Encounters Date Type Department Care Team Description 03/20/2025 1:30 PM CDT Office Visit [facility] Oncology and Hematology [facility] [address] [place] [address] Hiram Correa MD Chronic anemia (Primary Dx) from Last 3 Months Family History Medical History Relation Name Comments Pancreatic Cancer Brother No Known Problems Child 1 No Known Problems Child 2 Lung Cancer Father Cancer - Other Mother Reproductive cancer Heart Disease Mother No Known Problems Sister Relation Name Status Comments Brother Child 1 Alive Child 2 Alive Father Mother Sister Social History Tobacco Use Types Packs/Day Years Used Date Smoking Tobacco: Former Cigarettes 0.5 65.9 0 09/14/1958 - 08/14/2024 Smokeless Tobacco: Never Tobacco Cessation:Counseling Given: Not Answered Alcohol Use Standard Drinks/Week Comments Never 0 (1 standard drink = 0.6 oz pur e alcohol) Comments Unknown Sex and Gender Information Value Date Recorded Sex Assigned at Not on file Legal Sex Female 3:42 PM CDT Gender Identity Not on file Sexual Orientation Not on file Last Filed Vital Signs Vital Sign Reading Time Taken Comments Blood Pressure 99/57 03/20/2025 1:33 PM CDT Pulse 70 03/20/2025 1:33 PM CDT Temperature 36.8 C (98.3 F) 03/20/2025 1:33 PM CDT Respiratory Rate 15 03/20/2025 1:33 PM CDT Oxygen Saturation 98% 03/20/2025 1:33 PM CDT Inhaled Oxygen Concentration - - Weight 57.3 kg (126 lb 6.4 oz) 03/20/2025 1:33 P M CDT Height 152.4 cm (5') 03/20/2025 1:33 PM CDT Body Mass Index 24.69 03/20/2025 1:33 PM CDT Plan of Treatment Upcoming Encounters Date Type Department Care Team (Late st Contact Info) Description 04/03/2025 4:35 PM CDT Telephone Check Up [facility] Oncology and Hematology [facility] [address] [place] [address] Hiram Correa MD [address] [facility] [address] [place] [address] Health Maintenance Due Date Last Done Comments Traditional Medicare (ACO) A nnual Wellness Visit 1966 ZOSTER VACCINE (1 of 2) 1997 OSTEOPOROSIS SCREENING 2012 DTAP/TDAP/TD VACCINES (2 - T d or Tdap) 03/26/2021 03/26/2011 PNEUMOCOCCAL VACCINE 50+ YEA RS (2 of 2 - PPSV23) 06/19/2021 06/19/2020 RSV VACCINE (60+ or ) (1 - 1-dose 75+ series) 2022 INFLUENZA VACCINE (#1) 2025 2, 07/16/2021, 06/21/2019, Additional history exists Insurance MEDICARE PART A AND B AETNA MEDICARE SUPP AESSI Advance Directives For more information, please contact: [phone] Documents on File Type Date Recorded Patient Director Payment Expl anation Advance Directive POA 03/20/2025 1:16 PM Ad lau Directive POA
--- OUTSIDE RECORDS SUMMARY | 2025-03-20 14:31 | XMS_ITS | Referral Summary ---
Author Organization [facility] [address] Address [address] [place] [address] Care Team Providers Care Director Supply Chain Name Role Phone Angélica Horton NP Primary Care Provider [phone] Encounters Date Type Department Care Team Description 12/28/2024 9:45 AM CDT Office Visit [facility] at [address] [place] [address] John Arshad MD Mesenteric artery [...] 3 Active vitamins A,C,E-zinc-mayela er (ICAPS) 14,320-226-200 jxlv-iw-cbab capsule Take by mouth Active cholecalciferol (VITAMIN D-3) 22849 unit tablet Take 2,000 Units by mouth [...] on file 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
--- OUTSIDE RECORDS SUMMARY | 2025-03-20 14:31 | XMS_ITS | Clinical Summary ---
Author Organization [facility] [address] [facility] [address] Address [address] [place] [address] Care Team Providers Care Boiler House Supervisor Name Role Phone Angélica Horton NP Primary Care Provider [phone] Allergies Active Allergy Reactions Criticality Noted Date [...] 3 Active vitamins A,C,E-zinc-mayela er (ICAPS) 14,320-226-200 wfkw-ep-lrus capsule Take by mouth Active cholecalciferol (VITAMIN D-3) 27782 unit tablet Take 2,000 Units by mouth [...] Description 12/28/2024 9:45 AM CDT Office Visit 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
--- OUTSIDE RECORDS SUMMARY | 2025-03-20 14:31 | XMS_ITS | Encounter Summary ---
Author Organization [facility] VIRI Mahajan [facility] Address [address] [place] [address] Care Team Providers Care Airport Representative Name Role Phone Unavailable Primary Care Provider Unavailabl e Encounter Details Date Type Department Care Team (Late st Contact Info) Description 03/20/2025 1:30 PM CDT [facility] Visit [facility] Oncology and Hematology - [address] [facility] [address] [place] [address] Hiram Correa MD [address] [facility] [address] [place] [address] Chronic anemia (Primary Dx) Social History Tobacco Use Types Packs/Day Years [...] on file Sexual Orientation Not on file documented as of this encounter Last Filed Vital Signs Vital Sign Reading [...] Mass Index 24.69 03/20/2025 1:33 PM CDT documented in this encounter Plan of Treatment Upcoming Encounters Date Type Department Care Team (Late st Contact Info) Description 04/03/2025 4:35 PM CDT Telephone Check Up [facility] Oncology and Hematology - [address] [facility] [address] [place] [address] Hiram Correa MD [address] [facility] [address] [place] [address] Scheduled Orders Name Type Priority Associated Diagnoses Orde r Schedule CBC WITH DIFFERENTIAL Lab Stat Chronic anemia Expected: 03/20/2025, Expires: 03/20/2026 COMPREHENSIVE METABOLIC PANEL Lab Stat Chronic anemia Expected: 03/20/2025, Expires: 03/20/2026 FERRITIN Lab Routine Chronic anemia Expected: 03/20/2025, Expires: 03/20/2026 IRON, TIBC, AND PERCENT SATURATION Lab Routine Chronic anemia Expected: 03/20/2025, Expires: 03/20/2026 LACTATE DEHYDROGENASE Lab Routine Chronic anemia Expected: 03/20/2025, Expires: 03/20/2026 METHYLMALONIC ACID Lab Routine Chronic anemia Expected: 03/20/2025, Expires: 03/20/2026 VITAMIN B12 AND FOLATE Lab Routine Chronic anemia Expected: 03/20/2025, Expires: 03/20/2026 TRANSFERRIN RECEPTOR TFR SOLUBLE Lab Routine Chronic anemia Expected: 03/20/2025, Expires: 03/20/2026 documented as of this encounter Visit Diagnoses Diagnosis Chronic anemia- Primary Anemia, unspecified documented in this encounter
--- OUTSIDE RECORDS SUMMARY | 2025-03-20 14:31 | XMS_ITS | Clinical Summary ---
Author Organization [facility] Address [address] [place] [address] Care Team Providers Care Respiratory Care Assistant Name Role Phone Unavailable Primary Care Provider [...] Td Vaccines ( 1 - Tdap) 1966 Pneumococcal Vaccine: 50+ Ye ars (1 of 1 - PCV) 1997 Zoster Vaccines (1 of 2) 1997 Annual Medicare Wellness Visit 2012 Dexa Scan (General) 2012 RSV Immunization or 60+ Years (1 - 1-dose 75+ series) 2022 COVID-19 Vaccine (2023-2 5 season) 2024 Meningococcal B Vaccine Aged Out No l onger eligible based on patient's age to complete this topic Meningococcal Vaccine Aged Out No noris era eligible based on patient's age to complete this topic RSV Immunizations Under 20 Months Aged Out No longer eligible based on patient's age to complete this topic Insurance MEDICARE [facility]
[2025-03-20 14:46] LABS: Hematocrit 34.1 % (37.0-47.0); Hemoglobin 10.6 g/dL (12.0-15.0); Immature Granulocyte Percent A 0.3 % (0-0.5); Lymphocytes Absolute Auto 2.10 K/mm3 (0.9-3.2); Mean Corpuscular HGB Conc 31.1 g/dl (32-36); Mean Corpuscular Hemoglobin 29.3 pg (26-34); Mean Corpuscular Volume 94.2 fl (80-100); Nucleated Red Blood Cells Absolute Auto 0.000 K/mm3 (0.0-0.012); Nucleated Red Blood Cells Perc 0.0 % (0.0-0.2); Platelet Count Result 276 k/mm3 (150-375); Red Blood Count 3.62 M/mm3 (4.2-5.4); White Blood Count 7.9 K/mm3 (4.5-10.0)
[2025-03-20 16:37] LABS: Alanine Aminotransferase 90 U/L (6-35); Albumin Level 3.9 g/dL (3.5-5.1); Alkaline Phosphatase 91 U/L (38-126); Anion Gap 10 mmol/L (4-12); Aspartate Amino Transferase 69 U/L (14-36); Bilirubin,Total 0.1 mg/dL (0.2-1.3); Blood Urea Nitrogen 34 mg/dL (7-17); Calcium 9.9 mg/dL (8.4-10.2); Carbon Dioxide 25 mmol/L (22-30); Chloride 105 mmol/L (98-107); Estimated Glomerular Filt Rate 49; Glucose 136 mg/dL (65-110); Potassium 4.1 mmol/L (3.4-5.0); Sodium 140 mmol/L (137-145); Total Protein 7.0 g/dL (6.3-8.2)
[2025-03-20 17:23] LABS: Iron 87 ug/dL (37-170)
[2025-03-20 17:35] LABS: Percent Iron Saturation 25 % (20-50)
[2025-03-20 17:45] LABS: Vitamin B12 691.0 pg/mL (239-931)
[2025-03-20 18:01] LABS: Ferritin 20.60 ng/mL (11.1-264)
[2025-03-22 16:53] LABS: Methylmalonic Acid. 185 nmol/L (69-390)
[2025-03-23 14:38] LABS: Soluble Transferrin Receptor. 1.16 mg/L (0.76-1.76)
== END 2025-03-20 14:29 | disposition home or self-care (01) ==
PROVIDERS: PCP Nurse Practitioner Family; Visit Provider Internal Medicine Hematology & Oncology
DX: D64.9 Anemia, unspecified (principal)
CPT/HCPCS: 36415; 80053; 82607; 82728; 82746; 83540; 83550; 83615; 83921; 84238; 85025

== ENCOUNTER 2025-03-31 12:27 | Outpatient (CLI) | payer MEDICARE, SELFPAY ==
--- NOTE | ~2025-03-31 | DEXA_ITS ---
Bone Density Report Name: FRANCES KILPATRICK Age: 79 Sex: Female Ethnicity: White Date of : 1945 Indication: postmenopausal; screening for osteoporosis; Referring Provider: Angélica Horton Study: Bone densitometry was performed. Exam Date: March 31, 2025 Accession number: [id number] Bone Density: Region BMD T-score Z-score Classification AP Spine(L1, L2, L3) 1.166 1.3 3.8 Normal Femoral Neck (Left) 0.518 -3.0 -0.8 Osteoporosis Total Hip (Left) 0.625 -2.6 -0.7 Osteoporosis Femoral Neck (Right) 0.462 -3.5 -1.3 Osteoporosis Total Hip (Right) 0.616 -2.7 -0.7 Osteoporosis Femoral Neck Mean 0.490 -3.2 -1.0 Osteoporosis Total Hip Mean 0.620 -2.6 -0.7 Osteoporosis World Health Organization criteria for BMD impression classify patients as: Normal (T-score at or above -1.0), Osteopenia (T-score between -1.0 and -2.5), or Osteoporosis (T-score at or below -2.5). 10-year Fracture Risk: FRAX not reported because: Some T-score for Spine Total or Hip Total or Femoral Neck at or below -2.5 Clinical Information Provided by Patient: Patient maximum height was 60 Menopause Age: 52 No regular weight bearing exercise Drinks caffeinated beverages Onset of menses at age 14 Number of children 2 Impression: The patient has osteoporosis, based on the Right Femoral Neck T-score. Discussion: INCREASED RISK OF FRACTURE. BONE DENSITY IS UNDESIRABLY LOW AT ONE OR MORE SKELETAL SITES, CONSISTENT WITH POSTMENOPAUSAL OSTEOPOROSIS. This patient's lowest T-score meets the World Health Organization's (WHO) criteria for osteoporosis at one or more sites (T-score -2.5 or below). In untreated patients, the risk of osteoporotic fracture increases approximately two-fold for each 1.0 SD decrease in T-score. Low bone density is not the only risk factor for fracture; also consider factors such as patient's age, frailty or poor health, risk of falling, risk of injury, previous osteoporotic fracture, family history of osteoporosis, cigarette smoking, low body weight, etc. Not everyone with low bone mineral density has osteoporosis; osteomalacia and other metabolic bone disorders should also be considered. Patients who have osteoporosis should be evaluated for specific diseases and conditions (secondary causes) that may cause or contribute to bone loss. The [place] Association of Clinical Endocrinologists (AACE) and National Osteoporosis Foundation (NOF) recommend pharmacologic intervention for all postmenopausal women whose T-score is in this range. The patient should follow a healthful lifestyle (good nutrition with adequate calcium and vitamin D, and appropriate weight-bearing exercise). Follow-Up: Consider a repeat BMD and Vertebral Fracture Assessment (VFA) exam in 2 years or sooner if medically necessary, to reassess this patient's status. Reported by: SUZY on 03/31/2025 1:25:00 PM. Reviewed, dictated and finalized at location A.
--- OUTSIDE RECORDS SUMMARY | 2025-03-31 12:29 | XMS_ITS | Continuity of Care Document ---
Author Organization [employer] [facility] Address [address] [place] [address] Phone Care Team Providers Care Edger Saw Operator Name Role Phone Femi Wiggins MD [...] times every day 0.5 MG - Active metformin 500 mg tablet take 2 tablet by oral route every day with morning and evening meals 1000 MG - Active amlodipine 10 mg tablet take 1 tablet by oral route every day 10 MG - Active spironolactone 50 mg tablet take 1 tablet by oral route every day 50 MG - Active atenolol 50 mg tablet take 1 tablet by o ral route every day 50 MG - Active Procedures Procedure Date No [...] Diagnoses Date Provider Providers Copied on Encounter [facility], [address], [place], [place], [address], [place] tel:[phone] SEC Jason SARMIENTO Professional Diabetic eye exam (chief complaint) Type 2 diabetes mellitus without complication sPresence of intraocular lensExdtve age-rel mclr degn, right eye, with inact chrdl neovasNexdtv e age-related mclr degn, left eye, early dry stage 3 Feliciano Kahn. [address] [facility], [facility] [place], [address], [place]. tel:[phone] Referring Provider: Angelina Marroquin MD K, [address] [facility], [address], [place], [address]. tel:[phone] Office/outpa tient Visit, Est [facility], [address] [employer] [address], [place], [place], [address], tel:[phone] SEC [place] Professional 6 month Complete (chief complaint) Presence of intraocular lensExdtve age-rel mclr degn, right eye, with inact chrdl neovasHistor y of endophthalmi tisOther secondary cataract, right eyeType 2 diabetes mellitus without complication sVitreous degeneration , bilateral Maurice- 2 Jerrica OD Denise. [facility] [employer], [address], [place], [place], [address], [place]. tel:[phone] Referring Provider: Angelina Dela Cruz, [address] [place] [address], [facility] [address], [place], [address]. tel:[phone] [employer] [facility] [employer] [facility], [facility] [employer] [address], [place], [place], [address], tel:[phone] SEC Jason SARMIENTO Professional 1 month s/p PCIOL (chief complaint) Post op visit Aug- 1 Jerrica OD Denise. [facility] [employer], [address], [place], [place], [address], [place]. tel:[phone] Referring Provider: Angelina Dela Cruz, [address] [facility], [facility] [address], [place], [address]. tel:[phone] [employer] [facility]7 [employer] [facility], [address] [employer] [address], [place], [place], [address], tel:[phone] SEC Jason SARMIENTO Professional 1 wk po PCIOL OS (08/14/21) (chief complaint) Post op visit Dec-0 1 Jerrica OD Denise. [facility] [employer], [address], [place], [place], [address], . tel:[phone] Referring Provider: Angelina Dela Cruz, [address] [facility], [address], [place], [address]. tel:[phone] [facility], [address], [place], [place], [address], [place] tel:[phone] SEC [place] Professional 1 day s/p PCIOL (chief complaint) Post op visit 0 1 Jerrica BRYANT Denise. [address] [place] [address] Drive, [address], [place], [place], [address], [place]. tel:[phone] Referring Provider: Angelina Dela Cruz, [address] [facility], [facility] [address], [place], [address]. tel:[phone] [facility], [address], [place], [place], [address], [place] tel:[phone] [facility] No Information 1 Feliciano Kahn. [address] [facility], [address] [place], [address], [place]. tel:[phone] Referring Provider: Angelina Dela Cruz, [address] [place] [address], [facility] [address], [place], [address]. tel:[phone] [facility], [address], [place], [place], [address], [place] [phone] SEC [place] GUILLERMINA Professional No Information 1 Feliciano Kahn. [address] [facility], [address], [place], [place], [address], [place]. tel:[phone] Referring Provider: Angelina Dela Cruz, [address] [facility], [address], [place], [address]. tel:[phone] Office/outpa tient Visit, Est [facility], [address], [place], [place], [address], [place] [phone] SEC [place] Professional 6 month Cataract check (chief complaint) Exdtve age-rel mclr degn, right eye, with inact chrdl neovasType 2 diabetes mellitus without complication sNexdtve age-related mclr degn, left eye, early dry stageCombine d forms of age-related cataract, left eye Oct-2 1 Feliciano Kahn. [address] [employer], [address] [place], [address], [place]. tel:[phone] Referring Provider: Angelina Dela Cruz, [address] [facility], [address], [place], [address]. tel:[phone] [facility], [address], [place], [place], [address], [place] tel:[phone] SEC Jason SARMIENTO Professional 6 month Cataract check (chief complaint) Nexdtve age-related mclr degn, left eye, early dry stageExdtve age-rel mclr degn, right eye, with inact chrdl neovasPseudo phakia of right eyeAge-relat ed nuclear cataract, left eyeOther secondary cataract, right eyeVitreous degeneration , bilateralTyp e 2 diabetes mellitus without complication s Apr-2 1 Feliciano Kahn. [address], [address], [place], [place], [address], [place]. tel:[phone] Referring Provider: Angelina Dela Cruz, [address] [facility], [address], [place], [address]. tel:[phone] [facility], [address], [place], [place], [address], [place] [phone] SEC [place] Professional No Information Apr-0 1 Feliciano Kahn. [address], [address], [place], [place], [address], [place]. tel:[phone] Office/outpa tient Visit, Est [facility] [employer] [facility], [address] [place] [address] [address], [place], [place], [address], tel:[phone] SEC Jason SARMIENTO Professional Complete exam (chief complaint) Type 2 diabetes mellitus without complication sPseudophaki a of right eyeNexdtve age-related mclr degn, left eye, early dry stageCombine d forms of age-related cataract, left eyeOther secondary cataract, right eyeExdtve age-rel mclr degn, right eye, with inact chrdl neovas Oct-2 7202 0 Feliciano Kahn. [address] [facility], [address], [place], [place], [address], [place]. tel:[phone] Referring Provider: Angelina Dela Cruz, [address] [place] [address], [facility] [address], [place], [address]. tel:[phone] [facility], [address] [place] [address] [address], [place], [place], [address], tel:[phone] SEC Jason SARMIENTO Professional Postop PCIOL OD (11/30/19) (chief complaint) Post op visit Dec-2 202 0 Bety OD Fermín. [address] [facility], 6th [address], [place], [address], [place]. tel:[phone] Referring Provider: Angelina Dela Cruz, [address] [place] [address], [address], [place], [address]. tel:[phone] [facility], [address] [place] [address] [address], [place], [place], [address], [place] tel:[phone] SEC [place] Shelbiyonis 1 week s/p PCIOL (chief complaint) Post op visit Nov-3 0-202 0 Kristy Funes. [address] [place] [address] Drive, [address], [place], [place], [address], [place]. tel:[phone] Referring Provider: Angelina Dela Cruz, [address] [facility], [facility] [address], [place], [address]. tel:[phone] [facility], [address], [place], [place], [address], [place] tel:[phone] SEC Jason SARMIENTO Professional 1 day s/p PCIOL (chief complaint) Post op visit 0 Bety MANNY Fermín. [address] [facility], 6th [address], [place], [address], [place]. tel:[phone] Referring Provider: Angelina Dela Cruz, [address] [facility], [address], [place], [address]. tel:[phone] [facility], [address], [place], [place], [address], [place] tel:[phone] [facility] No Information 0 Feliciano Kahn. [address] [facility], [facility] [place], [place], [address], [place]. tel:[phone] Referring Provider: Angelina Dela Cruz, [address] [facility], [address], [place], [address]. tel:[phone] [facility], [address], [place], [place], [address], [place] tel:[phone] SEC Jason SARMIENTO Professional No Information 0 Feliciano Kahn. [address] [facility], [facility] [place], [address], [place]. tel:[phone] Referring Provider: Angelina Dela Cruz, [address] [facility], [address], [place], [address]. tel:[phone] Office/outpa tient Visit, [facility], [address], [place], [place], [address], [place] tel:[phone] SEC Jason SARMIENTO Professional Cataract evaluation (chief complaint) Combined forms of age-related cataract, bilateralTyp e 2 diabetes mellitus without complication sNexdtve age-related mclr degn, left eye, early dry stagePunctat e keratitis, left eyeHistory of endophthalmi tisExdtve age-rel mclr degn, right eye, with inact chrdl neovas 0-202 0 Feliciano Kahn. [address] [facility], [address], [place], [place], [address], [place]. tel:[phone] Referring Provider: Angelina Marroquin MD K, [address] [facility], [address], [place], [address]. tel:[phone] [facility] [employer] [facility], [address], [place], [place], [address], [place] tel:[phone] SEC Jason GUILLERMINA Professional No Information 0 Feliciano Kahn. [address] [facility] [place], [facility] [address], [place], [place], [address], [place]. tel:[phone] [facility], [address], [place], [place], [address], [place] tel:[phone] SEC Jason GUILLERMINA Professional Blurry vision (chief complaint) Lesion of eyelidNuclea r sclerosis of both eyesMacular pigment epithelial detachment, rightType 2 diabetes mellitus without complication s 3-201 6 Feliciano Kahn. [address] [facility], [facility] [address], [place], [place], [address], [place]. tel:[phone] Referring Provider: Sharonda Aparicio OD, [facility] [address] [facility], [place], [address]. tel:[phone] Family History Family Member Type Diagnosis Age At Onset No Information Payers Payer name Insurance type Covered constitution party ID Authoriza tion(s) [place] GRECIA [id number] Aetna Mdcr Supp CI [id number] Social History Type Description Quantity Date Captured [...]
--- OUTSIDE RECORDS SUMMARY | 2025-03-31 12:29 | XMS_ITS | Clinical Summary ---
Author Organization [facility] Address [address] [place] [address] Care Team Providers Care Infection Control Practitioner Name Role Phone Unavailable Primary Care Provider [...] age to complete this topic Insurance MEDICARE [facility]
--- OUTSIDE RECORDS SUMMARY | 2025-03-31 12:29 | XMS_ITS | Clinical Summary ---
Author Organization [facility] james [facility] Address [address] [place] [address] Care Team Providers Care Line Supervisor Name Role Phone Unavailable Primary Care Provider [...] HEALTH AREDS-2 ORAL) Take by mouth. Active Active Problems No known active problems Encounters Date Type Department Care Team Description 03/28/2025 External Device Data STL ABSTRACTION Provider, Abstract 03/21/2025 External Device Data STL ABSTRACTION Provider, Abstract 03/21/2025 External Device Data STL ABSTRACTION Provider, Abstract 03/21/2025 External Device Data STL ABSTRACTION Provider, Abstract 03/20/2025 1:30 PM CDT Office Visit [facility] Oncology and Hematology - [address] [place] [address] Hiram Correa MD Chronic anemia [...] Upcoming Encounters Date Type Department Care Team ([facility] Contact Info) Description 04/03/2025 4:35 PM CDT Telephone Check Up [facility] Oncology and Hematology - [address] [facility] [address] [place] [address] Hiram Correa MD [address] [facility] [place] [address] Health Maintenance Due Date Last Done Comments DIABETES ANNUAL FOOT EXAM 1965 DIABETES ANNUAL RETINAL EXAM 1965 DIABETES MICROALBUMIN ANNUAL SCREEN 1965 LDL CHOLESTEROL ANNUAL 1965 Lung Cancer Screening 1997 ZOSTER VACCINE (1 of 2) 1997 OSTEOPOROSIS SCREENING 2012 PNEUMOCOCCAL VACCINE 50+ YEA RS (2 of 2 - PPSV23, PCV20, or PCV21) 08/14/2020 06/19/2020 DTAP/TDAP/TD VACCINES (2 - T d or Tdap) 03/26/2021 03/26/2011 RSV VACCINE (60+ or ) (1 - 1-dose 75+ series) 2022 DIABETES HBA1C Q 6 MONTHS 03/01/2025 08/31/2024 INFLUENZA VACCINE (#1) 2025 2, 07/16/2021, 06/21/2019, Additional history exists Insurance MEDICARE PART A AND B AETNA MEDICARE SUPP AESSI Advance Directives For more information, please contact: [phone] Documents on File Type Date Recorded Patient Structural Iron Erector Expl anation Advance Directive POA 03/20/2025 1:16 PM Ad lau Directive POA
--- OUTSIDE RECORDS SUMMARY | 2025-03-31 12:29 | XMS_ITS | Clinical Summary ---
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
--- OUTSIDE RECORDS SUMMARY | 2025-03-31 12:29 | XMS_ITS | Referral Summary ---
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
--- OUTSIDE RECORDS SUMMARY | 2025-03-31 12:29 | XMS_ITS | Clinical Summary ---
Author Organization [facility] [employer] Address [address] [place] [address] Care Team Providers Care Smasher Name Role Phone Provider, No Pcp Primary Care Provider Unavailab le Source Comments [facility] [employer],non-owned Affiliates and Associated Physician Practices is amultiple site organization consisting of ambulatory clinics and hospital sitesin [place], [place], [place] and [place]. This disclosure is being madepursuant to the Care Everywhere program and may not contain all information available regarding this patient. Last updated 18.[facility] [employer] Allergies Active Allergy Reactions Criticality Noted Date [...] Recorded Patient Health Questionnaire-2 Score 0 09/03/2024 [facility] of Occupat ional Health - Occupational Stress [...] any time in the past 12 m [facility], were you homeless or living in a usp (including now)? No 08/31/2024 Comments Unknown Sex and Gender Information Value Date Recorded Sex Assigned at Not on file Legal Sex Female 4:14 PM METAL FURNITURE REPAIRER Gender Identity Not on file Sexual Orientation Not on file Last Filed Vital Signs Vital Sign Reading Time Taken Comments Blood Pressure 141/70 09/03/2024 8:04 AM METAL FURNITURE REPAIRER Pulse 105 09/03/2024 8:04 AM METAL FURNITURE REPAIRER Temperature 36.6 C (97.9 F) 09/03/2024 8:04 AM METAL FURNITURE REPAIRER Respiratory Rate 18 09/03/2024 8:04 AM METAL FURNITURE REPAIRER Oxygen Saturation 100% 09/03/2024 8:04 AM METAL FURNITURE REPAIRER Inhaled Oxygen Concentration - - Weight 56.7 kg (125 lb) 09/01/2024 8:07 PM METAL FURNITURE REPAIRER Height 162.6 cm (5' 4) 09/01/2024 8:07 PM METAL FURNITURE REPAIRER Body Mass Index 21.46 09/01/2024 8:07 PM METAL FURNITURE REPAIRER Plan of Treatment Health Maintenance Due Date [...] PANEL (CALCIUM TOTAL) Routine 09/03/2024 2:10 AM METAL FURNITURE REPAIRER Nontraumatic hemorrhage of right cerebral hemisphere HEMOGLOBIN A1C Add on 08/31/2024 4:12 PM METAL FURNITURE REPAIRER Nontraumatic hemorrhage of right cerebral hemisphere from Last 3 Months or Most Recently Relevant to Health Maintenance Results * (ABNORMAL) BASIC METABOLIC PANEL (CALCIUM TOTAL) (09/03/2024 2:10 AM METAL FURNITURE REPAIRER) BUN 26 7 - 26 mg/dL 09/03/2024 3:29 AM [facility] Creatinine 0.87 0.56 - 0.96 mg/dL 09/03/2024 3:29 AM [facility] Sodium 139 136 - 145 mmol/L 09/03/2024 3:29 AM [facility] Potassium 4.6(H) 3.5 - 4.5 mmol/L 09/03/2024 3:29 AM [facility] Chloride 109(H) 98 - 107 mmol/L 09/03/2024 3:29 AM [facility] CO2 22 22 - 29 mmol/L 09/03/2024 3:29 AM [facility] Glucose 125(H) 70 - 99 mg/dL 09/03/2024 3:29 AM [facility] Calcium 8.9 8.4 - 10.2 mg/dL 09/03/2024 3:29 AM [facility] Anion Gap 8 6 - 16 09/03/2024 3:29 AM [facility] BUN/Creatinine Ratio 30(H) 7 - 23 09/03/2024 3:29 AM [facility] Osmolality Calculated 294 275 - 295 mOsm/kg 09/03/2024 3:29 AM [facility] eGFR by CKD-EPI 69(L) >=90 mL/min/1.7 3 m2 09/03/2024 3:29 AM [facility] Blood BLOOD SPECIMEN / Unknown Lab Venipuncture / Unknown 09/03/2024 2:10 AM METAL FURNITURE REPAIRER 09/03/2024 3:02 AM [facility] us Reina Ma MD LAB - CHEMISTRY ORDERABLES F inal Result [facility] [address] [place] [address], [facility] [phone] * (ABNORMAL) HEMOGLOBIN A1C (08/31/2024 4:12 PM [facility]) Hemoglobin A1c 6.0(H) <=5.6 % 09/01/2024 8:55 AM [facility] Estimated Average Glucose 126 mg/dL 09/01/2024 8:55 AM [facility] Comment: HbA1c Interpretation: Normal : < 5.7% Pre-diabetes: 5.7-6.4% Diabetes: Equal to or greater than 6.5% Test results diagnostic of diabetes should be repeated for confirmation. Treatment target values recommended by ADA and other clinical organizations should be used to evaluate metabolic control in patients. Reference: [place] Diabetes Association, Standards of Care in Diabetes -2020 In patients 70 years and older consider HbA1c target range of 7.0-7.5% (Reference: Davon Goldstein et al. JAMDA. 2012) The Sebia assay for the measurement of HbA1c is a National Glycohemoglobin Standardization Program (NGSP) certified method. Blood BLOOD SPECIMEN / Unknown Lab Venipuncture / Unknown 08/31/2024 4:12 PM METAL FURNITURE REPAIRER 08/31/2024 4:33 PM METAL FURNITURE REPAIRER Ayan Livingston MD LAB - CHEMISTRY ORDERABLES Fi nal Result [facility] [address] [place] [address], [facility] [phone] from Last 3 Months or Most Recently Relevant to Health Maintenance Insurance MEDICARE AETNA MEDICARE AETNA Advance Directives * Full Code (Latest Code Status on File) Date Activated Date Inactivated Comments 08/31/2024 11:06 AM 09/03/2024 3:17 PM Care Teams Smasher Relationship Specialty Start Date End Date Provider, No Pcp PCP - General 08/30/24
== END 2025-03-31 12:28 | disposition home or self-care (01) ==
LOC: CHSIMG 12:27
PROVIDERS: PCP Nurse Practitioner Family; Visit Provider Nurse Practitioner Family
DX: Z78.0 Asymptomatic menopausal state (principal); M81.0 Age-related osteoporosis without current pathological fracture
CPT/HCPCS: 77080

== ENCOUNTER 2025-05-03 10:22 | Outpatient (CLI) | payer MEDICARE, SELFPAY ==
--- OUTSIDE RECORDS SUMMARY | 2023-03-05 05:00 | XMS_ITS | Continuity of Care Document ---
Author Organization [facility] Address [address] [place] [address] Phone Care Team Providers Care Internship Name Role Phone Femi Wiggins MD Unavailable [...] Diagnoses Date Provider Providers Copied on Encounter [facility], [address], [place], [place], [address], [place] tel:[phone] SEC Jason SARMIENTO Professional Diabetic eye exam (chief complaint) Type 2 diabetes mellitus without complication sPresence of intraocular lensExdtve age-rel mclr degn, right eye, with inact chrdl neovasNexdtv e age-related mclr degn, left eye, early dry stage 3 Feliciano Kahn. [address], [facility] [place], [place], [address], [place]. tel:[phone] Referring Provider: Angelina Marroquin MD K, [address], [address], [place], [address]. tel:[phone] Office/outpa tient Visit, Est [facility], [address], [place], [place], [address], tel:[phone] SEC [place] Professional 6 month Complete (chief complaint) Presence of intraocular lensExdtve age-rel mclr degn, right eye, with inact chrdl neovasHistor y of endophthalmi tisOther secondary cataract, right eyeType 2 diabetes mellitus without complication sVitreous degeneration , bilateral Maurice- 2 Jerrica OD Denise. [facility] [employer], [address], [place], [place], [address], [place]. tel:[phone] Referring Provider: Angelina Dela Cruz, [address] [place] [address], [facility] [place] [address], [address]. tel:[phone] [facility], [facility] [address], [place], [place], [address], tel:[phone] SEC Jason SARMIENTO Professional 1 month s/p PCIOL (chief complaint) Post op visit Aug- 1 Jerrica OD Denise. [facility] [employer], [address], [place], [place], [address], [place]. tel:[phone] Referring Provider: Angelina Dela Cruz, [address] [facility], [facility] [place] [address], [place], [address]. tel:[phone] [facility], [address], [place], [place], [address], tel:[phone] SEC Jason SARMIENTO Professional 1 wk po PCIOL OS (08/14/21) (chief complaint) Post op visit Dec-0 1 Jerrica OD Denise. [facility] [employer], [address], [place], [place], [address], . tel:[phone] Referring Provider: Angelina Dela Cruz, [address] [facility] [address], [address], [place], [address]. tel:[phone] [facility], [address], [place], [place], [address], [place] tel:[phone] SEC [place] Professional 1 day s/p PCIOL (chief complaint) Post op visit 0 1 Jerrica BRYANT Denise. [address] [place] [address] Drive, [address], [place], [place], [address], [place]. tel:[phone] Referring Provider: Angelina Dela Cruz, [address] [facility], [facility] [place] [address], [place], [address]. tel:[phone] [facility], [address], [place], [place], [address], [place] tel:[phone] [facility] No Information 1 Feliciano Kahn. [address], [address] [place], [address], [place]. tel:[phone] Referring Provider: Angelina Dela Cruz, [address] [place] [address], [facility] [place] [address], [place], [address]. tel:[phone] [facility], [address], [place], [place], [address], [place] [phone] SEC [place] GUILLERMINA Professional No Information 1 Feliciano Kahn. [address], [address], [place], [place], [address], [place]. tel:[phone] Referring Provider: Angelina Dela Cruz, [address] [facility], [address], [place], [address]. tel:[phone] Office/outpa tient Visit, Est [facility], [address], [place], [place], [address], [place] [phone] SEC [place] Professional 6 month Cataract check (chief complaint) Exdtve age-rel mclr degn, right eye, with inact chrdl neovasType 2 diabetes mellitus without complication sNexdtve age-related mclr degn, left eye, early dry stageCombine d forms of age-related cataract, left eye Oct-2 1 Feliciano Kahn. [address] [employer], [address] [place], [place], [address], [place]. tel:[phone] Referring Provider: Angelina Dela Cruz, [address], [address], [place], [address]. tel:[phone] [facility], [address], [place], [place], [address], [place] tel:[phone] SEC Jason SARMIENTO Professional 6 month Cataract check (chief complaint) Nexdtve age-related mclr degn, left eye, early dry stageExdtve age-rel mclr degn, right eye, with inact chrdl neovasPseudo phakia of right eyeAge-relat ed nuclear cataract, left eyeOther secondary cataract, right eyeVitreous degeneration , bilateralTyp e 2 diabetes mellitus without complication s Apr-2 1 Feliciano Kahn. [address] [employer], [address], [place], [place], [address], [place]. tel:[phone] Referring Provider: Angelina Dela Cruz, [address] [facility], [address], [place], [address]. tel:[phone] [facility], [address], [place], [place], [address], [place] [phone] SEC [place] Professional No Information Apr-0 1 Feliciano Kahn. [address] [employer], [address], [place], [place], [address], [place]. tel:[phone] Office/outpa tient Visit, [facility], [address] [place] [address] [address], [place], [place], [address], tel:[phone] SEC Jason SARMIENTO Professional Complete exam (chief complaint) Type 2 diabetes mellitus without complication sPseudophaki a of right eyeNexdtve age-related mclr degn, left eye, early dry stageCombine d forms of age-related cataract, left eyeOther secondary cataract, right eyeExdtve age-rel mclr degn, right eye, with inact chrdl neovas Oct-2 7202 0 Feliciano Kahn. [address] [facility], [address], [place], [place], [address], [place]. tel:[phone] Referring Provider: Angelina Dela Cruz, [address] [place] [address], [facility] [place] [address], [place], [address]. tel:[phone] [facility], [address] [place] [address] [address], [place], [place], [address], tel:[phone] SEC Jason SARMIENTO Professional Postop PCIOL OD (11/30/19) (chief complaint) Post op visit Dec-2 202 0 Bety OD Fermín. [address] [facility], [address], [place], [address], [place]. tel:[phone] Referring Provider: Angelina Dela Cruz, [address] [place] [address], [address], [place], [address]. tel:[phone] [facility], [address] [place] [address] [address], [place], [place], [address], [place] tel:[phone] SEC [place] N Shelbiyonis 1 week s/p PCIOL (chief complaint) Post op visit Nov-3 0-202 0 Kristy Funes. [address] [place] [address] Drive, [address], [place], [place], [address], [place]. tel:[phone] Referring Provider: Angelina Dela Cruz, [address] [facility], [facility] [place] [address], [place], [address]. tel:[phone] [facility], [address], [place], [place], [address], [place] tel:[phone] SEC Jason SARMIENTO Professional 1 day s/p PCIOL (chief complaint) Post op visit 0 Bety MANNY Fermín. [address] [facility], [address]th [address], [place], [address], [place]. tel:[phone] Referring Provider: Angelina Dela Cruz, [address] [facility], [address], [place], [address]. tel:[phone] [facility], [address], [place], [place], [address], [place] tel:[phone] [facility] No Information 0 Feliciano Kahn. [address], [facility] [place], [address], [place]. tel:[phone] Referring Provider: Angelina Dela Cruz, [address] [facility], [address], [place], [address]. tel:[phone] [facility], [address], [place], [place], [address], [place] tel:[phone] SEC Jason SARMIENTO Professional No Information 0 Feliciano Kahn. [address] [facility], [facility] [place], [place], [address], [place]. tel:[phone] Referring Provider: Angelina Dela Cruz, [address] [facility], [address], [place], [address]. tel:[phone] Office/outpa tient Visit, [facility], [address], [place], [place], [address], [place] tel:[phone] SEC Jason SARMIENTO Professional Cataract evaluation (chief complaint) Combined forms of age-related cataract, bilateralTyp e 2 diabetes mellitus without complication sNexdtve age-related mclr degn, left eye, early dry stagePunctat e keratitis, left eyeHistory of endophthalmi tisExdtve age-rel mclr degn, right eye, with inact chrdl neovas 0-202 0 Feliciano Kahn. [address] [facility], [address], [place], [place], [address], [place]. tel:[phone] Referring Provider: Angelina Marroquin MD K, [address] [facility], [address], [place], [address]. tel:[phone] [facility], [address], [place], [place], [address], [place] tel:[phone] SEC [place] GUILLERMINA Professional No Information 0 Feliciaon Kahn. [address] [facility], [facility] [place] [address], [place], [place], [address], [place]. tel:[phone] [facility], [address], [place], [place], [address], [place] tel:[phone] SEC Jason GUILLERMINA Professional Blurry vision (chief complaint) Lesion of eyelidNuclea r sclerosis of both eyesMacular pigment epithelial detachment, rightType 2 diabetes mellitus without complication s 3-201 6 Feliciano Kahn. [address] [facility], [facility] [place] [address], [place], [place], [address], [place]. tel:[phone] Referring Provider: Sharonda Aparicio OD, [facility] [address] [facility], [place], [address]. tel:[phone] Family History Family Member Type Diagnosis Age At Onset No Information Payers Payer name Insurance type Covered republican ID Authoriza tion(s) Medicare [place] GRECIA [id number] Aetna Mdcr Supp CI [id number] Social History Type Description Quantity Date Captured [...]
[2025-05-03] MEDS: ZOLEDRONIC ACID 5 MG/100 ML 100 ML 400 MG IVPB (10:45)
--- OUTSIDE RECORDS SUMMARY | 2025-05-03 10:57 | XMS_ITS | Clinical Summary ---
Author Organization [facility] [employer] Address [address] [place] [address] Care Team Providers Care Realtime Court Reporter Name Role Phone Provider, No Pcp Primary Care Provider Unavailab le Source Comments [facility] [employer],non-owned Affiliates and Associated Physician Practices is amultiple site organization consisting of ambulatory clinics and hospital sitesin [place], [place], [place] and [place]. This disclosure is being madepursuant to the Care Everywhere program and may not contain all information available regarding this patient. Last updated 18.[facility] [employer] Allergies Active Allergy Reactions Criticality Noted Date [...] Recorded Patient Health Questionnaire-2 Score 0 09/03/2024 [facility] [place] of Occupat ional Health - Occupational Stress [...] the past [address] [facility], were you homeless or living in a usp (including now)? No 08/31/2024 Comments Unknown Sex and Gender Information Value Date Recorded Sex Assigned at Not on file Legal Sex Female 4:14 PM FIRE OBSERVER Gender Identity Not on file Sexual Orientation Not on file Last Filed Vital Signs Vital Sign Reading Time Taken Comments Blood Pressure 141/70 09/03/2024 8:04 AM FIRE OBSERVER Pulse 105 09/03/2024 8:04 AM FIRE OBSERVER Temperature 36.6 C (97.9 F) 09/03/2024 8:04 AM FIRE OBSERVER Respiratory Rate 18 09/03/2024 8:04 AM FIRE OBSERVER Oxygen Saturation 100% 09/03/2024 8:04 AM FIRE OBSERVER Inhaled Oxygen Concentration - - Weight 56.7 kg (125 lb) 09/01/2024 8:07 PM FIRE OBSERVER Height 162.6 cm (5' 4) 09/01/2024 8:07 PM FIRE OBSERVER Body Mass Index 21.46 09/01/2024 8:07 PM FIRE OBSERVER Plan of Treatment Health Maintenance Due Date [...] PANEL (CALCIUM TOTAL) Routine 09/03/2024 2:10 AM FIRE OBSERVER Nontraumatic hemorrhage of right cerebral hemisphere HEMOGLOBIN A1C Add on 08/31/2024 4:12 PM FIRE OBSERVER Nontraumatic hemorrhage of right cerebral hemisphere from Last 3 Months or Most Recently Relevant to Health Maintenance Results * (ABNORMAL) BASIC METABOLIC PANEL (CALCIUM TOTAL) (09/03/2024 2:10 AM FIRE OBSERVER) BUN 26 7 - 26 mg/dL 09/03/2024 3:29 AM [facility] Creatinine 0.87 0.56 - 0.96 mg/dL 09/03/2024 3:29 AM [facility] Sodium 139 136 - 145 mmol/L 09/03/2024 3:29 AM [facility] Potassium 4.6(H) 3.5 - 4.5 mmol/L 09/03/2024 3:29 AM [facility] Chloride 109(H) 98 - 107 mmol/L 09/03/2024 3:29 AM [facility] CO2 22 22 - 29 mmol/L 09/03/2024 3:29 AM [facility] Glucose 125(H) 70 - 99 mg/dL 09/03/2024 3:29 AM [facility] Calcium 8.9 8.4 - 10.2 mg/dL 09/03/2024 3:29 AM [facility] Anion Gap 8 6 - 16 09/03/2024 3:29 AM [facility] BUN/Creatinine Ratio 30(H) 7 - 23 09/03/2024 3:29 AM [facility] Osmolality Calculated 294 275 - 295 mOsm/kg 09/03/2024 3:29 AM [facility] eGFR by CKD-EPI 69(L) >=90 mL/min/1.7 3 m2 09/03/2024 3:29 AM [facility] Blood BLOOD SPECIMEN / Unknown Lab Venipuncture / Unknown 09/03/2024 2:10 AM FIRE OBSERVER 09/03/2024 3:02 AM [facility] us Reina Ma MD LAB - CHEMISTRY ORDERABLES F inal Result [facility] [address] [place] [address], [place] [phone] * (ABNORMAL) HEMOGLOBIN A1C (08/31/2024 4:12 PM [facility]) Hemoglobin A1c 6.0(H) <=5.6 % 09/01/2024 8:55 AM [facility] Estimated Average Glucose 126 mg/dL 09/01/2024 8:55 AM [facility] Comment: HbA1c Interpretation: Normal : < 5.7% Pre-diabetes: 5.7-6.4% Diabetes: Equal to or greater than 6.5% Test results diagnostic of diabetes should be repeated for confirmation. Treatment target values recommended by ADA and other clinical organizations should be used to evaluate metabolic control in patients. Reference: [place] Diabetes Association, Standards of Care in Diabetes -2020 In patients 70 years and older consider HbA1c target range of 7.0-7.5% (Reference: Davon Goldstein et al. JAMDA. 2012) The Sebia assay for the measurement of HbA1c is a National Glycohemoglobin Standardization Program (NGSP) certified method. Blood BLOOD SPECIMEN / Unknown Lab Venipuncture / Unknown 08/31/2024 4:12 PM FIRE OBSERVER 08/31/2024 4:33 PM FIRE OBSERVER Ayan Livingston MD LAB - CHEMISTRY ORDERABLES Fi nal Result [facility] [address] [place] [address], [place] [phone] from Last 3 Months or Most Recently Relevant to Health Maintenance Insurance MEDICARE AETNA MEDICARE AETNA Advance Directives * Full Code (Latest Code Status on File) Date Activated Date Inactivated Comments 08/31/2024 11:06 AM 09/03/2024 3:17 PM Care Teams Realtime Court Reporter Relationship Specialty Start Date End Date Provider, No Pcp PCP - General 08/30/24
--- OUTSIDE RECORDS SUMMARY | 2025-05-03 10:57 | XMS_ITS | Clinical Summary ---
Author Organization [facility] james [facility] Address [address] [place] [address] Care Team Providers Care Cigar Wrapper Name Role Phone Unavailable Primary Care Provider [...] Encounters Date Type Department Care Team Description 05/02/2025 External Device Data STL ABSTRACTION Provider, Abstract 04/25/2025 External Device Data STL ABSTRACTION Provider, Abstract 04/03/2025 4:35 PM CDT Telephone Check Up [facility] Oncology [facility] [address] [place] [address] Hiram Correa MD Chronic anemia (Primary Dx) 03/29/2025 External Device Data ST[facility] ABSTRACTION Provider, Abstract 03/28/2025 External Device Data [facility] ABSTRACTION Provider, Abstract 03/21/2025 External Device Data [facility] ABSTRACTION Provider, Abstract 03/21/2025 External Device Data STL ABSTRACTION Provider, Abstract 03/21/2025 External Device Data STL ABSTRACTION Provider, Abstract 03/20/2025 1:30 PM CDT Office Visit [facility] Oncology [facility] [address] [place] [address] Hiram Correa MD Chronic anemia (Primary Dx) [...] Care Team (Late st Contact Info) Description 08/04/2025 12:00 PM VACUUM DRIER OPERATOR Office Visit [facility] Oncology and Hematology - [place] [address] [facility] [address] [place] [address] Hiram Correa MD [address] [facility] [address] [facility] [address] [place] [address] Health Maintenance Due Date Last [...] Advance Directives For more information, please contact: [phone] Documents on File Type Date Recorded Patient Autobody Technician Expl anation Advance Directive POA 03/20/2025 1:16 PM Ad lau Directive POA
--- OUTSIDE RECORDS SUMMARY | 2025-05-03 10:57 | XMS_ITS | Encounter Summary ---
Author Organization [facility] Address [address] [place] [address] Care Team Providers Care Solar Panel Technician Name Role Phone Unavailable Primary Care Provider Unavailabl e Encounter Details Date Type Department Care Team (Late st Contact Info) Description 05/02/2025 External Device Data [facility] ABSTRACTION Provider, Abstract NO ADDRESS ON FILE Social History Tobacco Use Types Packs/Day Years Used Date Smoking Tobacco: Former Cigarettes 0.5 65.9 0 09/14/1958 - 08/14/2024 Smokeless Tobacco: Never Alcohol Use Standard Drinks/Week Comments Never 0 (1 standard drink = 0.6 oz pur e alcohol) Comments Unknown Sex and Gender Information Value Date Recorded Sex Assigned at Not on file Legal Sex Female 3:42 PM CDT Gender Identity Not on file Sexual Orientation Not on file documented as of this encounter Plan of Treatment Upcoming Encounters Date Type Department Care Team (Late st Contact Info) Description 08/04/2025 12:00 PM FOOD SERVICE MANAGER Office Visit [facility] Oncology and Hematology - [place] [address] [facility] [address] [place] [address] Hiram Correa MD [address] [facility] [address] [place] [address] documented as of this encounter Visit Diagnoses Not on filedocumented in this encounter
--- OUTSIDE RECORDS SUMMARY | 2025-05-03 10:57 | XMS_ITS | Clinical Summary ---
Author Organization [facility] [address] [facility] [address] Address [address] [place] [address] Care Team Providers Care Ed Educational Aide Name Role Phone Angélica Horton NP Primary Care Provider [phone] [phone] Allergies Active Allergy Reactions Criticality Noted Date [...] 3 Active vitamins A,C,E-zinc-mayela er (ICAPS) 14,320-226-200 qtza-ox-xkhx capsule Take by mouth Active cholecalciferol (VITAMIN D-3) 78686 unit tablet Take 2,000 Units by mouth [...] Carotid artery disease Type 2 diabetes mellitus Infectious viral hepatitis Osteoarthritis Stroke (HCC) Family [...] on file Legal Sex Female 3:59 PM EGG BUYER Gender Identity Not on file Sexual Orientation [...] Pneumococcal vaccine 65+ (2 of 2 - PPSV23, PCV20, or PCV21) 08/14/2020 06/19/2020 DTaP/Tdap/Td Vaccine (2 - Td or Tdap) 03/26/2021 03/26/2011 Covid-19 Vaccine (5 - 2023-2 5 season) 2024 07/17/2022, 07/16/2021, 12/13/2020, Additional history exists Influenza Vaccine (#1) 2025 , 07/16/2021, 06/21/2019, Additional history exists Insurance MEDICARE AETNA MEDICARE AETNA SENIOR SUPPLEMENT Care Teams Ed Educational Aide Relationship Specialty Start Date End Date Angélica Horton NP [address] [place] [address] PCP - General Nurse Practitioner 10/07/22
[2025-05-03 11:01] VITALS: BP 121/69; PULSE 68; RESP 16; TEMP 36.6; O2SAT 96; BMI 20.9
[2025-05-03 11:22] VITALS: BP 106/66; PULSE 78; RESP 14; O2SAT 97
--- NOTE | 2025-05-03 11:24 | PC.NURSE ---
Tolerated Reclast infusion well. SEE MAR/patient care notes.
== END 2025-05-03 10:23 | disposition home or self-care (01) ==
PROVIDERS: PCP Nurse Practitioner Family; Visit Provider Family Medicine
DX: M81.0 Age-related osteoporosis without current pathological fracture (principal)
CPT/HCPCS: 96374; J3489

== ENCOUNTER 2025-06-09 12:27 | Outpatient (CLI) | payer MEDICARE, SELFPAY ==
--- OUTSIDE RECORDS SUMMARY | 2023-03-05 05:00 | XMS_ITS | Continuity of Care Document ---
Author Organization [facility] Address [address] [place] [address] Phone Care Team Providers Care Computer Console Operator Name Role Phone Femi Wiggins MD Unavailable [...] Date Provider Providers Copied on Encounter [facility], [address], [place], [place], [address], [place] tel:[phone] SEC Jason SARMIENTO Professional Diabetic eye exam (chief complaint) Type 2 diabetes mellitus without complication sPresence of intraocular lensExdtve age-rel mclr degn, right eye, with inact chrdl neovasNexdtv e age-related mclr degn, left eye, early dry stage 3 Feliciano Kahn. [address] [facility], [facility] [place], [address], [place]. tel:[phone] Referring Provider: Angelina Marroquin MD K, [address] [facility], [address], [place], [address]. tel:[phone] Office/outpa tient Visit, Est [facility], [address] [facility] [address], [place], [place], [address], tel:[phone] SEC Jason [place] Professional 6 month Complete (chief complaint) Presence of intraocular lensExdtve age-rel mclr degn, right eye, with inact chrdl neovasHistor y of endophthalmi tisOther secondary cataract, right eyeType 2 diabetes mellitus without complication sVitreous degeneration , bilateral Maurice- 2 Jerrica OD Denise. [facility] [employer], [address], [place], [place], [address], [place]. tel:[phone] Referring Provider: Angelina Dela Cruz, [address] [place] [address], [facility] [address], [place], [address]. tel:[phone] [facility], [facility] [address], [place], [place], [address], tel:[phone] SEC Jason SARMIENTO Professional 1 month s/p PCIOL (chief complaint) Post op visit Aug- 1 Jerrica OD Denise. [facility] [employer], [address], [place], [place], [address], [place]. tel:[phone] Referring Provider: Angelina Dela Cruz, [address] [facility], [facility] 700, [place], [address]. tel:[phone] [facility], [address] [facility] [address], [place], [place], [address], tel:[phone] SEC Jason SARMIENTO Professional 1 wk po PCIOL OS (08/14/21) (chief complaint) Post op visit Dec-0 1 Jerrica OD Denise. [facility] [employer], [address], [place], [place], [address], . tel:[phone] Referring Provider: Angelina Dela Cruz, [address] [facility] [place], [address], [place], [address]. tel:[phone] [facility], [address], [place], [place], [address], [place] tel:[phone] SEC [place] Professional 1 day s/p PCIOL (chief complaint) Post op visit 0 1 Jerrica BRYANT Denise. [address] [place] [address] Drive, [address], [place], [place], [address], [place]. tel:[phone] Referring Provider: Angelina Dela Cruz, [address] [facility], [facility] 700, [place], [address]. tel:[phone] [facility], [address], [place], [place], [address], [place] tel:[phone] [facility] No Information 1 Feliciano Kahn. [address] [facility], [place], [address], [place]. tel:[phone] Referring Provider: Angelina Dela Cruz, [address] [place] [address], [facility] 700, [place], [address]. tel:[phone] [facility], [address], [place], [place], [address], [place] [phone] SEC [place] GUILLERMINA Professional No Information 1 Feliciano Kahn. [address] [facility], [address], [place], [place], [address], [place]. tel:[phone] Referring Provider: Angelina Dela Cruz, [address] [facility], [address], [place], [address]. tel:[phone] Office/outpa tient Visit, Est [facility], [address], [place], [place], [address], [place] [phone] SEC [place] Professional 6 month Cataract check (chief complaint) Exdtve age-rel mclr degn, right eye, with inact chrdl neovasType 2 diabetes mellitus without complication sNexdtve age-related mclr degn, left eye, early dry stageCombine d forms of age-related cataract, left eye Oct-2 1 Feliciano Kahn. [address] [employer], [place], [place], [address], [place]. tel:[phone] Referring Provider: Angelina Dela Cruz, [address] [facility], [address], [place], [address]. tel:[phone] [facility], [address], [place], [place], [address], [place] tel:[phone] SEC Jason SARMIENTO Professional 6 month Cataract check (chief complaint) Nexdtve age-related mclr degn, left eye, early dry stageExdtve age-rel mclr degn, right eye, with inact chrdl neovasPseudo phakia of right eyeAge-relat ed nuclear cataract, left eyeOther secondary cataract, right eyeVitreous degeneration , bilateralTyp e 2 diabetes mellitus without complication s Apr-2 1 Feliciano Kahn. [address] [employer], [address], [place], [place], [address], [place]. tel:[phone] Referring Provider: Angelina Dela Cruz, [address] [facility], [address], [place], [address]. tel:[phone] [facility], [address], [place], [place], [address], [place] [phone] SEC Jason [place] Professional No Information Apr-0 1 Feliciano Kahn. [address] [employer], [address], [place], [place], [address], [place]. tel:[phone] Office/outpa tient Visit, Est [facility], [address] [place] [address] [address], [place], [place], [address], tel:[phone] SEC Jason SARMIENTO Professional Complete exam (chief complaint) Type 2 diabetes mellitus without complication sPseudophaki a of right eyeNexdtve age-related mclr degn, left eye, early dry stageCombine d forms of age-related cataract, left eyeOther secondary cataract, right eyeExdtve age-rel mclr degn, right eye, with inact chrdl neovas Oct-2 7202 0 Feliciano Kahn. [address] [facility], [address], [place], [place], [address], [place]. tel:[phone] Referring Provider: Angelina Dela Cruz, [address] [place] [address], [facility] 700, [place], [address]. tel:[phone] [facility], [address] [place] [address] [address], [place], [place], [address], tel:[phone] SEC Jason SARMIENTO Professional Postop PCIOL OD (11/30/19) (chief complaint) Post op visit Dec-2 202 0 Bety OD Fermín. [address] [facility], 6th Floor, [place], [address], [place]. tel:[phone] Referring Provider: Angelina Dela Cruz, [address] [place] [address], [address], [place], [address]. tel:[phone] [facility], [address] [place] [address] [address], [place], [place], [address], [place] tel:[phone] SEC [place] N Shelbiyonis 1 week s/p PCIOL (chief complaint) Post op visit Nov-3 0-202 0 Kristy Funes. [address] [place] [address] Drive, [address], [place], [place], [address], [place]. tel:[phone] Referring Provider: Angelina Dela Cruz, [address] [facility], [facility] 700, [place], [address]. tel:[phone] [facility], [address] [place], [place], [place], [address], [place] tel:[phone] SEC Jason SARMIENTO Professional 1 day s/p PCIOL (chief complaint) Post op visit 0 Bety MANNY Fermín. [address] [facility], 6th Floor, [place], [address], [place]. tel:[phone] Referring Provider: Angelina Dela Cruz, [address] [facility], [address], [place], [address]. tel:[phone] [facility], [address] [place], [place], [place], [address], [place] tel:[phone] [facility] No Information 0 Feliciano Kahn. [address] [facility], [facility] [place], [address], [place]. tel:[phone] Referring Provider: Angelina Dela Cruz, [address] [facility], [address], [place], [address]. tel:[phone] [facility], [address], [place], [place], [address], [place] tel:[phone] SEC Jason SARMIENTO Professional No Information 0 Feliciano Kahn. [address] [facility], [facility] [place], [place], [address], [place]. tel:[phone] Referring Provider: Angelina Dela Cruz, [address] [facility], [address], [place], [address]. tel:[phone] Office/outpa tient Visit, [facility], [address], [place], [place], [address], [place] tel:[phone] SEC Jason SARMIENTO Professional Cataract evaluation (chief complaint) Combined forms of age-related cataract, bilateralTyp e 2 diabetes mellitus without complication sNexdtve age-related mclr degn, left eye, early dry stagePunctat e keratitis, left eyeHistory of endophthalmi tisExdtve age-rel mclr degn, right eye, with inact chrdl neovas 0-202 0 Feliciano Kahn. [address] [facility], [address], [place], [place], [address], [place]. tel:[phone] Referring Provider: Angelina Marroquin MD K, [address] [facility], [address], [place], [address]. tel:[phone] [facility], [address], [place], [place], [address], [place] tel:[phone] SEC Jason GUILLERMINA Professional No Information 0 Feliciano Kahn. [address] [facility], [facility] A, [place], [place], [address], [place]. tel:[phone] [facility], [address] [place], [place], [place], [address], [place] tel:[phone] SEC [place] GUILLERMINA Professional Blurry vision (chief complaint) Lesion of eyelidNuclea r sclerosis of both eyesMacular pigment epithelial detachment, rightType 2 diabetes mellitus without complication s 3-201 6 Feliciano Kahn. [address] [facility], [facility] [address], [place], [place], [address], [place]. tel:[phone] Referring Provider: Sharonda Aparicio OD, [facility] [address] [facility], [place], [address]. tel:[phone] Family History Family Member Type Diagnosis Age At Onset No Information Payers Payer name Insurance type Covered democrat ID Authoriza tion(s) Medicare DE GRECIA [id number] Aetna Mdcr Supp CI [id number] Social History Type Description Quantity Date Captured [...]
--- NOTE | ~2025-06-09 | CT_ITS ---
EXAMINATION: CT brain wo con DATE: 06/09/2025 14:53 INDICATION: Somnolence TECHNIQUE: Computed tomography (CT) of the head was performed without intravenous contrast. The dose-length product was 605.33 mGy-cm. COMPARISON: CT dated 08/31/2024 FINDINGS: Generalized atrophy. Chronic left thalamic infarction. Focal calcification right frontal lobe is unchanged, likely related to prior ischemia or trauma. There are scattered severe periventricular and subcortical white matter changes, most likely related to small vessel ischemic disease (microa ngiopathy). There is mucosal thickening of the left sphenoid sinus. Mastoids are pneumatized. No acute infarction, hemorrhage, mass or mass effect. There is intracranial atherosclerosis. No ventriculomegaly or midline shift. Midline sagittal images demonstrate a normal corpus callosum and craniovertebral junction. No abnormalities of the sella turcica. IMPRESSION: 1. No acute intracranial abnormality. Reviewed, dictated and finalized at location O.
--- NOTE | ~2025-06-09 | XR_ITS ---
EXAMINATION: XR chest 2V, 06/09/2025 14:40 CDT HISTORY: Z86.73 - Personal history of transient ischemic attack (T... COMPARISON: No comparisons available. Technique: 2 views obtained. Findings: The lungs are clear, no effusion. No pneumothorax. Heart is normal size. Mediastinal and hilar contours are within normal limits. Bony thorax no acute abnormality. Impression: No acute cardiopulmonary abnormality. Reviewed, dictated and finalized at location P. Impression: No acute cardiopulmonary abnormality.
--- OUTSIDE RECORDS SUMMARY | 2025-06-09 12:32 | XMS_ITS | Clinical Summary ---
Author Organization [facility] Address [address] [place] [address] Care Team Providers Care Primary Montessori Teacher Name Role Phone Unavailable Primary Care Provider [...] Encounters Date Type Department Care Team Description 05/16/2025 External Device Data STL ABSTRACTION Provider, Abstract 05/02/2025 External Device Data STL ABSTRACTION Provider, Abstract 04/25/2025 External Device Data STL ABSTRACTION Provider, Abstract 04/03/2025 4:35 PM CDT Telephone Check Up [facility] Oncology and Hematology [facility] [address] [place] [address] Hiram Correa MD Chronic anemia (Primary Dx) 03/29/2025 External Device Data STL ABSTRACTION Provider, Abstract 03/28/2025 External Device Data STL ABSTRACTION Provider, Abstract 03/21/2025 External Device Data STL ABSTRACTION Provider, Abstract 03/21/2025 External Device Data STL ABSTRACTION Provider, Abstract 03/21/2025 External Device Data STL ABSTRACTION Provider, Abstract 03/20/2025 1:30 PM CDT Office Visit [facility] Oncology and [facility] [address] [place] [address] Hiram Correa MD Chronic anemia (Primary Dx) [...] st Contact Info) Description 08/04/2025 12:00 PM FRONT CLERK Office Visit [facility] Oncology and Hematology - [place] [address] [facility] [address] [place] [address] Hiram Correa MD [address] [facility] [address] [place] [address] Health Maintenance Due Date Last [...] Advance Directives For more information, please contact: [phone] Documents on File Type Date Recorded Patient Respiratory Equipment Assistant Expl anation Advance Directive POA 03/20/2025 1:16 PM Ad lau Directive POA
--- OUTSIDE RECORDS SUMMARY | 2025-06-09 12:32 | XMS_ITS | Clinical Summary ---
Author Organization [facility] [place] [address] [facility] [address] Address [address] [place] [address] Care Team Providers Care Supervisor Dog License Officer Name Role Phone Angélica Horton NP Primary Care Provider [phone] [phone] Allergies Active Allergy Reactions Criticality Noted Date [...] 3 Active vitamins A,C,E-zinc-mayela er (ICAPS) 14,320-226-200 xouu-ds-kgzm capsule Take by mouth Active cholecalciferol (VITAMIN D-3) 22689 unit tablet Take 2,000 Units by mouth [...] History Date Comments Chronic obstructive pulmonary disease COPD Hypertension Hypertension Abnormal ECG Carotid artery [...] on file Legal Sex Female 3:59 PM SPINNING 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 Gender Identity Not on file Sexual Orientation [...] Td or Tdap) 03/26/2021 03/26/2011 Covid-19 Vaccine (2024-2 6 season) 2025 07/17/2022, 07/16/2021, 12/13/2020, Additional history exists Influenza Vaccine (#1) 2025 , 07/16/2021, 06/21/2019, Additional history exists Insurance MEDICARE AETNA MEDICARE Member Subscriber Plan / Payer (Ef fective 2012-Present) Name:BalderramaKelly Member ID:[id number] Relation to Subscriber:Self Name:BalderramaLorainee Jaime Subscriber ID:[id number] Payer ID:[id number] Group ID:Not on file Type:MEDICARE TRADITIONAL Address: [address] [place] [id number] AETNA SENIOR SUPPLEMENT Care Teams Supervisor Dog License Officer Relationship Specialty Start Date End Date Angélica Horton NP [address] [place] [address] PCP - General Nurse Practitioner 10/07/22
--- OUTSIDE RECORDS SUMMARY | 2025-06-09 12:32 | XMS_ITS | Clinical Summary ---
Author Organization [facility] Address [address] [place] [address] Care Team Providers Care Contract Assistant Name Role Phone Angélica Prieto CORE MACHINE TENDER Primary Care Provider [phone] Encounters Date Type Department Care Team Description 05/09/2025 10:05 AM CDT - 05/09/2025 11:59 PM CDT Hospital Encounter [facility] [address] [place] [address] Angélica Prieto, CORE MACHINE TENDERViv Gibbs, DESIGN TEACHER Discharge Disposition: Home or Self Care (Routine Discharge) 05/09/2025 Travel from Last 3 Months Social History Tobacco Use Types Packs/Day Years Used Date Smoking Tobacco: Never Assessed Comments Unknown Sex and Gender Information Value Date Recorded Sex Assigned at Female 05/09/2025 9:53 AM CDT Legal Sex Female 11:51 AM CDT Gender Identity Not on file Sexual Orientation Not on file Plan of Treatment Health Maintenance Due Date Last Done Comments Hepatitis C 1965 Zoster Vaccines (1 of 2) 1997 Annual Medicare Wellness Visit 2012 Dexa Scan (General) 2012 DTaP, Tdap and Td Vaccines (2 - Td or Tdap) 03/26/2021 03/26/2011 RSV Immunization or 60+ Years (1 - 1-dose 75+ series) 2022 COVID-19 Vaccine ( season) 2025 06/07/2024, 06/12/2023, 07/17/2022, Additional history exists Pneumococcal Vaccine: 50+ Years Completed 06/19/2020, 05/05/2019, 12/19/2008 Meningococcal B Vaccine Aged Out No l onger eligible based on patient's age to complete this topic Meningococcal Vaccine Aged Out No noris era eligible based on patient's age to complete this topic RSV Immunizations Under 20 Months Aged Out No longer eligible based on patient's age to complete this topic Procedures Procedure Name Priority Date/Time Associated Diagnosis Comments XR SPEECH SWALLOW SFL ONLY Routine 05/09/2025 10:49 AM CDT Cerebral infarction (CMS/HCC HHS/HCC) Aphasia Dysphagia from Last 3 Months Results * XR SPEECH SWALLOW SFL ONLY (05/09/2025 10:49 AM CDT) Anatomical Region Laterality Modality NA Radiographic Tatum ging, Radiographic Imaging 05/09/2025 12:4 2 PM CDT Impressions 05/09/2025 12:44 PM CDT IMPRESSION: 1. Please see speech pathology report for complete discussion. Ordered By: ANGÉLICA PRIETO Interpreted By: Jakob Orozco MD, 05/09/2025 12:42 PM Narrative 05/09/2025 12:44 PM CDT [address] [place] [address] EXAM: Video Swallow DATE: 05/09/2025 10:22 AM HISTORY: Cerebral infarction, unspecified (CMS/HCC HHS/HCC), Aphasia, Dysphagia, unspecified. dysphagia, aphasia COMPARISON: None. TECHNIQUE: Modified barium swallowing study/speech esophagram was obtained with the speech pathologist in attendance and videotape record maintained. Total fluoroscopic time utilized was 3.3 minutes. A total of 13 thumbnails containing fluoroscopic digital cine Reference air kerma: 16.8 mGy FINDINGS: The patient was challenged with multiple consistencies. Penetration with thins with large bolus, which improved with smaller bolus. Carotid calcifications. Procedure Note Jakob Orozco MD - 05/09/[address] [place] [address] EXAM: Video Swallow DATE: 05/09/2025 10:22 AM HISTORY: Cerebral infarction, unspecified (CMS/HCC HHS/HCC), Aphasia,Dysphagia, unspecified. dysphagia, aphasia COMPARISON: None. TECHNIQUE: Modified barium swallowing study/speech esophagram was obtainedwith the speech pathologist in attendance and videotape record maintained. Total fluoroscopic time utilized was 3.3 minutes. A total of 13 thumbnailscontaining fluoroscopic digital cine Reference air kerma: 16.8 mGy FINDINGS: The patient was challenged with multiple consistencies. Penetration withthins with large bolus, which improved with smaller bolus. Carotid calcifications. IMPRESSION: 1. Please see speech pathology report for complete discussion. Ordered By: ANGÉLICA PRIETO Interpreted By: Jakob Orozco MD, 05/09/2025 12:42 PM Angélica Prieto CORE MACHINE TENDER FLUOROSCOPY Final Res ult from Last 3 Months Insurance MEDICARE MEDICARE AETNA Care Teams Contract Assistant Relationship Specialty Start Date End Date Angélica Prieto, CHRISSY [address] [place] [address] PCP - General NURSE PRACTITIONER 05/05/25
--- OUTSIDE RECORDS SUMMARY | 2025-06-09 12:32 | XMS_ITS | Clinical Summary ---
Author Organization [facility] Address [address] [place] [address] Care Team Providers Care Jewel Bearing Maker Name Role Phone Provider, No Pcp Primary Care Provider Unavailab le Source Comments [facility],non-owned Affiliates and Associated Physician Practices is amultiple site organization consisting of ambulatory clinics and hospital sitesin [place], [place], [place] and [place]. This disclosure is being madepursuant to the Care Everywhere program and may not contain all information available regarding this patient. Last updated 18.[facility] Allergies Active Allergy Reactions Criticality Noted Date [...] Recorded Patient Health Questionnaire-2 Score 0 09/03/2024 [facility] [place] of Occupat ional Health - Occupational Stress [...] any time in the past 12 m [facility], were you homeless or living in a fpc (including now)? No 08/31/2024 Comments Unknown Sex and Gender Information Value Date Recorded Sex Assigned at Not on file Legal Sex Female 4:14 PM LIVESTOCK HANDLER Gender Identity Not on file Sexual Orientation Not on file Last Filed Vital Signs Vital Sign Reading Time Taken Comments Blood Pressure 141/70 09/03/2024 8:04 AM LIVESTOCK HANDLER Pulse 105 09/03/2024 8:04 AM LIVESTOCK HANDLER Temperature 36.6 C (97.9 F) 09/03/2024 8:04 AM LIVESTOCK HANDLER Respiratory Rate 18 09/03/2024 8:04 AM LIVESTOCK HANDLER Oxygen Saturation 100% 09/03/2024 8:04 AM LIVESTOCK HANDLER Inhaled Oxygen Concentration - - Weight 56.7 kg (125 lb) 09/01/2024 8:07 PM LIVESTOCK HANDLER Height 162.6 cm (5' 4) 09/01/2024 8:07 PM LIVESTOCK HANDLER Body Mass Index 21.46 09/01/2024 8:07 PM LIVESTOCK HANDLER Plan of Treatment Health Maintenance Due Date [...] PROTEIN SCREENING 09/14/2024 DIABETES-HGB A1C 03/01/2025 08/31/2024 COVID-19 VACCINE ( season) 2025 06/07/2024, 06/12/2023, 07/17/2022, Additional history exists INFLUENZA VACCINE (#1) 2025 , 06/12/2023, 07/17/2022, [...] PANEL (CALCIUM TOTAL) Routine 09/03/2024 2:10 AM LIVESTOCK HANDLER Nontraumatic hemorrhage of right cerebral hemisphere HEMOGLOBIN A1C Add on 08/31/2024 4:12 PM LIVESTOCK HANDLER Nontraumatic hemorrhage of right cerebral hemisphere from Last 3 Months or Most Recently Relevant to Health Maintenance Results * (ABNORMAL) BASIC METABOLIC PANEL (CALCIUM TOTAL) (09/03/2024 2:10 AM LIVESTOCK HANDLER) BUN 26 7 - 26 mg/dL 09/03/2024 [...] Lab Venipuncture / Unknown 09/03/2024 2:10 AM LIVESTOCK HANDLER 09/03/2024 3:02 AM [facility] us Reina Ma MD LAB - CHEMISTRY ORDERABLES F inal Result [facility] [address] [place] [address], [facility] [phone] * (ABNORMAL) HEMOGLOBIN A1C (08/31/2024 4:12 PM [...] to evaluate metabolic control in patients. Reference: [place] Diabetes Association, Standards of Care in Diabetes -2020 In patients 70 years and older consider HbA1c target range of 7.0-7.5% (Reference: Davon Goldstein et al. JAMDA. 2012) The Sebia assay for the measurement of HbA1c is a National Glycohemoglobin Standardization Program (NGSP) certified method. Blood BLOOD SPECIMEN / Unknown Lab Venipuncture / Unknown 08/31/2024 4:12 PM LIVESTOCK HANDLER 08/31/2024 4:33 PM LIVESTOCK HANDLER Ayan Livingston MD LAB - CHEMISTRY ORDERABLES Fi nal Result [facility] [address] [place] [address], [facility] [phone] from Last 3 Months or Most Recently Relevant to Health Maintenance Insurance MEDICARE AETNA MEDICARE AETNA Advance Directives * Full Code (Latest Code Status on File) Date Activated Date Inactivated Comments 08/31/2024 11:06 AM 09/03/2024 3:17 PM Care Teams Jewel Bearing Maker Relationship Specialty Start Date End Date Provider, No Pcp PCP - General 08/30/24
--- NOTE | 2025-06-09 12:41 | ECG_ITS ---
Test Date: 2025-06-09 12:50:24 Measurements Intervals Angelica Rate: 61 P: 0 SD: 0 QRS: 241 QRSD: 152 T: 81 QT: 449 QTc: 455 Interpretive Statements atrial tachycardia/flutter RIGHT AXIS DEVIATION [QRS AXIS > 100] RIGHT BUNDLE BRANCH BLOCK [120+ ms QRS DURATION, UPRIGHT V1, 40+ ms S IN I/aVL/V4/V5/V6] Electronically Signed On 06-09-2025 20:06:55 CDT by Zita Fallon M.D.
[2025-06-09 12:46] LABS: Hematocrit 34.7 % (35.0-42.0); Hemoglobin 10.6 g/dL (11.7-13.8); Immature Granulocyte Percent A 0.3 % (0.0-0.0); Lymphocytes Absolute Auto 1.46 K/mm3 (1.10-4.50); Mean Corpuscular HGB Conc 30.5 g/dL (32-36); Mean Corpuscular Hemoglobin 29.8 pg (27.0-31.0); Mean Corpuscular Volume 97.5 fL (78.0-102.0); Nucleated Red Blood Cells Absolute Auto 0.00 K/mm3 (0.00-0.00); Nucleated Red Blood Cells Perc 0.0 % (0-0.0); Platelet Count Result 281 K/mm3 (150-420); Red Blood Count 3.56 M/mm3 (4.20-5.40); White Blood Count 7.2 K/mm3 (4.8-10.8)
[2025-06-09 13:02] LABS: Alanine Aminotransferase 56 U/L (6-35); Albumin Level 4.1 g/dL (3.5-5.1); Alkaline Phosphatase 95 U/L (38-126); Anion Gap 11 mmol/L (4-12); Aspartate Amino Transferase 48 U/L (14-36); Bilirubin,Total 0.4 mg/dL (0.2-1.3); Blood Urea Nitrogen 31 mg/dL (7-17); Calcium 9.8 mg/dL (8.4-10.2); Carbon Dioxide 26 mmol/L (22-30); Chloride 106 mmol/L (98-107); Estimated Glomerular Filt Rate 42; Glucose 184 mg/dL (65-110); Lipase 69 U/L (23-300); Osmolality Calculated 307 mOsm/kg (285-295); Potassium 4.4 mmol/L (3.4-5.0); Sodium 143 mmol/L (137-145); Total Protein 7.5 g/dL (6.3-8.2)
[2025-06-09 13:05] LABS: Add Urine Microscopic? YES; Appearance Urine Clear (Clear); Glucose Urine UA Negative (Negative); Leukocyte Esterase Ur 2+ LEU/UL (Negative); Nitrate Urine Negative (Negative); Specific Grav Ur 1.025 (1.010-1.020)
[2025-06-09 13:06] LABS: Hemoglobin A1C 6.5 % (<5.7)
[2025-06-09 13:14] LABS: Troponin I < 0.012 ng/mL (0.000-0.034)
[2025-06-09 13:33] LABS: Thyroid Stimulating Hormone Reflex 1.050 uIU/mL (0.465-4.68)
[2025-06-09] MEDS: SODIUM CHLORIDE 0.9% IV 1,000 ML 250 ML IV CONT (16:29)
[2025-06-09 20:36] VITALS: BP 127/73; PULSE 76; RESP 16; TEMP 36.3; O2SAT 97
--- NOTE | 2025-06-09 20:39 | PC.NURSE ---
Patient sent over from PCP office for labs and IV fluids. Arrival vital signs BP 139/63, P 63, R 15, T 97.4, T 97.4. IV 18 gauge inserted to Left forearm. IV fluids started at 250 hour. Patient up to commode with assist. Urinated clear yellow urine. IV infused over 4 hours. Patient tolerated infusion well. IV removed, site care instructions given. Post vital signs BP 127/73, P 76, R 16, T 97.4, SPO2 97.4 on room air. Patient off the floor with and son assisting.
== END 2025-06-09 12:28 | disposition home or self-care (01) ==
LOC: CHSLAB 14:29 → CHSTREATRM 15:37
PROVIDERS: PCP Nurse Practitioner Family; Visit Provider Nurse Practitioner Family
DX: R41.82 Altered mental status, unspecified (principal); E11.9 Type 2 diabetes mellitus without complications; R53.83 Other fatigue; I45.10 Unspecified right bundle-branch block
CPT/HCPCS: 36415; 70450; 71046; 80053; 81001; 83036; 83690; 84443; 84484; 85025; 87086; 93005; 96360; 96361; J7030

== ENCOUNTER 2025-06-13 13:00 | Outpatient (RCR) | payer MEDICARE, SELFPAY ==
[2025-03-16 00:02] VITALS: O2SAT 50; O2SAT 83
--- NOTE | 2025-03-16 09:04 | PCSTNOTE ---
The treatment documented on this account is a continuation of the treatment documented on visit number [id number]. Please see documentation on both accounts to view progress. The Plan of Care has been transitioned and updated within the new A#. I have addressed and agree with the discipline specific Problems, Interventions, and Goals for the current certification period. Completed interventions, outcomes, and problems have been marked as Inactive to facilitate the copying of the Care plan routine for recurring accounts.
--- NOTE | 2025-04-24 12:24 | BUSTOPEVAL1 ---
Assessment and note entered by Aliyah Lyles, MANAGER STEEL Evaluation Information Assessment Status Progress Diagnosis CVA ICD-10 Condition Codes (ST) Dysarthria following other cerebrovascular disease I69.822,Dysphagia following other cerebrovascular disease I69.891 Other ICD-10 Condition Codes ( R47.01 Aphasia, Dysarthria I69.822 ST) Subjective Information Patient was referred for a skilled ST evaluation due to a recent CVA on August 31, 2024 impacting patient's ability to walk, speak, and increased difficulty swallowing. The patient's reported that upon onset the patient had difficulty standing up and he called 911. The patient was hospitalized for several days and now has returned home. The patient was recently being seen for skilled ST prior to recent CVA and was showing good progression in verbal expression skills, memory, organizational skills and speech intelligibility skills. Patient has completed a total of [address] sessions for the treatment of speech and language skills since the previous progress report written on 02-13-25. The patient continues to demonstrate difficulty with production of speech due to dysarthria along with difficulty swallowing. Swallowing has been a focus throughout the past [address] sessions targeting strengthening, diet modification/ training and compensatory techniques to improve airway protection with some improvements noted. Patient and reported improvements but continue to see difficulty tolerating solids/ liquids at times. Coughing with one meal per day. Throughout treatment patient continues to demonstrate a significant delay in swallow initiation resulting in coughing with solids and liquids. Plan for skilled ST treatment to continue to shift focus to primarily dysarthria for speech /strengthening oral motor function along with swallowing function to improve airway protection and decrease risk for aspiration. To determine in the upcoming weeks if patient needs to complete a modified barium swallow study to assess current diet and risk for aspiration. MASA given with a score of 144 indicating moderate dysphagia and moderate aspiration risk at this time (previous testing completed on 11-24-24 with a score of 160 indicating moderate dysphagia and mild aspiration risk). Reported Pain Level Pain Score 0: Self Report Pain Score 0: Self Report Pain Score 0: Self Report Pain Score No Pain: Valdez Coronel Pain Score 0: Self Report Pain Score 0: Self Report Additional Pain Score Comments Left knee Assessment ST Clinical Summary Patient was referred for a skilled ST evaluation due to a recent CVA August 31, 2024 resulting in an increase in slurred speech, difficulty with memory, and difficulty with verbal expression skills. The patient was participating in ST treatment prior to this most recent CVA. The patient has completed a total of [address] treatment sessions for the treatment of aphasia since the previous progress report written on 11-08. The patient continues to demonstrate difficulty with swallowing with shift in focus for skilled ST treatment to target dysarthria and dysphagia over the past 10 sessions due to the plateau in skills for cognitive function at this time. The Mc Assessment of Swallowing Ability ( MASA) was given on 11-24-24 with a score of 160 indicating moderate dysphagia and a mild risk for aspiration at this time. The MASA was re- administered during the session this date with a score of 144 indicating moderate dysphagia and moderate risk for aspiration at this time. Patient continues to present with severe delay in swallowing initiation resulting in significant holding of 10+ seconds along with coughing post deglutition with solid and fluid trials. Patient was given trials of level 2 fluids with no noted coughing. Patient to trial level 2 fluids at home to determine if improvement in swallowing function is noted. Patient continues to demonstrate poor strength for cough/throat clear, wet gurgle vocal quality and poor respiratory support/control for swallowing. Modified barium swallow study may be recommended in the upcoming weeks to determine safety diet and compensatory techniques to improve overall swallowing function and tolerance. Recommendation for skilled ST treatment to target dysarthria and dysphagia I69.891 to improve patient's cognitive-communication skills to reduce frustration, improve overall communication abilities within patient's environment, and reduce risk for aspiration through improved tolerance of least restrictive diet. Recommendation for skilled ST 1x/week for 10 visits. These treatments will address the objective and functional deficits as defined above. The patient will be advanced safely and appropriately in order for the patient to progress towards his/her prior level of function. Additional exercises will be introduced and as well as a comprehensive home exercise program upon discharge, if needed, ?to ensure carryover of functional gains achieved in the clinic. This treatment plan has been reviewed and agreement upon by the patient.
--- NOTE | 2025-06-20 11:00 | PCSTNOTE ---
This treatment is being continued on visit number [id number]. Please see documentation on both accounts to view progress. Completed interventions, outcomes, and problems have been marked as Inactive to facilitate the copying of the Care plan routine for recurring accounts.
== END 2025-06-19 23:59 | disposition home or self-care (01) ==
LOC: CHSST 13:00
PROVIDERS: PCP Nurse Practitioner Family; Visit Provider Nurse Practitioner Family
DX: R47.01 Aphasia (principal); I61.9 Nontraumatic intracerebral hemorrhage, unspecified
CPT/HCPCS: 92507; 92526

== ENCOUNTER 2025-07-25 13:12 | Emergency (ER) | payer MEDICARE, SELFPAY ==
--- OUTSIDE RECORDS SUMMARY | 2023-03-05 04:00 | XMS_ITS | Continuity of Care Document ---
Author Organization [facility] [place] Address [address] [place] [address] Phone Care Team Providers Care Case Finishing Machine Adjuster Name Role Phone Femi Wiggins MD Unavailable Unavailable Allergies, Adverse Reactions, Alerts Substance Reaction Status Criticality lisinopril Active No Information AMLODIPINE BESYLATE Active No Infor mation Medications Medication Instructions Dosage Effective Dates (start - stop) Status Comments Eliquis 5 mg tablet take 1 tablet by ora l route 2 times every day 5 MG - Active AREDS 2 ORAL CAPSULE take one tablet daily - Active budesonide 0.5 mg/2 mL suspension for nebulization inhale 2 milliliter by nebulization route 2 times every day 0.5 MG - Active atenolol 50 mg tablet take 1 tablet by o ral route every day 50 MG - Active spironolactone 50 mg tablet take 1 tablet by oral route every day 50 MG - Active amlodipine 10 mg tablet take 1 tablet by oral route every day 10 MG - Active metformin 500 mg tablet take 2 tablet by oral route every day with morning and evening meals 1000 MG - Active Procedures Procedure Date No Charge Optomap Fundus Photos 023 Eye Exam & Treatment No Charge GDX Retina Fundus Photography W/ Report Office/outpatient Visit, Est No Charge Refraction Post-op Follow-up Visit Post-op Follow-up Visit Remove Cataract, Post Op Care Remove Cataract, Insert Lens,Comanaged D Echo Exam Of Eye-Professional Nov-30-202 1 Fundus Photography W/ Report No Charge IOL Master Echo Exam Of Eye-Technical No Charge Orbscan No Charge Refraction Office/outpatient Visit, Est Fundus Photography W/ Report Eye Exam & Treatment Fundus Photography W/ Report Office/outpatient Visit, Est No Charge Refraction Post-op Follow-up Visit Post-op Follow-up Visit Remove Cataract, Post Op Care 0 Remove Cataract, Insert Lens,Comanaged M IOLMaster-Professional No Charge Refraction No Charge AScan No Charge Orbscan IOLMaster-Technical SCODI, Retina Office/outpatient Visit, New No Charge Refraction IOLMaster-Technical SCODI, Retina Eye Exam, New Patient Advance Directives Directive Yes / No Effective Date File Name No Information Encounters Encounter Description Practice Location Reason(s) For Visit Diagnoses Date Provider Providers Copied on Encounter Formerly [facility], [address], [place], [place], [address], [place] tel:[phone] SEC Jason SARMIENTO Professional Diabetic eye exam (chief complaint) Type 2 diabetes mellitus without complication sPresence of intraocular lensExdtve age-rel mclr degn, right eye, with inact chrdl neovasNexdtv e age-related mclr degn, left eye, early dry stage 3 Feliciano Kahn. [address] [facility], [facility] [place], [address], [place]. tel:[phone] Referring Provider: Angelina Marroquin MD K, [address], [address], [place], [address]. tel:[phone] Office/outpa tient Visit, Est Formerly [facility], [address], [place], [place], [address], tel:[phone] SEC [place] Professional 6 month Complete (chief complaint) Presence of intraocular lensExdtve age-rel mclr degn, right eye, with inact chrdl neovasHistor y of endophthalmi tisOther secondary cataract, right eyeType 2 diabetes mellitus without complication sVitreous degeneration , bilateral Maurice- 2 Jerrica OD Denise. [facility] [address], [place], [place], [address], [place]. tel:[phone] Referring Provider: Angelina Dela Cruz, [address] [place] [address], [facility] [address], [place], [address]. tel:[phone] [facility] [address] [facility], [facility] [address], [place], [place], [address], tel:[phone] SEC Jason SARMIENTO Professional 1 month s/p PCIOL (chief complaint) Post op visit Aug- 1 Jerrica OD Denise. [facility] [address], [address], [place], [place], [address], [place]. tel:[phone] Referring Provider: Angelina Dela Cruz, [address] [facility], [facility] [address], [place], [address]. tel:[phone] [facility] [address] [facility], [address], [place], [place], [address], tel:[phone] SEC Jason SARMIENTO Professional 1 wk po PCIOL OS (08/14/21) (chief complaint) Post op visit Dec-0 1 Jerrica OD Denise. [facility] [address], [address], [place], [place], [address], . tel:[phone] Referring Provider: Angelina Dela Cruz, [address] [facility], [address], [place], [address]. tel:[phone] Formerly [facility], [address], [place], [place], [address], [place] tel:[phone] SEC [place] Professional 1 day s/p PCIOL (chief complaint) Post op visit 0 1 Jerrica BRYANT Denise. [address] [place] [address] [address], [address], [place], [place], [address], [place]. tel:[phone] Referring Provider: Angelina Dela Cruz, [address], [facility], [place], [address]. tel:[phone] [facility], [address], [place], [place], [address], [place] tel:[phone] [facility] No Information 1 Feliciano Kahn. [address] [facility], [address] [place], [address], [place]. tel:[phone] Referring Provider: Angelina Dela Cruz, [address] [place] [address], [facility] [address], [place], [address]. tel:[phone] [facility], [address], [place], [place], [address], [place] [phone] SEC Jason GUILLERMINA Professional No Information 1 Feliciano Kahn. [address] [facility], [address], [place], [place], [address], [place]. tel:[phone] Referring Provider: Angelina Dela Cruz, [address], [address], [place], [address]. tel:[phone] Office/outpa tient Visit, Est [facility], [address], [place], [place], [address], [place] [phone] SEC [place] Professional 6 month Cataract check (chief complaint) Exdtve age-rel mclr degn, right eye, with inact chrdl neovasType 2 diabetes mellitus without complication sNexdtve age-related mclr degn, left eye, early dry stageCombine d forms of age-related cataract, left eye Oct-2 1 Feliciano Kahn. [address] [employer], [address] [place], [address], [place]. tel:[phone] Referring Provider: Angelina Dela Cruz, [address], [address], [place], [address]. tel:[phone] [facility], [address], [place], [place], [address], [place] tel:[phone] SEC Jason SARMIENTO Professional 6 month Cataract check (chief complaint) Nexdtve age-related mclr degn, left eye, early dry stageExdtve age-rel mclr degn, right eye, with inact chrdl neovasPseudo phakia of right eyeAge-relat ed nuclear cataract, left eyeOther secondary cataract, right eyeVitreous degeneration , bilateralTyp e 2 diabetes mellitus without complication s Apr-2 1 Feliicano Kahn. [address] [employer], [address], [place], [place], [address], [place]. tel:[phone] Referring Provider: Angelina Dela Cruz, [address], [address], [place], [address]. tel:[phone] [facility], [address], [place], [place], [address], [place] [phone] SEC Jason [place] Professional No Information Apr-0 1 Feliciano Kahn. [address] [employer], [address], [place], [place], [address], [place]. tel:[phone] Office/outpa tient Visit, Est [facility], [address] [place] [address] [address], [place], [place], [address], tel:[phone] SEC Jason SARMIENTO Professional Complete exam (chief complaint) Type 2 diabetes mellitus without complication sPseudophaki a of right eyeNexdtve age-related mclr degn, left eye, early dry stageCombine d forms of age-related cataract, left eyeOther secondary cataract, right eyeExdtve age-rel mclr degn, right eye, with inact chrdl neovas Oct-2 7202 0 Feliciano Kahn. [address] [facility], [address], [place], [place], [address], [place]. tel:[phone] Referring Provider: Angelina Dela Cruz, [address] [place] [address], [facility], [place], [address]. tel:[phone] [facility], [address] [place] [address] [address], [place], [place], [address], tel:[phone] SEC Jason SARMIENTO Professional Postop PCIOL OD (11/30/19) (chief complaint) Post op visit Dec-2 202 0 Bety OD Fermín. [address] [facility], [address]th [address], [place], [address], [place]. tel:[phone] Referring Provider: Angelina Dela Cruz, [address] [place] [address], [address], [place], [address]. tel:[phone] [facility], [address] [place] [address] [address], [place], [place], [address], [place] tel:[phone] SEC [place] Shelbiyonis 1 week s/p PCIOL (chief complaint) Post op visit Nov-3 0-202 0 Kristy Funes. [address] [place] [address] Drive, [address], [place], [place], [address], [place]. tel:[phone] Referring Provider: Angelina Dela Cruz, [address] [facility], [facility] [address], [place], [address]. tel:[phone] [facility], [address], [place], [place], [address], [place] tel:[phone] SEC Jason SARMIENTO Professional 1 day s/p PCIOL (chief complaint) Post op visit 0 Bety MANNY Fermín. [address] [facility], 6th Floor, [place], [address], [place]. tel:[phone] Referring Provider: Angelina Dela Cruz, [address] [facility], [address], [place], [address]. tel:[phone] [facility], [address], [place], [place], [address], [place] tel:[phone] [facility] No Information 0 Feliciano Kahn. [address] [facility], [facility] [place], [address], [place]. tel:[phone] Referring Provider: Angelina Dela Cruz, [address] [facility] [address] [facility], [address], [place], [address]. tel:[phone] [facility], [address], [place], [place], [address], [place] tel:[phone] SEC Jason SARMIENTO Professional No Information 0 Feliciano Kahn. [address] [facility], [facility] [place], [address], [place]. tel:[phone] Referring Provider: Angelina Dela Cruz, [address] [facility], [address], [place], [address]. tel:[phone] Office/outpa tient Visit, [facility], [address], [place], [place], [address], [place] tel:[phone] SEC Jason SARMIENTO Professional Cataract evaluation (chief complaint) Combined forms of age-related cataract, bilateralTyp e 2 diabetes mellitus without complication sNexdtve age-related mclr degn, left eye, early dry stagePunctat e keratitis, left eyeHistory of endophthalmi tisExdtve age-rel mclr degn, right eye, with inact chrdl neovas 0-202 0 Feliciano Kahn. [address] [facility], [address], [place], [place], [address], [place]. tel:[phone] Referring Provider: Angelina Marroquin MD K, [address] [facility], [address], [place], [address]. tel:[phone] [facility], [address], [place], [place], [address], [place] tel:[phone] SEC [place] GUILLERMINA Professional No Information 0 Feliciano Kahn. [address] [facility], [facility], [place], [place], [address], [place]. tel:[phone] [facility], [address], [place], [place], [address], [place] tel:[phone] SEC [place] GUILLERMINA Professional Blurry vision (chief complaint) Lesion of eyelidNuclea r sclerosis of both eyesMacular pigment epithelial detachment, rightType 2 diabetes mellitus without complication s 3-201 6 Feliciano Kahn. [address] [facility], [facility], [place], [place], [address], [place]. tel:[phone] Referring Provider: Sharonda Aparicio OD, [facility] [address] [facility], [place], [address]. tel:[phone] Family History Family Member Type Diagnosis Age At Onset No Information Payers Payer name Insurance type Covered alliance party ID Authoriza tion(s) [place] GRECIA [id number] A[employer] Mdcr Supp CI [id number] Social History Type Description Quantity Date Captured Comments Alcohol Use Details Caffeine Use Details Tobacco Use Status Heavy cigarette smok er (20-39 cigs/day) Smoking Status Heavy tobacco smoker Smoking Tobacco Use Details Cigarette: No Details Available Cigarette: 1 Packs per day Sex Female Chief Complaint And Reason For Visit From encounter dated '03/05/2023 10:00'. Diabetic eye exam (chief complaint). Description: The 77 year old patient presents for evaluation of Diabetic eye exam in the right eye and left eye. Patient states she is unaware of any changes witheyes. Patient is a Diab, doesn't check BS, unknown a1c, and PCP treats her diab. Patient takes an eye vitamin. Patient followed by Cara and was seen on Thursday with her. Patients son statesDr. Marroquin said there wasn't anything they could do anymore about her VA. Reason For Referral Reason For Referral No Information Plan Of Treatment Date Type Action Status Goal Tobacco cessation counseling completed Goal Tobacco cessation counseling completed Goal Tobacco cessation counseling completed Goal Tobacco cessation counseling completed Goal Tobacco cessation counseling completed Goal Tobacco cessation counseling completed Goal Tobacco cessation counseling completed Goal Tobacco cessation counseling completed Goal Tobacco cessation counseling completed Goal Tobacco cessation counseling completed Goal Tobacco cessation counseling completed Goal Tobacco cessation counseling completed Goal Tobacco cessation counseling completed Goal Tobacco cessation counseling completed Patient Education Learning About Foot and Toenail Care completed Patient Education Learning About Vitreous Detachment completed Patient Education Cataracts: Care Instruc tions completed Patient Education Age-Related Macular Deg eneration: Car~ completed Patient Education Age-Related Macular Deg eneration: Car~ completed Patient Education Cataract Surgery: What to Expect at H~ completed History Of Present Illness Encounter Date Complaint History Of Prese nt Illness Diabetic eye exam The 77 year ol d patient presents for evaluation of Diabetic eye exam in the right eye and left eye. Patient states she is unaware of any changes with eyes. Patient is a Diab, doesn't check BS, unknown a1c, and PCP treats her diab. Patient takes an eye vitamin. Patient followed by Cara and was seen on Thursday with her. Patients son states Dr. Marroquin said there wasn't anything they could do anymore about her VA. 6 month Complete The 76 year old patient presents for evaluation of 6 month Complete in the right eye and left eye. Hx of PCIOL OU, PVD OU, AMD OS, Wet AMD OD, and Drusen OU. Patient denies any changes with eyes. VA seems the same. Patient taking AREDS. Patient is a Type 2 diab, doesn't check BS, unknown A1C, and PCP treats her diab. 1 month s/p PCIOL The 76 year ol d female presents for evaluation of 1 month s/p PCIOL in the left eye. (08/14/21) Patient states VA is good. 1 wk po PCIOL OS (08/14/21) The [age] year old female presents for evaluation of 1 wk po PCIOL OS (08/14/21). Pt reports good comfort and vision OS. Pt reports taking Pred, Ketorolac, and Vigamox QID OS. 1 day s/p PCIOL The 76 year old female presents for evaluation of 1 day s/p PCIOL in the left eye. Patient states VA seems good. Patient instructed to use Pred, Ket, and Vig as well as use of eye shield. 6 month Cataract check The 75 ye ar old female presents for evaluation of 6 month Cataract check in the left eye. Hx PCIOL OD, Cataract OS, PVD OU, Wet AMD OD, AMD OS, and Drusen OU. Pt reports not driving due to her vision, she sees glare from overhead lighting . Pt reports trouble seeing street signs, TV, and small print at near such as newspapers, books, and medicine bottles x many months OS. Pt is followed by Dr. Marroquin. 6 month Cataract check The 75 ye ar old female presents for evaluation of 6 month Cataract check in the left eye. Hx of WET CME AMD OD, AMD OS, PCIOL OD, Cataract OS, PVD OD, and Drusen OS. Patient states she is not having any problems or changes and does not want cataract sx on her left eye at this time. Patient taking AREDS BID po. Patient is a Type 2 diab x 10 years, NOT on INsulin, doesn't check BS, a1c not sure of, and PCP treats her diab. Patient is followed by Dr. Marroquin. Complete exam The 74 year old female presents for evaluation of Complete exam in the right eye and left eye. Hx Wet AMD OD, Dry AMD OS, DM2, PCIOL OD, Cataract OS. Pt is followed by Dr. Marroquin for AMD, last seen 04/09/20. Pt reports improved vision with new MRx from 2 months ago. Last A1c unknown, BS unknown, followed by PCP. Postop PCIOL OD (11/30/19) The 74 year old female presents for evaluation of Postop PCIOL OD (11/30/19). Pt reports good comfort and improved vision OD. Pt reports OD vision is not a lot better, but improved. Pt reports taking Vigamox TID OD, Pred QID OD on taper, and Ketorolac TID OD. She finished all gtts on Thursday01/01/20. Pt is followed by Dr. Marroquin for AMD and last saw her 2-3 weeks ago. 1 week s/p PCIOL The 74 year old female presents for evaluation of 1.5 week s/p PCIOL in the right eye (11/30/19). Patient states VA is good some days better than others. Patient using Pred, Vig, and Ket as directed. 1 day s/p PCIOL The 74 year old female presents for evaluation of 1 day s/p PCIOL in the right eye. Patient states VA is blurry. Patient instructed to use Pred, Ket, and Vig as well as use of eye shield. Cataract evaluation The 74 year old female presents for evaluation of Cataract evaluation in the right eye and left eye. Hx of CAT OU, Wet AMD OD s/p injections and Dry AMD OS (followed by [place]), MGD OU, RUBEN OU, puncta/canthus lesion OD s/p removal, Conjunctival cyst OS, Pinguecula OS, Lattice degeneration OS, and Purulent endophthalmitis OD. Pt is NIDDM II x 5 yrs, followed by PCP, pt reports she doesn't check BS, last A1C was about a yr ago, she is unsure of A1C but it was ok. Pt reports she doesn't drive anymore due to her vision, OD>OS, even with gls on, x yrs. Pt reports she isn't currently using any gtts and no pain or irritation, OU. Blurry vision The 70 year old female presents for a cataract evaluation ou. Patient c/o hard to see road signs and c/o blurry vision ou. Patient is a diabetic and doesn't check BS. Functional Status Date Functional Assessmen t No Information Instructions Date Instruction Additional Infor mation Impression/Plan Impression/Plan Impression/Plan Impression/Plan Impression/Plan Impression/Plan Impression/Plan Impression/Plan 6mo comp or sooner prn Related t o Post op visit Impression/Plan Related to Post op visit Impression/Plan Impression/Plan Impression/Plan Follow up - Appointm ent with Austin Mazariegos MD January 28, 2016 @ 1[place] in the [place], they will notify the patient and our office with the details. Impression/Plan - Baron b-retinal Fluid with possible PED OD discussed in detail with patient. Explained that this is likely affecting her vision in the right eye more so than the cataract. Before CE can be considered she will need to be evaluated and treated by a retina specialist. The Pigmented lesion of the right medial canthus involving the RUL with occlusion of right upper puncta, medial RLL and caruncle looks concerning for possible melanoma. Strongly recommend patient be evaluated by an oculoplastic surgeon to have a biopsy performed. Refer patient to Paul Jackson MD.Patient understands she does have visually significant cataracts in both eyes, but the retina and pigmented lesion need to be addressed first. Explained once the Retina specialist and Oculoplastic surgeon have released her back to our care, we will discuss CE at that time. Assessments Type Assessment Date assessment Type 2 diabetes mellitus without complications assessment Presence of intraocular lens Feb assessment Exdtve age-rel mclr degn, right eye, with inact chrdl neovas assessment Nexdtve age-related mclr degn, l eft eye, early dry stage Patient Care Teams Name Effective Dates (start - stop) Status Members No Information
--- OUTSIDE RECORDS SUMMARY | 2023-03-05 04:00 | XMS_ITS | Continuity of Care Document ---
Author Organization [facility] Address [address] [place] [address] Phone Care Team Providers Care Licensed Home Inspector Name Role Phone Fmei Wiggins MD Unavailable Unavailable Allergies, Adverse Reactions, [...] Diagnoses Date Provider Providers Copied on Encounter [facility], [address], [place], [place], [address], [place] tel:[phone] SEC Jason SARMIENTO Professional Diabetic eye exam (chief complaint) Type 2 diabetes mellitus without complication sPresence of intraocular lensExdtve age-rel mclr degn, right eye, with inact chrdl neovasNexdtv e age-related mclr degn, left eye, early dry stage 3 Feliciano Kahn. [address] [facility], [facility] [place], [address], [place]. tel:[phone] Referring Provider: Angelina Marroquin MD K, [address] [facility], [address], [place], [address]. tel:[phone] Office/outpa tient Visit, Est [facility], [address], [place], [place], [address], tel:[phone] SEC [place] Professional 6 month Complete (chief complaint) Presence of intraocular lensExdtve age-rel mclr degn, right eye, with inact chrdl neovasHistor y of endophthalmi tisOther secondary cataract, right eyeType 2 diabetes mellitus without complication sVitreous degeneration , bilateral Maurice- 2 Jerrica OD Denise. [facility] [employer], [address], [place], [place], [address], [place]. tel:[phone] Referring Provider: Angelina Dela Cruz, [address] [place] [address], [facility] [address], [place], [address]. tel:[phone] [email or web address], [facility] [address], [place], [place], [address], tel:[phone] SEC Jason SARMIENTO Professional 1 month s/p PCIOL (chief complaint) Post op visit Aug- 1 Jerrica OD Denise. [facility] [employer], [address], [place], [place], [address], [place]. tel:[phone] Referring Provider: Angelina Dela Cruz, [address] [facility], [facility] 700, [place], [address]. tel:[phone] [email or web address], [address], [place], [place], [address], tel:[phone] SEC Jason SARMIENTO Professional 1 wk po PCIOL OS (08/14/21) (chief complaint) Post op visit Dec-0 1 Jerrica OD Denise. [facility] [employer], [address], [place], [place], [address], . tel:[phone] Referring Provider: Angelina Dela Cruz, [address] [facility], [address], [place], [address]. tel:[phone] [facility], [address], [place], [place], [address], [place] tel:[phone] SEC [place] Professional 1 day s/p PCIOL (chief complaint) Post op visit 0 1 Jerrica BRYANT Denise. [address] [place] [address] Drive, [address], [place], [place], [address], [place]. tel:[phone] Referring Provider: Angelina Dela Cruz, [address] [facility], [facility] 700, [place], [address]. tel:[phone] [facility], [address], [place], [place], [address], [place] tel:[phone] [facility] No Information 1 Feliciano Kahn. [address] [facility] [facility], Suite [place], [address], [place]. tel:[phone] Referring Provider: Angelina Dela Cruz, [address] [place] [address], [facility] [address], [place], [address]. tel:[phone] [facility], [address], [place], [place], [address], [place] [phone] SEC Jason GUILLERMINA Professional No Information 1 Feliciano Kahn. [address] [facility], [address], [place], [place], [address], [place]. tel:[phone] Referring Provider: Angelina Dela Cruz, [address] [facility], [address], [place], [address]. tel:[phone] Office/outpa tient Visit, Est [facility], [address], [place], [place], [address], [place] [phone] SEC [place] Professional 6 month Cataract check (chief complaint) Exdtve age-rel mclr degn, right eye, with inact chrdl neovasType 2 diabetes mellitus without complication sNexdtve age-related mclr degn, left eye, early dry stageCombine d forms of age-related cataract, left eye Oct-2 1 Feliciano Kahn. [address], Suite [place], [address], [place]. tel:[phone] Referring Provider: Angelina Dela Cruz, [address] [facility], [address], [place], [address]. tel:[phone] [facility], [address], [place], [place], [address], [place] tel:[phone] SEC Jason SARMIENTO Professional 6 month Cataract check (chief complaint) Nexdtve age-related mclr degn, left eye, early dry stageExdtve age-rel mclr degn, right eye, with inact chrdl neovasPseudo phakia of right eyeAge-relat ed nuclear cataract, left eyeOther secondary cataract, right eyeVitreous degeneration , bilateralTyp e 2 diabetes mellitus without complication s Apr-2 1 Feliciano Kahn. [address], [address], [place], [place], [address], [place]. tel:[phone] Referring Provider: Angelina Dela Cruz, [address] [facility], [address], [place], [address]. tel:[phone] [facility], [address], [place], [place], [address], [place] [phone] SEC Jason [place] Professional No Information Apr-0 1 Feliciano Kahn. [address], [address], [place], [place], [address], [place]. tel:[phone] Office/outpa tient Visit, Est [email or web address], [address] [place] [address] [address], [place], [place], [address], tel:[phone] SEC Jason SARMIENTO Professional Complete exam (chief complaint) Type 2 diabetes mellitus without complication sPseudophaki a of right eyeNexdtve age-related mclr degn, left eye, early dry stageCombine d forms of age-related cataract, left eyeOther secondary cataract, right eyeExdtve age-rel mclr degn, right eye, with inact chrdl neovas Oct-2 7202 0 Feliciano Kahn. [address] [facility], [address], [place], [place], [address], [place]. tel:[phone] Referring Provider: Angelina Dela Cruz, [address] [place] [address], [facility] 700, [place], [address]. tel:[phone] [facility], [address] [place] [address] [address], [place], [place], [address], tel:[phone] SEC Jason SARMIENTO Professional Postop PCIOL OD (11/30/19) (chief complaint) Post op visit Dec-2 202 0 Bety OD Fermín. [address] [facility], 6th Floor, [place], [address], [place]. tel:[phone] Referring Provider: Angelina Dela Cruz, [address] [place] [address], [address], [place], [address]. tel:[phone] [facility], [address] [place] [address] [address], [place], [place], [address], [place] tel:[phone] SEC [place] N Shelbiyonis 1 week s/p PCIOL (chief complaint) Post op visit Nov-3 0-202 0 Kristy Funes. [address] [place] [address] Drive, [address], [place], [place], [address], [place]. tel:[phone] Referring Provider: Angelina Dela Cruz, [address] [facility], [facility] 700, [place], [address]. tel:[phone] [facility], [address], [place], [place], [address], [place] tel:[phone] SEC Jason SARMIENTO Professional 1 day s/p PCIOL (chief complaint) Post op visit 0 Bety MANNY Fermín. [address] [facility], 6th Floor, [place], [address], [place]. tel:[phone] Referring Provider: Angelina Dela Cruz, [address] [facility], [address], [place], [address]. tel:[phone] [facility], [address], [place], [place], [address], [place] tel:[phone] [facility] No Information 0 Feliciano Kahn. [address] [facility], [facility] [place], [place], [address], [place]. tel:[phone] Referring Provider: Angelina Dela Cruz, [address] [facility], [address], [place], [address]. tel:[phone] [facility], [address], [place], [place], [address], [place] tel:[phone] SEC Jason SARMIENTO Professional No Information 0 Feliciano Kahn. [address] [facility], [facility] [place], [address], [place]. tel:[phone] Referring Provider: Angelina Dela Cruz, [address] [facility], [address], [place], [address]. tel:[phone] Office/outpa tient Visit, [facility], [address], [place], [place], [address], [place] tel:[phone] SEC Jason SARMIENTO Professional Cataract evaluation (chief complaint) Combined forms of age-related cataract, bilateralTyp e 2 diabetes mellitus without complication sNexdtve age-related mclr degn, left eye, early dry stagePunctat e keratitis, left eyeHistory of endophthalmi tisExdtve age-rel mclr degn, right eye, with inact chrdl neovas 0-202 0 Feliciano Kahn. [address] [facility], [address], [place], [place], [address], [place]. tel:[phone] Referring Provider: Angelina Marroquin MD K, [address] [facility], [address], [place], [address]. tel:[phone] [email or web address], [address], [place], [place], [address], [place] tel:[phone] SEC Warrior GUILLERMINA Professional No Information 0 Feliciano Kahn. [address] [facility], [facility] A, [place], [place], [address], [place]. tel:[phone] [facility], [address], [place], [place], [address], [place] tel:[phone] SEC Warrior GUILLERMINA Professional Blurry vision (chief complaint) Lesion of eyelidNuclea r sclerosis of both eyesMacular pigment epithelial detachment, rightType 2 diabetes mellitus without complication s 3-201 6 Feliciano Kahn. [address] [facility], [facility] A, [place], [place], [address], [place]. tel:[phone] Referring Provider: Sharonda Aparicio OD, [facility] [address] [facility], [place], [address]. tel:[phone] Family History Family Member Type Diagnosis Age At Onset No Information Payers Payer name Insurance type Covered alliance party ID Authoriza tion(s) Medicare [place] GRECIA [id number] Aetna Mdcr Supp CI [id number] Social History Type Description Quantity Date Captured [...] to Post op visit Impression/Plan Impression/Plan Impression/Plan Impression/Plan - Baron b-retinal Fluid with possible [...] we will discuss CE at that time. Follow up - Appointm ent with Austin Mazariegos MD January 28, 2016 @ 1:[place] in the [place], they will notify the patient and our office with the details. Assessments Type Assessment Date assessment Type 2 diabetes mellitus without complications assessment Presence of intraocular lens Feb assessment Exdtve age-rel mclr degn, right eye, with inact chrdl neovas assessment Nexdtve age-related mclr degn, l eft eye, early dry stage Patient Care Teams Name Effective Dates (start - stop) Status Members No Information
[2025-07-25] VITALS (21 sets, daily range): BP systolic 121–155; BP diastolic 53–79; PULSE 62–77; RESP 14–20; TEMP 36.3; O2SAT 98–100
--- NOTE | ~2025-07-25 | XR_ITS ---
EXAMINATION: XR chest 1V portable COMPARISON: No comparisons available. HISTORY: Weakness FINDINGS: The lungs are clear, no effusion. No pneumothorax. Heart is normal size. Mediastinal and hilar contours are within normal limits. Bony thorax no acute abnormality. Miscellaneous: None Impression: No acute cardiopulmonary abnormality. Reviewed, dictated and finalized at location P. TECHNOLOGY ENGINEERING TECHNOLOGIST Impression: No acute cardiopulmonary abnormality.
--- NOTE | ~2025-07-25 | CT_ITS ---
EXAMINATION: CT brain wo con, 07/25/2025 13:40 END FINDER FORMING DEPARTMENT HISTORY: Weakness COMPARISON: Comparison 06/09/2025 Technique: Axial images obtained of the brain without contrast. One or more of the following dose reduction techniques were used: automated exposure control, adjustment of the mA and/or kV according to patient size, use of iterative reconstruction technique. Findings: Moderate chronic periventricular ischemic changes, no acute infarct or hemorrhage, there are ill-defined foci of calcification within the subcortical white matter of the right frontal lobe nonspecific but may reflect sequelae of previous insult, these findings appear unchanged. Mastoid air cells unremarkable. Sinuses and orbits unremarkable. No acute fracture. No significant facial or scalp soft tissue swelling evident. No radiopaque foreign body is seen. Impression: No acute infarct or hemorrhage. Reviewed, dictated and finalized at location P. FINDER FORMING DEPARTMENT Impression: No acute infarct or hemorrhage.
--- OUTSIDE RECORDS SUMMARY | 2025-07-25 13:16 | XMS_ITS | Clinical Summary ---
Author Organization [facility] [address] [facility] [address] Address [address] [place] [address] Care Team Providers Care Plastic Card Grader Cardroom Name Role Phone Angélica Horton NP Primary Care Provider [phone] [phone] Allergies Active Allergy Reactions Criticality Noted Date [...] 3 Active vitamins A,C,E-zinc-mayela er (ICAPS) 14,320-226-200 brgo-wg-yjtv capsule Take by mouth Active cholecalciferol (VITAMIN D-3) 29768 unit tablet Take 2,000 Units by mouth [...] on file Legal Sex Female 3:59 PM HOUSE PRINCIPAL Gender Identity Not on file Sexual Orientation [...] AETNA MEDICARE AETNA SENIOR SUPPLEMENT Care Teams Plastic Card Grader Cardroom Relationship Specialty Start Date End Date Angélica Horton NP [address] [place] [address] PCP - General Nurse Practitioner 10/07/22
--- OUTSIDE RECORDS SUMMARY | 2025-07-25 13:16 | XMS_ITS | Clinical Summary ---
Author Organization [facility] james [facility] Address [address] [place] [address] Care Team Providers Care Solaris Administrator Name Role Phone Unavailable Primary Care Provider [...] Encounters Date Type Department Care Team Description 07/04/2025 External Device Data STL ABSTRACTION Provider, Abstract 05/16/2025 External Device Data STL ABSTRACTION Provider, Abstract 05/02/2025 External Device Data STL ABSTRACTION Provider, Abstract 04/25/2025 External Device Data STL ABSTRACTION Provider, Abstract from Last 3 Months Family History Medical [...] Care Team (Late st Contact Info) Description 10/03/2025 2:00 PM SALES FLOOR MANAGER Office Visit [facility] and H[facility] - [place] [address] [place] [address] Hiram Correa MD [address] [facility] [address] [place] [address] Health Maintenance Due Date Last Done [...] Advance Directives For more information, please contact: [phone] Documents on File Type Date Recorded Patient Exploration Engineer Expl anation Advance Directive POA 03/20/2025 1:16 PM Ad lau Directive POA
--- OUTSIDE RECORDS SUMMARY | 2025-07-25 13:16 | XMS_ITS | Clinical Summary ---
Author Organization [facility] Address [address] [place] [address] Care Team Providers Care Visual Basic Programmer Name Role Phone Provider, No Pcp Primary Care Provider Unavailab le Source Comments [facility],non-owned Affiliates and Associated Physician Practices is amultiple site organization consisting of ambulatory clinics and hospital sitesin [place], [place], [place] and [place]. This disclosure is being madepursuant to the Care Everywhere program and may not contain all information available regarding this patient. Last updated 18.[facility] Allergies Active Allergy Reactions Criticality Noted Date [...] Questionnaire-2 Score 0 09/03/2024 [facility] [place] of Occupat ional Health - Occupational Stress [...] time in the past 12 m [facility], were you homeless or living in a penitentiary (including now)? No 08/31/2024 Comments Unknown Sex and Gender Information Value Date Recorded Sex Assigned at Not on file Legal Sex Female 4:14 PM COUTIERIER Gender Identity Not on file Sexual Orientation Not on file Last Filed Vital Signs Vital Sign Reading Time Taken Comments Blood Pressure 141/70 09/03/2024 8:04 AM COUTIERIER Pulse 105 09/03/2024 8:04 AM COUTIERIER Temperature 36.6 C (97.9 F) 09/03/2024 8:04 AM COUTIERIER Respiratory Rate 18 09/03/2024 8:04 AM COUTIERIER Oxygen Saturation 100% 09/03/2024 8:04 AM COUTIERIER Inhaled Oxygen Concentration - - Weight 56.7 kg (125 lb) 09/01/2024 8:07 PM COUTIERIER Height 162.6 cm (5' 4) 09/01/2024 8:07 PM COUTIERIER Body Mass Index 21.46 09/01/2024 8:07 PM COUTIERIER Plan of Treatment Health Maintenance Due Date [...] PANEL (CALCIUM TOTAL) Routine 09/03/2024 2:10 AM COUTIERIER Nontraumatic hemorrhage of right cerebral hemisphere HEMOGLOBIN A1C Add on 08/31/2024 4:12 PM COUTIERIER Nontraumatic hemorrhage of right cerebral hemisphere from Last 3 Months or Most Recently Relevant to Health Maintenance Results * (ABNORMAL) BASIC METABOLIC PANEL (CALCIUM TOTAL) (09/03/2024 2:10 AM COUTIERIER) BUN 26 7 - 26 mg/dL 09/03/2024 3:29 AM [facility] Creatinine 0.87 0.56 - 0.96 mg/dL 09/03/2024 3:29 AM [facility] Sodium 139 136 - 145 mmol/L 09/03/2024 3:29 AM [facility] Potassium 4.6(H) 3.5 - 4.5 mmol/L 09/03/2024 3:29 AM [facility] Chloride 109(H) 98 - 107 mmol/L 09/03/2024 3:29 AM [facility] CO2 22 22 - 29 mmol/L 09/03/2024 3:29 AM [facility] Glucose 125(H) 70 - 99 mg/dL 09/03/2024 3:29 AM [facility] Calcium 8.9 8.4 - 10.2 mg/dL 09/03/2024 3:29 AM [facility] Anion Gap 8 6 - 16 09/03/2024 3:29 AM [facility] BUN/Creatinine Ratio 30(H) 7 - 23 09/03/2024 3:29 AM [facility] Osmolality Calculated 294 275 - 295 mOsm/kg 09/03/2024 3:29 AM [facility] eGFR by CKD-EPI 69(L) >=90 mL/min/1.7 3 m2 09/03/2024 3:29 AM [facility] Blood BLOOD SPECIMEN / Unknown Lab Venipuncture / Unknown 09/03/2024 2:10 AM COUTIERIER 09/03/2024 3:02 AM [facility] us Reina Ma MD LAB - CHEMISTRY ORDERABLES F inal Result [facility] [address] [place] [id number], [facility] [phone] * (ABNORMAL) HEMOGLOBIN A1C (08/31/2024 4:12 PM [facility]) Hemoglobin A1c 6.0(H) <=5.6 % 09/01/2024 8:55 AM [facility] Estimated Average Glucose 126 mg/dL 09/01/2024 8:55 AM [facility] Comment: HbA1c Interpretation: Normal : < 5.7% Pre-diabetes: 5.7-6.4% Diabetes: Equal to or greater than 6.5% Test results diagnostic of diabetes should be repeated for confirmation. Treatment target values recommended by ADA and other clinical organizations should be used to evaluate metabolic control in patients. Reference: [place] Diabetes Association, Standards of Care in Diabetes -2020 In patients 70 years and older consider HbA1c target range of 7.0-7.5% (Reference: Davon Goldstein et al. JAMDA. 2012) The Sebia assay for the measurement of HbA1c is a National Glycohemoglobin Standardization Program (NGSP) certified method. Blood BLOOD SPECIMEN / Unknown Lab Venipuncture / Unknown 08/31/2024 4:12 PM COUTIERIER 08/31/2024 4:33 PM COUTIERIER Ayan Livingston MD LAB - CHEMISTRY ORDERABLES Fi nal Result [facility] [address] [place] [address], [facility] [phone] from Last 3 Months or Most Recently Relevant to Health Maintenance Insurance MEDICARE AETNA MEDICARE AETNA Advance Directives * Full Code (Latest Code Status on File) Date Activated Date Inactivated Comments 08/31/2024 11:06 AM 09/03/2024 3:17 PM Care Teams Visual Basic Programmer Relationship Specialty Start Date End Date Provider, No Pcp PCP - General 08/30/24
--- NOTE | 2025-07-25 13:36 | ECG_ITS ---
Test Date: 2025-07-25 14:08:59 Measurements Intervals [place] Rate: 63 P: 92 NE: 233 QRS: 106 QRSD: 158 T: 89 QT: 484 QTc: 498 Interpretive Statements ELECTRONIC VENTRICULAR PACEMAKER Electronically Signed On 07-25-2025 18:10:08 SEAFOOD TECHNOLOGY SPECIALIST by Zita Fallon M.D.
[2025-07-25 13:52] LABS: Add Urine Microscopic? NO; Appearance Urine Clear (Clear); Glucose Urine UA Negative (Negative); Leukocyte Esterase Ur Negative LEU/UL (Negative); Nitrate Urine Negative (Negative); Specific Grav Ur 1.010 (1.010-1.020)
[2025-07-25] MEDS: SODIUM CHLORIDE 0.9% IV 500 ML 999 ML IV CONT (14:08)
--- OUTSIDE RECORDS SUMMARY | 2025-07-25 14:17 | XMS_ITS | Clinical Summary ---
Author Organization [facility] james [facility] Address [address] [address] Care Team Providers Care Bar Machine Operator Production Name Role Phone Unavailable Primary Care Provider [...] st Contact Info) Description 10/03/2025 2:00 PM JOURNEYMAN PLUMBER Office Visit [facility] Oncology and Hematology - [place] [address] [place] [id number] Hiram Correa MD [address] [facility] flexReceipts [address] [place] [id number] Health Maintenance Due Date Last Done [...] Advance Directives For more information, please contact: [phone] Documents on File Type Date Recorded Patient Energy And Conservation Technician Expl anation Advance Directive POA 03/20/2025 1:16 PM Ad lau Directive POA
--- OUTSIDE RECORDS SUMMARY | 2025-07-25 14:18 | XMS_ITS | Clinical Summary ---
Author Organization [facility] Address [address] [place] [address] Care Team Providers Care Residential Treatment Counselor Name Role Phone Provider, No Pcp Primary Care Provider Unavailab le Source Comments [facility],non-owned Affiliates and Associated Physician Practices is amultiple site organization consisting of ambulatory clinics and hospital sitesin [place], [place], [place] and [place]. This disclosure is being madepursuant to the Care Everywhere program and may not contain all information available regarding this patient. Last updated 18.[facility] Allergies Active Allergy Reactions Criticality Noted Date [...] Recorded Patient Health Questionnaire-2 Score 0 09/03/2024 [facility] [place] [facility] - Occupational Stress [...] any time in the past 12 m [facility], were you homeless or living in a snf (including now)? No 08/31/2024 Comments Unknown Sex and Gender Information Value Date Recorded Sex Assigned at Not on file Legal Sex Female 4:14 PM SAND DIGGER Gender Identity Not on file Sexual Orientation Not on file Last Filed Vital Signs Vital Sign Reading Time Taken Comments Blood Pressure 141/70 09/03/2024 8:04 AM SAND DIGGER Pulse 105 09/03/2024 8:04 AM SAND DIGGER Temperature 36.6 C (97.9 F) 09/03/2024 8:04 AM SAND DIGGER Respiratory Rate 18 09/03/2024 8:04 AM SAND DIGGER Oxygen Saturation 100% 09/03/2024 8:04 AM SAND DIGGER Inhaled Oxygen Concentration - - Weight 56.7 kg (125 lb) 09/01/2024 8:07 PM SAND DIGGER Height 162.6 cm (5' 4) 09/01/2024 8:07 PM SAND DIGGER Body Mass Index 21.46 09/01/2024 8:07 PM SAND DIGGER Plan of Treatment Health Maintenance Due Date [...] PANEL (CALCIUM TOTAL) Routine 09/03/2024 2:10 AM SAND DIGGER Nontraumatic hemorrhage of right cerebral hemisphere HEMOGLOBIN A1C Add on 08/31/2024 4:12 PM SAND DIGGER Nontraumatic hemorrhage of right cerebral hemisphere from Last 3 Months or Most Recently Relevant to Health Maintenance Results * (ABNORMAL) BASIC METABOLIC PANEL (CALCIUM TOTAL) (09/03/2024 2:10 AM SAND DIGGER) BUN 26 7 - 26 mg/dL 09/03/2024 [...] Lab Venipuncture / Unknown 09/03/2024 2:10 AM SAND DIGGER 09/03/2024 3:02 AM [facility] us Reina Ma MD LAB - CHEMISTRY ORDERABLES F inal Result [facility] [address] [place] [id number], [facility] [phone] * (ABNORMAL) HEMOGLOBIN A1C (08/31/2024 4:12 PM [facility]) Hemoglobin A1c 6.0(H) <=5.6 % [...] to evaluate metabolic control in patients. Reference: [place] [employer], Standards of Care in Diabetes -2020 In patients 70 years and older consider HbA1c target range of 7.0-7.5% (Reference: Davon Goldstein et al. JAMDA. 2012) The Sebia assay for the measurement of HbA1c is a National Glycohemoglobin Standardization Program (NGSP) certified method. Blood BLOOD SPECIMEN / Unknown Lab Venipuncture / Unknown 08/31/2024 4:12 PM SAND DIGGER 08/31/2024 4:33 PM SAND DIGGER Ayan Livingston MD LAB - CHEMISTRY ORDERABLES Fi nal Result [facility] [address] [place] [address], [facility] [phone] from Last 3 Months or Most Recently Relevant to Health Maintenance Insurance MEDICARE AETNA MEDICARE AETNA Advance Directives * Full Code (Latest Code Status on File) Date Activated Date Inactivated Comments 08/31/2024 11:06 AM 09/03/2024 3:17 PM Care Teams Residential Treatment Counselor Relationship Specialty Start Date End Date Provider, No Pcp PCP - General 08/30/24
--- OUTSIDE RECORDS SUMMARY | 2025-07-25 14:18 | XMS_ITS | Clinical Summary ---
Author Organization [facility] [address] Address [address] [place] [address] Care Team Providers Care Advance Scout Name Role Phone Angélica Horton NP Primary Care Provider [phone] Allergies Active Allergy Reactions Criticality Noted Date [...] 3 Active vitamins A,C,E-zinc-mayela er (ICAPS) 14,320-226-200 ublz-ke-ugrf capsule Take by mouth Active cholecalciferol (VITAMIN D-3) 56657 unit tablet Take 2,000 Units by mouth [...] on file Legal Sex Female 3:59 PM SHRIMP BOAT CAPTAIN Gender Identity Not on file Sexual Orientation [...] AETNA MEDICARE AETNA SENIOR SUPPLEMENT Care Teams Advance Scout Relationship Specialty Start Date End Date Angélica Horton NP [address] [place] [address] PCP - General Nurse Practitioner 10/07/22
[2025-07-25 14:27] LABS: Influenza A QL RT-PCR Negative (Negative); Influenza B QL RT-PCR Negative (Negative); RSV RNA, RT-PCR Negative (Negative); SARS-CoV-2 RNA PCR Negative (Negative)
[2025-07-25 14:28] LABS: Hematocrit 35.7 % (35.0-42.0); Hemoglobin 11.0 g/dL (11.7-13.8); Immature Granulocyte Percent A 0.3 % (0.0-0.0); Lymphocytes Absolute Auto 2.53 K/mm3 (1.10-4.50); Mean Corpuscular HGB Conc 30.8 g/dL (32-36); Mean Corpuscular Hemoglobin 30.6 pg (27.0-31.0); Mean Corpuscular Volume 99.4 fL (78.0-102.0); Nucleated Red Blood Cells Absolute Auto 0.00 K/mm3 (0.00-0.00); Nucleated Red Blood Cells Perc 0.0 % (0-0.0); Platelet Count Result 259 K/mm3 (150-420); Red Blood Count 3.59 M/mm3 (4.20-5.40); White Blood Count 8.6 K/mm3 (4.8-10.8)
[2025-07-25 14:53] LABS: Alanine Aminotransferase 87 U/L (6-35); Albumin Level 4.4 g/dL (3.5-5.1); Alkaline Phosphatase 100 U/L (38-126); Anion Gap 8 mmol/L (4-12); Aspartate Amino Transferase 54 U/L (14-36); Blood Urea Nitrogen 32 mg/dL (7-17); Calcium 9.5 mg/dL (8.4-10.2); Carbon Dioxide 30 mmol/L (22-30); Chloride 105 mmol/L (98-107); Estimated CRCL calculation 30 ml/min; Estimated Glomerular Filt Rate 44; Glucose 105 mg/dL (65-110); Osmolality Calculated 302 mOsm/kg (285-295); Potassium 4.6 mmol/L (3.4-5.0); Sodium 143 mmol/L (137-145); Total Protein 7.0 g/dL (6.3-8.2)
[2025-07-25 15:01] LABS: NT Pro B Type Natriuretic Pept 1260 pg/mL (19.9-100)
[2025-07-25 15:23] LABS: Thyroid Stimulating Hormone 2.290 uIU/mL (0.465-4.680)
[2025-07-25 15:32] LABS: Ammonia < 9 umol/L (9-30)
[2025-07-25 15:33] LABS: Cannabinoid Screen Urine Negative (Negative)
--- NOTE | 2025-07-25 15:50 | ED.WEAKNESS ---
HPI - Weakness General Chief complaint: Altered Mental Status Stated complaint: Increasing Drowsiness Time Seen by Provider: 07/25/25 13:24 Source: patient and family Mode of arrival: wheelchair Limitations: physical limitation History of Present Illness HPI Narrative: This is a 79-year-old female brought in by her with concerns of weakness and sleeping excessively. Patient has a history of a flutter has a history of multiple CVAs and TIAs with no neurological deficits at this time, with history of hypertension hyperlipidemia and diabetes. Patient is alert answers appropriately although little sluggish but this is secondary to her previous CVAs and is currently at her baseline. Patient states that he is concerned that she sleeps excessively, and there is no urinary frequency no dysuria no hematuria no nausea vomiting no abdominal pain no chest pain or shortness of breath. MD Complaint: generalized weakness Duration: constant Location: generalized Severity: mild Related Data Home Medications ?Medication ?Instructions ?Recorded ?Confirmed ?Last Taken ?Type cholecalciferol (vitamin D3) 25 25 mcg PO DAILY 03/23/25 07/25/25 Unknown History mcg (1,000 unit) capsule docusate sodium 50 mg capsule 50 mg PO DAILY 03/23/25 07/25/25 Unknown History (Stool Softener) multivitamin combination no.56 1 tablet PO DAILY 03/23/25 07/19/25 Unknown History vit C 250 mg-vit E 90 mg-zinc 40 1 tablet PO BID 03/23/25 07/19/25 Unknown History mg-copper 1 [id number]-[id number] capsule (PreserVision AREDS-2) Allergies Allergy/AdvReac Type Severity Reaction Status Date / Time JOAQUINA Inhibitors Allergy Intermediate angioedema Verified 07/25/25 13:24 hydrochlorothiazide (Dyazide) Allergy Intermediate Hyponatremi Verified 07/25/25 13:24 a lisinopril Allergy Intermediate TONGUE Verified 07/25/25 13:24 SWELLING triamterene (Dyazide) Allergy Intermediate Hyponatremi Verified 07/25/25 13:24 a codeine (Tylenol-Codeine #3) AdvReac Intermediate Sleepiness Verified 07/25/25 13:24 tramadol AdvReac Intermediate nausea Verified 07/25/25 13:24 cephalexin AdvReac Mild rash Verified 07/25/25 13:24 Review of Systems Review of Systems: All systems reviewed & are unremarkable except as noted in HPI and below PMFSH Past Medical History Medical History Excessive daytime sleepiness Anemia, iron deficiency H/O: stroke Junctional rhythm Symptomatic bradycardia Chronic anticoagulation Chronic obstructive pulmonary disease Tobacco abuse Alcohol use disorder Atypical atrial flutter Pseudophakia Hypertensive retinopathy of both eyes Nicotine dependence Vitamin D deficiency Venous stasis ulcer Osteopenia Osteoarthritis Macular degeneration Hypertension associated with diabetes Type 2 diabetes mellitus, without long-term current use of insulin Surgical History Surgical History History of cataract removal with insertion of prosthetic lens Right eye only History of right knee joint replacement (2014) History of cholecystectomy History of appendectomy Family History Family History Father Hypertension Mother Hypertension Ovarian cancer Other Arthritis Diabetes mellitus Social History Social History Social History: Surrogate medical decision maker: Tomas Kaba, spouse. Code status: Full code. Smoking packs per day: 1 Smoking cigarettes per day: 20.0 Years smoked: 63 Smoking pack-years: 63.00 Tobacco type: cigarettes Second hand tobacco smoke exposure: Yes Alcohol intake: current Alcohol use details: No alcohol in 2 weeks as of 07/27/2023. Substance use: never Substance use type: does not use Do You Feel Safe in your Home?: Yes Lack of Transportation: No Lack of Food: Never True Current Housing: I Have Housing Concerned About Future Housing: No Difficulty Paying Gas/Electric Bills: No Difficulty Paying for Meds: No Currently Unemployed: No Education: High School Diploma/GED Difficulty w/ Childcare or Family Care: No Living arrangements: with family Occupation/Education: retired Spiritual care concerns: No Exam Const: General: no acute distress Nutritional Appearance: well nourished Orientation/consciousness: patient oriented x3 Limitations: physical limitations HENMT: Head: normal to inspection Eyes: Conjunctivae: conjunctivae normal Pupils: Equal, round and reactive pupils present Neck: Neck: normal visual inspection Chest: Chest palpation & inspection: normal inspection of the chest Resp: Effort & Inspection: normal respiratory effort Auscultation: clear to auscultation bilaterally Cardio: Rate: regular rate Rhythm: regular rhythm GI: GI Palp: Yes Soft to palpation Auscultation: normal bowel sounds : General: Yes bladder normal to palpation Back/Spine/Pelvis: Back: no CVA tenderness Skin: General skin exam: normal color Rashes: no rashes Neuro: General: patient oriented x3, moves all extremities, no meningeal signs and no focal motor deficits Extrem: General: normal to inspection, no clubbing, cyanosis or edema and no pedal edema Course Course Emergency Course: Medical decision making narrative: The patient was evaluated by self in the emergency department. History obtained from the patient and who are independent historians physical exam performed and witnessed by nurse. External medical records were reviewed at this time. EKG shows a paced rhythm with some of [address] or T changes. Patient had a blood work that was within normal limits, CT scan performed shows no acute intracranial process. UA negative. The patient had a TSH and ammonia level which were all within normal limits. Repeat assessment: The patient is doing well on repeat exam with no acute distress. Symptoms are stable since arrival to the emergency department Vitals are stable on repeat. Family and patient and agree with discussion after shared medical decision-making and agree with discharge. All questions answered to the patient and 's satisfaction Follow up with primary within 3 to 5 days. Patient provided strict return precautions and return to ED if any worsening symptoms. Vital Signs Vital signs: Vital Signs Temperature 36.3 C L 07/25/25 13:12 Pulse Rate 62 07/25/25 13:12 Respiratory Rate 20 07/25/25 13:12 Blood Pressure 127/59 L 07/25/25 13:12 Pulse Oximetry 100 07/25/25 13:12 Oxygen Delivery Room Air 07/25/25 13:12 Temperature 36.3 C L 07/25/25 13:12 Pulse Rate 77 07/25/25 15:45 Respiratory Rate 16 07/25/25 15:45 Blood Pressure 147/79 H 07/25/25 15:45 Pulse Oximetry 99 07/25/25 15:46 Oxygen Delivery Room Air 07/25/25 13:12 MDM - Weakness Lab Data 07/25/25 14:24 07/25/25 14:24 Labs: Lab Results 07/25/25 07/25/25 Range/Units 13:45 14:24 WBC 8.6 (4.8-10.8) K/mm3 RBC 3.59 L (4.20-5.40) M/mm3 Hgb 11.0 L (11.7-13.8) g/dL Hct 35.7 (35.0-42.0) % MCV 99.4 (78.0-102.0) fL MCH 30.6 (27.0-31.0) pg MCHC 30.8 L (32-36) g/dL RDW 14.9 H (11.6-14.4) % Plt Count 259 (150-420) K/mm3 MPV 9.0 L (9.2-11.8) fl Immature Gran % (Auto) 0.3 H (0.0-0.0) % Neut % (Auto) 56.8 (50.0-70.0) % Lymph % (Auto) 29.4 (18.0-42.0) % Crisp % (Auto) 10.6 (2.0-11.0) % Eos % (Auto) 2.2 (1.0-6.0) % Baso % (Auto) 0.7 (0.0-1.0) % Lymph # (Auto) 2.53 (1.10-4.50) K/mm3 Crisp # (Auto) 0.91 H (0.10-0.90) K/mm3 Eos # (Auto) 0.19 (0.02-0.50) K/mm3 Baso # (Auto) 0.06 (0.00-0.10) K/mm3 Abs Immat Gran (auto) 0.03 H (0.00-0.00) K/mm3 Absolute Neuts (auto) 4.90 (1.70-7.20) K/mm3 Absolute Nucleated RBC 0.00 (0.00-0.00) K/mm3 Nucleated RBC % 0.0 (0-0.0) % Sodium 143 (137-145) mmol/L Potassium 4.6 (3.4-5.0) mmol/L Chloride 105 (98-107) mmol/L Carbon Dioxide 30 (22-30) mmol/L Anion Gap 8 (4-12) mmol/L BUN 32 H (7-17) mg/dL Creatinine 1.18 H (0.7-1.0) mg/dL Estim Creat Clear Calc 30 ml/min Estimated GFR 44 L (59 - ) Glucose 105 (65-110) mg/dL Calculated Osmolality 302 H (285-295) mOsm/kg Lactic Acid 1.2 (0.7-2.0) mmol/L Calcium 9.5 (8.4-10.2) mg/dL Total Bilirubin 1.1 (0.2-1.3) mg/dL AST 54 H (14-36) U/L ALT 87 H (6-35) U/L Alkaline Phosphatase 100 (38-126) U/L Ammonia < 9 L (9-30) umol/L NT-Pro-B Natriuret Pep 1260 H (19.9-100) pg/mL Total Protein 7.0 (6.3-8.2) g/dL Albumin 4.4 (3.5-5.1) g/dL TSH 2.290 (0.465-4.680) uIU/mL Urine Color Light yellow (Yellow) Urine Appearance Clear (Clear) Urine pH 6.0 (5.0-8.0) Ur Specific Elmo 1.010 (1.010-1.020) Urine Protein Negative (Negative) Urine Glucose (UA) Negative (Negative) Urine Ketones Negative (Negative) Ur Blood (Man) Negative (Negative) Urine Nitrate Negative (Negative) Urine Bilirubin Negative (Negative) Urine Urobilinogen 0.2 (0.2-1.0) mg/dL Leukocyte Esterase Rfl Negative (Negative) MAURA/UL Urine Opiates Screen Negative (Negative) Urine Methadone Screen Negative (Negative) Ur Barbiturates Screen Negative (Negative) Ur Phencyclidine Scrn Negative (Negative) Ur Amphetamine Screen Negative (Negative) U Benzodiazepines Scrn Negative (Negative) Urine Cocaine Screen Negative (Negative) U Cannabinoids Screen Negative (Negative) Influenza A (RT-PCR) Negative (Negative) Influenza B (RT-PCR) Negative (Negative) RSV (RT-PCR) Negative (Negative) SARS-CoV-2 RNA (RT-PCR) Negative (Negative) Critical Care Time Critical Care Time Critical Care Time: No Discharge Plan Discharge Clinical Impression: Weakness due to cerebrovascular accident (CVA) Patient Disposition: Home Condition: Stable Instructions: Antibiotic Form, Weakness (ED) Additional Instructions: Advised to continue current medical regimen and to follow with primary within next 3 to 5 days for further evaluation and treatment. Patient Language: Ukrainian Prescriptions: No Action losartan 50 mg tablet See Rx Instructions .ROUTE .COMPLEX Qty: 90 3RF Dose Instruction: TAKE 1 TABLET BY MOUTH DAILY Rx Instructions: TAKE 1/2 TABLET BY MOUTH DAILY spironolactone 50 mg tablet See Rx Instructions .ROUTE .COMPLEX Qty: 90 3RF Dose Instruction: TAKE 1 TABLET BY MOUTH DAILY Rx Instructions: TAKE 1/2 TABLET BY MOUTH DAILY Stool Softener 50 mg capsule 50 mg PO DAILY cholecalciferol (vitamin D3) 25 mcg (1,000 unit) capsule 25 mcg PO DAILY PreserVision AREDS-2 250-90-40-1 mg capsule 1 tablet PO BID multivitamin combination no.56 Tablet,Chewable 1 tablet PO DAILY Rx Instructions: Takes 2 per day atenolol 25 mg tablet See Rx Instructions .ROUTE .COMPLEX Qty: 90 3RF Dose Instruction: TAKE 1 TABLET BY MOUTH DAILY Rx Instructions: TAKE 1 TABLET BY MOUTH DAILY amiodarone 100 mg tablet See Rx Instructions .ROUTE .COMPLEX Qty: 90 2RF Dose Instruction: TAKE 1 TABLET BY MOUTH DAILY Rx Instructions: TAKE 1 TABLET BY MOUTH DAILY ferrous sulfate 325 mg (65 mg iron) tablet See Rx Instructions .ROUTE .COMPLEX Qty: 90 0RF Dose Instruction: 325 MG ORALLY DAILY Rx Instructions: 325 MG ORALLY DAILY Xarelto 20 mg tablet See Rx Instructions .ROUTE .COMPLEX Qty: 90 3RF Dose Instruction: TAKE 1 TABLET BY MOUTH DAILY AT 1700 Rx Instructions: TAKE 1 TABLET BY MOUTH DAILY AT 1700 atorvastatin 40 mg tablet See Rx Instructions .ROUTE .COMPLEX Qty: 90 3RF Dose Instruction: TAKE 1 TABLET BY MOUTH AT BEDTIME Rx Instructions: TAKE 1 TABLET BY MOUTH AT BEDTIME Follow-up/Referrals: Angélica Horton NP [Primary Care Provider, [facility]] Time of Disposition: 15:55
--- NOTE | 2025-07-28 15:14 | PC.NURSE ---
blood preliminary, no growth
--- NOTE | 2025-07-29 12:05 | PC.NURSE ---
preliminary blood cultures x2 reviewed. no growth in 48 hours
--- NOTE | 2025-08-01 13:56 | PC.NURSE ---
FINAL BLOOD CULTURE REPORT; NO GROWTH IN 5 DAYS.
[2025-08-01 16:05] LABS: Bilirubin,Total < 0.1 mg/dL (0.2-1.3)
== END 2025-07-25 15:57 | disposition home or self-care (01) ==
PROVIDERS: Emergency Provider Emergency Medicine; PCP Nurse Practitioner Family
DX: I69.359 Hemiplegia and hemiparesis following cerebral infarction affecting unspecified side (principal); I10 Essential (primary) hypertension; E78.5 Hyperlipidemia, unspecified; E11.9 Type 2 diabetes mellitus without complications; F17.210 Nicotine dependence, cigarettes, uncomplicated; Z20.822 Contact with and (suspected) exposure to COVID-19
CPT/HCPCS: 36415; 70450; 71045; 80053; 80307; 81003; 82140; 83605; 83880; 84443; 85025; 87040; 87637; 93005; 96360; 99284; J7040